=== PATIENT | female | born 1955 | race American Indian/Alaskan Native ===

== ENCOUNTER 2017-11-15 09:45 | Day surgery (SDC) | payer MEDICARE ==
[2017-11-15 10:18] VITALS: BMI 46.0
[2017-11-15] MEDS ORDERED: Bupivacaine 0.5% Inj(30mL) ONE (12:24)
[2017-11-15] MEDS ORDERED: Propofol 10 mg/ml Inj (20 ML) ONE (12:44)
[2017-11-15] MEDS ORDERED: Midazolam 2 MG/2 ML VIAL ONE (12:45)
--- NOTE | 2017-11-15 13:45 | PCM.SURG1 ---
Surgeon's Initial Post Op Note - Surgeon's Notes Surgeon: Dr. Arreola Recreation Specialist: Erin Mccoy, PGY2. Ángel Santana, OMS3 Type of Anesthesia: IV Sedation, Local Anesthesia Administered By: Dr. Corcoran Pre-Operative Diagnosis: Non-functional permacath, breast cancer Operative Findings: Intact, upright portacath in the subcutaneous tissue, fully removed in its entirety Post-Operative Diagnosis: same Operation Performed: Removal of portacath from right chest Specimen/Specimens Removed: portacath, portacath fluid culture Estimated Blood Loss: EBL {In ML}: 2 Blood Products Given: N/A Drains Used: No Drains Post-Op Condition: Good Date of Surgery/Procedure: 11/15/17 Time of Surgery/Procedure: 13:00
[2017-11-15] MEDS ORDERED: Oxycodone/Acetaminophen 5/325 mg Tab PO PRN (13:46)
[2017-11-15 13:56] VITALS: PULSE 70
[2017-11-15 14:26] VITALS: O2SAT 98
[2017-11-15 14:27] VITALS: RESP 18; TEMP 98.4
[2017-11-15 14:56] VITALS: BP 129/77
== END 2017-11-15 15:30 | disposition home or self-care (01) ==
LOC: SDS 09:45
PROVIDERS: ATTEND Surgery
DX: T85.618A Breakdown (mechanical) of other specified internal prosthetic devices, implants and grafts, initial encounter (principal); Y83.8 Other surgical procedures as the cause of abnormal reaction of the patient, or of later complication, without mention of misadventure at the time of the procedure; I10 Essential (primary) hypertension; Z85.3 Personal history of malignant neoplasm of breast
CPT/HCPCS: 36590; 87070; 87075; 88300; J0360; J0690; J2250; J2405; J2704; J3010; J7120

== ENCOUNTER 2018-05-26 09:07 | Inpatient (IN) | payer MEDICARE, OTHER ==
[2018-05-26 09:35] VITALS: BMI 45.5
--- NOTE | 2018-05-26 10:03 | ED PDOC ---
Arrival/HPI - General Chief Complaint: Shortness Of Breath Time Seen by Provider: 05/26/18 09:13 Historian: Patient - History of Present Illness Narrative History of Present Illness (Text): 05/26/18 09:58 62 year old female, whose past medical history includes hypertension, prior history of breast cancer, presents to the Emergency Department with history of shortness of breath with exertion for past several weeks. Patient reportedly had been evaluated at [facility] 2 days ago, was admitted and informed that she had "kidney problem". Patient signed out against medical advice and came to [place] as her PMD is at this facility. She denies headache or chest pain. She denies fevers or chills. She denies abdominal pain. She denies NEW leg pain or swelling. Denies recent injury. Patient reportedly had blood pressure medication changed two weeks ago. Patient also reportedly had a psychiatric medication changed several weeks ago. She denies any dark or bloody urine or stool. PMD: Dr. Flores 05/26/18 17:40 Past Medical History - Provider Review Nursing Documentation Reviewed: Yes - Infectious Disease Hx of Infectious Diseases: None - Reproductive Menopause: Yes - Cardiac Hx Hypertension: Yes - Pulmonary Hx Chronic Obstructive Pulmonary Disease (COPD): Yes - Neurological Hx Paralysis: No - Hematological/Oncological Hx Blood Transfusions: No Hx Blood Transfusion Reaction: No - Musculoskeletal/Rheumatological Hx Musculoskeletal Disorders: Yes - Genitourinary/Gynecological Hx Reproductive Disorders: No - Psychiatric Hx Bipolar Disorder: Yes Hx Depression: Yes Hx Substance Use: No - Surgical History Other/Comment: L lumpectomy last chemo 2016 - Anesthesia Hx Anesthesia Reactions: No Hx Malignant Hyperthermia: No - Suicidal Assessment Feels Threatened In Home Enviroment: No Family/Social History - Physician Review Nursing Documentation Reviewed: Yes Family/Social History: No Known Family HX Smoking Status: Never Smoked Hx Alcohol Use: No Hx Substance Use: No Hx Substance Use Treatment: No Allergies/Home Meds Allergies/Adverse Reactions: Allergies potassium Adverse Reaction (Intermediate, Verified 11/10/17 12:17) "FUNNY FEELING" Home Medications: Home Meds Medication Instructions Recorded Confirmed Febuxostat [Uloric] 80 mg PO QAM 08/19/16 05/26/18 Nebivolol [Bystolic] 10 mg PO BID 08/19/16 05/26/18 Olanzapine [Zyprexa] 20 mg PO DAILY 08/19/16 05/26/18 Clonazepam [Klonopin] 0.5 mg PO DAILY 11/10/17 05/26/18 Albuterol Sulfate [Ventolin Hfa] 2 puff NEB Q6 PRN 05/26/18 05/26/18 Benztropine [Cogentin] 1 mg PO QPM 05/26/18 05/26/18 Irbesartan [Irbesartan] 150 mg PO BID 05/26/18 05/26/18 Olanzapine [Zyprexa] 2.5 mg PO DAILY 05/26/18 05/26/18 traZODone [Desyrel] 50 mg PO DAILY 05/26/18 05/26/18 Review of Systems - Review of Systems Constitutional: Fatigue. absent: Fevers Eyes: absent: Vision Changes ENT: absent: Hearing Changes Respiratory: SOB. absent: Wheezing Cardiovascular: GUNTER, Orthopnea. absent: Chest Pain, Syncope Gastrointestinal: absent: Abdominal Pain, Diarrhea, Nausea Genitourinary Female: absent: Dysuria, Frequency, Hematuria Musculoskeletal: absent: Back Pain, Neck Pain Skin: absent: Rash Neurological: absent: Headache, Focal Weakness Endocrine: Diaphoresis. absent: Polyuria, Polydipsia Hemo/Lymphatic: absent: Easy Bleeding Psychiatric: absent: Depression Physical Exam - Physical Exam Narrative Physical Exam (Text): 05/26/18 10:04 Head: Atraumatic. Normocephalic. Eyes: PERRL. EOMI. Conjunctivae are not pale. ENT: Mucous membranes are moist and intact. Oropharynx is clear and symmetric. Neck: Supple. Full ROM. No JVD. No lymphadenopathy. Cardiovascular: Regular rate. Regular rhythm. Systolic murmur. Distal pulses intact. Pulmonary/Chest: No evidence of respiratory distress. Clear to auscultation bilaterally. No wheezing, rales or rhonchi. Abdominal: Soft and non-distended. There is no tenderness. No rebound, guarding, or rigidity. No organomegaly. Good bowel sounds. Rectal: no gross bleeding Back: No CVA tenderness. Extremities: No calf tenderness. Skin: Skin is warm and dry. No petechiae. No purpura. Neurological: Alert, awake, and oriented. Speech at baseline. No focal motor or sensory deficits. Psychiatric: Good eye contact. Normal interaction, affect, and behavior. Vital Signs Reviewed: Yes Vital Signs Temp Pulse Resp BP Pulse Ox 05/26/18 12:57 98.2 F 67 22 110/64 97 05/26/18 11:29 71 20 111/67 99 05/26/18 09:11 98.9 F 87 25 H 132/104 H 97 Temperature: Afebrile Blood Pressure: Hypertensive Pulse: Regular Respiratory Rate: Normal Appearance: Positive for: Well-Appearing, Non-Toxic, Comfortable Pain Distress: Mild Mental Status: Positive for: Alert and Oriented X 3 Medical Decision Making ED Course and Treatment: 05/26/18 10:04 Impression: 62 year old female presents complaining of dyspnea on exertion over the past 2 weeks as well diaphoresis with exertion. Patient reportedly at [facility] ER found to have a "kidney issue" Plan: -- EKG -- Labs -- Urinalysis -- Reassess and disposition Prior Visits: Notes and results from previous visits were reviewed. Progress Notes: Patient's history supplemented by family at bedside. They provide reports from [facility] and give permission to review: Reports done at [facility] 05/24/18 EXAM: Chest X-ray REPORTED BY: Dr. Ramos READ: 05/24/18 11:50PM IMPRESSION: Elevated right hemidiaphragm. Cardiomegaly and tortuous thoracic aorta clear lungs. EXAM: Renal and Bladder Ultrasound Results Date: May 25, 2018 21:02 EDT IMPRESSION: 1.No hydronephrosis. Midly echogenic renal cortical echotexture suggesting medcial renal disease. 2. Limited view of the lover demonstrate suspicion of several liver lesions, which is suspicious for neoplastic processes given provided history of breast carcinoma. If patient is able, recommend CT chest, abdomen and pelvis with intravenous contrast for metastatic workup. 3. Small amounts of perihepatic ascites and ascites within the pelvis. Exact etiology is not determined, but differential can include changes related to the lover lesions versus other systemic processes. 4. Very limited bladder evaluation due to underdistention. For optimal evaluation, bladder should be more distended. Findings were dsicussed with Dr. Toshia Powell at 11:58PM on 05/25/18 EXAM: Bilateral lower extremity Venous Doppler REPORTED BY: 05/25/18 21:19 EDT IMPRESSION: 1. No evidence of deep venous thrombosis in bilateral common femoral vein, superficial femoral vein and popliteal vein. 2. Large right popliteal cyst. Findings were discussed with Dr. Toshia Powell at 11:58 PM on 05/25/18 EXAM: NM Lung Scan Ventilation & Perfusion REPORTED BY: 05/25/18 13:56 EDT IMPRESSIONS: Low Probability of pulmonary embolism. Lab results: WBC: 05/24/18: 16.1 K/UL H 05/25/18: 18.4 K/UL H Hgb: 05/25/18: 9.6 g/dL L BUN: 05/25/18: 33.0mg/dL H Creatinine: 05/25/18: 29mL/min/1.7 05/26/18 17:48 Patient currently with no hypoxia. No chest pain. No history or signs of active bleeding currently. Patient has leukocytosis but afebrile. No cough or wheezing currently noted. She has recent Lung scan as noted above that is low probability of pulmonary embolism. Patient is anemic. Creatinine remains elevated, this reportedly is higher than baseline as per PMD. I have reviewed labs from [facility] and imaging reports from [facility] with the patient. She denies any dysuria or frequency. She is currently afebrile and cv stable. Dr. Flores informed of UA results, patient will be initiated on antibiotics as per Dr. Flores, started on Rocephin. Lab results and imaging studies reviewed with patient and family, will admit for cardiac monitoring and specialty consultations. - Lab Interpretations Lab Results: 05/26/18 10:20 05/26/18 10:20 Lab Results 05/26/18 11:42: Urine Color Yellow, Urine Appearance Clear, Urine pH 6.0, Ur Specific Ray >= 1.030, Urine Protein 30 H, Urine Glucose (UA) Negative, Urine Ketones Negative, Urine Blood Negative, Urine Nitrate Negative, Urine Bilirubin Small H, Urine Urobilinogen 1.0 H, Ur Leukocyte Esterase Negative, Urine RBC 0 - 2, Urine WBC 0 - 2, Ur Epithelial Cells 4 - 5, Urine Bacteria Mod 05/26/18 10:20: Sodium 138, Potassium 3.9, Chloride 103, Carbon Dioxide 21, Anion Gap 18, BUN 48 H, Creatinine 2.9 H, Est GFR ( Amer) 20, Est GFR ( Non-Af Amer) 16, Random Glucose 112 H, Calcium 8.5, Magnesium 2.5 H, Total Bilirubin 1.2, AST 79 H, ALT 39, Alkaline Phosphatase 272 H, Lactate Dehydrogenase 2949 H, Total Creatine Kinase 149, Troponin I < 0.01, NT-Pro-B Natriuret Pep 608 H, Total Protein 6.3, Albumin 3.3, Globulin 3.0, Albumin/ Globulin Ratio 1.1 05/26/18 10:20: PT 13.3 H, INR 1.15, APTT 27.1 05/26/18 10:20: WBC 15.2 H D, RBC 4.17, Hgb 9.8 L D, Hct 31.7 L, MCV 76.0 L D, MCH 23.5 L, MCHC 30.9 L, RDW 16.0 H, Plt Count 424, MPV 9.0, Gran % 82.2 H, Lymph % (Auto) 5.3 L, [place] % (Auto) 9.4 H, Eos % (Auto) 3.0, Baso % (Auto) 0.1, Gran # 12.53 H, Lymph # (Auto) 0.8 L, [place] # (Auto) 1.4 H, Eos # (Auto) 0.5, Baso # (Auto) 0.01 I have reviewed the lab results: Yes - RAD Interpretation Radiology Orders: 05/26/18 11:11 CHEST PORTABLE [RAD] Stat - EKG Interpretation Interpreted by ED Physician: Yes Type: 12 lead EKG - Medication Orders Current Medication Orders: Benztropine Mesylate (Cogentin) 1 mg PO QPM TAZ Clonazepam (Klonopin) 0.5 mg PO DAILY TAZ PRN Reason: Protocol Last Admin: 05/26/18 16:02 Dose: 0.5 mg Behavioural Document 05/26/18 16:02 RT (Rec: 05/26/18 16:02 RT [id number]) Maintenance Maintenance Dose Yes Nonmedicinal Nonmedicinal Interventions Therapeutic Communication Re-Assess: Reassess Psych Meds Document 05/26/18 17:02 RT (Rec: 05/26/18 17:39 RT [id number]) Reassess Psych Med Effective Dextrose/Sodium Chloride (Dextrose 5%/0.45% Ns 1000 Ml) 1,000 mls @ 75 mls/hr IV .[id number] TAZ Last Admin: 05/26/18 16:02 Dose: 75 mls/hr eMAR Start Stop Document 05/26/18 16:02 RT (Rec: 05/26/18 16:04 RT [id number]) Intravenous Solution Start Date 05/26/18 Start Time 16:02 End Date 05/26/18 Ceftriaxone Sodium (Rocephin 1 Gram Ivpb) 1 gm in 100 mls @ 100 mls/hr IVPB DAILY TAZ PRN Reason: Protocol Last Admin: 05/26/18 17:39 Dose: 100 mls/hr eMAR Start Stop Document 05/26/18 17:39 RT (Rec: 05/26/18 17:39 RT [id number]) Intravenous Solution Start Date 05/26/18 Start Time 17:39 End Date 05/26/18 End time 18:40 Total Infusion Time 61 Levalbuterol HCl (Xopenex) 1.25 mg IH TIDRESP TAZ Olanzapine (Zyprexa) 20 mg PO DAILY TAZ Olanzapine (Zyprexa) 2.5 mg PO DAILY TAZ PRN Reason: Protocol Last Admin: 05/26/18 16:02 Dose: 2.5 mg Behavioural Document 05/26/18 16:02 RT (Rec: 05/26/18 16:02 RT [id number]) Maintenance Maintenance Dose Yes Behavior Behavior for Medication: Anxiety Trazodone HCl (Desyrel) 50 mg PO DAILY [facility] Last Admin: 05/26/18 16:02 Dose: 50 mg Discontinued Medications Pneumococcal Polyvalent Vaccine (Pneumovax 23 Vaccine) 0.5 ml IM .ONCE ONE Stop: 05/26/18 14:08 - Scribe Statement The provider has reviewed the documentation as recorded by the Zachery Hurley Provider Scribe Attestation: All medical record entries made by the Zachery were at my direction and personally dictated by me. I have reviewed the chart and agree that the record accurately reflects my personal performance of the history, physical exam, medical decision making, and the department course for this patient. I have also personally directed, reviewed, and agree with the discharge instructions and disposition. Disposition/Present on Arrival - Present on Arrival Any Indicators Present on Arrival: No History of DVT/PE: No History of Uncontrolled Diabetes: No Urinary Catheter: No History of Decub. Ulcer: No History Surgical Site Infection Following: None - Disposition Have Diagnosis and Disposition been Completed?: Yes Diagnosis: Acute renal failure, Leukocytosis, Anemia, Dyspnea on exertion, Liver lesion Disposition: HOSPITALIZED Disposition Time: 11:00 Patient Plan: Admission Patient Problems: Current Active Problems Problem Status Onset Acute renal failure Acute Anemia Acute Dyspnea on exertion Acute Leukocytosis Acute Liver lesion Acute Condition: FAIR
[2018-05-26 10:34] LABS: BASO # 0.01 K/mm3 (0.0-2.0); BASO % 0.1 % (0.0-3.0); EOS # 0.5 (0.0-0.7); GRAN # 12.53 (1.4-6.5); GRAN % 82.2 % (50.0-68.0); HEMOGLOBIN 9.8 g/dL (12.0-16.0); LYMPH # 0.8 (1.2-3.4); LYMPH % 5.3 % (22.0-35.0); MEAN CORPUSCULAR HEMOGLOBIN 23.5 pg (25.0-35.0); MEAN CORPUSCULAR HGB CONC 30.9 g/dl (31.0-37.0); MONO # 1.4 (0.1-0.6); MONO % 9.4 % (1.0-6.0); RBC 4.17 10^6/uL (3.5-6.1); WHITE BLOOD COUNT 15.2 10^3/ul (4.5-11.0)
[2018-05-26 10:42] LABS: ALB/GLOB RATIO 1.1 (1.1-1.8); ALBUMIN 3.3 g/dL (3.0-4.8); ALT/SGPT 39 U/L (7-56); AST/SGOT 79 U/L (14-36); BLOOD UREA NITROGEN 48 mg/dL (7-21); CALCIUM 8.5 mg/dL (8.4-10.5); GFR NON-AFRICAN AMERICAN 16
[2018-05-26 10:45] LABS: INR 1.15; PARTIAL THROMBOPLASTIN TIME 27.1 Seconds (25.1-36.5); PROTHROMBIN TIME 13.3 SECONDS (9.4-12.5)
[2018-05-26 10:54] LABS: B-TYPE NATRIURETIC PEPTIDE 608 pg/mL (0-450); TROPONIN I < 0.01 ng/mL
[2018-05-26 11:50] LABS: URINE BILIRUBIN SMALL (NEGATIVE); URINE BLOOD NEGATIVE (NEGATIVE); URINE GLUCOSE (UA) NEGATIVE (NEGATIVE); URINE LEUKOCYTE ESTERASE NEGATIVE Leu/uL (NEGATIVE); URINE PROTEIN 30 mg/dL (<30 mg/dL)
[2018-05-26 11:51] LABS: URINE APPEARANCE CLEAR (CLEAR); URINE COLOR YELLOW (YELLOW)
[2018-05-26 11:57] LABS: URINE BACTERIA MOD (NEG); URINE RBC 0 - 2 /hpf (0-2); URINE WBC 0 - 2 /hpf (0-6)
--- NOTE | 2018-05-26 12:00 | RAD ---
Date of service: 05/26/2018 HISTORY: sob with exertion COMPARISON: 10/12/2016 FINDINGS: LUNGS: No active pulmonary disease. PLEURA: No significant pleural effusion identified, no pneumothorax apparent. CARDIOVASCULAR: Mild cardiomegaly. Elevation of the right image OSSEOUS STRUCTURES: No significant abnormalities. VISUALIZED UPPER ABDOMEN: Normal. OTHER FINDINGS: None. IMPRESSION: No active disease.
[2018-05-26] MEDS ORDERED: Pneumococcal 23-Valent Vaccine IM ONE (14:07)
[2018-05-26] MEDS ORDERED: Barium Sulfate Susp 2.1% w/v, 2.0% w/w 450 mL Bottle PO ONE (15:33)
[2018-05-26] MEDS: Dextrose 5%/0.45% NS 1,000 ML IV SCH (16:02)
[2018-05-26] MEDS: cefTRIAXone 1 gm 1 GM/100 ML BAG IVPB SCH (17:39)
--- NOTE | 2018-05-26 17:41 | CARD ---
APPROVED REPORT Date of service: 05/26/2018 EKG Measurement Heart [id number] CT 170P26 [id number] <Conclusion> Normal sinus rhythm Minimal voltage criteria for LVH, may be normal variant Possible Anterior infarct, age undetermined Abnormal ECG
[2018-05-26] MEDS: Levalbuterol 1.25 MG/3 ML Inhal Soln UD IH SCH (20:24)
--- NOTE | 2018-05-26 21:14 | HP ---
Copied To: Jessica Flores MD Attending MD: Jessica Flores MD HISTORY OF PRESENT ILLNESS: The patient is 62 years old, known to me from office practice. Recently since valsartan was recalled, she was stared on irbesartan. Patient sates since she had that she started to develop some shortness of breath with leg swelling. It has been going on for last two weeks, but it has had got worse yesterday so she went to [facility]. She was evaluated, started on IV fluid but for some reason she got upset, signed against medical advice and came to emergency room for further evaluation. Complaining of feeling weak, tired, short of breath. Denies any nausea. Does complain of loss of appetite. No cough, congestion. No diarrhea. PAST MEDICAL HISTORY: Significant for; 1. Bipolar disorder. 2. Hypertension. 3. Hyperlipidemia. 4. History of gout. 5. History of CA breast. Patient had chemotherapy and radiation for her breast cancer and she is under the care of Dr. Mariano for that. ALLERGIES: POTASSIUM. MEDICATIONS AT HOME: The patient is on trazodone 50 mg daily, Zyprexa 2.5 mg in the morning, Zyprexa 20 mg at bedtime, Bystolic 10 mg twice a day, irbesartan 150 twice a day, Uloric 80 mg daily, Klonopin 0.5 b.i.d., Cogentin 1 mg in the evening and nebulizer treatment. SOCIAL HISTORY: Denies smoking, drinking or alcohol use. REVIEW OF SYSTEMS: Complaining of generalized weakness. PHYSICAL EXAMINATION: GENERAL: She is awake, alert, oriented, communicative. VITAL SIGNS: She is afebrile, pulse 70, respiration 17, blood pressure 105/60. LUNGS: Bilateral fair airflow. No rhonchi or crackle. HEART: S1, S2 audible. ABDOMEN: Soft, nontender. No rebound. No guarding. NEUROLOGICAL: She is awake, alert, oriented, communicative. LABORATORY EXAM: WBC 16.2, hemoglobin 9.8, hematocrit 31.7, platelets 424. PT 13.3, INR 1.15. Chemistry: Sodium 138, potassium 3.9. chloride 103, CO2 of 21, BUN 48, creatinine 2.9. Blood sugar of 112. Magnesium 2.5. AST 79, alkaline phosphatase 272. LDH is 2949. BNP is 608. Urinalysis shows small bilirubin. Blood culture, urine cultures are pending. DIAGNOSTIC DATA: X-ray of chest, no active disease. ASSESSMENT: 1. Acute renal failure, her last creatinine in 12/2017 was 0.8. 2. Leukocytosis, etiology unclear yet. 3. History of cancer of breast, status post lumpectomy, chemotherapy and radiation. 4. History of gout. 5. Hypertension. 6. Exertional dyspnea. PLAN: We will restart her usual medication. Order for echocardiogram. I will also order for CT of the abdomen and pelvis. She has ultrasound done in [facility], but told she has a spot on the liver. However, her LDH seems to be high. There is suspicion of questionable metastasis in the liver. I will order for Xopenex. Nephrology consult and Cardiology consult has been requested. Jessica Flores MD
[2018-05-27] MEDS: Dextrose 5%/0.45% NS 1,000 ML IV SCH (05:25)
[2018-05-27 06:53] LABS: ALB/GLOB RATIO 1.1 (1.1-1.8); ALBUMIN 2.9 g/dL (3.0-4.8); CALCIUM 8.1 mg/dL (8.4-10.5); URIC ACID 4.3 mg/dL (2.5-6.2)
[2018-05-27 06:56] LABS: BASO # 0.01 K/mm3 (0.0-2.0); BASO % 0.1 % (0.0-3.0); EOS # 0.6 (0.0-0.7); EOS % 4.9 % (1.5-5.0); GRAN # 10.07 (1.4-6.5); GRAN % 76.5 % (50.0-68.0); LYMPH % 7.5 % (22.0-35.0); MEAN CELL VOLUME 75.3 fl (80.0-105.0); MEAN CORPUSCULAR HEMOGLOBIN 23.4 pg (25.0-35.0); MEAN PLATELET VOLUME 9.1 fl (7.0-11.0); MONO # 1.4 (0.1-0.6); RBC 3.85 10^6/uL (3.5-6.1); RED CELL DISTRIBUTION WIDTH 16.2 % (11.5-14.5); WHITE BLOOD COUNT 13.2 10^3/ul (4.5-11.0)
[2018-05-27] MEDS: Levalbuterol 1.25 MG/3 ML Inhal Soln UD IH SCH ×3 (08:42→19:35)
--- NOTE | 2018-05-27 09:12 | CP.PCM.CON ---
History of Present Illness - History of Present Illness History of Present Illness: awake, alert, mild shortness of breath, daughter at bedside Reason for consultation: cardiac evaluation of shortness of breath Brief history of present illness: A 62 year old female, morbidly obese, who came in to [facility] due to shortness of breath on exertion for the past several weeks. They went to [facility] initially but signed against medical advice.She follows up with Dr. Flores. History of hypertension, COPD, bipolar disorder, depression, hyperlipidemia, gout, left breast lumpectomy, breast cancer with chemotherapy 08/2017. Seen and examined by me and Dr. Leon Review of Systems - Review of Systems All systems: reviewed and no additional remarkable complaints except Review of Systems: from HPI Past Patient History - Infectious Disease Hx of Infectious Diseases: None - Past Social History Smoking Status: Never Smoked - CARDIAC Hx Hypertension: Yes - PULMONARY Hx Chronic Obstructive Pulmonary Disease (COPD): Yes - NEUROLOGICAL Hx Paralysis: No - HEENT Hx HEENT Problems: No - RENAL Hx Chronic Kidney Disease: Yes Other/Comment: arf abnormal labs recently [place] [facility] [place] - ENDOCRINE/METABOLIC Hx Endocrine Disorders: No - HEMATOLOGICAL/ONCOLOGICAL Hx Blood Transfusions: No Hx Blood Transfusion Reaction: No - INTEGUMENTARY Hx Dermatological Problems: Yes Other/Comment: rcw scar from pac removal 11/15/2017, left breast scar, thick hard toenails, hx r ft cellulitis - MUSCULOSKELETAL/RHEUMATOLOGICAL Hx Musculoskeletal Disorders: Yes - GASTROINTESTINAL Hx Gastrointestinal Disorders: Yes (obese) - GENITOURINARY/GYNECOLOGICAL Hx Reproductive Disorders: No - PSYCHIATRIC Hx Bipolar Disorder: Yes Hx Depression: Yes Hx Substance Use: No - SURGICAL HISTORY Other/Comment: L lumpectomy last chemo 2016 - ANESTHESIA Hx Anesthesia Reactions: No Hx Malignant Hyperthermia: No Meds Allergies/Adverse Reactions: Allergies Allergy/AdvReac Type Severity Reaction Status Date / Time potassium AdvReac Intermediate "FUNNY Verified 11/10/17 12:17 FEELING" - Medications Medications: Current Medications Benztropine Mesylate (Cogentin) 1 mg PO QPM TAZ Last Admin: 05/26/18 21:34 Dose: 1 mg Clonazepam (Klonopin) 0.5 mg PO DAILY TAZ PRN Reason: Protocol Last Admin: 05/26/18 16:02 Dose: 0.5 mg Dextrose/Sodium Chloride (Dextrose 5%/0.45% Ns 1000 Ml) 1,000 mls @ 75 mls/hr IV .[id number] [facility] Last Admin: 05/27/18 05:25 Dose: 75 mls/hr Ceftriaxone Sodium (Rocephin 1 Gram Ivpb) 1 gm in 100 mls @ 100 mls/hr IVPB DAILY TAZ PRN Reason: Protocol Last Admin: 05/26/18 17:39 Dose: 100 mls/hr Levalbuterol HCl (Xopenex) 1.25 mg IH TIDRESP [facility] Last Admin: 05/27/18 08:42 Dose: 1.25 mg Nystatin (Nystatin Oral Susp) 5 ml PO QID [facility] Olanzapine (Zyprexa) 20 mg PO DAILY [facility] Olanzapine (Zyprexa) 2.5 mg PO DAILY [facility] PRN Reason: Protocol Last Admin: 05/26/18 16:02 Dose: 2.5 mg Trazodone HCl (Desyrel) 50 mg PO DAILY [facility] Last Admin: 05/26/18 16:02 Dose: 50 mg Physical Exam - ENT Exam ENT Exam: Mucous Membranes Dry - Respiratory Exam Respiratory Exam: Accessory Muscle Use, Decreased Breath Sounds, Wheezes Additional comments: mild Expiratory wheezing - Cardiovascular Exam Cardiovascular Exam: REGULAR RHYTHM, +S1, +S2 - GI/Abdominal Exam GI & Abdominal Exam: Normal Bowel Sounds, Soft - Extremities Exam Additional comments: 2+ pedal edema - Neurological Exam Neurological exam: Alert, Oriented x3 - Psychiatric Exam Psychiatric exam: Normal Affect - Skin Skin Exam: Dry, Intact, Warm Results - Vital Signs Recent Vital Signs: Last Vital Signs Temp 99.1 F 05/27/18 06:00 Pulse 80 05/27/18 06:00 Resp 18 05/27/18 06:00 BP 108/70 05/27/18 06:00 Pulse Ox 98 05/27/18 06:00 - Labs Result Diagrams: 05/27/18 06:00 05/27/18 06:00 Labs: Laboratory Results - last 24 hr 05/27/18 05/27/18 06:00 06:00 WBC 13.2 H RBC 3.85 Hgb 9.0 L Hct 29.0 L MCV 75.3 L MCH 23.4 L MCHC 31.0 RDW 16.2 H Plt Count 400 MPV 9.1 Gran % 76.5 H Lymph % (Auto) 7.5 L [place] % (Auto) 11.0 H Eos % (Auto) 4.9 Baso % (Auto) 0.1 Gran # 10.07 H Lymph # (Auto) 1.0 L [place] # (Auto) 1.4 H Eos # (Auto) 0.6 Baso # (Auto) 0.01 Sodium 138 Potassium 3.5 L Chloride 104 Carbon Dioxide 21 Anion Gap 16 BUN 49 H Creatinine 2.3 H Est GFR ( Amer) 26 Est GFR (Non-Af Amer) 21 Random Glucose 107 Uric Acid 4.3 Calcium 8.1 L Total Bilirubin 0.6 AST 87 H ALT 28 Alkaline Phosphatase 269 H Total Protein 5.7 L Albumin 2.9 L Globulin 2.8 Albumin/Globulin Ratio 1.1 Assessment & Plan - Assessment and Plan (Free Text) Assessment: A 62 year old female, morbidly obese, who came in to [facility] due to shortness of breath on exertion for the past several weeks. They went to [facility] initially but signed against medical advice.She follows up with Dr. Flores (PMD) History of hypertension, COPD, bipolar disorder, depression, hyperlipidemia, gout, left breast lumpectomy, breast cancer with chemotherapy . She takes Valsartan but due to recall changed to Irbesartan. Daughter claimed since then she had shortness of breath and log swelling. Also daughter claimed that they have home renovations adjacent to her room wondering if that causes her shortness of breath too. Rule out congestive heart failure. Exacerbation of COPD. [place] [facility] [place]: 05/25/18- VQ Lung Scan- low probability of pulmonary embolism. 05/25/18- Venous doppler of both legs- no evidence of DVT. Large right popliteal cyst. Review of previous cardiac work up: 02/17/16- Stress Test done- Normal myocardial perfusion 11/15/17- Removal of samuel cath right chest Plan: For ECHO to evaluate LV function Mild shortness of breath Continue nebulizer treatment Will start low dose Solumedrol Heart rate and blood pressure controlled Elevated BUN/Creatinine CT of pelvis and abdomen done awaiting final report Continue IV fluids D5 1/2 NSS at 75 cc/hr for hydration Continue current medications Continue current treatment Further recommendations during hospital course Will follow up Plan and treatment discussed with Dr. Leon Thank you Dr. Flores for the opportunity of taking care of Ms. Leydi Strong - Date & Time Date: 05/27/18 Time: 06:35
--- NOTE | 2018-05-27 10:15 | CON ---
Copied To: Genaro Goldman MD Attending MD: Genaro Godlman MD DATE: 05/27/2018 The patient admitted by Dr. Flores. REFERRING MD: Jessica Flores MD. REASON FOR CONSULTATION: Evaluation of a patient unknown to me who presents with an elevated BUN and creatinine. HISTORY OF PRESENT ILLNESS: The patient is a pleasant 62-year-old black female with a long history of bipolar disorder, never on lithium; history of hypertension of years duration; hyperlipidemia; history of gout; history of left breast cancer, status post chemotherapy, radiation therapy, but no chemotherapy in the last year. History of anemia. The patient presented to [facility] not feeling well. She was noted to have a mild elevation of BUN and creatinine. According to her daughter, a renal ultrasound was done, which was unremarkable. The patient left to come to [facility]. In [facility], she was noted to have a BUN of 48 with a creatinine of 2.9. Her baseline BUN is less than 10 with a creatinine of 0.7 dating back to 11/2017 - 12/2017. The patient has had no recent new medications other than a change from generic Diovan to generic Avapro. She had been stable on angiotensin receptor blockers in the past. She does not use diuretic therapy. She has had no recent medication changes. She has had no recent dye studies. The patient had been complaining of some mild diarrhea over the last several days. She is also complaining of some mild shortness of breath. The patient presents to the hospital for evaluation of her elevated BUN and creatinine. She has no history of UTIs. No family history of kidney disease. She is also noted to be mildly anemic. Her urines were unremarkable with trace protein and otherwise normal. With IV fluid hydration, her BUN has dropped, has remained stable 48-49 and creatinine has dropped from 2.9 to 2.3. The patient had an abdominal and pelvic CT scan, results are pending at the time of this dictation. PAST MEDICAL HISTORY: Significant for bipolar disorder, on Zyprexa. The patient states she never had lithium. History of hypertension, controlled in the outpatient setting on Bystolic and valsartan, which was switched to irbesartan. Hyperlipidemia. History of gout. History of left-sided breast cancer. Last chemotherapy was 1 year ago. History of anemia. MEDICATIONS AT HOME: Include that of trazodone, Zyprexa, Bystolic, irbesartan, Uloric, Klonopin, Cogentin, and Ventolin inhaler therapy. ALLERGIES: THE PATIENT IS ALLERGIC TO POTASSIUM, MORE OF A SIDE EFFECT THAN AN ALLERGY. CURRENT MEDICATIONS IN HOSPITAL: Include that of Cogentin, trazodone, D5 half-normal saline 75 mL an hour, Klonopin, nystatin, one dose of Rocephin, Xopenex and Zyprexa. SOCIAL HISTORY: No history of cigarette smoking. No history of alcohol use. No history of substance abuse. FAMILY HISTORY: Father of occupational exposure to carcinogens and lung cancer. Mother of bleeding secondary to uterine/ovarian cancer and a history of a CVA. REVIEW OF SYSTEMS: GENERAL: The patient states that appetite has been fair. Weight has been stable. ENT: Denies any hearing or visual problems. PULMONARY: Positive for exertional dyspnea. No history of pneumonia. No history of COPD, bronchitis, asthma. CARDIAC: No history of known coronary artery disease. GI: History of mild diarrhea. No abdominal pain, no constipation. No nausea or vomiting. : No history of previous chronic kidney disease. No history of UTIs. INVESTMENT CONSULTANT: Postmenopausal. ENDOCRINE: No history of diabetes. MUSCULOSKELETAL: No complaints. NEURO: No past history of CVA, TIA, seizures or syncope. HEM/ONC: History of anemia as noted above. History of breast cancer, followed by Oncology. PSYCHIATRIC: History is positive for bipolar disorder. PHYSICAL EXAMINATION: GENERAL: The patient is currently seen with her daughter on telemetry. She appears to be in no acute distress. IV fluids are infusing. VITAL SIGNS: Blood pressure is 108/70, temperature 99.1, respiratory rate is 18. Oxygen saturation is 98%. HEENT: Exam shows her to be normocephalic, atraumatic. Conjunctiva are pale. Sclerae are nonicteric. Pupils equal, reactive to light and accommodation. Extraocular muscles are intact. Posterior pharynx is normal. NECK: Supple. No neck vein distention. No thyromegaly. No lymphadenopathy. No bruits. CHEST: Clear to auscultation and percussion with no rales, rhonchi or wheezing. Positive scar right chest wall in an area of a port removal. CARDIOVASCULAR: Shows a regular rate and rhythm with no audible murmurs, rubs or gallops noted. ABDOMEN: Soft. Obese. Bowel sounds normal. No rebound, guarding or masses. BACK: No CVAT. No spinal tenderness. EXTREMITIES: Show puffy legs, but no pitting edema. No cyanosis or clubbing. Distal lower extremity pulses are reduced at 1-2+ bilaterally. NEURO: Shows her to be alert, oriented x3 with no gross focal motor or sensory deficits noted. LABORATORY DATA AND IMAGING: Admitting abdominopelvic CT scan results are pending. Chest x-ray: No acute pulmonary disease. EKG showed normal sinus rhythm. The patient's daughter states that a renal ultrasound done in [facility] was unremarkable. Labs: CBC, white blood cell count 13.2 with a hemoglobin of 9 and a platelet count of 400,000. Coags: PT of 13.3 with a PTT of 27.1. Chemistries are normal. Potassium is slightly lower at 3.5, down from 3.9. BUN remains stable in the upper 40 range, it is currently 49. Creatinine is down from 2.9 to 2.3 with hydration. Glucose is 107. Uric acid 4.3. Calcium 8.1 with an albumin of 2.9, corrects to normal. Magnesium level was 2.5. Mild elevation of her liver enzymes noted. Urines were unremarkable. Trace protein. Otherwise negative. Microbiology: No results to comment on. ASSESSMENT: 1. Acute renal failure in a patient with no past history of chronic kidney disease. Possibilities include that of perhaps mild diarrhea. Perhaps decreased p.o. fluid hydration. The patient was also switched from one angiotensin receptor wade to another, so I am not certain that is playing a role as she never had any difficulties with generic Diovan. Judiciously, angiotensin receptor wade therapy was discontinued. Agree with IV fluid hydration. Check urine sodium, urine creatinine, urine Saran stain. Await results of her abdominal and pelvic CT scan with attention to the kidneys. Expect to see a fall in BUN and creatinine with hydration. There does not appear to be any infection at this point in time. 2. History of hypertension. Blood pressure is currently well controlled, off medication. She had been on Bystolic and irbesartan in the outpatient setting. 3. History of hyperlipidemia. The patient is on diet therapy. 4. History of gout. The patient had been on Uloric. Uric acid levels are normal. With her elevated BUN and creatinine, if the patient should continue Uloric, which should be decreased to 40 mg a day. 5. History of breast cancer. Status post chemotherapy, radiation therapy. No recent intervention. This appears to be stable. There is some question about the possibility of a defect seen in her liver. She does of note have elevated liver enzymes. We will await results of the abdominal CT scan. 6. History of anemia. Hemoglobin is down to 9. I will check iron, TIBC, ferritin, B12, folate levels. PLAN: 1. Discussed with the patient and her daughter in detail. We will continue IV fluid hydration. We will avoid angiotensin receptor wade therapy. We will await results of the imaging studies. I will obtain urine electrolytes and a urine Saran stain. The patient needs accurate I's and O's and I expect her BUN and creatinine to drift down to normal. 2. Await results of abdominopelvic CT scan with focus on the liver and on the kidney. 3. Daily labs. 4. Obtain phosphorus level p.r.n. binder therapy. 5. P.r.n. renal diet if BUN and creatinine do not improve. 6. Hold angiotensin receptor wade in light of the elevated BUN and creatinine. 7. Question duration of antibiotic therapy. There does not appear to be any active infection. 8. Close renal followup during hospitalization and continue to monitor the patient on telemetry. 9. For her bipolar disorder, the patient may continue present medication and of note, the patient is not receiving lithium. Thank you for letting me partake and share in the care of your patient. Genaro Goldman MD
--- NOTE | 2018-05-27 10:25 | CT ---
Date of service: 05/26/2018 PROCEDURE: CT Abdomen and Pelvis with contrast HISTORY: abdominal pain COMPARISON: None. TECHNIQUE: CT scan of the abdomen and pelvis was performed without administration of intravenous contrast. Oral contrast was administered. Coronal and sagittal reformatted images were obtained. Radiation dose: Total exam DLP = 1234.95 mGy-cm. This CT exam was performed using one or more of the following dose reduction techniques: Automated exposure control, adjustment of the mA and/or kV according to patient size, and/or use of iterative reconstruction technique. FINDINGS: LOWER THORAX: Multiple scattered pulmonary nodules, the largest in the right lung base measures 11 mm. LIVER: The liver is enlarged. There are multiple large masses in the right hepatic lobe difficult to characterize in the absence of intravenous contrast. GALLBLADDER AND BILE DUCTS: Contracted. PANCREAS: Normal in size. No gross lesion or ductal dilatation. SPLEEN: Normal in sinus. ADRENALS: No discrete nodule. KIDNEYS AND URETERS: Normal in size. No hydronephrosis. No solid mass. VASCULATURE: Unremarkable. No aortic aneurysm. BOWEL: The small bowel loops are normal in caliber. The colon is unremarkable. . No obstruction. No gross mural thickening. APPENDIX: Normal appendix. PERITONEUM: Small amount of free fluid in the abdomen and pelvis. No free air. LYMPH NODES: No enlarged lymph nodes. BLADDER: Partially decompressed. REPRODUCTIVE: The uterus is normal in size. BONES: No acute fracture. Advanced multilevel degenerative disc disease. OTHER FINDINGS: There is diffuse anasarca. IMPRESSION: Metastatic deposits in the liver and visualized lungs. Small abdominal and pelvic ascites. No primary is identified in the abdomen however evaluation is limited in the absence of intravenous contrast. A preliminary report was provided by [facility].
[2018-05-27] MEDS: MethylPREDNISolone 40 mg Vial IVP SCH ×2 (10:27→21:53)
[2018-05-27] MEDS: Nystatin 100,000 Units/ml Oral Susp 5 ml UD PO SCH ×4 (10:29→21:53)
[2018-05-27] MEDS: cefTRIAXone 1 gm 1 GM/100 ML BAG IVPB SCH (11:00)
--- NOTE | 2018-05-27 13:55 | CT ---
Date of service: 05/27/2018 PROCEDURE: CT Chest without contrast HISTORY: r/o mets COMPARISON: None available. TECHNIQUE: Contiguous axial images were obtained through the chest without intravenous contrast enhancement. Sagittal and coronal reconstructions were performed. Radiation dose (DLP): mGy-cm. This CT exam was performed using one or more of the following dose reduction techniques: Automated exposure control, adjustment of the mA and/or kV according to patient size, and/or use of iterative reconstruction technique. FINDINGS: LUNGS: The lungs are well inflated. There are multiple scattered noncalcified parenchymal nodules in both lungs, the largest in the right lung base measures 11 mm. MEDIASTINUM: The aorta is not dilated. The heart is normal in size. No pericardial effusion. Evaluation of mediastinal and hilar lymphadenopathy is not possible in the absence of intravenous contrast. PLEURA: Small right pleural effusion. . No pneumothorax. BONES: No fracture. No destructive lesion. OTHER FINDINGS: None. IMPRESSION: Multiple noncalcified parenchymal nodules scattered in both lungs, the largest in the right lung base measures 12 mm presumable metastatic in etiology. Small right pleural effusion. Evaluation of mediastinal and hilar lymphadenopathy is not possible in the absence of intravenous contrast.
--- NOTE | 2018-05-27 14:09 | CARD ---
APPROVED REPORT Date of service: 05/27/2018 EXAM: Two-dimensional and M-mode echocardiogram with Doppler and color Doppler. INDICATION Dyspnea 2D DIMENSIONS Left Atrium (2D)3.3 (1.6-4.0cm)IVSd1.0 (0.7-1.1cm) Aortic Root (2D)3.4 (2.0-3.7cm)LVDd4.3 (3.9-5.9cm) PWd1.1 (0.7-1.1cm)LVDs2.2 (2.5-4.0cm) FS (%) 50.2 %LVEF (%)81.8 (>50%) M-Mode DIMENSIONS Aortic Cusp Exc.2.20 (1.5-2.0cm) Mitral Valve MV E Avcqogoe97.4cm/sMV A Tfvldiyo33.8cm/sE/A ratio0.9 TDI Lateral E' Peak V13.20cm/sMedial E' Peak V6.53cm/sE/Lateral E'4.3 E/Medial E'8.8 Pulmonary Valve PV Peak Vskapswk62.7cm/sPV Peak Grad.4mmHg Tricuspid Valve TR Peak Xthckntj453xm/sRAP [id number] Peak Gr.15mmHg [id number] LEFT VENTRICLE The left ventricle is normal size. There is normal left ventricular wall thickness. The left ventricular function is normal. The left ventricular ejection fraction is within the normal range. There is normal LV segmental wall motion. Transmitral Doppler flow pattern is Grade I-abnormal relaxation pattern. No left ventricle thrombus noted on this study. There is no ventricular septal defect visualized. RIGHT VENTRICLE The right ventricle is normal size. There is normal right ventricular wall thickness. The right ventricular systolic function is normal. ATRIA The left atrium size is normal. The right atrium size is normal. AORTIC VALVE The aortic valve is normal in structure. No aortic regurgitation is present. There is no aortic valvular stenosis. MITRAL VALVE The mitral valve is normal in structure. There is no mitral valve regurgitation noted. There is no mitral valve stenosis. TRICUSPID VALVE The tricuspid valve is normal in structure. There is mild tricuspid regurgitation. PULMONIC VALVE The pulmonary valve is normal in structure. There is no pulmonic valvular regurgitation. GREAT VESSELS The aortic root is normal in size. The IVC is normal in size and collapses >50% with inspiration. PERICARDIAL EFFUSION There is no pericardial effusion. <Conclusion> The left ventricle is normal size. There is normal left ventricular wall thickness. The left ventricular function is normal. The left ventricular ejection fraction is within the normal range. There is normal LV segmental wall motion. Transmitral Doppler flow pattern is Grade I-abnormal relaxation pattern. There is mild tricuspid regurgitation.
--- NOTE | 2018-05-27 19:12 | PN ---
Copied To: Jessica Flores MD Attending MD: Jessica Flores MD DATE: 05/27/2018 SUBJECTIVE: The patient is 62 years old, seen and examined, complained of generalized weakness, mild shortness of breath, complained of right upper quadrant pain, decreased appetite. PHYSICAL EXAMINATION: VITAL SIGNS: She is afebrile, pulse 80, respiration 18, blood pressure 108/70. LUNGS: Bilateral fair airflow. No rhonchi or crackle. HEART: S1 and S2 audible. ABDOMEN: Soft, obese, nontender. No rebound. No guarding. NEUROLOGICAL: She is awake, alert, oriented, communicative. LABORATORY EXAM: WBC 13.2, hemoglobin 9, hematocrit 29, platelets 400. Chemistry: Sodium 138, potassium 3.5, chloride 104, CO2 of 21, BUN 49, creatinine 2.3, blood sugar of 107, calcium 8.1, AST 87, alkaline phosphatase is 269. Blood culture and urine cultures are negative. She had echocardiogram done that is pending. CT scan of the abdomen and pelvis shows small abdominal and pelvic ascites and metastatic deposit in the liver and the visualized lungs. ASSESSMENT: 1. Acute renal failure, etiology unclear yet. The patient's last creatinine in 12/2017 was 0.8. 2. History of cancer of breast, had finished her course of radiation and chemotherapy. 3. Exertional dyspnea, could be secondary to anemia also. 4. History of hypertension. 5. History of anxiety and bipolar disorder. PLAN: We will continue the patient on IV fluids. I will order for CT of the chest. She is on small dose of steroids. I will continue that. Continue her on nebulizer treatment. I will follow with patient in a.m. Jessica Flores MD
[2018-05-28 01:58] LABS: CREATININE,RANDOM URINE 156 mg/dL
[2018-05-28] MEDS: Dextrose 5%/0.45% NS 1,000 ML IV SCH ×2 (04:02→19:50)
[2018-05-28 06:20] LABS: HEMOGLOBIN 9.1 g/dL (12.0-16.0); MEAN CELL VOLUME 74.7 fl (80.0-105.0); MEAN CORPUSCULAR HEMOGLOBIN 23.3 pg (25.0-35.0); MEAN CORPUSCULAR HGB CONC 31.2 g/dl (31.0-37.0); MEAN PLATELET VOLUME 9.4 fl (7.0-11.0); RBC 3.91 10^6/uL (3.5-6.1); RED CELL DISTRIBUTION WIDTH 16.2 % (11.5-14.5); WHITE BLOOD COUNT 15.3 10^3/ul (4.5-11.0)
[2018-05-28 06:30] LABS: IRON 22 ug/dL (45-180)
[2018-05-28 06:40] LABS: % IRON SATURATION 9 % (20-55); TOTAL IRON BINDING CAPACITY 238 ug/dL (265-497)
[2018-05-28 06:41] LABS: ALBUMIN 2.9 g/dL (3.0-4.8); CALCIUM 8.3 mg/dL (8.4-10.5)
[2018-05-28 06:48] LABS: T4 6.7 ug/dL (5.5-11.0)
--- NOTE | 2018-05-28 07:37 | CP.PCM.PN ---
Subjective - Date & Time of Evaluation Date of Evaluation: 05/28/18 Time of Evaluation: 06:40 - Subjective Subjective: awake, alert, no distress, breathing better Reason for consultation and follow up: cardiac evaluation of shortness of breath,History of hypertension, COPD, bipolar disorder, depression, hyperlipidemia, gout, left breast lumpectomy, breast cancer with chemotherapy . Seen and examined by me and Dr. Leon Objective - Vital Signs/Intake and Output Vital Signs (last 24 hours): Temp Pulse Resp BP Pulse Ox 98 F 72 20 127/78 99 05/28/18 06:00 05/28/18 06:00 05/28/18 06:00 05/28/18 06:00 05/28/18 06:00 Intake and Output: 05/28/18 05/28/18 06:59 18:59 Intake Total 1020 Output Total 200 Balance 820 - Medications Medications: Current Medications Benztropine Mesylate (Cogentin) 1 mg PO QPM [facility] Last Admin: 05/27/18 17:31 Dose: 1 mg Clonazepam (Klonopin) 0.5 mg PO DAILY TAZ PRN Reason: Protocol Last Admin: 05/27/18 10:28 Dose: 0.5 mg Dextrose/Sodium Chloride (Dextrose 5%/0.45% Ns 1000 Ml) 1,000 mls @ 75 mls/hr IV .[id number] [facility] Last Admin: 05/28/18 04:02 Dose: 75 mls/hr Ceftriaxone Sodium (Rocephin 1 Gram Ivpb) 1 gm in 100 mls @ 100 mls/hr IVPB DAILY TAZ PRN Reason: Protocol Last Admin: 05/27/18 11:00 Dose: 100 mls/hr Levalbuterol HCl (Xopenex) 1.25 mg IH TIDRESP TAZ Last Admin: 05/27/18 19:35 Dose: 1.25 mg Methylprednisolone (Solu-Medrol) 40 mg IVP Q12 TAZ Last Admin: 05/27/18 21:53 Dose: 40 mg Nystatin (Nystatin Oral Susp) 5 ml PO QID TAZ Last Admin: 05/27/18 21:53 Dose: 5 ml Olanzapine (Zyprexa) 20 mg PO DAILY TAZ Last Admin: 05/27/18 10:28 Dose: 20 mg Olanzapine (Zyprexa) 2.5 mg PO DAILY TAZ PRN Reason: Protocol Last Admin: 05/27/18 10:28 Dose: 2.5 mg Trazodone HCl (Desyrel) 50 mg PO DAILY [facility] Last Admin: 05/27/18 10:28 Dose: 50 mg - Labs Labs: 05/28/18 05:30 05/28/18 05:30 PT 13.3 SECONDS (9.4-12.5) H 05/26/18 10:20 INR 1.15 05/26/18 10:20 APTT 27.1 Seconds (25.1-36.5) 05/26/18 10:20 - Constitutional Appears: No Acute Distress - Eye Exam Eye Exam: Normal appearance - ENT Exam ENT Exam: Mucous Membranes Moist - Respiratory Exam Respiratory Exam: Decreased Breath Sounds, NORMAL BREATHING PATTERN - Cardiovascular Exam Cardiovascular Exam: +S1, +S2 - GI/Abdominal Exam GI & Abdominal Exam: Soft, Normal Bowel Sounds - Extremities Exam Additional comments: 2+edema - Neurological Exam Neurological Exam: Alert, Awake, Oriented x3 - Psychiatric Exam Psychiatric exam: Normal Affect - Skin Skin Exam: Intact, Warm Assessment and Plan - Assessment and Plan (Free Text) Assessment: A 62 year old female, morbidly obese, who came in to [facility] due to shortness of breath on exertion for the past several weeks. They went to [facility] initially but signed against medical advice.She follows up with Dr. Flores (PMD) History of hypertension, COPD, bipolar disorder, depression, hyperlipidemia, gout, left breast lumpectomy, breast cancer with chemotherapy . She takes Valsartan but due to recall changed to Irbesartan. Daughter claimed since then she had shortness of breath and log swelling. Also daughter claimed that they have home renovations adjacent to her room wondering if that causes her shortness of breath too. Rule out congestive heart failure. Exacerbation of COPD. started on low dose solumedrol. Work up from [facility] noted: 05/25/18- VQ Lung Scan- low probability of pulmonary embolism. 05/25/18- Venous doppler of both legs- no evidence of DVT. Large right popliteal cyst.02/17/16- Stress Test done- Normal myocardial perfusion,11/15/17- Removal of samuel cath right chest Plan: ECHO done yesterday-Normal LVEF, normal valve functions,Mild TR no pericardial effusion Denies shortness of breath Continue nebulizer treatment Started low dose Solumedrol yesterday Breathing better today Heart rate and blood pressure controlled Elevated BUN/Creatinine Continue IV fluids D5 1/2 NSS at 75 cc/hr for hydration CT of pelvis and abdomen- small abdominal and pelvic ascitis, metastatic deposits in the liver and visualized lungs CT of chest done-multiple parenchymal nodules scattered in both lungs, the largest in the right lung base measures 12mm presumable metastatic in etiology Continue current medications Continue current treatment Will follow up Plan and treatment discussed with Dr. Leon
[2018-05-28] MEDS: Levalbuterol 1.25 MG/3 ML Inhal Soln UD IH SCH ×3 (07:46→19:46)
[2018-05-28] MEDS: cefTRIAXone 1 gm 1 GM/100 ML BAG IVPB SCH (09:36)
[2018-05-28] MEDS: Nystatin 100,000 Units/ml Oral Susp 5 ml UD PO SCH ×4 (09:36→21:31)
[2018-05-28] MEDS: MethylPREDNISolone 40 mg Vial IVP SCH ×2 (09:37→21:31)
[2018-05-28 12:50] LABS: FOLATE 17.6 ng/mL
--- NOTE | 2018-05-28 18:46 | PN ---
Copied To: Jessica Flores MD Attending MD: Jessica Flores MD DATE: 05/28/2018 SUBJECTIVE: The patient is 62 years old, seen and examined, still has mild shortness of breath. Complained of generalized weakness. PHYSICAL EXAMINATION: VITAL SIGNS: She is a febrile, pulse 86, respirations 19, and blood pressure 121/77. LUNGS: Bilateral fair airflow. No rhonchi or crackle. HEART: S1 and S2 audible. ABDOMEN: Soft and nontender. No rebound. No guarding. NEUROLOGICAL: She is awake, alert, oriented, and communicative. EXTREMITIES: Bilateral legs, +1 edema. LABORATORY EXAM: WBC is 15, hemoglobin 9.1, hematocrit 29.2, and platelets 378. PT 13.3, INR 1.15. Chemistry: Sodium 137, potassium 4.4, chloride 104, CO2 of 22. BUN 50, creatinine 2.1. Iron 22, TIBC 238. AST 159, alk phos is 266. Blood cultures and urine cultures are negative. DIAGNOSTIC DATA: CT scan of the chest was done that shows multiple noncalcified parenchymal nodules in both lungs, the largest in the right lung base, 12 mm, presumably metastatic in etiology, small pleural effusion. She also has probably metastatic liver nodule. PLAN: Currently, patient is on IV fluid. She is on . I will increase the dose. Continue her on steroid. I will discuss with Dr. Mariano about further plan. She might need chemotherapy and might need port placed. We will reevaluate patient in a.m. Jessica Flores MD
[2018-05-29 07:25] LABS: HEMOGLOBIN 9.9 g/dL (12.0-16.0); MEAN CELL VOLUME 74.1 fl (80.0-105.0); MEAN CORPUSCULAR HEMOGLOBIN 23.5 pg (25.0-35.0); MEAN CORPUSCULAR HGB CONC 31.7 g/dl (31.0-37.0); MEAN PLATELET VOLUME 9.2 fl (7.0-11.0); RBC 4.21 10^6/uL (3.5-6.1); RED CELL DISTRIBUTION WIDTH 16.2 % (11.5-14.5); WHITE BLOOD COUNT 18.1 10^3/ul (4.5-11.0)
[2018-05-29 07:43] LABS: ALBUMIN 3.1 g/dL (3.0-4.8); CALCIUM 8.7 mg/dL (8.4-10.5)
--- NOTE | 2018-05-29 07:49 | CP.PCM.PN ---
Subjective - Date & Time of Evaluation Date of Evaluation: 05/29/18 Time of Evaluation: 06:30 - Subjective Subjective: no distress, awake Reason for consultation and follow up: cardiac evaluation of shortness of breath,History of hypertension, COPD, bipolar disorder, depression, hyperlipidemia, gout, left breast lumpectomy, breast cancer with chemotherapy . Seen and examined by me and Dr. Mar Objective - Vital Signs/Intake and Output Vital Signs (last 24 hours): Temp Pulse Resp BP Pulse Ox 99 F 79 21 122/67 99 05/29/18 06:00 05/29/18 06:00 05/29/18 06:00 05/29/18 06:00 05/29/18 06:00 Intake and Output: 05/29/18 05/29/18 06:59 18:59 Intake Total 1220 Output Total 1400 Balance -180 - Medications Medications: Current Medications Benztropine Mesylate (Cogentin) 1 mg PO QPM [facility] Last Admin: 05/28/18 18:01 Dose: 1 mg Clonazepam (Klonopin) 0.5 mg PO BID TAZ PRN Reason: Protocol Last Admin: 05/28/18 18:01 Dose: 0.5 mg Dextrose/Sodium Chloride (Dextrose 5%/0.45% Ns 1000 Ml) 1,000 mls @ 75 mls/hr IV .[id number] TAZ Last Admin: 05/28/18 19:50 Dose: 75 mls/hr Ceftriaxone Sodium (Rocephin 1 Gram Ivpb) 1 gm in 100 mls @ 100 mls/hr IVPB DAILY TAZ PRN Reason: Protocol Last Admin: 05/28/18 09:36 Dose: 100 mls/hr Levalbuterol HCl (Xopenex) 1.25 mg IH TIDRESP [facility] Last Admin: 05/28/18 19:46 Dose: 1.25 mg Methylprednisolone (Solu-Medrol) 40 mg IVP Q12 TAZ Last Admin: 05/28/18 21:31 Dose: 40 mg Nystatin (Nystatin Oral Susp) 5 ml PO QID TAZ Last Admin: 05/28/18 21:31 Dose: 5 ml Olanzapine (Zyprexa) 20 mg PO DAILY TAZ Last Admin: 05/28/18 09:36 Dose: 20 mg Olanzapine (Zyprexa) 2.5 mg PO DAILY TAZ PRN Reason: Protocol Last Admin: 05/28/18 10:04 Dose: Not Given Trazodone HCl (Desyrel) 50 mg PO DAILY TAZ Last Admin: 05/28/18 09:36 Dose: 50 mg - Labs Labs: 05/29/18 06:30 05/29/18 06:30 PT 13.3 SECONDS (9.4-12.5) H 05/26/18 10:20 INR 1.15 05/26/18 10:20 APTT 27.1 Seconds (25.1-36.5) 05/26/18 10:20 - Constitutional Appears: No Acute Distress - Eye Exam Eye Exam: Normal appearance - ENT Exam ENT Exam: Mucous Membranes Moist - Respiratory Exam Respiratory Exam: Decreased Breath Sounds, NORMAL BREATHING PATTERN - Cardiovascular Exam Cardiovascular Exam: +S1, +S2 - GI/Abdominal Exam GI & Abdominal Exam: Soft, Normal Bowel Sounds - Extremities Exam Additional comments: 2+edema - Neurological Exam Neurological Exam: Alert, Awake, Oriented x3 - Psychiatric Exam Psychiatric exam: Normal Affect - Skin Skin Exam: Intact, Warm Assessment and Plan - Assessment and Plan (Free Text) Assessment: A 62 year old female, morbidly obese, who came in to [facility] due to shortness of breath on exertion for the past several weeks. They went to [facility] initially but signed against medical advice.She follows up with Dr. Flores (PMD) History of hypertension, COPD, bipolar disorder, depression, hyperlipidemia, gout, left breast lumpectomy, breast cancer with chemotherapy . She takes Valsartan but due to recall changed to Irbesartan. Daughter claimed since then she had shortness of breath and log swelling. Also daughter claimed that they have home renovations adjacent to her room wondering if that causes her shortness of breath too. Rule out congestive heart failure. Exacerbation of COPD.Acute renal failure, started on low dose solumedrol. ECHO done -Normal LVEF, normal valve functions,Mild TR, no pericardial effusion 05/26/18 CT of pelvis and abdomen- small abdominal and pelvic ascitis, metastatic deposits in the liver and visualized lungs 05/27/18 CT of chest done-multiple parenchymal nodules scattered in both lungs, the largest in the right lung base measures 12mm presumable metastatic in etiology Work up from [facility] noted: 05/25/18- VQ Lung Scan- low probability of pulmonary embolism. 05/25/18- Venous doppler of both legs- no evidence of DVT. Large right popliteal cyst.02/17/16- Stress Test done- Normal myocardial perfusion,11/15/17- Removal of samuel cath right chest Plan: Feels better, breathing better Heart rate and blood pressure controlled Will discontinue telemetry Continue IV fluids D5 1/2 NSS at 75 cc/hr for hydration Elevated BUN/Creatinine, Renal on consult. Continue current medications Continue current treatment Will follow up Plan and treatment discussed with Dr. Mar
[2018-05-29] MEDS: Levalbuterol 1.25 MG/3 ML Inhal Soln UD IH SCH ×2 (07:52→21:58)
[2018-05-29] MEDS: Nystatin 100,000 Units/ml Oral Susp 5 ml UD PO SCH ×4 (09:04→22:23)
[2018-05-29] MEDS: cefTRIAXone 1 gm 1 GM/100 ML BAG IVPB SCH (09:04)
[2018-05-29] MEDS: MethylPREDNISolone 40 mg Vial IVP SCH ×2 (09:05→22:23)
[2018-05-29] MEDS: Dextrose 5%/0.45% NS 1,000 ML IV SCH (10:55)
[2018-05-29] MEDS: Enoxaparin 30 mg Syringe SC SCH (12:22)
--- NOTE | 2018-05-29 13:26 | CP.PCM.CON ---
History of Present Illness - History of Present Illness History of Present Illness: Podiatry Consult Note - Dr. Gabriel 62 year old female PMHx hypertension, COPD, bipolar disorder, depression, hyperlipidemia, gout, left breast lumpectomy, breast cancer with chemotherapy seen and examined at bedside for painful elongated fungal nails and right leg pain. Family members present at bedside. Patient states right 3rd nail causes pain with ambulation and is not able to trim nails herself. Patient also complains of pain in the back of right leg which started yesterday. Per family, patient mostly bed bound. No other lower extremity complaints. Review of Systems - Review of Systems All systems: reviewed and no additional remarkable complaints except (as per HPI ) Past Patient History - Infectious Disease Hx of Infectious Diseases: None - Past Social History Smoking Status: Never Smoked - CARDIAC Hx Hypertension: Yes - PULMONARY Hx Chronic Obstructive Pulmonary Disease (COPD): Yes - NEUROLOGICAL Hx Paralysis: No - HEENT Hx HEENT Problems: No - RENAL Hx Chronic Kidney Disease: Yes Other/Comment: arf abnormal labs recently dx [facility] - ENDOCRINE/METABOLIC Hx Endocrine Disorders: No - HEMATOLOGICAL/ONCOLOGICAL Hx Blood Transfusions: No Hx Blood Transfusion Reaction: No - INTEGUMENTARY Hx Dermatological Problems: Yes Other/Comment: rcw scar from pac removal 11/15/2017, left breast scar, thick hard toenails, hx r ft cellulitis - MUSCULOSKELETAL/RHEUMATOLOGICAL Hx Musculoskeletal Disorders: Yes - GASTROINTESTINAL Hx Gastrointestinal Disorders: Yes (obese) - GENITOURINARY/GYNECOLOGICAL Hx Reproductive Disorders: No - PSYCHIATRIC Hx Bipolar Disorder: Yes Hx Depression: Yes Hx Substance Use: No - SURGICAL HISTORY Other/Comment: L lumpectomy last chemo 2016 - ANESTHESIA Hx Anesthesia Reactions: No Hx Malignant Hyperthermia: No Meds Allergies/Adverse Reactions: Allergies Allergy/AdvReac Type Severity Reaction Status Date / Time potassium AdvReac Intermediate "FUNNY Verified 11/10/17 12:17 FEELING" - Medications Medications: Current Medications Benztropine Mesylate (Cogentin) 1 mg PO QPM [facility] Last Admin: 05/28/18 18:01 Dose: 1 mg Clonazepam (Klonopin) 0.5 mg PO BID TAZ PRN Reason: Protocol Last Admin: 05/29/18 09:05 Dose: 0.5 mg Enoxaparin Sodium (Lovenox) 30 mg SC DAILY [facility] PRN Reason: Protocol Last Admin: 05/29/18 12:22 Dose: 30 mg Dextrose/Sodium Chloride (Dextrose 5%/0.45% Ns 1000 Ml) 1,000 mls @ 75 mls/hr IV .[id number] [facility] Last Admin: 05/29/18 10:55 Dose: 75 mls/hr Ceftriaxone Sodium (Rocephin 1 Gram Ivpb) 1 gm in 100 mls @ 100 mls/hr IVPB DAILY [facility] PRN Reason: Protocol Stop: 05/30/18 10:59 Last Admin: 05/29/18 09:04 Dose: 100 mls/hr Levalbuterol HCl (Xopenex) 1.25 mg IH TIDRESP [facility] Last Admin: 05/29/18 07:52 Dose: 1.25 mg Methylprednisolone (Solu-Medrol) 30 mg IVP Q12 [facility] Nystatin (Nystatin Oral Susp) 5 ml PO QID [facility] Last Admin: 05/29/18 09:04 Dose: 5 ml Olanzapine (Zyprexa) 20 mg PO DAILY [facility] Last Admin: 05/29/18 09:05 Dose: 20 mg Olanzapine (Zyprexa) 2.5 mg PO DAILY [facility] PRN Reason: Protocol Last Admin: 05/29/18 09:06 Dose: Not Given Ondansetron HCl (Zofran Inj) 4 mg IVP Q6H PRN PRN Reason: Nausea/Vomiting Last Admin: 05/29/18 12:19 Dose: 4 mg Trazodone HCl (Desyrel) 50 mg PO DAILY [facility] Last Admin: 05/29/18 09:05 Dose: 50 mg Physical Exam - Constitutional Appears: Well, Non-toxic, No Acute Distress - Extremities Exam Additional comments: VASC: DP and PT pulses weakly palpable 1/4 b/l. CFT <3 seconds to all digits b/ l. Temperature gradient warm to warm. Nonpitting edema noted to bilateral LE. NEURO: Gross sensation intact bilaterally. DERM: Nail 3 b/l thickened, elongated, dystrophic, and black in color. Nails 1,2 ,4,5 b/l elongated and normotrophic. No erythema noted to bilateral LE. No open lesions noted. ORTHO: Mild pain upon calf squeeze RLE. No pain on palpation in feet b/l. No pain on palpation to nail 3 b/l. - Neurological Exam Neurological exam: Alert, Oriented x3 - Psychiatric Exam Psychiatric exam: Normal Affect, Normal Mood Results - Vital Signs Recent Vital Signs: Last Vital Signs Temp 99 F 05/29/18 06:00 Pulse 79 05/29/18 06:00 Resp 21 05/29/18 06:00 BP 122/67 05/29/18 06:00 Pulse Ox 99 05/29/18 06:00 - Labs Result Diagrams: 05/29/18 06:30 05/29/18 06:30 Labs: Laboratory Results - last 24 hr 05/28/18 05/29/18 05/29/18 05:30 06:30 06:30 WBC 18.1 H RBC 4.21 Hgb 9.9 L Hct 31.2 L MCV 74.1 L MCH 23.5 L MCHC 31.7 RDW 16.2 H Plt Count 365 MPV 9.2 Sodium 137 Potassium 4.5 Chloride 104 Carbon Dioxide 18 L Anion Gap 19 BUN 56 H Creatinine 2.2 H Est GFR ( Amer) 27 Est GFR (Non-Af Amer) 23 Random Glucose 151 H Calcium 8.7 Ferritin 1310.0 Total Bilirubin 0.6 AST 147 H ALT 29 Alkaline Phosphatase 273 H Total Protein 6.1 Albumin 3.1 Globulin 3.0 Albumin/Globulin Ratio 1.0 L Assessment & Plan - Assessment and Plan (Free Text) Assessment: 62F with 1) onychomycosis, 2) right leg pain r/o DVT Plan: Patient seen and evaluated alongside attending, Dr. Gabriel Nails 1-5 b/l debrided in thickness and length w/o incident Discussed with son treatment options for onychomycosis - oral vs. topical antifungal medications. Family refusing antifungal treatment at this time. Bilateral venous duplex ordered r/o DVT Multipodus boots ordered - to be worn at all times in bed Podiatry will follow
[2018-05-29] MEDS ORDERED: Lidocaine PF 2% (5 ml) Inj (For Cardiac Arrhy) ONE ×2 (15:38→15:42)
[2018-05-29] MEDS ORDERED: Iodixanol 320 MG/ML 100 ML BOTTLE IV ONE (15:38)
[2018-05-29] MEDS ORDERED: Midazolam 2 MG/2 ML VIAL ONE (16:00)
--- NOTE | 2018-05-29 16:37 | PN ---
Copied To: Genaro Goldman MD Attending MD: Genaro Goldman MD DATE: 05/29/2018 SUBJECTIVE: The patient is currently seen having her toenails clipped. She appears to be mildly short of breath. She remains on IV fluid hydration. She has had a drop in her creatinine down to 2.2. Her BUN has remained elevated at 56. Of note, her abdominal and chest CT scans are positive for metastatic cancer to the lung and to the liver. The patient does have a past history of breast cancer. MEDICATIONS: List reviewed. The patient is currently on Cogentin, Desyrel, D5 half-normal saline 75 an hour which will be discontinued, Klonopin, Lovenox, nystatin, Rocephin, Solu-Medrol, Xopenex, Zofran, and Zyprexa. PHYSICAL EXAMINATION: INTAKE AND OUTPUT: Intake is 1220, output is 1400. Weight today is 259 pounds 6 ounces. VITAL SIGNS: Blood pressure is 122/67, heart rate is 79, temperature is 99, respiratory rate is 21 with an oxygen saturation of 99%. HEENT: Shows her to be normocephalic, atraumatic. Conjunctiva are pale. Sclerae are nonicteric. NECK: Supple. No neck vein distention. CHEST: Clear to auscultation and percussion. No audible rales, rhonchi, or wheezing. Right chest wall scar, an area of a previous port. CARDIOVASCULAR: Shows a regular rate and rhythm without audible murmurs, rubs, or gallops. She does have tricuspid regurgitation on echocardiogram. ABDOMEN: Obese. Soft. Bowel sounds normal. No rebound, guarding, or masses. EXTREMITIES: Show puffy legs with trace pitting edema. No cyanosis or clubbing. Distal lower extremity pulses secondary to puffy legs. LABORATORY DATA AND IMAGING: CBC today: White blood cell count 18.1, up from 15.2 and 13.2, the patient is on steroids. Hemoglobin 9.9 with a platelet count of 365,000. Chemistry showed normal electrolytes with the exception of a CO2 of 18. BUN is up from 48 to 56 on steroids. Creatinine is down from 2.9 to 2.2 with hydration. Glucose 151. Calcium 8.7. Last phosphorus 4.9 with a magnesium level of 2.5. Iron saturations are low at 9%. Mild elevation of her liver enzymes. Albumin is 3.1. Urine showed a fractional secretion of sodium of less than 1% and negative urine Saran stain. Abdominal CT scan showed normal kidneys. Positive metastatic disease to the liver. Chest CT scan showed metastatic disease to the lung. Microbiology: All cultures are negative at 3 days. Urine cultures are negative. ASSESSMENT: 1. Acute renal failure in a patient with no past history of chronic kidney disease. With mild IV fluid hydration, she has had a fall in creatinine. However, she has had a rise in BUN secondary to the initiation of steroids. She does have renal hypoperfusion as evidenced by low fractional secretion of sodium. No obstructive uropathy. No interstitial nephritis. Agree with decision to continue to hold her angiotensin-receptor wade therapy. 2. Hypertension. Blood pressure is controlled on present medication. Presently, she is receiving no blood pressure medications and systolic and diastolic readings are in the normal range. 3. History of hyperlipidemia. The patient will continue diet therapy. 4. History of gout. Uric acid levels are normal. No complaints of gout and the patient presently remains off Uloric therapy. 5. Increasing shortness of breath with metastatic disease to the lung. Echocardiogram was done which showed an ejection fraction of 82%. She has a normal left ventricular wall thickness and size and function and just [id number] tricuspid regurgitation. 6. History of breast cancer. She is status post chemotherapy and radiation therapy. CT scan of the chest and abdomen shows metastatic disease, perhaps secondary to breast cancer. Awaiting oncology evaluation. 7. History of anemia. Hemoglobin is low. Iron saturations are low at 9%. B12 level was normal. Folic acid level is normal. PLAN: 1. In light of the patient's increased shortness of breath, I will discontinue IV fluid hydration. Oral fluid intake appears to be adequate. Perhaps increasing shortness of breath is secondary to metastatic disease to the lung. The patient did have evidence for renal hypoperfusion, so I will ask her to try and maintain an adequate oral fluid intake. 2. Duration of antibiotic therapy, there does not appear to be an infection. 3. Bipolar disorder. The patient will continue receiving current medications. She is not on lithium. 4. For history of hypertension, she remains normotensive. Presently, blood pressure medications are not necessary. 5. Continue to monitor labs on a regular basis. I do not expect her BUN to fall with continued use of steroid therapy. 6. We will supplement iron with IV Venofer in light of her saturation of 9%. I will hold erythropoietin therapy in light of her stage IV malignancy. Genaro Goldman MD
[2018-05-29] MEDS ORDERED: Sodium Chloride 0.45% 1,000 ML IV SCH (16:45)
--- NOTE | 2018-05-29 17:33 | PN ---
Copied To: Jessica Flores MD Attending MD: Jessica Flores MD DATE: 05/29/2018 SUBJECTIVE: The patient is 62 years old, seen and examined, complains of shortness of breath, complains of cough. No nausea or vomiting. No diarrhea. Poor appetite. PHYSICAL EXAMINATION: VITAL SIGNS: She is afebrile, pulse 79, respirations 21, blood pressure 122/67. LUNGS: Bilateral occasional expiratory rhonchi. HEART: S1 and S2, audible. ABDOMEN: Soft, obese, nontender. No rebound. No guarding. NEUROLOGICAL: Patient is awake, alert, oriented, communicative. LABORATORY DYLAN: WBC is 18.1, hemoglobin 9.9, hematocrit 31.2, platelets 365. Chemistry: Sodium 137, potassium 4.5, chloride 104, CO2 18, BUN 56, creatinine 2.2, blood sugar 151, iron 22, AST 147, ALT is 29, alkaline phosphatase is 273. CT scan of the chest shows multiple nodule noncalcified, scattered in both lungs, largest in the right lung base, measuring 12 mm, presumably metastatic etiology and she also has liver nodule. ASSESSMENT: 1. Exertional dyspnea. 2. Probable metastatic breast cancer. 3. Hypertension. 4. Gout. 5. History of bipolar disorder. PLAN: Currently, we will continue the patient with IV antibiotic and IV fluid. We will cut down her steroid to 30 mL every 12 hours, continue nebulizer treatment. Patient has poor IV access. We will request for Port-A-Cath by Dr. Dave Pino. Discussed with the patient's son and daughter. We will continue to hydrate her. I will request for pulmonary evaluation by Dr. German. Also, get MRI of the brain. Start her on DVT prophylaxis. Encourage ambulation, out of bed to chair. Jessica Flores MD
--- NOTE | 2018-05-29 18:19 | VASCULAR ---
PROCEDURE: Ultrasound and fluoroscopic right internal jugular venous access port. CLINICAL HISTORY: Metastatic breast carcinoma.Venous port for chemotherapy. PHYSICIAN(S): Dave Pino M.D. TECHNIQUE: The relative risks and indications of the procedure were explained to the patient and consent obtained. The patient was placed supine on the arteriogram table and the right neck and chest prepped and draped in the usual sterile fashion. Conscious sedation monitoring was provided throughout the procedure by a nurse. Antibiotics were given prior to the procedure. Under direct ultrasound guidance, the right internal jugular vein was punctured with a micro-puncture set. A 0.035 angled Glidewire was advanced into the IVC. A 4 cm incision was made below the right clavicle and the pocket blunted dissected. A 8 Setswana single-lumen catheter, 20 cm long, was advanced to the SVC/RA junction. The catheter was trimmed and attached to the port. The port aspirates and injects easily. The port was placed in the pocket and closed in 2 layers. The patient tolerated the procedure well. IMPRESSION: Ultrasound and fluoroscopically placed right internal jugular venous access port.
--- NOTE | 2018-05-30 02:42 | CON ---
Copied To: Dee German MD Attending MD: Dee German MD DATE: 05/29/2018 PULMONARY CONSULT REFERRING PHYSICIAN: Jessica Flores MD REASON FOR CONSULT: Shortness of breath, lung nodule. HISTORY OF PRESENT ILLNESS: This is a 62-year-old female with chronic obstructive lung disease; hypertension; bipolar disorder; hyperlipidemia; history of gout; history of left breast lumpectomy, found to have cancer, treated with chemo last year; comes in with shortness of breath; had a CT of the chest done, which shows multiple lung nodule, also shows liver lesions. She is Dr. Mariano's patient. Family admits she had loud snoring, daytime sleepy and tired, status post right-sided [id number]-[id number] today. No hemoptysis. No hematemesis. No hematuria. No diarrhea reported. PAST MEDICAL HISTORY: Chronic lung disease, hypertension, bipolar disorder, hyperlipidemia, gout, history of breast cancer treated with chemotherapy last year. SOCIAL HISTORY: Never smoked. No history of alcohol abuse. ALLERGIES: ALLERGY TO POTASSIUM. MEDICATIONS: She is on Cogentin 1 mg; trazodone 50 mg daily; iron sucrose 200 mg Tuesday, Tuesday and Tuesday; Clonazepam 0.5 mg twice a day; Lovenox 30 mg subcu daily; Nystatin 5 mL four times a day; Rocephin 1 g IV daily; IV fluid half-normal saline 50 mL/hour. REVIEW OF SYSTEMS: No headache, no rhinitis. Gets short of breath, some cough. Admits to have loud snoring, daytime sleepy and tired. No chest pain, has some discomfort on the Port-A-Cath area. No nausea, no vomiting, no diarrhea. No leg pain or leg swelling. PHYSICAL EXAMINATION: GENERAL: No acute distress. VITAL SIGNS: Temperature is 98, heart rate is 75, respiratory rate is 18, blood pressure 112/73, pulse ox 98% on nasal cannula. HEENT: Moist mucous membrane. Crowded airway. Mallampati score is IV. NECK: Short thick neck. LUNGS: Have a scattered rhonchi, a few crackles. HEART: S1 and S2. ABDOMEN: Soft, nontender. No organomegaly. EXTREMITIES: No edema. NEUROLOGICAL: Awake and alert. Does follow simple commands. LABORATORY DATA: Shows hemoglobin 9.9, hematocrit 31.2, WBC 18,000, platelet count is 365. INR 1.15. PTT 27. Sodium 137, potassium 4.5, chloride 104, bicarbonate 18, BUN 56, creatinine 2.2, glucose 151, calcium 8.7, AST 147, ALT 29, alk phos is 273. Albumin is 3.1. TSH 0.27. Thyroxine 6.7. Microbiology: Blood culture, urine culture, throat culture are unremarkable. CAT scan of the chest shows bilateral pulmonary nodules, the largest one is at right lung base, which is 12 mm, also small right pleural effusion, cannot predict lymphadenopathy because of noncontrast study; also has a CT of the abdomen and pelvis done on 05/26/2018, which shows metastatic deposits in the liver and visualized lung segments, small abdominal and pelvic ascites. IMPRESSION AND PLAN: CT of the chest and abdomen consistent with probably metastatic disease, the patient has known breast cancer, most likely that is the primary. Other issues are hypertension, gout, bipolar disorder, chronic lung disease, may have sleep apnea syndrome, renal failure. We will add inhaled bronchodilator for pulmonary toilet. Keep head 45 degrees. We will try CPAP 7 cm, 35% oxygen while sleeping. Gastric prophylaxis, deep vein thrombosis prophylaxis. Agree with Dr. Flores to the MRI of the brain to assure there is no metastasis to the brain. I believe, we do not need biopsy, but if Oncology looking for tissue biopsy to assure the primary, liver probably is the source to get it. Thank you and we will follow with you. Dee German MD
[2018-05-30 06:46] LABS: HEMOGLOBIN 9.6 g/dL (12.0-16.0); MEAN CELL VOLUME 75.1 fl (80.0-105.0); MEAN CORPUSCULAR HGB CONC 30.6 g/dl (31.0-37.0); MEAN PLATELET VOLUME 9.1 fl (7.0-11.0); RBC 4.18 10^6/uL (3.5-6.1); RED CELL DISTRIBUTION WIDTH 16.4 % (11.5-14.5); WHITE BLOOD COUNT 20.3 10^3/ul (4.5-11.0)
[2018-05-30 06:53] LABS: ALB/GLOB RATIO 1.1 (1.1-1.8); CALCIUM 8.4 mg/dL (8.4-10.5)
--- NOTE | 2018-05-30 07:04 | CP.PCM.PN ---
Subjective - Date & Time of Evaluation Date of Evaluation: 05/30/18 Time of Evaluation: 06:30 - Subjective Subjective: no distress, awake,lying in bed Reason for consultation and follow up: cardiac evaluation of shortness of breath,History of hypertension, COPD, bipolar disorder, depression, hyperlipidemia, gout, left breast lumpectomy, breast cancer with chemotherapy . Seen and examined by me and Dr. Mar Objective - Vital Signs/Intake and Output Vital Signs (last 24 hours): Temp Pulse Resp BP Pulse Ox 98 F 75 18 112/73 98 05/29/18 18:00 05/29/18 22:15 05/29/18 18:00 05/29/18 18:00 05/29/18 18:00 - Medications Medications: Current Medications Acetaminophen (Tylenol 325mg Tab) 650 mg PO Q4 PRN PRN Reason: Pain, Mild (1-3) Arformoterol Tartrate (Brovana) 15 mcg IH [id number] [facility] Benztropine Mesylate (Cogentin) 1 mg PO QPM [facility] Last Admin: 05/29/18 18:40 Dose: Not Given Budesonide (Pulmicort Respules) 0.5 mg IH [id number] [facility] Clonazepam (Klonopin) 0.5 mg PO BID [facility] PRN Reason: Protocol Last Admin: 05/29/18 18:40 Dose: Not Given Enoxaparin Sodium (Lovenox) 30 mg SC DAILY [facility] PRN Reason: Protocol Last Admin: 05/29/18 12:22 Dose: 30 mg Ceftriaxone Sodium (Rocephin 1 Gram Ivpb) 1 gm in 100 mls @ 100 mls/hr IVPB DAILY [facility] PRN Reason: Protocol Stop: 05/30/18 10:59 Last Admin: 05/29/18 09:04 Dose: 100 mls/hr Iron Sucrose 200 mg/ Sodium (Chloride) 110 mls @ 110 mls/hr IVPB MWF [facility] Stop: 06/07/18 10:59 Last Admin: 05/29/18 18:38 Dose: 110 mls/hr Levalbuterol HCl (Xopenex) 1.25 mg IH TIDRESP [facility] Last Admin: 05/29/18 21:58 Dose: 1.25 mg Methylprednisolone (Solu-Medrol) 30 mg IVP Q12 [facility] Last Admin: 05/29/18 22:23 Dose: 30 mg Nystatin (Nystatin Oral Susp) 5 ml PO QID [facility] Last Admin: 05/29/18 22:23 Dose: 5 ml Olanzapine (Zyprexa) 20 mg PO DAILY [facility] Last Admin: 05/29/18 09:05 Dose: 20 mg Olanzapine (Zyprexa) 2.5 mg PO DAILY [facility] PRN Reason: Protocol Last Admin: 05/29/18 09:06 Dose: Not Given Ondansetron HCl (Zofran Inj) 4 mg IVP Q6H PRN PRN Reason: Nausea/Vomiting Last Admin: 05/29/18 12:19 Dose: 4 mg Trazodone HCl (Desyrel) 50 mg PO DAILY [facility] Last Admin: 05/29/18 09:05 Dose: 50 mg - Labs Labs: 05/29/18 06:30 05/30/18 06:00 PT 13.3 SECONDS (9.4-12.5) H 05/26/18 10:20 INR 1.15 05/26/18 10:20 APTT 27.1 Seconds (25.1-36.5) 05/26/18 10:20 - Constitutional Appears: No Acute Distress - Eye Exam Eye Exam: Normal appearance - ENT Exam ENT Exam: Mucous Membranes Moist - Respiratory Exam Respiratory Exam: Decreased Breath Sounds, Clear to Ausculation Bilateral, NORMAL BREATHING PATTERN - Cardiovascular Exam Cardiovascular Exam: +S1, +S2 Additional comments: right chest port dressing intact/no bleeding - GI/Abdominal Exam GI & Abdominal Exam: Soft, Normal Bowel Sounds - Extremities Exam Extremities Exam: Normal Capillary Refill Additional comments: 2+edema - Neurological Exam Neurological Exam: Alert, Awake, Oriented x3 - Psychiatric Exam Psychiatric exam: Normal Affect - Skin Skin Exam: Intact, Warm Assessment and Plan - Assessment and Plan (Free Text) Assessment: A 62 year old female, morbidly obese, who came in to [facility] ER due to shortness of breath on exertion for the past several weeks. They went to [facility] initially but signed against medical advice.She follows up with Dr. Flores (PMD) History of hypertension, COPD, bipolar disorder, depression, hyperlipidemia, gout, left breast lumpectomy, breast cancer with chemotherapy . She takes Valsartan but due to recall changed to Irbesartan. Daughter claimed since then she had shortness of breath and log swelling. Also daughter claimed that they have home renovations adjacent to her room wondering if that causes her shortness of breath too. Rule out congestive heart failure. Exacerbation of COPD.Acute renal failure, started on low dose solumedrol. ECHO done -Normal LVEF, normal valve functions,Mild TR, no pericardial effusion. 05/26/18 CT of pelvis and abdomen- small abdominal and pelvic ascitis, metastatic deposits in the liver and visualized lungs 05/27/18 CT of chest done-multiple parenchymal nodules scattered in both lungs, the largest in the right lung base measures 12mm presumable metastatic in etiology Work up from [facility] noted: 05/25/18- VQ Lung Scan- low probability of pulmonary embolism. 05/25/18- Venous doppler of both legs- no evidence of DVT. Large right popliteal cyst.02/17/16- Stress Test done- Normal myocardial perfusion,11/15/17- Removal of samuel cath right chest Plan: Post insertion of venous port on right chest for chemotherapy Site no bleeding,no hematoma No distress,feels better Cardiac status stable Heart rate and blood pressure controlled Renal on consult. Pulmonary on consult Oncology on consult US of lower extremity pending result Continue current medications Continue current treatment Will follow up Plan and treatment discussed with Dr. Mar
[2018-05-30] MEDS: Arformoterol 15 mcg/2 ml Inh Sol IH SCH ×2 (08:01→20:05)
[2018-05-30] MEDS: Levalbuterol 1.25 MG/3 ML Inhal Soln UD IH SCH ×3 (08:02→20:05)
[2018-05-30] MEDS: Budesonide 0.5 mg/2 ml Inhal Susp UD IH SCH ×2 (08:02→20:05)
--- NOTE | 2018-05-30 10:19 | MRI ---
Date of service: 05/30/2018 PROCEDURE: MRI BRAIN WITHOUT CONTRAST HISTORY: r/o metastatic disease COMPARISON: 09/28/2016 MRI TECHNIQUE: Multiplanar, multisequence MR images of the brain were obtained without intravenous contrast enhancement. FINDINGS: HEMORRHAGE: None DWI: No evidence of an acute or early subacute infarction. BRAIN PARENCHYMA: No mass effect or edema. No atrophy or chronic microvascular ischemic changes. VENTRICLES: Unremarkable. No hydrocephalus. CRANIUM: Unremarkable. ORBITS: Grossly unremarkable. PARANASAL SINUSES/MASTOIDS: Clear VASCULAR SYSTEM: Skull base flow voids intact. OTHER FINDINGS: There is a partially empty sella which is a normal variation IMPRESSION: Unremarkable non contrast enhanced MRI of the brain.
[2018-05-30] MEDS: Enoxaparin 30 mg Syringe SC SCH (11:05)
[2018-05-30] MEDS: Nystatin 100,000 Units/ml Oral Susp 5 ml UD PO SCH ×4 (11:06→21:36)
[2018-05-30] MEDS: MethylPREDNISolone 40 mg Vial IVP SCH ×2 (11:06→21:36)
[2018-05-30] MEDS: cefTRIAXone 1 gm 1 GM/100 ML BAG IVPB SCH (11:07)
--- NOTE | 2018-05-30 16:33 | PN ---
Copied To: Isaac Cross DPM Attending MD: Isaac Cross DPM DATE: 05/30/2018 SUBJECTIVE: A 62-year-old female, seen at bedside for a followup evaluation and management of bilateral lower leg pain. The patient states that the pain has subsided and went for her venous Dopplers yesterday. Results are still pending. The patient's vital signs revealed temperature of 97.7, pulse rate of 78, blood pressure of 116/73, respiratory rate of 20. Laboratory findings reveal white count of 20.3, hemoglobin of 9.6, hematocrit of 31.4, platelet count of 323. All medications are noted in the MAR. OBJECTIVE: Weakly palpable pedal pulses noted bilaterally. There is noted to be bilateral lower extremity edema, which is nonpitting. There is no pain upon palpation of the gastroc-soleus complex of either foot. There is no pain upon palpation anywhere on both of her feet. There is noted to be no open lesions. There is no increased temperature gradient to suggest lower extremity cellulitis. ASSESSMENT: A 62-year-old female with resolving right lower leg pain. Venous Doppler has been taken, but results are pending. PLAN: The patient was seen and evaluated. We are waiting venous Doppler results to rule out deep venous thrombosis. We will continue with the Multi Podus boots, which will be worn at all times while in bed to prevent heel breakdown. Isaac Cross DPM
--- NOTE | 2018-05-30 17:28 | CP.PCM.CON ---
History of Present Illness - History of Present Illness History of Present Illness: Covering Dr. Mariano 62 year old female with a history of HTN, HL, bipolar disorder, COPD, triple negative breast cancer s/p surgery, adjuvant chemotherapy/radiation 2016, admitted with shortness of breath, found to have radiographic evidence of metastatic disease. She reports to increasing dyspnea with exertion for about 3 weeks time. She has also had RUQ pain for the past 1 week. She denies loss of appetite and has not lost weight. She denies fevers and chills. Past medical history: breast cancer Past surgical history: left breast lumpectomy, portacath Family history: Mother had pancreatic cancer Social history: Denies tobacco, alcohol, and illicit drug use. Allergies: Potassium Review of systems: All remaining review of systems including HEENT, cardiovascular, respiratory, gastrointestinal, genitourinary, musculoskeletal, dermatologic, neurologic, and psychiatric are negative unless mentioned in the HPI. Past Patient History - Infectious Disease Hx of Infectious Diseases: None - Past Social History Smoking Status: Never Smoked - CARDIAC Hx Hypertension: Yes - PULMONARY Hx Chronic Obstructive Pulmonary Disease (COPD): Yes - NEUROLOGICAL Hx Paralysis: No - HEENT Hx HEENT Problems: No - RENAL Hx Chronic Kidney Disease: Yes Other/Comment: arf abnormal labs [place] [facility] [place] ENDOCRINE/METABOLIC Hx Endocrine Disorders: No - HEMATOLOGICAL/ONCOLOGICAL Hx Blood Transfusions: No Hx Blood Transfusion Reaction: No - INTEGUMENTARY Hx Dermatological Problems: Yes Other/Comment: rcw scar from pac removal 11/15/2017, left breast scar, thick hard toenails, hx r ft cellulitis - MUSCULOSKELETAL/RHEUMATOLOGICAL Hx Musculoskeletal Disorders: Yes - GASTROINTESTINAL Hx Gastrointestinal Disorders: Yes (obese) - GENITOURINARY/GYNECOLOGICAL Hx Reproductive Disorders: No - PSYCHIATRIC Hx Bipolar Disorder: Yes Hx Depression: Yes Hx Substance Use: No - SURGICAL HISTORY Other/Comment: L lumpectomy last chemo 2016 - ANESTHESIA Hx Anesthesia Reactions: No Hx Malignant Hyperthermia: No Meds Allergies/Adverse Reactions: Allergies Allergy/AdvReac Type Severity Reaction Status Date / Time potassium AdvReac Intermediate "FUNNY Verified 11/10/17 12:17 FEELING" - Medications Medications: Current Medications Acetaminophen (Tylenol 325mg Tab) 650 mg PO Q4 PRN PRN Reason: Pain, Mild (1-3) Arformoterol Tartrate (Brovana) 15 mcg IH [id number] Last Admin: 05/30/18 08:01 Dose: 15 mcg Benztropine Mesylate (Cogentin) 1 mg PO QPM [facility] Last Admin: 05/29/18 18:40 Dose: Not Given Budesonide (Pulmicort Respules) 0.5 mg IH [id number] [facility] Last Admin: 05/30/18 08:02 Dose: 0.5 mg Clonazepam (Klonopin) 0.5 mg PO BID [facility] PRN Reason: Protocol Last Admin: 05/30/18 11:05 Dose: 0.5 mg Enoxaparin Sodium (Lovenox) 30 mg SC DAILY [facility] PRN Reason: Protocol Last Admin: 05/30/18 11:05 Dose: 30 mg Iron Sucrose 200 mg/ Sodium (Chloride) 110 mls @ 110 mls/hr IVPB MWF [facility] Stop: 06/07/18 10:59 Last Admin: 05/29/18 18:38 Dose: 110 mls/hr Levalbuterol HCl (Xopenex) 1.25 mg IH TIDRESP [facility] Last Admin: 05/30/18 13:50 Dose: 1.25 mg Methylprednisolone (Solu-Medrol) 30 mg IVP Q12 [facility] Last Admin: 05/30/18 11:06 Dose: 30 mg Nystatin (Nystatin Oral Susp) 5 ml PO QID [facility] Last Admin: 05/30/18 14:53 Dose: 5 ml Olanzapine (Zyprexa) 20 mg PO DAILY [facility] Last Admin: 05/30/18 11:05 Dose: 20 mg Olanzapine (Zyprexa) 2.5 mg PO DAILY [facility] PRN Reason: Protocol Last Admin: 05/30/18 11:06 Dose: Not Given Ondansetron HCl (Zofran Inj) 4 mg IVP Q6H PRN PRN Reason: Nausea/Vomiting Last Admin: 05/29/18 12:19 Dose: 4 mg Trazodone HCl (Desyrel) 50 mg PO DAILY [facility] Last Admin: 05/30/18 11:05 Dose: 50 mg Physical Exam - Head Exam Head Exam: ATRAUMATIC - Eye Exam Eye Exam: Normal appearance - ENT Exam ENT Exam: Mucous Membranes Dry - Respiratory Exam Respiratory Exam: NORMAL BREATHING PATTERN - Cardiovascular Exam Cardiovascular Exam: +S1, +S2 - GI/Abdominal Exam GI & Abdominal Exam: Normal Bowel Sounds - Psychiatric Exam Psychiatric exam: Normal Affect, Normal Mood - Skin Skin Exam: Warm Results - Vital Signs Recent Vital Signs: Last Vital Signs Temp 97.8 F 05/30/18 16:49 Pulse 42 L 05/30/18 16:49 Resp 20 05/30/18 16:49 BP 140/55 L 05/30/18 16:49 Pulse Ox 98 05/30/18 16:49 - Labs Result Diagrams: 05/30/18 06:00 05/30/18 06:00 Labs: Laboratory Results - last 24 hr 05/30/18 05/30/18 05/30/18 06:00 06:00 06:00 WBC 20.3 H RBC 4.18 Hgb 9.6 L Hct 31.4 L MCV 75.1 L MCH 23.0 L MCHC 30.6 L RDW 16.4 H Plt Count 323 MPV 9.1 Sodium 136 Potassium 5.1 H Chloride 104 Carbon Dioxide 19 L Anion Gap 18 BUN 71 H Creatinine 2.7 H Est GFR ( Amer) 22 Est GFR (Non-Af Amer) 18 Random Glucose 117 H Calcium 8.4 Phosphorus 5.5 H Magnesium 2.6 H Total Bilirubin 0.6 AST 137 H ALT 28 Alkaline Phosphatase 275 H NT-Pro-B Natriuret Pep 565 H Total Protein 5.7 L Albumin 3.0 Globulin 2.7 Albumin/Globulin Ratio 1.1 Procalcitonin 3.31 H Assessment & Plan (1) Metastatic disease Assessment and Plan: likely recurrent and metastatic breast cancer to the lung and liver agree with percutaneous biopsy; repeat ER/NH/HER2 testing if confirmed breast cancer outpatient f/u with Dr. Mariano for treatment Status: Acute (2) Leukocytosis Assessment and Plan: on steroids reactive Status: Acute (3) Anemia Assessment and Plan: anemia of chronic disease rule out hemoglobinopathy trait Thank you for this interesting consult. Status: Acute
--- NOTE | 2018-05-30 17:37 | US ---
HISTORY: Leg pain and swelling. Evaluate for DVT PHYSICIAN(S): Dave Pino MD. TECHNIQUE: Duplex sonography and color-flow Doppler with graded compression were used to evaluate the deep venous systems of both lower extremities. FINDINGS: The visualized deep venous systems of both lower extremities are sonographically normal and compressible. Normal wave forms and augmentation are seen. There is no sonographic evidence for deep venous thrombosis in the visualized segments of both lower extremities. There is a 1.2 x 5.9 cm fluid collection a right popliteal fossa, consistent with a Sheth cyst IMPRESSION: No sonographic evidence for deep venous thrombosis in the visualized segments of both lower extremities.
--- NOTE | 2018-05-30 19:59 | PN ---
Copied To: Genaro Goldman MD Attending MD: Genaro Goldman MD DATE: 05/30/2018 SUBJECTIVE: The patient is currently seen using inhalation therapy, her breathing is perhaps slightly better. IV fluids were discontinued because of her shortness of breath. Hence her creatinine had risen from 2.2 up to 2.7, her BUN is now up to 71. The patient is once again encouraged to take an oral hydration. The patient has what appears to be metastatic cancer to the chest and to the liver. She does have a history of primary breast cancer. MEDICATIONS: Medication list reviewed. The patient is on Brovana, Cogentin, Desyrel, Venofer, Klonopin, Lovenox, nystatin, Pulmicort, Solu-Medrol, Tylenol, Xopenex, Zofran, Zyprexa. PHYSICAL EXAMINATION INTAKE/OUTPUT: Intake 1220 and output 1400. VITAL SIGNS: Blood pressure 116/73, temperature 97.7, pulse of 78 with a respiratory rate of 20. HEENT: Shows her to be normocephalic, atraumatic. Conjunctivae remain pale. Sclerae are nonicteric. NECK: Supple. No neck vein distention. CHEST: Clear to auscultation and percussion with no rales, rhonchi or wheezing. The patient has a new port in her right chest wall. CARDIOVASCULAR: Shows a regular rate and rhythm without audible murmurs, rubs or gallops. Positive history of TR on echocardiogram. ABDOMEN: Obese. Soft. Bowel sounds normal. No rebound, guarding or masses. No tenderness over her right upper quadrant. EXTREMITIES: Puffy with no pitting edema. No cyanosis or clubbing. Distal lower extremity pulses are reduced secondary to puffy legs. LABORATORY DATA AND IMAGING: CBC: White blood cell count today up to 20.3, likely steroid effect. Hemoglobin is 9.6 with a platelet count of 323,000. Chemistries show a potassium of 5.1 today. BUN is up from the low 50s up to 71. Creatinine is up from 2.1 - 2.2 range to 2.7. This is with discontinuation of IV fluid hydration. Elevation of BUN likely in part secondary to steroids. Glucose is 117, calcium 8.4, phosphorus 5.5 with a magnesium of 2.6. Iron saturations are low at 9%, hence the patient is receiving IV Venofer. Mild elevation of her liver enzymes likely secondary to probable malignancy spread to her liver. BNP 565. Albumin is 3. Procalcitonin level is elevated at 3.31. Urine fractional excretion of sodium was less than 1%. Urine Saran stain was negative. Her abdominal CT scan showed normal kidneys, positive metastatic disease to the liver and chest CT scan showed positive metastatic disease to the lung. Microbiology, all cultures are negative at four days. Urine cultures are negative. ASSESSMENT: 1. Acute renal failure in a patient with no past history of chronic kidney disease. The patient's baseline BUN back earlier this year was less than 10. Baseline creatinine earlier this year was less than 1. This is perhaps secondary to hypoperfusion. As evidenced by low fractional excretion of sodium. No evidence for obstructive uropathy, no evidence for interstitial nephritis. IV fluids were discontinued yesterday because of increasing shortness of breath. If oral intake remains suboptimal, IV fluids will need to be restarted. I will wait to see if tomorrow's BUN and creatinine are higher; if they are, the patient will need to have IV fluids cautiously restarted. Agree with decision to continue holding her angiotensin receptor wade. 2. History of hypertension. Blood pressure is controlled. The patient is currently off all blood pressure medication. 3. History of hyperlipidemia, diet controlled. 4. History of gout. Uric acid levels are normal. The patient in the past had been on Uloric therapy. 5. Increased shortness of breath, perhaps secondary to metastatic disease to the lung. The patient is receiving inhalation therapy as per Pulmonary. There is no evidence for congestive heart failure. Echocardiogram showed an ejection fraction of 82% with just trace to mild tricuspid regurgitation. 6. History of breast cancer, status post chemotherapy approximately 1 year ago. Perhaps the patient has metastatic disease secondary to breast cancer. There is some thought that the patient will likely have a tissue biopsy done perhaps a biopsy of the mass in the liver. 7. History of anemia. Hemoglobin was low, iron saturations were low, B12 and folic acid level were normal. The patient is receiving IV Venofer. I will hold any LU therapy in light of her malignancy pending advice of Hematology/Oncology. PLAN: 1. We will try to continue to hold IV fluid hydration, but if her BUN and creatinine continue to increase, no choice but to restart her back on IV fluids. 2. Agree with decision to discontinue antibiotic therapy. 3. In light of her bipolar disorder, the patient will continue present medication with Cogentin, Desyrel, Klonopin and Zyprexa. The patient is not taking lithium. 4. Continue to follow labs closely. 5. Continue IV Venofer to supplement her low iron stores. Genaro Goldman MD
[2018-05-30] MEDS ORDERED: guaiFENesin DM 200 mg-20 mg/10 ml UD PO PRN (20:18)
--- NOTE | 2018-05-30 22:17 | CON ---
Copied To: Alon Pozo MD Attending MD: Alon Pozo MD DATE: 05/30/2018 GASTROLOGY CONSULTATION REQUESTING PHYSICIAN: Jessica Flores MD REASON FOR CONSULTATION: I have been asked to see this 62-year-old female with a history of breast cancer diagnosed approximately 2 years ago status post lumpectomy followed by chemoradiation, who was admitted to the hospital with shortness of breath and leg swelling. The patient also had associated fatigue and generalized weakness. I have been asked to see this patient for elevated liver enzymes. CT scan of the chest, abdomen, and pelvis revealed multiple lesions throughout the liver suggestive of metastasis as well as multiple pulmonary nodules. She currently is comfortable. She denies any abdominal pain, nausea, vomiting. Her shortness of breath has resolved. PAST MEDICAL HISTORY: Notable for breast cancer status post chemoradiation, hypertension, bipolar disorder, hyperlipidemia, gout. PAST SURGICAL HISTORY: Notable for lumpectomy. SOCIAL HISTORY: She denies cigarette smoking or alcohol use. FAMILY HISTORY: Noncontributory. MEDICATIONS AT HOME: Include Zyprexa, trazodone, Bystolic, irbesartan, Uloric, Klonopin, Cogentin, and nebulizers. REVIEW OF SYSTEMS: A 14-point review of systems is notable for shortness of breath, leg swelling, generalized weakness, and fatigue. PHYSICAL EXAMINATION: GENERAL: Well-developed female lying in bed, in no acute distress. VITAL SIGNS: Reveal temperature of 97.7, blood pressure 116/73, heart rate . HEENT: Reveal sclerae to be white. Conjunctivae pale. NECK: Supple. CHEST: Reveals lungs to be clear. HEART: Reveals regular rate and rhythm. ABDOMEN: Obese, soft, nontender. EXTREMITIES: Show trace pedal edema. LABORATORY DATA: Reveal white blood cell count 20.3, hemoglobin 9.6. Chemistries reveal potassium 5.1, BUN 71, creatinine 2.7. AST 137, ALT 28, alkaline phosphatase of 275. IMPRESSION: A 62-year-old female admitted to the hospital with shortness of breath and generalized weakness, found to have elevated liver enzymes. CT scan of the abdomen and chest reveals lesions in the liver, highly suspicious for liver metastasis as well as multiple pulmonary nodules, again suspicious for malignancy and metastatic disease. She was diagnosed with breast cancer back in 2016. RECOMMENDATIONS: I have discussed with the patient's son and daughter, liver biopsy for diagnosis. The patient is agreeable. We will request Dr. Pino to do a liver biopsy. Aoln Pozo MD
--- NOTE | 2018-05-31 00:37 | PN ---
Copied To: Jessica Flores MD Attending MD: Jessica Flores MD DATE: 05/30/2018 SUBJECTIVE: The patient is 62 years old, seen and examined. Shortness of breath seems to be a little better, but still has generalized weakness. Complains of right upper quadrant pain. PHYSICAL EXAMINATION: VITAL SIGNS: She is afebrile, pulse 78, respirations 20, blood pressure 116/73. LUNGS: Bilateral fair airflow. No rhonchi or crackle. HEART: S1 and S2, audible. ABDOMEN: Soft, obese, nontender. No rebound. No guarding. NEUROLOGICAL: Patient is awake, alert, oriented, able to communicate. EXTREMITIES: Able to move all extremities. No leg edema. LABORATORY EXAM: WBC is 20.3, hemoglobin 9.6, hematocrit 31.4, platelets of 323. Chemistry: Sodium 136, potassium 5.1, chloride 104, CO2 of 19, BUN 71, creatinine 2.7, blood sugar of 117, phosphorus is 5.5. MRI of the brain shows partially empty sella turcica, which is a normal variant on amicable noncontrast MRI of the brain. ASSESSMENT: 1. Exertional dyspnea. 2. Worsening renal failure. 3. Cancer of breast, mets to the liver and the lung. 4. History of bipolar disorder. 5. Anxiety disorder. PLAN: Discussed with Dr. Pozo plan for liver biopsy to see if this is mets from the breast or it is a new primary. In the meantime, the patient will remain on IV steroids. She is getting iron supplementation, had Port-A-Cath placed yesterday. Awaiting the Hematology input. Her IV fluid discontinued because of questionable fluid overload. We will monitor her CBC and CMP in a.m. and discussed with the patient's family, they seem to agree with liver biopsy that will be done in the a.m. by Dr. Dave Pino and we will make further management. Jessica Flores MD
--- NOTE | 2018-05-31 03:18 | PN ---
Copied To: Dee German MD Attending MD: Dee German MD DATE: 05/30/2018 REFERRING PHYSICIAN: Jessica Flores MD SUBJECTIVE: She is lying in the bed. Head at 45 degrees. Night was unremarkable. Could not use CPAP, thinks too high pressure. Family is at bedside. No chest pain. No nausea, no vomiting, no diarrhea. No leg pain or leg swelling. OBJECTIVE: GENERAL: In no acute distress. VITAL SIGNS: Temperature is 98, heart rate is 78, respiratory rate is 20, blood pressure 116/73, pulse ox 97% on 2 L nasal cannula. HEENT: Moist mucous membrane. Crowded airway. NECK: Supple. No JVD. LUNGS: Has a fair airflow. No rhonchi. HEART: S1 and S2. ABDOMEN: Soft, nontender, no organomegaly. EXTREMITIES: No edema. NEUROLOGIC: Awake and alert, follows simple command. MEDICATIONS: She is on Brovana inhaled twice a day, Cogentin 1 mg daily, trazodone 50 mg daily, iron sucrose 200 mg on Tuesday, Tuesday, Tuesday, clonazepam 0.5 mg twice a day, Lovenox 30 mg subcutaneous daily, nystatin oral suspension 4 times daily, Pulmicort inhaled twice a day, Robitussin 10 mL every 6 hours p.r.n., Solu-Medrol 30 mg every 12 hours, Tylenol p.r.n., Xopenex inhaled every 8 hours, Zofran p.r.n., Zyprexa 2.5 mg daily and also Zyprexa 20 mg p.o. daily. LABORATORY DATA: Shows hemoglobin 9.6, hematocrit 31.4, WBC 20,000, platelet count is 323. Sodium 136, potassium 5.1, chloride 104, bicarbonate 19, BUN 71, creatinine 2.7, glucose 117, calcium is 8.4, phosphorus is 5.5, magnesium 2.6, AST 137, ALT 28, alkaline phosphatase is 275, pro-BNP is 565, albumin is 3, procalcitonin 3.31, TSH 0.27. Urinalysis shows wbc's 0-5. Microbiology, blood culture, urine culture, throat culture, there is no growth. Had MRI of the brain done, which was unremarkable non-contrast enhanced MRI of the brain. ASSESSMENT AND PLAN: Positive CT findings of the chest and abdomen consistent with metastatic disease, primary could be breast, hypertension, gout, bipolar disorder, chronic lung disease, has sleep apnea syndrome, renal failure, high procalcitonin, probably of pneumonia. I spoke to family at bedside. All their questions answered. We will add Ceftin 500 mg twice a day, decrease CPAP pressure to 5 cm. Keep head elevated at 45 degrees. Oncology followup. Gastric and deep venous thrombosis prophylaxis. Pressure ulcer precautions. Thank you and we will follow with you. Dee German MD
[2018-05-31 06:42] LABS: HEMOGLOBIN 9.4 g/dL (12.0-16.0); MEAN CELL VOLUME 74.7 fl (80.0-105.0); MEAN CORPUSCULAR HEMOGLOBIN 23.3 pg (25.0-35.0); MEAN CORPUSCULAR HGB CONC 31.2 g/dl (31.0-37.0); MEAN PLATELET VOLUME 9.3 fl (7.0-11.0); RBC 4.03 10^6/uL (3.5-6.1); RED CELL DISTRIBUTION WIDTH 16.6 % (11.5-14.5); WHITE BLOOD COUNT 19.6 10^3/ul (4.5-11.0)
[2018-05-31 06:45] LABS: ALBUMIN 2.8 g/dL (3.0-4.8); CALCIUM 8.4 mg/dL (8.4-10.5)
--- NOTE | 2018-05-31 07:02 | CP.PCM.PN ---
Subjective - Date & Time of Evaluation Date of Evaluation: 05/31/18 Time of Evaluation: 06:20 - Subjective Subjective: awake,lying in bed,no distress, daughter at bedside, shortness of breath on exertion Reason for consultation and follow up: cardiac evaluation of shortness of breath,History of hypertension, COPD, bipolar disorder, depression, hyperlipidemia, gout, left breast lumpectomy, breast cancer with chemotherapy . Seen and examined by me and Dr. Mar Objective - Vital Signs/Intake and Output Vital Signs (last 24 hours): Temp Pulse Resp BP Pulse Ox 97.8 F 42 L 20 140/55 L 98 05/30/18 16:49 05/30/18 16:49 05/30/18 16:49 05/30/18 16:49 05/30/18 16:49 Intake and Output: 05/30/18 05/31/18 18:59 06:59 Intake Total 460 Output Total 250 Balance 460 -250 - Medications Medications: Current Medications Acetaminophen (Tylenol 325mg Tab) 650 mg PO Q4 PRN PRN Reason: Pain, Mild (1-3) Arformoterol Tartrate (Brovana) 15 mcg IH [id number] [facility] Last Admin: 05/30/18 20:05 Dose: 15 mcg Benztropine Mesylate (Cogentin) 1 mg PO QPM [facility] Last Admin: 05/30/18 17:22 Dose: 1 mg Budesonide (Pulmicort Respules) 0.5 mg IH [id number] [facility] Last Admin: 05/30/18 20:05 Dose: 0.5 mg Clonazepam (Klonopin) 0.5 mg PO BID [facility] PRN Reason: Protocol Last Admin: 05/30/18 17:22 Dose: 0.5 mg Doxycycline Hyclate (Doryx) 100 mg PO Q12 [facility] PRN Reason: Protocol Last Admin: 05/30/18 21:45 Dose: 100 mg Enoxaparin Sodium (Lovenox) 30 mg SC DAILY [facility] PRN Reason: Protocol Last Admin: 05/30/18 11:05 Dose: 30 mg Guaifenesin/Dextromethorphan (Robitussin Dm) 10 ml PO Q6H PRN PRN Reason: Cough Last Admin: 05/30/18 21:35 Dose: 10 ml Iron Sucrose 200 mg/ Sodium (Chloride) 110 mls @ 110 mls/hr IVPB MWF [facility] Stop: 06/07/18 10:59 Last Admin: 05/29/18 18:38 Dose: 110 mls/hr Levalbuterol HCl (Xopenex) 1.25 mg IH TIDRESP [facility] Last Admin: 05/30/18 20:05 Dose: 1.25 mg Methylprednisolone (Solu-Medrol) 30 mg IVP Q12 [facility] Last Admin: 05/30/18 21:36 Dose: 30 mg Nystatin (Nystatin Oral Susp) 5 ml PO QID [facility] Last Admin: 05/30/18 21:36 Dose: 5 ml Olanzapine (Zyprexa) 20 mg PO DAILY [facility] Last Admin: 05/30/18 11:05 Dose: 20 mg Olanzapine (Zyprexa) 2.5 mg PO DAILY [facility] PRN Reason: Protocol Last Admin: 05/30/18 11:06 Dose: Not Given Ondansetron HCl (Zofran Inj) 4 mg IVP Q6H PRN PRN Reason: Nausea/Vomiting Last Admin: 05/29/18 12:19 Dose: 4 mg Trazodone HCl (Desyrel) 50 mg PO DAILY [facility] Last Admin: 05/30/18 11:05 Dose: 50 mg - Labs Labs: 05/30/18 06:00 05/31/18 06:00 PT 13.3 SECONDS (9.4-12.5) H 05/26/18 10:20 INR 1.15 05/26/18 10:20 APTT 27.1 Seconds (25.1-36.5) 05/26/18 10:20 - Constitutional Appears: No Acute Distress - Eye Exam Eye Exam: Normal appearance - ENT Exam ENT Exam: Mucous Membranes Moist - Respiratory Exam Respiratory Exam: Decreased Breath Sounds, NORMAL BREATHING PATTERN - Cardiovascular Exam Cardiovascular Exam: +S1, +S2 Additional comments: right chest port, dressing intact - GI/Abdominal Exam GI & Abdominal Exam: Soft, Normal Bowel Sounds - Extremities Exam Additional comments: 2+edema - Neurological Exam Neurological Exam: Alert, Awake, Oriented x3 - Psychiatric Exam Psychiatric exam: Normal Affect - Skin Skin Exam: Dry, Warm Assessment and Plan - Assessment and Plan (Free Text) Assessment: A 62 year old female, morbidly obese, who came in to [facility] due to shortness of breath on exertion for the past several weeks. They went to [facility] initially but signed against medical advice.She follows up with Dr. Flores (PMD) History of hypertension, COPD, bipolar disorder, depression, hyperlipidemia, gout, left breast lumpectomy, breast cancer with chemotherapy . She takes Valsartan but due to recall changed to Irbesartan. Daughter claimed since then she had shortness of breath and log swelling. Also daughter claimed that they have home renovations adjacent to her room wondering if that causes her shortness of breath too. Rule out congestive heart failure. Exacerbation of COPD.Acute renal failure, started on low dose solumedrol. ECHO done -Normal LVEF, normal valve functions,Mild TR, no pericardial effusion.05/26/18 CT of pelvis and abdomen- small abdominal and pelvic ascitis, metastatic deposits in the liver and visualized lungs 05/27/18 CT of chest done-multiple parenchymal nodules scattered in both lungs, the largest in the right lung base measures 12mm presumable metastatic in etiology Work up from [facility] noted: 05/25/18- VQ Lung Scan- low probability of pulmonary embolism. 05/25/18- Venous doppler of both legs- no evidence of DVT. Large right popliteal cyst.02/17/16- Stress Test done- Normal myocardial perfusion,11/15/17- Removal of samuel cath right chest Plan: Cardiac status stable Heart rate and blood pressure controlled Normal Brain MRI done yesterday to rule out metastasis Renal on consult. Pulmonary on consult Oncology on consult, work up in progress US of lower extremity negative for DVT Continue current medications Continue current treatment Discharge planning Will follow up Plan and treatment discussed with Dr. Mar
[2018-05-31] MEDS: Levalbuterol 1.25 MG/3 ML Inhal Soln UD IH SCH ×3 (07:38→19:59)
[2018-05-31] MEDS: Budesonide 0.5 mg/2 ml Inhal Susp UD IH SCH ×2 (07:38→19:59)
[2018-05-31] MEDS: Arformoterol 15 mcg/2 ml Inh Sol IH SCH ×2 (07:38→19:59)
[2018-05-31] MEDS: MethylPREDNISolone 40 mg Vial IVP SCH (10:08)
[2018-05-31] MEDS: Nystatin 100,000 Units/ml Oral Susp 5 ml UD PO SCH ×5 (10:10→21:51)
--- NOTE | 2018-05-31 12:36 | PN ---
Copied To: Alon Pozo MD Attending MD: Alon Pozo MD DATE: 05/31/2018 SUBJECTIVE: The patient is lying in bed, comfortable. She denies any abdominal pain. PHYSICAL EXAMINATION: VITAL SIGNS: Reveal temperature of 97.8, blood pressure 140/55, heart rate 42. HEENT: Reveal sclerae to be white. Conjunctivae pink. NECK: Supple. CHEST: Lungs are clear. HEART: Reveals a regular rate and rhythm. ABDOMEN: Obese, soft, nontender. EXTREMITIES: Show no edema. LABORATORY DATA: Reveal white blood cell count 19.6, hemoglobin 9.4. Chemistries reveal AST 140, ALT 29, alkaline phosphatase of 296. IMPRESSION: A 62-year-old female with known history of breast cancer with recent CT imaging showing probable liver metastasis and multiple pulmonary nodules, most likely representing lung metastasis. She also has acute kidney failure. Etiology of which is unclear. She also has a leukocytosis with negative blood cultures. Etiology of the leukocytosis is unclear. RECOMMENDATIONS: I have discussed this case with Dr. Dave Pino. He will perform a liver biopsy for evaluation of the lesion seen on CAT scan. Alon Pozo MD
[2018-05-31] MEDS ORDERED: Midazolam 2 MG/2 ML VIAL ONE (17:15)
[2018-05-31] MEDS ORDERED: Sodium Chloride 0.45% 1,000 ML IV SCH (18:30)
--- NOTE | 2018-05-31 18:33 | CT ---
PROCEDURE: CT guided liver biopsy. HISTORY: Breast carcinoma. New liver lesions. Evaluate for metastatic disease. PHYSICIAN(S): Dave Pino MD. TECHNIQUE: The relative risks and indications of the procedure were explained to the patient and her sons and consent obtained. The patient was placed supine on the CT scanner and preliminary images through the liver obtained. Conscious sedation and monitoring were provided throughout the procedure by a nurse. There is a 6 cm lesion in the periphery of right lobe. A oblique right anterior approach was selected and the area prepped and draped in the usual sterile fashion. 1% Xylocaine was used to anesthetize the skin and soft tissues. A 17-gauge guiding needle was advanced into the 6 cm right liver mass. Its position was confirmed with CT. Using coaxial technique, multiple core biopsies were obtained. The postprocedure images show no evidence of significant hemorrhage. IMPRESSION: 1. CT-guided liver biopsy as described above.
[2018-05-31] MEDS ORDERED: Midazolam 2 MG/2 ML VIAL IVP ONE (18:37)
[2018-05-31] MEDS ORDERED: Morphine 4 mg/ml ISec IVP STA (18:45)
[2018-05-31] MEDS ORDERED: Morphine 4 mg/ml ISec IV ONE (18:45)
[2018-05-31] MEDS ORDERED: Morphine 4 mg/ml ISec ONE (18:49)
--- NOTE | 2018-05-31 21:43 | CP.PCM.PN ---
Subjective - Date & Time of Evaluation Date of Evaluation: 05/31/18 Time of Evaluation: 17:20 - Subjective Subjective: s/p percutaneous liver lesion biopsy Objective - Vital Signs/Intake and Output Vital Signs (last 24 hours): Temp Pulse Resp BP Pulse Ox 98.7 F 73 15 115/68 98 05/31/18 19:15 05/31/18 19:15 05/31/18 19:15 05/31/18 19:15 05/31/18 19:15 Intake and Output: 05/31/18 06/01/18 18:59 06:59 Intake Total 100 Balance 100 - Medications Medications: Current Medications Acetaminophen (Tylenol 325mg Tab) 650 mg PO Q4 PRN PRN Reason: Pain, Mild (1-3) Arformoterol Tartrate (Brovana) 15 mcg IH [id number] [facility] Last Admin: 05/31/18 19:59 Dose: 15 mcg Benztropine Mesylate (Cogentin) 1 mg PO QPM [facility] Last Admin: 05/31/18 19:30 Dose: 1 mg Budesonide (Pulmicort Respules) 0.5 mg IH [id number] [facility] Last Admin: 05/31/18 19:59 Dose: 0.5 mg Clonazepam (Klonopin) 0.5 mg PO BID [facility] PRN Reason: Protocol Last Admin: 05/31/18 19:29 Dose: 0.5 mg Doxycycline Hyclate (Doryx) 100 mg PO Q12 [facility] PRN Reason: Protocol Last Admin: 05/31/18 10:07 Dose: 100 mg Enoxaparin Sodium (Lovenox) 30 mg SC DAILY [facility] PRN Reason: Protocol Last Admin: 05/30/18 11:05 Dose: 30 mg Guaifenesin/Dextromethorphan (Robitussin Dm) 10 ml PO Q6H PRN PRN Reason: Cough Last Admin: 05/30/18 21:35 Dose: 10 ml Iron Sucrose 200 mg/ Sodium (Chloride) 110 mls @ 110 mls/hr IVPB MWF [facility] Stop: 06/07/18 10:59 Last Admin: 05/31/18 10:09 Dose: 110 mls/hr Sodium Chloride (Sodium Chloride 0.45%) 1,000 mls @ 50 mls/hr IV .Q20H [facility] Stop: 06/01/18 04:00 Levalbuterol HCl (Xopenex) 1.25 mg IH TIDRESP [facility] Last Admin: 05/31/18 19:59 Dose: 1.25 mg Methylprednisolone (Solu-Medrol) 20 mg IVP DAILY [facility] Nystatin (Nystatin Oral Susp) 5 ml PO QID [facility] Last Admin: 05/31/18 19:30 Dose: 5 ml Olanzapine (Zyprexa) 20 mg PO DAILY [facility] Last Admin: 05/31/18 10:10 Dose: 20 mg Olanzapine (Zyprexa) 2.5 mg PO DAILY [facility] PRN Reason: Protocol Last Admin: 05/31/18 10:12 Dose: Not Given Ondansetron HCl (Zofran Inj) 4 mg IVP Q6H PRN PRN Reason: Nausea/Vomiting Last Admin: 05/29/18 12:19 Dose: 4 mg Trazodone HCl (Desyrel) 50 mg PO DAILY [facility] Last Admin: 05/31/18 10:07 Dose: 50 mg - Labs Labs: 05/31/18 06:00 05/31/18 06:00 PT 13.3 SECONDS (9.4-12.5) H 05/26/18 10:20 INR 1.15 05/26/18 10:20 APTT 27.1 Seconds (25.1-36.5) 05/26/18 10:20 - Head Exam Head Exam: ATRAUMATIC - Eye Exam Eye Exam: Normal appearance - ENT Exam ENT Exam: Mucous Membranes Dry - Respiratory Exam Respiratory Exam: NORMAL BREATHING PATTERN - Cardiovascular Exam Cardiovascular Exam: +S1, +S2 - GI/Abdominal Exam GI & Abdominal Exam: Normal Bowel Sounds Assessment and Plan (1) Metastatic disease Assessment & Plan: likely recurrent and metastatic breast cancer to the lung and liver s/p percutaneous biopsy; repeat ER/KS/HER2 testing if confirmed breast cancer outpatient f/u with Dr. Mariano for treatment Status: Acute (2) Leukocytosis Assessment & Plan: on steroids reactive Status: Acute (3) Anemia Assessment & Plan: anemia of chronic disease f/u hgb electropheresis Status: Acute
--- NOTE | 2018-05-31 21:53 | PN ---
Copied To: Loreta Giron MD Attending MD: Loreta Giron MD DATE: 05/31/2018 SUBJECTIVE: The patient is seen sitting in recliner. She is awake. She reports she is disoriented. Son is at bedside. She is awaiting a liver biopsy. She complains of pain in her right upper quadrant. PHYSICAL EXAMINATION: GENERAL: Morbidly obese elderly lady sitting in recliner. VITAL SIGNS: Blood pressure 14 0/55, heart rate 42, respiratory rate 20, temperature 97.8. HEENT: Normocephalic, atraumatic, positive pallor. NECK: Supple, no JVD. LUNGS: Bilateral equal air entry, bilateral equal expansion. CARDIAC: S1 and S2, regular rate and rhythm, no murmur, no rub. ABDOMEN: Obese, distended, soft, nontender, bowel sounds present. EXTREMITIES: A 1+ pitting edema of the lower extremities. INTAKE AND OUTPUT: 460/250. LABORATORY DATA: WBC 19.6, hemoglobin 9.4, hematocrit 30, platelets 330. Sodium 137, potassium 5, chloride 105, CO2 of 18, BUN 80, creatinine 2.6, glucose 137, calcium 8.4, phosphorus 5, magnesium 2.6. Albumin 2.8. Urine culture, no growth. Blood culture, no growth. Chest CT showing multiple noncancerous parenchymal nodules scattered in both lungs, small right pleural effusion. CT of the abdomen and pelvis: Metastatic deposits in the liver and lungs. Adrenals, no discrete nodules. Kidney is normal size. No hydronephrosis. Enlarged liver. ASSESSMENT: 1. Acute kidney injury. Creatinine was normal in November of this year. 2. History of hypertension. 3. Morbid obesity. 4. History of gout. 5. History of breast cancer, now with liver metastasis? 6. History of anemia. PLAN: 1. Push p.o. fluids. 2. Avoid nephrotoxins. 3. Follow up liver biopsy report. 4. Continue IV Venofer. 5. Check stool occults. Loreta Giron MD
--- NOTE | 2018-05-31 22:42 | PN ---
Copied To: Jessica Flores MD Attending MD: Jessica Flores MD DATE: 05/31/2018 SUBJECTIVE: The patient is a 62 years old, seen and examined, lying in bed, seems to be comfortable. Less shortness of breath. No nausea or vomiting. Eating fair. PHYSICAL EXAMINATION VITAL SIGNS: She is afebrile, pulse 80, respirations 20, blood pressure 115/82. LUNGS: Bilateral fair airflow. No rhonchi or crackle. HEART: S1, S2 audible. ABDOMEN: Soft, obese, nontender. No rebound. No guarding. NEUROLOGICAL: She is awake, alert, oriented, communicative. LABORATORY EXAM: WBC 19.6, hemoglobin 9.4, hematocrit 30, platelets 318. Chemistry: Sodium 137, potassium 4, chloride 105, CO2 of 18, BUN ____, creatinine 2.6. Blood sugar of 157. AST 140, alkaline phosphatase 296. Throat cultures are negative. ASSESSMENT: 1. History of cancer of breast with stage IV metastasis to the liver and the lungs. 2. Bipolar disorder. 3. Hypertension. 4. Hyperlipidemia. PLAN: The patient is scheduled to have liver biopsy done today. We will monitor her electrolyte in the a.m. and if she remained stable, we will make discharge plan for tomorrow and then based on biopsy report, she will be started on chemotherapy as outpatient. Jessica Flores MD
[2018-06-01 06:20] LABS: HEMOGLOBIN 9.9 g/dL (12.0-16.0); MEAN CELL VOLUME 73.6 fl (80.0-105.0); MEAN CORPUSCULAR HEMOGLOBIN 23.5 pg (25.0-35.0); MEAN CORPUSCULAR HGB CONC 31.9 g/dl (31.0-37.0); RBC 4.21 10^6/uL (3.5-6.1); RED CELL DISTRIBUTION WIDTH 16.6 % (11.5-14.5); WHITE BLOOD COUNT 23.9 10^3/ul (4.5-11.0)
[2018-06-01 06:36] LABS: ALBUMIN 2.8 g/dL (3.0-4.8); CALCIUM 8.5 mg/dL (8.4-10.5)
--- NOTE | 2018-06-01 07:00 | CP.PCM.PN ---
Subjective - Date & Time of Evaluation Date of Evaluation: 06/01/18 Time of Evaluation: 06:40 - Subjective Subjective: Awake,lying in bed,no distress, denies shortness of breath, son at bedside wanted to go home Reason for consultation and follow up: cardiac evaluation of shortness of breath,History of hypertension, COPD, bipolar disorder, depression, hyperlipidemia, gout, left breast lumpectomy, breast cancer with chemotherapy . Seen and examined by me and Dr. Mar Objective - Vital Signs/Intake and Output Vital Signs (last 24 hours): Temp Pulse Resp BP Pulse Ox 98.7 F 73 15 115/68 98 05/31/18 19:15 05/31/18 19:15 05/31/18 19:15 05/31/18 19:15 05/31/18 19:15 Intake and Output: 05/31/18 06/01/18 18:59 06:59 Intake Total 100 Balance 100 - Medications Medications: Current Medications Acetaminophen (Tylenol 325mg Tab) 650 mg PO Q4 PRN PRN Reason: Pain, Mild (1-3) Arformoterol Tartrate (Brovana) 15 mcg IH [id number] [facility] Last Admin: 05/31/18 19:59 Dose: 15 mcg Benztropine Mesylate (Cogentin) 1 mg PO QPM [facility] Last Admin: 05/31/18 19:30 Dose: 1 mg Budesonide (Pulmicort Respules) 0.5 mg IH [id number] [facility] Last Admin: 05/31/18 19:59 Dose: 0.5 mg Clonazepam (Klonopin) 0.5 mg PO BID [facility] PRN Reason: Protocol Last Admin: 05/31/18 19:29 Dose: 0.5 mg Doxycycline Hyclate (Doryx) 100 mg PO Q12 [facility] PRN Reason: Protocol Last Admin: 05/31/18 21:51 Dose: 100 mg Enoxaparin Sodium (Lovenox) 30 mg SC DAILY [facility] PRN Reason: Protocol Last Admin: 05/30/18 11:05 Dose: 30 mg Guaifenesin/Dextromethorphan (Robitussin Dm) 10 ml PO Q6H PRN PRN Reason: Cough Last Admin: 05/30/18 21:35 Dose: 10 ml Iron Sucrose 200 mg/ Sodium (Chloride) 110 mls @ 110 mls/hr IVPB F [facility] Stop: 06/07/18 10:59 Last Admin: 05/31/18 10:09 Dose: 110 mls/hr Levalbuterol HCl (Xopenex) 1.25 mg IH TIDRESP [facility] Last Admin: 05/31/18 19:59 Dose: 1.25 mg Methylprednisolone (Solu-Medrol) 20 mg IVP DAILY [facility] Nystatin (Nystatin Oral Susp) 5 ml PO QID [facility] Last Admin: 05/31/18 21:51 Dose: 5 ml Olanzapine (Zyprexa) 20 mg PO DAILY [facility] Last Admin: 05/31/18 10:10 Dose: 20 mg Olanzapine (Zyprexa) 2.5 mg PO DAILY [facility] PRN Reason: Protocol Last Admin: 05/31/18 10:12 Dose: Not Given Ondansetron HCl (Zofran Inj) 4 mg IVP Q6H PRN PRN Reason: Nausea/Vomiting Last Admin: 05/29/18 12:19 Dose: 4 mg Trazodone HCl (Desyrel) 50 mg PO DAILY [facility] Last Admin: 05/31/18 10:07 Dose: 50 mg - Labs Labs: 06/01/18 06:00 06/01/18 06:00 PT 13.3 SECONDS (9.4-12.5) H 05/26/18 10:20 INR 1.15 05/26/18 10:20 APTT 27.1 Seconds (25.1-36.5) 05/26/18 10:20 - Constitutional Appears: No Acute Distress - Eye Exam Eye Exam: Normal appearance - ENT Exam ENT Exam: Mucous Membranes Moist - Respiratory Exam Respiratory Exam: Decreased Breath Sounds, NORMAL BREATHING PATTERN - Cardiovascular Exam Cardiovascular Exam: +S1, +S2 Additional comments: right chest port - GI/Abdominal Exam GI & Abdominal Exam: Soft, Normal Bowel Sounds - Extremities Exam Additional comments: 1+edema - Neurological Exam Neurological Exam: Alert, Awake, Oriented x3 - Psychiatric Exam Psychiatric exam: Normal Affect - Skin Skin Exam: Dry, Warm Assessment and Plan - Assessment and Plan (Free Text) Assessment: A 62 year old female, morbidly obese, who came in to [facility] due to shortness of breath on exertion for the past several weeks. They went to [facility] initially but signed against medical advice.She follows up with Dr. Flores (PMD) History of hypertension, COPD, bipolar disorder, depression, hyperlipidemia, gout, left breast lumpectomy, breast cancer with chemotherapy . She takes Valsartan but due to recall changed to Irbesartan. Daughter claimed since then she had shortness of breath and log swelling. Also daughter claimed that they have home renovations adjacent to her room wondering if that causes her shortness of breath too. Rule out congestive heart failure. Exacerbation of COPD.Acute renal failure, started on low dose solumedrol. ECHO done -Normal LVEF, normal valve functions,Mild TR, no pericardial effusion.05/26/18 CT of pelvis and abdomen- small abdominal and pelvic ascitis, metastatic deposits in the liver and visualized lungs 05/27/18 CT of chest done-multiple parenchymal nodules scattered in both lungs, the largest in the right lung base measures 12mm presumable metastatic in etiology. CT of head negative for metastasis, US of lower extremities negative for DVT. CT guided Liver biopsy done yesterday. Work up from [facility] noted: 05/25/18- VQ Lung Scan- low probability of pulmonary embolism. 05/25/18- Venous doppler of both legs- no evidence of DVT. Large right popliteal cyst.02/17/16- Stress Test done- Normal myocardial perfusion,11/15/17- Removal of samuel cath right chest Plan: Post CT guided liver biopsy yesterday Denies shortness of breath, wanted to go home Cardiac status stable Heart rate and blood pressure controlled Renal on consult Pulmonary on consult Oncology on consult, work up in progress Follows up with Dr. Mariano Continue current medications Continue current treatment Discharge planning Will follow up Plan and treatment discussed with Dr. Mar
[2018-06-01] MEDS: Arformoterol 15 mcg/2 ml Inh Sol IH SCH (07:50)
[2018-06-01] MEDS: Budesonide 0.5 mg/2 ml Inhal Susp UD IH SCH (07:50)
[2018-06-01] MEDS: Levalbuterol 1.25 MG/3 ML Inhal Soln UD IH SCH ×2 (07:51→13:59)
[2018-06-01 08:18] VITALS: BP 114/67; PULSE 91; RESP 22; TEMP 98.1; O2SAT 96
--- NOTE | 2018-06-01 08:18 | PN ---
Copied To: Dee German MD Attending MD: Dee German MD DATE: 05/31/2018 PULMONARY PROGRESS NOTE REFERRING PHYSICIAN: Jessica Flores MD SUBJECTIVE: She is out of bed to commode, having bowel movement. Night was unremarkable. Did not use CPAP. No headache. No rhinitis. Cough is better, still gets short of breath especially lying down, has orthopnea. No chest pain. No nausea. No vomiting. No diarrhea. No leg pain or leg swelling. OBJECTIVE: GENERAL: In no acute distress. VITAL SIGNS: Temperature is 98, heart rate 78, respiratory rate is 20, blood pressure 116/73, pulse ox 97% on nasal cannula. HEENT: Moist mucous membrane. Crowded airway. NECK: Supple. No JVD. LUNGS: Have a few scattered rhonchi. HEART: S1 and S2. ABDOMEN: Soft, nontender, nondistended. EXTREMITIES: There is no edema. NEUROLOGICAL: Awake and alert. Follows simple command. MEDICATIONS: She is on Brovana inhaled twice a day, Cogentin 1 mg daily, trazodone 50 mg daily, doxycycline 100 mg twice a day, IV iron sucrose 200 mg Tuesday, Tuesday and Tuesday, Klonopin 0.5 mg twice a day, Lovenox 30 mg subcu daily, nystatin oral suspension q.i.d., Pulmicort inhaled twice a day, Robitussin DM 10 mL every 6 hours p.r.n., Solu-Medrol 30 mg every 12 hours, Tylenol p.r.n., Xopenex 1.25 mg three times a day, Zofran p.r.n. basis, Zyprexa 2.5 mg daily and 20 mg daily. LABORATORY DATA: Shows hemoglobin 9.4, hematocrit 30.1, WBC 19.6, platelet is 318. Sodium 137, potassium 4, chloride 105, bicarbonate 18, BUN 80, creatinine 2.6, glucose 137, calcium is 8.4, phosphorus is 5, magnesium is 2.6, AST 140, ALT 26, alkaline phosphatase is 296. Albumin is 2.8, procalcitonin 3.31. Microbiology: Blood culture, urine culture, throat culture is unremarkable. IMPRESSION AND PLAN: CAT scan finding of chest and abdomen consistent with metastatic disease, primary could be breast, has a history of breast cancer, hypertension, gout, bipolar disorder, chronic lung disease, sleep apnea syndrome, probably have a pneumonia, could be post obstructive with the lung nodules. Spoke to the patient's son at bedside. All the questions answered. We will continue antibiotics, inhaled bronchodilators. Discontinue IV Solu-Medrol, based on tapered dose of prednisone. Fall precaution. Sequential compression device to lower extremity. Thank you and we will follow with you. Dee German MD
[2018-06-01] MEDS ORDERED: Sod Polystyrene Sulf 15 gm/60 ml Susp PO ONE (08:19)
[2018-06-01] MEDS: Nystatin 100,000 Units/ml Oral Susp 5 ml UD PO SCH (09:35)
[2018-06-01] MEDS ORDERED: MethylPREDNISolone 40 mg Vial IVP SCH (10:00)
--- NOTE | 2018-06-01 10:46 | PN ---
Copied To: Alon Pozo MD Attending MD: Alon Pozo MD DATE: 06/01/2018 SUBJECTIVE: The patient is lying in bed comfortable. She underwent a CT-guided liver biopsy for tissue diagnosis of probable liver metastasis. The patient has a history of breast cancer diagnosed 2 years ago. Her breathing has improved. She does admit to some dyspnea on exertion. PHYSICAL EXAMINATION: VITAL SIGNS: Reveal temperature of 98.1, blood pressure 114/67, heart rate of 91. HEENT: Reveal sclerae to be white. Conjunctivae pink. NECK: Supple. Chest: Reveal decreased breath sounds at the bases. HEART: Exam reveals regular rate and rhythm. ABDOMEN: Obese, soft, nontender. EXTREMITIES: Show no edema. Laboratory data reveal white blood cell count 23.9, hemoglobin 9.9. Chemistries reveal BUN 87, creatinine 2.4, AST 126, ALT 30, alkaline phosphatase of 296. IMPRESSION: A 62-year-old female with history of breast cancer with probable liver and lung metastasis. She was admitted to the hospital with shortness of breath. She does have a leukocytosis which is most likely secondary to Solu-Medrol prescribed by meter record clerk, Dr. German. She had a liver biopsy yesterday. RECOMMENDATIONS: 1. Await liver biopsy results. 2. The patient is stable from a GI standpoint. She is to follow up with her pearl digger/oncologist, Dr. Mariano. Alon Pozo MD
[2018-06-01] MEDS ORDERED: Albuterol-Ipratrop 3 mg / 0.5 (3 ml) UD IH STA (11:42)
[2018-06-01] MEDS ORDERED: MethylPREDNISolone 40 mg Vial IVP ONE (11:43)
--- NOTE | 2018-06-01 22:53 | PN ---
Copied To: Dee German MD Attending MD: Dee German MD DATE: 06/01/2018 PULMONARY PROGRESS NOTE REFERRING PHYSICIAN: Jessica Flores MD SUBJECTIVE: She is out of bed to chair, son is at bedside. Night was unremarkable. Feels better. Did not use CPAP. No nausea, no vomiting, no diarrhea. Does have some leg swelling. OBJECTIVE GENERAL: In no acute distress. VITAL SIGNS: Temperature is 98, heart rate is 91, respiratory rate is 20, blood pressure 114/67, pulse ox 96% on 2 liters nasal cannula. HEENT: Moist mucous membrane. Crowded airway. NECK: Supple. No JVD. LUNGS: Have a fair airflow with rhonchi. HEART: S1 and S2. ABDOMEN: Soft, nontender. No organomegaly. EXTREMITIES: There is trace edema. NEUROLOGIC: Awake, alert, follows simple commands. MEDICATIONS: She is on Brovana inhaled twice a day, Cogentin 1 mg daily, trazodone 50 mg daily, doxycycline 100 mg twice a day, IV iron 200 mg daily, Klonopin 0.5 mg twice a day, Lovenox 30 mg daily, nystatin four times daily, Pulmicort inhaled twice a day, Robitussin 10 mL every 6 hours p.r.n., Solu-Medrol 20 mg daily, Tylenol p.r.n., Xopenex 1.25 mg every 8 hours, Zofran p.r.n. basis, Zyprexa 2.5 mg daily. LABORATORY DATA: Shows hemoglobin 9.9, hematocrit 31, WBC 23.9, platelet count is 307. Sodium 136, potassium 5.3, chloride 105, bicarbonate 21, BUN 87, creatinine 2.4, glucose is 100, calcium 8.5. AST is 126, ALT is 30, alkaline phosphatase is 296, albumin is 2.8. Microbiology: Blood culture, urine culture and throat culture is unremarkable. IMPRESSION AND PLAN: CT finding suggested of metastatic disease to lungs and liver, status post liver biopsy, report is pending, history of breast cancer, hypertension, gout, bipolar disorder, chronic lung disease, may have component of sleep apnea syndrome probably of pneumonia. Case discussed with the family. The patient is being discharged home, will be treated as outpatient with chemotherapy, completing antibiotics treatment. The patient is noncompliant with CPAP; understands risk benefit ratio. Fall precaution. Will be followed by Dr. Flores as well as Oncology Services. Dee eGrman MD
--- NOTE | 2018-06-02 05:51 | DS ---
Copied To: Jessica Flores MD Attending MD: Jessica Flores MD HISTORY OF PRESENT ILLNESS: The patient is 62-year-old, seen and examined. Sitting in chair. Anxious to go home. Has shortness of breath. Seems to be tachycardic. PHYSICAL EXAMINATION: VITAL SIGNS: She is afebrile, pulse 91, respirations 22, blood pressure 114/67. LUNGS: Bilateral fair airflow. Decreased at bases. HEART: S1 and S2 audible. ABDOMEN: Soft, obese, nontender. No rebound, no guarding. NEUROLOGIC: She is awake and alert. Able to communicate. LABORATORY EXAM: WBC is 23.9, hemoglobin 9.9, hematocrit 31, platelets 307. Chemistry: Sodium 136, potassium 5.3, chloride 104, CO2 of 21, BUN 87, creatinine 2.4, blood sugar of 100, AST 126. Alk phos is 296. ASSESSMENT: 1. Exertional dyspnea. The patient is even hypoxic to room air. 2. History of cancer of breast with metastasis to the liver and lung. The patient had biopsy done yesterday. 3. Hypertension. 4. Hyperlipidemia. 5. History of gout. 6. Bipolar disorder. PLAN: The patient is insisted to go home, although I do not think she is stable enough to go home. She is still tachycardic, she has leukocytosis. Awaiting biopsy report. I will discuss with the patient's son and the patient herself that she should stay; otherwise, she has to sign against medical advice. Jessica Flores MD
== END 2018-06-01 17:20 | disposition home or self-care (01) | DRG 181 ==
LOC: ED 09:07 → ERH 11:55 → 2RSO 13:18 → 3RSO 05-29 11:23
PROVIDERS: ADMIT Internal Medicine; ATTEND Internal Medicine
PROC: 0JH63WZ Insertion of Totally Implantable Vascular Access Device into Chest Subcutaneous Tissue and Fascia, Percutaneous Approach (ICD-10-PCS; 2018-05-29)
PROC: 5A09357 Assistance with Respiratory Ventilation, Less than 24 Consecutive Hours, Continuous Positive Airway Pressure (ICD-10-PCS; 2018-05-29)
PROC: 02HV33Z Insertion of Infusion Device into Superior Vena Cava, Percutaneous Approach (ICD-10-PCS; 2018-05-29)
PROC: 0HBRXZZ Excision of Toe Nail, External Approach (ICD-10-PCS; 2018-05-29)
PROC: 0HBRXZZ Excision of Toe Nail, External Approach (ICD-10-PCS; 2018-05-29)
PROC: 0HBRXZZ Excision of Toe Nail, External Approach (ICD-10-PCS; 2018-05-29)
PROC: 0HBRXZZ Excision of Toe Nail, External Approach (ICD-10-PCS; 2018-05-29)
PROC: 0HBRXZZ Excision of Toe Nail, External Approach (ICD-10-PCS; 2018-05-29)
PROC: 0HBRXZZ Excision of Toe Nail, External Approach (ICD-10-PCS; 2018-05-29)
PROC: 0HBRXZZ Excision of Toe Nail, External Approach (ICD-10-PCS; 2018-05-29)
PROC: 0HBRXZZ Excision of Toe Nail, External Approach (ICD-10-PCS; 2018-05-29)
PROC: 0HBRXZZ Excision of Toe Nail, External Approach (ICD-10-PCS; 2018-05-29)
PROC: 0HBRXZZ Excision of Toe Nail, External Approach (ICD-10-PCS; 2018-05-29)
PROC: 0FB13ZX Excision of Right Lobe Liver, Percutaneous Approach, Diagnostic (ICD-10-PCS; principal; 2018-05-31 16:00)
DX: C78.00 Secondary malignant neoplasm of unspecified lung (principal); N17.9 Acute kidney failure, unspecified; C78.7 Secondary malignant neoplasm of liver and intrahepatic bile duct; J44.1 Chronic obstructive pulmonary disease with (acute) exacerbation; Z68.42 Body mass index [BMI] 45.0-49.9, adult; R18.8 Other ascites; Z85.3 Personal history of malignant neoplasm of breast; F31.9 Bipolar disorder, unspecified; I10 Essential (primary) hypertension; E78.5 Hyperlipidemia, unspecified; M10.9 Gout, unspecified; R09.02 Hypoxemia; E66.01 Morbid (severe) obesity due to excess calories; F41.9 Anxiety disorder, unspecified; D63.8 Anemia in other chronic diseases classified elsewhere; D72.829 Elevated white blood cell count, unspecified; B35.1 Tinea unguium; G47.30 Sleep apnea, unspecified; M71.21 Synovial cyst of popliteal space [Baker], right knee; Z92.21 Personal history of antineoplastic chemotherapy; Z92.3 Personal history of irradiation

== ENCOUNTER 2018-06-06 14:05 | Inpatient (IN) | payer MEDICARE, OTHER ==
--- NOTE | 2018-06-06 15:41 | ED PDOC ---
Arrival/HPI <Forrest Smith - Last Filed: 06/06/18 18:14> - General Historian: Patient, Family - History of Present Illness Time/Duration: > week <Elle Emery - Last Filed: 06/07/18 01:28> - General Chief Complaint: Shortness Of Breath Time Seen by Provider: 06/06/18 14:36 - History of Present Illness Narrative History of Present Illness (Text): 06/06/18 15:33 62-year-old female with a history of metastatic breast cancer presents today with worsening fatigue and shortness of breath. Patient denies chest pain. She denies abdominal pain. No nausea or vomiting. Patient's family states that the patient has been feeling more short of breath and has been laying in bed and very fatigued for the past few days. Family states the patient was just discharged from the hospital on 06/01 after being diagnosed with acute renal failure and findings of nodules on the liver loss having a liver biopsy in the hospital on 05/31. (Elle Emery) Past Medical History - Provider Review Nursing Documentation Reviewed: Yes - Travel History Have you recently traveled outside [place] w/in the past 3 mons?: No - Infectious Disease Hx of Infectious Diseases: None - Cardiac Hx Hypertension: Yes - Pulmonary Hx Chronic Obstructive Pulmonary Disease (COPD): Yes - Neurological Hx Paralysis: No - HEENT Hx HEENT Disorder: No - Renal Hx Renal Disorder: Yes Hx Renal Failure: Yes Other/Comment: arf abnormal labs recently dx [facility] [place] - Endocrine/Metabolic Hx Endocrine Disorders: No - Hematological/Oncological Hx Blood Transfusions: No Hx Blood Transfusion Reaction: No - Integumentary Hx Dermatological Disorder: Yes Other/Comment: rcw scar from pac removal 11/15/2017, left breast scar, thick hard toenails, hx r ft cellulitis - Musculoskeletal/Rheumatological Hx Musculoskeletal Disorders: Yes - Gastrointestinal Hx Gastrointestinal Disorders: Yes (obese) - Genitourinary/Gynecological Hx Reproductive Disorders: No - Psychiatric Hx Bipolar Disorder: Yes Hx Depression: Yes Hx Substance Use: No - Surgical History Other/Comment: L lumpectomy last chemo 2016 - Anesthesia Hx Anesthesia Reactions: No Hx Malignant Hyperthermia: No - Suicidal Assessment Feels Threatened In Home Enviroment: No <Elle Emery - Last Filed: 06/07/18 01:28> Family/Social History - Physician Review Nursing Documentation Reviewed: Yes Family/Social History: Unknown Family HX Smoking Status: Never Smoked Hx Alcohol Use: No Hx Substance Use: No Hx Substance Use Treatment: No <Elle Emery - Last Filed: 06/07/18 01:28> Allergies/Home Meds <OscarForrest - Last Filed: 06/06/18 18:14> <Elle Emery - Last Filed: 06/07/18 01:28> Allergies/Adverse Reactions: Allergies potassium Adverse Reaction (Intermediate, Verified 06/06/18 14:40) "FUNNY FEELING" Home Medications: Home Meds Medication Instructions Recorded Confirmed Febuxostat [Uloric] 80 mg PO QAM 08/19/16 06/06/18 Nebivolol [Bystolic] 10 mg PO BID 08/19/16 06/06/18 Olanzapine [Zyprexa] 20 mg PO DAILY 08/19/16 06/06/18 Clonazepam [Klonopin] 0.5 mg PO DAILY 11/10/17 06/06/18 Albuterol Sulfate [Ventolin Hfa] 2 puff NEB Q6 PRN 05/26/18 06/06/18 Benztropine [Cogentin] 1 mg PO QPM 05/26/18 06/06/18 Irbesartan 150 mg PO BID 05/26/18 06/06/18 Olanzapine [Zyprexa] 2.5 mg PO DAILY 05/26/18 06/06/18 traZODone [Desyrel] 50 mg PO DAILY 05/26/18 06/06/18 Review of Systems - Review of Systems Constitutional: absent: Fatigue, Fevers Respiratory: SOB. absent: Cough Cardiovascular: absent: Chest Pain Gastrointestinal: absent: Abdominal Pain, Constipation, Diarrhea, Nausea, Vomiting Genitourinary Female: absent: Dysuria, Frequency, Hematuria, Urine Output Changes Musculoskeletal: absent: Arthralgias, Back Pain, Neck Pain Skin: absent: Rash, Pruritis Neurological: absent: Headache, Dizziness <Elle Emery - Last Filed: 06/07/18 01:28> Physical Exam Vital Signs Reviewed: Yes Temperature: Afebrile Blood Pressure: Hypotensive Pulse: Regular Respiratory Rate: Normal Appearance: Positive for: Well-Appearing, Non-Toxic, Comfortable Pain Distress: None Mental Status: Positive for: Alert and Oriented X 3 - Systems Exam Head: Present: Atraumatic Mouth: Present: Moist Mucous Membranes Neck: Present: Normal Range of Motion Respiratory/Chest: Present: Good Air Exchange, Decreased Breath Sounds, Tachypneic. No: Clear to Auscultation, Respiratory Distress, Accessory Muscle Use, Tender to Palpation Cardiovascular: Present: Regular Rate and Rhythm, Normal S1, S2. No: Murmurs Abdomen: No: Tenderness, Rebound, Guarding Upper Extremity: Present: Normal ROM Lower Extremity: Present: Normal Inspection. No: Tenderness, Deformity Skin: Present: Warm, Dry, Normal Color Psychiatric: Present: Alert <Elle Emery - Last Filed: 06/07/18 01:28> Vital Signs Temp Pulse Resp BP Pulse Ox 06/06/18 17:17 71 30 H 126/44 L 99 06/06/18 16:08 79 22 100/56 L 97 06/06/18 15:20 81 22 92/41 L 97 06/06/18 15:15 22 97 06/06/18 14:05 97.6 F 83 18 97/57 L 95 Medical Decision Making <Forrest Smith - Last Filed: 06/06/18 18:14> <Elle Emery - Last Filed: 06/07/18 01:28> ED Course and Treatment: 06/06/18 16:05 62yr old female presents with fatigue and shortness of breath worsening over the past week. pt was seen and evaluated by dr. smith. cbc; wbc; 34.3 cmp: bun; 125 cr; 3.3 K; 6.3 cxr; + right sided pleural effusion vs infiltrate. reviewed by dr. smith. lactate; 3.3 ekg; NSR at 90b/m no st elevations, qtc; 413 Code sepsis called pt given 2L Lactated ringers iv bolus ordered. fluid started at 2L as patient is severely fluid overloaded and there is great risk for decompensation with additional fluid bolus. will re-evaluate after 2L . K: 6.3; pt given D50, 10units insulin IV, pt started on Vancomycin and zosyn IV 06/06/18 16:09 consent obtained for femoral central line; signed by patient. 06/06/18 16:[address] Douglass; accepts ICU admission all results discussed with dr. hill accepts admission all aspects of this case were discussed the attending of record. impression; acute renal failure, sepsis, leukocytosis, pleural effusion admit to ICU. (Elle Emery) - Lab Interpretations Lab Results: 06/06/18 15:30 06/06/18 15:30 Lab Results 06/06/18 16:15: Urine Color Yellow, Urine Appearance Clear, Urine pH 5.5, Ur Specific [place] >= 1.030, Urine Protein Trace H, Urine Glucose (UA) Negative, Urine Ketones Negative, Urine Blood Negative, Urine Nitrate Negative, Urine Bilirubin Negative, Urine Urobilinogen 1.0 H, Ur Leukocyte Esterase Negative, Urine RBC 0 - 2, Urine WBC 1 - 3, Ur Epithelial Cells 6 - 8, Amorphous Sediment Small, Urine Bacteria Many, Fine Granular Casts 0 - 2, Coarse Granular Casts Trace H, Urine Other Uyeast 06/06/18 15:47: Blood Type O POSITIVE, Antibody Screen Negative, BBK History Checked No verified bt 06/06/18 15:38: pO2 37, VBG pH 7.37, VBG pCO2 30.0 L, VBG HCO3 17.3 L, VBG Total CO2 18.2 L, VBG O2 Sat (Calc) 71.6 H, VBG Base Excess -6.7 L, VBG Potassium 6.2 H*, Glucose 144 H, Lactate 3.3 H, FiO2 21.0, Sodium 133.0, Chloride 105.0, Venous Blood Potassium 6.2 H* 06/06/18 15:30: PT 14.2 H, INR 1.24, APTT 25.4 06/06/18 15:30: WBC 34.3 H* D, RBC 3.79, Hgb 9.0 L, Hct 28.1 L, MCV 74.1 L, MCH 23.7 L, MCHC 32.0, RDW 17.5 H, Plt Count 223, MPV 9.1, Gran % 94.0 H, Lymph % ( Auto) 4.0 L, [place] % (Auto) 2.0, Eos % (Auto) 0.3 L, Baso % (Auto) 0.1, [place] # ( Auto) 0.3, Eos # (Auto) 0.1, Baso # (Auto) 0.03, Neutrophils % (Manual) 94 H, Lymphocytes % (Manual) 4 L, Monocytes % (Manual) 2, Platelet Evaluation Normal, Polychromasia Slight, Hypochromasia 1+, Anisocytosis (manual) 1+, Microcytosis ( manual) 2+, Ovalocytes Slight 06/06/18 15:30: Sodium 136, Potassium 6.3 H*, Chloride 105, Carbon Dioxide 17 L , Anion Gap 21 H, BUN 125 H*, Creatinine 3.3 H, Est GFR ( Amer) 17, Est GFR (Non-Af Amer) 14, Random Glucose 141 H, Calcium 8.3 L, Phosphorus 6.2 H, Magnesium 3.1 H, Total Bilirubin 1.2, AST 237 H D, ALT 42, Alkaline Phosphatase 431 H D, Lactate Dehydrogenase 8315 H, Total Creatine Kinase 131, Troponin I < 0.01, NT-Pro-B Natriuret Pep 1420 H, Total Protein 5.7 L, Albumin 2.9 L, Globulin 2.8, Albumin/Globulin Ratio 1.0 L, Lipase 131 - RAD Interpretation Radiology Orders: 06/06/18 14:46 CHEST PORTABLE [RAD] Stat 06/06/18 16:07 CHEST,ABDOMEN, PELVIS W/O CONT [CT] Stat HEAD W/O CONTRAST [CT] Stat - Medication Orders Current Medication Orders: Levalbuterol HCl (Xopenex) 1.25 mg IH [id number] [facility] Last Admin: 06/07/18 01:02 Dose: 1.25 mg Discontinued Medications Dextrose (Dextrose 50% Inj) 50 ml IVP STAT STA Stop: 06/06/18 16:22 Last Admin: 06/06/18 17:24 Dose: 50 ml IVP Administration Document 06/06/18 17:24 SRE (Rec: 06/06/18 17:24 SRE [id number]) Charges for Administration # of IVP Administrations 1 Lactated Ringer's 2,000 ml/ IV (SUPPLIES) 2,000 mls @ 7,184.88 mls/hr IV ONCE ONE PRN Reason: 60 ML/KG/HR Stop: 06/06/18 15:52 Last Admin: 06/06/18 16:00 Dose: 7,184.88 mls/hr eMAR Start Stop Document 06/06/18 16:00 EQ (Rec: 06/06/18 16:58 EQ [email or web address]) Intravenous Solution Start Date 06/06/18 Start Time 16:00 Piperacillin Sod/Tazobactam Sod (Zosyn 3.375 In Ns 100ml) 100 mls @ 200 mls/hr IVPB STAT STA PRN Reason: Protocol Stop: 06/06/18 16:22 Last Admin: 06/06/18 16:00 Dose: 200 mls/hr eMAR Start Stop Document 06/06/18 16:00 SRE (Rec: 06/06/18 17:19 SRE [id number]) Intravenous Solution Start Date 06/06/18 Start Time 16:00 End Date 06/06/18 End time 17:00 Total Infusion Time 60 Vancomycin HCl 1.75 gm/ Sodium (Chloride) 500 mls @ 167 mls/hr IVPB ONCE ONE Stop: 06/06/18 18:59 Last Admin: 06/06/18 17:19 Dose: 167 mls/hr eMAR Start Stop Document 06/06/18 17:19 SRE (Rec: 06/06/18 17:20 SRE [id number]) Intravenous Solution Start Date 06/06/18 Start Time 17:15 End Date 06/06/18 End time 19:15 Total Infusion Time 120 Meropenem 500 mg/ Sodium (Chloride) 50 mls @ 100 mls/hr IVPB Q12 TAZ PRN Reason: Protocol Stop: 06/06/18 22:29 Last Admin: 06/06/18 23:40 Dose: 100 mls/hr eMAR Start Stop Document 06/06/18 23:40 JZI (Rec: 06/06/18 23:41 JZI [id number]) Intravenous Solution Start Date 06/06/18 Start Time 23:41 End Date 06/07/18 End time 00:41 Total Infusion Time 60 Sodium Bicarbonate 75 meq/ (Sodium Chloride) 1,075 mls @ 160 mls/hr IV [id number] ONE Stop: 06/07/18 00:07 Last Admin: 06/06/18 20:16 Dose: 160 mls/hr eMAR Start Stop Document 06/06/18 20:16 JZI (Rec: 06/06/18 20:17 JZI [id number]) Intravenous Solution Start Date 06/06/18 Start Time 20:16 End Date 06/07/18 End time 02:00 Total Infusion Time 344 Insulin Human Regular (Humulin R) 10 units IV STAT STA Stop: 06/06/18 16:22 Last Admin: 06/06/18 17:25 Dose: 10 units eMAR Start Stop Document 06/06/18 17:25 SRE (Rec: 06/06/18 17:25 SRE [id number]) Intravenous Solution Start Date 06/06/18 Start Time 17:25 End Date 06/06/18 End time 17:26 Total Infusion Time 1 Lidocaine HCl (Lidocaine 1% (20ml)) 20 ml IJ STAT STA Stop: 06/06/18 17:12 Last Admin: 06/06/18 17:26 Dose: 1 bottle Sodium Polystyrene Sulfonate (Kayexalate Susp) 15 gm PO STAT STA Stop: 06/06/18 16:22 Last Admin: 06/06/18 17:26 Dose: 15 gm Sodium Polystyrene Sulfonate (Kayexalate Susp) 15 gm PO ONCE ONE Stop: 06/07/18 00:58 Vancomycin HCl (Vancomycin Inj) 1,750 mg 15 mg/kg (1750 mg) IVPB STAT STA PRN Reason: Protocol Stop: 06/06/18 15:57 Procedures - Time-Out Type of Procedure: right femoral central venous access Correct Patient (with visual ID + MR# on ID Band): Yes Correct Procedure: Yes Correct Site Marked: Yes Physician Name: Dr. Smith - Central Line Central Line Lumen: triple Central Line Procedure: sterile drapes applied, sterile dressing applied ( chloehexidine skin prep scrub) Central Line Postion: femoral (R) Anesthesia: Lidocaine cc's of anesthesia: 15 Complications: none Central Line Post Position: sutured, good blood return <Forrest Smith - Last Filed: 06/06/18 18:14> Disposition/Present on Arrival <Forrest Smith - Last Filed: 06/06/18 18:14> - Present on Arrival Any Indicators Present on Arrival: No History of DVT/PE: No History of Uncontrolled Diabetes: No Urinary Catheter: No History of Decub. Ulcer: No History Surgical Site Infection Following: None - Disposition Have Diagnosis and Disposition been Completed?: Yes Disposition Time: 16:53 Patient Plan: Admission <Elle Emery - Last Filed: 06/07/18 01:28> - Disposition Diagnosis: Acute renal failure, Anemia, Leukocytosis, Sepsis, Hyperkalemia Disposition: HOSPITALIZED Patient Problems: Current Active Problems Problem Status Onset Acute renal failure Acute Anemia Acute Hyperkalemia Acute Leukocytosis Acute Sepsis Acute Condition: CRITICAL
[2018-06-06 15:44] LABS: VENOUS BLOOD GAS BASE EXCESS -6.7 mmol/L (0.0-2.0); VENOUS BLOOD GAS PO2 37 mm/Hg (30-55); VENOUS BLOOD PH 7.37 (7.32-7.43)
[2018-06-06 15:49] LABS: BASO # 0.03 K/mm3 (0.0-2.0); BASO % 0.1 % (0.0-3.0); EOS # 0.1 (0.0-0.7); EOS % 0.3 % (1.5-5.0); MEAN CELL VOLUME 74.1 fl (80.0-105.0); MEAN CORPUSCULAR HEMOGLOBIN 23.7 pg (25.0-35.0); MEAN PLATELET VOLUME 9.1 fl (7.0-11.0); MONO # 0.3 (0.1-0.6); PLATELET COUNT 223 10^3/uL (120.0-450.0); RBC 3.79 10^6/uL (3.5-6.1); RED CELL DISTRIBUTION WIDTH 17.5 % (11.5-14.5)
[2018-06-06] MEDS ORDERED: Piperacillin/Tazobact 3.375 gm 100 ML IVPB STA (15:53)
[2018-06-06] MEDS ORDERED: Vancomycin 1gm in NS 250ml 1 GM/250 ML BAG IVPB STA (15:53)
[2018-06-06 15:54] LABS: INR 1.24; PARTIAL THROMBOPLASTIN TIME 25.4 Seconds (25.1-36.5); PROTHROMBIN TIME 14.2 SECONDS (9.4-12.5)
[2018-06-06 15:55] LABS: WHITE BLOOD COUNT 34.3 10^3/ul (4.5-11.0)
[2018-06-06] MEDS ORDERED: Vancomycin 500 mg Inj IVPB STA (15:56)
[2018-06-06] MEDS ORDERED: Vancomycin 1.75 GM in Sodium Chloride 0.9% 500 ML IVPB ONE (16:00)
[2018-06-06 16:12] LABS: B-TYPE NATRIURETIC PEPTIDE 1420 pg/mL (0-450); TROPONIN I < 0.01 ng/mL
[2018-06-06 16:18] LABS: ALBUMIN 2.9 g/dL (3.0-4.8); ALT/SGPT 42 U/L (7-56); AST/SGOT 237 U/L (14-36); BLOOD UREA NITROGEN 125 mg/dL (7-21); CALCIUM 8.3 mg/dL (8.4-10.5); GFR NON-AFRICAN AMERICAN 14; LIPASE 131 U/L (23-300)
[2018-06-06] MEDS ORDERED: Dextrose 50% SYRINGE Inj (50 ml) IVP STA (16:21)
[2018-06-06] MEDS ORDERED: Sod Polystyrene Sulf 15 gm/60 ml Susp PO STA (16:21)
[2018-06-06] MEDS ORDERED: Insulin Regular 1 UNITS/0.01 ML ML IV STA (16:21)
--- NOTE | 2018-06-06 16:32 | RAD ---
Date of service: 06/06/2018 HISTORY: fatigue COMPARISON: 05/26/2018 FINDINGS: LUNGS: No active pulmonary disease. PLEURA: There is a small right effusion with fluid layering in the major fissure CARDIOVASCULAR: Mild cardiomegaly OSSEOUS STRUCTURES: No significant abnormalities. VISUALIZED UPPER ABDOMEN: Normal. OTHER FINDINGS: None. IMPRESSION: Small right effusion. Cardiomegaly
[2018-06-06 16:46] LABS: LYMPHOCYTE 4 % (22.0-35.0); NEUTROPHIL 94 % (50.0-70.0)
[2018-06-06 16:47] LABS: ANISOCYTOSIS 1+; HYPOCHROMIA 1+; MICROCYTOSIS 2+; MONOCYTE 2 % (1.0-6.0); OVALOCYTES SLIGHT; PLATELET ESTIMATE NORMAL (NORMAL); POLYCHROMASIA SLIGHT
[2018-06-06] MEDS ORDERED: Lidocaine 1% Inj (20ml) IJ STA (17:11)
[2018-06-06] MEDS ORDERED: Sodium Chloride 0.9% 1,000 ML IV SCH (17:15)
--- NOTE | 2018-06-06 17:18 | CP.PCM.CON ---
History of Present Illness - History of Present Illness History of Present Illness: MICU Consult Note HPI Patient is 62yo female with PMHx of Breast Ca (dx 2016) with mets, s/p chemo/ radiation and L lumpectomy, CKD baseline Cr ~2, Schizophrenia, presents from PMDs office for worsening fatigue and SOB. As per the daughter, who provided most of history, patient was just discharged at end of May for renal failure , and SOB, went home, and has had poor po intake, associated with weakness, fatigue, and mild SOB. Pt denies fever,c hills, cough, chest pain, LE edema, palpitations, HINOJOSA, dizziness, melena. No other constitutional symptoms. PMHx as [place] Ca, Schizophrenia, CKd Surgery Hx Lumpectomy FHx NC Allergies potassium Social Hx denies smoking, etoh, drug use Meds as per EMR Review of Systems - Review of Systems Review of Systems: as per HPI Past Patient History - Infectious Disease Hx of Infectious Diseases: None - Past Social History Smoking Status: Never Smoked - CARDIAC Hx Hypertension: Yes - PULMONARY Hx Chronic Obstructive Pulmonary Disease (COPD): Yes - NEUROLOGICAL Hx Paralysis: No - HEENT Hx HEENT Problems: No - RENAL Hx Chronic Kidney Disease: Yes Hx Renal Failure: Yes Other/Comment: arf abnormal labs recently dx [facility] [place] - ENDOCRINE/METABOLIC Hx Endocrine Disorders: No - HEMATOLOGICAL/ONCOLOGICAL Hx Blood Transfusions: No Hx Blood Transfusion Reaction: No - INTEGUMENTARY Hx Dermatological Problems: Yes Other/Comment: rcw scar from pac removal 11/15/2017, left breast scar, thick hard toenails, hx r ft cellulitis - MUSCULOSKELETAL/RHEUMATOLOGICAL Hx Musculoskeletal Disorders: Yes - GASTROINTESTINAL Hx Gastrointestinal Disorders: Yes (obese) - GENITOURINARY/GYNECOLOGICAL Hx Reproductive Disorders: No - PSYCHIATRIC Hx Bipolar Disorder: Yes Hx Depression: Yes Hx Substance Use: No - SURGICAL HISTORY Other/Comment: L lumpectomy last chemo 2016 - ANESTHESIA Hx Anesthesia Reactions: No Hx Malignant Hyperthermia: No Meds Allergies/Adverse Reactions: Allergies Allergy/AdvReac Type Severity Reaction Status Date / Time potassium AdvReac Intermediate "FUNNY Verified 06/06/18 14:40 FEELING" - Medications Medications: Current Medications Vancomycin HCl 1.75 gm/ Sodium (Chloride) 500 mls @ 167 mls/hr IVPB ONCE ONE Stop: 06/06/18 18:59 Sodium Chloride (Sodium Chloride 0.9%) 1,000 mls @ 165 mls/hr IV .Q6H4M [facility] Physical Exam - Constitutional Appears: Non-toxic, No Acute Distress, Older Than Stated Age - Head Exam Head Exam: NORMAL INSPECTION - Eye Exam Eye Exam: Normal appearance - ENT Exam ENT Exam: Mucous Membranes Dry - Neck Exam Neck exam: Positive for: Full Rom - Respiratory Exam Respiratory Exam: Clear to Auscultation Bilateral, NORMAL BREATHING PATTERN - Cardiovascular Exam Cardiovascular Exam: REGULAR RHYTHM, +S1, +S2 - GI/Abdominal Exam GI & Abdominal Exam: Normal Bowel Sounds, Soft - Extremities Exam Extremities exam: Positive for: pedal edema - Neurological Exam Neurological exam: Alert - Psychiatric Exam Psychiatric exam: Anxious - Skin Skin Exam: Normal Color, Warm Results - Vital Signs Recent Vital Signs: Last Vital Signs Temp 97.6 F 06/06/18 14:05 Pulse 79 06/06/18 16:08 Resp 22 06/06/18 16:08 BP 100/56 L 06/06/18 16:08 Pulse Ox 97 06/06/18 16:08 - Labs Result Diagrams: 06/06/18 15:30 06/06/18 15:30 Labs: Laboratory Results - last 24 hr 06/06/18 06/06/18 06/06/18 15:30 15:30 15:30 WBC 34.3 H* D RBC 3.79 Hgb 9.0 L Hct 28.1 L MCV 74.1 L MCH 23.7 L MCHC 32.0 RDW 17.5 H Plt Count 223 MPV 9.1 Gran % 94.0 H Lymph % (Auto) 4.0 L [place] % (Auto) 2.0 Eos % (Auto) 0.3 L Baso % (Auto) 0.1 [place] # (Auto) 0.3 Eos # (Auto) 0.1 Baso # (Auto) 0.03 Neutrophils % (Manual) 94 H Lymphocytes % (Manual) 4 L Monocytes % (Manual) 2 Platelet Evaluation Normal Polychromasia Slight Hypochromasia 1+ Anisocytosis (manual) 1+ Microcytosis (manual) 2+ Ovalocytes Slight PT 14.2 H INR 1.24 APTT 25.4 pO2 VBG pH VBG pCO2 VBG HCO3 VBG Total CO2 VBG O2 Sat (Calc) VBG Base Excess VBG Potassium Glucose Lactate FiO2 Sodium 136 Potassium 6.3 H* Chloride 105 Carbon Dioxide 17 L Anion Gap 21 H BUN 125 H* Creatinine 3.3 H Est GFR ( Amer) 17 Est GFR (Non-Af Amer) 14 Random Glucose 141 H Calcium 8.3 L Phosphorus 6.2 H Magnesium 3.1 H Total Bilirubin 1.2 AST 237 H D ALT 42 Alkaline Phosphatase 431 H D Lactate Dehydrogenase 8315 H Total Creatine Kinase 131 Troponin I < 0.01 NT-Pro-B Natriuret Pep 1420 H Total Protein 5.7 L Albumin 2.9 L Globulin 2.8 Albumin/Globulin Ratio 1.0 L Lipase 131 Venous Blood Potassium Blood Type Antibody Screen BBK History Checked 06/06/18 06/06/18 15:38 15:47 WBC RBC Hgb Hct MCV MCH MCHC RDW Plt Count MPV Gran % Lymph % (Auto) [place] % (Auto) Eos % (Auto) Baso % (Auto) [place] # (Auto) Eos # (Auto) Baso # (Auto) Neutrophils % (Manual) Lymphocytes % (Manual) Monocytes % (Manual) Platelet Evaluation Polychromasia Hypochromasia Anisocytosis (manual) Microcytosis (manual) Ovalocytes PT INR APTT pO2 37 VBG pH 7.37 VBG pCO2 30.0 L VBG HCO3 17.3 L VBG Total CO2 18.2 L VBG O2 Sat (Calc) 71.6 H VBG Base Excess -6.7 L VBG Potassium 6.2 H* Glucose 144 H Lactate 3.3 H FiO2 21.0 Sodium 133.0 Potassium Chloride 105.0 Carbon Dioxide Anion Gap BUN Creatinine Est GFR ( Amer) Est GFR (Non-Af Amer) Random Glucose Calcium Phosphorus Magnesium Total Bilirubin AST ALT Alkaline Phosphatase Lactate Dehydrogenase Total Creatine Kinase Troponin I NT-Pro-B Natriuret Pep Total Protein Albumin Globulin Albumin/Globulin Ratio Lipase Venous Blood Potassium 6.2 H* Blood Type O POSITIVE Antibody Screen Negative BBK History Checked No verified bt - Imaging and Cardiology Chest x-ray Status: Image reviewed by me, Report reviewed by me Assessment & Plan - Assessment and Plan (Free Text) Assessment: 62yo female presents with Acute on CKD, hyperkalemia, severe sepsis, dehydration Renal Failure Hyperkalemia Severe Sepsis Leukocytosis Dehydration Breast Ca with Mets Anemia - currently afebrile, HD stable, comfortable in NAD, on 2LNC, reports mild SOB - labs, imaging, chart, previous hospitalization reviewed, notable for hyperkalemia, worsening renal failure, leukocytosis Recommend: - supp o2 as needed, duonebs PRN - broad spectrum Abx Merrem, Vanco renally dosed - ID consult - Panculture, UCx, BCx, Procal - Hold BP meds - IVF hydration 1/2 NS with 75meq Sodium Bicarb - renal consult - Check UA, Ulytes - Renal sonogram - obtain LE duplex, r/p DVT - CT A/P without contrast - D50, Insulin, Calcium, Kayex - place Lane - place PICC line - BMP q6hr - GI ppx - DVT ppx - Admit to MICU Critical care time 35 minutes
[2018-06-06 17:29] LABS: PH,URINE 5.5 (4.7-8.0); URINE APPEARANCE CLEAR (CLEAR); URINE BILIRUBIN NEGATIVE (NEGATIVE); URINE BLOOD NEGATIVE (NEGATIVE); URINE COLOR YELLOW (YELLOW); URINE GLUCOSE (UA) NEGATIVE (NEGATIVE); URINE LEUKOCYTE ESTERASE NEGATIVE Leu/uL (NEGATIVE); URINE PROTEIN TRACE mg/dL (<30 mg/dL)
[2018-06-06 17:37] LABS: URINE BACTERIA MANY (NEG); URINE COARSE GRANULAR CAST TRACE /hpf (0-2); URINE FINE GRANULAR CAST 0 - 2 /hpf (0-2); URINE RBC 0 - 2 /hpf (0-2)
[2018-06-06 17:38] LABS: URINE AMORPHOUS SEDIMENT SMALL
[2018-06-06 18:44] LABS: VENOUS BLOOD GAS BASE EXCESS -7.4 mmol/L (0.0-2.0); VENOUS BLOOD GAS PO2 38 mm/Hg (30-55); VENOUS BLOOD PH 7.31 (7.32-7.43)
--- NOTE | 2018-06-06 19:15 | US ---
HISTORY: Leg pain and swelling. Evaluate for DVT PHYSICIAN(S): Dave Pino MD. TECHNIQUE: Duplex sonography and color-flow Doppler with graded compression were used to evaluate the deep venous systems of both lower extremities. FINDINGS: The visualized deep venous systems of both lower extremities are sonographically normal and compressible. Normal wave forms and augmentation are seen. There is no sonographic evidence for deep venous thrombosis in the visualized segments of both lower extremities. There is a large 2.1 x 7.8 cm fluid collection in the right popliteal fossa, consistent with a Sheth's cyst IMPRESSION: No sonographic evidence for deep venous thrombosis in the visualized segments of both lower extremities.
--- NOTE | 2018-06-06 21:25 | CARD ---
APPROVED REPORT Date of service: 06/06/2018 EKG Measurement Heart [id number] <Conclusion> Normal sinus rhythm Possible Anterolateral infarct, age undetermined Abnormal ECG
--- NOTE | 2018-06-06 21:52 | PCM.SEPTIC ---
Sepsis Progress Note - Reassessment Type Date of Evaluation: 06/06/18 Time of Evaluation: 21:48 Reassessment Type: Non-invasive reassessment - Non Invasive Reassessment Were the most recent vital sign reviewed: Yes Vital Sign (Latest): Temp Pulse Resp BP Pulse Ox 97.3 F L 82 42 H 95/71 L 98 06/06/18 20:56 06/06/18 21:20 06/06/18 21:20 06/06/18 21:09 06/06/18 21:20 Cardiovascular: Yes: Regular Rate, Rhythm. No: Edema, Murmur, Bradycardia, Tachycardia Respiratory: Yes: Decreased Breath Sounds, Wheezing. No: Accessory Muscle Use, Respiratory Distress Capillary Refill: Normal (Less than 2 sec) Skin: Normal Color - Invasive Reassessment (complete 2 of 4) Was a Central Venous Pressure Measurement obtained within 6 Hours after the presentation of septic shock: No Was a central venous oxygen measurement obtained within 6 hours after the presentation of septic shock: No Was a bedside cardiovascular ultrasound performed within 6 hours after the presentation of septic shock: No Was a passive leg raise performed or was a fluid challenge performed within 6 hrs of the initial fluid bolus: No Fluid Challenge performed: No
[2018-06-06] MEDS ORDERED: Meropenem 500 MG in Sodium Chloride 0.9% 50 ML IVPB SCH (22:00)
[2018-06-07 00:27] LABS: CALCIUM 7.9 mg/dL (8.4-10.5)
[2018-06-07] MEDS ORDERED: Sod Polystyrene Sulf 15 gm/60 ml Susp PO ONE ×2 (00:57→08:09)
[2018-06-07] MEDS: Levalbuterol 1.25 MG/3 ML Inhal Soln UD IH SCH ×4 (01:02→20:10)
[2018-06-07 07:06] LABS: BASO # 0.03 K/mm3 (0.0-2.0); BASO % 0.1 % (0.0-3.0); EOS # 0.2 (0.0-0.7); EOS % 0.5 % (1.5-5.0); HEMOGLOBIN 8.7 g/dL (12.0-16.0); MEAN CELL VOLUME 74.8 fl (80.0-105.0); MEAN CORPUSCULAR HEMOGLOBIN 23.1 pg (25.0-35.0); MEAN CORPUSCULAR HGB CONC 30.9 g/dl (31.0-37.0); MEAN PLATELET VOLUME 9.5 fl (7.0-11.0); MONO # 0.6 (0.1-0.6); MONO % 1.6 % (1.0-6.0); PLATELET COUNT 217 10^3/uL (120.0-450.0); RBC 3.77 10^6/uL (3.5-6.1); RED CELL DISTRIBUTION WIDTH 17.7 % (11.5-14.5)
[2018-06-07 07:11] LABS: ALBUMIN 2.8 g/dL (3.0-4.8)
[2018-06-07 07:12] LABS: INR 1.21; PARTIAL THROMBOPLASTIN TIME 23.8 Seconds (25.1-36.5)
--- NOTE | 2018-06-07 07:44 | HP ---
Copied To: Jessica Flores MD Attending MD: Jessica Flores MD HISTORY OF PRESENT ILLNESS: The patient is 62 years old black female, known to me from previous admission. The patient was recently admitted with increasing shortness of breath and acute renal failure. The patient was given IV fluids. She was found to have multiple lung nodules along with liver mets, underwent liver biopsy. The patient was still septic with white count of 26,000. She was short of breath and still with renal insufficiency. I wanted her to be in the hospital, but the patient was adamant to go home and son who was by the bedside stated that once she make up her mind, nobody can stop her, so upon the patient's request, she was discharged on 06/01. Since she went home, she has been increasingly weak, short of breath, lethargic, lying in bed, having right upper quadrant discomfort. Today, she had an appointment with Dr. Mariano, who saw the patient and she did not like the way the patient looks, she was short of breath, lethargic, so she was referred to emergency room for admission and further management. PAST MEDICAL HISTORY: She has past medical history significant for; 1. Hypertension. 2. Gout. 3. Bipolar disorder. 4. Recently diagnosed breast cancer in 2016. 5. She had lumpectomy and triple-negative breast tumors. She had chemotherapy followed by radiation. 6. She has generalized osteoarthritis. 7. Morbid obesity. ALLERGIES: SHE IS ALLERGIC TO POTASSIUM. MEDICATIONS AT HOME: She is on nebulizer treatment. She is on Cogentin 1 mg every day, Klonopin 0.5 twice a day, Uloric 80 mg daily, irbesartan 150 twice a day, Bystolic 10 mg twice a day, Zyprexa 20 mg daily and 2.5 in the morning. She was given prednisone tapering dose upon discharge last time. She is on Tylenol 50 mg daily. SOCIAL HISTORY: Denies smoking, drinking, or alcohol use. REVIEW OF SYSTEMS: Significant for generalized weakness, lethargy, shortness of breath. PHYSICAL EXAMINATION: GENERAL: The patient is sleepy, but arousable. VITAL SIGNS: She is afebrile, pulse 73, respirations 35, blood pressure 126/66, pulse ox 95%. HEENT: Symmetrical face, icteric sclerae with pale conjunctivae. LUNGS: She has shallow breathing. Clear breath sounds at the bases. HEART: S1 and S2, audible. ABDOMEN: Soft, obese, and nontender. No rebound. No guarding. NEUROLOGIC: She is sleepy, but arousable. EXTREMITIES: Bilateral legs, +1 edema. LABORATORY DATA: WBC 34.3, hemoglobin 9, hematocrit 28, and platelet of 223. PT 14.2 and INR 1.24. Chemistry; sodium 136, potassium 6.3, chloride 105, CO2 17, BUN 125, creatinine 3.3, blood sugar of 141. Calcium 8.3, magnesium 3.1. AST 237, ALT 42, alk phos 435. LDH is 8315. Urinalysis shows trace protein and granular cast. X-ray of chest shows small right effusion, cardiomegaly. EKG shows normal sinus rhythm, possible anterolateral infarct. ASSESSMENT: 1. Worsening respiratory status with history of chronic obstructive pulmonary disease and cancer of breast with metastasis to the lungs. 2. Metastatic spot in the liver. 3. Acute renal failure. 4. Sepsis with leukocytosis. 5. Hyperkalemia. 6. History of bipolar disorder. PLAN: The patient was given Kayexalate. She was given insulin. She is currently on IV fluids. She is on meropenem. She was given dose of vanco. Nebulizer treatment has been started. Cardiology consult, Dr. Mar. Pulmonary consult, Dr. German. ID consult with Dr. Humphrey. Dr. Mariano for Oncology has been consulted. Jessica Flores MD
--- NOTE | 2018-06-07 08:08 | CP.PCM.CON ---
<Tesha Dodge - Last Filed: 06/07/18 14:40> History of Present Illness - History of Present Illness History of Present Illness: Pgy3 ID Consult note for Dr. Humphrey Please note hx as per son at bedside as patient is a poor historian 62yo female PMHx HTN, COPD, bipolar disorder, depression, hyperlipidemia, CKD Stage II, gout, breast cancer (dx 2016) with mets, s/p chemo/radiation and L lumpectomy was brought in from PMD office for worsening fatigue and SOB. Of note patient was recently admitted last week for dyspnea on exertion and had a liver biopsy during hospital stay; patient had signed out AMA on 06/01 and was on Prednisone 20mg po bid [last day today 06/07]. Patient's son reports she has been complaining of weakness and has been having decreased PO intake and has not been ambulating much. He has also noticed some mild SOB and wheezing. PMHx: [place], COPD, bipolar disorder, depression, hyperlipidemia, gout, breast cancer (dx 2016) with mets, s/p chemo/radiation, CKD Stage II PSurgHx: L lumpectomy and portacath placement FamHx: Mother had pancreatic cancer SocHx: Denies tobacco, alcohol, and illicit drug use. Meds: pls see chart ALL: Potassium Review of Systems - Review of Systems Systems not reviewed;Unavailable: Other (patient poor historian) Review of Systems: as per HPI Past Patient History - Infectious Disease Hx of Infectious Diseases: None - Past Social History Smoking Status: Never Smoked - CARDIAC Hx Hypertension: Yes - PULMONARY Hx Chronic Obstructive Pulmonary Disease (COPD): Yes - NEUROLOGICAL Hx Paralysis: No - HEENT Hx HEENT Problems: No - RENAL Hx Chronic Kidney Disease: Yes Hx Renal Failure: Yes Other/Comment: arf abnormal labs recently dx [facility] [place] - ENDOCRINE/METABOLIC Hx Endocrine Disorders: No - HEMATOLOGICAL/ONCOLOGICAL Hx Blood Transfusions: No Hx Blood Transfusion Reaction: No - INTEGUMENTARY Hx Dermatological Problems: Yes Other/Comment: rcw scar from pac removal 11/15/2017, left breast scar, thick hard toenails, hx r ft cellulitis - MUSCULOSKELETAL/RHEUMATOLOGICAL Hx Musculoskeletal Disorders: Yes - GASTROINTESTINAL Hx Gastrointestinal Disorders: Yes (obese) - GENITOURINARY/GYNECOLOGICAL Hx Reproductive Disorders: No - PSYCHIATRIC Hx Bipolar Disorder: Yes Hx Depression: Yes Hx Substance Use: No - SURGICAL HISTORY Other/Comment: L lumpectomy last chemo 2016 - ANESTHESIA Hx Anesthesia Reactions: No Hx Malignant Hyperthermia: No Meds Allergies/Adverse Reactions: Allergies Allergy/AdvReac Type Severity Reaction Status Date / Time potassium AdvReac Intermediate "FUNNY Verified 06/06/18 14:40 FEELING" - Medications Medications: Current Medications Levalbuterol HCl (Xopenex) 1.25 mg IH [id number] Last Admin: 06/07/18 01:02 Dose: 1.25 mg Physical Exam - Constitutional Appears: Chronically Ill, Other (obese) - Head Exam Head Exam: ATRAUMATIC, NORMAL INSPECTION, NORMOCEPHALIC - Eye Exam Eye Exam: EOMI, Normal appearance, PERRL. absent: Conjunctival injection, Scleral icterus Pupil Exam: NORMAL ACCOMODATION - ENT Exam ENT Exam: Mucous Membranes Moist - Neck Exam Neck exam: Positive for: Full Rom - Respiratory Exam Respiratory Exam: Wheezes (scant ), NORMAL BREATHING PATTERN. absent: Rales, Rhonchi, Respiratory Distress - Cardiovascular Exam Cardiovascular Exam: REGULAR RHYTHM, +S1, +S2 - GI/Abdominal Exam GI & Abdominal Exam: Normal Bowel Sounds, Soft. absent: Tenderness - Rectal Exam Rectal Exam: Deferred - Extremities Exam Extremities exam: Positive for: pedal edema - Neurological Exam Neurological exam: Alert - Psychiatric Exam Psychiatric exam: Anxious - Skin Skin Exam: Dry, Intact Results - Vital Signs Recent Vital Signs: Last Vital Signs Temp 98.5 F 06/07/18 05:35 Pulse 84 06/07/18 05:33 Resp 31 H 06/07/18 05:33 BP 100/74 06/07/18 00:17 Pulse Ox 100 06/07/18 00:17 - Labs Result Diagrams: 06/07/18 06:40 06/07/18 06:40 Labs: Laboratory Results - last 24 hr 06/06/18 06/06/18 06/06/18 16:53 18:30 23:45 WBC RBC Hgb Hct MCV MCH MCHC RDW Plt Count MPV [place] % (Auto) Eos % (Auto) Baso % (Auto) [place] # (Auto) Eos # (Auto) Baso # (Auto) PT INR APTT pO2 38 VBG pH 7.31 L VBG pCO2 36.0 L VBG HCO3 18.1 L VBG Total CO2 19.2 L VBG O2 Sat (Calc) 68.9 H VBG Base Excess -7.4 L VBG Potassium 5.7 H Sodium 135.0 138 Chloride 107.0 106 Glucose 88 Lactate 3.7 H FiO2 21.0 Potassium 5.9 H* Carbon Dioxide 20 L Anion Gap 17 BUN 121 H* Creatinine 2.9 H Est GFR ( Amer) 20 Est GFR (Non-Af Amer) 16 Random Glucose 112 H Calcium 7.9 L Phosphorus Magnesium Total Bilirubin AST ALT Alkaline Phosphatase Total Protein Albumin Globulin Albumin/Globulin Ratio Venous Blood Potassium 5.7 H Blood Type Confirm O POSITIVE 06/07/18 06/07/18 06/07/18 06:40 06:40 06:40 WBC 35.0 H* RBC 3.77 Hgb 8.7 L Hct 28.2 L MCV 74.8 L MCH 23.1 L MCHC 30.9 L RDW 17.7 H Plt Count 217 MPV 9.5 [place] % (Auto) 1.6 Eos % (Auto) 0.5 L Baso % (Auto) 0.1 [place] # (Auto) 0.6 Eos # (Auto) 0.2 Baso # (Auto) 0.03 PT 14.0 H INR 1.21 APTT 23.8 L pO2 VBG pH VBG pCO2 VBG HCO3 VBG Total CO2 VBG O2 Sat (Calc) VBG Base Excess VBG Potassium Sodium 140 Chloride 107 Glucose Lactate FiO2 Potassium 5.3 H Carbon Dioxide 19 L Anion Gap 19 BUN 115 H Creatinine 3.4 H Est GFR ( Amer) 17 Est GFR (Non-Af Amer) 14 Random Glucose 109 Calcium 8.0 L Phosphorus 6.4 H Magnesium 3.0 H Total Bilirubin 1.6 H AST 277 H ALT 48 Alkaline Phosphatase 497 H Total Protein 5.6 L Albumin 2.8 L Globulin 2.8 Albumin/Globulin Ratio 1.0 L Venous Blood Potassium Blood Type Confirm Assessment & Plan - Assessment and Plan (Free Text) Assessment: 62yo female PMHx HTN, COPD, bipolar disorder, depression, hyperlipidemia, CKD Stage II, gout, breast cancer (dx 2016) with mets, s/p chemo/radiation and L lumpectomy was brought in from PMD office for worsening fatigue and SOB. Patient admitted to MICU for severe sepsis Plan: -sepsis likely secondary to HCAP -Cefepime 1gm daily [started 06/08] -f/u random Vancomycin level and give dose 1gm to maintain Vanc level 15-20 -UA neg nitrate, LE. many bacteria, 1-3 wbcs -f/u blood and urine cx -CT Chest/abd/pelvis: multiple pulm nodules; L axially adenopathy; mild ascites and subq edema -continue current management as per MICU team ID will continue to follow Discussed with Dr. Kam Dodge PGY3 <Iftikhar Humphrey - Last Filed: 06/07/18 16:32> Meds - Medications Medications: Current Medications Benztropine Mesylate (Cogentin) 1 mg PO QPM TAZ Clonazepam (Klonopin) 0.5 mg PO BID TAZ PRN Reason: Protocol Sodium Chloride (Sodium Chloride 0.9%) 1,000 mls @ 150 mls/hr IV .Q6H40M [facility] Last Admin: 06/07/18 10:48 Dose: 150 mls/hr Cefepime HCl (Maxipime 1gm) 1 gm in 100 mls @ 100 mls/hr IVPB DAILY TAZ PRN Reason: Protocol Levalbuterol HCl (Xopenex) 1.25 mg IH [id number] [facility] Last Admin: 06/07/18 13:52 Dose: 1.25 mg Olanzapine (Zyprexa) 20 mg PO DAILY TAZ Olanzapine (Zyprexa) 2.5 mg PO DAILY TAZ PRN Reason: Protocol Pantoprazole Sodium (Protonix Ec Tab) 40 mg PO 0600 TAZ Prednisone (Prednisone Tab) 20 mg PO DAILY [facility] Last Admin: 06/07/18 14:14 Dose: 20 mg Trazodone HCl (Desyrel) 50 mg PO HS [facility] Results - Vital Signs Recent Vital Signs: Last Vital Signs Temp 98.5 F 06/07/18 16:00 Pulse 92 H 06/07/18 14:01 Resp 32 H 06/07/18 14:01 BP 122/99 H 06/07/18 14:01 Pulse Ox 100 06/07/18 14:01 - Labs Result Diagrams: 06/07/18 06:40 06/07/18 06:40 Labs: Laboratory Results - last 24 hr 06/06/18 06/06/18 06/06/18 16:53 18:30 18:45 WBC RBC Hgb Hct MCV MCH MCHC RDW Plt Count MPV [place] % (Auto) Eos % (Auto) Baso % (Auto) [place] # (Auto) Eos # (Auto) Baso # (Auto) Neutrophils % (Manual) Band Neutrophils % Lymphocytes % (Manual) Monocytes % (Manual) Metamyelocytes % Myelocytes % PT INR APTT pO2 38 VBG pH 7.31 L VBG pCO2 36.0 L VBG HCO3 18.1 L VBG Total CO2 19.2 L VBG O2 Sat (Calc) 68.9 H VBG Base Excess -7.4 L VBG Potassium 5.7 H Sodium 135.0 Chloride 107.0 Glucose 88 Lactate 3.7 H FiO2 21.0 Potassium Carbon Dioxide Anion Gap BUN Creatinine Est GFR ( Amer) Est GFR (Non-Af Amer) Random Glucose Lactic Acid Calcium Phosphorus Magnesium Total Bilirubin AST ALT Alkaline Phosphatase Total Protein Albumin Globulin Albumin/Globulin Ratio Procalcitonin 6.36 H Venous Blood Potassium 5.7 H Random Vancomycin Blood Type Confirm O POSITIVE 06/06/18 06/07/18 06/07/18 23:45 06:40 06:40 WBC 35.0 H* RBC 3.77 Hgb 8.7 L Hct 28.2 L MCV 74.8 L MCH 23.1 L MCHC 30.9 L RDW 17.7 H Plt Count 217 MPV 9.5 [place] % (Auto) 1.6 Eos % (Auto) 0.5 L Baso % (Auto) 0.1 [place] # (Auto) 0.6 Eos # (Auto) 0.2 Baso # (Auto) 0.03 Neutrophils % (Manual) 89 H Band Neutrophils % 3 H Lymphocytes % (Manual) 4 L Monocytes % (Manual) 1 Metamyelocytes % 2 Myelocytes % 1 PT 14.0 H INR 1.21 APTT 23.8 L pO2 VBG pH VBG pCO2 VBG HCO3 VBG Total CO2 VBG O2 Sat (Calc) VBG Base Excess VBG Potassium Sodium 138 Chloride 106 Glucose Lactate FiO2 Potassium 5.9 H* Carbon Dioxide 20 L Anion Gap 17 BUN 121 H* Creatinine 2.9 H Est GFR ( Amer) 20 Est GFR (Non-Af Amer) 16 Random Glucose 112 H Lactic Acid Calcium 7.9 L Phosphorus Magnesium Total Bilirubin AST ALT Alkaline Phosphatase Total Protein Albumin Globulin Albumin/Globulin Ratio Procalcitonin Venous Blood Potassium Random Vancomycin Blood Type Confirm 06/07/18 06/07/18 06/07/18 06:40 08:20 13:15 WBC RBC Hgb Hct MCV MCH MCHC RDW Plt Count MPV [place] % (Auto) Eos % (Auto) Baso % (Auto) [place] # (Auto) Eos # (Auto) Baso # (Auto) Neutrophils % (Manual) Band Neutrophils % Lymphocytes % (Manual) Monocytes % (Manual) Metamyelocytes % Myelocytes % PT INR APTT pO2 VBG pH VBG pCO2 VBG HCO3 VBG Total CO2 VBG O2 Sat (Calc) VBG Base Excess VBG Potassium Sodium 140 Chloride 107 Glucose Lactate FiO2 Potassium 5.3 H Carbon Dioxide 19 L Anion Gap 19 BUN 115 H Creatinine 3.4 H Est GFR ( Amer) 17 Est GFR (Non-Af Amer) 14 Random Glucose 109 Lactic Acid 1.5 Calcium 8.0 L Phosphorus 6.4 H Magnesium 3.0 H Total Bilirubin 1.6 H AST 277 H ALT 48 Alkaline Phosphatase 497 H Total Protein 5.6 L Albumin 2.8 L Globulin 2.8 Albumin/Globulin Ratio 1.0 L Procalcitonin Venous Blood Potassium Random Vancomycin 19.0 L Blood Type Confirm Assessment & Plan - Assessment and Plan (Free Text) Plan: Infectious Diseases Attending Physician Addendum Patient seen and examined, discussed with medical assistant instructor. I have reviewed the pertinent clinical information for the patient, including history of present illness, medical, personal and social histories, lab results and imaging findings. I agree with the above findings, assessment and plan. In addition, we have started intermittent Vancomycin and Cefepim for this patient with probable sepsis from bilateral HCAP. Follow up blood cx, PCT. Will get Vanco random level and dose Vancomycin to target level 15-20. Will monitor clinically. Overall prognosis is poor.
[2018-06-07] MEDS ORDERED: Vancomycin 1gm in NS 250ml 1 GM/250 ML BAG IVPB STA (08:17)
--- NOTE | 2018-06-07 08:40 | PN ---
Copied To: Deion Alvarado MD Attending MD: Deion Alvarado MD DATE: 06/07/2018 SUBJECTIVE: The patient is seen and examined at bedside. She is comfortable. She talks full sentences. She is not in respiratory or otherwise distress. PHYSICAL EXAMINATION: VITAL SIGNS: Temperature 98.5, afebrile, respiratory 21, heart rate 84, blood pressure 115/72, oxygen saturation 98% on nasal cannula. ENT: Head and neck atraumatic. Neck short and obese. HEART: Regular rate and rhythm. S1 and S2 normal. ABDOMEN: Soft, nontender and nondistended. LUNGS: Clear to auscultation bilaterally. MUSCULOSKELETAL: No C/C/E. Port-A-Cath in the right chest. SKIN: Moist. PSYCH: The patient is poor communicator, but verbalizing and appears to be very comfortable. LABORATORY DATA: WBC 35, hemoglobin 8.7, platelet count 217. Sodium 140; potassium 5.3; chloride 107; carbon dioxide 19; BUN 115; creatinine 3.4, up from 2.9; AST 277; total bilirubin 1.6; ALT 48. VBG showed lactic acid level 3.7, pH 7.31. Urine is negative for leukocyte esterase and nitrites. INR 1.21. MEDICATIONS: Xopenex every 6 hours, vancomycin and Zosyn were given yesterday. Chest, abdomen and pelvic CAT scan results are pending. On preliminary view, it appears that there are bilateral consolidative changes in the lower lobes, right more than left and several b/l pulm nodules Lower extremity ultrasound did not reveal any DVT. CAT scan of the head did not reveal any acute intracranial hemorrhage. ASSESSMENT AND PLAN: This is a 62 old lady, who presented with severe sepsis with significant leukocytosis complicated by multiorgan system failure, including MARILYN and hepatopathy. Potential source includes pneumonia versus skin infection related to Port-A-Cath. Will continue with IVF resuscitation, abx, septic workup, ID consult. MAP>65, avoid hyperchloremia, nephrotoxins. Maintain euvolemia, euglycemia and 02sat>90%. As patient was on steroids at home, started recently, leukocytosis may be related to it. Also transaminitis, while may possibly be due to sepsis, however may also be due to metastatic disease to the liver, which may also explain lactic acidosis (type B). BUN is disproportionally high-- >concern for Upper GI bleed was raised (discussed and agreed upon by Dr. Giron)- ->will get GI on board and continue PPI. Addendum: discussed removal of port-a-cath with Dr. Pino and Dr. Mariano-->as port was placed merely a week ago, unlikely source of infection and will stay. Overall, she looks very comfortable with "rock stable" vital signs, which make me think that there are other then sepsis factors at play, potentially including : 1. steroids-->would explain high leukocytosis; 2. metastatic disease to the liver-->would explain transaminitis; 3. UGIB? (with some dehydration and potentially intrinsic renal problems-->s/pchemo?) to be ruled out-->would explain disproportionaly high BUN over creatinine. ccm time 40 min Deion Alvarado MD [facility]
--- NOTE | 2018-06-07 08:41 | CT ---
Date of service: 06/06/2018 PROCEDURE: CT HEAD WITHOUT CONTRAST. HISTORY: AMS COMPARISON: 05/30/2018 MRI brain TECHNIQUE: Axial computed tomography images were obtained through the head/brain without intravenous contrast. Radiation dose: Total exam DLP = 958.36 mGy-cm. This CT exam was performed using one or more of the following dose reduction techniques: Automated exposure control, adjustment of the mA and/or kV according to patient size, and/or use of iterative reconstruction technique. FINDINGS: HEMORRHAGE: No intracranial hemorrhage. BRAIN: No mass effect or edema. Minimal chronic periventricular white matter ischemic change. VENTRICLES: Unremarkable. No hydrocephalus. CALVARIUM: Unremarkable. PARANASAL SINUSES: Unremarkable as visualized. No significant inflammatory changes. MASTOID AIR CELLS: Unremarkable as visualized. No inflammatory changes. OTHER FINDINGS: None. IMPRESSION: Minimal chronic periventricular white matter ischemic change. No intracranial mass, hemorrhage or evidence of acute infarct. The preliminary findings for this examination were reported by [facility] at 8:28 p.m. on 06/06/2018. There is concurrence of this report with the preliminary findings.
[2018-06-07 09:05] VITALS: BMI 47.3
--- NOTE | 2018-06-07 10:02 | CT ---
Date of service: 06/06/2018 PROCEDURE: CT Chest, Abdomen and Pelvis without intravenous contrast HISTORY: anemia, hx of liver bx. fatigue COMPARISON: None available. TECHNIQUE: Radiation dose: Total exam DLP = 1738 mGy-cm. This CT exam was performed using one or more of the following dose reduction techniques: Automated exposure control, adjustment of the mA and/or kV according to patient size, and/or use of iterative reconstruction technique. FINDINGS: CT CHEST WITHOUT CONTRAST: LUNGS: There multiple pulmonary nodules ranging in size from 5-10 mm. These were demonstrated on recent CT. MEDIASTINUM: Unremarkable. Normal caliber aorta and pulmonary arterial trunk. Normal size heart. LYMPH NODES: Enlarged left axillary lymph nodes are seen, the largest measuring 2.5 cm in diameter. PLEURA: Small right pleural effusion BONES: Unremarkable. OTHER FINDINGS: None. CT ABDOMEN AND PELVIS: LIVER: Unremarkable. No gross lesion or ductal dilatation. GALLBLADDER AND BILE DUCTS: Unremarkable. PANCREAS: Unremarkable. No gross lesion or ductal dilatation. SPLEEN: Unremarkable. ADRENALS: Unremarkable. No mass. KIDNEYS AND URETERS: Unremarkable. No hydronephrosis. No solid mass. VASCULATURE: Unremarkable. No aortic aneurysm. BOWEL: Unremarkable. No obstruction. No gross mural thickening. APPENDIX: Normal appendix. PERITONEUM: There is a small amount of ascites. There is also subcutaneous edema. LYMPH NODES: Unremarkable. No enlarged lymph nodes. BLADDER: Unremarkable. REPRODUCTIVE: Unremarkable. BONES: No acute fracture. OTHER FINDINGS: There is a catheter in the right groin IMPRESSION: Multiple pulmonary nodules. Left axillary adenopathy. Mild ascites and subcutaneous edema
[2018-06-07] MEDS: Cefepime 1gm in NS 100ml 1 GM/100 ML BAG IVPB SCH (10:46)
[2018-06-07] MEDS: Sodium Chloride 0.9% 1,000 ML IV SCH (10:48)
[2018-06-07 11:03] LABS: BAND 3 % (0-2); LYMPHOCYTE 4 % (22.0-35.0); METAMYELOCYTE 2 %; MONOCYTE 1 % (1.0-6.0); MYELOCYTE 1 %; NEUTROPHIL 89 % (50.0-70.0)
--- NOTE | 2018-06-07 12:56 | CP.CCUPN ---
<Iris Bates - Last Filed: 06/07/18 12:19> CCU Subjective - Physician Review Events Since Last Encounter (Free Text): 06/07/18 12:19 Patient seen and examined at bedside. No acute events overnight. Patient is alert, awake, oriented x3, sleepy this AM. Had small BM overnight. Patient states that she is hungry and would like to eat. States that her sob is improved. Denies fevers, chills, nausea, vomiting, abdominal pain, cp, leg swelling. CCU Objective - Vital Signs / Intake & Output Vital Signs (Last 4 hours): Vital Signs Pulse Resp BP Pulse Ox 06/07/18 11:01 92 H 31 H 104/63 100 06/07/18 11:00 92 H 31 H 100 06/07/18 10:16 90 30 H 97/67 L 100 06/07/18 10:00 89 27 H 100 06/07/18 09:00 91 H 36 H 93/57 L 98 Intake and Output (Last 8hrs): Intake & Output 06/06/18 06/07/18 06/07/18 22:59 06:59 14:59 Intake Total 1420 Output Total 400 Balance 1020 Weight 275 lb 11.2 oz Intake: IV 1220 Right Femoral 1220 Oral 200 Output: Urine 400 2-way Urethral 400 Other: Voiding Method Indwelling Catheter # Bowel Movements 10 - Physical Exam Head: Positive for: Atraumatic Pupils: Positive for: PERRL Extroacular Muscles: Positive for: EOMI Conjunctiva: Positive for: Normal Mouth: Positive for: Moist Mucous Membranes Neck: Positive for: Normal Range of Motion Respiratory/Chest: Positive for: Good Air Exchange, Decreased Breath Sounds, Tachypneic. Negative for: Clear to Auscultation, Respiratory Distress, Accessory Muscle Use, Tender to Palpation Cardiovascular: Positive for: Regular Rate and Rhythm, Normal S1, S2. Negative for: Murmurs Abdomen: Positive for: Normal Bowel Sounds. Negative for: Tenderness, Rebound, Guarding Upper Extremity: Positive for: Normal ROM Lower Extremity: Positive for: Normal Inspection. Negative for: Tenderness, Deformity Neurological: Positive for: GCS=15, CN II-XII Intact, Speech Normal Skin: Positive for: Warm, Dry, Normal Color Psychiatric: Positive for: Alert, Oriented x 3 Other physical findings (Free Text): drowsy - Medications Active Medications: Active Medications Generic Name Dose Route Start Last Admin Trade Name Raviq PRN Reason Stop Dose Admin Cefepime HCl 1 gm in 100 mls @ 100 mls/hr 06/07/18 10:00 06/07/18 10:46 Maxipime 1gm IVPB 100 mls/hr Q12 TAZ Administration Protocol Sodium Chloride 1,000 mls @ 150 mls/hr 06/07/18 08:30 06/07/18 10:48 Sodium Chloride 0.9% IV 150 mls/hr .[id number] TAZ Administration Levalbuterol HCl 1.25 mg 06/07/18 02:00 06/07/18 08:20 Xopenex IH 1.25 mg [id number] TAZ Administration Prednisone 20 mg 06/07/18 11:15 Prednisone Tab PO DAILY TAZ - Patient Studies Lab Studies: Lab Studies 06/07/18 06/07/18 06/07/18 Range/Units 08:20 06:40 06:40 WBC (4.5-11.0) 10^3/ul RBC (3.5-6.1) 10^6/uL Hgb (12.0-16.0) g/dL Hct (36.0-48.0) % MCV (80.0-105.0) fl MCH (25.0-35.0) pg MCHC (31.0-37.0) g/dl RDW (11.5-14.5) % Plt Count (120.0-450.0) 10^3/uL MPV (7.0-11.0) fl [place] % (Auto) (1.0-6.0) % Eos % (Auto) (1.5-5.0) % Baso % (Auto) (0.0-3.0) % [place] # (Auto) (0.1-0.6) Eos # (Auto) (0.0-0.7) Baso # (Auto) (0.0-2.0) K/mm3 Neutrophils % (Manual) (50.0-70.0) % Band Neutrophils % (0-2) % Lymphocytes % (Manual) (22.0-35.0) % Monocytes % (Manual) (1.0-6.0) % Metamyelocytes % % Myelocytes % % PT 14.0 H (9.4-12.5) SECONDS INR 1.21 APTT 23.8 L (25.1-36.5) Seconds pO2 (30-55) mm/Hg VBG pH (7.32-7.43) VBG pCO2 (40-60) VBG HCO3 (21-28) mmol/l VBG Total CO2 (22-28) mmol.L VBG O2 Sat (Calc) (40-65) % VBG Base Excess (0.0-2.0) mmol/L VBG Potassium (3.6-5.2) mmol/L Sodium 140 (132-148) mmol/L Chloride 107 (98-107) mmol/L Glucose (65-105) mg/dl Lactate (0.7-2.1) mmol/L FiO2 % Potassium 5.3 H (3.6-5.0) mmol/L Carbon Dioxide 19 L (21-33) mmol/L Anion Gap 19 (10-20) BUN 115 H (7-21) mg/dL Creatinine 3.4 H (0.7-1.2) mg/dl Est GFR ( Amer) 17 Est GFR (Non-Af Amer) 14 Random Glucose 109 (70-110) mg/dL Lactic Acid 1.5 (0.7-2.1) mmol/L Calcium 8.0 L (8.4-10.5) mg/dL Phosphorus 6.4 H (2.5-4.5) mg/dL Magnesium 3.0 H (1.7-2.2) mg/dL Total Bilirubin 1.6 H (0.2-1.3) mg/dL AST 277 H (14-36) U/L ALT 48 (7-56) U/L Alkaline Phosphatase 497 H (38-126) U/L Total Protein 5.6 L (5.8-8.3) g/dL Albumin 2.8 L (3.0-4.8) g/dL Globulin 2.8 gm/dL Albumin/Globulin Ratio 1.0 L (1.1-1.8) Venous Blood Potassium (3.6-5.2) mmol/L Blood Type Confirm 06/07/18 06/06/18 06/06/18 Range/Units 06:40 23:45 18:30 WBC 35.0 H* (4.5-11.0) 10^3/ul RBC 3.77 (3.5-6.1) 10^6/uL Hgb 8.7 L (12.0-16.0) g/dL Hct 28.2 L (36.0-48.0) % MCV 74.8 L (80.0-105.0) fl MCH 23.1 L (25.0-35.0) pg MCHC 30.9 L (31.0-37.0) g/dl RDW 17.7 H (11.5-14.5) % Plt Count 217 (120.0-450.0) 10^3/uL MPV 9.5 (7.0-11.0) fl [place] % (Auto) 1.6 (1.0-6.0) % Eos % (Auto) 0.5 L (1.5-5.0) % Baso % (Auto) 0.1 (0.0-3.0) % [place] # (Auto) 0.6 (0.1-0.6) Eos # (Auto) 0.2 (0.0-0.7) Baso # (Auto) 0.03 (0.0-2.0) K/mm3 Neutrophils % (Manual) 89 H (50.0-70.0) % Band Neutrophils % 3 H (0-2) % Lymphocytes % (Manual) 4 L (22.0-35.0) % Monocytes % (Manual) 1 (1.0-6.0) % Metamyelocytes % 2 % Myelocytes % 1 % PT (9.4-12.5) SECONDS INR APTT (25.1-36.5) Seconds pO2 38 (30-55) mm/Hg VBG pH 7.31 L (7.32-7.43) VBG pCO2 36.0 L (40-60) VBG HCO3 18.1 L (21-28) mmol/l VBG Total CO2 19.2 L (22-28) mmol.L VBG O2 Sat (Calc) 68.9 H (40-65) % VBG Base Excess -7.4 L (0.0-2.0) mmol/L VBG Potassium 5.7 H (3.6-5.2) mmol/L Sodium 138 135.0 (132-148) mmol/L Chloride 106 107.0 (98-107) mmol/L Glucose 88 (65-105) mg/dl Lactate 3.7 H (0.7-2.1) mmol/L FiO2 21.0 % Potassium 5.9 H* (3.6-5.0) mmol/L Carbon Dioxide 20 L (21-33) mmol/L Anion Gap 17 (10-20) BUN 121 H* (7-21) mg/dL Creatinine 2.9 H (0.7-1.2) mg/dl Est GFR ( Amer) 20 Est GFR (Non-Af Amer) 16 Random Glucose 112 H (70-110) mg/dL Lactic Acid (0.7-2.1) mmol/L Calcium 7.9 L (8.4-10.5) mg/dL Phosphorus (2.5-4.5) mg/dL Magnesium (1.7-2.2) mg/dL Total Bilirubin (0.2-1.3) mg/dL AST (14-36) U/L ALT (7-56) U/L Alkaline Phosphatase (38-126) U/L Total Protein (5.8-8.3) g/dL Albumin (3.0-4.8) g/dL Globulin gm/dL Albumin/Globulin Ratio (1.1-1.8) Venous Blood Potassium 5.7 H (3.6-5.2) mmol/L Blood Type Confirm 06/06/18 Range/Units 16:53 WBC (4.5-11.0) 10^3/ul RBC (3.5-6.1) 10^6/uL Hgb (12.0-16.0) g/dL Hct (36.0-48.0) % MCV (80.0-105.0) fl MCH (25.0-35.0) pg MCHC (31.0-37.0) g/dl RDW (11.5-14.5) % Plt Count (120.0-450.0) 10^3/uL MPV (7.0-11.0) fl [place] % (Auto) (1.0-6.0) % Eos % (Auto) (1.5-5.0) % Baso % (Auto) (0.0-3.0) % [place] # (Auto) (0.1-0.6) Eos # (Auto) (0.0-0.7) Baso # (Auto) (0.0-2.0) K/mm3 Neutrophils % (Manual) (50.0-70.0) % Band Neutrophils % (0-2) % Lymphocytes % (Manual) (22.0-35.0) % Monocytes % (Manual) (1.0-6.0) % Metamyelocytes % % Myelocytes % % PT (9.4-12.5) SECONDS INR APTT (25.1-36.5) Seconds pO2 (30-55) mm/Hg VBG pH (7.32-7.43) VBG pCO2 (40-60) VBG HCO3 (21-28) mmol/l VBG Total CO2 (22-28) mmol.L VBG O2 Sat (Calc) (40-65) % VBG Base Excess (0.0-2.0) mmol/L VBG Potassium (3.6-5.2) mmol/L Sodium (132-148) mmol/L Chloride (98-107) mmol/L Glucose (65-105) mg/dl Lactate (0.7-2.1) mmol/L FiO2 % Potassium (3.6-5.0) mmol/L Carbon Dioxide (21-33) mmol/L Anion Gap (10-20) BUN (7-21) mg/dL Creatinine (0.7-1.2) mg/dl Est GFR ( Amer) Est GFR (Non-Af Amer) Random Glucose (70-110) mg/dL Lactic Acid (0.7-2.1) mmol/L Calcium (8.4-10.5) mg/dL Phosphorus (2.5-4.5) mg/dL Magnesium (1.7-2.2) mg/dL Total Bilirubin (0.2-1.3) mg/dL AST (14-36) U/L ALT (7-56) U/L Alkaline Phosphatase (38-126) U/L Total Protein (5.8-8.3) g/dL Albumin (3.0-4.8) g/dL Globulin gm/dL Albumin/Globulin Ratio (1.1-1.8) Venous Blood Potassium (3.6-5.2) mmol/L Blood Type Confirm O POSITIVE Laboratory Results - last 24 hr 06/06/18 06/06/18 06/06/18 16:53 18:30 23:45 WBC RBC Hgb Hct MCV MCH MCHC RDW Plt Count MPV [place] % (Auto) Eos % (Auto) Baso % (Auto) [place] # (Auto) Eos # (Auto) Baso # (Auto) Neutrophils % (Manual) Band Neutrophils % Lymphocytes % (Manual) Monocytes % (Manual) Metamyelocytes % Myelocytes % PT INR APTT pO2 38 VBG pH 7.31 L VBG pCO2 36.0 L VBG HCO3 18.1 L VBG Total CO2 19.2 L VBG O2 Sat (Calc) 68.9 H VBG Base Excess -7.4 L VBG Potassium 5.7 H Sodium 135.0 138 Chloride 107.0 106 Glucose 88 Lactate 3.7 H FiO2 21.0 Potassium 5.9 H* Carbon Dioxide 20 L Anion Gap 17 BUN 121 H* Creatinine 2.9 H Est GFR ( Amer) 20 Est GFR (Non-Af Amer) 16 Random Glucose 112 H Lactic Acid Calcium 7.9 L Phosphorus Magnesium Total Bilirubin AST ALT Alkaline Phosphatase Total Protein Albumin Globulin Albumin/Globulin Ratio Venous Blood Potassium 5.7 H Blood Type Confirm O POSITIVE 06/07/18 06/07/18 06/07/18 06:40 06:40 06:40 WBC 35.0 H* RBC 3.77 Hgb 8.7 L Hct 28.2 L MCV 74.8 L MCH 23.1 L MCHC 30.9 L RDW 17.7 H Plt Count 217 MPV 9.5 [place] % (Auto) 1.6 Eos % (Auto) 0.5 L Baso % (Auto) 0.1 [place] # (Auto) 0.6 Eos # (Auto) 0.2 Baso # (Auto) 0.03 Neutrophils % (Manual) 89 H Band Neutrophils % 3 H Lymphocytes % (Manual) 4 L Monocytes % (Manual) 1 Metamyelocytes % 2 Myelocytes % 1 PT 14.0 H INR 1.21 APTT 23.8 L pO2 VBG pH VBG pCO2 VBG HCO3 VBG Total CO2 VBG O2 Sat (Calc) VBG Base Excess VBG Potassium Sodium 140 Chloride 107 Glucose Lactate FiO2 Potassium 5.3 H Carbon Dioxide 19 L Anion Gap 19 BUN 115 H Creatinine 3.4 H Est GFR ( Amer) 17 Est GFR (Non-Af Amer) 14 Random Glucose 109 Lactic Acid Calcium 8.0 L Phosphorus 6.4 H Magnesium 3.0 H Total Bilirubin 1.6 H AST 277 H ALT 48 Alkaline Phosphatase 497 H Total Protein 5.6 L Albumin 2.8 L Globulin 2.8 Albumin/Globulin Ratio 1.0 L Venous Blood Potassium Blood Type Confirm 06/07/18 08:20 WBC RBC Hgb Hct MCV MCH MCHC RDW Plt Count MPV [place] % (Auto) Eos % (Auto) Baso % (Auto) [place] # (Auto) Eos # (Auto) Baso # (Auto) Neutrophils % (Manual) Band Neutrophils % Lymphocytes % (Manual) Monocytes % (Manual) Metamyelocytes % Myelocytes % PT INR APTT pO2 VBG pH VBG pCO2 VBG HCO3 VBG Total CO2 VBG O2 Sat (Calc) VBG Base Excess VBG Potassium Sodium Chloride Glucose Lactate FiO2 Potassium Carbon Dioxide Anion Gap BUN Creatinine Est GFR ( Amer) Est GFR (Non-Af Amer) Random Glucose Lactic Acid 1.5 Calcium Phosphorus Magnesium Total Bilirubin AST ALT Alkaline Phosphatase Total Protein Albumin Globulin Albumin/Globulin Ratio Venous Blood Potassium Blood Type Confirm Review of Systems - Review of Systems All systems: reviewed and no additional remarkable complaints except Review of Systems: as per HPI Critical Care Progress Note - Nutrition Nutrition: Nutrition Category Date Time Status Heart Healthy Diet [DIET] Diets 06/07/18 Lunch Ordered Assessment/Plan - Assessment and Plan (Free Text) Assessment: 62 year old female with PMH COPD (not on home O2), breast cancer with mets s/p chemo/radiation (08/2017) and left lumpectomy, CKD (baseline Cr 2.6), HTN, bipolar disorder, depression, HLD, gout, presents to ICU for leukocytosis, lactic acidosis, MARILYN on CKD, dehydration. Patient was on home prednisone 20 mg PO BID for past 7 days. 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 Will start PO diet today: Neuro: AAOx4. mildly drowsy. Monitor Cardio: BP in 100s/70s. HR 80s, NSR. NS @150 Echo 05/27/18 shows normal EF. normal valve function, mild TR. Hx of HTN. hold home irbesartan and bystolic in setting of low BP. Monitor Pulm: hx of COPD (not on home O2). as per son, patient uses ventolin inhaler at home. Never a smoker. Verified with [facility] pharmacy, patient was recently sent home on prednisone 20 mg PO BID (from recent [facility] admission on 06/01/18 - patient was on IV steroids in hospital). Xopenex prn, Prednisone 20 mg PO daily, will taper. On 2-3L NC, saturating well. CT chest shows moderate size right sided pleural effusion. Nodularity in both lung, indeterminate for malignancy, largest nodule is 1.3 cm (similar findings on chest CT on 05/2018). Mild diffuse subcutaneous edema in the lower abdomen and pelvis. Liver is heterogenous in appearance and appears to contain multiple mets. GI: will start heart healthy diet. Protonix. Renal: BUN/Cr 19/3.4 (baseline Cr 2.4) IVF @ 150 Replace lytes, maintain euvolemia. Monitor ID: afebrile, + leukocytosis (likely steroid induced), elevated procal 6.38 lactic acid on admission 3.3. LA 1.5 this AM. CXR shows small right sided pleural effusion. stable cardiomegaly. CT chest shows moderate size right sided pleural effusion. Nodularity in both lung, indeterminate for malignancy, largest nodule is 1.3 cm (similar findings on chest CT on 05/2018). UA neg nitrate, LE. many bacteria, 1-3 wbcs. f/u blood and urine cultures. Port-a-cath placed 05/29/[address] Pino, flushing well. On Cefepime and Vanco ID on board. Heme: Hgb 8.7, stable. plts normal. Monitor. DVT ppx: scds GI ppx: protonix Case seen and discussed with Dr Alvarado. Iris aBtes, PGY2 <Deion Alvarado - Last Filed: 06/07/18 18:17> CCU Objective - Vital Signs / Intake & Output Vital Signs (Last 4 hours): Vital Signs Temp 06/07/18 16:00 98.5 F Intake and Output (Last 8hrs): Intake & Output 06/07/18 06/07/18 06/07/18 06:59 14:59 22:59 Intake Total 1420 Output Total 400 Balance 1020 Intake: IV 1220 Right Femoral 1220 Oral 200 Output: Urine 400 2-way Urethral 400 Other: # Bowel Movements 10 - Medications Active Medications: Active Medications Generic Name Dose Route Start Last Admin Trade Name Raviq PRN Reason Stop Dose Admin Benztropine Mesylate 1 mg 06/07/18 18:00 06/07/18 18:12 Cogentin PO 1 mg QPM TAZ Administration Clonazepam 0.5 mg 06/07/18 18:00 06/07/18 17:31 Klonopin PO 0.5 mg BID TAZ Administration Protocol Sodium Chloride 1,000 mls @ 150 mls/hr 06/07/18 08:30 06/07/18 10:48 Sodium Chloride 0.9% IV 150 mls/hr .[id number] TAZ Administration Cefepime HCl 1 gm in 100 mls @ 100 mls/hr 06/08/18 10:00 Maxipime 1gm IVPB DAILY TAZ Protocol Levalbuterol HCl 1.25 mg 06/07/18 02:00 06/07/18 13:52 Xopenex IH 1.25 mg [id number] TAZ Administration Olanzapine 20 mg 06/07/18 15:30 06/07/18 16:40 Zyprexa PO 20 mg DAILY TAZ Administration Pantoprazole Sodium 40 mg 06/08/18 06:00 Protonix Ec Tab PO 0600 TAZ Prednisone 20 mg 06/07/18 11:15 06/07/18 14:14 Prednisone Tab PO 20 mg DAILY TAZ Administration Trazodone HCl 50 mg 06/07/18 22:00 Desyrel PO HS TAZ - Patient Studies Lab Studies: Lab Studies 06/07/18 06/07/18 06/07/18 Range/Units 13:15 08:20 06:40 WBC (4.5-11.0) 10^3/ul RBC (3.5-6.1) 10^6/uL Hgb (12.0-16.0) g/dL Hct (36.0-48.0) % MCV (80.0-105.0) fl MCH (25.0-35.0) pg MCHC (31.0-37.0) g/dl RDW (11.5-14.5) % Plt Count (120.0-450.0) 10^3/uL MPV (7.0-11.0) fl [place] % (Auto) (1.0-6.0) % Eos % (Auto) (1.5-5.0) % Baso % (Auto) (0.0-3.0) % [place] # (Auto) (0.1-0.6) Eos # (Auto) (0.0-0.7) Baso # (Auto) (0.0-2.0) K/mm3 Neutrophils % (Manual) (50.0-70.0) % Band Neutrophils % (0-2) % Lymphocytes % (Manual) (22.0-35.0) % Monocytes % (Manual) (1.0-6.0) % Metamyelocytes % % Myelocytes % % PT (9.4-12.5) SECONDS INR APTT (25.1-36.5) Seconds pO2 (30-55) mm/Hg VBG pH (7.32-7.43) VBG pCO2 (40-60) VBG HCO3 (21-28) mmol/l VBG Total CO2 (22-28) mmol.L VBG O2 Sat (Calc) (40-65) % VBG Base Excess (0.0-2.0) mmol/L VBG Potassium (3.6-5.2) mmol/L Sodium 140 (132-148) mmol/L Chloride 107 (98-107) mmol/L Glucose (65-105) mg/dl Lactate (0.7-2.1) mmol/L FiO2 % Potassium 5.3 H (3.6-5.0) mmol/L Carbon Dioxide 19 L (21-33) mmol/L Anion Gap 19 (10-20) BUN 115 H (7-21) mg/dL Creatinine 3.4 H (0.7-1.2) mg/dl Est GFR ( Amer) 17 Est GFR (Non-Af Amer) 14 Random Glucose 109 (70-110) mg/dL Lactic Acid 1.5 (0.7-2.1) mmol/L Calcium 8.0 L (8.4-10.5) mg/dL Phosphorus 6.4 H (2.5-4.5) mg/dL Magnesium 3.0 H (1.7-2.2) mg/dL Total Bilirubin 1.6 H (0.2-1.3) mg/dL AST 277 H (14-36) U/L ALT 48 (7-56) U/L Alkaline Phosphatase 497 H (38-126) U/L Total Protein 5.6 L (5.8-8.3) g/dL Albumin 2.8 L (3.0-4.8) g/dL Globulin 2.8 gm/dL Albumin/Globulin Ratio 1.0 L (1.1-1.8) Procalcitonin (0.19-0.49) NG/ML Venous Blood Potassium (3.6-5.2) mmol/L Random Vancomycin 19.0 L (20-40) ug/mL 06/07/18 06/07/18 06/06/18 Range/Units 06:40 06:40 23:45 WBC 35.0 H* (4.5-11.0) 10^3/ul RBC 3.77 (3.5-6.1) 10^6/uL Hgb 8.7 L (12.0-16.0) g/dL Hct 28.2 L (36.0-48.0) % MCV 74.8 L (80.0-105.0) fl MCH 23.1 L (25.0-35.0) pg MCHC 30.9 L (31.0-37.0) g/dl RDW 17.7 H (11.5-14.5) % Plt Count 217 (120.0-450.0) 10^3/uL MPV 9.5 (7.0-11.0) fl [place] % (Auto) 1.6 (1.0-6.0) % Eos % (Auto) 0.5 L (1.5-5.0) % Baso % (Auto) 0.1 (0.0-3.0) % [place] # (Auto) 0.6 (0.1-0.6) Eos # (Auto) 0.2 (0.0-0.7) Baso # (Auto) 0.03 (0.0-2.0) K/mm3 Neutrophils % (Manual) 89 H (50.0-70.0) % Band Neutrophils % 3 H (0-2) % Lymphocytes % (Manual) 4 L (22.0-35.0) % Monocytes % (Manual) 1 (1.0-6.0) % Metamyelocytes % 2 % Myelocytes % 1 % PT 14.0 H (9.4-12.5) SECONDS INR 1.21 APTT 23.8 L (25.1-36.5) Seconds pO2 (30-55) mm/Hg VBG pH (7.32-7.43) VBG pCO2 (40-60) VBG HCO3 (21-28) mmol/l VBG Total CO2 (22-28) mmol.L VBG O2 Sat (Calc) (40-65) % VBG Base Excess (0.0-2.0) mmol/L VBG Potassium (3.6-5.2) mmol/L Sodium 138 (132-148) mmol/L Chloride 106 (98-107) mmol/L Glucose (65-105) mg/dl Lactate (0.7-2.1) mmol/L FiO2 % Potassium 5.9 H* (3.6-5.0) mmol/L Carbon Dioxide 20 L (21-33) mmol/L Anion Gap 17 (10-20) BUN 121 H* (7-21) mg/dL Creatinine 2.9 H (0.7-1.2) mg/dl Est GFR ( Amer) 20 Est GFR (Non-Af Amer) 16 Random Glucose 112 H (70-110) mg/dL Lactic Acid (0.7-2.1) mmol/L Calcium 7.9 L (8.4-10.5) mg/dL Phosphorus (2.5-4.5) mg/dL Magnesium (1.7-2.2) mg/dL Total Bilirubin (0.2-1.3) mg/dL AST (14-36) U/L ALT (7-56) U/L Alkaline Phosphatase (38-126) U/L Total Protein (5.8-8.3) g/dL Albumin (3.0-4.8) g/dL Globulin gm/dL Albumin/Globulin Ratio (1.1-1.8) Procalcitonin (0.19-0.49) NG/ML Venous Blood Potassium (3.6-5.2) mmol/L Random Vancomycin (20-40) ug/mL 06/06/18 06/06/18 Range/Units 18:45 18:30 WBC (4.5-11.0) 10^3/ul RBC (3.5-6.1) 10^6/uL Hgb (12.0-16.0) g/dL Hct (36.0-48.0) % MCV (80.0-105.0) fl MCH (25.0-35.0) pg MCHC (31.0-37.0) g/dl RDW (11.5-14.5) % Plt Count (120.0-450.0) 10^3/uL MPV (7.0-11.0) fl [place] % (Auto) (1.0-6.0) % Eos % (Auto) (1.5-5.0) % Baso % (Auto) (0.0-3.0) % [place] # (Auto) (0.1-0.6) Eos # (Auto) (0.0-0.7) Baso # (Auto) (0.0-2.0) K/mm3 Neutrophils % (Manual) (50.0-70.0) % Band Neutrophils % (0-2) % Lymphocytes % (Manual) (22.0-35.0) % Monocytes % (Manual) (1.0-6.0) % Metamyelocytes % % Myelocytes % % PT (9.4-12.5) SECONDS INR APTT (25.1-36.5) Seconds pO2 38 (30-55) mm/Hg VBG pH 7.31 L (7.32-7.43) VBG pCO2 36.0 L (40-60) VBG HCO3 18.1 L (21-28) mmol/l VBG Total CO2 19.2 L (22-28) mmol.L VBG O2 Sat (Calc) 68.9 H (40-65) % VBG Base Excess -7.4 L (0.0-2.0) mmol/L VBG Potassium 5.7 H (3.6-5.2) mmol/L Sodium 135.0 (132-148) mmol/L Chloride 107.0 (98-107) mmol/L Glucose 88 (65-105) mg/dl Lactate 3.7 H (0.7-2.1) mmol/L FiO2 21.0 % Potassium (3.6-5.0) mmol/L Carbon Dioxide (21-33) mmol/L Anion Gap (10-20) BUN (7-21) mg/dL Creatinine (0.7-1.2) mg/dl Est GFR ( Amer) Est GFR (Non-Af Amer) Random Glucose (70-110) mg/dL Lactic Acid (0.7-2.1) mmol/L Calcium (8.4-10.5) mg/dL Phosphorus (2.5-4.5) mg/dL Magnesium (1.7-2.2) mg/dL Total Bilirubin (0.2-1.3) mg/dL AST (14-36) U/L ALT (7-56) U/L Alkaline Phosphatase (38-126) U/L Total Protein (5.8-8.3) g/dL Albumin (3.0-4.8) g/dL Globulin gm/dL Albumin/Globulin Ratio (1.1-1.8) Procalcitonin 6.36 H (0.19-0.49) NG/ML Venous Blood Potassium 5.7 H (3.6-5.2) mmol/L Random Vancomycin (20-40) ug/mL Laboratory Results - last 24 hr 06/06/18 06/06/18 06/06/18 18:30 18:45 23:45 WBC RBC Hgb Hct MCV MCH MCHC RDW Plt Count MPV [place] % (Auto) Eos % (Auto) Baso % (Auto) [place] # (Auto) Eos # (Auto) Baso # (Auto) Neutrophils % (Manual) Band Neutrophils % Lymphocytes % (Manual) Monocytes % (Manual) Metamyelocytes % Myelocytes % PT INR APTT pO2 38 VBG pH 7.31 L VBG pCO2 36.0 L VBG HCO3 18.1 L VBG Total CO2 19.2 L VBG O2 Sat (Calc) 68.9 H VBG Base Excess -7.4 L VBG Potassium 5.7 H Sodium 135.0 138 Chloride 107.0 106 Glucose 88 Lactate 3.7 H FiO2 21.0 Potassium 5.9 H* Carbon Dioxide 20 L Anion Gap 17 BUN 121 H* Creatinine 2.9 H Est GFR ( Amer) 20 Est GFR (Non-Af Amer) 16 Random Glucose 112 H Lactic Acid Calcium 7.9 L Phosphorus Magnesium Total Bilirubin AST ALT Alkaline Phosphatase Total Protein Albumin Globulin Albumin/Globulin Ratio Procalcitonin 6.36 H Venous Blood Potassium 5.7 H Random Vancomycin 09/05/18 09/05/18 09/05/18 06:40 06:40 06:40 WBC 35.0 H* RBC 3.77 Hgb 8.7 L Hct 28.2 L MCV 74.8 L MCH 23.1 L MCHC 30.9 L RDW 17.7 H Plt Count 217 MPV 9.5 [place] % (Auto) 1.6 Eos % (Auto) 0.5 L Baso % (Auto) 0.1 [place] # (Auto) 0.6 Eos # (Auto) 0.2 Baso # (Auto) 0.03 Neutrophils % (Manual) 89 H Band Neutrophils % 3 H Lymphocytes % (Manual) 4 L Monocytes % (Manual) 1 Metamyelocytes % 2 Myelocytes % 1 PT 14.0 H INR 1.21 APTT 23.8 L pO2 VBG pH VBG pCO2 VBG HCO3 VBG Total CO2 VBG O2 Sat (Calc) VBG Base Excess VBG Potassium Sodium 140 Chloride 107 Glucose Lactate FiO2 Potassium 5.3 H Carbon Dioxide 19 L Anion Gap 19 BUN 115 H Creatinine 3.4 H Est GFR ( Amer) 17 Est GFR (Non-Af Amer) 14 Random Glucose 109 Lactic Acid Calcium 8.0 L Phosphorus 6.4 H Magnesium 3.0 H Total Bilirubin 1.6 H AST 277 H ALT 48 Alkaline Phosphatase 497 H Total Protein 5.6 L Albumin 2.8 L Globulin 2.8 Albumin/Globulin Ratio 1.0 L Procalcitonin Venous Blood Potassium Random Vancomycin 06/07/18 06/07/18 08:20 13:15 WBC RBC Hgb Hct MCV MCH MCHC RDW Plt Count MPV [place] % (Auto) Eos % (Auto) Baso % (Auto) [place] # (Auto) Eos # (Auto) Baso # (Auto) Neutrophils % (Manual) Band Neutrophils % Lymphocytes % (Manual) Monocytes % (Manual) Metamyelocytes % Myelocytes % PT INR APTT pO2 VBG pH VBG pCO2 VBG HCO3 VBG Total CO2 VBG O2 Sat (Calc) VBG Base Excess VBG Potassium Sodium Chloride Glucose Lactate FiO2 Potassium Carbon Dioxide Anion Gap BUN Creatinine Est GFR ( Amer) Est GFR (Non-Af Amer) Random Glucose Lactic Acid 1.5 Calcium Phosphorus Magnesium Total Bilirubin AST ALT Alkaline Phosphatase Total Protein Albumin Globulin Albumin/Globulin Ratio Procalcitonin Venous Blood Potassium Random Vancomycin 19.0 L Critical Care Progress Note - Nutrition Nutrition: Nutrition Category Date Time Status Heart Healthy Diet [DIET] Diets 06/07/18 Lunch Active Attending/Attestation - Attestation I have personally seen and examined this patient.: Yes I have fully participated in the care of the patient.: Yes I have reviewed all pertinent clinical information: Yes Notes (Text): 06/07/18 18:[address] Alvarado note
[2018-06-07 18:50] LABS: ALB/GLOB RATIO 0.9 (1.1-1.8); ALBUMIN 2.7 g/dL (3.0-4.8); CALCIUM 8.2 mg/dL (8.4-10.5)
--- NOTE | 2018-06-07 21:29 | CON ---
Copied To: Dee German MD Attending MD: Dee German MD DATE: 06/07/2018 REFERRING PHYSICIAN: Jessica Flores MD. REASON FOR CONSULTATION: Metastatic disease to lung, pleural effusion, shortness of breath. HISTORY OF PRESENT ILLNESS: This is a 62-year-old female known to me from previous admission, has a history of breast cancer in the past, recently suspected metastatic disease to the lungs, liver, status post liver biopsy, also has a Port catheter placed in, brought into emergency room with shortness of breath, acute renal failure, resuscitated with fluids. She is admitted to Intensive Care Unit, seen by abrasive grader helper, Dr. Flores, also seen by Oncology. Presently lying in the bed, without oxygen. Feels okay. Has dry cough. No hemoptysis, no hematemesis, no hematuria, no diarrhea. Does have a leg swelling. PAST MEDICAL HISTORY Suspected metastatic breast cancer involving the lungs and liver, obesity, may have sleep apnea syndrome, hypertension, gout, bipolar disorder, also has a history of radiation therapy to the breast tissue. ALLERGIES: TO POTASSIUM. SOCIAL HISTORY: Deny any active smoking. FAMILY HISTORY: No significant cardiopulmonary disease reported. MEDICATIONS: She is on Cogentin 1 mg, trazodone 50 mg at bedtime, Klonopin 0.5 mg twice a day, cefepime 1 g IV daily, Zyprexa 20 mg daily, prednisone 20 mg started, Protonix 40 mg daily, IV fluid normal saline 150 mL/hour, Xopenex 1.25 mg every 6 hours, Zyprexa 2.5 mg daily. REVIEW OF SYSTEMS: Sleepy, arousable. No headache. No rhinitis. Has dry cough. No chest pain. No nausea, no abdominal pain. No dysuria. Does have leg swelling. PHYSICAL EXAMINATION: GENERAL: Lying in the bed. VITAL SIGNS: Temperature is 98, heart rate is 92, respiratory rate is 20, blood pressure 122/99, pulse ox 100% on nasal cannula. HEENT: Moist mucous membrane. Crowded airway. NECK: Short thick neck. LUNGS: Have decreased breath sounds on the right lung. HEART: S1 and S2, tachycardic. ABDOMEN: Soft, nontender, no organomegaly. EXTREMITIES: Trace edema. NEUROLOGIC: Awake, alert, follows simple commands. LABORATORY DATA: Shows hemoglobin 8.7, hematocrit 28.2, WBC 35,000, platelet is 217. INR is 1.21. PTT is 24. VBG done yesterday show pH 7.31, pCO2 of 36, O2 is 38. Sodium 140, potassium 5.3, chloride 107, bicarbonate 19, BUN 115, creatinine is 3.4, calcium 8, phosphorus 6.4, magnesium 3, total bili 1.6, AST 227, ALT 48, alk phos is 497. Albumin is 2.8, procalcitonin 6.36. Urinalysis shows many bacteria, wbc's 1 to 3, random vanco level is 19. Has a CT of the chest, abdomen and pelvis done yesterday which shows multiple pulmonary nodules, left axillary adenopathy. Mild ascites and subcutaneous emphysema, small right pleural effusion. IMPRESSION AND PLAN: Probably metastatic breast cancer to the lungs and liver, presently with acute renal failure, small pleural effusion. Procalcitonin is positive. There may be pneumonia, cannot rule out sepsis. History of hypertension, bipolar disorder, chronic lung disease. There may be a component of sleep apnea syndrome, so I agree with the present treatment. Started on broad-spectrum antibiotics covering healthcare-associated organism. Nephrology followup. May need renal ultrasound. Pulmonary point of view, she is doing okay. We will continue supplemental oxygen. Keep head at [address] her on CPAP of water 5 cm, 30% oxygen while sleeping. Follow up labs in the morning. Thank you and we will follow with you. Dee German MD
[2018-06-08] MEDS: Sodium Chloride 0.9% 1,000 ML IV SCH ×2 (00:59→09:00)
--- NOTE | 2018-06-08 01:18 | CON ---
Copied To: Loreta Giron MD Attending MD: Loreta Giron MD DATE: 06/07/2018 REASON FOR CONSULTATION: Acute kidney injury, shortness of breath, lethargy. HISTORY OF PRESENTING ILLNESS: A 62-year-old lady was recently admitted to [facility] on 05/26. During that admission, the patient was seen by us because of acute kidney injury. Prior to that, she was admitted to [facility]. But, the patient signed out AMA out of both hospitals. During her last admission, her creatinine was 2.9 at the time of admission. The patient was hydrated. Her creatinine came down to 2.4. The patient signed out AMA. During that admission, the patient also had a liver biopsy. She has a history of bipolar disorder, hypertension, hyperlipidemia, left breast cancer status post chemotherapy, radiation therapy. As per the history, the last chemotherapy was in 08/2017. The patient denied any medication changes. The patient left the hospital on 06/02. She was brought back to the emergency room yesterday. At the direction of the oncologist because the patient was found to be lethargic, the patient reportedly poor appetite and she was also thought to have some shortness of breath or difficulty breathing in the oncologist's office. In the emergency room, the patient was found to have WBC count of 34,000 with 94% polys, also she was found to have potassium of 5.9, BUN of 121 and creatinine of 2.9. She was found to have a potassium of 6.3, BUN of 125 and a creatinine of 3.3. The patient was admitted to the ICU for possible sepsis, altered mental status. She was given IV fluids. She received 2 liters of fluids overnight. She also got a total of three doses of Kayexalate. She is currently lying in bed. She is arousable. She complains of some shortness of breath. She denies any pain anywhere. She denies any chest tightness. She denies any nausea or vomiting. She has remained afebrile. Blood pressure has been stable. Although blood pressure was low at the time of presentation and it did drop to as low as 78/49 overnight. Her 24-hour urine output has been only 400 mL. This morning, her potassium is 5.3, BUN is 115 and creatinine of 3.4. PAST MEDICAL AND SURGICAL HISTORY: Morbid obesity, bipolar disorder, hypertension, hyperlipidemia, history of gout, history of left breast cancer, history of chemotherapy and radiation therapy, chronic anemia, acute kidney injury, recent liver biopsy. FAMILY HISTORY: Father of occupational exposure to carcinogens, mother of bleeding secondary to uterine/ovarian cancer. SOCIAL HISTORY: No smoking, no alcohol use, no IV drug abuse. ALLERGIES: POTASSIUM. MEDICATIONS AT HOME: Trazodone 50 daily, prednisone 20 b.i.d., Zyprexa, Bystolic 10 b.i.d., Xopenex, irbesartan 150 b.i.d., Uloric, Klonopin, Pulmicort, Cogentin. REVIEW OF SYSTEMS: Is limited because the patient is not fully able to cooperative in systems review. All documented in history of presenting illness, rest unremarkable. PHYSICAL EXAMINATION: GENERAL: Obese elderly lady lying in bed. VITAL SIGNS: Blood pressure 122/99, heart rate 92, respiratory rate 32, temperature 98.5. HEENT: Normocephalic, atraumatic, positive pallor. NECK: Supple, no JVD. LUNGS: Bilateral equal entry, bilateral equal expansion, no rales appreciated anteriorly. CARDIAC: S1 and S2, regular rate and rhythm, no murmur, no rub. ABDOMEN: Obese, distended, soft, nontender, bowel sounds present. EXTREMITIES: Trace lower extremity edema. INTAKE AND OUTPUT: 1420/400. LABORATORY DATA: WBC 35, hemoglobin 8.7, hematocrit 28, platelets 217. Sodium 140, potassium 5.3, chloride 107, CO2 19, BUN 115, creatinine 3.4, glucose 109, calcium 8, phosphorus 6.4, magnesium 3, total bili 1.7, AST 277, ALT 48. Lactic acid 1.5. Urinalysis; yellow clear, pH 5.5, specific gravity greater than 1.030, protein trace, leukocyte esterase negative, urine eosinophils negative, urine sodium less than 5. Vancomycin random level 19. CURRENT MEDICATIONS: Cogentin, Desyrel, Klonopin, cefepime 1 g every 12, prednisone 20 daily, Protonix, sodium chloride at 150, Xopenex, Zyprexa. CT of the chest, abdomen and pelvis showing multiple pulmonary nodules ranging from 5-10 mm, unremarkable kidneys with no hydronephrosis, left axillary adenopathy, mild ascites and subcutaneous edema. Lower extremity ultrasound, no evidence of DVT. ASSESSMENT: 1. Acute kidney injury superimposed on chronic kidney disease? 2. Hyperkalemia secondary to acute kidney injury. 3. Leukocytosis, ? Related to steroids. 4. Hypotension. 5. Sepsis syndrome? 6. Hyperphosphatemia. 7. Elevated liver function tests. 8. Severe anemia with low iron saturation and elevated ferritin. 9. Metastatic breast cancer with multiple pulmonary nodules, axillary lymphadenopathy, liver nodules? PLAN: 1. Etiology of acute kidney injury is unclear at this time. The patient has not received any chemotherapy since 08/2017. Her renal parameters were normal in November. Since then, we have no data. We would recommend getting outpatient data from oncologist. 2. Hyperkalemia has been treated adequately. The patient received total of 60 g of Kayexalate. Currently the potassium is 5.3. Avoid further Kayexalate use. 3. The patient has progressive and worsening anemia. Her iron saturation was only 9%. Her ferritin is elevated at 1310. This is consistent with inflammation. Recommend checking stool occults x3 to rule out GI blood loss as the cause of acute kidney injury and hyperkalemia. 4. The patient has an elevated total bilirubin and LDH, need to consider hemolysis also in the etiology of her anemia, recommend checking haptoglobin, Cara test. 5. Check urine sodium, urine creatinine and urine osmolality. During her last admission, her urine sodium was less than 5, this was supporting intravascular volume depletion, therefore we would recommend continuation of IV fluids at the present time. 6. Avoid nephrotoxins. 7. Case is discussed with family members at bedside at length, case discussed with ICU residents at bedside at length. More than 35 minutes was spent in the care of this critically ill patient. Loreta Giron MD
[2018-06-08] MEDS: Levalbuterol 1.25 MG/3 ML Inhal Soln UD IH SCH ×4 (01:56→19:59)
--- NOTE | 2018-06-08 02:39 | PN ---
DATE: 06/07/2018 SUBJECTIVE: Patient is 62 years old, seen and examined. Seems to be more awake and alert, able to communicate. Still has shortness of breath. Looks pale. PHYSICAL EXAMINATION: VITAL SIGNS: She is afebrile, pulse 87, respiration 30, blood pressure 116/81. LUNGS: Bilateral few expiratory rhonchi. HEART: S1 and S2 audible. ABDOMEN: Soft, obese, nontender. No rebound. No guarding. NEUROLOGIC: She is awake, alert, oriented, able to communicate. LABORATORY EXAM: WBC 35, hemoglobin 8.7, hematocrit 28.2, platelets of 217. PT 14, INR 1.21. Chemistry: Sodium 138, potassium 5.4, chloride 106, CO2 19, BUN 119, creatinine 3.6, blood sugar of 124. Magnesium is 2.4. ASSESSMENT: 1. Acute renal failure. 2. Metastatic breast cancer. 3. Bipolar disorder. 4. Liver metastasis. 5. Hyperkalemia. PLAN: Currently, patient is on IV fluids. She has been started on her usual psych medication including trazodone, Klonopin. She is getting prednisone 20 mg daily. She is on cefepime 1 g every 24 hours. She is on Protonix. She is on IV fluid and ID input noted and appreciated. We will continue current antibiotics. She was given a dose of vancomycin. We will follow up her electrolytes . Jessica Flores MD
--- NOTE | 2018-06-08 05:19 | CON ---
Copied To: Dee Mar MD Attending MD: Dee Mar MD DATE: 06/07/2018 SERVICE: Cardiology. REASON FOR CONSULTATION: Cardiac evaluation, rule out congestive heart failure, shortness of breath. BRIEF CLINICAL HISTORY: This is a 62-year-old female with past medical history significant for metastatic breast CA who was recently discharged day before yesterday, came in after she went home feeling very weak, lethargic and short of breath, came to the Emergency Room, found to be with worsening renal insufficiency. Cardiology consult was called to rule out CHF. The patient denies any chest pain, denies any shortness of breath, denies any palpitation, currently in ICU. Son named Micah is at the bedside. PAST HISTORY: Significant for hypertension, gout, bipolar disorder, recently diagnosed breast CA, has a lumpectomy and chemotherapy as well as radiation, morbid obesity. The patient was recently admitted with increasing shortness of breath and acute renal failure and treated with IV fluid and recently discharged home, admitted weak, lethargic. ALLERGIES: ALLERGY TO POTASSIUM. CURRENT MEDICATIONS: The patient is taking trazodone 50 mg daily, prednisone 20 mg daily, clonazepam 2.5, Bystolic 10 mg daily, Xopenex 1.25 mg daily, irbesartan 150 mg daily, Uloric 80 mg daily, Pulmicort, Cogentin, albuterol. PREVIOUS CARDIAC WORKUP: As follows: The patient had recent echocardiography done on 05/27/2018, read by Dr. Sadler and that shows normal LV size, normal LV function. Left ventricular function is within normal limit, mild tricuspid regurgitation, calculated ejection fraction 81% and RV systolic pressure 20. No mitral regurgitation noted. The patient was recently admitted to the [facility] with signed out AMA, history of bipolar disorder, history of depression, history of hyperlipidemia, history of gout, history of left breast lumpectomy and breast CA with chemotherapy since 08/2017, history of COPD. REVIEW OF SYSTEMS: As per HPI. PHYSICAL EXAMINATION: VITAL SIGNS: As follows: Height of the patient 5 feet 4 inches, weight of the patient 275 pounds, body mass index 48 kg/m2. Rest of the vitals: Temperature afebrile, heart rate 89, blood pressure 130/80. HEENT: PERRLA. Extraocular muscles intact. NECK: Supple. No carotid bruits or thyromegaly. CHEST: Clear to auscultation. HEART: S1 and S2 regular. ABDOMEN: Soft. EXTREMITIES: Clubbing and cyanosis, negative. LABORATORY DATA: Blood workup as follows: WBC 35, hemoglobin 8.7, hematocrit 28.2, platelet count 217. Chemistry showed sodium 140, potassium 5.3, chloride 107, carbon dioxide 19, anion gap of 19, BUN 115, creatinine 3.4. IMPRESSION AND PLAN: This is a 62-year-old female with past medical history significant for morbid obesity, hypertension, chronic obstructive pulmonary disease, bipolar disorder, depression, hyperlipidemia, gout, left breast lumpectomy, breast cancer with chemotherapy since 08/2017, history of chronic renal insufficiency, recently discharged, readmitted with worsening lethargy, weakness, renal insufficiency . Recently, the patient had at [facility] [place] admitted V/Q lung as a low probability for pulmonary embolism dated 05/25/2018, also venous Doppler both leg was negative; history of large right popliteal cyst, 02/15/2017; history of normal myocardial perfusion study dated 11/15/2017, admitted with worsening renal insufficiency, weakness and lethargy. Recent echo 05/27/2018 shows normal left ventricular function, ejection fraction 80%, mild tricuspid regurgitation, right ventricular systolic pressure 20. No significant mitral regurgitation, history of stress test 11/15/2017 is essentially negative, admitted with shortness of breath. The patient is clinically not in failure. All these symptoms are most likely secondary to worsening renal insufficiency. Suggest panculture because the patient has elevated WBC, broad-spectrum antibiotic. Continue hydration, cautious; monitor electrolytes closely. We will follow with you. The patient is clinically not in failure, though the patient has significantly decreased hemoglobin and hematocrit. BNP is mildly elevated at 1420 but clinically not in failure. Discussed with the patient and the patient's son, Micah in length about the patient's condition. We will follow with you. Thank you, Dr. Flores, for providing us the opportunity in taking care of the patient, Leydi Strong. Agree with current medical care of IV fluids, monitor electrolytes, and broad spectrum antibiotic. Dee Mar MD
[2018-06-08] MEDS ORDERED: Pantoprazole 40 mg EC Tab PO SCH (06:00)
[2018-06-08 06:58] LABS: BASO # 0.01 K/mm3 (0.0-2.0); EOS # 0.3 (0.0-0.7); EOS % 0.8 % (1.5-5.0); GRAN # 29.62 (1.4-6.5); HEMOGLOBIN 8.1 g/dL (12.0-16.0); LYMPH # 1.5 (1.2-3.4); LYMPH % 4.7 % (22.0-35.0); MEAN CORPUSCULAR HEMOGLOBIN 23.3 pg (25.0-35.0); MONO # 0.5 (0.1-0.6); MONO % 1.5 % (1.0-6.0); RBC 3.48 10^6/uL (3.5-6.1)
[2018-06-08 07:05] LABS: ALBUMIN 2.6 g/dL (3.0-4.8); CALCIUM 8.1 mg/dL (8.4-10.5)
[2018-06-08 07:31] LABS: WHITE BLOOD COUNT 31.9 10^3/ul (4.5-11.0)
--- NOTE | 2018-06-08 07:35 | CP.PCM.PN ---
<Tesha Dodge - Last Filed: 06/08/18 15:39> Subjective - Date & Time of Evaluation Date of Evaluation: 06/08/18 Time of Evaluation: 08:15 - Subjective Subjective: [id number] ID Progress note for Dr. Humphrey Patient seen and examined at bedside. Nursing reported no acute events overnight and patient had 1 BM with no blood/melena and improving UO of 400cc. Patient was afebrile and mentation has slightly improved. This AM son was at bedside and patient reported she felt better and her breathing had improved. She denied any pain in her chest, cough, or abdominal pain. Patient was uncooperative with full ROS. Son at bedside reported patient did not have any acute complaints. Patient encouraged to be OOB to chair. Objective - Vital Signs/Intake and Output Vital Signs (last 24 hours): Temp Pulse Resp BP Pulse Ox 98.1 F 85 25 H 93/45 L 100 06/08/18 00:00 06/08/18 06:01 06/08/18 06:01 06/08/18 06:01 06/08/18 06:01 Intake and Output: 06/08/18 06/08/18 06:59 18:59 Intake Total 2100 Output Total 400 Balance 1700 - Medications Medications: Current Medications Benztropine Mesylate (Cogentin) 1 mg PO QPM [facility] Last Admin: 06/07/18 18:12 Dose: 1 mg Clonazepam (Klonopin) 0.5 mg PO BID TAZ PRN Reason: Protocol Last Admin: 06/07/18 17:31 Dose: 0.5 mg Sodium Chloride (Sodium Chloride 0.9%) 1,000 mls @ 150 mls/hr IV .Q6H40M [facility] Last Admin: 06/08/18 00:59 Dose: 150 mls/hr Cefepime HCl (Maxipime 1gm) 1 gm in 100 mls @ 100 mls/hr IVPB DAILY TAZ PRN Reason: Protocol Levalbuterol HCl (Xopenex) 1.25 mg IH [id number] [facility] Last Admin: 06/08/18 07:14 Dose: 1.25 mg Olanzapine (Zyprexa) 20 mg PO DAILY [facility] Last Admin: 06/07/18 16:40 Dose: 20 mg Pantoprazole Sodium (Protonix Ec Tab) 40 mg PO 0600 [facility] Last Admin: 06/08/18 07:00 Dose: 40 mg Prednisone (Prednisone Tab) 20 mg PO DAILY [facility] Last Admin: 06/07/18 14:14 Dose: 20 mg Trazodone HCl (Desyrel) 50 mg PO HS [facility] Last Admin: 06/07/18 23:19 Dose: 50 mg - Labs Labs: 06/08/18 06:30 06/08/18 06:30 PT 14.0 SECONDS (9.4-12.5) H 06/07/18 06:40 INR 1.21 06/07/18 06:40 APTT 23.8 Seconds (25.1-36.5) L 06/07/18 06:40 - Constitutional Appears: Chronically Ill, Other (obese) - Head Exam Head Exam: ATRAUMATIC, NORMAL INSPECTION, NORMOCEPHALIC - Eye Exam Eye Exam: EOMI, Normal appearance, PERRL. absent: Conjunctival injection, Scleral icterus Pupil Exam: NORMAL ACCOMODATION - ENT Exam ENT Exam: Mucous Membranes Moist - Respiratory Exam Respiratory Exam: Decreased Breath Sounds, NORMAL BREATHING PATTERN. absent: Accessory Muscle Use, Respiratory Distress - Cardiovascular Exam Cardiovascular Exam: REGULAR RHYTHM, +S1, +S2 - GI/Abdominal Exam GI & Abdominal Exam: Soft. absent: Firm, Guarding, Rigid, Tenderness - Rectal Exam Rectal Exam: Deferred - Neurological Exam Neurological Exam: Alert, Awake - Psychiatric Exam Psychiatric exam: Flat Affect - Skin Skin Exam: Dry, Intact Assessment and Plan - Assessment and Plan (Free Text) Assessment: 62yo female PMHx HTN, COPD, bipolar disorder, depression, hyperlipidemia, CKD Stage II, gout, breast cancer (dx 2016) with mets, s/p chemo/radiation and L lumpectomy was brought in from PMD office for worsening fatigue and SOB. Patient admitted to MICU for severe sepsis currently transferred to med/surg Plan: -sepsis likely secondary to HCAP -clinically improving; leukocytosis likely due to home steroid use (prednisone 20mg po bid) -CXR this AM unremarkable -LE u/s negative for DVT -WBC 31.9 this AM down from 35.0 -blood cx prelim negative x 2 -urine cx final negative -Cefepime 1gm daily [started 06/08] -Patient received 1 dose Vancomycin on 06/07 -UA neg nitrate, LE. many bacteria, 1-3 wbcs -CT Chest/abd/pelvis: multiple pulm nodules; L axially adenopathy; mild ascites and subq edema -continue current management as per primary medical team Discussed with Dr. Kam Dodge PGY3 <Iftikhar Humphrey - Last Filed: 06/08/18 20:16> Objective - Vital Signs/Intake and Output Vital Signs (last 24 hours): Temp Pulse Resp BP Pulse Ox 98.4 F 84 21 91/57 L 98 06/08/18 14:00 06/08/18 14:00 06/08/18 14:00 06/08/18 14:00 06/08/18 14:00 Intake and Output: 06/08/18 06/09/18 18:59 06:59 Intake Total 1290 Output Total 480 Balance 810 - Medications Medications: Current Medications Benztropine Mesylate (Cogentin) 1 mg PO QPM [facility] Last Admin: 06/08/18 18:57 Dose: Not Given Clonazepam (Klonopin) 0.5 mg PO BID TAZ PRN Reason: Protocol Last Admin: 06/08/18 18:57 Dose: Not Given Heparin Sodium (Porcine) (Heparin) 5,000 units SC Q12 TAZ PRN Reason: Protocol Sodium Chloride (Sodium Chloride 0.9%) 1,000 mls @ 150 mls/hr IV .Q6H40M [facility] Last Admin: 06/08/18 09:00 Dose: 150 mls/hr Cefepime HCl (Maxipime 1gm) 1 gm in 100 mls @ 100 mls/hr IVPB DAILY TAZ PRN Reason: Protocol Last Admin: 06/08/18 12:03 Dose: 100 mls/hr Levalbuterol HCl (Xopenex) 1.25 mg IH [id number] [facility] Last Admin: 06/08/18 19:59 Dose: 1.25 mg Olanzapine (Zyprexa) 20 mg PO DAILY [facility] Last Admin: 06/08/18 10:12 Dose: 20 mg Pantoprazole Sodium (Protonix Ec Tab) 20 mg PO 0600 [facility] Prednisone (Prednisone Tab) 10 mg PO DAILY [facility] Tramadol/Acetaminophen (Ultracet 37.5/325 Mg) 1 tab PO Q6H PRN PRN Reason: Pain, moderate (4-7) Trazodone HCl (Desyrel) 50 mg PO HS [facility] Last Admin: 06/07/18 23:19 Dose: 50 mg - Labs Labs: 06/08/18 06:30 06/08/18 06:30 PT 14.0 SECONDS (9.4-12.5) H 06/07/18 06:40 INR 1.21 06/07/18 06:40 APTT 23.8 Seconds (25.1-36.5) L 06/07/18 06:40 Assessment and Plan - Assessment and Plan (Free Text) Plan: Infectious Diseases Attending Physician Addendum Patient seen and examined, discussed with medical record coder. I have reviewed the pertinent clinical information for the patient, including history of present illness, medical, personal and social histories, lab results and imaging findings. I agree with the above findings, assessment and plan. In addition, we will continue intermittent Vancomycin and Cefepime for this patient with probable sepsis from bilateral HCAP. Blood cx are negative x 1 day, PCT is elevated. Will Will continue to monitor clinically. Overall prognosis is poor.
[2018-06-08 07:49] LABS: CREATININE,RANDOM URINE 194 mg/dL
[2018-06-08 08:24] LABS: OSMOLALITY,URINE 415 mosm/kg (300-1000)
[2018-06-08] MEDS ORDERED: Darbepoetin Alfa 100 mcg/ml Inj SC ONE (08:40)
--- NOTE | 2018-06-08 09:09 | CP.PCM.CON ---
<KierstenmariamashanekaHugo - Last Filed: 06/08/18 11:47> History of Present Illness - History of Present Illness History of Present Illness: GI Fellow PGY4, consult note Leydi Strong is a 62F with hx of COPD, breast mets s/p chemoradiation and recent liver mass s/p biopsy, CKD, psychiatric disorder who presented with SOB. GI was consulted for abnormal BUN/Cr and possible GI bleed. Family is at bedside to help with history. Patient was recently discharged from hospital on prednisone for her breathing. Family denies any history of GI bleed. They report normal colonoscopy 1 year ago. Denies previous EGD. She does not take NSAIDs. No history of GERD. I discussed with nursing, patient had yellow BM on admission, now BM is brown. PMHx - see above. PSHx - breast lumpectomy FMHx - Denies stomach, liver, colon diseases. SocHx - Denies alcohol or smoking abuse. 12pt ROS neg except for above. Past Patient History - Infectious Disease Hx of Infectious Diseases: None - Past Social History Smoking Status: Never Smoked - CARDIAC Hx Hypertension: Yes - PULMONARY Hx Chronic Obstructive Pulmonary Disease (COPD): Yes - NEUROLOGICAL Hx Paralysis: No - HEENT Hx HEENT Problems: No - RENAL Hx Chronic Kidney Disease: Yes Hx Renal Failure: Yes Other/Comment: arf abnormal labs recently dx [facility] [place] - ENDOCRINE/METABOLIC Hx Endocrine Disorders: No - HEMATOLOGICAL/ONCOLOGICAL Hx Blood Transfusions: No Hx Blood Transfusion Reaction: No - INTEGUMENTARY Hx Dermatological Problems: Yes Other/Comment: rcw scar from pac removal 11/15/2017, left breast scar, thick hard toenails, hx r ft cellulitis - MUSCULOSKELETAL/RHEUMATOLOGICAL Hx Musculoskeletal Disorders: Yes - GASTROINTESTINAL Hx Gastrointestinal Disorders: Yes (obese) - GENITOURINARY/GYNECOLOGICAL Hx Reproductive Disorders: No - PSYCHIATRIC Hx Bipolar Disorder: Yes Hx Depression: Yes Hx Substance Use: No - SURGICAL HISTORY Other/Comment: L lumpectomy last chemo 2016 - ANESTHESIA Hx Anesthesia Reactions: No Hx Malignant Hyperthermia: No Meds Allergies/Adverse Reactions: Allergies Allergy/AdvReac Type Severity Reaction Status Date / Time potassium AdvReac Intermediate "FUNNY Verified 06/06/18 14:40 FEELING" - Medications Medications: Current Medications Benztropine Mesylate (Cogentin) 1 mg PO QPM [facility] Last Admin: 06/07/18 18:12 Dose: 1 mg Clonazepam (Klonopin) 0.5 mg PO BID [facility] PRN Reason: Protocol Last Admin: 06/07/18 17:31 Dose: 0.5 mg Sodium Chloride (Sodium Chloride 0.9%) 1,000 mls @ 150 mls/hr IV .Q6H40M [facility] Last Admin: 06/08/18 00:59 Dose: 150 mls/hr Cefepime HCl (Maxipime 1gm) 1 gm in 100 mls @ 100 mls/hr IVPB DAILY [facility] PRN Reason: Protocol Levalbuterol HCl (Xopenex) 1.25 mg IH [id number] [facility] Last Admin: 06/08/18 07:14 Dose: 1.25 mg Olanzapine (Zyprexa) 20 mg PO DAILY [facility] Last Admin: 06/07/18 16:40 Dose: 20 mg Pantoprazole Sodium (Protonix Ec Tab) 40 mg PO 0600 [facility] Last Admin: 06/08/18 07:00 Dose: 40 mg Prednisone (Prednisone Tab) 20 mg PO DAILY [facility] Last Admin: 06/07/18 14:14 Dose: 20 mg Trazodone HCl (Desyrel) 50 mg PO HS [facility] Last Admin: 06/07/18 23:19 Dose: 50 mg Physical Exam - Constitutional Appears: Well, No Acute Distress - Respiratory Exam Respiratory Exam: Prolonged Expiratory Phase, NORMAL BREATHING PATTERN - Cardiovascular Exam Cardiovascular Exam: REGULAR RHYTHM, +S1, +S2 - GI/Abdominal Exam GI & Abdominal Exam: Normal Bowel Sounds, Organomegaly, Soft. absent: Tenderness - Rectal Exam Rectal Exam: Deferred - Neurological Exam Neurological exam: Alert, CN II-XII Intact - Psychiatric Exam Psychiatric exam: Flat Affect - Skin Skin Exam: Dry, Normal Color Results - Vital Signs Recent Vital Signs: Last Vital Signs Temp 98.1 F 06/08/18 00:00 Pulse 85 06/08/18 06:01 Resp 25 H 06/08/18 06:01 BP 93/45 L 06/08/18 06:01 Pulse Ox 100 06/08/18 06:01 - Labs Result Diagrams: 06/08/18 06:30 06/08/18 06:30 Labs: Laboratory Results - last 24 hr 06/06/18 06/07/18 06/07/18 18:45 06:40 13:15 WBC RBC Hgb Hct MCV MCH MCHC RDW Plt Count MPV Gran % Lymph % (Auto) [place] % (Auto) Eos % (Auto) Baso % (Auto) Gran # Lymph # (Auto) [place] # (Auto) Eos # (Auto) Baso # (Auto) Neutrophils % (Manual) 89 H Band Neutrophils % 3 H Lymphocytes % (Manual) 4 L Monocytes % (Manual) 1 Metamyelocytes % 2 Myelocytes % 1 Sodium Potassium Chloride Carbon Dioxide Anion Gap BUN Creatinine Est GFR ( Amer) Est GFR (Non-Af Amer) Random Glucose Calcium Phosphorus Magnesium Total Bilirubin AST ALT Alkaline Phosphatase NT-Pro-B Natriuret Pep Total Protein Albumin Globulin Albumin/Globulin Ratio Triglycerides Cholesterol LDL Cholesterol Direct HDL Cholesterol Procalcitonin 6.36 H TSH 3rd Generation Urine Osmolality Ur Random Creatinine Ur Random Sodium Random Vancomycin 19.0 L DYLAN, Poly Interpret 06/07/18 06/08/18 06/08/18 18:32 06:00 06:30 WBC 31.9 H* RBC 3.48 L Hgb 8.1 L Hct 26.1 L MCV 75.0 L MCH 23.3 L MCHC 31.0 RDW 18.0 H Plt Count 188 MPV 10.0 Gran % 93.0 H Lymph % (Auto) 4.7 L [place] % (Auto) 1.5 Eos % (Auto) 0.8 L Baso % (Auto) 0.0 Gran # 29.62 H Lymph # (Auto) 1.5 [place] # (Auto) 0.5 Eos # (Auto) 0.3 Baso # (Auto) 0.01 Neutrophils % (Manual) Band Neutrophils % Lymphocytes % (Manual) Monocytes % (Manual) Metamyelocytes % Myelocytes % Sodium 138 Potassium 5.4 H Chloride 106 Carbon Dioxide 19 L Anion Gap 19 BUN 119 H Creatinine 3.6 H Est GFR ( Amer) 15 Est GFR (Non-Af Amer) 13 Random Glucose 124 H Calcium 8.2 L Phosphorus 6.4 H Magnesium 2.9 H Total Bilirubin 1.3 AST 258 H ALT 43 Alkaline Phosphatase 457 H NT-Pro-B Natriuret Pep Total Protein 5.6 L Albumin 2.7 L Globulin 2.9 Albumin/Globulin Ratio 0.9 L Triglycerides Cholesterol LDL Cholesterol Direct HDL Cholesterol Procalcitonin TSH 3rd Generation Urine Osmolality 415 Ur Random Creatinine 194 Ur Random Sodium < 5 Random Vancomycin DYLAN, Poly Interpret 06/08/18 06/08/18 06/08/18 06:30 06:30 07:45 WBC RBC Hgb Hct MCV MCH MCHC RDW Plt Count MPV Gran % Lymph % (Auto) [place] % (Auto) Eos % (Auto) Baso % (Auto) Gran # Lymph # (Auto) [place] # (Auto) Eos # (Auto) Baso # (Auto) Neutrophils % (Manual) Band Neutrophils % Lymphocytes % (Manual) Monocytes % (Manual) Metamyelocytes % Myelocytes % Sodium 138 Potassium 5.2 H Chloride 108 H Carbon Dioxide 19 L Anion Gap 17 BUN 120 H Creatinine 3.2 H Est GFR ( Amer) 18 Est GFR (Non-Af Amer) 15 Random Glucose 126 H Calcium 8.1 L Phosphorus 6.9 H Magnesium 2.9 H Total Bilirubin 1.1 AST 223 H ALT 44 Alkaline Phosphatase 423 H NT-Pro-B Natriuret Pep 1210 H Total Protein 5.4 L Albumin 2.6 L Globulin 2.8 Albumin/Globulin Ratio 1.0 L Triglycerides 295 H Cholesterol 93 L LDL Cholesterol Direct 30 HDL Cholesterol 24 L Procalcitonin TSH 3rd Generation 0.45 L Urine Osmolality Ur Random Creatinine Ur Random Sodium Random Vancomycin DYLAN, Poly Interpret Negative Assessment & Plan - Assessment and Plan (Free Text) Assessment: 62F with hx Breast Cancer and COPD recently placed on prednisone and we were consulted for elevated BUN/Cr and concern for GI bleed. #MARILYN on CKD - base line ~2.0 #COPD on prednisone #Breast cancer s/p chemoradiation #Psychiatric disorder #HTN PLAN: -No obvious GI bleed at this time. Hb slightly lower at 8.1 than previously. Elevated BUN/Cr most likely related to MARILYN and recent steroid use. -Continue to monitor for GI bleed. Hb in AM. -If Hb continues to fall without melena, must r/o other sources of bleed, i.e liver biopsy, etc. -CT a/p without contrast show enlarged liver, mild ascites. No obvious hematoma reported. -No planned endoscopic procedures at this time. -Continue PPI, half dose in setting of MARILYN and CKD -Liver biopsy pending -Continue care per ICU, nephrology, pulm. - Date & Time Date: 06/08/18 Time: 09:14 <Giovana Ham V - Last Filed: 06/09/18 23:59> Meds - Medications Medications: Current Medications Benztropine Mesylate (Cogentin) 0.5 mg PO HS [facility] Last Admin: 06/09/18 22:38 Dose: 0.5 mg Benztropine Mesylate (Cogentin) 0.5 mg PO BID [facility] Heparin Sodium (Porcine) (Heparin) 5,000 units SC Q12 [facility] PRN Reason: Protocol Last Admin: 06/09/18 22:33 Dose: 5,000 units Cefepime HCl (Maxipime 1gm) 1 gm in 100 mls @ 100 mls/hr IVPB DAILY [facility] PRN Reason: Protocol Last Admin: 06/09/18 10:14 Dose: 100 mls/hr Levalbuterol HCl (Xopenex) 1.25 mg IH [id number] [facility] Last Admin: 06/09/18 20:46 Dose: 1.25 mg Lorazepam (Ativan) 1 mg PO TID PRN; Protocol PRN Reason: anxiety/agitation Olanzapine (Zyprexa Zydis) 5 mg PO BID [facility] PRN Reason: Protocol Olanzapine (Zyprexa Zydis) 5 mg PO HS [facility] PRN Reason: Protocol Last Admin: 06/09/18 22:39 Dose: 5 mg Pantoprazole Sodium (Protonix Ec Tab) 20 mg PO 0600 [facility] Last Admin: 06/09/18 05:48 Dose: 20 mg Tramadol/Acetaminophen (Ultracet 37.5/325 Mg) 1 tab PO Q6H PRN PRN Reason: Pain, moderate (4-7) Results - Vital Signs Recent Vital Signs: Last Vital Signs Temp 99.5 F 06/09/18 18:45 Pulse 100 H 06/09/18 18:45 Resp 40 H 06/09/18 18:45 BP 110/63 06/09/18 18:45 Pulse Ox 96 06/09/18 18:43 - Labs Result Diagrams: 06/09/18 06:45 06/09/18 06:45 Labs: Laboratory Results - last 24 hr 06/09/18 06/09/18 06/09/18 06:45 06:45 06:45 WBC 31.4 H* RBC 3.47 L Hgb 7.9 L Hct 26.3 L MCV 75.8 L MCH 22.8 L MCHC 30.0 L RDW 18.0 H Plt Count 158 MPV 9.5 APTT 27.5 Sodium 141 Potassium 5.1 H Chloride 111 H Carbon Dioxide 17 L Anion Gap 18 BUN 120 H Creatinine 2.8 H Est GFR ( Amer) 21 Est GFR (Non-Af Amer) 17 Random Glucose 120 H Calcium 7.9 L Total Bilirubin 1.2 AST 221 H ALT 39 Alkaline Phosphatase 446 H Total Protein 5.1 L Albumin 2.5 L Globulin 2.6 Albumin/Globulin Ratio 1.0 L Blood Type Antibody Screen Crossmatch BBK History Checked 06/09/18 08:30 WBC RBC Hgb Hct MCV MCH MCHC RDW Plt Count MPV APTT Sodium Potassium Chloride Carbon Dioxide Anion Gap BUN Creatinine Est GFR ( Amer) Est GFR (Non-Af Amer) Random Glucose Calcium Total Bilirubin AST ALT Alkaline Phosphatase Total Protein Albumin Globulin Albumin/Globulin Ratio Blood Type O POSITIVE Antibody Screen Negative Crossmatch See Detail BBK History Checked Patient has bt Attending/Attestation - Attestation I have personally seen and examined this patient.: Yes I have fully participated in the care of the patient.: Yes I have reviewed all pertinent clinical information: Yes Notes (Text): This is an addendum to GI progress report dictated by the GI Fellow.The patient was seen and examined earlier. Medical records, lab studies, imagings were reviewed. Last 24 hours events reviewed. Agreed with the above treatment plan as outlined in GI Fellow 's notes with the addition of the following On examination abdomen soft No obvious source of GI blood loss CT done earlier was reviewed Follow-up hemoglobin hematocrit 06/09/18 23:51
--- NOTE | 2018-06-08 09:38 | RAD ---
Date of service: 06/08/2018 HISTORY: effusion COMPARISON: 06/06/2018 FINDINGS: LUNGS: There is some linear atelectasis at the right lung base. There is elevation of the right hemidiaphragm. PLEURA: No significant pleural effusion identified, no pneumothorax apparent. CARDIOVASCULAR: Mild cardiomegaly OSSEOUS STRUCTURES: No significant abnormalities. VISUALIZED UPPER ABDOMEN: Normal. OTHER FINDINGS: There is a right internal jugular Port-A-Cath that terminates in the SVC. IMPRESSION: No active disease.
[2018-06-08] MEDS: Cefepime 1gm in NS 100ml 1 GM/100 ML BAG IVPB SCH ×2 (10:14→12:03)
--- NOTE | 2018-06-08 10:56 | CP.CCUPN ---
<Mariel Cid - Last Filed: 06/08/18 11:31> CCU Subjective - Physician Review Subjective (Free Text): patient seen and examined this AM at bedside. NAEO per nursing. Patient is resting comfortably in bed. She denies headache, chest pain, SOB at rest, abdominal pain, and extremity pain. 06/08/18 10:53 CCU Objective - Vital Signs / Intake & Output Intake and Output (Last 8hrs): Intake & Output 06/07/18 06/08/18 06/08/18 22:59 06:59 14:59 Intake Total 2400 2100 Output Total 300 400 Balance 2100 1700 Weight 274 lb Intake: IV 2150 Right Femoral 2150 Oral 250 300 Other 1800 Output: Urine 300 400 2-way Urethral 300 400 Other: # Bowel Movements 3 - Physical Exam Head: Positive for: Atraumatic Pupils: Positive for: PERRL Extroacular Muscles: Positive for: EOMI Conjunctiva: Positive for: Normal Mouth: Positive for: Moist Mucous Membranes Neck: Positive for: Normal Range of Motion Respiratory/Chest: Positive for: Good Air Exchange, Decreased Breath Sounds, Tachypneic. Negative for: Clear to Auscultation, Respiratory Distress, Accessory Muscle Use, Tender to Palpation Cardiovascular: Positive for: Regular Rate and Rhythm, Normal S1, S2. Negative for: Murmurs Abdomen: Positive for: Normal Bowel Sounds. Negative for: Tenderness, Rebound, Guarding Upper Extremity: Positive for: Normal ROM Lower Extremity: Positive for: Normal Inspection. Negative for: Tenderness, Deformity Neurological: Positive for: GCS=15, CN II-XII Intact, Speech Normal Skin: Positive for: Warm, Dry, Normal Color Psychiatric: Positive for: Alert, Oriented x 3 - Medications Active Medications: Active Medications Generic Name Dose Route Start Last Admin Trade Name Freq PRN Reason Stop Dose Admin Benztropine Mesylate 1 mg 06/07/18 18:00 06/07/18 18:12 Cogentin PO 1 mg QPM TAZ Administration Clonazepam 0.5 mg 06/07/18 18:00 06/08/18 10:10 Klonopin PO 0.5 mg BID TAZ Administration Protocol Sodium Chloride 1,000 mls @ 150 mls/hr 06/07/18 08:30 06/08/18 00:59 Sodium Chloride 0.9% IV 150 mls/hr .[id number] TAZ Administration Cefepime HCl 1 gm in 100 mls @ 100 mls/hr 06/08/18 10:00 Maxipime 1gm IVPB DAILY [facility] Protocol Levalbuterol HCl 1.25 mg 06/07/18 02:00 06/08/18 07:14 Xopenex IH 1.25 mg [id number] TAZ Administration Olanzapine 20 mg 06/07/18 15:30 06/08/18 10:12 Zyprexa PO 20 mg DAILY TAZ Administration Pantoprazole Sodium 20 mg 06/08/18 09:35 Protonix Ec Tab PO 0600 TAZ Prednisone 20 mg 06/07/18 11:15 06/08/18 10:13 Prednisone Tab PO 20 mg DAILY TAZ Administration Trazodone HCl 50 mg 06/07/18 22:00 06/07/18 23:19 Desyrel PO 50 mg HS TAZ Administration - Patient Studies Lab Studies: Microbiology Studies 06/06/18 18:15 Blood Culture - Preliminary Blood NO GROWTH AFTER 24 HOURS 06/06/18 18:00 Blood Culture - Preliminary Blood NO GROWTH AFTER 24 HOURS Lab Studies 06/08/18 06/08/18 06/08/18 Range/Units 07:45 06:30 06:30 WBC (4.5-11.0) 10^3/ul RBC (3.5-6.1) 10^6/uL Hgb (12.0-16.0) g/dL Hct (36.0-48.0) % MCV (80.0-105.0) fl MCH (25.0-35.0) pg MCHC (31.0-37.0) g/dl RDW (11.5-14.5) % Plt Count (120.0-450.0) 10^3/uL MPV (7.0-11.0) fl Gran % (50.0-68.0) % Lymph % (Auto) (22.0-35.0) % Johnston % (Auto) (1.0-6.0) % Eos % (Auto) (1.5-5.0) % Baso % (Auto) (0.0-3.0) % Gran # (1.4-6.5) Lymph # (Auto) (1.2-3.4) Johnston # (Auto) (0.1-0.6) Eos # (Auto) (0.0-0.7) Baso # (Auto) (0.0-2.0) K/mm3 Neutrophils % (Manual) (50.0-70.0) % Band Neutrophils % (0-2) % Lymphocytes % (Manual) (22.0-35.0) % Monocytes % (Manual) (1.0-6.0) % Metamyelocytes % % Myelocytes % % Sodium (132-148) mmol/L Potassium (3.6-5.0) mmol/L Chloride (98-107) mmol/L Carbon Dioxide (21-33) mmol/L Anion Gap (10-20) BUN (7-21) mg/dL Creatinine (0.7-1.2) mg/dl Est GFR ( Amer) Est GFR (Non-Af Amer) Random Glucose (70-110) mg/dL Calcium (8.4-10.5) mg/dL Phosphorus (2.5-4.5) mg/dL Magnesium (1.7-2.2) mg/dL Total Bilirubin (0.2-1.3) mg/dL AST (14-36) U/L ALT (7-56) U/L Alkaline Phosphatase (38-126) U/L NT-Pro-B Natriuret Pep (0-450) pg/mL Total Protein (5.8-8.3) g/dL Albumin (3.0-4.8) g/dL Globulin gm/dL Albumin/Globulin Ratio (1.1-1.8) Triglycerides (35-160) mg/dL Cholesterol (130-200) mg/dL LDL Cholesterol Direct (0-129) mg/dL HDL Cholesterol (29-60) mg/dL Procalcitonin (0.19-0.49) NG/ML TSH 3rd Generation 0.45 L (0.46-4.68) mIU/mL Urine Osmolality (300-1000) mosm/kg Ur Random Creatinine mg/dL Ur Random Sodium meq/L Random Vancomycin 14.1 L (20-40) ug/mL DYLAN, Poly Interpret Negative (NEGATIVE) 06/08/18 06/08/18 06/08/18 Range/Units 06:30 06:30 06:00 WBC 31.9 H* (4.5-11.0) 10^3/ul RBC 3.48 L (3.5-6.1) 10^6/uL Hgb 8.1 L (12.0-16.0) g/dL Hct 26.1 L (36.0-48.0) % MCV 75.0 L (80.0-105.0) fl MCH 23.3 L (25.0-35.0) pg MCHC 31.0 (31.0-37.0) g/dl RDW 18.0 H (11.5-14.5) % Plt Count 188 (120.0-450.0) 10^3/uL MPV 10.0 (7.0-11.0) fl Gran % 93.0 H (50.0-68.0) % Lymph % (Auto) 4.7 L (22.0-35.0) % Johnston % (Auto) 1.5 (1.0-6.0) % Eos % (Auto) 0.8 L (1.5-5.0) % Baso % (Auto) 0.0 (0.0-3.0) % Gran # 29.62 H (1.4-6.5) Lymph # (Auto) 1.5 (1.2-3.4) Johnston # (Auto) 0.5 (0.1-0.6) Eos # (Auto) 0.3 (0.0-0.7) Baso # (Auto) 0.01 (0.0-2.0) K/mm3 Neutrophils % (Manual) (50.0-70.0) % Band Neutrophils % (0-2) % Lymphocytes % (Manual) (22.0-35.0) % Monocytes % (Manual) (1.0-6.0) % Metamyelocytes % % Myelocytes % % Sodium 138 (132-148) mmol/L Potassium 5.2 H (3.6-5.0) mmol/L Chloride 108 H (98-107) mmol/L Carbon Dioxide 19 L (21-33) mmol/L Anion Gap 17 (10-20) BUN 120 H (7-21) mg/dL Creatinine 3.2 H (0.7-1.2) mg/dl Est GFR ( Amer) 18 Est GFR (Non-Af Amer) 15 Random Glucose 126 H (70-110) mg/dL Calcium 8.1 L (8.4-10.5) mg/dL Phosphorus 6.9 H (2.5-4.5) mg/dL Magnesium 2.9 H (1.7-2.2) mg/dL Total Bilirubin 1.1 (0.2-1.3) mg/dL AST 223 H (14-36) U/L ALT 44 (7-56) U/L Alkaline Phosphatase 423 H (38-126) U/L NT-Pro-B Natriuret Pep 1210 H (0-450) pg/mL Total Protein 5.4 L (5.8-8.3) g/dL Albumin 2.6 L (3.0-4.8) g/dL Globulin 2.8 gm/dL Albumin/Globulin Ratio 1.0 L (1.1-1.8) Triglycerides 295 H (35-160) mg/dL Cholesterol 93 L (130-200) mg/dL LDL Cholesterol Direct 30 (0-129) mg/dL HDL Cholesterol 24 L (29-60) mg/dL Procalcitonin (0.19-0.49) NG/ML TSH 3rd Generation (0.46-4.68) mIU/mL Urine Osmolality 415 (300-1000) mosm/kg Ur Random Creatinine 194 mg/dL Ur Random Sodium < 5 meq/L Random Vancomycin (20-40) ug/mL DYLAN, Poly Interpret (NEGATIVE) 06/07/18 06/07/18 06/07/18 Range/Units 18:32 13:15 06:40 WBC (4.5-11.0) 10^3/ul RBC (3.5-6.1) 10^6/uL Hgb (12.0-16.0) g/dL Hct (36.0-48.0) % MCV (80.0-105.0) fl MCH (25.0-35.0) pg MCHC (31.0-37.0) g/dl RDW (11.5-14.5) % Plt Count (120.0-450.0) 10^3/uL MPV (7.0-11.0) fl Gran % (50.0-68.0) % Lymph % (Auto) (22.0-35.0) % Johnston % (Auto) (1.0-6.0) % Eos % (Auto) (1.5-5.0) % Baso % (Auto) (0.0-3.0) % Gran # (1.4-6.5) Lymph # (Auto) (1.2-3.4) Johnston # (Auto) (0.1-0.6) Eos # (Auto) (0.0-0.7) Baso # (Auto) (0.0-2.0) K/mm3 Neutrophils % (Manual) 89 H (50.0-70.0) % Band Neutrophils % 3 H (0-2) % Lymphocytes % (Manual) 4 L (22.0-35.0) % Monocytes % (Manual) 1 (1.0-6.0) % Metamyelocytes % 2 % Myelocytes % 1 % Sodium 138 (132-148) mmol/L Potassium 5.4 H (3.6-5.0) mmol/L Chloride 106 (98-107) mmol/L Carbon Dioxide 19 L (21-33) mmol/L Anion Gap 19 (10-20) BUN 119 H (7-21) mg/dL Creatinine 3.6 H (0.7-1.2) mg/dl Est GFR ( Amer) 15 Est GFR (Non-Af Amer) 13 Random Glucose 124 H (70-110) mg/dL Calcium 8.2 L (8.4-10.5) mg/dL Phosphorus 6.4 H (2.5-4.5) mg/dL Magnesium 2.9 H (1.7-2.2) mg/dL Total Bilirubin 1.3 (0.2-1.3) mg/dL AST 258 H (14-36) U/L ALT 43 (7-56) U/L Alkaline Phosphatase 457 H (38-126) U/L NT-Pro-B Natriuret Pep (0-450) pg/mL Total Protein 5.6 L (5.8-8.3) g/dL Albumin 2.7 L (3.0-4.8) g/dL Globulin 2.9 gm/dL Albumin/Globulin Ratio 0.9 L (1.1-1.8) Triglycerides (35-160) mg/dL Cholesterol (130-200) mg/dL LDL Cholesterol Direct (0-129) mg/dL HDL Cholesterol (29-60) mg/dL Procalcitonin (0.19-0.49) NG/ML TSH 3rd Generation (0.46-4.68) mIU/mL Urine Osmolality (300-1000) mosm/kg Ur Random Creatinine mg/dL Ur Random Sodium meq/L Random Vancomycin 19.0 L (20-40) ug/mL DYLAN, Poly Interpret (NEGATIVE) 06/06/18 Range/Units 18:45 WBC (4.5-11.0) 10^3/ul RBC (3.5-6.1) 10^6/uL Hgb (12.0-16.0) g/dL Hct (36.0-48.0) % MCV (80.0-105.0) fl MCH (25.0-35.0) pg MCHC (31.0-37.0) g/dl RDW (11.5-14.5) % Plt Count (120.0-450.0) 10^3/uL MPV (7.0-11.0) fl Gran % (50.0-68.0) % Lymph % (Auto) (22.0-35.0) % Johnston % (Auto) (1.0-6.0) % Eos % (Auto) (1.5-5.0) % Baso % (Auto) (0.0-3.0) % Gran # (1.4-6.5) Lymph # (Auto) (1.2-3.4) Johnston # (Auto) (0.1-0.6) Eos # (Auto) (0.0-0.7) Baso # (Auto) (0.0-2.0) K/mm3 Neutrophils % (Manual) (50.0-70.0) % Band Neutrophils % (0-2) % Lymphocytes % (Manual) (22.0-35.0) % Monocytes % (Manual) (1.0-6.0) % Metamyelocytes % % Myelocytes % % Sodium (132-148) mmol/L Potassium (3.6-5.0) mmol/L Chloride (98-107) mmol/L Carbon Dioxide (21-33) mmol/L Anion Gap (10-20) BUN (7-21) mg/dL Creatinine (0.7-1.2) mg/dl Est GFR ( Amer) Est GFR (Non-Af Amer) Random Glucose (70-110) mg/dL Calcium (8.4-10.5) mg/dL Phosphorus (2.5-4.5) mg/dL Magnesium (1.7-2.2) mg/dL Total Bilirubin (0.2-1.3) mg/dL AST (14-36) U/L ALT (7-56) U/L Alkaline Phosphatase (38-126) U/L NT-Pro-B Natriuret Pep (0-450) pg/mL Total Protein (5.8-8.3) g/dL Albumin (3.0-4.8) g/dL Globulin gm/dL Albumin/Globulin Ratio (1.1-1.8) Triglycerides (35-160) mg/dL Cholesterol (130-200) mg/dL LDL Cholesterol Direct (0-129) mg/dL HDL Cholesterol (29-60) mg/dL Procalcitonin 6.36 H (0.19-0.49) NG/ML TSH 3rd Generation (0.46-4.68) mIU/mL Urine Osmolality (300-1000) mosm/kg Ur Random Creatinine mg/dL Ur Random Sodium meq/L Random Vancomycin (20-40) ug/mL DYLAN, Poly Interpret (NEGATIVE) Laboratory Results - last 24 hr 06/06/18 06/07/18 06/07/18 18:45 06:40 13:15 WBC RBC Hgb Hct MCV MCH MCHC RDW Plt Count MPV Gran % Lymph % (Auto) Johnston % (Auto) Eos % (Auto) Baso % (Auto) Gran # Lymph # (Auto) Johnston # (Auto) Eos # (Auto) Baso # (Auto) Neutrophils % (Manual) 89 H Band Neutrophils % 3 H Lymphocytes % (Manual) 4 L Monocytes % (Manual) 1 Metamyelocytes % 2 Myelocytes % 1 Sodium Potassium Chloride Carbon Dioxide Anion Gap BUN Creatinine Est GFR ( Amer) Est GFR (Non-Af Amer) Random Glucose Calcium Phosphorus Magnesium Total Bilirubin AST ALT Alkaline Phosphatase NT-Pro-B Natriuret Pep Total Protein Albumin Globulin Albumin/Globulin Ratio Triglycerides Cholesterol LDL Cholesterol Direct HDL Cholesterol Procalcitonin 6.36 H TSH 3rd Generation Urine Osmolality Ur Random Creatinine Ur Random Sodium Random Vancomycin 19.0 L DYLAN, Poly Interpret 09/05/18 09/06/18 09/06/18 18:32 06:00 06:30 WBC 31.9 H* RBC 3.48 L Hgb 8.1 L Hct 26.1 L MCV 75.0 L MCH 23.3 L MCHC 31.0 RDW 18.0 H Plt Count 188 MPV 10.0 Gran % 93.0 H Lymph % (Auto) 4.7 L Johnston % (Auto) 1.5 Eos % (Auto) 0.8 L Baso % (Auto) 0.0 Gran # 29.62 H Lymph # (Auto) 1.5 Johnston # (Auto) 0.5 Eos # (Auto) 0.3 Baso # (Auto) 0.01 Neutrophils % (Manual) Band Neutrophils % Lymphocytes % (Manual) Monocytes % (Manual) Metamyelocytes % Myelocytes % Sodium 138 Potassium 5.4 H Chloride 106 Carbon Dioxide 19 L Anion Gap 19 BUN 119 H Creatinine 3.6 H Est GFR ( Amer) 15 Est GFR (Non-Af Amer) 13 Random Glucose 124 H Calcium 8.2 L Phosphorus 6.4 H Magnesium 2.9 H Total Bilirubin 1.3 AST 258 H ALT 43 Alkaline Phosphatase 457 H NT-Pro-B Natriuret Pep Total Protein 5.6 L Albumin 2.7 L Globulin 2.9 Albumin/Globulin Ratio 0.9 L Triglycerides Cholesterol LDL Cholesterol Direct HDL Cholesterol Procalcitonin TSH 3rd Generation Urine Osmolality 415 Ur Random Creatinine 194 Ur Random Sodium < 5 Random Vancomycin DYLAN, Poly Interpret 06/08/18 06/08/18 06/08/18 06:30 06:30 06:30 WBC RBC Hgb Hct MCV MCH MCHC RDW Plt Count MPV Gran % Lymph % (Auto) Johnston % (Auto) Eos % (Auto) Baso % (Auto) Gran # Lymph # (Auto) Johnston # (Auto) Eos # (Auto) Baso # (Auto) Neutrophils % (Manual) Band Neutrophils % Lymphocytes % (Manual) Monocytes % (Manual) Metamyelocytes % Myelocytes % Sodium 138 Potassium 5.2 H Chloride 108 H Carbon Dioxide 19 L Anion Gap 17 BUN 120 H Creatinine 3.2 H Est GFR ( Amer) 18 Est GFR (Non-Af Amer) 15 Random Glucose 126 H Calcium 8.1 L Phosphorus 6.9 H Magnesium 2.9 H Total Bilirubin 1.1 AST 223 H ALT 44 Alkaline Phosphatase 423 H NT-Pro-B Natriuret Pep 1210 H Total Protein 5.4 L Albumin 2.6 L Globulin 2.8 Albumin/Globulin Ratio 1.0 L Triglycerides 295 H Cholesterol 93 L LDL Cholesterol Direct 30 HDL Cholesterol 24 L Procalcitonin TSH 3rd Generation 0.45 L Urine Osmolality Ur Random Creatinine Ur Random Sodium Random Vancomycin 14.1 L DYLAN, Poly Interpret 06/08/18 07:45 WBC RBC Hgb Hct MCV MCH MCHC RDW Plt Count MPV Gran % Lymph % (Auto) Johnston % (Auto) Eos % (Auto) Baso % (Auto) Gran # Lymph # (Auto) Johnston # (Auto) Eos # (Auto) Baso # (Auto) Neutrophils % (Manual) Band Neutrophils % Lymphocytes % (Manual) Monocytes % (Manual) Metamyelocytes % Myelocytes % Sodium Potassium Chloride Carbon Dioxide Anion Gap BUN Creatinine Est GFR ( Amer) Est GFR (Non-Af Amer) Random Glucose Calcium Phosphorus Magnesium Total Bilirubin AST ALT Alkaline Phosphatase NT-Pro-B Natriuret Pep Total Protein Albumin Globulin Albumin/Globulin Ratio Triglycerides Cholesterol LDL Cholesterol Direct HDL Cholesterol Procalcitonin TSH 3rd Generation Urine Osmolality Ur Random Creatinine Ur Random Sodium Random Vancomycin DYLAN, Poly Interpret Negative Review of Systems - Review of Systems All systems: reviewed and no additional remarkable complaints except Review of Systems: as per HPI Critical Care Progress Note - Extremities/Vascular Does the Patient have a Central Venous Catheter?: No (removed today R femoral) - Prophylaxis GI Prophylaxis GI: Pepsid - Prophylaxis DVT Prophylaxis DVT: SCDs - Nutrition Nutrition: Nutrition Category Date Time Status Heart Healthy Diet [DIET] Diets 06/07/18 Lunch Active Assessment/Plan - Assessment and Plan (Free Text) Assessment: 62 year old female with PMH COPD (not on home O2), breast cancer with mets s/p chemo/radiation (08/2017) and left lumpectomy, CKD (baseline Cr 2.6), HTN, bipolar disorder, depression, HLD, gout, presents to ICU for leukocytosis, lactic acidosis, MARILYN on CKD, dehydration. Patient was on home prednisone 20 mg PO BID for past 7 days. Leukocytosis likely steroid induced, lactic acidosis likely type B1 (malignancy induced). Patient improving overall, clear for transfer out of ICU today. Plan: Neuro: AAOx4 Less drowsy, more alert Cardio: - BP in 100s/70s. HR 80s, NSR. - NS @150 - Echo 05/27/18 shows normal EF. normal valve function, mild TR. - Hx of HTN. hold home irbesartan and bystolic in setting of low BP. Monitor Pulm: hx of COPD (not on home O2). as per son, patient uses ventolin inhaler at home. Never a smoker. Verified with [facility] [place] [facility] pharmacy, patient was recently sent home on prednisone 20 mg PO BID (from recent [facility] admission on 06/01/18 - patient was on IV steroids in hospital). Xopenex prn, Prednisone 20 mg PO daily, will taper. On 2-3L NC, saturating well. CT chest shows moderate size right sided pleural effusion. Nodularity in both lung, indeterminate for malignancy, largest nodule is 1.3 cm (similar findings on chest CT on 05/2018). Mild diffuse subcutaneous edema in the lower abdomen and pelvis. Liver is heterogenous in appearance and appears to contain multiple mets. GI: - HHD - Protonix. Renal: - BUN/Cr 120/3.2 (baseline Cr 2.4) - IVF @ 150 - Replace lytes, maintain euvolemia. - Monitor ID: afebrile, + leukocytosis (likely steroid induced), elevated procal 6.38 WBC 31.9 from 35 yesterday CXR shows small right sided pleural effusion. stable cardiomegaly. CT chest shows moderate size right sided pleural effusion. Nodularity in both lung, indeterminate for malignancy, largest nodule is 1.3 cm (similar findings on chest CT on 05/2018). UA neg nitrate, LE. many bacteria, 1-3 wbcs. Blood and urine cultures negative to date Port-a-cath placed 05/29/[address] Pino, flushing well. On Cefepime and Vanco ID on board. Heme: - Hgb 8.1, platelets normal - monitor DVT ppx: scds GI ppx: protonix Case seen and discussed with Dr Evonne Cid, PGY1 - Date & Time Date: 06/08/18 <Aniket Douglass - Last Filed: 06/08/18 13:13> CCU Objective - Vital Signs / Intake & Output Vital Signs (Last 4 hours): Vital Signs Pulse Resp Pulse Ox 06/08/18 12:00 93 H 33 H 96 06/08/18 11:00 115 H 28 H 100 06/08/18 10:00 102 H 34 H 98 Intake and Output (Last 8hrs): Intake & Output 06/07/18 06/08/18 06/08/18 22:59 06:59 14:59 Intake Total 2400 2100 Output Total 300 400 Balance 2100 1700 Weight 274 lb Intake: IV 2150 Right Femoral 2150 Oral 250 300 Other 1800 Output: Urine 300 400 2-way Urethral 300 400 Other: # Bowel Movements 3 - Medications Active Medications: Active Medications Generic Name Dose Route Start Last Admin Trade Name Freq PRN Reason Stop Dose Admin Benztropine Mesylate 1 mg 06/07/18 18:00 06/07/18 18:12 Cogentin PO 1 mg QPM TAZ Administration Clonazepam 0.5 mg 06/07/18 18:00 06/08/18 10:10 Klonopin PO 0.5 mg BID TAZ Administration Protocol Sodium Chloride 1,000 mls @ 150 mls/hr 06/07/18 08:30 06/08/18 09:00 Sodium Chloride 0.9% IV 150 mls/hr .[id number] TAZ Administration Cefepime HCl 1 gm in 100 mls @ 100 mls/hr 06/08/18 10:00 06/08/18 12:03 Maxipime 1gm IVPB 100 mls/hr DAILY TAZ Administration Protocol Levalbuterol HCl 1.25 mg 06/07/18 02:00 06/08/18 07:14 Xopenex IH 1.25 mg [id number] TAZ Administration Olanzapine 20 mg 06/07/18 15:30 06/08/18 10:12 Zyprexa PO 20 mg DAILY TAZ Administration Pantoprazole Sodium 20 mg 06/08/18 09:35 Protonix Ec Tab PO 0600 TAZ Prednisone 10 mg 06/08/18 12:01 Prednisone Tab PO DAILY TAZ Tramadol/Acetaminophen 1 tab 06/08/18 12:01 Ultracet 37.5/325 Mg PO Q6H PRN Pain, moderate (4-7) Trazodone HCl 50 mg 06/07/18 22:00 06/07/18 23:19 Desyrel PO 50 mg HS TAZ Administration - Patient Studies Lab Studies: Microbiology Studies 06/06/18 18:15 Blood Culture - Preliminary Blood NO GROWTH AFTER 24 HOURS 06/06/18 18:00 Blood Culture - Preliminary Blood NO GROWTH AFTER 24 HOURS Lab Studies 06/08/18 06/08/18 06/08/18 Range/Units 07:45 06:30 06:30 WBC (4.5-11.0) 10^3/ul RBC (3.5-6.1) 10^6/uL Hgb (12.0-16.0) g/dL Hct (36.0-48.0) % MCV (80.0-105.0) fl MCH (25.0-35.0) pg MCHC (31.0-37.0) g/dl RDW (11.5-14.5) % Plt Count (120.0-450.0) 10^3/uL MPV (7.0-11.0) fl Gran % (50.0-68.0) % Lymph % (Auto) (22.0-35.0) % Johnston % (Auto) (1.0-6.0) % Eos % (Auto) (1.5-5.0) % Baso % (Auto) (0.0-3.0) % Gran # (1.4-6.5) Lymph # (Auto) (1.2-3.4) Johnston # (Auto) (0.1-0.6) Eos # (Auto) (0.0-0.7) Baso # (Auto) (0.0-2.0) K/mm3 Haptoglobin (30.0-200.0) mg/dL Sodium (132-148) mmol/L Potassium (3.6-5.0) mmol/L Chloride (98-107) mmol/L Carbon Dioxide (21-33) mmol/L Anion Gap (10-20) BUN (7-21) mg/dL Creatinine (0.7-1.2) mg/dl Est GFR ( Amer) Est GFR (Non-Af Amer) Random Glucose (70-110) mg/dL Calcium (8.4-10.5) mg/dL Phosphorus (2.5-4.5) mg/dL Magnesium (1.7-2.2) mg/dL Total Bilirubin (0.2-1.3) mg/dL AST (14-36) U/L ALT (7-56) U/L Alkaline Phosphatase (38-126) U/L NT-Pro-B Natriuret Pep (0-450) pg/mL Total Protein (5.8-8.3) g/dL Albumin (3.0-4.8) g/dL Globulin gm/dL Albumin/Globulin Ratio (1.1-1.8) Triglycerides (35-160) mg/dL Cholesterol (130-200) mg/dL LDL Cholesterol Direct (0-129) mg/dL HDL Cholesterol (29-60) mg/dL TSH 3rd Generation 0.45 L (0.46-4.68) mIU/mL Urine Osmolality (300-1000) mosm/kg Ur Random Creatinine mg/dL Ur Random Sodium meq/L Random Vancomycin 14.1 L (20-40) ug/mL DYLAN, Poly Interpret Negative (NEGATIVE) 06/08/18 06/08/18 06/08/18 Range/Units 06:30 06:30 06:00 WBC 31.9 H* (4.5-11.0) 10^3/ul RBC 3.48 L (3.5-6.1) 10^6/uL Hgb 8.1 L (12.0-16.0) g/dL Hct 26.1 L (36.0-48.0) % MCV 75.0 L (80.0-105.0) fl MCH 23.3 L (25.0-35.0) pg MCHC 31.0 (31.0-37.0) g/dl RDW 18.0 H (11.5-14.5) % Plt Count 188 (120.0-450.0) 10^3/uL MPV 10.0 (7.0-11.0) fl Gran % 93.0 H (50.0-68.0) % Lymph % (Auto) 4.7 L (22.0-35.0) % Johnston % (Auto) 1.5 (1.0-6.0) % Eos % (Auto) 0.8 L (1.5-5.0) % Baso % (Auto) 0.0 (0.0-3.0) % Gran # 29.62 H (1.4-6.5) Lymph # (Auto) 1.5 (1.2-3.4) Johnston # (Auto) 0.5 (0.1-0.6) Eos # (Auto) 0.3 (0.0-0.7) Baso # (Auto) 0.01 (0.0-2.0) K/mm3 Haptoglobin (30.0-200.0) mg/dL Sodium 138 (132-148) mmol/L Potassium 5.2 H (3.6-5.0) mmol/L Chloride 108 H (98-107) mmol/L Carbon Dioxide 19 L (21-33) mmol/L Anion Gap 17 (10-20) BUN 120 H (7-21) mg/dL Creatinine 3.2 H (0.7-1.2) mg/dl Est GFR ( Amer) 18 Est GFR (Non-Af Amer) 15 Random Glucose 126 H (70-110) mg/dL Calcium 8.1 L (8.4-10.5) mg/dL Phosphorus 6.9 H (2.5-4.5) mg/dL Magnesium 2.9 H (1.7-2.2) mg/dL Total Bilirubin 1.1 (0.2-1.3) mg/dL AST 223 H (14-36) U/L ALT 44 (7-56) U/L Alkaline Phosphatase 423 H (38-126) U/L NT-Pro-B Natriuret Pep 1210 H (0-450) pg/mL Total Protein 5.4 L (5.8-8.3) g/dL Albumin 2.6 L (3.0-4.8) g/dL Globulin 2.8 gm/dL Albumin/Globulin Ratio 1.0 L (1.1-1.8) Triglycerides 295 H (35-160) mg/dL Cholesterol 93 L (130-200) mg/dL LDL Cholesterol Direct 30 (0-129) mg/dL HDL Cholesterol 24 L (29-60) mg/dL TSH 3rd Generation (0.46-4.68) mIU/mL Urine Osmolality 415 (300-1000) mosm/kg Ur Random Creatinine 194 mg/dL Ur Random Sodium < 5 meq/L Random Vancomycin (20-40) ug/mL DYLAN, Poly Interpret (NEGATIVE) 06/07/18 06/07/18 06/07/18 Range/Units 18:32 18:32 13:15 WBC (4.5-11.0) 10^3/ul RBC (3.5-6.1) 10^6/uL Hgb (12.0-16.0) g/dL Hct (36.0-48.0) % MCV (80.0-105.0) fl MCH (25.0-35.0) pg MCHC (31.0-37.0) g/dl RDW (11.5-14.5) % Plt Count (120.0-450.0) 10^3/uL MPV (7.0-11.0) fl Gran % (50.0-68.0) % Lymph % (Auto) (22.0-35.0) % Johnston % (Auto) (1.0-6.0) % Eos % (Auto) (1.5-5.0) % Baso % (Auto) (0.0-3.0) % Gran # (1.4-6.5) Lymph # (Auto) (1.2-3.4) Johnston # (Auto) (0.1-0.6) Eos # (Auto) (0.0-0.7) Baso # (Auto) (0.0-2.0) K/mm3 Haptoglobin 457.9 H (30.0-200.0) mg/dL Sodium 138 (132-148) mmol/L Potassium 5.4 H (3.6-5.0) mmol/L Chloride 106 (98-107) mmol/L Carbon Dioxide 19 L (21-33) mmol/L Anion Gap 19 (10-20) BUN 119 H (7-21) mg/dL Creatinine 3.6 H (0.7-1.2) mg/dl Est GFR ( Amer) 15 Est GFR (Non-Af Amer) 13 Random Glucose 124 H (70-110) mg/dL Calcium 8.2 L (8.4-10.5) mg/dL Phosphorus 6.4 H (2.5-4.5) mg/dL Magnesium 2.9 H (1.7-2.2) mg/dL Total Bilirubin 1.3 (0.2-1.3) mg/dL AST 258 H (14-36) U/L ALT 43 (7-56) U/L Alkaline Phosphatase 457 H (38-126) U/L NT-Pro-B Natriuret Pep (0-450) pg/mL Total Protein 5.6 L (5.8-8.3) g/dL Albumin 2.7 L (3.0-4.8) g/dL Globulin 2.9 gm/dL Albumin/Globulin Ratio 0.9 L (1.1-1.8) Triglycerides (35-160) mg/dL Cholesterol (130-200) mg/dL LDL Cholesterol Direct (0-129) mg/dL HDL Cholesterol (29-60) mg/dL TSH 3rd Generation (0.46-4.68) mIU/mL Urine Osmolality (300-1000) mosm/kg Ur Random Creatinine mg/dL Ur Random Sodium meq/L Random Vancomycin 19.0 L (20-40) ug/mL DYLAN, Poly Interpret (NEGATIVE) Laboratory Results - last 24 hr 06/07/18 06/07/18 06/07/18 13:15 18:32 18:32 WBC RBC Hgb Hct MCV MCH MCHC RDW Plt Count MPV Gran % Lymph % (Auto) Johnston % (Auto) Eos % (Auto) Baso % (Auto) Gran # Lymph # (Auto) Johnston # (Auto) Eos # (Auto) Baso # (Auto) Haptoglobin 457.9 H Sodium 138 Potassium 5.4 H Chloride 106 Carbon Dioxide 19 L Anion Gap 19 BUN 119 H Creatinine 3.6 H Est GFR ( Amer) 15 Est GFR (Non-Af Amer) 13 Random Glucose 124 H Calcium 8.2 L Phosphorus 6.4 H Magnesium 2.9 H Total Bilirubin 1.3 AST 258 H ALT 43 Alkaline Phosphatase 457 H NT-Pro-B Natriuret Pep Total Protein 5.6 L Albumin 2.7 L Globulin 2.9 Albumin/Globulin Ratio 0.9 L Triglycerides Cholesterol LDL Cholesterol Direct HDL Cholesterol TSH 3rd Generation Urine Osmolality Ur Random Creatinine Ur Random Sodium Random Vancomycin 19.0 L DYLAN, Poly Interpret 06/08/18 06/08/18 06/08/18 06:00 06:30 06:30 WBC 31.9 H* RBC 3.48 L Hgb 8.1 L Hct 26.1 L MCV 75.0 L MCH 23.3 L MCHC 31.0 RDW 18.0 H Plt Count 188 MPV 10.0 Gran % 93.0 H Lymph % (Auto) 4.7 L Johnston % (Auto) 1.5 Eos % (Auto) 0.8 L Baso % (Auto) 0.0 Gran # 29.62 H Lymph # (Auto) 1.5 Johnston # (Auto) 0.5 Eos # (Auto) 0.3 Baso # (Auto) 0.01 Haptoglobin Sodium 138 Potassium 5.2 H Chloride 108 H Carbon Dioxide 19 L Anion Gap 17 BUN 120 H Creatinine 3.2 H Est GFR ( Amer) 18 Est GFR (Non-Af Amer) 15 Random Glucose 126 H Calcium 8.1 L Phosphorus 6.9 H Magnesium 2.9 H Total Bilirubin 1.1 AST 223 H ALT 44 Alkaline Phosphatase 423 H NT-Pro-B Natriuret Pep 1210 H Total Protein 5.4 L Albumin 2.6 L Globulin 2.8 Albumin/Globulin Ratio 1.0 L Triglycerides 295 H Cholesterol 93 L LDL Cholesterol Direct 30 HDL Cholesterol 24 L TSH 3rd Generation Urine Osmolality 415 Ur Random Creatinine 194 Ur Random Sodium < 5 Random Vancomycin DYLAN, Poly Interpret 06/08/18 06/08/18 06/08/18 06:30 06:30 07:45 WBC RBC Hgb Hct MCV MCH MCHC RDW Plt Count MPV Gran % Lymph % (Auto) Johnston % (Auto) Eos % (Auto) Baso % (Auto) Gran # Lymph # (Auto) Johnston # (Auto) Eos # (Auto) Baso # (Auto) Haptoglobin Sodium Potassium Chloride Carbon Dioxide Anion Gap BUN Creatinine Est GFR ( Amer) Est GFR (Non-Af Amer) Random Glucose Calcium Phosphorus Magnesium Total Bilirubin AST ALT Alkaline Phosphatase NT-Pro-B Natriuret Pep Total Protein Albumin Globulin Albumin/Globulin Ratio Triglycerides Cholesterol LDL Cholesterol Direct HDL Cholesterol TSH 3rd Generation 0.45 L Urine Osmolality Ur Random Creatinine Ur Random Sodium Random Vancomycin 14.1 L DYLAN, Poly Interpret Negative Critical Care Progress Note - Nutrition Nutrition: Nutrition Category Date Time Status Heart Healthy Diet [DIET] Diets 06/07/18 Lunch Active Assessment/Plan - Assessment and Plan (Free Text) Plan: Patient seen and examined on rounds, with resident, agree with note with following additions/exceptions: 62 year old female with PMH COPD, breast cancer with mets s/p chemo/radiation ( 08/2017) and left lumpectomy, CKD (baseline Cr 2.6), HTN, bipolar disorder, depression, HLD, gout, admitted to MICU for severe sepsis, MARILYN on CKD, dehydration Currently afebrile, BP stable, comfortable in NAD, AAOx3, doing well. Labs, imaging, chart reviewed. Cr improving. Severe Sepsis Dehydration Acute on CKD Leukocytosis Breast Ca with mets COPD Recommend: - supp o2 as needed, Duonebs PRN - cont with Abx as per ID - IVF hydration, decrease NS to 75cc/hr - BP control - follow up ID, renal - follow up heme onc - GI ppx - DVT ppx - transfer to telemetry
[2018-06-08] MEDS ORDERED: TraMADol/Apap 37.5/325 mg Tab PO PRN (12:01)
--- NOTE | 2018-06-08 14:07 | PN ---
DATE: 06/08/2018 REASON FOR THE CONSULTATION AND FOLLOWUP: Cardiac evaluation, rule out congestive heart failure, shortness of breath, acute kidney injury. SUBJECTIVE: The patient denies any chest pain, shortness of breath or any palpitation. Son is at the bedside. OBJECTIVE: GENERAL: Not in any apparent distress, lying flat on the bed. VITAL SIGNS: Temperature afebrile, heart rate 85, blood pressure 93/45. HEENT: PERRLA. Extraocular muscles intact. NECK: Supple. No carotid bruit. No thyromegaly. CHEST: Clear to auscultation. HEART: S1 and S2 regular. ABDOMEN: Soft. EXTREMITIES: Clubbing and cyanosis negative. LABORATORY DATA: Blood workup: WBC 31.9, hemoglobin 8.1, hematocrit 26.1, platelet count 188. Chemistry shows sodium 130, potassium 5.2, chloride 108, carbon dioxide 19, anion gap of 17, BUN 20, creatinine 3.2, TSH 0.45, BNP 1210. IMPRESSION: This is a 62-year-old female with past medical history significant for morbid obesity, hypertension, chronic obstructive pulmonary disease, bipolar disorder, depression, hyperlipidemia, gout, left breast lumpectomy, breast cancer, chemotherapy in 08/2016, history of chronic renal insufficiency, recently discharged, readmitted with worsening weakness, lethargy, worsening renal insufficiency. Recently, a V/Q scan done at [facility] last admission shows low probability. The patient to continued being hydrated for renal insufficiency. Renal function is impaired with creatinine clearance around 80 mL, stage 4-5 chronic kidney disease. CVS status is stable. Recently the patient had echo done dated 05/27/2018, read by Dr. Sadler shows normal size, left ventricular function within normal limits, mild tricuspid regurgitation. Calculated ejection fraction 81%. Right ventricular systolic pressure 20. History of metastatic breast cancer, acute renal insufficiency. RECOMMENDATIONS: Monitor electrolytes. Monitor renal function. Continue hydration. The patient is stable. Elevated BNP though, but clinically the patient is not in congestive heart failure. We will follow with you. Thank you, Dr. Flores, for providing us the opportunity in taking care of the patient, Leydi Strong. Dee Mar MD
--- NOTE | 2018-06-08 14:16 | PN ---
DATE: 06/08/2018 SUBJECTIVE: The patient is 62 years old, seen and examined, looks better than yesterday, less shortness of breath. No nausea or vomiting. Eats fair. PHYSICAL EXAMINATION VITAL SIGNS: She is afebrile, pulse 85, respiration 25, blood pressure 93/45. LUNGS: Bilateral fair airflow. She is taking shallow breath, not deep enough. We will request for incentive spirometry. ABDOMEN: Soft, obese, nontender. No rebound. No guarding. NEUROLOGIC: She is awake, alert, oriented, communicative. EXTREMITIES: Complained of right calf pain. LABORATORY DATA: WBC 31.9, hemoglobin 8.1, hematocrit 26, platelets 188. Chemistry: Sodium 138, potassium 5.2, chloride 108, CO2 of 19, BUN 120, creatinine 3.2, blood sugar of 126. Calcium 8.1, AST 223. BNP 1210. Blood cultures and urine cultures are negative. She had x-ray of chest, no active disease. She had bilateral leg Doppler done on 06/06 with no sonographic evidence of DVT. ASSESSMENT: 1. Acute renal failure. 2. Metastatic breast cancer with metastasis to the liver. 3. Bipolar disorder. 4. Hyperkalemia, improving. 5. . 6. History of gout. PLAN: Currently, the patient is on bicarbonate drip. She was given a dose of Aranesp. She is on her usual bipolar medication including Cogentin, trazodone, Klonopin. She is receiving cefepime. I will cut down her steroids since she is not actively wheezing. We will give her analgesic. We will follow up on electrolyte and CBC in a.m. Jessica Flores MD
--- NOTE | 2018-06-08 17:33 | PN ---
DATE: 06/08/2018 SUBJECTIVE: The patient is in the ICU. She is lying in bed. She does not appear to be in any kind of distress. She is arousable. She is groggy. As per the nursing staff, she ate better today. She is still receiving 150 mL/hour of IV fluids. Her 24-hour urine output has only been 450 mL. Her total intake has been 4.5 L. Her WBC count remains elevated at 32,000. Her hemoglobin is 8.1 today. It has dropped from 9 since admission. She denies any pain. She denies any chest tightness. She had a large bowel movement this morning. As per the nursing staff, it was brown and liquid. PHYSICAL EXAMINATION: GENERAL: Morbidly obese elderly lady lying in bed in the ICU. VITAL SIGNS: Blood pressure 114/55, heart rate 84, respiratory rate 28, temperature 98.4. HEENT: Normocephalic, atraumatic, positive pallor, no icterus. NECK: Supple, no JVD. LUNGS: Bilateral equal air entry, bilateral equal expansion, decreased air entry at bases, poor inspiratory effort. CARDIAC: S1 and S2, regular rate and rhythm, no murmur, no rub. ABDOMEN: Obese, distended, soft, nontender, bowel sounds present. EXTREMITIES: Trace lower extremity edema. INTAKE AND OUTPUT: 4500/700. LABORATORY DATA: WBC 31.9, hemoglobin 8, hematocrit 26, platelets 188, 93% polys. Sodium 138, potassium 5.2, chloride 108, CO2 of 19, BUN 120, creatinine 3.2, glucose 126, calcium 8.1, phosphorus 6.9, magnesium 2.9, AST 223, ALT 44, albumin 2.6, TSH 0.45. Urine sodium less than 5, urine creatinine 194, urine osmolality 415. Vancomycin trough level 14. Urine culture: No growth so far. Blood culture: No growth so far. CURRENT MEDICATIONS: Cogentin 1 mg nightly, Desyrel, Klonopin, Maxipime 1 g daily, prednisone 10 mg daily, Protonix, normal saline at 150, Ultracet, Xopenex, Zyprexa, Aranesp 100 mcg given this morning. ASSESSMENT: 1. Acute kidney injury superimposed on chronic kidney disease?, rising BUN with improved creatinine. Etiology of acute kidney injury is unclear. Prerenal azotemia? versus acute tubular necrosis secondary to blood loss? versus hepatorenal syndrome. Urine sodium of less than 5 is consistent with either prerenal azotemia or hepatorenal syndrome. 2. Hyperkalemia, secondary to acute kidney injury. Mild. No intervention needed. 3. Severe anemia, hemoglobin dropping slowly. ? secondary to IV fluids. 4. History of breast cancer with metastasis to the lungs, liver. 5. History of bipolar disorder. 6. Morbid obesity. 7. History of chronic obstructive pulmonary disease. PLAN: 1. I would discontinue IV fluids if p.o. intake is adequate. The patient has received 4 L of IV fluids in resuscitation. 2. Monitor urine output closely. 3. Consider IV albumin at 1 g/kg. 4. Follow up liver biopsy. 5. No treatment needed for mild hyperkalemia at this time. 6. Case discussed at length with son at bedside. Case discussed with the ICU nurse at bedside. More than 35 minutes spent in the care of this critically ill patient. Loreta Giron MD
[2018-06-08] MEDS ORDERED: Vancomycin 1gm in NS 250ml 1 GM/250 ML BAG IVPB ONE (20:16)
--- NOTE | 2018-06-08 22:00 | PN ---
DATE: 06/08/2018 PULMONARY PROGRESS NOTE REFERRING PHYSICIAN: Dr. Flores. SUBJECTIVE: She is lying in the bed, sleepy, arousable. Son is at bedside. Gets short of breath with minimal exertion. No chest pain. No abdominal pain. No dysuria. Does have leg swelling. OBJECTIVE: GENERAL: In no acute distress. VITAL SIGNS: Temperature is 98, heart rate is 84, respiratory rate is 20, blood pressure 91/57, pulse ox 98% on room air. HEENT: Moist mucous membranes. Crowded airway. NECK: Supple. No JVD. LUNGS: Have a few crackles and scattered rhonchi. HEART: S1 and S2. ABDOMEN: Soft, nontender. No organomegaly. EXTREMITIES: Does have trace edema. NEUROLOGICAL: Sleepy, arousable. Follows simple command. MEDICATIONS: She is on Cogentin 1 mg afternoon, trazodone 50 mg at bedtime, clonazepam 0.5 mg twice a day, cefepime 1 g IV daily, prednisone 10 mg daily, Protonix 20 mg daily, IV fluid normal saline 150 mL per hour, Ultracet 37.5/325 every 6 hours p.r.n., Xopenex inhaled every 6 hours, Zyprexa 20 mg daily. LABORATORY DATA: Shows hemoglobin 8.1, hematocrit 26.1, WBC 32,000, platelet count is 188. Sodium 138, potassium 5.2, chloride 108, bicarbonate 19, BUN 120, creatinine is 3.2, glucose 126, hemoglobin A1c 6.3, calcium 8.1, phosphorus 6.9, magnesium 2.9, AST 223, ALT 44, alk phos is 423. ProBNP 1210. Albumin 2.6. TSH is 0.45. Microbiology, blood culture, urine culture and nasal culture is unremarkable. Chest x-ray done and shows right internal jugular [id number] that terminating the SVC; otherwise, no active pulmonary disease reported. IMPRESSION AND PLAN: Probably metastatic breast cancer to the lungs and liver, admitted with acute renal failure, sepsis, small pleural effusion, may be component of pneumonia, hypertension, bipolar disorder, chronic lung disease, may be a component of sleep apnea syndrome. The patient is refusing to use CPAP. Son is at bedside. All the questions answered. Continue antibiotics as per Infectious Diseases. Continue hydrate slowly. According to son, she did not drink or eat mostly when she was at home. Careful with sedation. Pressure ulcer precaution. Gastric prophylaxis. We will start her on small dose of heparin for deep vein thrombosis prophylaxis. Follow up labs in the morning. Thank you and we will follow with you. Dee German MD
[2018-06-09] MEDS: Levalbuterol 1.25 MG/3 ML Inhal Soln UD IH SCH ×4 (01:27→20:46)
[2018-06-09] MEDS: Pantoprazole 20 mg EC Tab PO SCH (05:48)
[2018-06-09 07:21] LABS: HEMOGLOBIN 7.9 g/dL (12.0-16.0); MEAN CELL VOLUME 75.8 fl (80.0-105.0); MEAN CORPUSCULAR HEMOGLOBIN 22.8 pg (25.0-35.0); MEAN PLATELET VOLUME 9.5 fl (7.0-11.0); RBC 3.47 10^6/uL (3.5-6.1)
[2018-06-09 07:25] LABS: ALBUMIN 2.5 g/dL (3.0-4.8); CALCIUM 7.9 mg/dL (8.4-10.5)
[2018-06-09 07:30] LABS: WHITE BLOOD COUNT 31.4 10^3/ul (4.5-11.0)
--- NOTE | 2018-06-09 07:34 | CP.PCM.PN ---
Subjective - Date & Time of Evaluation Date of Evaluation: 06/09/18 Time of Evaluation: 06:10 - Subjective Subjective: Easily awaken, no distress, son at bedside Reason for consultation and follow up: Cardiac evaluation for shortness of breath, rule out congestive heart failure,acute kidney injury,history of breast cancer Seen and examined by me and Dr. Mar Objective - Vital Signs/Intake and Output Vital Signs (last 24 hours): Temp Pulse Resp BP Pulse Ox 98.4 F 84 21 91/57 L 98 06/08/18 14:00 06/09/18 02:00 06/09/18 00:00 06/08/18 14:00 06/09/18 00:00 Intake and Output: 06/09/18 06/09/18 06:59 18:59 Intake Total 180 Output Total 200 Balance -20 - Medications Medications: Current Medications Benztropine Mesylate (Cogentin) 1 mg PO QPM [facility] Last Admin: 06/08/18 18:57 Dose: Not Given Clonazepam (Klonopin) 0.5 mg PO BID TAZ PRN Reason: Protocol Last Admin: 06/08/18 18:57 Dose: Not Given Heparin Sodium (Porcine) (Heparin) 5,000 units SC Q12 TAZ PRN Reason: Protocol Last Admin: 06/08/18 21:31 Dose: 5,000 units Sodium Chloride (Sodium Chloride 0.9%) 1,000 mls @ 150 mls/hr IV .Q6H40M [facility] Last Admin: 06/08/18 09:00 Dose: 150 mls/hr Cefepime HCl (Maxipime 1gm) 1 gm in 100 mls @ 100 mls/hr IVPB DAILY [facility] PRN Reason: Protocol Last Admin: 06/08/18 12:03 Dose: 100 mls/hr Levalbuterol HCl (Xopenex) 1.25 mg IH [id number] [facility] Last Admin: 06/09/18 07:20 Dose: 1.25 mg Olanzapine (Zyprexa) 20 mg PO DAILY [facility] Last Admin: 06/08/18 10:12 Dose: 20 mg Pantoprazole Sodium (Protonix Ec Tab) 20 mg PO 0600 [facility] Last Admin: 06/09/18 05:48 Dose: 20 mg Prednisone (Prednisone Tab) 10 mg PO DAILY [facility] Tramadol/Acetaminophen (Ultracet 37.5/325 Mg) 1 tab PO Q6H PRN PRN Reason: Pain, moderate (4-7) Trazodone HCl (Desyrel) 50 mg PO HS [facility] Last Admin: 06/07/18 23:19 Dose: 50 mg - Labs Labs: 06/08/18 06:30 06/09/18 06:45 PT 14.0 SECONDS (9.4-12.5) H 06/07/18 06:40 INR 1.21 06/07/18 06:40 APTT 27.5 Seconds (25.1-36.5) 06/09/18 06:45 - Constitutional Appears: No Acute Distress - Eye Exam Eye Exam: Normal appearance - ENT Exam ENT Exam: Mucous Membranes Moist - Respiratory Exam Respiratory Exam: Decreased Breath Sounds, Clear to Ausculation Bilateral, NORMAL BREATHING PATTERN - Cardiovascular Exam Cardiovascular Exam: +S1, +S2 Additional comments: right chest port - GI/Abdominal Exam GI & Abdominal Exam: Soft, Normal Bowel Sounds - Extremities Exam Additional comments: 2+ edema - Neurological Exam Neurological Exam: Alert, Awake - Psychiatric Exam Psychiatric exam: Normal Affect - Skin Skin Exam: Warm Assessment and Plan - Assessment and Plan (Free Text) Assessment: A 62 year old female,morbidly obese who came in to the ER due to worsening shortness of breath and fatigue. She was [place]18 [place] [facility] [place] failure and nodules in the liver. She has history of left lumpectomy,breast cancer, chemotherapy 08/2016, history of hypertension,COPD, bipolar disorder,depression,hyperlipidemia, gout,renal insufficiency. Recent VQ scan at [facility] [place] negative for pulmonary embolism.CT of chest showed multiple pulmonary nodules.recent ECHO LVEF 81%, LV function normal. Plan: Transferred from ICU to Medical unit Cardiac status stable Heart rate and blood pressure controlled Low hemoglobin and hematocrit For blood transfusion as ordered by Oncology Continue current treatment Continue current medications Will follow up Plan and treatment discussed with Dr. Mar
--- NOTE | 2018-06-09 08:00 | CP.PCM.PN ---
<Tesha Dodge - Last Filed: 06/09/18 17:22> Subjective - Date & Time of Evaluation Date of Evaluation: 06/09/18 Time of Evaluation: 09:00 - Subjective Subjective: [id number] ID Progress note for Dr. Humphrey Patient seen and examined at bedside. Nursing reported no acute events overnight. Patient is ao x 3 this AM and reports feeling better. She felt more awake and reported her breathing had improved. She denied any chest pain, SOB at rest, abd pain, nausea/vomiting, bladder complaints, pain in her legs b/l. Objective - Vital Signs/Intake and Output Vital Signs (last 24 hours): Temp Pulse Resp BP Pulse Ox 98 F 94 H 20 103/53 L 95 06/09/18 06:00 06/09/18 06:00 06/09/18 06:00 06/09/18 06:00 06/09/18 06:00 Intake and Output: 06/09/18 06/09/18 06:59 18:59 Intake Total 180 Output Total 200 Balance -20 - Medications Medications: Current Medications Benztropine Mesylate (Cogentin) 1 mg PO QPM [facility] Last Admin: 06/08/18 18:57 Dose: Not Given Clonazepam (Klonopin) 0.5 mg PO BID TAZ PRN Reason: Protocol Last Admin: 06/08/18 18:57 Dose: Not Given Heparin Sodium (Porcine) (Heparin) 5,000 units SC Q12 TAZ PRN Reason: Protocol Last Admin: 06/08/18 21:31 Dose: 5,000 units Sodium Chloride (Sodium Chloride 0.9%) 1,000 mls @ 150 mls/hr IV .Q6H40M [facility] Last Admin: 06/08/18 09:00 Dose: 150 mls/hr Cefepime HCl (Maxipime 1gm) 1 gm in 100 mls @ 100 mls/hr IVPB DAILY [facility] PRN Reason: Protocol Last Admin: 06/08/18 12:03 Dose: 100 mls/hr Levalbuterol HCl (Xopenex) 1.25 mg IH [id number] [facility] Last Admin: 06/09/18 07:20 Dose: 1.25 mg Olanzapine (Zyprexa) 20 mg PO DAILY [facility] Last Admin: 06/08/18 10:12 Dose: 20 mg Pantoprazole Sodium (Protonix Ec Tab) 20 mg PO 0600 [facility] Last Admin: 06/09/18 05:48 Dose: 20 mg Prednisone (Prednisone Tab) 10 mg PO DAILY [facility] Tramadol/Acetaminophen (Ultracet 37.5/325 Mg) 1 tab PO Q6H PRN PRN Reason: Pain, moderate (4-7) Trazodone HCl (Desyrel) 50 mg PO HS [facility] Last Admin: 06/07/18 23:19 Dose: 50 mg - Labs Labs: 06/09/18 06:45 06/09/18 06:45 PT 14.0 SECONDS (9.4-12.5) H 06/07/18 06:40 INR 1.21 06/07/18 06:40 APTT 27.5 Seconds (25.1-36.5) 06/09/18 06:45 - Constitutional Appears: No Acute Distress, Chronically Ill - Head Exam Head Exam: ATRAUMATIC, NORMAL INSPECTION, NORMOCEPHALIC - Eye Exam Eye Exam: EOMI, Normal appearance. absent: Conjunctival injection - ENT Exam ENT Exam: Mucous Membranes Moist - Respiratory Exam Respiratory Exam: Decreased Breath Sounds, NORMAL BREATHING PATTERN. absent: Respiratory Distress - Cardiovascular Exam Cardiovascular Exam: +S1, +S2 - GI/Abdominal Exam GI & Abdominal Exam: Soft. absent: Tenderness - Rectal Exam Rectal Exam: Deferred - Neurological Exam Neurological Exam: Alert, Awake, Oriented x3 - Psychiatric Exam Psychiatric exam: Normal Affect, Normal Mood - Skin Skin Exam: Dry, Intact, Normal Color, Warm Assessment and Plan - Assessment and Plan (Free Text) Assessment: 62yo female PMHx HTN, COPD, bipolar disorder, depression, hyperlipidemia, CKD Stage II, gout, breast cancer (dx 2016) with mets, s/p chemo/radiation and L lumpectomy was brought in from PMD office for worsening fatigue and SOB. Patient admitted to MICU for severe sepsis currently transferred to med/surg Plan: -patient to be transfused 1U PRBC this AM -sepsis likely secondary to HCAP -clinically improving; leukocytosis likely due to home steroid use (prednisone 20mg po bid) -CXR this AM unremarkable -LE u/s negative for DVT -WBC 31.4 this AM down from 35.0 -blood cx prelim negative x 2 -urine cx final negative -Cefepime 1gm daily [started 06/08] -Patient received 1 dose Vancomycin on 06/07 -UA neg nitrate, LE. many bacteria, 1-3 wbcs -CT Chest/abd/pelvis: multiple pulm nodules; L axially adenopathy; mild ascites and subq edema -continue current management as per primary medical team Discussed with Dr. Kam Dodge PGY3 <Iftikhar Humphrey - Last Filed: 06/09/18 19:46> Objective - Vital Signs/Intake and Output Vital Signs (last 24 hours): Temp Pulse Resp BP Pulse Ox 99.5 F 100 H 40 H 110/63 96 06/09/18 18:45 06/09/18 18:45 06/09/18 18:45 06/09/18 18:45 06/09/18 18:43 Intake and Output: 06/09/18 06/10/18 18:59 06:59 Intake Total 325 Output Total 250 Balance 75 - Medications Medications: Current Medications Benztropine Mesylate (Cogentin) 0.5 mg PO HS [facility]Z Benztropine Mesylate (Cogentin) 0.5 mg PO BID TAZ Heparin Sodium (Porcine) (Heparin) 5,000 units SC Q12 TAZ PRN Reason: Protocol Last Admin: 06/09/18 10:15 Dose: 5,000 units Cefepime HCl (Maxipime 1gm) 1 gm in 100 mls @ 100 mls/hr IVPB DAILY [facility] PRN Reason: Protocol Last Admin: 06/09/18 10:14 Dose: 100 mls/hr Levalbuterol HCl (Xopenex) 1.25 mg IH [id number] [facility] Last Admin: 06/09/18 13:29 Dose: Not Given Lorazepam (Ativan) 1 mg PO TID PRN; Protocol PRN Reason: anxiety/agitation Olanzapine (Zyprexa Zydis) 5 mg PO BID TAZ PRN Reason: Protocol Olanzapine (Zyprexa Zydis) 5 mg PO HS TAZ PRN Reason: Protocol Pantoprazole Sodium (Protonix Ec Tab) 20 mg PO 0600 [facility] Last Admin: 06/09/18 05:48 Dose: 20 mg Tramadol/Acetaminophen (Ultracet 37.5/325 Mg) 1 tab PO Q6H PRN PRN Reason: Pain, moderate (4-7) - Labs Labs: 06/09/18 06:45 06/09/18 06:45 PT 14.0 SECONDS (9.4-12.5) H 06/07/18 06:40 INR 1.21 06/07/18 06:40 APTT 27.5 Seconds (25.1-36.5) 06/09/18 06:45 Assessment and Plan - Assessment and Plan (Free Text) Plan: Infectious Diseases Attending Physician Addendum Patient seen and examined, discussed with medical administrative. I have reviewed the pertinent clinical information for the patient, including history of present illness, medical, personal and social histories, lab results and imaging findings. I agree with the above findings, assessment and plan. In addition, we will continue intermittent Vancomycin and Cefepime for this patient with probable sepsis from bilateral HCAP. Blood cx are negative, PCT is elevated. Will continue to monitor clinically. Overall prognosis is poor.
--- NOTE | 2018-06-09 09:59 | PN ---
DATE: 06/09/2018 FOLLOWUP NOTE SUBJECTIVE: She is comfortable in bed, in no acute distress, drowsy, but arousable. Complaining of fluid retention. Hemoglobin declined to 7.9 g/dL today. Blood culture and urine culture are negative. Denies any pain. at bedside. REVIEW OF SYSTEMS: As per HPI. Rest of 12-point review of systems reviewed and negative. PHYSICAL EXAMINATION: GENERAL: Comfortable in bed, in no acute distress. Obese. VITAL SIGNS: Temperature 98 , heart rate is 84 per minute, blood pressure 103/53, oxygen saturation 95% on oxygen by nasal cannula. HEENT: Pallor positive. NECK: No lymphadenopathy. CHEST: Air entry present and equal bilaterally. No added sounds. CARDIOVASCULAR: S1 and S2 normal. No murmur, no gallop. ABDOMEN: Soft and nontender. No hepatosplenomegaly. EXTREMITIES: Bilateral edema. CENTRAL NERVOUS SYSTEM: Drowsy, arousable. No focal, sensory or motor deficit. SPINE: Nontender. LABORATORY DATA: White count 31.4, hemoglobin 7.9, hematocrit 26.3, platelet 158. Sodium 141, potassium 5.1, calcium 7.9. Creatinine 2.8 improved from 3.6. LFTs within normal limits. Bilirubin 1.2. AST elevated, alkaline phosphatase elevated 446. MEDICATIONS: Cefepime 1 g daily, Klonopin 0.5 mg p.o. b.i.d., heparin subcu 5000 every 12 hours, Xopenex inhalation, Protonix, prednisone 10 mg daily, IV fluid at 150 mL an hour., trazodone 50 mg p.o. at bedtime. ASSESSMENT: 1. Stage IV breast cancer, metastatic lesion in the lung and liver. 2. Acute on chronic renal insufficiency. 3. Anemia. 4. Respiratory distress. 5. Sepsis. PLAN: She is currently on IV antibiotics. Urine culture and blood culture negative. Pain controlled with current medications. Acute on chronic renal insufficiency followed by Dr. Giron. Hemoglobin declined to 7.9, two units of blood transfusion ordered today. Continue heparin prophylaxis 5000 every 12 hours for DVT. We will continue supportive care until DVT improved. We will consider chemotherapy when general condition has improved. Renal function has improved slightly, creatinine 2.8. Discussed with the son at bedside and discussed with the staff nurse. Maricruz Mariano MD [facility] # [id number]
[2018-06-09] MEDS: Cefepime 1gm in NS 100ml 1 GM/100 ML BAG IVPB SCH (10:14)
--- NOTE | 2018-06-09 12:00 | CP.PCM.PN ---
<Hugo Dia - Last Filed: 06/09/18 11:57> Subjective - Date & Time of Evaluation Date of Evaluation: 06/09/18 Time of Evaluation: 11:57 - Subjective Subjective: GI Fellow PGY4 No complaints. No BM yesterday. Denies feeling constipated. No reports of black stool per nursing staff. No acute overnight events. 5pt ROS neg except for above. Objective - Vital Signs/Intake and Output Vital Signs (last 24 hours): Temp Pulse Resp BP Pulse Ox 98 F 94 H 20 103/53 L 95 06/09/18 06:00 06/09/18 06:00 06/09/18 06:00 06/09/18 06:00 06/09/18 06:00 Intake and Output: 06/09/18 06/09/18 06:59 18:59 Intake Total 1410 Output Total 400 Balance 1010 - Medications Medications: Current Medications Benztropine Mesylate (Cogentin) 1 mg PO QPM [facility] Last Admin: 06/08/18 18:57 Dose: Not Given Clonazepam (Klonopin) 0.5 mg PO BID TAZ PRN Reason: Protocol Last Admin: 06/08/18 18:57 Dose: Not Given Heparin Sodium (Porcine) (Heparin) 5,000 units SC Q12 TAZ PRN Reason: Protocol Last Admin: 06/09/18 10:15 Dose: 5,000 units Cefepime HCl (Maxipime 1gm) 1 gm in 100 mls @ 100 mls/hr IVPB DAILY TAZ PRN Reason: Protocol Last Admin: 06/09/18 10:14 Dose: 100 mls/hr Levalbuterol HCl (Xopenex) 1.25 mg IH [id number] [facility] Last Admin: 06/09/18 07:20 Dose: 1.25 mg Olanzapine (Zyprexa) 20 mg PO DAILY [facility] Last Admin: 06/08/18 10:12 Dose: 20 mg Pantoprazole Sodium (Protonix Ec Tab) 20 mg PO 0600 [facility] Last Admin: 06/09/18 05:48 Dose: 20 mg Prednisone (Prednisone Tab) 10 mg PO DAILY [facility] Last Admin: 06/09/18 10:15 Dose: 10 mg Tramadol/Acetaminophen (Ultracet 37.5/325 Mg) 1 tab PO Q6H PRN PRN Reason: Pain, moderate (4-7) Trazodone HCl (Desyrel) 50 mg PO HS [facility] Last Admin: 06/07/18 23:19 Dose: 50 mg - Labs Labs: 06/09/18 06:45 06/09/18 06:45 PT 14.0 SECONDS (9.4-12.5) H 06/07/18 06:40 INR 1.21 06/07/18 06:40 APTT 27.5 Seconds (25.1-36.5) 06/09/18 06:45 - Constitutional Appears: Non-toxic, No Acute Distress - Head Exam Head Exam: NORMAL INSPECTION - Eye Exam Eye Exam: Normal appearance - ENT Exam ENT Exam: Mucous Membranes Moist - Respiratory Exam Respiratory Exam: Clear to Ausculation Bilateral, NORMAL BREATHING PATTERN - Cardiovascular Exam Cardiovascular Exam: REGULAR RHYTHM - GI/Abdominal Exam GI & Abdominal Exam: Soft, Normal Bowel Sounds. absent: Tenderness - Rectal Exam Rectal Exam: Deferred - Extremities Exam Extremities Exam: Full ROM - Neurological Exam Neurological Exam: Alert, Awake, Oriented x3 - Psychiatric Exam Psychiatric exam: Flat Affect - Skin Skin Exam: Dry, Normal Color Assessment and Plan - Assessment and Plan (Free Text) Assessment: 62F with hx Breast Cancer and COPD recently placed on prednisone and we were consulted for elevated BUN/Cr and concern for GI bleed. #MARILYN on CKD - base line ~2.0 #COPD on prednisone #Breast cancer s/p chemoradiation #Psychiatric disorder #HTN #Liver mass - Breast mets on Bx PLAN: -No obvious GI bleed at this time. Hb slightly lower than previously. Elevated BUN/Cr most likely related to MARILYN and recent steroid use. -Patient has several reasons for anemia, we will continue to monitor for GI bleed. -Continue to monitor for GI bleed. Hb in AM. -If Hb continues to fall without melena, must r/o other sources of bleed, i.e recent liver biopsy, hematologic/oncologic -CT a/p without contrast show enlarged liver, mild ascites. No obvious hematoma reported. -No planned endoscopic procedures at this time. -Continue PPI, half dose in setting of MARILYN and CKD -Continue care per ICU, nephrology, pulm. <Fatoumata,Kovil V - Last Filed: 06/10/18 00:02> Objective - Vital Signs/Intake and Output Vital Signs (last 24 hours): Temp Pulse Resp BP Pulse Ox 99.5 F 100 H 40 H 110/63 96 06/09/18 18:45 06/09/18 18:45 06/09/18 18:45 06/09/18 18:45 06/09/18 18:43 Intake and Output: 06/09/18 06/10/18 18:59 06:59 Intake Total 325 Output Total 250 Balance 75 - Medications Medications: Current Medications Benztropine Mesylate (Cogentin) 0.5 mg PO HS [facility] Last Admin: 06/09/18 22:38 Dose: 0.5 mg Benztropine Mesylate (Cogentin) 0.5 mg PO BID TAZ Heparin Sodium (Porcine) (Heparin) 5,000 units SC Q12 TAZ PRN Reason: Protocol Last Admin: 06/09/18 22:33 Dose: 5,000 units Cefepime HCl (Maxipime 1gm) 1 gm in 100 mls @ 100 mls/hr IVPB DAILY TAZ PRN Reason: Protocol Last Admin: 06/09/18 10:14 Dose: 100 mls/hr Levalbuterol HCl (Xopenex) 1.25 mg IH [id number] [id number] Last Admin: 06/09/18 20:46 Dose: 1.25 mg Lorazepam (Ativan) 1 mg PO TID PRN; Protocol PRN Reason: anxiety/agitation Olanzapine (Zyprexa Zydis) 5 mg PO BID TAZ PRN Reason: Protocol Olanzapine (Zyprexa Zydis) 5 mg PO HS TAZ PRN Reason: Protocol Last Admin: 06/09/18 22:39 Dose: 5 mg Pantoprazole Sodium (Protonix Ec Tab) 20 mg PO 0600 [facility] Last Admin: 06/09/18 05:48 Dose: 20 mg Tramadol/Acetaminophen (Ultracet 37.5/325 Mg) 1 tab PO Q6H PRN PRN Reason: Pain, moderate (4-7) - Labs Labs: 06/09/18 06:45 06/09/18 06:45 PT 14.0 SECONDS (9.4-12.5) H 06/07/18 06:40 INR 1.21 06/07/18 06:40 APTT 27.5 Seconds (25.1-36.5) 06/09/18 06:45 Attending/Attestation - Attestation I have personally seen and examined this patient.: Yes I have fully participated in the care of the patient.: Yes I have reviewed all pertinent clinical information, including history, physical exam and plan: Yes Notes (Text): This is an addendum to GI progress report dictated by the GI Fellow.The patient was seen and examined earlier. Medical records, lab studies, imagings were reviewed. Last 24 hours events reviewed. Agreed with the above treatment plan as outlined in GI Fellow 's notes with the addition of the following On examination patient comfortable and not in distress Follow-up hemoglobin and hematocrit No GI source of blood loss discussed with the Dr. orosco earlier today 06/10/18 00:00
--- NOTE | 2018-06-09 16:25 | PN ---
DATE: 06/09/2018 SUBJECTIVE: The patient is 62 years old, seen and examined, seems to be short of breath. Denies any nausea or vomiting. Eats fair. PHYSICAL EXAMINATION: VITAL SIGNS: She is afebrile, pulse 94, respiration 20, blood pressure 103/53. LUNGS: Bilateral fair airflow. No rhonchi or crackle. HEART: S1 and S2 audible. ABDOMEN: Soft, obese, nontender. No rebound. No guarding. NEUROLOGIC: The patient is awake, alert, oriented, able to communicate. LABORATORY DATA: WBC is 31.4, hemoglobin 7.9, hematocrit 26.3, platelets of 158. Chemistry: Sodium 141, potassium 5.1, chloride 111, CO2 of 17, BUN 120, creatinine 2.8, blood sugar of 120. Alkaline phosphatase is 446. Blood cultures and urine cultures are negative. ASSESSMENT: 1. Metastatic breast cancer. 2. Morbid obesity. 3. Abnormal liver function tests secondary to metastasis. 4. History of bipolar disorder. 5. Bilateral pulmonary nodule. 6. CT guided liver biopsy positive for metastatic breast cancer. PLAN: The patient is short of breath. We will give her a dose of Lasix. She is anemic, will be given 2 blood transfusions. We will discontinue IV fluid. Awaiting psych input. We will follow electrolyte and CBC in a.m. Discussed with her son who is by the bedside. Continue her on cefepime. The patient has persistent leukocytosis, doubt it is secondary to steroid. We will discontinue that since she is not actively wheezing. We will discuss with Dr. Mariano, probably chemotherapy once she goes through this acute event and her kidney function improves. Jessica Flores MD
--- NOTE | 2018-06-09 16:58 | PN ---
DATE: 06/09/2018 PULMONARY PROGRESS NOTE REFERRING PHYSICIAN: Jessica Flores MD. SUBJECTIVE: She is lying in the bed. Family is at bedside. Night was unremarkable. No headache. No rhinitis. Short of breath with exertion. No chest pain. Has a poor appetite. No abdominal pain. Has some leg swelling. OBJECTIVE: GENERAL: In no acute distress. VITAL SIGNS: Temperature is 98, heart rate is 102, respiratory rate is 22, blood pressure 110/60, pulse ox 93% on room air. HEENT: Moist mucous membrane. Crowded airway. NECK: Supple. No JVD. LUNGS: Have a scattered rhonchi. Decreased breath sounds on the bases. HEART: S1 and S2. ABDOMEN: Soft, nontender. No organomegaly. EXTREMITIES: Does have trace edema. NEUROLOGICAL: Awake and alert. Follows simple command. MEDICATIONS: She is on Cogentin 1 mg, heparin 5000 units subcu every 12 hours, clonazepam 0.5 mg twice a day p.r.n., cefepime 1 g IV daily, Protonix 20 mg daily, Ultracet is 37.5/325 one tab every 6 hours p.r.n., Xopenex inhaled every 6 hours, Zyprexa 20 mg daily. LABORATORY DATA: Shows hemoglobin 7.9, hematocrit 26.3, WBC is 31.4, platelet count is 158. PTT is 28. Sodium 141, potassium 5.1, chloride 111, bicarbonate 17, BUN 120, creatinine 2.8, glucose 120, calcium is 7.9, AST 221, ALT 39, alk phos is 446, albumin is 2.5, TSH 0.45. IMPRESSION AND PLAN: Probably metastatic breast cancer to the lungs and liver with small effusion, end up with acute renal failure, sepsis. There is may be component of pneumonia, hypertension, bipolar disorder, chronic lung disease, may have sleep apnea syndrome. Case discussed with family at bedside. All the questions answered. Continue bronchodilator. Keep head at 45 degrees. Sleep apnea precaution. Refusing to use continuous positive airway pressure/bilevel positive airway pressure. Antibiotics as per Infectious Diseases. Hematology/Oncology followup. Gastric prophylaxis, deep venous thrombosis prophylaxis. Avoid nephrotoxic drugs. Thank you and we will follow with you. Dee German MD [facility] # [id number]
--- NOTE | 2018-06-09 16:59 | PN ---
DATE: 06/09/2018 SUBJECTIVE: The patient is seen in [address] [place] [address]. She is lying in bed. She is awake, she is alert. As per the son who is at bedside, earlier she had some left-sided abdominal pain. Currently, she denies any pain. She appears to be breathing very rapidly and shallow breathing, but she denies any shortness of breath. PHYSICAL EXAMINATION: GENERAL: Morbidly obese elderly lady lying in bed. VITAL SIGNS: Blood pressure 110/60, heart rate 92, respiratory rate 20-24, temperature 99.2. HEENT: Normocephalic, atraumatic, positive pallor. NECK: Supple, no JVD. LUNGS: Bilateral equal air entry, bilateral equal expansion, no rales appreciated anteriorly. CARDIAC: S1 and S2, regular rate and rhythm, no murmur, no rub. ABDOMEN: Obese, distended, soft, hyperdynamic bowel sounds. EXTREMITIES: No lower extremity edema. INTAKE AND OUTPUT: 2700/880. LABORATORY DATA: WBC 31, hemoglobin 7.9, hematocrit 26, platelets 158. Sodium 141, potassium 5.1, chloride 111, CO2 of 17, BUN 120, creatinine 2.8, glucose 120, calcium 7.9. Total bili 1.2, AST 221, ALT 39, albumin 2.5. Blood cultures, no growth. Blood transfusion of 1 unit. CURRENT MEDICATIONS: Heparin, Klonopin, Maxipime 1 g daily, Protonix, Ultracet, Xopenex, Zyprexa. The patient got 1 g of vancomycin yesterday. She is receiving normal saline at 150 mL/hour. ASSESSMENT: 1. Acute kidney injury, prerenal azotemia versus hepatorenal versus gastrointestinal blood loss versus internal bleeding. 2. Hyperkalemia secondary to acute kidney injury, resolving. 3. Bipolar disorder. 4. Metastatic breast cancer with bone metastasis and lung metastasis. 5. Morbid obesity. 6. Severe anemia. 7. Leukocytosis,? sepsis versus related to steroids. PLAN: 1. Discontinue IV fluids. The patient has received more than 8 liters of fluid since admission. 2. Agree with blood transfusion. 3. Avoid nephrotoxins. 4. Follow up liver biopsy. Loreta Giron MD [facility] # [id number]
[2018-06-09] MEDS ORDERED: OLANZapine 5 mg Disintegrating Tab PO SCH (22:00)
[2018-06-10] MEDS: Levalbuterol 1.25 MG/3 ML Inhal Soln UD IH SCH ×4 (02:42→19:35)
--- NOTE | 2018-06-10 03:41 | CON ---
DATE: 06/09/2018 HISTORY OF PRESENT ILLNESS: In short, the patient is a 62-year-old female with multiple medical comorbidities including metastatic breast cancer. The patient presented to emergency room on 06/06/2018 for evaluation of fatigue and shortness of breath. The patient had history of mental illness. The patient is on psychotropic medication, that is why this keno writer/runner was involved into the patient care. The patient was seen and examined, discussed with nursing staff as well as note from the medical staff as well as Infectious Disease, chief chemist as well as GI team, renal team. Hematology/Oncology team reviewed. The patient was seen and examined. The patient had 2 of her sons next to her. Babatunde and Cristobal. The patient gave permission to speak in front of them. The patient is secretive and guarded about her previous psychiatric history, was giving yes/no answers. The patient said, "talk to my doctor, Dr. Campoverde." The patient also said she does not want to talk, but this keno writer/runner can obtain information from her psychiatrist and primary care physician, Dr. Flores. The patient also gave permission to talk to her sons. As per history, the patient was on Zyprexa 20 mg daily. As per son's report, the patient has history of schizophrenia, was doing well on Zyprexa for many years. Recently the patient started to experience shakiness over upper extremities as well as lip smacking and tremor of her jaw. Family is concerned about possible side effects from the medications. The patient is filling her medication at [facility], which was contacted. Medication list obtained. As per history, most recent medication the patient filled was benztropine 1 mg at the daytime. The patient filled that medication in 01/2018. The patient was on Klonopin 0.5 mg daily. The patient filled that medication on 05/18/2018. Prescriber is Dr. Dr. Carlitos Campoverde. The patient was on trazodone 50 mg at the nighttime. The patient filled that medication on 05/18/2018, prescriber is Dr. Campoverde, Zyprexa 20 mg daily. The patient filled that medication on 05/18/2018 by the same prescriber, Dr. Campoverde. The patient's family is not sure if patient has history of suicidal attempts or when was the most recent psychiatric admission, but as per family, the patient was not hospitalized for years. PHYSICAL EXAMINATION: VITAL SIGNS: Going back to the patient's presentation, vital signs reviewed. Temperature 99.2, pulse is 93, blood pressure 115/82, respiration 20, oxygen saturation is 97. MEDICATIONS: Reviewed. The patient is on Cogentin 1 mg at the daytime, but this keno writer/runner would discontinue that dose. We will give smaller doses, but most frequent, 0.5 mg twice a day and at the nighttime. The patient is on antibiotics. The patient is on heparin, Xopenex. Instead of Klonopin which is very long acting, this keno writer/runner will switch the patient on Ativan 1 mg 3 times a day as needed for anxiety and agitation. Considering the fact that the patient was on high dose of Zyprexa 20 mg daily once a day, this keno writer/runner would like to decrease the dose and give more frequent medication, Zyprexa Zydis 5 mg twice a day and at the nighttime, Protonix also was started by medical team. The patient is on tramadol. Labs reviewed. WBC elevated at 31.4, hemoglobin and hematocrit is 7.9 and 26.3. The patient had blood transfusion today. Chemistry also reviewed. Potassium was 5.1. ALT is elevated 221. BUN and creatinine is elevated at 120 and 2.8. TSH is low. Granulocytes level is high at 29.62. The patient was found to have metastatic cancer in liver. The patient also has bilateral pulmonary nodes as well as possible sepsis. Infectious Disease was on board. MENTAL STATUS EXAMINATION: As this keno writer/runner described, the patient is alert, guarded, intense eye contact. Speech was underproductive, yes/no answers. Thought process concrete. Thought content, the patient obviously paranoid and guarded and psychotic. The patient did not answer questions about suicidal ideation or homicidal ideation. Insight and judgment seems to be limited. Impulses are well controlled so far. IMPRESSION: As per history, schizoaffective disorder versus schizophrenia. The patient has multiple medical issues as of now, rule out mood disorder due to general medical condition, rule out adjustment disorder in regards of the medication. This keno writer/runner would like to rule out extrapyramidal symptoms, but during this keno writer/runner evaluation, the patient did not have any rigidity, but has tremor as per family. PLAN: Medications were confirmed by the patient's pharmacy. Collateral were obtained from the patient's family. The patient was seen by Dr. Campoverde, phone number is [phone]. Psychiatric team called the office, but office was closed. We will contact them again on Tuesday. We will follow up on this patient over the weekend. Should you have any questions, give me a call back. This keno writer/runner decreased the dose of Zyprexa to 5 mg three times a day, Klonopin was discontinued. Ativan was started. Trazodone does not need to be resumed as of now, Cogentin 0.5 mg three times a day to be given together with Zyprexa. Care of this patient took more than 45 minutes of this keno writer/runner's time. Thank you very much for letting me participate in care of your patient. Liseth Kohli MD
[2018-06-10] MEDS: Pantoprazole 20 mg EC Tab PO SCH (06:48)
--- NOTE | 2018-06-10 06:48 | CP.PCM.PN ---
Subjective - Date & Time of Evaluation Date of Evaluation: 06/10/18 Time of Evaluation: 06:15 - Subjective Subjective: No distress, shallow breathing,daughter at bedside Reason for consultation and follow up: Cardiac evaluation for shortness of breath, rule out congestive heart failure,acute kidney injury,history of breast cancer Seen and examined by me and Dr. Mar Objective - Vital Signs/Intake and Output Vital Signs (last 24 hours): Temp Pulse Resp BP Pulse Ox 99.5 F 100 H 40 H 110/63 96 06/09/18 18:45 06/09/18 18:45 06/09/18 18:45 06/09/18 18:45 06/09/18 18:43 Intake and Output: 06/09/18 06/10/18 18:59 06:59 Intake Total 325 Output Total 250 Balance 75 - Medications Medications: Current Medications Benztropine Mesylate (Cogentin) 0.5 mg PO HS [facility] Last Admin: 06/09/18 22:38 Dose: 0.5 mg Benztropine Mesylate (Cogentin) 0.5 mg PO BID TAZ Heparin Sodium (Porcine) (Heparin) 5,000 units SC Q12 TAZ PRN Reason: Protocol Last Admin: 06/09/18 22:33 Dose: 5,000 units Cefepime HCl (Maxipime 1gm) 1 gm in 100 mls @ 100 mls/hr IVPB DAILY TAZ PRN Reason: Protocol Last Admin: 06/09/18 10:14 Dose: 100 mls/hr Levalbuterol HCl (Xopenex) 1.25 mg IH [id number] Last Admin: 06/10/18 02:42 Dose: 1.25 mg Lorazepam (Ativan) 1 mg PO TID PRN; Protocol PRN Reason: anxiety/agitation Olanzapine (Zyprexa Zydis) 5 mg PO BID TAZ PRN Reason: Protocol Olanzapine (Zyprexa Zydis) 5 mg PO HS TAZ PRN Reason: Protocol Last Admin: 06/09/18 22:39 Dose: 5 mg Pantoprazole Sodium (Protonix Ec Tab) 20 mg PO 0600 [facility] Last Admin: 06/09/18 05:48 Dose: 20 mg Tramadol/Acetaminophen (Ultracet 37.5/325 Mg) 1 tab PO Q6H PRN PRN Reason: Pain, moderate (4-7) - Labs Labs: 06/09/18 06:45 06/09/18 06:45 PT 14.0 SECONDS (9.4-12.5) H 06/07/18 06:40 INR 1.21 06/07/18 06:40 APTT 27.5 Seconds (25.1-36.5) 06/09/18 06:45 - Constitutional Appears: No Acute Distress - ENT Exam ENT Exam: Mucous Membranes Dry - Respiratory Exam Respiratory Exam: Decreased Breath Sounds, NORMAL BREATHING PATTERN - Cardiovascular Exam Cardiovascular Exam: +S1, +S2 Additional comments: right chest port - GI/Abdominal Exam GI & Abdominal Exam: Soft, Normal Bowel Sounds - Extremities Exam Additional comments: 2+edema - Neurological Exam Neurological Exam: Alert, Awake, Oriented x3 - Psychiatric Exam Psychiatric exam: Normal Affect - Skin Skin Exam: Dry, Warm Assessment and Plan - Assessment and Plan (Free Text) Assessment: A 62 year old female,morbidly obese who came in to the ER due to worsening shortness of breath and fatigue. She was recently discharged 06/01/18 from [facility] due to acute renal failure and nodules in the liver. She has history of left lumpectomy,breast cancer, chemotherapy 08/2016, history of hypertension,COPD, bipolar disorder,depression,hyperlipidemia, gout,renal insufficiency. Recent VQ scan at [facility] negative for pulmonary embolism.CT of chest showed multiple pulmonary nodules.Recent ECHO LVEF 81%, LV function normal. Low hemoglobin, transfused 1 unit PRBC yesterday.Metastatic breast cancer to liver and lungs. Plan: Post blood transfusion of 1 unit PRBC repeat H/H-7.9/26.3 Consider transfusing 1 more unit of PRBC Tachypneic, on nasal cannula, refusing BIPAP Transferred to telemetry unit yesterday (2R) Cardiac status stable Heart rate and blood pressure controlled Continue current treatment Continue current medications Will follow up Plan and treatment discussed with Dr. Mar
[2018-06-10 08:07] LABS: HEMOGLOBIN 8.4 g/dL (12.0-16.0); MEAN CELL VOLUME 76.4 fl (80.0-105.0); MEAN CORPUSCULAR HEMOGLOBIN 23.9 pg (25.0-35.0); MEAN CORPUSCULAR HGB CONC 31.3 g/dl (31.0-37.0); MEAN PLATELET VOLUME 9.8 fl (7.0-11.0); PLATELET COUNT 153 10^3/uL (120.0-450.0); RBC 3.51 10^6/uL (3.5-6.1); RED CELL DISTRIBUTION WIDTH 18.2 % (11.5-14.5)
[2018-06-10 08:13] LABS: WHITE BLOOD COUNT 28.6 10^3/ul (4.5-11.0)
[2018-06-10 08:14] LABS: TOTAL NUMBER OF RETICS COUNTED 0 (0.5-4.0)
[2018-06-10 08:33] LABS: GRAN % 92.8 % (50.0-68.0); LYMPH % 4.3 % (22.0-35.0)
[2018-06-10 08:34] LABS: BASO # 0.01 K/mm3 (0.0-2.0); EOS # 0.4 (0.0-0.7); EOS % 1.3 % (1.5-5.0); GRAN # 26.35 (1.4-6.5); LYMPH # 1.2 (1.2-3.4); MONO # 0.5 (0.1-0.6); MONO % 1.6 % (1.0-6.0)
[2018-06-10 08:35] LABS: ANISOCYTOSIS 1+; BAND 2 % (0-2); HYPOCHROMIA 1+; LYMPHOCYTE 6 % (22.0-35.0); MONOCYTE 2 % (1.0-6.0); NEUTROPHIL 90 % (50.0-70.0); PLATELET ESTIMATE NORMAL (NORMAL)
[2018-06-10 08:36] LABS: MICROCYTOSIS 2+
[2018-06-10] MEDS: Cefepime 1gm in NS 100ml 1 GM/100 ML BAG IVPB SCH (10:00)
[2018-06-10] MEDS ORDERED: OLANZapine 5 mg Disintegrating Tab PO SCH (10:00)
[2018-06-10] MEDS: POLYETHYLENE GLYCOL 3350 17 GM/Dose PACKET PO SCH (12:55)
--- NOTE | 2018-06-10 14:15 | CP.PCM.PN ---
Subjective - Date & Time of Evaluation Date of Evaluation: 06/10/18 Time of Evaluation: 12:00 - Subjective Subjective: Patient still has some tachypnea, but no fevers, comfortable in bed, no chest pain. Objective - Vital Signs/Intake and Output Vital Signs (last 24 hours): Temp Pulse Resp BP Pulse Ox 99.1 F 89 18 111/72 98 06/10/18 04:00 06/10/18 04:00 06/10/18 04:00 06/10/18 04:00 06/10/18 04:00 - Medications Medications: Current Medications Benztropine Mesylate (Cogentin) 0.5 mg PO HS [facility] Last Admin: 06/09/18 22:38 Dose: 0.5 mg Benztropine Mesylate (Cogentin) 0.5 mg PO BID TAZ Heparin Sodium (Porcine) (Heparin) 5,000 units SC Q12 TAZ PRN Reason: Protocol Last Admin: 06/09/18 22:33 Dose: 5,000 units Cefepime HCl (Maxipime 1gm) 1 gm in 100 mls @ 100 mls/hr IVPB DAILY TAZ PRN Reason: Protocol Last Admin: 06/09/18 10:14 Dose: 100 mls/hr Levalbuterol HCl (Xopenex) 1.25 mg IH [id number] [id number] Last Admin: 06/10/18 07:17 Dose: 1.25 mg Lorazepam (Ativan) 1 mg PO TID PRN; Protocol PRN Reason: anxiety/agitation Olanzapine (Zyprexa Zydis) 5 mg PO BID TAZ PRN Reason: Protocol Olanzapine (Zyprexa Zydis) 5 mg PO HS TAZ PRN Reason: Protocol Last Admin: 06/09/18 22:39 Dose: 5 mg Pantoprazole Sodium (Protonix Ec Tab) 20 mg PO 0600 [facility] Last Admin: 06/10/18 06:48 Dose: 20 mg Tramadol/Acetaminophen (Ultracet 37.5/325 Mg) 1 tab PO Q6H PRN PRN Reason: Pain, moderate (4-7) - Labs Labs: 06/09/18 06:45 06/09/18 06:45 PT 14.0 SECONDS (9.4-12.5) H 06/07/18 06:40 INR 1.21 06/07/18 06:40 APTT 27.5 Seconds (25.1-36.5) 06/09/18 06:45 - Constitutional Appears: Chronically Ill - Head Exam Head Exam: NORMAL INSPECTION - Respiratory Exam Respiratory Exam: Decreased Breath Sounds - Cardiovascular Exam Cardiovascular Exam: +S1, +S2 - GI/Abdominal Exam GI & Abdominal Exam: Soft. absent: Tenderness Assessment and Plan - Assessment and Plan (Free Text) Plan: Assessment probable sepsis from bilateral HCAP morbid obesity with BMI 47 HTN COPD depression with bipolar disorder chronic renal failure breast cancer with metastases S/P chemotherapy and radiation therapy S/P left lumpectomy Plan Blood cx are negative - will d/c Vancomycin and continue Cefepime (day 4) to complete 4-7 days of therapy will continue to monitor clinically overall prognosis is poor
--- NOTE | 2018-06-10 17:12 | PN ---
DATE: 06/10/2018 SUBJECTIVE: The patient is 62 years old, seen and examined, lying in bed, seems to be short of breath even at rest. No fever or chills. No cough or congestion. The patient received one blood transfusion yesterday and relatively looked pale. PHYSICAL EXAMINATION VITAL SIGNS: She is afebrile, pulse 89, respirations 18, blood pressure 111/72. LUNGS: Bilateral fair airflow. No rhonchi or crackles heard. HEART: S1 and S2 audible. Tachycardic. ABDOMEN: Soft, obese, nontender. No rebound. No guarding. NEUROLOGIC: She is awake and alert, sleepy, but arousable, answered appropriately. Moves all extremities. LABORATORY DATA: WBC is 28.6, hemoglobin 8.4, hematocrit 26.8, platelets 153. Chemistry: Sodium 138, potassium 5.2, chloride 110, CO2 of 16, BUN 20, creatinine 2.6, blood sugar of 102, calcium 8, alkaline phosphatase is 446. Daughter who was by the bedside complained that she has been constipated for the last three days. ASSESSMENT: 1. Symptomatic anemia status post one blood transfusion. We will arrange for one blood transfusion today. 2. Metastatic breast cancer. Liver biopsy shows region of metastasis is from breast. 3. Leukocytosis, etiology is still unclear her blood culture and urine cultures are negative. 4. History of bipolar disorder. 5. Morbid obesity. PLAN: So, we will continue the patient on cefepime. She is on Protonix. We will give her a dose of MiraLax and she has been started on Zyprexa 5 mg twice a day and 5 mg at bedtime. The patient will receive one blood transfusion today and we will follow up on electrolytes and CBC, CMP in the a.m. Jessica Flores MD
[2018-06-10] MEDS ORDERED: Benzocaine/Menthol (Cepacol) Lozenge MT PRN (18:45)
[2018-06-11] MEDS: Levalbuterol 1.25 MG/3 ML Inhal Soln UD IH SCH ×4 (02:00→20:30)
--- NOTE | 2018-06-11 06:52 | CP.PCM.PN ---
Subjective - Date & Time of Evaluation Date of Evaluation: 06/11/18 Time of Evaluation: 06:20 - Subjective Subjective: Awake, mild shortness of breath at rest, on nasal cannula, son sleeping at bedside Reason for consultation and follow up: Cardiac evaluation for shortness of breath, rule out congestive heart failure,acute kidney injury,history of breast cancer with metastasis to liver and lungs Seen and examined by me and Dr. Mar Objective - Vital Signs/Intake and Output Vital Signs (last 24 hours): Temp Pulse Resp BP Pulse Ox 98.4 F 101 H 19 116/64 96 06/11/18 00:00 06/11/18 00:00 06/11/18 00:00 06/11/18 00:00 06/11/18 00:00 Intake and Output: 06/10/18 06/11/18 18:59 06:59 Intake Total 30 Balance 30 - Medications Medications: Current Medications Benzocaine/Menthol (Cepacol Sore Throat) 1 rosey MT Q2H PRN PRN Reason: Sore Throat Benztropine Mesylate (Cogentin) 0.5 mg PO HS [facility] Last Admin: 06/10/18 22:38 Dose: 0.5 mg Benztropine Mesylate (Cogentin) 0.5 mg PO BID [facility] Last Admin: 06/10/18 18:27 Dose: 0.5 mg Docusate Sodium (Colace) 200 mg PO DAILY [facility] Last Admin: 06/10/18 12:55 Dose: 200 mg Heparin Sodium (Porcine) (Heparin) 5,000 units SC Q12 TAZ PRN Reason: Protocol Last Admin: 06/10/18 22:38 Dose: 5,000 units Cefepime HCl (Maxipime 1gm) 1 gm in 100 mls @ 100 mls/hr IVPB DAILY [facility] PRN Reason: Protocol Last Admin: 06/10/18 10:00 Dose: 100 mls/hr Levalbuterol HCl (Xopenex) 1.25 mg IH [id number] [facility] Last Admin: 06/11/18 02:00 Dose: Not Given Lidocaine HCl (Lidocaine 2% Viscous) 15 ml PO Q3H PRN PRN Reason: Sore Throat Last Admin: 06/10/18 18:51 Dose: 15 ml Lorazepam (Ativan) 1 mg PO TID PRN; Protocol PRN Reason: anxiety/agitation Olanzapine (Zyprexa) 2.5 mg PO Q12 [facility] PRN Reason: Protocol Last Admin: 06/10/18 22:38 Dose: 2.5 mg Pantoprazole Sodium (Protonix Ec Tab) 20 mg PO 0600 [facility] Last Admin: 06/10/18 06:48 Dose: 20 mg Polyethylene Glycol (Miralax) 17 gm PO DAILY [facility] Last Admin: 06/10/18 12:55 Dose: 17 gm Tramadol/Acetaminophen (Ultracet 37.5/325 Mg) 1 tab PO Q6H PRN PRN Reason: Pain, moderate (4-7) - Labs Labs: 06/10/18 06:45 06/10/18 06:45 PT 14.0 SECONDS (9.4-12.5) H 06/07/18 06:40 INR 1.21 06/07/18 06:40 APTT 27.5 Seconds (25.1-36.5) 06/09/18 06:45 - Constitutional Appears: No Acute Distress - Eye Exam Eye Exam: Normal appearance - ENT Exam ENT Exam: Mucous Membranes Moist - Respiratory Exam Respiratory Exam: Decreased Breath Sounds, Rhonchi, NORMAL BREATHING PATTERN - Cardiovascular Exam Cardiovascular Exam: +S1, +S2 Additional comments: right chest port - GI/Abdominal Exam GI & Abdominal Exam: Soft, Normal Bowel Sounds - Extremities Exam Additional comments: 1-2+edema - Neurological Exam Neurological Exam: Alert, Awake - Psychiatric Exam Psychiatric exam: Flat Affect - Skin Skin Exam: Dry, Warm Assessment and Plan - Assessment and Plan (Free Text) Assessment: A 62 year old female,morbidly obese who came in to the ER due to worsening shortness of breath and fatigue. She was recently discharged 06/01/18 from [facility] [place] due to acute renal failure and nodules in the liver. She has history of left lumpectomy,breast cancer, chemotherapy 08/2016, history of hypertension,COPD, bipolar disorder,depression,hyperlipidemia, gout,renal insufficiency. [place] [facility] [place].CT of chest showed multiple pulmonary nodules.Metastatic breast cancer to liver and lungs. Recent ECHO LVEF 81%, LV function normal. Low hemoglobin, transfused 1 unit PRBC .Repeat H/H-7.9/ 26.3. Transfused another unit of PRBC. Plan: Post blood transfusion of another 1 unit PRBC yesterday Repeat H/H today -8.4/26.8 Shortness of breath at rest, on nasal cannula Cardiac status stable Heart rate and blood pressure controlled Pulmonary and Onclogy on consult Continue current treatment Continue current medications Will follow up Plan and treatment discussed with Dr. Mar
[2018-06-11] MEDS: Pantoprazole 20 mg EC Tab PO SCH (06:57)
[2018-06-11 08:19] LABS: BASO # 0.03 K/mm3 (0.0-2.0); BASO % 0.1 % (0.0-3.0); EOS # 0.5 (0.0-0.7); EOS % 1.5 % (1.5-5.0); GRAN # 28.89 (1.4-6.5); GRAN % 91.4 % (50.0-68.0); HEMOGLOBIN 10.7 g/dL (12.0-16.0); LYMPH # 1.7 (1.2-3.4); LYMPH % 5.4 % (22.0-35.0); MEAN CELL VOLUME 77.3 fl (80.0-105.0); MEAN CORPUSCULAR HEMOGLOBIN 24.5 pg (25.0-35.0); MEAN CORPUSCULAR HGB CONC 31.7 g/dl (31.0-37.0); MEAN PLATELET VOLUME 10.3 fl (7.0-11.0); MONO # 0.5 (0.1-0.6); MONO % 1.6 % (1.0-6.0); RBC 4.37 10^6/uL (3.5-6.1); RED CELL DISTRIBUTION WIDTH 18.5 % (11.5-14.5)
[2018-06-11 08:25] LABS: WHITE BLOOD COUNT 31.6 10^3/ul (4.5-11.0)
[2018-06-11 08:31] LABS: ALB/GLOB RATIO 0.9 (1.1-1.8); ALBUMIN 2.6 g/dL (3.0-4.8); CALCIUM 8.1 mg/dL (8.4-10.5)
[2018-06-11] MEDS: POLYETHYLENE GLYCOL 3350 17 GM/Dose PACKET PO SCH (09:10)
--- NOTE | 2018-06-11 09:50 | PN ---
DATE: 06/10/2018 FOLLOWUP NOTE SUBJECTIVE: She is comfortable in bed, in no acute distress. Denies any pain. Denies any shortness of breath. No chest pain. She received 1 unit of blood transfusion yesterday. Hemoglobin improved to 8.4 today. No bleeding from any site. Renal functions improved. REVIEW OF SYSTEMS: As per HPI. She is not able to ambulate. Not willing to sit up on the chair. No nausea. No vomiting. Appetite poor, but able to eat. Rest of 12-point review of systems reviewed negative. MEDICATIONS: Cogentin 0.5 mg p.o. at bedtime, 0.5 mg p.o. b.i.d.; cefepime every 8 hours; Colace mg daily, heparin 5000 every 12, Xopenex every 6 hours, Lidocaine viscous, Ativan 1 mg p.o. t.i.d., Zyprexa 2.5 mg p.o. every 12 hours, Protonix 20 mg daily, MiraLax. LABORATORY DATA: White count 28,000, hemoglobin 8.4, hematocrit 26.8, platelet count 53. Sodium 138, potassium 5.2, creatinine 2.6. PHYSICAL EXAMINATION: GENERAL: Comfortable in bed, in no acute distress. VITAL SIGNS: Temperature 98.4, heart rate is 100 per minute, blood pressure 116/64, respiratory rate 19 per minute, oxygen saturation 96% on nasal cannula. HEENT: Pallor positive. NECK: No lymphadenopathy. CHEST: Air entry present and equal, bilateral. No added sounds. CARDIOVASCULAR: S1, S2 normal. No murmur. No gallop. ABDOMEN: Soft, nontender. No hepatosplenomegaly. EXTREMITIES: 1+ edema. DEDICATED DRIVER: Alert and oriented x3. No focal sensorimotor deficits. SPINE: Nontender. ASSESSMENT: 1. Stage IV breast cancer, metastatic lesions in the liver and the lung. 2. Deconditioning. 3. Sepsis. 4. Acute on chronic renal insufficiency. 5. Leukocytosis, anemia. PLAN: We will give 1 unit of PRBC today for hemoglobin of 8.4. Encouraged her for bedside physical therapy, out of bed to chair. Discussed with the staff nurse. Blood culture, urine culture negative. She is currently on IV antibiotic cefepime. ID following. Continue DVT prophylaxis with heparin 5000 every 12 hours. Discussed with the daughter at bedside plan. She will need physical therapy for deconditioning. Chemo will be initiated as outpatient for triple-negative breast cancer. Discussed with Dr. Flores. Maricruz Mariano MD
--- NOTE | 2018-06-11 09:56 | PN ---
DATE: 06/11/2018 FOLLOWUP NOTE SUBJECTIVE: She is comfortable in bed, in no acute distress. Hemoglobin improved to 10.7, received 1 unit of blood transfusion yesterday. Blood culture, urine culture negative. She still has tachypnea, on oxygen by nasal cannula. She has baseline shortness of breath, even prior to stage IV disease. Renal functions improved, creatinine to 2.6 today. No chest pain. Appetite is good. REVIEW OF SYSTEMS: As per HPI. Rest of 12-point review of systems reviewed negative. PHYSICAL EXAMINATION: GENERAL: Comfortable in bed, in no acute distress. VITAL SIGNS: Temperature 98.8, heart rate 83 per minute, blood pressure 109/80, respiratory rate 18 per minute, oxygen saturation 98% on oxygen by nasal cannula. Morbidly obese. HEENT: Pallor positive. NECK: No lymphadenopathy. CHEST: Air entry present and equal, bilateral. No added sounds. CARDIOVASCULAR: S1, S2 normal. No murmur. No gallop. ABDOMEN: Soft, nontender, obese. EXTREMITIES: 1+ edema. SPINE: Nontender. CREDIT REPORTER: Alert and oriented x3. No focal sensorimotor deficits. LABORATORY DATA: Sodium 135, potassium 4.5, BUN 132, creatinine 2.6. White count 31.6, hemoglobin 10.7, hematocrit 33, platelet 140. Urine culture and blood culture negative. MEDICATIONS: Reviewed. ASSESSMENT: 1. Stage IV breast cancer, metastatic lesion in the liver and the lung. 2. Tachypnea. 3. Anemia. 4. Acute on chronic renal insufficiency. 5. Morbid obesity, deconditioning. PLAN: We will continue IV antibiotic, cefepime. White count increased to 31,000 again. No obvious source of infection. Cultures negative. No pain. Currently on Protonix. Continue that. Heparin prophylaxis for DVT. Continue bronchodilators. Discussed with the family at bedside. Encouraged physical therapy. Maricruz Mariano MD 12 noon : developed tachycardia, tachypnea, hypotension after sitting at the edge of the bed. BP dropped to 98 SBP. ICU consult requested. Dr. Brennan evaluated. She will be transferred to ICU. [facility]
--- NOTE | 2018-06-11 10:21 | CP.PCM.PN ---
Subjective - Date & Time of Evaluation Date of Evaluation: 06/11/18 Time of Evaluation: 10:00 - Subjective Subjective: Feeling a little better, no fevers, no increased cough, eating better, no nausea , no diarrhea. Objective - Vital Signs/Intake and Output Vital Signs (last 24 hours): Temp Pulse Resp BP Pulse Ox 98.5 F 107 H 104 H 113/75 98 06/10/18 13:53 06/10/18 13:53 06/10/18 13:53 06/10/18 13:53 06/10/18 04:00 Intake and Output: 06/10/18 06/10/18 06:59 18:59 Intake Total 400 0 Output Total 500 Balance -100 0 - Medications Medications: Current Medications Benztropine Mesylate (Cogentin) 0.5 mg PO HS [facility] Last Admin: 06/09/18 22:38 Dose: 0.5 mg Benztropine Mesylate (Cogentin) 0.5 mg PO BID [facility] Last Admin: 06/10/18 10:00 Dose: 0.5 mg Docusate Sodium (Colace) 200 mg PO DAILY [facility] Last Admin: 06/10/18 12:55 Dose: 200 mg Heparin Sodium (Porcine) (Heparin) 5,000 units SC Q12 TAZ PRN Reason: Protocol Last Admin: 06/10/18 10:00 Dose: 5,000 units Cefepime HCl (Maxipime 1gm) 1 gm in 100 mls @ 100 mls/hr IVPB DAILY [facility] PRN Reason: Protocol Last Admin: 06/10/18 10:00 Dose: 100 mls/hr Levalbuterol HCl (Xopenex) 1.25 mg IH [id number] [facility] Last Admin: 06/10/18 13:06 Dose: 1.25 mg Lorazepam (Ativan) 1 mg PO TID PRN; Protocol PRN Reason: anxiety/agitation Olanzapine (Zyprexa) 2.5 mg PO Q12 TAZ PRN Reason: Protocol Pantoprazole Sodium (Protonix Ec Tab) 20 mg PO 0600 [facility] Last Admin: 06/10/18 06:48 Dose: 20 mg Polyethylene Glycol (Miralax) 17 gm PO DAILY [facility] Last Admin: 06/10/18 12:55 Dose: 17 gm Tramadol/Acetaminophen (Ultracet 37.5/325 Mg) 1 tab PO Q6H PRN PRN Reason: Pain, moderate (4-7) - Labs Labs: 06/10/18 06:45 06/10/18 06:45 PT 14.0 SECONDS (9.4-12.5) H 06/07/18 06:40 INR 1.21 06/07/18 06:40 APTT 27.5 Seconds (25.1-36.5) 06/09/18 06:45 - Constitutional Appears: Chronically Ill - Head Exam Head Exam: NORMAL INSPECTION - ENT Exam ENT Exam: Mucous Membranes Moist - Respiratory Exam Respiratory Exam: Decreased Breath Sounds Additional comments: right anterior chest wall port in place - Cardiovascular Exam Cardiovascular Exam: +S1, +S2 - GI/Abdominal Exam GI & Abdominal Exam: Soft. absent: Tenderness Assessment and Plan - Assessment and Plan (Free Text) Plan: Assessment probable sepsis from bilateral HCAP, clinically improving morbid obesity with BMI 47 HTN COPD depression with bipolar disorder chronic renal failure breast cancer with metastases S/P chemotherapy and radiation therapy S/P left lumpectomy Plan Blood cx are negative - now off Vancomycin and continue Cefepime (day 5) to complete 4-7 days of therapy will continue to monitor clinically overall prognosis is poor
[2018-06-11] MEDS ORDERED: Sod Polystyrene Sulf 15 gm/60 ml Susp PO ONE (11:00)
[2018-06-11] MEDS: Cefepime 1gm in NS 100ml 1 GM/100 ML BAG IVPB SCH (13:02)
[2018-06-11 13:16] LABS: ARTERIAL BLOOD GAS HCO3 12.1 mmol/L (21-28); ARTERIAL BLOOD GAS HEMOGLOBIN 11.2 g/dL (11.7-17.4); ARTERIAL BLOOD GAS O2 CAPACITY 15.3 mL/dl (16-24); ARTERIAL BLOOD GAS O2 CONTENT 15.1 ML/dl (15-23); ARTERIAL BLOOD GAS O2 SAT 98.8 % (95-98); ARTERIAL BLOOD GAS PCO2 20 mm/Hg (35-45); ARTERIAL BLOOD GAS PH 7.39 (7.35-7.45); ARTERIAL BLOOD GAS TCO2 12.7 mmol.L (22-28)
[2018-06-11] MEDS ORDERED: Albumin Human 25% (12.5 gm/50 ml) IV ONE (15:34)
--- NOTE | 2018-06-11 16:07 | PN ---
DATE: 06/11/2018 SUBJECTIVE: Seen in the ICU. The patient is seen lying in bed. She is very tachypneic. She is awake. She is alert. She denies any nausea or vomiting. She complains of some heaviness of her breathing, but she denies any chest pain. Sons are at bedside. She appears swollen. She has lower extremity edema. She has some edema of her eyelids. PHYSICAL EXAMINATION: GENERAL: Morbidly obese elderly lady, lying in bed, in moderate respiratory distress. VITAL SIGNS: Blood pressure 92/54, heart rate 111, respiratory rate 22, temperature 97.4. HEENT: Normocephalic, atraumatic, positive pallor, no icterus. NECK: Supple, no JVD. LUNGS: Bilateral equal air entry, bilateral equal expansion anteriorly. No rales appreciated. CARDIAC: S1 and S2, regular rate and rhythm, positive murmur, no rub. ABDOMEN: Obese, distended, soft, nontender, bowel sounds present. EXTREMITIES: 2+ pitting edema of the lower extremities. INTAKE AND OUTPUT: Not charted. LABORATORY DATA: WBC 31.6, hemoglobin 10.7, hematocrit 34, platelets 140. Sodium 138, potassium 5.5, chloride 109, CO2 of 15, anion gap is 14, BUN 132, creatinine 2.6, glucose 114, calcium 8.1, total bili 2.2, AST 188, ALT 43, albumin 2.6, globulin 2.9. Blood cultures: No growth. Urine culture: No growth. CURRENT MEDICATIONS: Ativan 1 mg p.o. t.i.d. p.r.n., Cogentin 0.5 at bedtime, Cogentin 0.5 b.i.d., Colace 200, heparin 5000 subcu every 12, cefepime 1 g daily, MiraLax 17 g, Protonix 20, Xopenex, Zyprexa 2.5 every 12, Kayexalate 30 g given this morning. ASSESSMENT: 1. Acute kidney injury, hepatorenal syndrome suspect. The patient received more than 8 L of IV fluid resuscitation with no improvement. 2. Severe anemia, status post total of 2 units of blood transfusion. 3. Hyperkalemia secondary to acute kidney injury. 4. Leukocytosis with no clear etiology except for steroid use? 5. Respiratory distress, tachypnoea 6. Morbid obesity. 7. Bipolar disorder. 8. Metastatic breast cancer stage IV with bone and lung metastasis and liver metastasis. PLAN: 1. ABG now. 2. Lasix 60 mg IV push x1 dose. 3. Discussed possibility of renal replacement therapy with sons and the patient at bedside. They will decide and let me know. 4. Agree with ICU management. 5. Worsening renal function, monitor UO and daily labs 6. Con't empiric Abx, dose for cr cl <10 D/w nursing staff, d/w patient and sons at bedside. More than 35 min spent in care coordination for this critically ill patient. Loreta Giron MD MTDD
[2018-06-11] MEDS: NOREPINEPHRINE BIT/0.9 % NACL 4 MG/250 ML BAG IV PRN (16:51)
--- NOTE | 2018-06-11 18:02 | PN ---
DATE: 06/11/2018 PULMONARY MEDICAL CARE PROGRESS NOTE REFERRING PHYSICIAN: Jessica Flores MD. SUBJECTIVE: She just transferred to Intensive Care Unit because of tachypnea, on nasal cannula oxygen, oxygenating very well, but gets short of breath with minimal exertion. Family, son and daughter are at bedside. She has some tremors, questionable shiver. No nausea. No vomiting. No diarrhea, leg pain, leg swelling. Has a very poor appetite. She claims she gets short of breath. OBJECTIVE: GENERAL: [id number] distress. VITAL SIGNS: Temp is 97.4 orally, heart rate is 107, respiratory rate is 20-30, blood pressure 136/62, pulse ox 98% on 2 L nasal cannula. HEENT: Moist mucous membrane. Crowded airway. Mallampati score is 4. NECK: Supple. No JVD. LUNGS: Have a scattered rhonchi. Overall fair airflow. HEART: S1 and S2. Tachycardic. ABDOMEN: Soft, nontender, no organomegaly. EXTREMITIES: Does have some edema. NEUROLOGICAL: Awake and alert. Follows simple command. MEDICATIONS: She is on lorazepam 1 mg p.o. three times a day p.r.n., Cepacol lozenges every 2 hours p.r.n., Cogentin 0.5 mg at bedtime, also Cogentin 0.5 mg twice a day, Colace 200 mg daily, heparin 5000 units subcu every 12 hours, cefepime 1 g IV daily, lidocaine patch at affected area, also on Levophed, Protonix 20 mg daily, budesonide inhaled twice a day, Tylenol p.r.n., Ultracet 37.5/325 one tab every 6 hours p.r.n., Xopenex inhaled every 6 hours, Zyprexa 2.5 mg twice a day. LABORATORY DATA: Shows hemoglobin 10.7, hematocrit 37.8, WBC 31,000, platelet is 140. Has ABG done, which showed pH 7.39, pCO2 of 20, O2 of 87. This is on nasal cannula. Sodium 138, potassium 5.5, chloride 109, bicarbonate is 15, BUN 132, creatinine 2.6, glucose is 112, calcium is 8.1, total bili 2.2, AST 188, ALT 43, alk phos , albumin is 2.6. Microbiology: Blood culture, urine cultures have been negative. Had a chest x-ray done, official report is still pending. Chest x-ray shows pleural effusion, more like a congestion. IMPRESSION AND PLAN: Metastatic breast cancer to the lungs and liver with pleural effusion, renal failure, history of bipolar disorder, hypertension, chronic lung disease, may have sleep apnea syndrome. I had a long discussion with the patient's son and daughter at bedside. Option of aggressive care discussed including DNR and DNI. The patient also participated in discussion. Family will have a continued discussion about aggressive care for now. Continue supplemental oxygen. Case also discussed with manager construction, Dr. Long Brennan. There is also discussion about dialysis. For now, continue antibiotics. Keep head at 45 degrees. Supplemental oxygen, gastric prophylaxis, deep venous thrombosis prophylaxis. Also hypertensive and pressors are being added. Follow up ABG, chest x-ray, CBC, CMP in the morning. Overall poor prognosis. Critical care time is more than 35 minutes. Thank you and we will follow with you. Dee German MD
--- NOTE | 2018-06-11 18:10 | RAD ---
Date of service: 06/11/2018 HISTORY: sob COMPARISON: Portable chest 06/08/2018 FINDINGS: LUNGS: The other hemidiaphragm is reiterated with no definite airspace disease appreciable. PLEURA: No significant pleural effusion identified, no pneumothorax apparent. CARDIOVASCULAR: Cardiomegaly and limited pulmonary vascular congestion identified. OSSEOUS STRUCTURES: No significant abnormalities. VISUALIZED UPPER ABDOMEN: Normal. OTHER FINDINGS: None. IMPRESSION: Limited pulmonary vascular congestion. No acute infiltrate bilaterally. The liver hemidiaphragm unchanged.
--- NOTE | 2018-06-11 18:23 | CON ---
DATE: 06/11/2018 DIRECTOR OF HEALTH EDUCATION NOTE LOCATION: At [facility] ([facility]3]. HISTORY OF PRESENT ILLNESS: Ms. Leydi Strong is a patient that initially presented with shortness of breath and associated acute renal failure. The patient on the floor today was evaluated for possible readmission to the Intensive Care Unit. At that time, in evaluating the patient, she was tachypneic and noted to be hypotensive. The patient is awake and alert and family members are next to the patient. She does have some chills and basically at this time seems to be mildly febrile. The patient has no complaints of significant pain. No nauseousness or vomiting. No diarrhea. Because of the hypotension, acute renal failure and sepsis, possible septic shock with severe metabolic acidosis, the patient was transferred to the Intensive Care Unit. At this time, we are monitoring her closely. The patient does have ID as well as Pulmonary consults on board as well as Oncology. Since being transferred to the Intensive Care Unit with hydration, her BP has stabilized and O2 saturations are good on room air. PHYSICAL EXAMINATION: VITAL SIGNS: Physical exam note that her temperature is 97.4, her pulse is 107, respirations are 22 and her BP is 107/84. HEENT: The patient's head is atraumatic, normocephalic. Eyes are reactive to light. Ears, nose and throat seemed to be within normal limits. NECK: Supple. No JVD. No thyroid enlargement. No lymph nodes. HEART: Has a regular rate and rhythm. Normal S1, S2, but mildly tachycardic. LUNGS: Her lungs reveal expiratory wheezing with occasional rhonchi at the bases. ABDOMEN: Soft, but obese. Decreased bowel sounds. GENITALIA AND RECTAL: Deferred. MUSCULOSKELETAL: No joint deformities. EXTREMITIES: Reveal 3-4+ edema in the lower extremities and approximately 1-2 plus edema in the upper extremities. NEUROLOGICAL: She seemed to be grossly intact. LABORATORY DATA: As far as her laboratories are concerned, her white count is 31.6, hemoglobin is 10.7 and hematocrit is 33.8 with platelets of 140,000. The patient's arterial blood gas reveals a pH of 7.39, pCO2 of 20, pO2 of 87. This is on an FIO2 of 28%. Sodium is 138, potassium 5.5, chloride 109, CO2 of 15 with anion gap is 19, BUN is 132 and her creatinine is 2.6, glucose is 112. IMPRESSION: As far as my impression, this patient has sepsis with hypotension, possible septic shock. Note that as of now, all blood cultures are negative. The patient has acute renal failure on top of chronic renal failure. There is anemia, metabolic acidosis and anasarca with morbid obesity. She has a history of chronic obstructive pulmonary disease, hypertension and breast carcinoma with mets to the liver as well as the lung. PLAN: As far as our plan, we will transfer her to the Intensive Care Unit, monitor closely and give the patient Lasix 20 mg and watch her blood pressure closely. We will continue her Ativan as well as her Cogentin. Note that the patient does have a history of bipolar disease and we will continue the heparin subcu. She will continue with her cefepime as well as the vanco and is getting Xopenex and we will start Pulmicort. The patient is getting Protonix. We will give her Tylenol for her fever and we will monitor closely and treat aggressively along with the other consultants and the primary care doctor. Long Brennan MD
[2018-06-11] MEDS: Budesonide 0.5 mg/2 ml Inhal Susp UD IH SCH (20:29)
[2018-06-11] MEDS ORDERED: Levalbuterol 1.25 MG/3 ML Inhal Soln UD IH STA (23:28)
[2018-06-12 01:58] LABS: ARTERIAL BLOOD GAS HCO3 12.4 mmol/L (21-28); ARTERIAL BLOOD GAS O2 SAT 99.6 % (95-98); ARTERIAL BLOOD GAS PCO2 21 mm/Hg (35-45); ARTERIAL BLOOD GAS PH 7.38 (7.35-7.45)
[2018-06-12] MEDS: NOREPINEPHRINE BIT/0.9 % NACL 4 MG/250 ML BAG IV PRN ×3 (04:27→23:49)
[2018-06-12] MEDS: Levalbuterol 1.25 MG/3 ML Inhal Soln UD IH SCH ×4 (05:13→19:45)
[2018-06-12] MEDS: Pantoprazole 20 mg EC Tab PO SCH (06:00)
[2018-06-12 07:33] LABS: BASO # 0.02 K/mm3 (0.0-2.0); BASO % 0.1 % (0.0-3.0); EOS # 0.4 (0.0-0.7); EOS % 1.2 % (1.5-5.0); GRAN # 28.65 (1.4-6.5); GRAN % 90.6 % (50.0-68.0); HEMOGLOBIN 10.3 g/dL (12.0-16.0); LYMPH # 1.2 (1.2-3.4); LYMPH % 3.6 % (22.0-35.0); MEAN CELL VOLUME 77.8 fl (80.0-105.0); MEAN CORPUSCULAR HEMOGLOBIN 24.6 pg (25.0-35.0); MEAN CORPUSCULAR HGB CONC 31.6 g/dl (31.0-37.0); MEAN PLATELET VOLUME 10.4 fl (7.0-11.0); MONO # 1.4 (0.1-0.6); MONO % 4.5 % (1.0-6.0); PLATELET COUNT 141 10^3/uL (120.0-450.0); RBC 4.19 10^6/uL (3.5-6.1); RED CELL DISTRIBUTION WIDTH 19.1 % (11.5-14.5)
[2018-06-12 07:39] LABS: WHITE BLOOD COUNT 31.6 10^3/ul (4.5-11.0)
[2018-06-12 07:49] LABS: CALCIUM 8.2 mg/dL (8.4-10.5)
--- NOTE | 2018-06-12 08:04 | CP.CCUPN ---
<Mariel Cid - Last Filed: 06/12/18 12:24> CCU Subjective - Physician Review Subjective (Free Text): Patient seen and examined this AM at bedside. NAEO per nursing. Patient is tachypneic at rest on 3L NC. She denies headache, chest pain, abdominal pain, and calf/extremity pain. 06/12/18 08:00 CCU Objective - Vital Signs / Intake & Output Intake and Output (Last 8hrs): Intake & Output 06/11/18 06/12/18 06/12/18 22:59 06:59 14:59 Intake Total 160 250 Output Total 100 Balance 60 250 Intake: IV 80 250 Right Subclavian 80 Oral 80 Output: Urine 100 2-way Urethral 100 Other: # Bowel Movements 2 - Physical Exam Head: Positive for: Atraumatic Pupils: Positive for: PERRL Extroacular Muscles: Positive for: EOMI Conjunctiva: Positive for: Normal Mouth: Positive for: Moist Mucous Membranes Neck: Positive for: Normal Range of Motion Respiratory/Chest: Positive for: Good Air Exchange, Wheezes (bilateral expiratory wheeze), Tachypneic. Negative for: Clear to Auscultation, Respiratory Distress, Accessory Muscle Use, Tender to Palpation Cardiovascular: Positive for: Normal S1, S2, Tachycardic Abdomen: Positive for: Normal Bowel Sounds. Negative for: Tenderness, Rebound, Guarding Upper Extremity: Positive for: Edema, Normal ROM Lower Extremity: Positive for: Normal Inspection, Edema. Negative for: CALF TENDERNESS, Tenderness, Deformity Neurological: Positive for: GCS=15, CN II-XII Intact, Speech Normal Skin: Positive for: Warm, Dry, Normal Color Psychiatric: Positive for: Alert, Oriented x 3 - Medications Active Medications: Active Medications Generic Name Dose Route Start Last Admin Trade Name Freq PRN Reason Stop Dose Admin Acetaminophen 650 mg 06/11/18 15:34 06/12/18 02:18 Tylenol 325mg Tab PO 650 mg Q6H PRN Administration Fever >100.4 F Benzocaine/Menthol 1 rosey 06/10/18 18:45 Cepacol Sore Throat MT Q2H PRN Sore Throat Benztropine Mesylate 0.5 mg 06/09/18 22:00 06/11/18 22:09 Cogentin PO 0.5 mg HS TAZ Administration Benztropine Mesylate 0.5 mg 06/10/18 10:00 06/11/18 17:03 Cogentin PO 0.5 mg BID TAZ Administration Budesonide 0.5 mg 06/11/18 20:00 06/11/18 20:29 Pulmicort Respules IH 0.5 mg [id number] TAZ Administration Docusate Sodium 200 mg 06/10/18 12:00 06/11/18 09:11 Colace PO 200 mg DAILY TAZ Administration Heparin Sodium (Porcine) 5,000 units 06/08/18 22:00 06/11/18 22:10 Heparin SC 5,000 units Q12 TAZ Administration Protocol Cefepime HCl 1 gm in 100 mls @ 100 mls/hr 06/08/18 10:00 06/11/18 13:02 Maxipime 1gm IVPB 100 mls/hr DAILY TAZ Administration Protocol NOREPINEPHRINE BIT/0.9 % NACL 4 mg in 250 mls @ 15 mls/hr 06/11/18 16:29 07/20 04:27 Levophed 4 Mg/ 250 Ml Ns Premixed IV 4 mcg/min .[id number] PRN 15 mls/hr TITRATE PER MD ORDER Administration Protocol 4 MCG/MIN Levalbuterol HCl 1.25 mg 06/07/18 02:00 06/12/18 05:13 Xopenex IH Not Given [id number] [facility] Lidocaine HCl 15 ml 06/10/18 18:43 06/10/18 18:51 Lidocaine 2% Viscous PO 15 ml Q3H PRN Administration Sore Throat Lorazepam 1 mg 06/09/18 18:15 06/11/18 23:48 Ativan PO 1 mg TID PRN Administration anxiety/agitation Protocol Olanzapine 2.5 mg 06/10/18 22:00 06/11/18 22:09 Zyprexa PO 2.5 mg Q12 TAZ Administration Protocol Pantoprazole Sodium 20 mg 06/08/18 09:35 06/11/18 06:57 Protonix Ec Tab PO 20 mg 0600 TAZ Administration Polyethylene Glycol 17 gm 06/10/18 12:00 06/11/18 09:10 Miralax PO 17 gm DAILY TAZ Administration Tramadol/Acetaminophen 1 tab 06/08/18 12:01 Ultracet 37.5/325 Mg PO Q6H PRN Pain, moderate (4-7) - Patient Studies Lab Studies: Microbiology Studies 06/06/18 18:15 Blood Culture - Final Blood NO GROWTH AFTER 5 DAYS Gram Stain - Final TEST NOT PERFORMED 06/06/18 18:00 Blood Culture - Final Blood NO GROWTH AFTER 5 DAYS Gram Stain - Final TEST NOT PERFORMED Lab Studies 06/12/18 06/12/18 06/12/18 Range/Units 07:15 07:15 01:50 WBC 31.6 H* (4.5-11.0) 10^3/ul RBC 4.19 (3.5-6.1) 10^6/uL Hgb 10.3 L (12.0-16.0) g/dL Hct 32.6 L (36.0-48.0) % MCV 77.8 L (80.0-105.0) fl MCH 24.6 L (25.0-35.0) pg MCHC 31.6 (31.0-37.0) g/dl RDW 19.1 H (11.5-14.5) % Plt Count 141 (120.0-450.0) 10^3/uL MPV 10.4 (7.0-11.0) fl Gran % 90.6 H (50.0-68.0) % Lymph % (Auto) 3.6 L (22.0-35.0) % [place] % (Auto) 4.5 (1.0-6.0) % Eos % (Auto) 1.2 L (1.5-5.0) % Baso % (Auto) 0.1 (0.0-3.0) % Gran # 28.65 H (1.4-6.5) Lymph # (Auto) 1.2 (1.2-3.4) [place] # (Auto) 1.4 H (0.1-0.6) Eos # (Auto) 0.4 (0.0-0.7) Baso # (Auto) 0.02 (0.0-2.0) K/mm3 pCO2 21 L (35-45) mm/Hg pO2 101.0 H (80-100) mm/Hg HCO3 12.4 L (21-28) mmol/L ABG pH 7.38 (7.35-7.45) ABG Total CO2 13.0 L (22-28) mmol.L ABG O2 Saturation 99.6 H (95-98) % ABG O2 Content (15-23) ML/dl ABG Base Excess -10.5 L (-2.0-3.0) mmol/L ABG Hemoglobin (11.7-17.4) g/dL ABG Carboxyhemoglobin (0.5-1.5) % POC ABG HHb (Measured) (0-5) % ABG Methemoglobin (0.0-3.0) % ABG O2 Capacity (16-24) mL/dl ABG Potassium 4.7 (3.6-5.2) mmol/L Hgb O2 Saturation (95.0-98.0) % Glucose 142 H (65-105) mg/dl Lactate 2.6 H (0.7-2.1) mmol/L FiO2 32.0 % Sodium 138 138.0 (132-148) mmol/L Potassium 5.1 H (3.6-5.0) mmol/L Chloride 110 H 112.0 H (98-107) mmol/L Carbon Dioxide 15 L (21-33) mmol/L Anion Gap 19 (10-20) BUN (7-21) mg/dL Creatinine 3.0 H (0.7-1.2) mg/dl Est GFR ( Amer) 19 Est GFR (Non-Af Amer) 16 POC Glucose (mg/dL) (65-110) mg/dL Random Glucose 117 H (70-110) mg/dL Calcium 8.2 L (8.4-10.5) mg/dL Phosphorus 7.6 H (2.5-4.5) mg/dL Magnesium 2.9 H (1.7-2.2) mg/dL Total Bilirubin (0.2-1.3) mg/dL AST (14-36) U/L ALT (7-56) U/L Alkaline Phosphatase (38-126) U/L Total Protein (5.8-8.3) g/dL Albumin (3.0-4.8) g/dL Globulin gm/dL Albumin/Globulin Ratio (1.1-1.8) Arterial Blood Potassium 4.7 (3.6-5.2) mmol/L 06/11/18 06/11/18 06/11/18 Range/Units 14:31 13:13 10:20 WBC (4.5-11.0) 10^3/ul RBC (3.5-6.1) 10^6/uL Hgb (12.0-16.0) g/dL Hct (36.0-48.0) % MCV (80.0-105.0) fl MCH (25.0-35.0) pg MCHC (31.0-37.0) g/dl RDW (11.5-14.5) % Plt Count (120.0-450.0) 10^3/uL MPV (7.0-11.0) fl Gran % (50.0-68.0) % Lymph % (Auto) (22.0-35.0) % [place] % (Auto) (1.0-6.0) % Eos % (Auto) (1.5-5.0) % Baso % (Auto) (0.0-3.0) % Gran # (1.4-6.5) Lymph # (Auto) (1.2-3.4) [place] # (Auto) (0.1-0.6) Eos # (Auto) (0.0-0.7) Baso # (Auto) (0.0-2.0) K/mm3 pCO2 20 L (35-45) mm/Hg pO2 87.0 (80-100) mm/Hg HCO3 12.1 L (21-28) mmol/L ABG pH 7.39 (7.35-7.45) ABG Total CO2 12.7 L (22-28) mmol.L ABG O2 Saturation 98.8 H (95-98) % ABG O2 Content 15.1 (15-23) ML/dl ABG Base Excess -10.9 L (-2.0-3.0) mmol/L ABG Hemoglobin 11.2 L (11.7-17.4) g/dL ABG Carboxyhemoglobin 2.2 H (0.5-1.5) % POC ABG HHb (Measured) 1.2 (0-5) % ABG Methemoglobin 1.4 (0.0-3.0) % ABG O2 Capacity 15.3 L (16-24) mL/dl ABG Potassium (3.6-5.2) mmol/L Hgb O2 Saturation 95.3 (95.0-98.0) % Glucose (65-105) mg/dl Lactate (0.7-2.1) mmol/L FiO2 28.0 % Sodium (132-148) mmol/L Potassium 5.5 H (3.6-5.0) mmol/L Chloride (98-107) mmol/L Carbon Dioxide (21-33) mmol/L Anion Gap (10-20) BUN (7-21) mg/dL Creatinine (0.7-1.2) mg/dl Est GFR ( Amer) Est GFR (Non-Af Amer) POC Glucose (mg/dL) 112 H (65-110) mg/dL Random Glucose (70-110) mg/dL Calcium (8.4-10.5) mg/dL Phosphorus (2.5-4.5) mg/dL Magnesium (1.7-2.2) mg/dL Total Bilirubin (0.2-1.3) mg/dL AST (14-36) U/L ALT (7-56) U/L Alkaline Phosphatase (38-126) U/L Total Protein (5.8-8.3) g/dL Albumin (3.0-4.8) g/dL Globulin gm/dL Albumin/Globulin Ratio (1.1-1.8) Arterial Blood Potassium (3.6-5.2) mmol/L 06/11/18 06/11/18 Range/Units 07:50 07:50 WBC 31.6 H* (4.5-11.0) 10^3/ul RBC 4.37 (3.5-6.1) 10^6/uL Hgb 10.7 L D (12.0-16.0) g/dL Hct 33.8 L (36.0-48.0) % MCV 77.3 L (80.0-105.0) fl MCH 24.5 L (25.0-35.0) pg MCHC 31.7 (31.0-37.0) g/dl RDW 18.5 H (11.5-14.5) % Plt Count 140 (120.0-450.0) 10^3/uL MPV 10.3 (7.0-11.0) fl Gran % 91.4 H (50.0-68.0) % Lymph % (Auto) 5.4 L (22.0-35.0) % [place] % (Auto) 1.6 (1.0-6.0) % Eos % (Auto) 1.5 (1.5-5.0) % Baso % (Auto) 0.1 (0.0-3.0) % Gran # 28.89 H (1.4-6.5) Lymph # (Auto) 1.7 (1.2-3.4) [place] # (Auto) 0.5 (0.1-0.6) Eos # (Auto) 0.5 (0.0-0.7) Baso # (Auto) 0.03 (0.0-2.0) K/mm3 pCO2 (35-45) mm/Hg pO2 (80-100) mm/Hg HCO3 (21-28) mmol/L ABG pH (7.35-7.45) ABG Total CO2 (22-28) mmol.L ABG O2 Saturation (95-98) % ABG O2 Content (15-23) ML/dl ABG Base Excess (-2.0-3.0) mmol/L ABG Hemoglobin (11.7-17.4) g/dL ABG Carboxyhemoglobin (0.5-1.5) % POC ABG HHb (Measured) (0-5) % ABG Methemoglobin (0.0-3.0) % ABG O2 Capacity (16-24) mL/dl ABG Potassium (3.6-5.2) mmol/L Hgb O2 Saturation (95.0-98.0) % Glucose (65-105) mg/dl Lactate (0.7-2.1) mmol/L FiO2 % Sodium 138 (132-148) mmol/L Potassium 5.5 H (3.6-5.0) mmol/L Chloride 109 H (98-107) mmol/L Carbon Dioxide 15 L (21-33) mmol/L Anion Gap 19 (10-20) BUN 132 H* (7-21) mg/dL Creatinine 2.6 H (0.7-1.2) mg/dl Est GFR ( Amer) 22 Est GFR (Non-Af Amer) 19 POC Glucose (mg/dL) (65-110) mg/dL Random Glucose 114 H (70-110) mg/dL Calcium 8.1 L (8.4-10.5) mg/dL Phosphorus (2.5-4.5) mg/dL Magnesium (1.7-2.2) mg/dL Total Bilirubin 2.2 H (0.2-1.3) mg/dL AST 188 H (14-36) U/L ALT 43 (7-56) U/L Alkaline Phosphatase 728 H D (38-126) U/L Total Protein 5.5 L (5.8-8.3) g/dL Albumin 2.6 L (3.0-4.8) g/dL Globulin 2.9 gm/dL Albumin/Globulin Ratio 0.9 L (1.1-1.8) Arterial Blood Potassium (3.6-5.2) mmol/L Laboratory Results - last 24 hr 06/11/18 06/11/18 06/11/18 07:50 07:50 10:20 WBC 31.6 H* RBC 4.37 Hgb 10.7 L D Hct 33.8 L MCV 77.3 L MCH 24.5 L MCHC 31.7 RDW 18.5 H Plt Count 140 MPV 10.3 Gran % 91.4 H Lymph % (Auto) 5.4 L [place] % (Auto) 1.6 Eos % (Auto) 1.5 Baso % (Auto) 0.1 Gran # 28.89 H Lymph # (Auto) 1.7 [place] # (Auto) 0.5 Eos # (Auto) 0.5 Baso # (Auto) 0.03 pCO2 pO2 HCO3 ABG pH ABG Total CO2 ABG O2 Saturation ABG O2 Content ABG Base Excess ABG Hemoglobin ABG Carboxyhemoglobin POC ABG HHb (Measured) ABG Methemoglobin ABG O2 Capacity ABG Potassium Hgb O2 Saturation Glucose Lactate FiO2 Sodium 138 Potassium 5.5 H 5.5 H Chloride 109 H Carbon Dioxide 15 L Anion Gap 19 BUN 132 H* Creatinine 2.6 H Est GFR ( Amer) 22 Est GFR (Non-Af Amer) 19 POC Glucose (mg/dL) Random Glucose 114 H Calcium 8.1 L Phosphorus Magnesium Total Bilirubin 2.2 H AST 188 H ALT 43 Alkaline Phosphatase 728 H D Total Protein 5.5 L Albumin 2.6 L Globulin 2.9 Albumin/Globulin Ratio 0.9 L Arterial Blood Potassium 06/11/18 06/11/18 06/12/18 13:13 14:31 01:50 WBC RBC Hgb Hct MCV MCH MCHC RDW Plt Count MPV Gran % Lymph % (Auto) [place] % (Auto) Eos % (Auto) Baso % (Auto) Gran # Lymph # (Auto) [place] # (Auto) Eos # (Auto) Baso # (Auto) pCO2 20 L 21 L pO2 87.0 101.0 H HCO3 12.1 L 12.4 L ABG pH 7.39 7.38 ABG Total CO2 12.7 L 13.0 L ABG O2 Saturation 98.8 H 99.6 H ABG O2 Content 15.1 ABG Base Excess -10.9 L -10.5 L ABG Hemoglobin 11.2 L ABG Carboxyhemoglobin 2.2 H POC ABG HHb (Measured) 1.2 ABG Methemoglobin 1.4 ABG O2 Capacity 15.3 L ABG Potassium 4.7 Hgb O2 Saturation 95.3 Glucose 142 H Lactate 2.6 H FiO2 28.0 32.0 Sodium 138.0 Potassium Chloride 112.0 H Carbon Dioxide Anion Gap BUN Creatinine Est GFR ( Amer) Est GFR (Non-Af Amer) POC Glucose (mg/dL) 112 H Random Glucose Calcium Phosphorus Magnesium Total Bilirubin AST ALT Alkaline Phosphatase Total Protein Albumin Globulin Albumin/Globulin Ratio Arterial Blood Potassium 4.7 06/12/18 06/12/18 07:15 07:15 WBC 31.6 H* RBC 4.19 Hgb 10.3 L Hct 32.6 L MCV 77.8 L MCH 24.6 L MCHC 31.6 RDW 19.1 H Plt Count 141 MPV 10.4 Gran % 90.6 H Lymph % (Auto) 3.6 L [place] % (Auto) 4.5 Eos % (Auto) 1.2 L Baso % (Auto) 0.1 Gran # 28.65 H Lymph # (Auto) 1.2 [place] # (Auto) 1.4 H Eos # (Auto) 0.4 Baso # (Auto) 0.02 pCO2 pO2 HCO3 ABG pH ABG Total CO2 ABG O2 Saturation ABG O2 Content ABG Base Excess ABG Hemoglobin ABG Carboxyhemoglobin POC ABG HHb (Measured) ABG Methemoglobin ABG O2 Capacity ABG Potassium Hgb O2 Saturation Glucose Lactate FiO2 Sodium 138 Potassium 5.1 H Chloride 110 H Carbon Dioxide 15 L Anion Gap 19 BUN Creatinine 3.0 H Est GFR ( Amer) 19 Est GFR (Non-Af Amer) 16 POC Glucose (mg/dL) Random Glucose 117 H Calcium 8.2 L Phosphorus 7.6 H Magnesium 2.9 H Total Bilirubin AST ALT Alkaline Phosphatase Total Protein Albumin Globulin Albumin/Globulin Ratio Arterial Blood Potassium Review of Systems - Review of Systems All systems: reviewed and no additional remarkable complaints except Review of Systems: as per HPI Critical Care Progress Note - Prophylaxis GI Prophylaxis GI: PPI - Prophylaxis DVT Prophylaxis DVT: Heparin SQ, SCDs - Nutrition Nutrition: Nutrition Category Date Time Status Heart Healthy Diet [DIET] Diets 06/07/18 Lunch Active Assessment/Plan - Assessment and Plan (Free Text) Assessment: 62 year old female with PMH COPD (not on home O2), breast cancer with mets s/p chemo/radiation (08/2017) and left lumpectomy, CKD (baseline Cr 2.6), HTN, bipolar disorder, depression, HLD, gout, presents to ICU for leukocytosis, lactic acidosis, MARILYN on CKD, dehydration. Patient was on home prednisone 20 mg PO BID for past 7 days. Leukocytosis likely steroid induced, lactic acidosis likely type B1 (malignancy induced). Patient returned to ICU ocer weekend with worsening SOB and hypotension. Now requiring 4 mcg of levophed for pressure support. Family has agreed to dialysis, dialysis catheter planned with Dr. Dave Pino. Plan: Neuro: AAOx4 Less drowsy, more alert Cardio: - BP labile, intermittently hypo and hypertensive - requiring levephedrine 4mcg for BP control - Echo 05/27/18 shows normal EF. normal valve function, mild TR. - repeat ECHO and get LE duplex today with concern for PE/DVT - Hx of HTN. hold home irbesartan and bystolic in setting of low BP. - Monitor Pulm: -hx of COPD (not on home O2). as per son, patient uses ventolin inhaler at home. Never a smoker. -Verified with [facility], patient was recently sent home on prednisone 20 mg PO BID (from recent [facility] [place] on 06/01/18 - patient was on IV steroids in hospital). -Xopenex prn, Prednisone 20 mg PO daily, will taper. -On 3L NC, saturating well, wean as tolerated - CT chest 06/06 shows moderate size right sided pleural effusion. Nodularity in both lung, indeterminate for malignancy, largest nodule is 1.3 cm (similar findings on chest CT on 05/2018). Mild diffuse subcutaneous edema in the lower abdomen and pelvis. Liver is heterogenous in appearance and appears to contain multiple mets. GI: - HHD - Protonix. Renal: - BUN/Cr 137/3.0 (baseline Cr 2.4) - Replace lytes, maintain euvolemia. - plan for dialysis as soon as catheter is placed by Dr. Dave Pino - Monitor ID: afebrile, + leukocytosis (likely steroid induced) WBC 31.6 from 31.6 yesterday CXR 06/11 no pleaural effusion, stable cardiomegaly. CT chest 06/06 shows moderate size right sided pleural effusion. Nodularity in both lung, indeterminate for malignancy, largest nodule is 1.3 cm (similar findings on chest CT on 05/2018). UA neg nitrate, LE. many bacteria, 1-3 wbcs. Blood and urine cultures negative to date Port-a-cath placed 05/29/[address] Pino, flushing well. abx changed to Merrem and doxycycline per ID ID on board. Heme: - Hgb 10.3, platelets normal - repeat H&H this afternoon - continue to monitor DVT ppx: scds GI ppx: protonix Case seen and discussed with Dr. Khurram Cid, PGY1 - Date & Time Date: 06/12/18 <Tim Paulson - Last Filed: 06/12/18 15:13> CCU Objective - Vital Signs / Intake & Output Vital Signs (Last 4 hours): Vital Signs Pulse 06/12/18 11:55 115 H Intake and Output (Last 8hrs): Intake & Output 06/12/18 06/12/18 06/12/18 06:59 14:59 22:59 Intake Total 600 Output Total 200 Balance 400 Intake: IV 400 Right Subclavian 150 Oral 200 Output: Urine 200 2-way Urethral 200 Other: # Bowel Movements 2 - Medications Active Medications: Active Medications Generic Name Dose Route Start Last Admin Trade Name Freq PRN Reason Stop Dose Admin Acetaminophen 650 mg 06/11/18 15:34 06/12/18 02:18 Tylenol 325mg Tab PO 650 mg Q6H PRN Administration Fever >100.4 F Benzocaine/Menthol 1 rosey 06/10/18 18:45 Cepacol Sore Throat MT Q2H PRN Sore Throat Benztropine Mesylate 0.5 mg 06/09/18 22:00 06/11/18 22:09 Cogentin PO 0.5 mg HS TAZ Administration Benztropine Mesylate 0.5 mg 06/10/18 10:00 06/12/18 13:09 Cogentin PO Not Given BID TAZ Budesonide 0.5 mg 06/11/18 20:00 06/12/18 08:29 Pulmicort Respules IH 0.5 mg [id number] TAZ Administration Docusate Sodium 200 mg 06/10/18 12:00 06/12/18 10:15 Colace PO 200 mg DAILY TAZ Administration Heparin Sodium (Porcine) 5,000 units 06/08/18 22:00 06/12/18 10:17 Heparin SC 5,000 units Q12 TAZ Administration Protocol NOREPINEPHRINE BIT/0.9 % NACL 4 mg in 250 mls @ 15 mls/hr 06/11/18 16:29 07/20 04:27 Levophed 4 Mg/ 250 Ml Ns Premixed IV 4 mcg/min .[id number] PRN 15 mls/hr TITRATE PER MD ORDER Administration Protocol 4 MCG/MIN Meropenem 500 mg/ Sodium 50 mls @ 100 mls/hr 06/12/18 22:00 Chloride IVPB 06/17/18 22:01 Q12 TAZ Protocol Doxycycline Hyclate 100 mg/ 100 mls @ 100 mls/hr 06/12/18 22:00 Sodium Chloride IVPB Q12 TAZ Protocol Levalbuterol HCl 1.25 mg 06/07/18 02:00 06/12/18 14:19 Xopenex IH 1.25 mg [id number] TAZ Administration Lidocaine HCl 15 ml 06/10/18 18:43 06/10/18 18:51 Lidocaine 2% Viscous PO 15 ml Q3H PRN Administration Sore Throat Lorazepam 1 mg 06/09/18 18:15 06/11/18 23:48 Ativan PO 1 mg TID PRN Administration anxiety/agitation Protocol Olanzapine 2.5 mg 06/10/18 22:00 06/12/18 13:10 Zyprexa PO Not Given Q12 TAZ Protocol Pantoprazole Sodium 20 mg 06/08/18 09:35 06/12/18 06:00 Protonix Ec Tab PO 20 mg 0600 TAZ Administration Polyethylene Glycol 17 gm 06/10/18 12:00 06/12/18 10:17 Miralax PO 17 gm DAILY TAZ Administration Tramadol/Acetaminophen 1 tab 06/08/18 12:01 Ultracet 37.5/325 Mg PO Q6H PRN Pain, moderate (4-7) - Patient Studies Lab Studies: Microbiology Studies 06/06/18 18:15 Blood Culture - Final Blood NO GROWTH AFTER 5 DAYS Gram Stain - Final TEST NOT PERFORMED 06/06/18 18:00 Blood Culture - Final Blood NO GROWTH AFTER 5 DAYS Gram Stain - Final TEST NOT PERFORMED Lab Studies 06/12/18 06/12/18 06/12/18 Range/Units 13:30 13:30 09:03 WBC (4.5-11.0) 10^3/ul RBC (3.5-6.1) 10^6/uL Hgb 10.7 L (12.0-16.0) g/dL Hct 33.7 L (36.0-48.0) % MCV (80.0-105.0) fl MCH (25.0-35.0) pg MCHC (31.0-37.0) g/dl RDW (11.5-14.5) % Plt Count (120.0-450.0) 10^3/uL MPV (7.0-11.0) fl Gran % (50.0-68.0) % Lymph % (Auto) (22.0-35.0) % [place] % (Auto) (1.0-6.0) % Eos % (Auto) (1.5-5.0) % Baso % (Auto) (0.0-3.0) % Gran # (1.4-6.5) Lymph # (Auto) (1.2-3.4) [place] # (Auto) (0.1-0.6) Eos # (Auto) (0.0-0.7) Baso # (Auto) (0.0-2.0) K/mm3 Neutrophils % (Manual) (50.0-70.0) % Band Neutrophils % (0-2) % Lymphocytes % (Manual) (22.0-35.0) % Monocytes % (Manual) (1.0-6.0) % Nucleated RBC % % pCO2 (35-45) mm/Hg pO2 57 H 42 (80-100) mm/Hg HCO3 (21-28) mmol/L ABG pH (7.35-7.45) ABG Total CO2 (22-28) mmol.L ABG O2 Saturation (95-98) % ABG Base Excess (-2.0-3.0) mmol/L ABG Potassium (3.6-5.2) mmol/L VBG pH 7.31 L 7.34 (7.32-7.43) VBG pCO2 26.0 L 27.0 L (40-60) VBG HCO3 13.1 L 14.6 L (21-28) mmol/l VBG Total CO2 13.9 L 15.4 L (22-28) mmol.L VBG O2 Sat (Calc) 90.8 H 79.8 H (40-65) % VBG Base Excess -11.5 L -9.6 L (0.0-2.0) mmol/L VBG Potassium 5.1 5.1 (3.6-5.2) mmol/L Sodium 138.0 138.0 (132-148) mmol/L Chloride 109.0 H 109.0 H (98-107) mmol/L Glucose 170 H 143 H (65-105) mg/dl Lactate 3.9 H 2.7 H (0.7-2.1) mmol/L FiO2 21.0 21.0 % Potassium (3.6-5.0) mmol/L Carbon Dioxide (21-33) mmol/L Anion Gap (10-20) BUN (7-21) mg/dL Creatinine (0.7-1.2) mg/dl Est GFR ( Amer) Est GFR (Non-Af Amer) Random Glucose (70-110) mg/dL Calcium (8.4-10.5) mg/dL Phosphorus (2.5-4.5) mg/dL Magnesium (1.7-2.2) mg/dL Arterial Blood Potassium (3.6-5.2) mmol/L Venous Blood Potassium 5.1 5.1 (3.6-5.2) mmol/L 09/07/2006/12/18 06/12/18 Range/Units 07:15 07:15 01:50 WBC 31.6 H* (4.5-11.0) 10^3/ul RBC 4.19 (3.5-6.1) 10^6/uL Hgb 10.3 L (12.0-16.0) g/dL Hct 32.6 L (36.0-48.0) % MCV 77.8 L (80.0-105.0) fl MCH 24.6 L (25.0-35.0) pg MCHC 31.6 (31.0-37.0) g/dl RDW 19.1 H (11.5-14.5) % Plt Count 141 (120.0-450.0) 10^3/uL MPV 10.4 (7.0-11.0) fl Gran % 90.6 H (50.0-68.0) % Lymph % (Auto) 3.6 L (22.0-35.0) % [place] % (Auto) 4.5 (1.0-6.0) % Eos % (Auto) 1.2 L (1.5-5.0) % Baso % (Auto) 0.1 (0.0-3.0) % Gran # 28.65 H (1.4-6.5) Lymph # (Auto) 1.2 (1.2-3.4) [place] # (Auto) 1.4 H (0.1-0.6) Eos # (Auto) 0.4 (0.0-0.7) Baso # (Auto) 0.02 (0.0-2.0) K/mm3 Neutrophils % (Manual) 85 H (50.0-70.0) % Band Neutrophils % 3 H (0-2) % Lymphocytes % (Manual) 4 L (22.0-35.0) % Monocytes % (Manual) 8 H (1.0-6.0) % Nucleated RBC % 2 % pCO2 21 L (35-45) mm/Hg pO2 101.0 H (80-100) mm/Hg HCO3 12.4 L (21-28) mmol/L ABG pH 7.38 (7.35-7.45) ABG Total CO2 13.0 L (22-28) mmol.L ABG O2 Saturation 99.6 H (95-98) % ABG Base Excess -10.5 L (-2.0-3.0) mmol/L ABG Potassium 4.7 (3.6-5.2) mmol/L VBG pH (7.32-7.43) VBG pCO2 (40-60) VBG HCO3 (21-28) mmol/l VBG Total CO2 (22-28) mmol.L VBG O2 Sat (Calc) (40-65) % VBG Base Excess (0.0-2.0) mmol/L VBG Potassium (3.6-5.2) mmol/L Sodium 138 138.0 (132-148) mmol/L Chloride 110 H 112.0 H (98-107) mmol/L Glucose 142 H (65-105) mg/dl Lactate 2.6 H (0.7-2.1) mmol/L FiO2 32.0 % Potassium 5.1 H (3.6-5.0) mmol/L Carbon Dioxide 15 L (21-33) mmol/L Anion Gap 19 (10-20) BUN 137 H* (7-21) mg/dL Creatinine 3.0 H (0.7-1.2) mg/dl Est GFR ( Amer) 19 Est GFR (Non-Af Amer) 16 Random Glucose 117 H (70-110) mg/dL Calcium 8.2 L (8.4-10.5) mg/dL Phosphorus 7.6 H (2.5-4.5) mg/dL Magnesium 2.9 H (1.7-2.2) mg/dL Arterial Blood Potassium 4.7 (3.6-5.2) mmol/L Venous Blood Potassium (3.6-5.2) mmol/L Laboratory Results - last 24 hr 06/12/18 06/12/18 06/12/18 01:50 07:15 07:15 WBC 31.6 H* RBC 4.19 Hgb 10.3 L Hct 32.6 L MCV 77.8 L MCH 24.6 L MCHC 31.6 RDW 19.1 H Plt Count 141 MPV 10.4 Gran % 90.6 H Lymph % (Auto) 3.6 L [place] % (Auto) 4.5 Eos % (Auto) 1.2 L Baso % (Auto) 0.1 Gran # 28.65 H Lymph # (Auto) 1.2 [place] # (Auto) 1.4 H Eos # (Auto) 0.4 Baso # (Auto) 0.02 Neutrophils % (Manual) 85 H Band Neutrophils % 3 H Lymphocytes % (Manual) 4 L Monocytes % (Manual) 8 H Nucleated RBC % 2 pCO2 21 L pO2 101.0 H HCO3 12.4 L ABG pH 7.38 ABG Total CO2 13.0 L ABG O2 Saturation 99.6 H ABG Base Excess -10.5 L ABG Potassium 4.7 VBG pH VBG pCO2 VBG HCO3 VBG Total CO2 VBG O2 Sat (Calc) VBG Base Excess VBG Potassium Sodium 138.0 138 Chloride 112.0 H 110 H Glucose 142 H Lactate 2.6 H FiO2 32.0 Potassium 5.1 H Carbon Dioxide 15 L Anion Gap 19 BUN 137 H* Creatinine 3.0 H Est GFR ( Amer) 19 Est GFR (Non-Af Amer) 16 Random Glucose 117 H Calcium 8.2 L Phosphorus 7.6 H Magnesium 2.9 H Arterial Blood Potassium 4.7 Venous Blood Potassium 06/12/18 06/12/18 06/12/18 09:03 13:30 13:30 WBC RBC Hgb 10.7 L Hct 33.7 L MCV MCH MCHC RDW Plt Count MPV Gran % Lymph % (Auto) [place] % (Auto) Eos % (Auto) Baso % (Auto) Gran # Lymph # (Auto) [place] # (Auto) Eos # (Auto) Baso # (Auto) Neutrophils % (Manual) Band Neutrophils % Lymphocytes % (Manual) Monocytes % (Manual) Nucleated RBC % pCO2 pO2 42 57 H HCO3 ABG pH ABG Total CO2 ABG O2 Saturation ABG Base Excess ABG Potassium VBG pH 7.34 7.31 L VBG pCO2 27.0 L 26.0 L VBG HCO3 14.6 L 13.1 L VBG Total CO2 15.4 L 13.9 L VBG O2 Sat (Calc) 79.8 H 90.8 H VBG Base Excess -9.6 L -11.5 L VBG Potassium 5.1 5.1 Sodium 138.0 138.0 Chloride 109.0 H 109.0 H Glucose 143 H 170 H Lactate 2.7 H 3.9 H FiO2 21.0 21.0 Potassium Carbon Dioxide Anion Gap BUN Creatinine Est GFR ( Amer) Est GFR (Non-Af Amer) Random Glucose Calcium Phosphorus Magnesium Arterial Blood Potassium Venous Blood Potassium 5.1 5.1 Critical Care Progress Note - Nutrition Nutrition: Nutrition Category Date Time Status Heart Healthy Diet [DIET] Diets 06/07/18 Lunch Active Addendum Addendum: 06/12/18 15:12 ICU Attending Addendum: Patient seen and examined. Case reviewed on round with housestaff. Agree with resident note above with the following additions/exceptions: 62F with hx of COPD, breast cancer with mets s/p chemo/radiation (08/2017) and left lumpectomy, CKD (baseline Cr 2.6), HTN, bipolar disorder, depression admitted to the ICU for the second time this admission - this time for shock ( unclear etio). She was recently hospitalized this past May with acute on chronic renal failure, sob was tx inpatient and sent home. Did not do well at home, poor PO intake and incr SOB. Re-dmitted 06/06 directly to ICU for again sob and acute on chronic renal failure, severe sepsis. Stabilized with abx and IVF and transferrred to floors. Returns to ICU over the weekend with hypotension, elec lac, sob, leukocytosis and worsening kidney function. No signs of infection at this time however cont empiric broad abx while awaiting final cultures. Cardiogenic shock is possible given large volume load (incl'd blood) and reduced kidney function. Obstructive shock (PE?) also possible with immobility and hx of malignancy. H&H is stable now so doubt hypovolemic shock. At this point will cont levophed, check 2D Echo looking for any changes in wall motion, valves or right heart strain. Check doppler LE BL for DVT. Trend lac acid. Unclear steroid regimen. Ultimately would like to stop steroids but if she was on them for >2 weeks then would require a taper. Nephro on board, plan for HD today after catherter insertion by IR. This may increase her BP if she is volume overloaded and on the far end of the starling curve. For her COPD, cont duonebs, keep 02 sat 90-92% NO MORE IV FLUIDS for now Result of care as above Rest of care as noted above. Tim Paulson MD Primary Care Pediatrician Critical care time : 41 mins
[2018-06-12] MEDS: Budesonide 0.5 mg/2 ml Inhal Susp UD IH SCH ×2 (08:29→19:45)
--- NOTE | 2018-06-12 08:39 | CON ---
DATE: 06/10/2018 HISTORY OF PRESENT ILLNESS: Patient is a 62-year-old female with a history of schizoaffective disorder, Psychiatry has been following up on the medical floor and adjusting psychiatric medication dosing. I reviewed Dr. Kohli's consultation from 06/10/2018. I met with the patient at bedside this morning as well as spoke with the patient's daughter who was at the patient's bedside as well. The patient appears delirious as of now and to have a conversation with her as she can only provide current location after repeated questioning as well as current month. The patient appears very tired and disoriented; however, she has responses to questioning and denies any thoughts of harm herself or others. The patient does admits having hallucinations and daughter confirms this, however, she does not appear to be hallucinating at this time. Hallucination symptoms are seeing objects, this appears to be in the context of delusion as well and in the overall context of delirium. I have noted Dr. Kohli's medication adjustment yesterday and I spoke with daughter indicates the patient actually has been doing much better. There is no "shakiness" any further this morning and in later part of the day, yesterday and I did not observe the patient to have any lip or tremor of the jaw or shakiness in any of her extremities this morning at bedside. Thus far, she is tolerating her medications and has denied any side effects and the patient's daughter at bedside feels that this combination has been beneficial for her thus far. Both of them deny any further concerns and further the patient has been speaking well and doing a little bit better psychiatrically. Vital signs reviewed. Laboratory results were also reviewed. RELEVANT PSYCHIATRIC MEDICATIONS: Include Cogentin 0.5 mg t.i.d. and at bedtime, Ativan 1 mg p.o. t.i.d. p.r.n., the patient did not refuse any doses, Zyprexa Zydis 5 mg t.i.d. and at bedtime. IMPRESSION: The patient has a history of schizoaffective disorder and appears to be dealing with current delirium contributing to her confusion and psychotic at this time; however, she appears to be comfortable though mildly short of breath this morning. She is not actively hallucinating and family indicates that her possible side effects from the psychiatric medications have appeared to resolve. RECOMMENDATIONS: I will continue with current medication regimen. There is no acute indication patient's family believes that adjustments were beneficial and have improved the patient's motor symptoms, which appeared to be resolved at bedside during my visit this morning. Psychiatry will continue to follow the patient and visit with her every other day. Next followup will be on 06/12/[address] Kohli. Dean Branch MD
--- NOTE | 2018-06-12 08:42 | CON ---
DATE: 06/11/2018 HISTORY OF PRESENT ILLNESS: The patient is a 62-year-old female whom Psychiatry is following to ensure the patient is receiving ____ psychiatric management on the medical floor while she is being treated for shortness of breath in context of breast cancer with metastasis. The patient does have a history of schizoaffective disorder and hallucinations on the unit, likely with delirium, however, this appears to have improved recently. I had met with the patient at bedside yesterday . The patient at bedside this morning appears to be more alert and responsive with better focus and orientation , though it is difficult to maintain interview with her. I was told yesterday as in the middle of the day, family felt that the patient's tremors increased after the patient was given the dose of Zyprexa. I had authorized the decrease of Zyprexa to 2.5 mg every 12 hours at the time and with plan to further monitor the patient's mental status including hallucinations on the unit. Apparently, the patient has been improving in alertness and her tremors have appeared to have not recurred since the decrease of the dosage. She is not hallucinating on my interview today and delusions were not elicited, although, they have been present off and on in last couple of days. It is unclear if those have recurred in the last 24 hours. Son is at bedside and he does not indicate the presence of any hallucinations recently at this time. Presently, the patient appears depressed, however, she denies having any suicidal thoughts or wishes. She is superficially aware of her circumstances, the current month as well as location. She is able to provide this information. Again, she is not going regarding the symptoms. She appears to be fatigued at present, though not responding to internal stimuli and nursing notes indicate that there have been no incidences of agitation last night. Vital signs reviewed as well as recent labs. RELEVANT PSYCHIATRIC MEDICATIONS: Include Cogentin 0.5 mg p.o. at bedtime and 0.5 mg p.o. b.i.d., Zyprexa 2.5 mg p.o. every 12 hours. IMPRESSION: Schizoaffective disorder by history , symptoms of delirium off and on, continues to persist. Tremors have not recurred since decrease of Zyprexa yesterday. RECOMMENDATIONS: At this time, we will continue with current medications and further monitor the patient. It is difficult to determine effects of the medications in such a short interval of time and Psychiatry does not want to be every new symptom that appears. The patient's presentation must be monitored and evaluated very carefully to elucidate functioning at this time as well as tolerance to current psychiatric medications. Dean Branch MD
[2018-06-12 09:11] LABS: VENOUS BLOOD GAS BASE EXCESS -9.6 mmol/L (0.0-2.0); VENOUS BLOOD GAS PO2 42 mm/Hg (30-55); VENOUS BLOOD PH 7.34 (7.32-7.43)
[2018-06-12 10:12] LABS: BAND 3 % (0-2); LYMPHOCYTE 4 % (22.0-35.0); MONOCYTE 8 % (1.0-6.0); NEUTROPHIL 85 % (50.0-70.0); NUCLEATED RED BLOOD CELL 2 %
[2018-06-12] MEDS: Cefepime 1gm in NS 100ml 1 GM/100 ML BAG IVPB SCH (10:16)
[2018-06-12] MEDS: POLYETHYLENE GLYCOL 3350 17 GM/Dose PACKET PO SCH (10:17)
--- NOTE | 2018-06-12 12:08 | CP.PCM.PN ---
Subjective - Date & Time of Evaluation Date of Evaluation: 06/12/18 Time of Evaluation: 09:15 - Subjective Subjective: Noted events overnight, continues to have tachypnea and tachycardia and was transferred to ICU for closer observation and better fluid management. She has no fever, sleepy but easily arousable. Objective - Vital Signs/Intake and Output Vital Signs (last 24 hours): Temp Pulse Resp BP Pulse Ox 98.8 F 83 18 109/80 98 06/11/18 06:00 06/11/18 06:00 06/11/18 06:00 06/11/18 06:00 06/11/18 06:00 - Medications Medications: Current Medications Benzocaine/Menthol (Cepacol Sore Throat) 1 rosey MT Q2H PRN PRN Reason: Sore Throat Benztropine Mesylate (Cogentin) 0.5 mg PO HS [facility] Last Admin: 06/10/18 22:38 Dose: 0.5 mg Benztropine Mesylate (Cogentin) 0.5 mg PO BID [facility] Last Admin: 06/11/18 09:11 Dose: 0.5 mg Docusate Sodium (Colace) 200 mg PO DAILY [facility] Last Admin: 06/11/18 09:11 Dose: 200 mg Heparin Sodium (Porcine) (Heparin) 5,000 units SC Q12 TAZ PRN Reason: Protocol Last Admin: 06/11/18 09:10 Dose: 5,000 units Cefepime HCl (Maxipime 1gm) 1 gm in 100 mls @ 100 mls/hr IVPB DAILY TAZ PRN Reason: Protocol Last Admin: 06/10/18 10:00 Dose: 100 mls/hr Levalbuterol HCl (Xopenex) 1.25 mg IH [id number] [facility] Last Admin: 06/11/18 07:11 Dose: 1.25 mg Lidocaine HCl (Lidocaine 2% Viscous) 15 ml PO Q3H PRN PRN Reason: Sore Throat Last Admin: 06/10/18 18:51 Dose: 15 ml Lorazepam (Ativan) 1 mg PO TID PRN; Protocol PRN Reason: anxiety/agitation Olanzapine (Zyprexa) 2.5 mg PO Q12 TAZ PRN Reason: Protocol Last Admin: 06/11/18 09:11 Dose: 2.5 mg Pantoprazole Sodium (Protonix Ec Tab) 20 mg PO 0600 [facility] Last Admin: 06/11/18 06:57 Dose: 20 mg Polyethylene Glycol (Miralax) 17 gm PO DAILY TAZ Last Admin: 06/11/18 09:10 Dose: 17 gm Sodium Polystyrene Sulfonate (Kayexalate Susp) 30 gm PO ONCE ONE Stop: 06/11/18 11:01 Tramadol/Acetaminophen (Ultracet 37.5/325 Mg) 1 tab PO Q6H PRN PRN Reason: Pain, moderate (4-7) - Labs Labs: 06/11/18 07:50 06/11/18 07:50 PT 14.0 SECONDS (9.4-12.5) H 06/07/18 06:40 INR 1.21 06/07/18 06:40 APTT 27.5 Seconds (25.1-36.5) 06/09/18 06:45 - Constitutional Appears: Chronically Ill - Head Exam Head Exam: NORMAL INSPECTION - Respiratory Exam Respiratory Exam: Decreased Breath Sounds - Cardiovascular Exam Cardiovascular Exam: +S1, +S2 - GI/Abdominal Exam GI & Abdominal Exam: Soft. absent: Tenderness Assessment and Plan - Assessment and Plan (Free Text) Plan: Assessment probable sepsis from bilateral HCAP morbid obesity with BMI 47 HTN COPD depression with bipolar disorder chronic renal failure breast cancer with metastases S/P chemotherapy and radiation therapy S/P left lumpectomy Plan has had 5 days of Cefepime but patient still with tachypnea (which is multifactorial - pulmonary congestion, probable pneumonia) - will change to Merrem and Doxycycline and repeat septic work up since her WBC count has elevated further will continue to monitor clinically follow up Cardiology and Renal further recommendations overall prognosis is poor
[2018-06-12 13:41] LABS: VENOUS BLOOD GAS BASE EXCESS -11.5 mmol/L (0.0-2.0); VENOUS BLOOD GAS PO2 57 mm/Hg (30-55); VENOUS BLOOD PH 7.31 (7.32-7.43)
[2018-06-12 13:49] LABS: HEMOGLOBIN 10.7 g/dL (12.0-16.0)
[2018-06-12] MEDS ORDERED: Iodixanol 320 MG/ML 100 ML BOTTLE IV ONE (15:13)
[2018-06-12] MEDS ORDERED: Vasopressin 20 UNITS in Dextrose 5% In Water 100 ML IV SCH (17:00)
[2018-06-12 17:06] LABS: HEPATITIS B SURFACE AG Negative (NEGATIVE)
[2018-06-12 17:11] LABS: HEPATITIS B CORE AB NEGATIVE (NEGATIVE)
--- NOTE | 2018-06-12 17:21 | PN ---
DATE: 06/12/2018 SUBJECTIVE: The patient is 62 years old, seen and examined, short of breath at rest, sleepy, but arousable opens eyes on verbal command, looked pale, was given 2 blood transfusion over the weekend, got short of breath, so transferred to ICU. Family is by the bedside. PHYSICAL EXAMINATION VITAL SIGNS: She is afebrile, pulse 104, respiration 30, blood pressure 75/47. I do not know if this is accurate since the patient is morbidly obese. Her reading might not be accurate. We will discuss with the nurse. HEENT: She has symmetrical face. Pale conjunctivae. Nonicteric sclerae. LUNGS: Bilateral fair airflow. HEART: S1 and S2 audible. Tachycardic. ABDOMEN: Soft, obese, nontender. No rebound. No guarding. NEUROLOGICAL: She is sleepy, but arousable. LABORATORY EXAMINATION: WBC is 31.6, hemoglobin 10.3, hematocrit 32.6, platelets of 141. Chemistry: Sodium 138, potassium 5.1, chloride 110, CO2 of 15, BUN 137, creatinine 3, blood sugar 117. Blood cultures and urine cultures are negative. ASSESSMENT: 1. Leukocytosis, etiology unclear. She is on tapering dose of steroid, not actively wheezing, that is why steroid was tapered down. 2. Worsening renal failure. 3. Metastatic breast cancer. 4. History of bipolar disorder. 5. Hyperkalemia. PLAN: Currently, the patient is on Maxipime and vancomycin, one dose was given. Her Zyprexa has been tapered down to 2.5 twice a day. She is on nebulizer treatment. Discussed with Dr. Giron. Plan for dialysis in a.m. We will reevaluate the patient in a.m. Jessica Flores MD
--- NOTE | 2018-06-12 18:01 | PN ---
DATE: 06/12/2018 FOLLOWUP NOTE SUBJECTIVE: The patient was followed up today. Notes reviewed. The patient was transferred to ICU unit for leukocytosis as well as not able to be arousable. The patient got 2 of transfusion over the weekend and the patient got shortness of breath. Psychiatry team was involved because the patient has history of mental illness. The patient was on psychotropic medication and family expressed concerns about upper extremity shakiness. This web content writer confirmed medication with the pharmacy. Medication list was filed in the chart. Over the weekend, Dr. Branch decreased the dose of Zyprexa to 2.5 mg twice a day. Psychiatry team obtained collateral information from the patient's psychiatrist, who reported that the patient was seen by psychiatrist every 2-3 months since 12/2016. The patient initially was on Zyprexa 2.5 mg in 12/2016. Due to lack of improvement, the patient was increased to Zyprexa 20 mg daily. The patient also expressed psychotic symptoms that people are going into her bathroom and look at the TV. During the last visit with the psychiatrist, the patient did not present to be depressed or suicidal and the patient did not exhibit any upper extremity shakiness. The patient also was started on trazodone back then. This web content writer evaluated the patient in the ICU. The patient is lethargic. The patient's family is next to her. As per nursing report, the patient was not exhibiting any aggressive or agitated behavior. The patient is compliant with the medication. Has poor appetite. Vital signs reviewed. Pulse is 115, blood pressure 100/70, respirations 34 and oxygen saturation is 97. Medications reviewed. The patient is on Cogentin 0.5 mg three times a day, Pulmicort, Colace. The patient is on doxycycline, heparin, levalbuterol, lidocaine. Also, the patient is on Ativan 1 mg three times a day as needed for agitation. The patient is on meropenem. Zyprexa was decreased to 2.5 mg twice a day, but the patient's family refused to provide that medication to the patient. The patient is on Protonix, MiraLax, tramadol, vasopressin. Labs were reviewed. WBC cells were elevated at 31.6, hemoglobin and hematocrit 10.7 and 33.7. Granulocytes elevated. Chemistry reviewed. BUN 137, potassium 5.1. Serology reviewed. The patient was seen by Infectious Disease doctor, Dr. Humphrey. Notes from Dr. Branch, Dr. Mariano reviewed as well. As per Infectious Disease, most likely the patient has sepsis. MENTAL STATUS EXAMINATION: This web content writer was not able to arouse the patient. The patient is deeply sleeping and the patient's family requested not to wake the patient up. As per staff, the patient does not exhibit any aggressive or agitated behavior, but the patient has some psychomotor retardation and hypoactive delirium. IMPRESSION: As per history, the patient has most likely either schizophrenia versus schizoaffective disorder. The patient has multiple medical issues. Most recently, the patient was diagnosed with sepsis, right now she is in Intensive Care Unit. PLAN: Medications confirmed. Agree with Dr. Branch to decrease the dose of Zyprexa because the patient's dose was increased from 2.5 mg to 20 mg and it is significantly increased. We will follow up and advise accordingly on this patient. Overall prognosis is very guarded. Discussed with the family. Thank you very much for letting me participate in the care of your patient. Management of this patient took more than 45 minutes of this web content writer's time. Liseth Kohli MD
--- NOTE | 2018-06-12 19:00 | VASCULAR ---
PROCEDURE: Ultrasound and fluoroscopic tunneled left IJ dialysis catheter. CLINICAL HISTORY: ESRD PHYSICIAN(S): Dave Pino M.D. TECHNIQUE: The relative risks and indications for the procedure were explained to the patient and her son and informed written consent obtained. The patient was placed supine on the arteriography table and the left neck/chest was prepped and draped in the usual sterile fashion. 1% Xylocaine was used to anesthetize the skin and soft tissues at the puncture site. Conscious sedation and monitoring were provided throughout the procedure by a nurse. Under direct ultrasound guidance, the leftinternal jugular vein was punctured with a micropuncture set. A 0.035 Glidewire was advanced into the IVC. Sequential dilatation was performed with subsequent placement of a 35 cmCannon II catheter with its tip in the right atrium. A retrograde tunnel below the left clavicle was performed. The catheter was trimmed and the hub attached. Both ports aspirate and inject easily. The catheter was secured and a dressing applied. The patient tolerated the procedure well. IMPRESSION: 1. Ultrasound and fluoroscopically placed left IJ tunneled dialysis catheter.
--- NOTE | 2018-06-12 19:16 | CARD ---
APPROVED REPORT Date of service: 06/12/2018 EXAM: Two-dimensional and M-mode echocardiogram with Doppler and color Doppler. INDICATION FLUID OVERLOAD/PE 2D DIMENSIONS IVSd1.2 (0.7-1.1cm)LVDd3.5 (3.9-5.9cm) PWd1.3 (0.7-1.1cm)LVDs2.3 (2.5-4.0cm) FS (%) 34.0 %LVEF (%)64.0 (>50%) M-Mode DIMENSIONS Aortic Root3.10 (2.2-3.7cm)Aortic Cusp Exc.1.60 (1.5-2.0cm) Aortic Valve AoV Peak Ygrazqnk398.0cm/Irving Peak GR.7mmHg Mitral Valve E/A ratio0.0 TDI E/Lateral E'0.0E/Medial E'0.0 Tricuspid Valve TR Peak [id number]/sRAP [id number] Peak Gr.32mmHg CDMG20pbOg LEFT VENTRICLE The left ventricle is normal size. There is moderate concentric left ventricular hypertrophy. The left ventricular function is normal.RF-60-65% There is normal LV segmental wall motion. Transmitral Doppler flow pattern is Grade III-reversible restrictive diastolic dysfunction. No left ventricle thrombus noted on this study. There is no ventricular septal defect visualized. There is no left ventricular aneurysm. There is no mass noted in the left ventricle. RIGHT VENTRICLE The right ventricle is mildly dilated. There is normal right ventricular wall thickness. The right ventricular systolic function is normal. ATRIA The left atrium is mildly dilated. The right atrium size is normal. The interatrial septum is intact with no evidence for an atrial septal defect. AORTIC VALVE The aortic valve is thickened but opens well. No aortic regurgitation is present. There is no aortic valvular stenosis. There is no aortic valvular vegetation. MITRAL VALVE The mitral valve is thickened but opens well. Mitral regurgitation is trace. There is no mitral valve stenosis. There is no evidence of mitral valve prolapse. TRICUSPID VALVE The tricuspid valve leaflets are thickened , but open well. There is mild to moderate tricuspid regurgitation. There is no tricuspid valve stenosis. There is no tricuspid valve prolapse or vegetation. PULMONIC VALVE The pulmonary valve is normal in structure. There is mild pulmonic valvular regurgitation. There is no pulmonic valvular stenosis. GREAT VESSELS The aortic root is normal in size. The ascending aorta is normal in size. The pulmonary artery is normal. The IVC is normal in size and collapses >50% with inspiration. PERICARDIAL EFFUSION There is no pleural effusion. There is no pericardial effusion. <Conclusion> The left ventricle is normal size. There is moderate concentric left ventricular hypertrophy. The left ventricular function is normal.RF-60-65% No aortic regurgitation is present. Mitral regurgitation is trace. There is mild to moderate tricuspid regurgitation. There is no pericardial effusion.
--- NOTE | 2018-06-12 20:05 | PN ---
DATE: 06/12/2018 REASON FOR CONSULTATION AND FOLLOWUP: Shortness of breath, hypotension, moved to ICU. SUBJECTIVE: The patient denies any chest pain, shortness of breath, or any palpitation. OBJECTIVE: GENERAL: Not in apparent distress. VITAL SIGNS: Temperature afebrile, heart rate 117, blood pressure 165/63. HEENT: PERRLA. Extraocular muscles intact. NECK: Supple. No carotid bruits or thyromegaly. CHEST: Clear to auscultation. HEART: S1 and S2 regular. ABDOMEN: Soft. EXTREMITIES: Clubbing and cyanosis negative. LABORATORY DATA: Blood workup: WBC 31.6, hemoglobin 13.3, hematocrit 32.6, platelet count 141. Chemistry shows sodium 138, potassium 5.1, chloride 110, carbon dioxide 15, anion gap of 19, BUN 137, creatinine 3. IMPRESSION AND PLAN: A 62-year-old female with past medical history of breast cancer, initially admitted on 05/05/2018 to [facility] [place] with acute renal failure, had nodules in the liver, status post lumpectomy, left breast possibly breast cancer with metastasis, history of hypertension, chronic obstructive pulmonary disease, bipolar disorder, depression, dyslipidemia, gout, renal insufficiency. Recent V/Q was negative for pulmonary embolism. CT of the chest shows multiple pulmonary nodule, most likely metastatic from the lung cancer. Recent echo, ejection fraction 81%, normal left ventricular function, hemoglobin is low, who was in the telemetry yesterday. The patient dropped the blood pressure and moved to ICU, now currently on Levophed with worsening renal insufficiency. Post blood transfusion, hemoglobin improved to 10.7 with WBC count of 31.6. Shortness of breath, multifactorial secondary to obesity secondary to pulmonary nodule and breast cancer. The patient's renal insufficiency possibly needs dialysis. For now, continue the Levophed as tolerated. Since the blood pressure is 160, we will wean off the Levophed. Continue deep venous thrombosis prophylaxis. Consider dialysis. We will follow with you. Thank you, Dr. Flores, for providing us the opportunity in taking care of Leydi Strong. Dee Mar MD
[2018-06-12] MEDS: Meropenem 500 MG in Sodium Chloride 0.9% 50 ML IVPB SCH (22:01)
--- NOTE | 2018-06-12 22:13 | PN ---
DATE: 06/12/2018 PULMONARY CRITICAL CARE PROGRESS NOTE REFERRING PHYSICIAN: Jessica Flores MD SUBJECTIVE: She is lethargic and sleepy, just come back from dialysis catheter placement. She received Versed and fentanyl. On dialysis, blood pressure dropped and Levophed has to be increased. With the loud stimuli, able to wake her up. Son is at bedside. Nursing staff is at bedside. She is on 2 liter nasal cannula, occasionally has a cough, no sputum production. No hemoptysis. No hematemesis. No hematuria. Has anasarca. OBJECTIVE: GENERAL: Lethargic, afebrile. VITAL SIGNS: Heart rate is 110, respiratory rate is 20, blood pressure 90/60, pulse oximetry 97% on nasal cannula. HEENT: Moist mucous membrane. Crowded airway. Mallampati score is 4. NECK: Supple. No JVD. Has a left-sided dialysis catheter. LUNGS: Have a poor effort but fair airflow with few rhonchi. HEART: S1 and S2. ABDOMEN: Soft, nontender, no organomegaly. EXTREMITIES: Has edema extremities. NEUROLOGIC: Sleepy but arousable with loud stimuli. MEDICATIONS: She is on Ativan 1 mg every 8 hours p.r.n., Cepacol lozenges every 2 hours p.r.n., Cogentin 0.5 mg at bedtime and also 0.5 mg twice a day, Colace 200 mg daily, doxycycline 100 mg twice a day, heparin 5000 units subcu every 12 hours. She is on Levophed, lidocaine viscous at the affected area every 3 hours, meropenem 500 mg every 12 hours, MiraLax 17 g daily, Protonix 20 mg daily, Pulmicort inhaled twice a day, Tylenol p.r.n., Ultracet 37.5/325 one tab every 6 hours p.r.n., also vasopressin was added, Xopenex inhaled every 6 hours, Zyprexa 2.5 mg every 12 hours. LABORATORY DATA: Shows hemoglobin 10.3, hematocrit 32.6, WBC 31,000, platelet count is 141. She has ABG done, which shows pH 7.38, pCO2 of 21, O2 of 101 that was on nasal cannula. Sodium 138, potassium 5.1, chloride 110, bicarbonate 15, BUN 137, creatinine 3. Glucose 117. Calcium 8.2, phosphorous 7.6, magnesium 2.9. Microbiology: Blood culture and urine culture, there is no growth. She had echocardiogram done, report is still pending. IMPRESSION AND PLAN: Metastatic breast cancer to the lung, liver; renal failure; bipolar disorder; history of hypertension; chronic lung disease; may have sleep apnea syndrome. Spoke to nursing staff. Also spoke to dialysis nurse. Son is at the bedside. Levophed was increased for dialysis. Need to watch closely for hemodynamic and this is the first dialysis for her. If need to may place on BiPAP, 09/07 with 40% oxygen. Continue antibiotics. We will place her on hydrocortisone 100 mg three times a day. Followup lactic acid, arterial blood gas, CBC, CMP in the morning. Critical care time spent more than 35 minutes. Thank you and we will follow with you. Dee German MD
--- NOTE | 2018-06-12 22:27 | PN ---
DATE: 06/12/2018 SUBJECTIVE: The patient is seen in the ICU. She is groggy. She is just coming back from a catheter placement for dialysis. She is arousable. She appears to be in mild respiratory distress. She is starting first dialysis treatment. Her urine output has been poor. Her 24-urine output was only 300 mL. PHYSICAL EXAMINATION: GENERAL: Morbidly obese elderly lady lying in bed in the ICU, in mild respiratory distress. VITAL SIGNS: Blood pressure 100/70, heart rate 112, respiratory rate 32, and temperature 98.3, T-max was 100.5. HEENT: Normocephalic, atraumatic, positive pallor. NECK: Supple, no JVD. LUNGS: Bilateral equal air entry, bilateral equal expansion, decreased air entry at bases. CARDIAC: S1 and S2, regular rate and rhythm, no murmur, no rub. ABDOMEN: Obese, distended, soft, nontender, bowel sounds present. EXTREMITIES: 3+ pitting edema of the lower extremities. INTAKE AND OUTPUT: 715/300. LABORATORY DATA: WBC 31.6, hemoglobin 10.3, hematocrit 32.6, platelets 141. Sodium 138, potassium 5.1, chloride 110, CO2 of 15, BUN 137, creatinine 3, glucose 117, calcium 8.2, phosphorus 7.6, magnesium 2.9. Blood cultures, no growth. Urine culture, no growth. Echocardiogram showing left ventricular size is normal, moderate concentric left ventricular hypertrophy, ejection fraction 65%, mildly dilated right ventricle, mildly dilated left atrium, [id number] tricuspid regurg, no pericardial effusion. CURRENT MEDICATIONS: Ativan 1 mg t.i.d. p.r.n., Cepacol, Cogentin 0.5 at bedtime, Cogentin 0.5 b.i.d., Colace, doxycycline 100 every 12 hours, heparin 5000 subcu every 12 hours, Levophed 10 mcg per minute, meropenem 500 every 12 hours, MiraLax 17 g, Protonix, Solu-Cortef 100 every 8 hours started today, Tylenol, vasopressin, Xopenex, olanzapine, and Zyprexa. ASSESSMENT: 1. Acute kidney injury superimposed on chronic kidney disease? 2. Worsening renal function. 3. Hyperkalemia. 4. Anion gap metabolic acidosis. 5. Hyperphosphatemia. 6. Severe anemia. 7. Respiratory failure. 8. Stage IV metastatic breast cancer with lung metastasis, liver metastasis. 9. Bipolar disorder. PLAN: 1. Starting dialysis for progressive renal insufficiency, oligoanuric at this time. 2. Continue Levophed for pressor support. 3. Avoid nephrotoxins. 4. Will arrange for dialysis again tomorrow. 5. Monitor daily labs. Dialysis treatment had to be discontinued because of low blood pressure. Case discussed with ICU attending. The treatment stopped. The patient is to start vasopressin. We will attempt again tomorrow. Case discussed with dialysis staff. Case discussed with ICU staff. Case discussed with son at bedside. More than 35 minutes spent in the care of this critically ill patient. Loreta Giron MD
[2018-06-13] MEDS: Levalbuterol 1.25 MG/3 ML Inhal Soln UD IH SCH ×4 (01:00→19:40)
--- NOTE | 2018-06-13 01:26 | PN ---
DATE: 06/12/2018 SUBJECTIVE: She is in respiratory distress and drowsy. She has been hypotensive since yesterday and currently on pressor support. Dialysis was tried today, but was stopped due to hypotension. She also had insertion of A-line today. Highest temperature was 100.5. White count is elevated at 31,000. Daughter at bedside. REVIEW OF SYSTEMS: As per HPI. Rest of 12-point review of systems reviewed negative. PHYSICAL EXAMINATION: GENERAL: Drowsy, arousable, tachycardia plus heart rate is 112, tachypnea. VITAL SIGNS: Respiratory rate 32 per minute, blood pressure 122/64, on pressor support. Oxygen saturation 100% on oxygen by nasal cannula. HEENT: Pallor positive. NECK: No lymphadenopathy. CHEST: Air entry present and equal bilateral, bilateral conducted sounds present. ABDOMEN: Soft, nontender, no hepatosplenomegaly. EXTREMITIES: Bilateral edema. PIPELINE SYSTEMS OPERATOR: Drowsy, arousable. Moving all the limbs. No focal sensorimotor deficits. LABORATORY DATA: White count 31,000, hemoglobin 10.3, hematocrit 32.6, platelet count 141. Sodium 138, potassium 5.1, creatinine 3. MEDICATIONS: Reviewed. ASSESSMENT: 1. Stage IV breast cancer, metastatic lesion in the lung and the liver. 2. Septic shock, source of sepsis could not be identified. Blood culture and urine culture, negative. 3. Cardiovascular circulatory failure, on pressor support. 4. Renal failure. PLAN: Hemodialysis tried, was interrupted due to hypotension. Dr. Giron from Nephrology following. Currently on intravenous antibiotics as per ID. Heparin 5000 b.i.d. for deep vein thrombosis prophylaxis. Prognosis is poor. Daughter at bedside, discussed with the daughter. Maricruz Mariano MD
[2018-06-13] MEDS: Pantoprazole 20 mg EC Tab PO SCH (05:45)
[2018-06-13 06:30] LABS: ARTERIAL BLOOD GAS HCO3 12.4 mmol/L (21-28); ARTERIAL BLOOD GAS HEMOGLOBIN 10.4 g/dL (11.7-17.4); ARTERIAL BLOOD GAS O2 CAPACITY 14.2 mL/dl (16-24); ARTERIAL BLOOD GAS O2 CONTENT 14.1 ML/dl (15-23); ARTERIAL BLOOD GAS O2 SAT 99.1 % (95-98); ARTERIAL BLOOD GAS PCO2 21 mm/Hg (35-45); ARTERIAL BLOOD GAS PH 7.38 (7.35-7.45)
[2018-06-13 06:52] LABS: VENOUS BLOOD GAS PO2 125 mm/Hg (30-55); VENOUS BLOOD PH 7.38 (7.32-7.43)
[2018-06-13 07:12] LABS: ALB/GLOB RATIO 0.9 (1.1-1.8); ALBUMIN 2.4 g/dL (3.0-4.8); CALCIUM 7.8 mg/dL (8.4-10.5)
[2018-06-13 07:15] LABS: HEMOGLOBIN 10.2 g/dL (12.0-16.0); MEAN CORPUSCULAR HEMOGLOBIN 24.4 pg (25.0-35.0); MEAN CORPUSCULAR HGB CONC 31.3 g/dl (31.0-37.0); MEAN PLATELET VOLUME 10.7 fl (7.0-11.0); RBC 4.18 10^6/uL (3.5-6.1); RED CELL DISTRIBUTION WIDTH 19.6 % (11.5-14.5)
[2018-06-13 07:18] LABS: TROPONIN I 0.06 ng/mL
--- NOTE | 2018-06-13 07:25 | CP.CCUPN ---
<Mariel Cid - Last Filed: 06/13/18 13:46> CCU Subjective - Physician Review Subjective (Free Text): Patient seen and examined this AM at bedside.patient had temperature of 102 overnight with continued tachycardia. Patient is tachypneic at rest on 3L NC. She denies headache, chest pain, abdominal pain, and calf/extremity pain. 06/13/18 07:22 Patient required norepinephrine, vasopressin and dopamine to maintain adequate BP for dialysis this morning. dopamine was stopped after dialysis. potassium improved after dialysis but lactate remained elevated at 4.7 06/13/18 12:39 CCU Objective - Vital Signs / Intake & Output Vital Signs (Last 4 hours): Vital Signs BP 06/13/18 04:30 100/60 Intake and Output (Last 8hrs): Intake & Output 06/12/18 06/13/18 06/13/18 22:59 06:59 14:59 Intake Total 783 775 Output Total 100 200 Balance 683 575 Intake: IV 543 775 Right Subclavian 303 560 Right Wrist 0 Oral 240 Output: Urine 100 200 2-way Urethral 100 200 Stool 0 0 Emesis 0 - Physical Exam Head: Positive for: Atraumatic Pupils: Positive for: PERRL Extroacular Muscles: Positive for: EOMI Conjunctiva: Positive for: Normal Mouth: Positive for: Moist Mucous Membranes Neck: Positive for: Normal Range of Motion Respiratory/Chest: Positive for: Good Air Exchange, Wheezes (bilateral expiratory wheeze), Tachypneic. Negative for: Clear to Auscultation, Respiratory Distress, Accessory Muscle Use, Tender to Palpation Cardiovascular: Positive for: Normal S1, S2, Tachycardic Abdomen: Positive for: Normal Bowel Sounds. Negative for: Tenderness, Rebound, Guarding Upper Extremity: Positive for: Edema, Normal ROM Lower Extremity: Positive for: Normal Inspection, Edema. Negative for: CALF TENDERNESS, Tenderness, Deformity Neurological: Positive for: GCS=15, CN II-XII Intact, Speech Normal Skin: Positive for: Warm, Dry, Normal Color Psychiatric: Positive for: Lethargic - Medications Active Medications: Active Medications Generic Name Dose Route Start Last Admin Trade Name Freq PRN Reason Stop Dose Admin Acetaminophen 650 mg 06/11/18 15:34 06/12/18 02:18 Tylenol 325mg Tab PO 650 mg Q6H PRN Administration Fever >100.4 F Benzocaine/Menthol 1 rosey 06/10/18 18:45 Cepacol Sore Throat MT Q2H PRN Sore Throat Benztropine Mesylate 0.5 mg 06/09/18 22:00 06/12/18 22:02 Cogentin PO Not Given HS TAZ Benztropine Mesylate 0.5 mg 06/10/18 10:00 06/12/18 13:09 Cogentin PO Not Given BID TAZ Budesonide 0.5 mg 06/11/18 20:00 06/12/18 19:45 Pulmicort Respules IH 0.5 mg [id number] TAZ Administration Docusate Sodium 200 mg 06/10/18 12:00 06/12/18 10:15 Colace PO 200 mg DAILY TAZ Administration Heparin Sodium (Porcine) 5,000 units 06/08/18 22:00 06/12/18 22:01 Heparin SC 5,000 units Q12 TAZ Administration Protocol Hydrocortisone Sodium Succinate 100 mg 06/12/18 22:00 06/13/18 05:48 Solu-Cortef IVP 100 mg Q8 TAZ Administration NOREPINEPHRINE BIT/0.9 % NACL 4 mg in 250 mls @ 15 mls/hr 06/11/18 16:29 07/20 23:49 Levophed 4 Mg/ 250 Ml Ns Premixed IV 10 mcg/min .[id number] PRN 37.5 mls/hr TITRATE PER MD ORDER Administration Protocol 4 MCG/MIN Meropenem 500 mg/ Sodium 50 mls @ 100 mls/hr 06/12/18 22:00 06/12/18 22:01 Chloride IVPB 06/17/18 22:01 100 mls/hr Q12 TAZ Administration Protocol Doxycycline Hyclate 100 mg/ 100 mls @ 100 mls/hr 06/12/18 22:00 06/12/18 22: 01 Sodium Chloride IVPB 100 mls/hr Q12 TAZ Administration Protocol Vasopressin 20 units/ Sodium 101 mls @ 9.09 mls/hr 06/12/18 17:11 06/13/18 04 :30 Chloride IV 9.09 mls/hr .[id number] TAZ Administration Protocol 0.03 U/MIN Levalbuterol HCl 1.25 mg 06/07/18 02:00 09/11/18 01:00 Xopenex IH 1.25 mg [id number] TAZ Administration Lidocaine HCl 15 ml 06/10/18 18:43 06/10/18 18:51 Lidocaine 2% Viscous PO 15 ml Q3H PRN Administration Sore Throat Lorazepam 1 mg 06/09/18 18:15 06/11/18 23:48 Ativan PO 1 mg TID PRN Administration anxiety/agitation Protocol Olanzapine 2.5 mg 06/10/18 22:00 06/12/18 22:02 Zyprexa PO Not Given Q12 [facility] Protocol Pantoprazole Sodium 20 mg 06/08/18 09:35 06/13/18 05:45 Protonix Ec Tab PO Not Given 0600 [facility] Polyethylene Glycol 17 gm 06/10/18 12:00 06/12/18 10:17 Miralax PO 17 gm DAILY TAZ Administration Tramadol/Acetaminophen 1 tab 06/08/18 12:01 Ultracet 37.5/325 Mg PO Q6H PRN Pain, moderate (4-7) - Patient Studies Lab Studies: Lab Studies 06/13/18 06/13/18 06/13/18 Range/Units 06:27 06:26 06:25 WBC (4.5-11.0) 10^3/ul RBC (3.5-6.1) 10^6/uL Hgb (12.0-16.0) g/dL Hct (36.0-48.0) % MCV (80.0-105.0) fl MCH (25.0-35.0) pg MCHC (31.0-37.0) g/dl RDW (11.5-14.5) % Plt Count (120.0-450.0) 10^3/uL MPV (7.0-11.0) fl Gran % (50.0-68.0) % Lymph % (Auto) (22.0-35.0) % [place] % (Auto) (1.0-6.0) % Eos % (Auto) (1.5-5.0) % Baso % (Auto) (0.0-3.0) % Gran # (1.4-6.5) Lymph # (Auto) (1.2-3.4) [place] # (Auto) (0.1-0.6) Eos # (Auto) (0.0-0.7) Baso # (Auto) (0.0-2.0) K/mm3 Neutrophils % (Manual) (50.0-70.0) % Band Neutrophils % (0-2) % Lymphocytes % (Manual) (22.0-35.0) % Monocytes % (Manual) (1.0-6.0) % Nucleated RBC % % pCO2 21 L (35-45) mm/Hg pO2 98.0 (30-55) mm/Hg HCO3 12.4 L (21-28) mmol/L ABG pH 7.38 (7.35-7.45) ABG Total CO2 13.0 L (22-28) mmol.L ABG O2 Saturation 99.1 H (95-98) % ABG O2 Content 14.1 L (15-23) ML/dl ABG Base Excess -11.0 L (-2.0-3.0) mmol/L ABG Hemoglobin 10.4 L (11.7-17.4) g/dL ABG Carboxyhemoglobin 2.0 H (0.5-1.5) % POC ABG HHb (Measured) 0.9 (0-5) % ABG Methemoglobin 1.9 (0.0-3.0) % ABG O2 Capacity 14.2 L (16-24) mL/dl VBG pH (7.32-7.43) VBG pCO2 (40-60) VBG HCO3 (21-28) mmol/l VBG Total CO2 (22-28) mmol.L VBG O2 Sat (Calc) (40-65) % VBG Base Excess (0.0-2.0) mmol/L VBG Potassium (3.6-5.2) mmol/L Hgb O2 Saturation 95.3 (95.0-98.0) % Glucose (65-105) mg/dl Lactate (0.7-2.1) mmol/L FiO2 40.0 % Sodium 139 (132-148) mmol/L Potassium 5.5 H (3.6-5.0) mmol/L Chloride 110 H (98-107) mmol/L Carbon Dioxide 14 L (21-33) mmol/L Anion Gap 21 H (10-20) BUN (7-21) mg/dL Creatinine (0.7-1.2) mg/dl Est GFR ( Amer) Est GFR (Non-Af Amer) POC Glucose (mg/dL) 151 H (65-110) mg/dL Random Glucose 167 H (70-110) mg/dL Calcium 7.8 L (8.4-10.5) mg/dL Phosphorus (2.5-4.5) mg/dL Magnesium (1.7-2.2) mg/dL Total Bilirubin 2.7 H (0.2-1.3) mg/dL AST 412 H D (14-36) U/L ALT 60 H (7-56) U/L Alkaline Phosphatase 847 H (38-126) U/L Troponin I 0.06 ng/mL Total Protein 5.2 L (5.8-8.3) g/dL Albumin 2.4 L (3.0-4.8) g/dL Globulin 2.8 gm/dL Albumin/Globulin Ratio 0.9 L (1.1-1.8) Venous Blood Potassium (3.6-5.2) mmol/L Hep Bs Antigen (NEGATIVE) Hep Bs Antibody (NEGATIVE) Hep B Core IgM Ab (NEGATIVE) 06/13/18 06/12/18 06/12/18 Range/Units 06:25 20:30 20:02 WBC (4.5-11.0) 10^3/ul RBC (3.5-6.1) 10^6/uL Hgb (12.0-16.0) g/dL Hct (36.0-48.0) % MCV (80.0-105.0) fl MCH (25.0-35.0) pg MCHC (31.0-37.0) g/dl RDW (11.5-14.5) % Plt Count (120.0-450.0) 10^3/uL MPV (7.0-11.0) fl Gran % (50.0-68.0) % Lymph % (Auto) (22.0-35.0) % [place] % (Auto) (1.0-6.0) % Eos % (Auto) (1.5-5.0) % Baso % (Auto) (0.0-3.0) % Gran # (1.4-6.5) Lymph # (Auto) (1.2-3.4) [place] # (Auto) (0.1-0.6) Eos # (Auto) (0.0-0.7) Baso # (Auto) (0.0-2.0) K/mm3 Neutrophils % (Manual) (50.0-70.0) % Band Neutrophils % (0-2) % Lymphocytes % (Manual) (22.0-35.0) % Monocytes % (Manual) (1.0-6.0) % Nucleated RBC % % pCO2 (35-45) mm/Hg pO2 125 H (30-55) mm/Hg HCO3 (21-28) mmol/L ABG pH (7.35-7.45) ABG Total CO2 (22-28) mmol.L ABG O2 Saturation (95-98) % ABG O2 Content (15-23) ML/dl ABG Base Excess (-2.0-3.0) mmol/L ABG Hemoglobin (11.7-17.4) g/dL ABG Carboxyhemoglobin (0.5-1.5) % POC ABG HHb (Measured) (0-5) % ABG Methemoglobin (0.0-3.0) % ABG O2 Capacity (16-24) mL/dl VBG pH 7.38 (7.32-7.43) VBG pCO2 22.0 L (40-60) VBG HCO3 13.0 L (21-28) mmol/l VBG Total CO2 13.7 L (22-28) mmol.L VBG O2 Sat (Calc) 100.2 H (40-65) % VBG Base Excess -10.0 L (0.0-2.0) mmol/L VBG Potassium 5.6 H (3.6-5.2) mmol/L Hgb O2 Saturation (95.0-98.0) % Glucose 170 H (65-105) mg/dl Lactate 4.1 H* (0.7-2.1) mmol/L FiO2 21.0 % Sodium 137.0 (132-148) mmol/L Potassium (3.6-5.0) mmol/L Chloride 109.0 H (98-107) mmol/L Carbon Dioxide (21-33) mmol/L Anion Gap (10-20) BUN (7-21) mg/dL Creatinine (0.7-1.2) mg/dl Est GFR ( Amer) Est GFR (Non-Af Amer) POC Glucose (mg/dL) 128 H (65-110) mg/dL Random Glucose (70-110) mg/dL Calcium (8.4-10.5) mg/dL Phosphorus (2.5-4.5) mg/dL Magnesium (1.7-2.2) mg/dL Total Bilirubin (0.2-1.3) mg/dL AST (14-36) U/L ALT (7-56) U/L Alkaline Phosphatase (38-126) U/L Troponin I 0.07 D ng/mL Total Protein (5.8-8.3) g/dL Albumin (3.0-4.8) g/dL Globulin gm/dL Albumin/Globulin Ratio (1.1-1.8) Venous Blood Potassium 5.6 H (3.6-5.2) mmol/L Hep Bs Antigen (NEGATIVE) Hep Bs Antibody (NEGATIVE) Hep B Core IgM Ab (NEGATIVE) 06/12/18 06/12/18 06/12/18 Range/Units 13:30 13:30 13:30 WBC (4.5-11.0) 10^3/ul RBC (3.5-6.1) 10^6/uL Hgb 10.7 L (12.0-16.0) g/dL Hct 33.7 L (36.0-48.0) % MCV (80.0-105.0) fl MCH (25.0-35.0) pg MCHC (31.0-37.0) g/dl RDW (11.5-14.5) % Plt Count (120.0-450.0) 10^3/uL MPV (7.0-11.0) fl Gran % (50.0-68.0) % Lymph % (Auto) (22.0-35.0) % [place] % (Auto) (1.0-6.0) % Eos % (Auto) (1.5-5.0) % Baso % (Auto) (0.0-3.0) % Gran # (1.4-6.5) Lymph # (Auto) (1.2-3.4) [place] # (Auto) (0.1-0.6) Eos # (Auto) (0.0-0.7) Baso # (Auto) (0.0-2.0) K/mm3 Neutrophils % (Manual) (50.0-70.0) % Band Neutrophils % (0-2) % Lymphocytes % (Manual) (22.0-35.0) % Monocytes % (Manual) (1.0-6.0) % Nucleated RBC % % pCO2 (35-45) mm/Hg pO2 57 H (30-55) mm/Hg HCO3 (21-28) mmol/L ABG pH (7.35-7.45) ABG Total CO2 (22-28) mmol.L ABG O2 Saturation (95-98) % ABG O2 Content (15-23) ML/dl ABG Base Excess (-2.0-3.0) mmol/L ABG Hemoglobin (11.7-17.4) g/dL ABG Carboxyhemoglobin (0.5-1.5) % POC ABG HHb (Measured) (0-5) % ABG Methemoglobin (0.0-3.0) % ABG O2 Capacity (16-24) mL/dl VBG pH 7.31 L (7.32-7.43) VBG pCO2 26.0 L (40-60) VBG HCO3 13.1 L (21-28) mmol/l VBG Total CO2 13.9 L (22-28) mmol.L VBG O2 Sat (Calc) 90.8 H (40-65) % VBG Base Excess -11.5 L (0.0-2.0) mmol/L VBG Potassium 5.1 (3.6-5.2) mmol/L Hgb O2 Saturation (95.0-98.0) % Glucose 170 H (65-105) mg/dl Lactate 3.9 H (0.7-2.1) mmol/L FiO2 21.0 % Sodium 138.0 (132-148) mmol/L Potassium (3.6-5.0) mmol/L Chloride 109.0 H (98-107) mmol/L Carbon Dioxide (21-33) mmol/L Anion Gap (10-20) BUN (7-21) mg/dL Creatinine (0.7-1.2) mg/dl Est GFR ( Amer) Est GFR (Non-Af Amer) POC Glucose (mg/dL) (65-110) mg/dL Random Glucose (70-110) mg/dL Calcium (8.4-10.5) mg/dL Phosphorus (2.5-4.5) mg/dL Magnesium (1.7-2.2) mg/dL Total Bilirubin (0.2-1.3) mg/dL AST (14-36) U/L ALT (7-56) U/L Alkaline Phosphatase (38-126) U/L Troponin I ng/mL Total Protein (5.8-8.3) g/dL Albumin (3.0-4.8) g/dL Globulin gm/dL Albumin/Globulin Ratio (1.1-1.8) Venous Blood Potassium 5.1 (3.6-5.2) mmol/L Hep Bs Antigen (NEGATIVE) Hep Bs Antibody Negative (NEGATIVE) Hep B Core IgM Ab (NEGATIVE) 06/12/18 06/12/18 06/12/18 Range/Units 09:03 07:15 07:15 WBC 31.6 H* (4.5-11.0) 10^3/ul RBC 4.19 (3.5-6.1) 10^6/uL Hgb 10.3 L (12.0-16.0) g/dL Hct 32.6 L (36.0-48.0) % MCV 77.8 L (80.0-105.0) fl MCH 24.6 L (25.0-35.0) pg MCHC 31.6 (31.0-37.0) g/dl RDW 19.1 H (11.5-14.5) % Plt Count 141 (120.0-450.0) 10^3/uL MPV 10.4 (7.0-11.0) fl Gran % 90.6 H (50.0-68.0) % Lymph % (Auto) 3.6 L (22.0-35.0) % [place] % (Auto) 4.5 (1.0-6.0) % Eos % (Auto) 1.2 L (1.5-5.0) % Baso % (Auto) 0.1 (0.0-3.0) % Gran # 28.65 H (1.4-6.5) Lymph # (Auto) 1.2 (1.2-3.4) [place] # (Auto) 1.4 H (0.1-0.6) Eos # (Auto) 0.4 (0.0-0.7) Baso # (Auto) 0.02 (0.0-2.0) K/mm3 Neutrophils % (Manual) 85 H (50.0-70.0) % Band Neutrophils % 3 H (0-2) % Lymphocytes % (Manual) 4 L (22.0-35.0) % Monocytes % (Manual) 8 H (1.0-6.0) % Nucleated RBC % 2 % pCO2 (35-45) mm/Hg pO2 42 (30-55) mm/Hg HCO3 (21-28) mmol/L ABG pH (7.35-7.45) ABG Total CO2 (22-28) mmol.L ABG O2 Saturation (95-98) % ABG O2 Content (15-23) ML/dl ABG Base Excess (-2.0-3.0) mmol/L ABG Hemoglobin (11.7-17.4) g/dL ABG Carboxyhemoglobin (0.5-1.5) % POC ABG HHb (Measured) (0-5) % ABG Methemoglobin (0.0-3.0) % ABG O2 Capacity (16-24) mL/dl VBG pH 7.34 (7.32-7.43) VBG pCO2 27.0 L (40-60) VBG HCO3 14.6 L (21-28) mmol/l VBG Total CO2 15.4 L (22-28) mmol.L VBG O2 Sat (Calc) 79.8 H (40-65) % VBG Base Excess -9.6 L (0.0-2.0) mmol/L VBG Potassium 5.1 (3.6-5.2) mmol/L Hgb O2 Saturation (95.0-98.0) % Glucose 143 H (65-105) mg/dl Lactate 2.7 H (0.7-2.1) mmol/L FiO2 21.0 % Sodium 138.0 138 (132-148) mmol/L Potassium 5.1 H (3.6-5.0) mmol/L Chloride 109.0 H 110 H (98-107) mmol/L Carbon Dioxide 15 L (21-33) mmol/L Anion Gap 19 (10-20) BUN 137 H* (7-21) mg/dL Creatinine 3.0 H (0.7-1.2) mg/dl Est GFR ( Amer) 19 Est GFR (Non-Af Amer) 16 POC Glucose (mg/dL) (65-110) mg/dL Random Glucose 117 H (70-110) mg/dL Calcium 8.2 L (8.4-10.5) mg/dL Phosphorus 7.6 H (2.5-4.5) mg/dL Magnesium 2.9 H (1.7-2.2) mg/dL Total Bilirubin (0.2-1.3) mg/dL AST (14-36) U/L ALT (7-56) U/L Alkaline Phosphatase (38-126) U/L Troponin I ng/mL Total Protein (5.8-8.3) g/dL Albumin (3.0-4.8) g/dL Globulin gm/dL Albumin/Globulin Ratio (1.1-1.8) Venous Blood Potassium 5.1 (3.6-5.2) mmol/L Hep Bs Antigen (NEGATIVE) Hep Bs Antibody (NEGATIVE) Hep B Core IgM Ab (NEGATIVE) 06/12/18 Range/Units 07:00 WBC (4.5-11.0) 10^3/ul RBC (3.5-6.1) 10^6/uL Hgb (12.0-16.0) g/dL Hct (36.0-48.0) % MCV (80.0-105.0) fl MCH (25.0-35.0) pg MCHC (31.0-37.0) g/dl RDW (11.5-14.5) % Plt Count (120.0-450.0) 10^3/uL MPV (7.0-11.0) fl Gran % (50.0-68.0) % Lymph % (Auto) (22.0-35.0) % [place] % (Auto) (1.0-6.0) % Eos % (Auto) (1.5-5.0) % Baso % (Auto) (0.0-3.0) % Gran # (1.4-6.5) Lymph # (Auto) (1.2-3.4) [place] # (Auto) (0.1-0.6) Eos # (Auto) (0.0-0.7) Baso # (Auto) (0.0-2.0) K/mm3 Neutrophils % (Manual) (50.0-70.0) % Band Neutrophils % (0-2) % Lymphocytes % (Manual) (22.0-35.0) % Monocytes % (Manual) (1.0-6.0) % Nucleated RBC % % pCO2 (35-45) mm/Hg pO2 (30-55) mm/Hg HCO3 (21-28) mmol/L ABG pH (7.35-7.45) ABG Total CO2 (22-28) mmol.L ABG O2 Saturation (95-98) % ABG O2 Content (15-23) ML/dl ABG Base Excess (-2.0-3.0) mmol/L ABG Hemoglobin (11.7-17.4) g/dL ABG Carboxyhemoglobin (0.5-1.5) % POC ABG HHb (Measured) (0-5) % ABG Methemoglobin (0.0-3.0) % ABG O2 Capacity (16-24) mL/dl VBG pH (7.32-7.43) VBG pCO2 (40-60) VBG HCO3 (21-28) mmol/l VBG Total CO2 (22-28) mmol.L VBG O2 Sat (Calc) (40-65) % VBG Base Excess (0.0-2.0) mmol/L VBG Potassium (3.6-5.2) mmol/L Hgb O2 Saturation (95.0-98.0) % Glucose (65-105) mg/dl Lactate (0.7-2.1) mmol/L FiO2 % Sodium (132-148) mmol/L Potassium (3.6-5.0) mmol/L Chloride (98-107) mmol/L Carbon Dioxide (21-33) mmol/L Anion Gap (10-20) BUN (7-21) mg/dL Creatinine (0.7-1.2) mg/dl Est GFR ( Amer) Est GFR (Non-Af Amer) POC Glucose (mg/dL) (65-110) mg/dL Random Glucose (70-110) mg/dL Calcium (8.4-10.5) mg/dL Phosphorus (2.5-4.5) mg/dL Magnesium (1.7-2.2) mg/dL Total Bilirubin (0.2-1.3) mg/dL AST (14-36) U/L ALT (7-56) U/L Alkaline Phosphatase (38-126) U/L Troponin I ng/mL Total Protein (5.8-8.3) g/dL Albumin (3.0-4.8) g/dL Globulin gm/dL Albumin/Globulin Ratio (1.1-1.8) Venous Blood Potassium (3.6-5.2) mmol/L Hep Bs Antigen Negative (NEGATIVE) Hep Bs Antibody (NEGATIVE) Hep B Core IgM Ab Negative (NEGATIVE) Laboratory Results - last 24 hr 06/12/18 06/12/18 06/12/18 07:00 07:15 07:15 WBC 31.6 H* RBC 4.19 Hgb 10.3 L Hct 32.6 L MCV 77.8 L MCH 24.6 L MCHC 31.6 RDW 19.1 H Plt Count 141 MPV 10.4 Gran % 90.6 H Lymph % (Auto) 3.6 L [place] % (Auto) 4.5 Eos % (Auto) 1.2 L Baso % (Auto) 0.1 Gran # 28.65 H Lymph # (Auto) 1.2 [place] # (Auto) 1.4 H Eos # (Auto) 0.4 Baso # (Auto) 0.02 Neutrophils % (Manual) 85 H Band Neutrophils % 3 H Lymphocytes % (Manual) 4 L Monocytes % (Manual) 8 H Nucleated RBC % 2 pCO2 pO2 HCO3 ABG pH ABG Total CO2 ABG O2 Saturation ABG O2 Content ABG Base Excess ABG Hemoglobin ABG Carboxyhemoglobin POC ABG HHb (Measured) ABG Methemoglobin ABG O2 Capacity VBG pH VBG pCO2 VBG HCO3 VBG Total CO2 VBG O2 Sat (Calc) VBG Base Excess VBG Potassium Hgb O2 Saturation Glucose Lactate FiO2 Sodium 138 Potassium 5.1 H Chloride 110 H Carbon Dioxide 15 L Anion Gap 19 BUN 137 H* Creatinine 3.0 H Est GFR ( Amer) 19 Est GFR (Non-Af Amer) 16 POC Glucose (mg/dL) Random Glucose 117 H Calcium 8.2 L Phosphorus 7.6 H Magnesium 2.9 H Total Bilirubin AST ALT Alkaline Phosphatase Troponin I Total Protein Albumin Globulin Albumin/Globulin Ratio Venous Blood Potassium Hep Bs Antigen Negative Hep Bs Antibody Hep B Core IgM Ab Negative 06/12/18 06/12/18 06/12/18 09:03 13:30 13:30 WBC RBC Hgb 10.7 L Hct 33.7 L MCV MCH MCHC RDW Plt Count MPV Gran % Lymph % (Auto) [place] % (Auto) Eos % (Auto) Baso % (Auto) Gran # Lymph # (Auto) [place] # (Auto) Eos # (Auto) Baso # (Auto) Neutrophils % (Manual) Band Neutrophils % Lymphocytes % (Manual) Monocytes % (Manual) Nucleated RBC % pCO2 pO2 42 HCO3 ABG pH ABG Total CO2 ABG O2 Saturation ABG O2 Content ABG Base Excess ABG Hemoglobin ABG Carboxyhemoglobin POC ABG HHb (Measured) ABG Methemoglobin ABG O2 Capacity VBG pH 7.34 VBG pCO2 27.0 L VBG HCO3 14.6 L VBG Total CO2 15.4 L VBG O2 Sat (Calc) 79.8 H VBG Base Excess -9.6 L VBG Potassium 5.1 Hgb O2 Saturation Glucose 143 H Lactate 2.7 H FiO2 21.0 Sodium 138.0 Potassium Chloride 109.0 H Carbon Dioxide Anion Gap BUN Creatinine Est GFR ( Amer) Est GFR (Non-Af Amer) POC Glucose (mg/dL) Random Glucose Calcium Phosphorus Magnesium Total Bilirubin AST ALT Alkaline Phosphatase Troponin I Total Protein Albumin Globulin Albumin/Globulin Ratio Venous Blood Potassium 5.1 Hep Bs Antigen Hep Bs Antibody Negative Hep B Core IgM Ab 06/12/18 06/12/18 06/12/18 13:30 20:02 20:30 WBC RBC Hgb Hct MCV MCH MCHC RDW Plt Count MPV Gran % Lymph % (Auto) [place] % (Auto) Eos % (Auto) Baso % (Auto) Gran # Lymph # (Auto) [place] # (Auto) Eos # (Auto) Baso # (Auto) Neutrophils % (Manual) Band Neutrophils % Lymphocytes % (Manual) Monocytes % (Manual) Nucleated RBC % pCO2 pO2 57 H HCO3 ABG pH ABG Total CO2 ABG O2 Saturation ABG O2 Content ABG Base Excess ABG Hemoglobin ABG Carboxyhemoglobin POC ABG HHb (Measured) ABG Methemoglobin ABG O2 Capacity VBG pH 7.31 L VBG pCO2 26.0 L VBG HCO3 13.1 L VBG Total CO2 13.9 L VBG O2 Sat (Calc) 90.8 H VBG Base Excess -11.5 L VBG Potassium 5.1 Hgb O2 Saturation Glucose 170 H Lactate 3.9 H FiO2 21.0 Sodium 138.0 Potassium Chloride 109.0 H Carbon Dioxide Anion Gap BUN Creatinine Est GFR ( Amer) Est GFR (Non-Af Amer) POC Glucose (mg/dL) 128 H Random Glucose Calcium Phosphorus Magnesium Total Bilirubin AST ALT Alkaline Phosphatase Troponin I 0.07 D Total Protein Albumin Globulin Albumin/Globulin Ratio Venous Blood Potassium 5.1 Hep Bs Antigen Hep Bs Antibody Hep B Core IgM Ab 06/13/18 06/13/18 06/13/18 06:25 06:25 06:26 WBC RBC Hgb Hct MCV MCH MCHC RDW Plt Count MPV Gran % Lymph % (Auto) [place] % (Auto) Eos % (Auto) Baso % (Auto) Gran # Lymph # (Auto) [place] # (Auto) Eos # (Auto) Baso # (Auto) Neutrophils % (Manual) Band Neutrophils % Lymphocytes % (Manual) Monocytes % (Manual) Nucleated RBC % pCO2 pO2 125 H HCO3 ABG pH ABG Total CO2 ABG O2 Saturation ABG O2 Content ABG Base Excess ABG Hemoglobin ABG Carboxyhemoglobin POC ABG HHb (Measured) ABG Methemoglobin ABG O2 Capacity VBG pH 7.38 VBG pCO2 22.0 L VBG HCO3 13.0 L VBG Total CO2 13.7 L VBG O2 Sat (Calc) 100.2 H VBG Base Excess -10.0 L VBG Potassium 5.6 H Hgb O2 Saturation Glucose 170 H Lactate 4.1 H* FiO2 21.0 Sodium 137.0 139 Potassium 5.5 H Chloride 109.0 H 110 H Carbon Dioxide 14 L Anion Gap 21 H BUN Creatinine Est GFR ( Amer) Est GFR (Non-Af Amer) POC Glucose (mg/dL) 151 H Random Glucose 167 H Calcium 7.8 L Phosphorus Magnesium Total Bilirubin 2.7 H AST 412 H D ALT 60 H Alkaline Phosphatase 847 H Troponin I 0.06 Total Protein 5.2 L Albumin 2.4 L Globulin 2.8 Albumin/Globulin Ratio 0.9 L Venous Blood Potassium 5.6 H Hep Bs Antigen Hep Bs Antibody Hep B Core IgM Ab 06/13/18 06:27 WBC RBC Hgb Hct MCV MCH MCHC RDW Plt Count MPV Gran % Lymph % (Auto) [place] % (Auto) Eos % (Auto) Baso % (Auto) Gran # Lymph # (Auto) [place] # (Auto) Eos # (Auto) Baso # (Auto) Neutrophils % (Manual) Band Neutrophils % Lymphocytes % (Manual) Monocytes % (Manual) Nucleated RBC % pCO2 21 L pO2 98.0 HCO3 12.4 L ABG pH 7.38 ABG Total CO2 13.0 L ABG O2 Saturation 99.1 H ABG O2 Content 14.1 L ABG Base Excess -11.0 L ABG Hemoglobin 10.4 L ABG Carboxyhemoglobin 2.0 H POC ABG HHb (Measured) 0.9 ABG Methemoglobin 1.9 ABG O2 Capacity 14.2 L VBG pH VBG pCO2 VBG HCO3 VBG Total CO2 VBG O2 Sat (Calc) VBG Base Excess VBG Potassium Hgb O2 Saturation 95.3 Glucose Lactate FiO2 40.0 Sodium Potassium Chloride Carbon Dioxide Anion Gap BUN Creatinine Est GFR ( Amer) Est GFR (Non-Af Amer) POC Glucose (mg/dL) Random Glucose Calcium Phosphorus Magnesium Total Bilirubin AST ALT Alkaline Phosphatase Troponin I Total Protein Albumin Globulin Albumin/Globulin Ratio Venous Blood Potassium Hep Bs Antigen Hep Bs Antibody Hep B Core IgM Ab Review of Systems - Review of Systems Systems not reviewed;Unavailable: Altered Mental Status Critical Care Progress Note - Extremities/Vascular Does the Patient have a Central Venous Catheter?: Yes Insertion Site: Internal Jugular Vein Does the Patient need a Central Venous Catheter?: Yes (emergent dialysis) Does the Patient have a Lane Catheter?: Yes Does the Patient need a Lane Catheter?: Yes Catheter Insertion Criteria: Need for accurate measurement of output in critically ill patient - Prophylaxis GI Prophylaxis GI: PPI - Prophylaxis DVT Prophylaxis DVT: Heparin SQ, SCDs - Nutrition Nutrition: Nutrition Category Date Time Status Pureed [Dysphagia/Modified Consistency Diet] [DIET] Diets 06/13/18 Breakfast Ordered Assessment/Plan - Assessment and Plan (Free Text) Assessment: 62F with hx of COPD, breast cancer with mets s/p chemo/radiation (08/2017) and left lumpectomy, CKD (baseline Cr 2.6), HTN, bipolar disorder, depression admitted to the ICU for the second time this admission - this time for shock ( unclear etiology). She was recently hospitalized this past May with acute on chronic renal failure, sob was tx inpatient and sent home. Did not do well at home, poor PO intake and incr SOB. Re-dmitted 06/06 directly to ICU for again sob and acute on chronic renal failure, severe sepsis. Stabilized with abx and IVF and transferred to floors. Returns to ICU over the weekend with hypotension , elec lac, sob, leukocytosis and worsening kidney function. Overnight Tmax 103 , repeat blood and urine cultures ordered, cooling blanket placed. During dialysis requiring norepinephrine, vasopressin and dopamine to maintain 80s systolic. Dopamine no longer needed after dialysis. Continues to require Levo 25 and Vaso 0.04. Plan: General: Encourage discussion about code status considering metastatic disease and grave prognosis Neuro: drowsy, lethargic difficult to arouse, orientation not able to be assessed Cardio: - hypotensive this morning and during dialysis - requiring levephedrine 25mcg and Vasopressin 0.04 for BP control, dopamine required during dialysis - Echo 06/12/18 shows normal EF. normal valve function, mild TR. - unable to obtain LE US yesterday due to p[atient acuity, will obtain today after dialysis - Hx of HTN. hold home irbesartan and bystolic in setting of low BP. - Monitor Pulm: -hx of COPD (not on home O2). as per son, patient uses ventolin inhaler at home. Never a smoker. -Verified with [facility] [place] [facility] pharmacy, patient was recently sent home on prednisone 20 mg PO BID (from recent [facility] [place] admission on 06/01/18 - patient was on IV steroids in hospital). -Xopenex prn, Prednisone 20 mg PO daily, will taper. -On 3L NC, saturating well, wean as tolerated - CT chest 06/06 shows moderate size right sided pleural effusion. Nodularity in both lung, indeterminate for malignancy, largest nodule is 1.3 cm (similar findings on chest CT on 05/2018). Mild diffuse subcutaneous edema in the lower abdomen and pelvis. Liver is heterogenous in appearance and appears to contain multiple mets. GI: - HHD - Protonix. Renal: - BUN/Cr 127/3.2 (baseline Cr 2.4) - Replace lytes, maintain euvolemia. - recieved dialysis today, removed 0.5 L, plan for dialysis again tomorrow - Monitor ID: unable to gain proper IV access for abx administration, currently recieving pressors via portacath, Midline ordered in the setting of a portacath repeat blood and urine cx taken this AM Tmax 103, + leukocytosis (likely steroid induced/exacerbated) WBC 38.6 CXR 06/11 no pleural effusion, stable cardiomegaly. CT chest 06/06 shows moderate size right sided pleural effusion. Nodularity in both lung, indeterminate for malignancy, largest nodule is 1.3 cm (similar findings on chest CT on 05/2018). UA neg nitrate, LE. many bacteria, 1-3 wbcs. Blood and urine cultures negative to date Port-a-cath placed 05/29/[address] Pino, flushing well. abx changed to Merrem and doxycycline per ID ID on board. Heme: - Hgb 10.2, platelets normal - repeat H&H this afternoon - continue to monitor DVT ppx: scds GI ppx: protonix Case seen and discussed with Dr. Khurram Cid, PGY1 - Date & Time Date: 06/13/18 Time: 07:40 <Tim Paulson - Last Filed: 06/13/18 13:49> CCU Objective - Vital Signs / Intake & Output Vital Signs (Last 4 hours): Vital Signs Temp Pulse BP 06/13/18 12:00 99.0 F 06/13/18 10:22 106 H 82/59 L Intake and Output (Last 8hrs): Intake & Output 06/12/18 06/13/18 06/13/18 22:59 06:59 14:59 Intake Total 783 775 5 Output Total 100 200 Balance 683 575 5 Intake: IV 543 775 5 Right Subclavian 303 560 Right Wrist 0 Oral 240 Output: Urine 100 [address] 2-way Urethral 100 200 Stool 0 0 Emesis 0 - Medications Active Medications: Active Medications Generic Name Dose Route Start Last Admin Trade Name Freq PRN Reason Stop Dose Admin Albumin Human 12.5 gm 06/13/18 12:45 Albumin Human 25% (12.5 Gm/50 Ml) IV Q8H TAZ Benzocaine/Menthol 1 rosey 06/10/18 18:45 Cepacol Sore Throat MT Q2H PRN Sore Throat Benztropine Mesylate 0.5 mg 06/09/18 22:00 06/12/18 22:02 Cogentin PO Not Given HS TAZ Benztropine Mesylate 0.5 mg 06/10/18 10:00 06/13/18 11:02 Cogentin PO Not Given BID TAZ Budesonide 0.5 mg 06/11/18 20:00 06/13/18 07:39 Pulmicort Respules IH 0.5 mg [id number] TAZ Administration Docusate Sodium 200 mg 06/10/18 12:00 06/13/18 11:02 Colace PO Not Given DAILY TAZ Heparin Sodium (Porcine) 5,000 units 06/08/18 22:00 06/13/18 11:09 Heparin SC 5,000 units Q12 TAZ Administration Protocol Hydrocortisone Sodium Succinate 100 mg 06/12/18 22:00 06/13/18 05:48 Solu-Cortef IVP 100 mg Q8 TAZ Administration Meropenem 500 mg/ Sodium 50 mls @ 100 mls/hr 06/12/18 22:00 06/13/18 11:10 Chloride IVPB 06/17/18 22:01 100 mls/hr Q12 TAZ Administration Protocol Doxycycline Hyclate 100 mg/ 100 mls @ 100 mls/hr 06/12/18 22:00 06/13/18 11: 11 Sodium Chloride IVPB 100 mls/hr Q12 TAZ Administration Protocol Norepinephrine Bitartrate 8 mg 508 mls @ 15.24 mls/hr 06/13/18 08:54 / Sodium Chloride IV .Q24H PRN TITRATE PER MD ORDER Protocol 4 MCG/MIN Vasopressin 20 units/ Sodium 101 mls @ 12.12 mls/hr 06/13/18 09:42 06/13/18 09:45 Chloride IV 12.12 mls/hr .Q8H20M TAZ Administration Protocol 0.04 U/MIN Dopamine HCl/Dextrose 400 mg in 250 mls @ 25.004 mls/hr 06/13/18 09:42 11:30 Dopamine 400mg/250ml D5w IV 0 mcg/kg/min .Q10H PRN 0 mls/hr TITRATE PER MD ORDER Titration Protocol 5 MCG/KG/MIN Levalbuterol HCl 1.25 mg 06/07/18 02:00 06/13/18 13:31 Xopenex IH 1.25 mg [id number] TAZ Administration Lidocaine HCl 15 ml 06/10/18 18:43 06/10/18 18:51 Lidocaine 2% Viscous PO 15 ml Q3H PRN Administration Sore Throat Lorazepam 1 mg 06/09/18 18:15 06/11/18 23:48 Ativan PO 1 mg TID PRN Administration anxiety/agitation Protocol Pantoprazole Sodium 20 mg 06/08/18 09:35 06/13/18 05:45 Protonix Ec Tab PO Not Given 0600 TAZ Polyethylene Glycol 17 gm 06/10/18 12:00 06/13/18 11:06 Miralax PO Not Given DAILY TAZ - Patient Studies Lab Studies: Lab Studies 06/13/18 06/13/18 06/13/18 Range/Units 10:57 06:27 06:26 WBC (4.5-11.0) 10^3/ul RBC (3.5-6.1) 10^6/uL Hgb (12.0-16.0) g/dL Hct (36.0-48.0) % MCV (80.0-105.0) fl MCH (25.0-35.0) pg MCHC (31.0-37.0) g/dl RDW (11.5-14.5) % Plt Count (120.0-450.0) 10^3/uL MPV (7.0-11.0) fl pCO2 21 L (35-45) mm/Hg pO2 37 98.0 (30-55) mm/Hg HCO3 12.4 L (21-28) mmol/L ABG pH 7.38 (7.35-7.45) ABG Total CO2 13.0 L (22-28) mmol.L ABG O2 Saturation 99.1 H (95-98) % ABG O2 Content 14.1 L (15-23) ML/dl ABG Base Excess -11.0 L (-2.0-3.0) mmol/L ABG Hemoglobin 10.4 L (11.7-17.4) g/dL ABG Carboxyhemoglobin 2.0 H (0.5-1.5) % POC ABG HHb (Measured) 0.9 (0-5) % ABG Methemoglobin 1.9 (0.0-3.0) % ABG O2 Capacity 14.2 L (16-24) mL/dl VBG pH 7.34 (7.32-7.43) VBG pCO2 36.0 L (40-60) VBG HCO3 19.4 L (21-28) mmol/l VBG Total CO2 20.5 L (22-28) mmol.L VBG O2 Sat (Calc) 71.5 H (40-65) % VBG Base Excess -5.7 L (0.0-2.0) mmol/L VBG Potassium 4.3 (3.6-5.2) mmol/L Hgb O2 Saturation 95.3 (95.0-98.0) % Sodium 136.0 (132-148) mmol/L Chloride 101.0 (98-107) mmol/L Glucose 163 H (65-105) mg/dl Lactate 4.7 H* (0.7-2.1) mmol/L FiO2 21.0 40.0 % Potassium (3.6-5.0) mmol/L Carbon Dioxide (21-33) mmol/L Anion Gap (10-20) BUN (7-21) mg/dL Creatinine (0.7-1.2) mg/dl Est GFR ( Amer) Est GFR (Non-Af Amer) POC Glucose (mg/dL) 151 H (65-110) mg/dL Random Glucose (70-110) mg/dL Calcium (8.4-10.5) mg/dL Phosphorus (2.5-4.5) mg/dL Magnesium (1.7-2.2) mg/dL Total Bilirubin (0.2-1.3) mg/dL AST (14-36) U/L ALT (7-56) U/L Alkaline Phosphatase (38-126) U/L Troponin I ng/mL Total Protein (5.8-8.3) g/dL Albumin (3.0-4.8) g/dL Globulin gm/dL Albumin/Globulin Ratio (1.1-1.8) Venous Blood Potassium 4.3 (3.6-5.2) mmol/L Hep Bs Antigen (NEGATIVE) Hep Bs Antibody (NEGATIVE) Hep B Core IgM Ab (NEGATIVE) 06/13/18 06/13/18 06/13/18 Range/Units 06:25 06:25 06:25 WBC 38.6 H* D (4.5-11.0) 10^3/ul RBC 4.18 (3.5-6.1) 10^6/uL Hgb 10.2 L (12.0-16.0) g/dL Hct 32.6 L (36.0-48.0) % MCV 78.0 L (80.0-105.0) fl MCH 24.4 L (25.0-35.0) pg MCHC 31.3 (31.0-37.0) g/dl RDW 19.6 H (11.5-14.5) % Plt Count 145 (120.0-450.0) 10^3/uL MPV 10.7 (7.0-11.0) fl pCO2 (35-45) mm/Hg pO2 125 H (30-55) mm/Hg HCO3 (21-28) mmol/L ABG pH (7.35-7.45) ABG Total CO2 (22-28) mmol.L ABG O2 Saturation (95-98) % ABG O2 Content (15-23) ML/dl ABG Base Excess (-2.0-3.0) mmol/L ABG Hemoglobin (11.7-17.4) g/dL ABG Carboxyhemoglobin (0.5-1.5) % POC ABG HHb (Measured) (0-5) % ABG Methemoglobin (0.0-3.0) % ABG O2 Capacity (16-24) mL/dl VBG pH 7.38 (7.32-7.43) VBG pCO2 22.0 L (40-60) VBG HCO3 13.0 L (21-28) mmol/l VBG Total CO2 13.7 L (22-28) mmol.L VBG O2 Sat (Calc) 100.2 H (40-65) % VBG Base Excess -10.0 L (0.0-2.0) mmol/L VBG Potassium 5.6 H (3.6-5.2) mmol/L Hgb O2 Saturation (95.0-98.0) % Sodium 139 137.0 (132-148) mmol/L Chloride 110 H 109.0 H (98-107) mmol/L Glucose 170 H (65-105) mg/dl Lactate 4.1 H* (0.7-2.1) mmol/L FiO2 21.0 % Potassium 5.5 H (3.6-5.0) mmol/L Carbon Dioxide 14 L (21-33) mmol/L Anion Gap 21 H (10-20) BUN 127 H* (7-21) mg/dL Creatinine 3.2 H (0.7-1.2) mg/dl Est GFR ( Amer) 18 Est GFR (Non-Af Amer) 15 POC Glucose (mg/dL) (65-110) mg/dL Random Glucose 167 H (70-110) mg/dL Calcium 7.8 L (8.4-10.5) mg/dL Phosphorus (2.5-4.5) mg/dL Magnesium (1.7-2.2) mg/dL Total Bilirubin 2.7 H (0.2-1.3) mg/dL AST 412 H D (14-36) U/L ALT 60 H (7-56) U/L Alkaline Phosphatase 847 H (38-126) U/L Troponin I 0.06 ng/mL Total Protein 5.2 L (5.8-8.3) g/dL Albumin 2.4 L (3.0-4.8) g/dL Globulin 2.8 gm/dL Albumin/Globulin Ratio 0.9 L (1.1-1.8) Venous Blood Potassium 5.6 H (3.6-5.2) mmol/L Hep Bs Antigen (NEGATIVE) Hep Bs Antibody (NEGATIVE) Hep B Core IgM Ab (NEGATIVE) 06/13/18 06/12/18 06/12/18 Range/Units 05:00 20:30 20:02 WBC (4.5-11.0) 10^3/ul RBC (3.5-6.1) 10^6/uL Hgb (12.0-16.0) g/dL Hct (36.0-48.0) % MCV (80.0-105.0) fl MCH (25.0-35.0) pg MCHC (31.0-37.0) g/dl RDW (11.5-14.5) % Plt Count (120.0-450.0) 10^3/uL MPV (7.0-11.0) fl pCO2 (35-45) mm/Hg pO2 (30-55) mm/Hg HCO3 (21-28) mmol/L ABG pH (7.35-7.45) ABG Total CO2 (22-28) mmol.L ABG O2 Saturation (95-98) % ABG O2 Content (15-23) ML/dl ABG Base Excess (-2.0-3.0) mmol/L ABG Hemoglobin (11.7-17.4) g/dL ABG Carboxyhemoglobin (0.5-1.5) % POC ABG HHb (Measured) (0-5) % ABG Methemoglobin (0.0-3.0) % ABG O2 Capacity (16-24) mL/dl VBG pH (7.32-7.43) VBG pCO2 (40-60) VBG HCO3 (21-28) mmol/l VBG Total CO2 (22-28) mmol.L VBG O2 Sat (Calc) (40-65) % VBG Base Excess (0.0-2.0) mmol/L VBG Potassium (3.6-5.2) mmol/L Hgb O2 Saturation (95.0-98.0) % Sodium (132-148) mmol/L Chloride (98-107) mmol/L Glucose (65-105) mg/dl Lactate (0.7-2.1) mmol/L FiO2 % Potassium (3.6-5.0) mmol/L Carbon Dioxide (21-33) mmol/L Anion Gap (10-20) BUN (7-21) mg/dL Creatinine (0.7-1.2) mg/dl Est GFR ( Amer) Est GFR (Non-Af Amer) POC Glucose (mg/dL) 128 H (65-110) mg/dL Random Glucose (70-110) mg/dL Calcium (8.4-10.5) mg/dL Phosphorus 7.8 H (2.5-4.5) mg/dL Magnesium 2.8 H (1.7-2.2) mg/dL Total Bilirubin (0.2-1.3) mg/dL AST (14-36) U/L ALT (7-56) U/L Alkaline Phosphatase (38-126) U/L Troponin I 0.07 D ng/mL Total Protein (5.8-8.3) g/dL Albumin (3.0-4.8) g/dL Globulin gm/dL Albumin/Globulin Ratio (1.1-1.8) Venous Blood Potassium (3.6-5.2) mmol/L Hep Bs Antigen (NEGATIVE) Hep Bs Antibody (NEGATIVE) Hep B Core IgM Ab (NEGATIVE) 06/12/18 06/12/18 06/12/18 Range/Units 13:30 13:30 07:00 WBC (4.5-11.0) 10^3/ul RBC (3.5-6.1) 10^6/uL Hgb 10.7 L (12.0-16.0) g/dL Hct 33.7 L (36.0-48.0) % MCV (80.0-105.0) fl MCH (25.0-35.0) pg MCHC (31.0-37.0) g/dl RDW (11.5-14.5) % Plt Count (120.0-450.0) 10^3/uL MPV (7.0-11.0) fl pCO2 (35-45) mm/Hg pO2 (30-55) mm/Hg HCO3 (21-28) mmol/L ABG pH (7.35-7.45) ABG Total CO2 (22-28) mmol.L ABG O2 Saturation (95-98) % ABG O2 Content (15-23) ML/dl ABG Base Excess (-2.0-3.0) mmol/L ABG Hemoglobin (11.7-17.4) g/dL ABG Carboxyhemoglobin (0.5-1.5) % POC ABG HHb (Measured) (0-5) % ABG Methemoglobin (0.0-3.0) % ABG O2 Capacity (16-24) mL/dl VBG pH (7.32-7.43) VBG pCO2 (40-60) VBG HCO3 (21-28) mmol/l VBG Total CO2 (22-28) mmol.L VBG O2 Sat (Calc) (40-65) % VBG Base Excess (0.0-2.0) mmol/L VBG Potassium (3.6-5.2) mmol/L Hgb O2 Saturation (95.0-98.0) % Sodium (132-148) mmol/L Chloride (98-107) mmol/L Glucose (65-105) mg/dl Lactate (0.7-2.1) mmol/L FiO2 % Potassium (3.6-5.0) mmol/L Carbon Dioxide (21-33) mmol/L Anion Gap (10-20) BUN (7-21) mg/dL Creatinine (0.7-1.2) mg/dl Est GFR ( Amer) Est GFR (Non-Af Amer) POC Glucose (mg/dL) (65-110) mg/dL Random Glucose (70-110) mg/dL Calcium (8.4-10.5) mg/dL Phosphorus (2.5-4.5) mg/dL Magnesium (1.7-2.2) mg/dL Total Bilirubin (0.2-1.3) mg/dL AST (14-36) U/L ALT (7-56) U/L Alkaline Phosphatase (38-126) U/L Troponin I ng/mL Total Protein (5.8-8.3) g/dL Albumin (3.0-4.8) g/dL Globulin gm/dL Albumin/Globulin Ratio (1.1-1.8) Venous Blood Potassium (3.6-5.2) mmol/L Hep Bs Antigen Negative (NEGATIVE) Hep Bs Antibody Negative (NEGATIVE) Hep B Core IgM Ab Negative (NEGATIVE) Laboratory Results - last 24 hr 06/12/18 06/12/18 06/12/18 07:00 13:30 13:30 WBC RBC Hgb 10.7 L Hct 33.7 L MCV MCH MCHC RDW Plt Count MPV pCO2 pO2 HCO3 ABG pH ABG Total CO2 ABG O2 Saturation ABG O2 Content ABG Base Excess ABG Hemoglobin ABG Carboxyhemoglobin POC ABG HHb (Measured) ABG Methemoglobin ABG O2 Capacity VBG pH VBG pCO2 VBG HCO3 VBG Total CO2 VBG O2 Sat (Calc) VBG Base Excess VBG Potassium Hgb O2 Saturation Sodium Chloride Glucose Lactate FiO2 Potassium Carbon Dioxide Anion Gap BUN Creatinine Est GFR ( Amer) Est GFR (Non-Af Amer) POC Glucose (mg/dL) Random Glucose Calcium Phosphorus Magnesium Total Bilirubin AST ALT Alkaline Phosphatase Troponin I Total Protein Albumin Globulin Albumin/Globulin Ratio Venous Blood Potassium Hep Bs Antigen Negative Hep Bs Antibody Negative Hep B Core IgM Ab Negative 06/12/18 06/12/18 06/13/18 20:02 20:30 05:00 WBC RBC Hgb Hct MCV MCH MCHC RDW Plt Count MPV pCO2 pO2 HCO3 ABG pH ABG Total CO2 ABG O2 Saturation ABG O2 Content ABG Base Excess ABG Hemoglobin ABG Carboxyhemoglobin POC ABG HHb (Measured) ABG Methemoglobin ABG O2 Capacity VBG pH VBG pCO2 VBG HCO3 VBG Total CO2 VBG O2 Sat (Calc) VBG Base Excess VBG Potassium Hgb O2 Saturation Sodium Chloride Glucose Lactate FiO2 Potassium Carbon Dioxide Anion Gap BUN Creatinine Est GFR ( Amer) Est GFR (Non-Af Amer) POC Glucose (mg/dL) 128 H Random Glucose Calcium Phosphorus 7.8 H Magnesium 2.8 H Total Bilirubin AST ALT Alkaline Phosphatase Troponin I 0.07 D Total Protein Albumin Globulin Albumin/Globulin Ratio Venous Blood Potassium Hep Bs Antigen Hep Bs Antibody Hep B Core IgM Ab 06/13/18 06/13/18 06/13/18 06:25 06:25 06:25 WBC 38.6 H* D RBC 4.18 Hgb 10.2 L Hct 32.6 L MCV 78.0 L MCH 24.4 L MCHC 31.3 RDW 19.6 H Plt Count 145 MPV 10.7 pCO2 pO2 125 H HCO3 ABG pH ABG Total CO2 ABG O2 Saturation ABG O2 Content ABG Base Excess ABG Hemoglobin ABG Carboxyhemoglobin POC ABG HHb (Measured) ABG Methemoglobin ABG O2 Capacity VBG pH 7.38 VBG pCO2 22.0 L VBG HCO3 13.0 L VBG Total CO2 13.7 L VBG O2 Sat (Calc) 100.2 H VBG Base Excess -10.0 L VBG Potassium 5.6 H Hgb O2 Saturation Sodium 137.0 139 Chloride 109.0 H 110 H Glucose 170 H Lactate 4.1 H* FiO2 21.0 Potassium 5.5 H Carbon Dioxide 14 L Anion Gap 21 H BUN 127 H* Creatinine 3.2 H Est GFR ( Amer) 18 Est GFR (Non-Af Amer) 15 POC Glucose (mg/dL) Random Glucose 167 H Calcium 7.8 L Phosphorus Magnesium Total Bilirubin 2.7 H AST 412 H D ALT 60 H Alkaline Phosphatase 847 H Troponin I 0.06 Total Protein 5.2 L Albumin 2.4 L Globulin 2.8 Albumin/Globulin Ratio 0.9 L Venous Blood Potassium 5.6 H Hep Bs Antigen Hep Bs Antibody Hep B Core IgM Ab 06/13/18 06/13/18 06/13/18 06:26 06:27 10:57 WBC RBC Hgb Hct MCV MCH MCHC RDW Plt Count MPV pCO2 21 L pO2 98.0 37 HCO3 12.4 L ABG pH 7.38 ABG Total CO2 13.0 L ABG O2 Saturation 99.1 H ABG O2 Content 14.1 L ABG Base Excess -11.0 L ABG Hemoglobin 10.4 L ABG Carboxyhemoglobin 2.0 H POC ABG HHb (Measured) 0.9 ABG Methemoglobin 1.9 ABG O2 Capacity 14.2 L VBG pH 7.34 VBG pCO2 36.0 L VBG HCO3 19.4 L VBG Total CO2 20.5 L VBG O2 Sat (Calc) 71.5 H VBG Base Excess -5.7 L VBG Potassium 4.3 Hgb O2 Saturation 95.3 Sodium 136.0 Chloride 101.0 Glucose 163 H Lactate 4.7 H* FiO2 40.0 21.0 Potassium Carbon Dioxide Anion Gap BUN Creatinine Est GFR ( Amer) Est GFR (Non-Af Amer) POC Glucose (mg/dL) 151 H Random Glucose Calcium Phosphorus Magnesium Total Bilirubin AST ALT Alkaline Phosphatase Troponin I Total Protein Albumin Globulin Albumin/Globulin Ratio Venous Blood Potassium 4.3 Hep Bs Antigen Hep Bs Antibody Hep B Core IgM Ab Critical Care Progress Note - Nutrition Nutrition: Nutrition Category Date Time Status Pureed [Dysphagia/Modified Consistency Diet] [DIET] Diets 06/13/18 Breakfast Ordered Addendum Addendum: 06/13/18 13:49 ICU Attending Addendum: Patient seen and examined. Case reviewed on round with housestaff. Agree with resident note above with the following additions/exceptions: 62F with hx of COPD, breast cancer with mets s/p chemo/radiation (08/2017) and left lumpectomy, CKD (baseline Cr 2.6), HTN, bipolar disorder, depression admitted to the ICU for the second time this admission - this time for shock ( unclear etio). She was recently hospitalized this past May with acute on chronic renal failure, sob was tx inpatient and sent home. Did not do well at home, poor PO intake and incr SOB. Re-dmitted 06/06 directly to ICU for again sob and acute on chronic renal failure, severe sepsis. Stabilized with abx and IVF and transferrred to floors. Returns to ICU over the weekend with hypotension, elec lac, sob, leukocytosis and worsening kidney function. Shock - still unclear etiology; I suspect she may be third spacing and intravascularly deplated which is why she became hypotensive with HD. In addition, echo does not show LV dysfunction. Low suspicion for PE given no RV strain on echo. IVC collapsible further supporting intravasc depletion. No signs of infection at this time however cont empiric broad abx while awaiting final cultures. At this point will cont levophed with vaso Add phenylephrine if needed trend lac Unclear steroid regimen. Ultimately would like to stop steroids but if she was on them for >2 weeks then would require a taper. Nephro on board, plan for HD again today TNI slightly elevated - possibly from period of low BP during HD WBC 31 -> 38 unclear as to why, possibly steroid induced For her COPD, cont duonebs, keep 02 sat 90-92% Rest of care as noted above. Tim Paulson MD [employer] Get[facility] Critical care time : 4o mins
[2018-06-13] MEDS: Budesonide 0.5 mg/2 ml Inhal Susp UD IH SCH ×2 (07:39→19:40)
[2018-06-13 07:42] LABS: WHITE BLOOD COUNT 38.6 10^3/ul (4.5-11.0)
--- NOTE | 2018-06-13 08:53 | RAD ---
Date of service: 06/13/2018 HISTORY: CHF COMPARISON: 06/11/2018. FINDINGS: LUNGS: Right-sided central venous catheter terminates at the cavoatrial junction. There are persistent low lung volumes. There is interval improved aeration in the lungs. There is discoid atelectasis in the left mid lung. PLEURA: No significant pleural effusion identified, no pneumothorax apparent. CARDIOVASCULAR: The cardio mediastinal silhouette is stable with persistent mild cardio OSSEOUS STRUCTURES: No significant abnormalities. VISUALIZED UPPER ABDOMEN: Normal. OTHER FINDINGS: None. IMPRESSION: Interval improved aeration in the lungs. Low lung volumes may be related to poor inspiratory effort. No acute findings.
[2018-06-13] MEDS: Norepinephrine 8 MG in Sodium Chloride 0.9% 500 ML IV PRN (09:00)
[2018-06-13] MEDS ORDERED: DOPamine 400mg/250ml D5W 400 MG/250 ML BAG IV PRN (09:42)
[2018-06-13] MEDS ORDERED: Albumin Human 25% (12.5 gm/50 ml) IV ONE (10:44)
[2018-06-13 11:01] LABS: VENOUS BLOOD GAS BASE EXCESS -5.7 mmol/L (0.0-2.0); VENOUS BLOOD GAS PO2 37 mm/Hg (30-55); VENOUS BLOOD PH 7.34 (7.32-7.43)
[2018-06-13] MEDS: POLYETHYLENE GLYCOL 3350 17 GM/Dose PACKET PO SCH (11:06)
[2018-06-13] MEDS: Meropenem 500 MG in Sodium Chloride 0.9% 50 ML IVPB SCH ×2 (11:10→21:51)
[2018-06-13] MEDS: Albumin Human 25% (12.5 gm/50 ml) IV SCH ×2 (14:17→21:51)
--- NOTE | 2018-06-13 14:25 | PN ---
DATE: 06/13/2018 SUBJECTIVE: The patient is a 62 years old, remained in ICU, minimally responsive, short of breath, getting dialysis, got 1-1/2 hour yesterday and will be receiving 2-1/2 hours today. PHYSICAL EXAMINATION: VITAL SIGNS: She spiked fever of 102, pulse 108, respiration 28, blood pressure 94/82. LUNGS: Bilateral upper respiratory soft crackles. HEART: S1, S2 audible. Tachycardic. ABDOMEN: Soft, obese, nontender. No rebound. NEUROLOGICAL: She is minimally responsive. EXTREMITIES: Bilateral legs, no edema. LABORATORY EXAMINATION: WBC 38.6, hemoglobin 10.2, hematocrit 32.6, platelets 145. Chemistry: Sodium 139, potassium 5.5, chloride 110, CO2 of 14, BUN 127, creatinine 3.2, blood sugar 151, total bilirubin 2.7. AST 412, ALT 60, alkaline phosphatase is 847. ASSESSMENT: 1. Leukocytosis, etiology still unclear. 2. Acute renal failure, on dialysis today. 3. Hypoalbuminemia. 4. Metastatic breast cancer. 5. Lethargy and change in mental status that is multifactorial. 6. History of bipolar disorder. 7. Morbid obesity. 8. Abnormal LFTs, probably secondary to metastasis. PLAN: We will continue current management. Currently, the patient is on pressors. She is on doxycycline. She is on dopamine and Levophed. She is getting meropenem. She is on nebulizer treatment. We will give her 6 doses of albumin and then we will reevaluate and if she is holding her blood pressure, we will discontinue in a.m. Jessica Flores MD
[2018-06-13 15:26] LABS: VENOUS BLOOD GAS BASE EXCESS -9.3 mmol/L (0.0-2.0); VENOUS BLOOD GAS PO2 47 mm/Hg (30-55); VENOUS BLOOD PH 7.32 (7.32-7.43)
[2018-06-13 15:42] LABS: ALB/GLOB RATIO 0.9 (1.1-1.8); ALBUMIN 2.6 g/dL (3.0-4.8); CALCIUM 7.9 mg/dL (8.4-10.5)
--- NOTE | 2018-06-13 17:59 | PN ---
DATE: 06/13/2018 SUBJECTIVE: The patient is in bed, in no acute distress, was seen earlier in [facility], bed 2 with low-grade fevers. PHYSICAL EXAMINATION: VITAL SIGNS: Temperature of 102.2, blood pressure is 90/80, respiratory rate of 20, heart rate of 108. HEENT: Unremarkable. NECK: Supple. LUNGS: Have decreased breath sounds. HEART: Normal S1, S2. ABDOMEN: Soft, nontender. LABORATORY DATA: Reveals a white count of 38,600, hemoglobin of 10, platelets of 145. Creatinine is 3.2. LFTs are elevated. Procalcitonin is 6.36. Urinalysis is noted. Toxicology is noted. Serology is reviewed. Vanco random level of 14. Microbiology reveals the blood cultures, no growth and urine cultures, no growth. The patient is on IV doxycycline, meropenem, and intermittent vancomycin. Dr. Flores's note from today is reviewed. The patient had a CAT scan of the abdomen and pelvis and chest on 06/06/2018. The patient with multiple pulmonary nodules. ASSESSMENT AND PLAN: This is a 62-year-old female with sepsis with bilateral healthcare-associated pneumonia, morbid obesity with body mass index of 47, hypertension, chronic obstructive lung disease, breast cancer with pulmonary metastases, and leukocytosis, probably from metastatic cancer. Dr. Mariano's note is reviewed. Overall prognosis is quite poor. Dr. Mariano states that the patient has stage IV breast cancer and metastatic lesions in the lung and liver, liver metastases with tuberculosis, leukocytosis of this magnitude and most likely also responsible for the fevers, although this temperature of 102 this morning is new. We will follow closely with you. Overall prognosis is quite poor for this patient with end-stage breast cancer. Blake Dias MD
--- NOTE | 2018-06-13 18:11 | PCM.PROC ---
<Jose RobertoMariel - Last Filed: 06/13/18 18:07> Procedures Attestation:: I certify that I have explained the specified Operation(s) or Procedure(s), risks, benefits and reasonable alternatives to the Patient and/or other person responsible. The opportunity was given to ask questions and all questions answered - Central Line Placement Left Femoral Triple Lumen Catheter Aseptic technique was employed throughout the procedure: Hand Hygiene done prior to procedure, Full sterile barriers (mask, hair cover, sterile gown, sterile gloves), Full body sterile drape, Chloraprep Antiseptic: 2 minute prep for Femoral CVP Time Out Performed: Yes Pt. Placed on Pulse Ox Monitor: Yes Central Line Prep: Chlorhexidine-Alcohol Combination Local Anesthesia Used: Lidocaine 1% Amount of Anesthesia Used (mls): 10 Ultrasound Used for Placement: Yes Central Line Lumen Inserted: triple Central Line Length: 16 cm Post Procedure: Sutured in Place, Good Blood Return, All Ports Aspirated, Flushed, Capped, Sterile Dressing Applied Secured by: Suture Post procedure dressing: Gauze, Chlorhexidine disc (Biopatch) Post Procedure X-Ray: No Patient Tolerated Procedure: Well Immediate Complications: None <Tim Paulson - Last Filed: 06/14/18 09:36> Addendum Addendum: 06/13/18 19:35 ICU Attending: Agree with resident note above I was present for the entire procedure No complications. Tim Paulson MD
--- NOTE | 2018-06-13 18:31 | US ---
HISTORY: Leg pain and swelling. Evaluate for DVT PHYSICIAN(S): Dave Pino MD. TECHNIQUE: Duplex sonography and color-flow Doppler with graded compression were used to evaluate the deep venous systems of both lower extremities. The exam is extremely limited due to body habitus, edema, and portable technique the lower femoral veins and tibial veins are not adequately seen. FINDINGS: The visualized deep venous systems of both lower extremities are sonographically normal and compressible. Normal wave forms and augmentation are seen. There is no sonographic evidence for deep venous thrombosis in the visualized segments of both lower extremities. IMPRESSION: No sonographic evidence for deep venous thrombosis in the visualized segments of both lower extremities. Very limited study
[2018-06-13 18:53] LABS: URINE BILIRUBIN SMALL (NEGATIVE); URINE BLOOD LARGE (NEGATIVE); URINE GLUCOSE (UA) NEGATIVE (NEGATIVE); URINE LEUKOCYTE ESTERASE MODERATE Leu/uL (NEGATIVE); URINE PROTEIN 100 mg/dL (<30 mg/dL); URINE UROBILINOGEN 0.2 E.U./dL (<1 E.U./dL)
[2018-06-13 18:54] LABS: URINE APPEARANCE SLIGHT-CLOUDY (CLEAR); URINE COLOR DARK YELLOW (YELLOW)
[2018-06-13 19:00] LABS: URINE BACTERIA SMALL (NEG)
--- NOTE | 2018-06-13 21:07 | PN ---
DATE: 06/13/2018 SUBJECTIVE: The patient was followed up today. No changes with the patient presentation. The patient is still in CCU. The patient was not able to participate in interview. The patient just stares at this rewriter and not talking. The patient gave permission to talk to her son. As per son, the patient was not able to hold dialysis yesterday and the patient is scheduled for dialysis today. Collaterals were obtained from the nursing staff. The patient had A-line placed. There is no agitation nor aggression. No psychotic behavior. VITAL SIGNS: Reviewed. The patient had fever 102 today, pulses was 108 and 106, blood pressure is 82/59, respiration 28, oxygen saturation is 98. MEDICATIONS: Reviewed. This rewriter will hold Cogentin as well as Zyprexa only 2.5 mg daily as needed for agitation or psychotic symptoms. The patient is on multiple medications. The patient is on dopamine, Colace, Pulmicort, heparin, hydrocortisone, Xopenex, Ativan three times a day as needed, Protonix, MiraLax, vasopressin. LABORATORY DATA: Reviewed. WBC cells today 38.6, hemoglobin and hematocrit 10.2 and 32.2. Coagulation reviewed. Chemistry reviewed. Potassium is still elevated 5.1. AST and ALT are elevated. MENTAL STATUS EXAMINATION: The patient was not able to participate in interview. Just stares at this rewriter. She was not able to talk. IMPRESSION: Most likely, the patient has delirium stage. The patient also has history of mental illness, most likely schizophrenia spectrum. At present moment, the patient is not doing well, multiple medical issues. The patient is in ICU. The patient also is tachycardiac, tachypneic. The patient also has history of breast cancer, chemoradiation, has chronic renal failure and multiple multiple medical issues. Please see brass wind instruments tube bender note for more detailed information. PLAN: Continue current management as of now. Patient's medical issues are overweight of psychiatric issues. This rewriter would recommend to continue current management. Zyprexa is minimal dose daily 2.5mg PRN. When the patient will be improving from the medical standpoint, please consider to reconsult as needed. If pt has acute change in mental status please reconsult. Thank you very much for letting me participate in the care of your patient. Should you have any questions give me a call back. Liseth Kohli MD [facility] # [phone] [place]
--- NOTE | 2018-06-13 23:07 | PN ---
DATE: 06/13/2018 PULMONARY AND CRITICAL CARE PROGRESS NOTE REFERRING PHYSICIAN: Jessica Flores MD. SUBJECTIVE: Lying in the bed. Attempted dialysis today, only able to take 1/2 liter or so because of hypotension. She is on high dose of pressors. Arousable, on nasal cannula. No cough. No sputum production. No chest pain. No abdominal pain. Has a leg swelling. PHYSICAL EXAMINATION: GENERAL: Lethargic, sleepy, arousable. VITAL SIGNS: Afebrile, heart rate is 104, respiratory rate is 22, blood pressure 90/61, pulse ox 98% on nasal cannula. HEENT: Moist mucous membrane. Crowded airway. NECK: Supple. No JVD. Has a short thick neck. LUNGS: Have a poor effort, but fair airflow. HEART: S1 and S2, tachycardic. ABDOMEN: Soft, nontender, nondistended. EXTREMITIES: Have anasarca. NEUROLOGICAL: Lethargic, arousable. MEDICATIONS: She is on albumin 25% 12.5 g every 8 hours, also Ativan 1 mg three times a day p.r.n., Cepacol lozenges every 2 hours p.r.n., Colace 200 mg daily, doxycycline 100 mg twice a day, heparin 5000 units subcu every 12 hours, lidocaine viscous to affected area three times a day, meropenem 500 mg every 12 hours, MiraLax 17 g daily. She is on Levophed, also on Protonix 20 mg daily, Pulmicort inhaled twice a day, Solu-Cortef 100 mg every 8 hours, vasopressin has been added, also Xopenex inhale every 6 hours, and Zyprexa 2.5 mg daily. LABORATORY DATA: Shows hemoglobin 10.2, hematocrit 32.6, WBC 38,000, platelet is 145. Blood gases shows pH 7.38, pCO2 of 21, pO2 is 98 that is on nasal cannula. Sodium 139, potassium 5.1, chloride 105, bicarbonate 16, BUN 93, creatinine 2.8, glucose is 162, calcium 7.9. AST 660, ALT 91, alk phos is 931. Albumin is 2.6. Urinalysis shows wbc' 10-50, rbc's 2-5. Microbiology: Blood culture, urine culture, and nasal culture all unremarkable. Chest x-ray done this morning shows interval improved aeration in the lung, low-volume, poor expiratory effort, otherwise unremarkable. IMPRESSION AND PLAN: Metastatic breast cancer to the lung and liver, bipolar disorder, renal failure, anasarca, sepsis with hypotension, may have a sleep apnea syndrome, refusing to use CPAP/BiPAP. IV access being obtained by er physician. Continue antibiotics. Continue pressors. Continue Solu-Cortef, Sleep apnea precaution. Nephrology followup. Overall poor prognosis. Spoke to the patient's son, all the questions answered. Follow up ABG, chest x-ray, CBC, and CMP in the morning. Critical care time more than 35 minutes. Thank you we will follow with you Dee German MD
--- NOTE | 2018-06-13 23:57 | PN ---
DATE: 06/13/2018 SUBJECTIVE: The patient is seen in the ICU. She is lethargic, groggy, barely arousable. She is just finishing dialysis. She remains on three pressors. She is on Levophed, vasopressin, she was on dopamine while she was getting dialysis. Pressure remains low. No ultrafiltration was performed. She remains altered. Her mental status is not any better. She had a fever spike, her temperature arose to 102.2 at 08:00 a.m. today. Blood pressure is 82/59. Intake and output has been 1600/300. PHYSICAL EXAMINATION: GENERAL: Morbidly obese elderly lady lying in bed in the ICU, minimally responsive. VITAL SIGNS: Blood pressure 82/59, heart rate 106, respiratory rate 28, temperature 102.2. HEENT: Normocephalic, atraumatic, positive pallor, positive icterus. NECK: Supple, no JVD. LUNGS: Bilateral equal air entry, bilateral equal expansion, no rales appreciated anteriorly. CARDIAC: S1 and S2, regular rate and rhythm, no murmur, no rub. ABDOMEN: Obese, distended, soft, nontender, bowel sounds present. EXTREMITIES: 2+ pitting edema of the lower extremities. INTAKE AND OUTPUT: 1600/300. LABORATORY DATA: WBC 38.6, hemoglobin 10.2, hematocrit 33, platelets 145. Sodium 139, potassium 5.1, chloride 105, CO2 16, BUN 23, creatinine 2.8. Glucose 162, calcium 7.9, total bili 3.3, AST is 660, ALT is 91, albumin 2.6, corrected calcium is 8.8. Urinalysis, dark yellow, slightly cloudy, pH 5, specific gravity greater than 1.030, protein 100, ketones trace, blood large, leukocyte esterase moderate, wbc's 10-15. Hepatitis profile negative. Blood gas pH 7.38, pCO2 of 21, pO2 98. Chest x-ray showing elevated diaphragm, poor inspiratory effort. No acute findings. CURRENT MEDICATIONS: Albumin 12.5 g initiated, Ativan, Colace, dopamine given during dialysis, doxycycline 100 every 12, meropenem 500 every 12, MiraLax, Levophed 15 mcg per minute, Protonix, Pulmicort, Solu-Cortef, vasopressin 12.2 mL per hour, Xopenex, Zyprexa. ASSESSMENT AND PLAN: 1. Acute kidney injury, oligoanuric. 2. Sepsis, hypotension, leukocytosis, acute renal failure, metabolic acidosis. 3. Hyperkalemia. 4. Altered mental status. 5. Severe anemia. 6. Stage IV breast cancer with lung mets and liver mets. 7. Profound hypotension. PLAN: 1. The patient received dialysis today. No ultrafiltration was performed. The patient was hypotensive during dialysis also. 2. Panculture in light of temperature spike and rising WBC count. 3. Continue empiric antibiotics. 4. Dose all antibiotics and medications for creatinine clearance less than 10. 5. Continue ICU management. 6. The patient remains critically ill, prognosis is guarded. 7. Case discussed with ICU staff at length, case discussed with dialysis staff, case discussed with family members at bedside. Loreta Giron MD
[2018-06-14] MEDS: Levalbuterol 1.25 MG/3 ML Inhal Soln UD IH SCH ×4 (02:25→20:40)
--- NOTE | 2018-06-14 04:07 | PN ---
DATE: 06/13/2018
[2018-06-14] MEDS: Norepinephrine 8 MG in Sodium Chloride 0.9% 500 ML IV PRN ×2 (05:09→14:00)
[2018-06-14] MEDS: Pantoprazole 20 mg EC Tab PO SCH (05:09)
[2018-06-14] MEDS: Albumin Human 25% (12.5 gm/50 ml) IV SCH ×3 (05:10→21:18)
[2018-06-14 06:28] LABS: ARTERIAL BLOOD GAS HCO3 14.5 mmol/L (21-28); ARTERIAL BLOOD GAS O2 CAPACITY 13.8 mL/dl (16-24); ARTERIAL BLOOD GAS O2 CONTENT 13.7 ML/dl (15-23); ARTERIAL BLOOD GAS O2 SAT 99.5 % (95-98); ARTERIAL BLOOD GAS PCO2 25 mm/Hg (35-45); ARTERIAL BLOOD GAS PH 7.37 (7.35-7.45); ARTERIAL BLOOD GAS TCO2 15.3 mmol.L (22-28)
[2018-06-14 06:53] LABS: ALB/GLOB RATIO 1.1 (1.1-1.8); ALBUMIN 2.8 g/dL (3.0-4.8); CALCIUM 7.8 mg/dL (8.4-10.5)
[2018-06-14 07:00] LABS: HEMOGLOBIN 9.2 g/dL (12.0-16.0); MEAN CELL VOLUME 77.4 fl (80.0-105.0); MEAN CORPUSCULAR HEMOGLOBIN 24.5 pg (25.0-35.0); MEAN CORPUSCULAR HGB CONC 31.6 g/dl (31.0-37.0); PLATELET COUNT 107 10^3/uL (120.0-450.0); RBC 3.76 10^6/uL (3.5-6.1); RED CELL DISTRIBUTION WIDTH 19.7 % (11.5-14.5)
[2018-06-14 07:02] LABS: WHITE BLOOD COUNT 29.7 10^3/ul (4.5-11.0)
[2018-06-14] MEDS: Budesonide 0.5 mg/2 ml Inhal Susp UD IH SCH ×2 (07:16→20:40)
--- NOTE | 2018-06-14 10:38 | RAD ---
Date of service: 06/14/2018 HISTORY: infiltrate COMPARISON: 06/13/2018 FINDINGS: LUNGS: No active pulmonary disease. PLEURA: Elevated right hemidiaphragm. CARDIOVASCULAR: Normal. OSSEOUS STRUCTURES: No significant abnormalities. VISUALIZED UPPER ABDOMEN: Normal. OTHER FINDINGS: Left-sided dialysis catheter terminates in the right atrium. Right-sided Port-A-Cath in the SVC IMPRESSION: No active disease.
--- NOTE | 2018-06-14 11:27 | PN ---
DATE: 06/14/2018 REASON FOR THE CONSULTATION AND FOLLOWUP: Shortness of breath, hypotension, moved to ICU, awake and alert. Getting dialysis. SUBJECTIVE: The patient denies any chest pain, shortness of breath or any palpitation. OBJECTIVE: GENERAL: Not in any apparent distress, awake and alert. Getting preparation for dialysis. Son named Micah is at the bedside. VITAL SIGNS: Temperature afebrile, heart rate 86, blood pressure 116/61. HEENT: PERRLA. Extraocular muscles intact. NECK: Supple. No carotid bruit. No thyromegaly. CHEST: Clear to auscultation. HEART: S1 and S2 regular. ABDOMEN: Soft. EXTREMITIES: Clubbing and cyanosis negative. LABORATORY DATA: Blood workup as follows; WBC 9.7, hemoglobin 9.8, hematocrit 29.1, platelet count 107. Chemistry shows sodium 140, potassium 5, chloride 108, carbon dioxide 16, anion gap of 21, BUN 105, creatinine 3.2. IMPRESSION: This is a 62-year-old female with past medical history significant for breast cancer, initially admitted on 05/05/2018 to [facility] [place] failure, had a nodule in the liver, status post lumpectomy, left breast cancer with metastasis, hypertension, chronic obstructive pulmonary disease, morbid obesity, bipolar, depression, dyslipidemia, gout, history of chronic renal insufficiency. Recent V/Q scan at [facility] was negative for pulmonary embolism. CAT scan of the chest shows multiple nodule, most likely metastatic disease of the lung. The patient was on Telemetry, more short of breath. , the patient has a Shiley catheter now. The patient had yesterday dialysis and today is again second dialysis, is in the process of getting dialysis. Repeat echo done yesterday shows ejection fraction of 60-65%. No aortic regurgitation. Trace mitral regurgitation. [id number] tricuspid regurgitation. No pericardial effusion. Right ventricular systolic pressure of 42. RECOMMENDATIONS: Continue dialysis as tolerated. The patient needs aggressive dialysis. Continue DVT prophylaxis. Continue broad-spectrum antibiotic. We will follow with you. Thank you, Dr. Flores, for providing us the opportunity in taking care of the patient, Leydi Strong. Mohammad Zaid, MD [facility] # [phone]
--- NOTE | 2018-06-14 11:39 | CP.CCUPN ---
<Mariel Cid - Last Filed: 06/14/18 12:01> CCU Subjective - Physician Review Subjective (Free Text): Patient seen and examined this AM at bedside. No new events overnight per nursing. patient remains on levophedrine and vasopressin for BP support and O2NC. She is saturating well resting comfortably with no tachycardia and nor respiratory distress 06/14/18 11:37 CCU Objective - Vital Signs / Intake & Output Vital Signs (Last 4 hours): Vital Signs Pulse BP Pulse Ox 06/14/18 09:00 86 121/60 96 06/14/18 08:00 86 72/56 L 98 Intake and Output (Last 8hrs): Intake & Output 06/13/18 06/14/18 06/14/18 22:59 06:59 14:59 Intake Total 1393 1583 Output Total 60 60 Balance 1333 1523 Intake: IV 1393 1343 Dopamine 25 25 IVPB 250 250 Levophed 933 933 Right Wrist 0 Vasopressin 135 135 Oral 240 Output: Urine 60 60 2-way Urethral 60 60 Stool 0 Emesis 0 - Physical Exam Head: Positive for: Atraumatic Pupils: Positive for: PERRL Extroacular Muscles: Positive for: EOMI Conjunctiva: Positive for: Normal Mouth: Positive for: Moist Mucous Membranes Neck: Positive for: Normal Range of Motion Respiratory/Chest: Positive for: Good Air Exchange, Wheezes (bilateral expiratory wheeze), Tachypneic. Negative for: Clear to Auscultation, Respiratory Distress, Accessory Muscle Use, Tender to Palpation Cardiovascular: Positive for: Normal S1, S2 Abdomen: Positive for: Normal Bowel Sounds. Negative for: Tenderness, Rebound, Guarding Upper Extremity: Positive for: Edema, Normal ROM Lower Extremity: Positive for: Normal Inspection, Edema, Other (left femoral vein central line in place, site is clean, sterile dressing intact). Negative for: CALF TENDERNESS, Tenderness, Deformity Neurological: Positive for: GCS=15, CN II-XII Intact Skin: Positive for: Warm, Dry, Normal Color Psychiatric: Positive for: Lethargic - Medications Active Medications: Active Medications Generic Name Dose Route Start Last Admin Trade Name Freq PRN Reason Stop Dose Admin Albumin Human 12.5 gm 06/13/18 12:45 06/14/18 05:10 Albumin Human 25% (12.5 Gm/50 Ml) IV 12.5 gm Q8H TAZ Administration Benzocaine/Menthol 1 rosey 06/10/18 18:45 Cepacol Sore Throat MT Q2H PRN Sore Throat Budesonide 0.5 mg 06/11/18 20:00 06/14/18 07:16 Pulmicort Respules IH 0.5 mg [id number] TAZ Administration Docusate Sodium 200 mg 06/10/18 12:00 06/13/18 11:02 Colace PO Not Given DAILY TAZ Heparin Sodium (Porcine) 5,000 units 06/08/18 22:00 06/13/18 21:45 Heparin SC 5,000 units Q12 TAZ Administration Protocol Hydrocortisone Sodium Succinate 100 mg 06/12/18 22:00 06/14/18 05:11 Solu-Cortef IVP 100 mg Q8 TAZ Administration Meropenem 500 mg/ Sodium 50 mls @ 100 mls/hr 06/12/18 22:00 06/13/18 21:51 Chloride IVPB 06/17/18 22:01 100 mls/hr Q12 TAZ Administration Protocol Doxycycline Hyclate 100 mg/ 100 mls @ 100 mls/hr 06/12/18 22:00 06/13/18 21: 58 Sodium Chloride IVPB 100 mls/hr Q12 TAZ Administration Protocol Norepinephrine Bitartrate 8 mg 508 mls @ 15.24 mls/hr 06/13/18 08:54 05:09 / Sodium Chloride IV 15 mcg/min .Q24H PRN 57.15 mls/hr TITRATE PER MD ORDER Administration Protocol 4 MCG/MIN Vasopressin 20 units/ Sodium 101 mls @ 12.12 mls/hr 06/13/18 09:42 06/14/18 07:00 Chloride IV 12.12 mls/hr .Q8H20M TAZ Administration Protocol 0.04 U/MIN Levalbuterol HCl 1.25 mg 06/07/18 02:00 06/14/18 07:16 Xopenex IH 1.25 mg [id number] TAZ Administration Lidocaine HCl 15 ml 06/10/18 18:43 06/10/18 18:51 Lidocaine 2% Viscous PO 15 ml Q3H PRN Administration Sore Throat Lorazepam 1 mg 06/09/18 18:15 06/11/18 23:48 Ativan PO 1 mg TID PRN Administration anxiety/agitation Protocol Olanzapine 2.5 mg 06/13/18 16:39 Zyprexa PO DAILY PRN agitation/psychosis Protocol Pantoprazole Sodium 20 mg 06/08/18 09:35 06/14/18 05:09 Protonix Ec Tab PO Not Given 0600 [facility] Polyethylene Glycol 17 gm 06/10/18 12:00 06/13/18 11:06 Miralax PO Not Given DAILY TAZ - Patient Studies Lab Studies: Microbiology Studies 06/13/18 07:30 Blood Culture - Preliminary Blood-Venous NO GROWTH AFTER 24 HOURS 06/13/18 07:30 Blood Culture - Preliminary Blood-Venous NO GROWTH AFTER 24 HOURS Lab Studies 06/14/18 06/14/18 06/14/18 Range/Units 06:15 06:15 06:15 WBC 29.7 H* D (4.5-11.0) 10^3/ul RBC 3.76 (3.5-6.1) 10^6/uL Hgb 9.2 L (12.0-16.0) g/dL Hct 29.1 L (36.0-48.0) % MCV 77.4 L (80.0-105.0) fl MCH 24.5 L (25.0-35.0) pg MCHC 31.6 (31.0-37.0) g/dl RDW 19.7 H (11.5-14.5) % Plt Count 107 L (120.0-450.0) 10^3/uL pCO2 25 L (35-45) mm/Hg pO2 102.0 H (30-55) mm/Hg HCO3 14.5 L (21-28) mmol/L ABG pH 7.37 (7.35-7.45) ABG Total CO2 15.3 L (22-28) mmol.L ABG O2 Saturation 99.5 H (95-98) % ABG O2 Content 13.7 L (15-23) ML/dl ABG Base Excess -9.4 L (-2.0-3.0) mmol/L ABG Hemoglobin 10.0 L (11.7-17.4) g/dL ABG Carboxyhemoglobin 2.1 H (0.5-1.5) % POC ABG HHb (Measured) 0.5 (0-5) % ABG Methemoglobin 1.5 (0.0-3.0) % ABG O2 Capacity 13.8 L (16-24) mL/dl VBG pH (7.32-7.43) VBG pCO2 (40-60) VBG HCO3 (21-28) mmol/l VBG Total CO2 (22-28) mmol.L VBG O2 Sat (Calc) (40-65) % VBG Base Excess (0.0-2.0) mmol/L VBG Potassium (3.6-5.2) mmol/L Hgb O2 Saturation 95.9 (95.0-98.0) % Sodium 140 (132-148) mmol/L Chloride 108 H (98-107) mmol/L Glucose (65-105) mg/dl Lactate (0.7-2.1) mmol/L FiO2 32.0 % Potassium 5.0 (3.6-5.0) mmol/L Carbon Dioxide 16 L (21-33) mmol/L Anion Gap 21 H (10-20) BUN 105 H (7-21) mg/dL Creatinine 3.2 H (0.7-1.2) mg/dl Est GFR ( Amer) 18 Est GFR (Non-Af Amer) 15 Random Glucose 147 H (70-110) mg/dL Calcium 7.8 L (8.4-10.5) mg/dL Total Bilirubin 3.1 H (0.2-1.3) mg/dL AST 2038 H (14-36) U/L ALT 182 H (7-56) U/L Alkaline Phosphatase 797 H (38-126) U/L Total Protein 5.4 L (5.8-8.3) g/dL Albumin 2.8 L (3.0-4.8) g/dL Globulin 2.6 gm/dL Albumin/Globulin Ratio 1.1 (1.1-1.8) Venous Blood Potassium (3.6-5.2) mmol/L Urine Color (YELLOW) Urine Appearance (CLEAR) Urine pH (4.7-8.0) Ur Specific Cecil (1.005-1.035) Urine Protein (<30 mg/dL) mg/dL Urine Glucose (UA) (NEGATIVE) mg/dL Urine Ketones (NEGATIVE) mg/dL Urine Blood (NEGATIVE) Urine Nitrate (NEGATIVE) Urine Bilirubin (NEGATIVE) Urine Urobilinogen (<1 E.U./dL) E.U./dL Ur Leukocyte Esterase (NEGATIVE) [place]/uL Urine RBC (0-2) /hpf Urine WBC (0-6) /hpf Ur Epithelial Cells (0-5) /hpf Urine Bacteria (NEG) Urine Other 06/13/18 06/13/18 06/13/18 Range/Units 18:42 15:20 15:20 WBC (4.5-11.0) 10^3/ul RBC (3.5-6.1) 10^6/uL Hgb (12.0-16.0) g/dL Hct (36.0-48.0) % MCV (80.0-105.0) fl MCH (25.0-35.0) pg MCHC (31.0-37.0) g/dl RDW (11.5-14.5) % Plt Count (120.0-450.0) 10^3/uL pCO2 (35-45) mm/Hg pO2 47 (30-55) mm/Hg HCO3 (21-28) mmol/L ABG pH (7.35-7.45) ABG Total CO2 (22-28) mmol.L ABG O2 Saturation (95-98) % ABG O2 Content (15-23) ML/dl ABG Base Excess (-2.0-3.0) mmol/L ABG Hemoglobin (11.7-17.4) g/dL ABG Carboxyhemoglobin (0.5-1.5) % POC ABG HHb (Measured) (0-5) % ABG Methemoglobin (0.0-3.0) % ABG O2 Capacity (16-24) mL/dl VBG pH 7.32 (7.32-7.43) VBG pCO2 30.0 L (40-60) VBG HCO3 15.5 L (21-28) mmol/l VBG Total CO2 16.4 L (22-28) mmol.L VBG O2 Sat (Calc) 82.8 H (40-65) % VBG Base Excess -9.3 L (0.0-2.0) mmol/L VBG Potassium 4.9 (3.6-5.2) mmol/L Hgb O2 Saturation (95.0-98.0) % Sodium 136.0 139 (132-148) mmol/L Chloride 104.0 105 (98-107) mmol/L Glucose 174 H (65-105) mg/dl Lactate 5.2 H* (0.7-2.1) mmol/L FiO2 21.0 % Potassium 5.1 H (3.6-5.0) mmol/L Carbon Dioxide 16 L (21-33) mmol/L Anion Gap 23 H (10-20) BUN 93 H (7-21) mg/dL Creatinine 2.8 H (0.7-1.2) mg/dl Est GFR ( Amer) 21 Est GFR (Non-Af Amer) 17 Random Glucose 162 H (70-110) mg/dL Calcium 7.9 L (8.4-10.5) mg/dL Total Bilirubin 3.3 H (0.2-1.3) mg/dL AST 660 H D (14-36) U/L ALT 91 H (7-56) U/L Alkaline Phosphatase 931 H (38-126) U/L Total Protein 5.5 L (5.8-8.3) g/dL Albumin 2.6 L (3.0-4.8) g/dL Globulin 2.9 gm/dL Albumin/Globulin Ratio 0.9 L (1.1-1.8) Venous Blood Potassium 4.9 (3.6-5.2) mmol/L Urine Color Dark yellow (YELLOW) Urine Appearance Slight-cloudy (CLEAR) Urine pH 5.0 (4.7-8.0) Ur Specific Cecil >= 1.030 (1.005-1.035) Urine Protein 100 H (<30 mg/dL) mg/dL Urine Glucose (UA) Negative (NEGATIVE) mg/dL Urine Ketones Trace H (NEGATIVE) mg/dL Urine Blood Large H (NEGATIVE) Urine Nitrate Negative (NEGATIVE) Urine Bilirubin Small H (NEGATIVE) Urine Urobilinogen 0.2 (<1 E.U./dL) E.U./dL Ur Leukocyte Esterase Moderate H (NEGATIVE) [place]/uL Urine RBC 2 - 5 (0-2) /hpf Urine WBC 10 - 15 (0-6) /hpf Ur Epithelial Cells 3 - 4 (0-5) /hpf Urine Bacteria Small (NEG) Urine Other [facility] Laboratory Results - last 24 hr 06/13/18 06/13/18 06/13/18 15:20 15:20 18:42 WBC RBC Hgb Hct MCV MCH MCHC RDW Plt Count pCO2 pO2 47 HCO3 ABG pH ABG Total CO2 ABG O2 Saturation ABG O2 Content ABG Base Excess ABG Hemoglobin ABG Carboxyhemoglobin POC ABG HHb (Measured) ABG Methemoglobin ABG O2 Capacity VBG pH 7.32 VBG pCO2 30.0 L VBG HCO3 15.5 L VBG Total CO2 16.4 L VBG O2 Sat (Calc) 82.8 H VBG Base Excess -9.3 L VBG Potassium 4.9 Hgb O2 Saturation Sodium 139 136.0 Chloride 105 104.0 Glucose 174 H Lactate 5.2 H* FiO2 21.0 Potassium 5.1 H Carbon Dioxide 16 L Anion Gap 23 H BUN 93 H Creatinine 2.8 H Est GFR ( Amer) 21 Est GFR (Non-Af Amer) 17 Random Glucose 162 H Calcium 7.9 L Total Bilirubin 3.3 H AST 660 H D ALT 91 H Alkaline Phosphatase 931 H Total Protein 5.5 L Albumin 2.6 L Globulin 2.9 Albumin/Globulin Ratio 0.9 L Venous Blood Potassium 4.9 Urine Color Dark yellow Urine Appearance Slight-cloudy Urine pH 5.0 Ur Specific Cecil >= 1.030 Urine Protein 100 H Urine Glucose (UA) Negative Urine Ketones Trace H Urine Blood Large H Urine Nitrate Negative Urine Bilirubin Small H Urine Urobilinogen 0.2 Ur Leukocyte Esterase Moderate H Urine RBC 2 - 5 Urine WBC 10 - 15 Ur Epithelial Cells 3 - 4 Urine Bacteria Small Urine Other [facility]ast 06/14/18 06/14/18 06/14/18 06:15 06:15 06:15 WBC 29.7 H* D RBC 3.76 Hgb 9.2 L Hct 29.1 L MCV 77.4 L MCH 24.5 L MCHC 31.6 RDW 19.7 H Plt Count 107 L pCO2 25 L pO2 102.0 H HCO3 14.5 L ABG pH 7.37 ABG Total CO2 15.3 L ABG O2 Saturation 99.5 H ABG O2 Content 13.7 L ABG Base Excess -9.4 L ABG Hemoglobin 10.0 L ABG Carboxyhemoglobin 2.1 H POC ABG HHb (Measured) 0.5 ABG Methemoglobin 1.5 ABG O2 Capacity 13.8 L VBG pH VBG pCO2 VBG HCO3 VBG Total CO2 VBG O2 Sat (Calc) VBG Base Excess VBG Potassium Hgb O2 Saturation 95.9 Sodium 140 Chloride 108 H Glucose Lactate FiO2 32.0 Potassium 5.0 Carbon Dioxide 16 L Anion Gap 21 H BUN 105 H Creatinine 3.2 H Est GFR ( Amer) 18 Est GFR (Non-Af Amer) 15 Random Glucose 147 H Calcium 7.8 L Total Bilirubin 3.1 H AST 2038 H ALT 182 H Alkaline Phosphatase 797 H Total Protein 5.4 L Albumin 2.8 L Globulin 2.6 Albumin/Globulin Ratio 1.1 Venous Blood Potassium Urine Color Urine Appearance Urine pH Ur Specific Cecil Urine Protein Urine Glucose (UA) Urine Ketones Urine Blood Urine Nitrate Urine Bilirubin Urine Urobilinogen Ur Leukocyte Esterase Urine RBC Urine WBC Ur Epithelial Cells Urine Bacteria Urine Other Review of Systems - Review of Systems Systems not reviewed;Unavailable: Altered Mental Status Critical Care Progress Note - Extremities/Vascular Does the Patient have a Central Venous Catheter?: Yes Insertion Site: Femoral Vein Does the Patient need a Central Venous Catheter?: Yes Does the Patient have a Lane Catheter?: Yes Does the Patient need a Lane Catheter?: Yes Catheter Insertion Criteria: Need for accurate measurement of output in critically ill patient - Restraints Justification for Restraints: High risk for removing IV access - Prophylaxis GI Prophylaxis GI: PPI - Prophylaxis DVT Prophylaxis DVT: Heparin SQ, SCDs - Nutrition Nutrition: Nutrition Category Date Time Status Pureed [Dysphagia/Modified Consistency Diet] [DIET] Diets 06/13/18 Breakfast Ordered Assessment/Plan - Assessment and Plan (Free Text) Assessment: 62F with hx of COPD, breast cancer with mets s/p chemo/radiation (08/2017) and left lumpectomy, CKD (baseline Cr 2.6), HTN, bipolar disorder, depression admitted to the ICU for the second time this admission - this time for shock ( unclear etio). She was recently hospitalized this past May with acute on chronic renal failure, sob was tx inpatient and sent home. Did not do well at home, poor PO intake and incr SOB. Re-dmitted 06/06 directly to ICU for again sob and acute on chronic renal failure, severe sepsis. Stabilized with abx and IVF and transferrred to floors. Returns to ICU over this past weekend with hypotension, elec lac, sob, leukocytosis and worsening kidney function. Plan: General: Encourage discussion about code status considering metastatic disease and grave prognosis Neuro: drowsy, lethargic difficult to arouse, orientation not able to be assessed Cardio: - BP remained relatively stable this morning and during dialysis, no additional pressors required - requiring levephedrine 20mcg and Vasopressin 0.04 for BP control - Echo 06/12/18 shows normal EF. normal valve function, mild TR. - Hx of HTN. hold home irbesartan and bystolic in setting of low BP. - Monitor Pulm: -hx of COPD (not on home O2). as per son, patient uses ventolin inhaler at home. Never a smoker. - continue duonebs and maintain O2 sats >90% -Verified with [facility] pharmacy, patient was recently sent home on prednisone 20 mg PO BID (from recent [facility] admission on 06/01/18 - patient was on IV steroids in hospital). -Xopenex prn, Prednisone 20 mg PO daily, will taper. -On 3L NC, saturating well, wean as tolerated - CT chest 06/06 shows moderate size right sided pleural effusion. Nodularity in both lung, indeterminate for malignancy, largest nodule is 1.3 cm (similar findings on chest CT on 05/2018). Mild diffuse subcutaneous edema in the lower abdomen and pelvis. Liver is heterogenous in appearance and appears to contain multiple mets. -- LE US negative for DVT, no right heart strain on echo; IVC compressible supporting hypovolemic shock differential GI: - HHD - Protonix. - increasing transaminitis - Gall bladder and liver US ordered - GI consulted for further evaluation Renal: - BUN/Cr 105/3.2 (baseline Cr 2.4) - Replace lytes, maintain euvolemia. - recieved dialysis today - Monitor ID: - femoral line obtained 06/13 d/t need for appropriate IV access to run pressors and abx - afebrile,+ leukocytosis, improving - WBC 29.7 - CXR stable - CT chest 06/06 shows moderate size right sided pleural effusion. Nodularity in both lung, indeterminate for malignancy, largest nodule is 1.3 cm (similar findings on chest CT on 05/2018). - UA 06/13 difficult to assess d/t squamous cell contamination; WBC, leuk esterase and bacteria positive. - Blood and urine cultures negative to date - Port-a-cath placed 05/29/[address] Pino, flushing well. - abx: Merrem and doxycycline per ID - ID on board. Heme: - Hgb 9.2, platelets normal - continue to monitor DVT ppx: scds, Heparin GI ppx: protonix Case seen and discussed with Dr. Khurram Cid, PGY1 - Date & Time Date: 06/14/18 <Tim Paulson - Last Filed: 06/14/18 15:30> CCU Objective - Vital Signs / Intake & Output Vital Signs (Last 4 hours): Vital Signs Temp BP BP 06/14/18 15:08 109/60 06/14/18 12:37 126/70 06/14/18 11:53 98.7 F Intake and Output (Last 8hrs): Intake & Output 06/14/18 06/14/18 06/14/18 06:59 14:59 22:59 Intake Total 1583 508 318 Output Total 60 Balance 1523 508 318 Intake: IV 1343 508 318 Dopamine 25 IVPB 250 Levophed 933 Right Wrist 0 Vasopressin 135 Oral 240 Output: Urine 60 2-way Urethral 60 Stool 0 Emesis 0 - Medications Active Medications: Active Medications Generic Name Dose Route Start Last Admin Trade Name Freq PRN Reason Stop Dose Admin Albumin Human 12.5 gm 06/13/18 12:45 06/14/18 05:10 Albumin Human 25% (12.5 Gm/50 Ml) IV 12.5 gm Q8H TAZ Administration Benzocaine/Menthol 1 rosey 06/10/18 18:45 Cepacol Sore Throat MT Q2H PRN Sore Throat Budesonide 0.5 mg 06/11/18 20:00 06/14/18 07:16 Pulmicort Respules IH 0.5 mg [id number] TAZ Administration Docusate Sodium 200 mg 06/10/18 12:00 06/14/18 15:27 Colace PO Not Given DAILY TAZ Heparin Sodium (Porcine) 5,000 units 06/08/18 22:00 06/14/18 10:00 Heparin SC 5,000 units Q12 TAZ Administration Protocol Hydrocortisone Sodium Succinate 100 mg 06/12/18 22:00 06/14/18 15:13 Solu-Cortef IVP 100 mg Q8 TAZ Administration Meropenem 500 mg/ Sodium 50 mls @ 100 mls/hr 06/12/18 22:00 06/14/18 15:12 Chloride IVPB 06/17/18 22:01 100 mls/hr Q12 TAZ Administration Protocol Doxycycline Hyclate 100 mg/ 100 mls @ 100 mls/hr 06/12/18 22:00 06/14/18 15: 09 Sodium Chloride IVPB 100 mls/hr Q12 TAZ Administration Protocol Norepinephrine Bitartrate 8 mg 508 mls @ 15.24 mls/hr 06/13/18 08:54 15:00 / Sodium Chloride IV 10 mcg/min .Q24H PRN 38.1 mls/hr TITRATE PER MD ORDER Titration Protocol 4 MCG/MIN Vasopressin 20 units/ Sodium 101 mls @ 12.12 mls/hr 06/13/18 09:42 06/14/18 15:08 Chloride IV 12.12 mls/hr .Q8H20M TAZ Administration Protocol 0.04 U/MIN Levalbuterol HCl 1.25 mg 06/07/18 02:00 06/14/18 13:06 Xopenex IH 1.25 mg [id number] TAZ Administration Lidocaine HCl 15 ml 06/10/18 18:43 06/10/18 18:51 Lidocaine 2% Viscous PO 15 ml Q3H PRN Administration Sore Throat Lorazepam 1 mg 06/09/18 18:15 06/11/18 23:48 Ativan PO 1 mg TID PRN Administration anxiety/agitation Protocol Olanzapine 2.5 mg 06/13/18 16:39 Zyprexa PO DAILY PRN agitation/psychosis Protocol Pantoprazole Sodium 20 mg 06/08/18 09:35 06/14/18 05:09 Protonix Ec Tab PO Not Given 0600 TAZ Polyethylene Glycol 17 gm 06/10/18 12:00 06/14/18 15:15 Miralax PO 17 gm DAILY TAZ Administration - Patient Studies Lab Studies: Microbiology Studies 06/13/18 07:30 Blood Culture - Preliminary Blood-Venous NO GROWTH AFTER 24 HOURS 06/13/18 07:30 Blood Culture - Preliminary Blood-Venous NO GROWTH AFTER 24 HOURS Lab Studies 06/14/18 06/14/18 06/14/18 Range/Units 06:15 06:15 06:15 WBC 29.7 H* D (4.5-11.0) 10^3/ul RBC 3.76 (3.5-6.1) 10^6/uL Hgb 9.2 L (12.0-16.0) g/dL Hct 29.1 L (36.0-48.0) % MCV 77.4 L (80.0-105.0) fl MCH 24.5 L (25.0-35.0) pg MCHC 31.6 (31.0-37.0) g/dl RDW 19.7 H (11.5-14.5) % Plt Count 107 L (120.0-450.0) 10^3/uL pCO2 25 L (35-45) mm/Hg pO2 102.0 H (30-55) mm/Hg HCO3 14.5 L (21-28) mmol/L ABG pH 7.37 (7.35-7.45) ABG Total CO2 15.3 L (22-28) mmol.L ABG O2 Saturation 99.5 H (95-98) % ABG O2 Content 13.7 L (15-23) ML/dl ABG Base Excess -9.4 L (-2.0-3.0) mmol/L ABG Hemoglobin 10.0 L (11.7-17.4) g/dL ABG Carboxyhemoglobin 2.1 H (0.5-1.5) % POC ABG HHb (Measured) 0.5 (0-5) % ABG Methemoglobin 1.5 (0.0-3.0) % ABG O2 Capacity 13.8 L (16-24) mL/dl VBG pH (7.32-7.43) VBG pCO2 (40-60) VBG HCO3 (21-28) mmol/l VBG Total CO2 (22-28) mmol.L VBG O2 Sat (Calc) (40-65) % VBG Base Excess (0.0-2.0) mmol/L VBG Potassium (3.6-5.2) mmol/L Hgb O2 Saturation 95.9 (95.0-98.0) % Sodium 140 (132-148) mmol/L Chloride 108 H (98-107) mmol/L Glucose (65-105) mg/dl Lactate (0.7-2.1) mmol/L FiO2 32.0 % Potassium 5.0 (3.6-5.0) mmol/L Carbon Dioxide 16 L (21-33) mmol/L Anion Gap 21 H (10-20) BUN 105 H (7-21) mg/dL Creatinine 3.2 H (0.7-1.2) mg/dl Est GFR ( Amer) 18 Est GFR (Non-Af Amer) 15 Random Glucose 147 H (70-110) mg/dL Calcium 7.8 L (8.4-10.5) mg/dL Total Bilirubin 3.1 H (0.2-1.3) mg/dL AST 2038 H (14-36) U/L ALT 182 H (7-56) U/L Alkaline Phosphatase 797 H (38-126) U/L Total Protein 5.4 L (5.8-8.3) g/dL Albumin 2.8 L (3.0-4.8) g/dL Globulin 2.6 gm/dL Albumin/Globulin Ratio 1.1 (1.1-1.8) Venous Blood Potassium (3.6-5.2) mmol/L Urine Color (YELLOW) Urine Appearance (CLEAR) Urine pH (4.7-8.0) Ur Specific Cecil (1.005-1.035) Urine Protein (<30 mg/dL) mg/dL Urine Glucose (UA) (NEGATIVE) mg/dL Urine Ketones (NEGATIVE) mg/dL Urine Blood (NEGATIVE) Urine Nitrate (NEGATIVE) Urine Bilirubin (NEGATIVE) Urine Urobilinogen (<1 E.U./dL) E.U./dL Ur Leukocyte Esterase (NEGATIVE) [place]/uL Urine RBC (0-2) /hpf Urine WBC (0-6) /hpf Ur Epithelial Cells (0-5) /hpf Urine Bacteria (NEG) Urine Other 06/13/18 06/13/18 06/13/18 Range/Units 18:42 15:20 15:20 WBC (4.5-11.0) 10^3/ul RBC (3.5-6.1) 10^6/uL Hgb (12.0-16.0) g/dL Hct (36.0-48.0) % MCV (80.0-105.0) fl MCH (25.0-35.0) pg MCHC (31.0-37.0) g/dl RDW (11.5-14.5) % Plt Count (120.0-450.0) 10^3/uL pCO2 (35-45) mm/Hg pO2 47 (30-55) mm/Hg HCO3 (21-28) mmol/L ABG pH (7.35-7.45) ABG Total CO2 (22-28) mmol.L ABG O2 Saturation (95-98) % ABG O2 Content (15-23) ML/dl ABG Base Excess (-2.0-3.0) mmol/L ABG Hemoglobin (11.7-17.4) g/dL ABG Carboxyhemoglobin (0.5-1.5) % POC ABG HHb (Measured) (0-5) % ABG Methemoglobin (0.0-3.0) % ABG O2 Capacity (16-24) mL/dl VBG pH 7.32 (7.32-7.43) VBG pCO2 30.0 L (40-60) VBG HCO3 15.5 L (21-28) mmol/l VBG Total CO2 16.4 L (22-28) mmol.L VBG O2 Sat (Calc) 82.8 H (40-65) % VBG Base Excess -9.3 L (0.0-2.0) mmol/L VBG Potassium 4.9 (3.6-5.2) mmol/L Hgb O2 Saturation (95.0-98.0) % Sodium 136.0 139 (132-148) mmol/L Chloride 104.0 105 (98-107) mmol/L Glucose 174 H (65-105) mg/dl Lactate 5.2 H* (0.7-2.1) mmol/L FiO2 21.0 % Potassium 5.1 H (3.6-5.0) mmol/L Carbon Dioxide 16 L (21-33) mmol/L Anion Gap 23 H (10-20) BUN 93 H (7-21) mg/dL Creatinine 2.8 H (0.7-1.2) mg/dl Est GFR ( Amer) 21 Est GFR (Non-Af Amer) 17 Random Glucose 162 H (70-110) mg/dL Calcium 7.9 L (8.4-10.5) mg/dL Total Bilirubin 3.3 H (0.2-1.3) mg/dL AST 660 H D (14-36) U/L ALT 91 H (7-56) U/L Alkaline Phosphatase 931 H (38-126) U/L Total Protein 5.5 L (5.8-8.3) g/dL Albumin 2.6 L (3.0-4.8) g/dL Globulin 2.9 gm/dL Albumin/Globulin Ratio 0.9 L (1.1-1.8) Venous Blood Potassium 4.9 (3.6-5.2) mmol/L Urine Color Dark yellow (YELLOW) Urine Appearance Slight-cloudy (CLEAR) Urine pH 5.0 (4.7-8.0) Ur Specific Cecil >= 1.030 (1.005-1.035) Urine Protein 100 H (<30 mg/dL) mg/dL Urine Glucose (UA) Negative (NEGATIVE) mg/dL Urine Ketones Trace H (NEGATIVE) mg/dL Urine Blood Large H (NEGATIVE) Urine Nitrate Negative (NEGATIVE) Urine Bilirubin Small H (NEGATIVE) Urine Urobilinogen 0.2 (<1 E.U./dL) E.U./dL Ur Leukocyte Esterase Moderate H (NEGATIVE) [place]/uL Urine RBC 2 - 5 (0-2) /hpf Urine WBC 10 - 15 (0-6) /hpf Ur Epithelial Cells 3 - 4 (0-5) /hpf Urine Bacteria Small (NEG) Urine Other [facility] Laboratory Results - last 24 hr 06/13/18 06/13/18 06/13/18 15:20 15:20 18:42 WBC RBC Hgb Hct MCV MCH MCHC RDW Plt Count pCO2 pO2 47 HCO3 ABG pH ABG Total CO2 ABG O2 Saturation ABG O2 Content ABG Base Excess ABG Hemoglobin ABG Carboxyhemoglobin POC ABG HHb (Measured) ABG Methemoglobin ABG O2 Capacity VBG pH 7.32 VBG pCO2 30.0 L VBG HCO3 15.5 L VBG Total CO2 16.4 L VBG O2 Sat (Calc) 82.8 H VBG Base Excess -9.3 L VBG Potassium 4.9 Hgb O2 Saturation Sodium 139 136.0 Chloride 105 104.0 Glucose 174 H Lactate 5.2 H* FiO2 21.0 Potassium 5.1 H Carbon Dioxide 16 L Anion Gap 23 H BUN 93 H Creatinine 2.8 H Est GFR ( Amer) 21 Est GFR (Non-Af Amer) 17 Random Glucose 162 H Calcium 7.9 L Total Bilirubin 3.3 H AST 660 H D ALT 91 H Alkaline Phosphatase 931 H Total Protein 5.5 L Albumin 2.6 L Globulin 2.9 Albumin/Globulin Ratio 0.9 L Venous Blood Potassium 4.9 Urine Color Dark yellow Urine Appearance Slight-cloudy Urine pH 5.0 Ur Specific Cecil >= 1.030 Urine Protein 100 H Urine Glucose (UA) Negative Urine Ketones Trace H Urine Blood Large H Urine Nitrate Negative Urine Bilirubin Small H Urine Urobilinogen 0.2 Ur Leukocyte Esterase Moderate H Urine RBC 2 - 5 Urine WBC 10 - 15 Ur Epithelial Cells 3 - 4 Urine Bacteria Small Urine Other [facility] 06/14/18 06/14/18 06/14/18 06:15 06:15 06:15 WBC 29.7 H* D RBC 3.76 Hgb 9.2 L Hct 29.1 L MCV 77.4 L MCH 24.5 L MCHC 31.6 RDW 19.7 H Plt Count 107 L pCO2 25 L pO2 102.0 H HCO3 14.5 L ABG pH 7.37 ABG Total CO2 15.3 L ABG O2 Saturation 99.5 H ABG O2 Content 13.7 L ABG Base Excess -9.4 L ABG Hemoglobin 10.0 L ABG Carboxyhemoglobin 2.1 H POC ABG HHb (Measured) 0.5 ABG Methemoglobin 1.5 ABG O2 Capacity 13.8 L VBG pH VBG pCO2 VBG HCO3 VBG Total CO2 VBG O2 Sat (Calc) VBG Base Excess VBG Potassium Hgb O2 Saturation 95.9 Sodium 140 Chloride 108 H Glucose Lactate FiO2 32.0 Potassium 5.0 Carbon Dioxide 16 L Anion Gap 21 H BUN 105 H Creatinine 3.2 H Est GFR ( Amer) 18 Est GFR (Non-Af Amer) 15 Random Glucose 147 H Calcium 7.8 L Total Bilirubin 3.1 H AST 2038 H ALT 182 H Alkaline Phosphatase 797 H Total Protein 5.4 L Albumin 2.8 L Globulin 2.6 Albumin/Globulin Ratio 1.1 Venous Blood Potassium Urine Color Urine Appearance Urine pH Ur Specific Cecil Urine Protein Urine Glucose (UA) Urine Ketones Urine Blood Urine Nitrate Urine Bilirubin Urine Urobilinogen Ur Leukocyte Esterase Urine RBC Urine WBC Ur Epithelial Cells Urine Bacteria Urine Other Critical Care Progress Note - Nutrition Nutrition: Nutrition Category Date Time Status Pureed [Dysphagia/Modified Consistency Diet] [DIET] Diets 06/13/18 Breakfast Ordered Addendum Addendum: 06/14/18 15:29 ICU Attending Addendum: Patient seen and examined. Case reviewed on round with housestaff. Agree with resident note above with the following additions/exceptions: 62F with hx of COPD, breast cancer with mets s/p chemo/radiation (08/2017) and left lumpectomy, CKD (baseline Cr 2.6), HTN, bipolar disorder, depression admitted to the ICU for the second time this admission - this time for shock ( unclear etio). Shock improved, requiring less pressor support now. Tolerated HD today without drop in BP. still unclear etiology of shock; I suspect she may be third spacing and intravascularly deplated which is why she became hypotensive with HD. In addition, echo does not show LV dysfunction. Low suspicion for PE given no RV strain on echo. IVC collapsable further supporting intravasc depletion. No signs of infection at this time however cont empiric broad abx while awaiting final cultures. At this point will cont levophed with vaso Add phenyl ephrine if needed trend lac Taper steroids to 50 q12h For her COPD, cont duonebs, keep 02 sat 90-92% Rest of care as noted above. Tim Paulson MD Clerical Adjuster Critical care time : 31 mins
--- NOTE | 2018-06-14 15:06 | PN ---
DATE: 06/14/2018 PULMONARY PROGRESS NOTE REFERRING PHYSICIAN: Jessica Flores MD SUBJECTIVE: She is lying in the bed, awake, alert, on nasal cannula. Tachypneic when snorted. Dialysis was tried. Only able to take half liter before she became hypotensive. She is on multiple pressors. Not much cough, sputum production, but short of breath with minimal exertional. No chest pain. No abdominal pain. Has leg swelling. OBJECTIVE: VITAL SIGNS: Temp is 98; heart rate is 86; respiratory rate is 26-30; blood pressure 126/70, on pressors; pulse ox 98% on nasal cannula. HEENT: Moist mucous membrane. Crowded airway. Mallampati score is 4. NECK: Short, thick neck. LUNGS: Have a fair airflow. Decreased breath sounds on the bases. HEART: S1 and S2. ABDOMEN: Soft, nondistended. EXTREMITY: Has edema of the both lower extremities. Has a triple-lumen catheter, left groin. NEUROLOGICAL: Awake and alert. Does follow simple command. MEDICATIONS: She is getting albumin 25% 12.5 g every 8 hours, lorazepam 1 mg three times a day p.r.n., Cepacol lozenges every 2 hours p.r.n., Colace 200 mg daily, doxycycline 100 mg twice a day, also getting heparin 5000 units subcu every 12 hours, lidocaine viscous to affected area every 3 hours, meropenem 500 mg every 12 hours, MiraLax 17 g daily, she is on Levophed, Protonix 20 mg daily, Pulmicort inhaled twice a day, Solu-Cortef 100 mg every 8 hours, vasopressin 20 is being titrated, Xopenex inhaled every 6 hours, Zyprexa is 2.5 mg daily p.r.n. LABORATORY DATA: Shows hemoglobin 9.2, hematocrit 29.1, WBC 29.7, platelet is 107. Has ABG done, which showed pH 7.37, pCO2 of 25, O2 of 102 that is on nasal cannula. Sodium 140, potassium 5, chloride 108, bicarbonate 16, BUN 105, creatinine 3.2, glucose 147, calcium is 7.8, AST 238, ALT 182, alk phos is 797, albumin is 2.8. Microbiology: Blood culture, urine culture, nasal culture are unremarkable. Chest x-ray done this morning shows no active pulmonary infiltrate or effusion. Elevated right hemidiaphragm. IMPRESSION AND PLAN: Metastatic breast cancer involving the lungs and liver; renal failure, presently on dialysis; anasarca; severe hypotension requiring multiple pressors including Solu-Cortef; bipolar disorder. Case discussed with the patient's son at bedside. All the questions answered. Pulmonary point of view, she is pretty good, on nasal cannula. Keep head at 45 degrees. Suspect for a sleep apnea syndrome. Avoid sedation. Antibiotics being adjusted by Infectious Diseases. Follow up chest x-ray, ABG, CBC, CMP in the morning. Also, being followed by Nephrology and constitutional law professor. Critical care time spent more than 35 minutes. Thank you we will follow with you. Dee German MD
[2018-06-14] MEDS: Meropenem 500 MG in Sodium Chloride 0.9% 50 ML IVPB SCH ×2 (15:12→21:20)
[2018-06-14] MEDS: POLYETHYLENE GLYCOL 3350 17 GM/Dose PACKET PO SCH (15:15)
--- NOTE | 2018-06-14 15:37 | CP.PCM.PN ---
Subjective - Date & Time of Evaluation Date of Evaluation: 06/14/18 Time of Evaluation: 09:15 - Subjective Subjective: Still having shortness of breath at rest, no fevers. On dialysis currently. Objective - Vital Signs/Intake and Output Vital Signs (last 24 hours): Temp Pulse Resp BP Pulse Ox 99.0 F 91 H 28 H 124/68 98 06/13/18 12:00 06/13/18 22:00 06/13/18 08:00 06/13/18 21:58 06/13/18 08:00 - Medications Medications: Current Medications Albumin Human (Albumin Human 25% (12.5 Gm/50 Ml)) 12.5 gm IV Q8H [facility] Last Admin: 06/14/18 05:10 Dose: 12.5 gm Benzocaine/Menthol (Cepacol Sore Throat) 1 rosey MT Q2H PRN PRN Reason: Sore Throat Budesonide (Pulmicort Respules) 0.5 mg IH [id number] [facility] Last Admin: 06/13/18 19:40 Dose: 0.5 mg Docusate Sodium (Colace) 200 mg PO DAILY [facility] Last Admin: 06/13/18 11:02 Dose: Not Given Heparin Sodium (Porcine) (Heparin) 5,000 units SC Q12 TAZ PRN Reason: Protocol Last Admin: 06/13/18 21:45 Dose: 5,000 units Hydrocortisone Sodium Succinate (Solu-Cortef) 100 mg IVP Q8 [facility] Last Admin: 06/14/18 05:11 Dose: 100 mg Meropenem 500 mg/ Sodium (Chloride) 50 mls @ 100 mls/hr IVPB Q12 TAZ PRN Reason: Protocol Stop: 06/17/18 22:01 Last Admin: 06/13/18 21:51 Dose: 100 mls/hr Doxycycline Hyclate 100 mg/ (Sodium Chloride) 100 mls @ 100 mls/hr IVPB Q12 TAZ PRN Reason: Protocol Last Admin: 06/13/18 21:58 Dose: 100 mls/hr Norepinephrine Bitartrate 8 mg (/ Sodium Chloride) 508 mls @ 15.24 mls/hr IV .Q24H PRN; Protocol; 4 MCG/MIN PRN Reason: TITRATE PER MD ORDER Last Admin: 06/14/18 05:09 Dose: 15 mcg/min, 57.15 mls/hr Vasopressin 20 units/ Sodium (Chloride) 101 mls @ 12.12 mls/hr IV .Q8H20M TAZ; 0.04 U/MIN PRN Reason: Protocol Last Admin: 06/13/18 21:58 Dose: 12.12 mls/hr Dopamine HCl/Dextrose (Dopamine 400mg/250ml D5w) 400 mg in 250 mls @ 25.004 mls /hr IV .Q10H PRN; Protocol; 5 MCG/KG/MIN PRN Reason: TITRATE PER MD ORDER Last Titration: 06/13/18 11:30 Dose: 0 mcg/kg/min, 0 mls/hr Levalbuterol HCl (Xopenex) 1.25 mg IH [id number] [facility] Last Admin: 06/14/18 02:25 Dose: Not Given Lidocaine HCl (Lidocaine 2% Viscous) 15 ml PO Q3H PRN PRN Reason: Sore Throat Last Admin: 06/10/18 18:51 Dose: 15 ml Lorazepam (Ativan) 1 mg PO TID PRN; Protocol PRN Reason: anxiety/agitation Last Admin: 06/11/18 23:48 Dose: 1 mg Olanzapine (Zyprexa) 2.5 mg PO DAILY PRN; Protocol PRN Reason: agitation/psychosis Pantoprazole Sodium (Protonix Ec Tab) 20 mg PO 0600 [facility] Last Admin: 06/14/18 05:09 Dose: Not Given Polyethylene Glycol (Miralax) 17 gm PO DAILY [facility] Last Admin: 06/13/18 11:06 Dose: Not Given - Labs Labs: 06/14/18 06:15 06/14/18 06:15 PT 14.0 SECONDS (9.4-12.5) H 06/07/18 06:40 INR 1.21 06/07/18 06:40 APTT 27.5 Seconds (25.1-36.5) 06/09/18 06:45 - Constitutional Appears: Chronically Ill, Other (tachypneic) - Neck Exam Neck Exam: absent: Meningismus - Respiratory Exam Respiratory Exam: Decreased Breath Sounds Additional comments: anterior chest wall port in place - Cardiovascular Exam Cardiovascular Exam: +S1, +S2 - GI/Abdominal Exam GI & Abdominal Exam: Soft. absent: Tenderness Assessment and Plan - Assessment and Plan (Free Text) Plan: Assessment probable sepsis from bilateral HCAP morbid obesity with BMI 47 HTN COPD depression with bipolar disorder chronic renal failure breast cancer with metastases S/P chemotherapy and radiation therapy S/P left lumpectomy Plan has had 5 days of Cefepime but patient still with tachypnea (which is multifactorial - pulmonary congestion, probable pneumonia) - continue Merrem and Doxycycline day 3; repeat septic work up negative so far; patient now also on dialysis will continue to monitor clinically follow up Cardiology and Renal further recommendations overall prognosis is poor
--- NOTE | 2018-06-14 15:49 | US ---
Date of service: 06/14/2018 HISTORY: transaminitis/ elevated bilirubin COMPARISON: 03/25/2012. TECHNIQUE: Standard protocol for this study/examination. FINDINGS: LIVER: Measures 24.1 cm in length. Hepatopedal blood flow. Fatty infiltration manifest ultrasonographically as increased echogenicity of the liver parenchyma. No mass. No intrahepatic bile duct dilatation. GALLBLADDER: Acute collapsed gallbladder accentuating gallbladder wall thickness. COMMON BILE DUCT: Measures 3.3 mm. No stones. No dilatation. PANCREAS: Obscured by overlying bowel gas. Non diagnostic assessment of the pancreas. RIGHT KIDNEY: Measures 5.2 x 10.4 cm in length. Normal echogenicity. No calculus, mass, or hydronephrosis. AORTA: No aneurysmal dilatation. IVC: Unremarkable. OTHER FINDINGS: Perihepatic ascites, low volume incompletely visualized. IMPRESSION: Hepatomegaly, hepatic steatosis without focal abnormality. Low volume ascites. Limitations of the current examination: Nondiagnostic assessment of the pancreas.
[2018-06-14] MEDS: Tiotropium 18 mcg Cap For Inhalation IH SCH (16:00)
--- NOTE | 2018-06-14 21:03 | PN ---
DATE: 06/14/2018 SUBJECTIVE: Patient is 62 years old, seen and examined, seems to be doing a little better, less short of breath, getting dialysis, 700 mL fluid will be removed. PHYSICAL EXAMINATION: VITAL SIGNS: She is afebrile, pulse 86, respirations 18, blood pressure 126/70. LUNGS: Bilateral fair airflow. No rhonchi or crackle. HEART: S1 and S2 audible. ABDOMEN: Soft, obese, nontender. No rebound. No guarding. NEUROLOGICAL: Patient is awake and alert. Answers simple questions. EXTREMITIES: Bilateral leg, +[address] ASSESSMENT: 1. Metastatic breast cancer. 2. Ascites. 3. Acute renal disease, on hemodialysis. 4 Leukocytosis, etiology is still unclear. 5. History of hypertension. 6. Hypoalbuminemia. PLAN: We will continue patient on albumin for now. She is on one pressor. We will continue on doxycycline. Currently she is on Levophed. Dopamine has been stopped. She is on Solu-Cortef. Continue nebulizer treatment. We will follow up the patient. Jessica Flores MD
--- NOTE | 2018-06-15 00:55 | CP.PCM.PN ---
Subjective - Date & Time of Evaluation Date of Evaluation: 06/14/18 Time of Evaluation: 08:00 - Subjective Subjective: Breathing better. ARF on hemodialysis. WC still elevated. On IV antibiotics. On pressor support. responds to verbal commands. Objective - Vital Signs/Intake and Output Vital Signs (last 24 hours): Temp Pulse Resp BP Pulse Ox 99.7 F H 104 H 24 122/86 78 L 06/15/18 00:00 06/14/18 22:00 06/14/18 07:20 06/15/18 00:28 06/14/18 18:00 Intake and Output: 06/14/18 06/15/18 18:59 06:59 Intake Total 2031 Output Total 500 Balance 1531 - Medications Medications: Current Medications Albumin Human (Albumin Human 25% (12.5 Gm/50 Ml)) 12.5 gm IV Q8H [facility] Last Admin: 06/14/18 21:18 Dose: 12.5 gm Benzocaine/Menthol (Cepacol Sore Throat) 1 rosey MT Q2H PRN PRN Reason: Sore Throat Budesonide (Pulmicort Respules) 0.5 mg IH [id number] [facility] Last Admin: 06/14/18 20:40 Dose: 0.5 mg Docusate Sodium (Colace) 200 mg PO DAILY [facility] Last Admin: 06/14/18 15:27 Dose: Not Given Heparin Sodium (Porcine) (Heparin) 5,000 units SC Q12 TAZ PRN Reason: Protocol Last Admin: 06/14/18 21:11 Dose: 5,000 units Hydrocortisone Sodium Succinate (Solu-Cortef) 100 mg IVP Q8 [facility] Last Admin: 06/14/18 21:20 Dose: 100 mg Meropenem 500 mg/ Sodium (Chloride) 50 mls @ 100 mls/hr IVPB Q12 TAZ PRN Reason: Protocol Stop: 06/17/18 22:01 Last Admin: 06/14/18 21:20 Dose: 100 mls/hr Doxycycline Hyclate 100 mg/ (Sodium Chloride) 100 mls @ 100 mls/hr IVPB Q12 TAZ PRN Reason: Protocol Last Admin: 06/14/18 21:21 Dose: 100 mls/hr Norepinephrine Bitartrate 8 mg (/ Sodium Chloride) 508 mls @ 15.24 mls/hr IV .Q24H PRN; Protocol; 4 MCG/MIN PRN Reason: TITRATE PER MD ORDER Last Titration: 06/14/18 17:00 Dose: 5 mcg/min, 19.05 mls/hr Vasopressin 20 units/ Sodium (Chloride) 101 mls @ 12.12 mls/hr IV .Q8H20M TAZ; 0.04 U/MIN PRN Reason: Protocol Last Admin: 06/15/18 00:28 Dose: 12.12 mls/hr Levalbuterol HCl (Xopenex) 1.25 mg IH [id number] [facility] Last Admin: 06/14/18 20:40 Dose: 1.25 mg Lidocaine HCl (Lidocaine 2% Viscous) 15 ml PO Q3H PRN PRN Reason: Sore Throat Last Admin: 06/10/18 18:51 Dose: 15 ml Lorazepam (Ativan) 1 mg PO TID PRN; Protocol PRN Reason: anxiety/agitation Last Admin: 06/11/18 23:48 Dose: 1 mg Olanzapine (Zyprexa) 2.5 mg PO DAILY PRN; Protocol PRN Reason: agitation/psychosis Pantoprazole Sodium (Protonix Ec Tab) 20 mg PO 0600 [facility] Last Admin: 06/14/18 05:09 Dose: Not Given Polyethylene Glycol (Miralax) 17 gm PO DAILY [facility] Last Admin: 06/14/18 15:15 Dose: 17 gm Tiotropium [place] (Spiriva) 18 mcg IH DAILY [facility] Last Admin: 06/14/18 16:00 Dose: Not Given - Labs Labs: 06/14/18 06:15 06/14/18 06:15 PT 14.0 SECONDS (9.4-12.5) H 06/07/18 06:40 INR 1.21 06/07/18 06:40 APTT 27.5 Seconds (25.1-36.5) 06/09/18 06:45 - Constitutional Appears: Chronically Ill - Head Exam Head Exam: ATRAUMATIC, NORMAL INSPECTION, NORMOCEPHALIC - Eye Exam Eye Exam: Normal appearance - ENT Exam ENT Exam: Mucous Membranes Moist, Normal Exam - Neck Exam Neck Exam: Normal Inspection - Respiratory Exam Respiratory Exam: Accessory Muscle Use, Clear to Ausculation Bilateral - Cardiovascular Exam Cardiovascular Exam: REGULAR RHYTHM, +S1, +S2 - GI/Abdominal Exam GI & Abdominal Exam: Soft, Normal Bowel Sounds - Extremities Exam Extremities Exam: Pedal Edema - Neurological Exam Additional comments: drowsy, responds to verbal commands. - Skin Skin Exam: Pallor Assessment and Plan - Assessment and Plan (Free Text) Assessment: 1. stage IV breast cancer. mets in liver, lung. Triple negative. Had been non complaint. Refused follow up after completion of adjuvant chemotherapy in March 2017. 2. Circulatory failure: on pressor support. 3. ARF : on hemodialysis. 4. respiratory distress : breathing improved. 5. Anemia : s/p PRBC. will monitor closely. 6. leukocytosis : no source of infection can be identified. on IV antibiotics. ID following. prognosis poor. son bedside. discussed the status with him.
[2018-06-15] MEDS: Levalbuterol 1.25 MG/3 ML Inhal Soln UD IH SCH ×5 (01:33→19:54)
[2018-06-15] MEDS: Norepinephrine 8 MG in Sodium Chloride 0.9% 500 ML IV PRN (01:34)
--- NOTE | 2018-06-15 02:13 | PN ---
DATE: 06/14/2018 SUBJECTIVE: The patient is seen lying in bed in the ICU. She is awake, she is alert. She is much more responsive today. She had dialysis earlier. Once again, no ultrafiltration was possible. Blood pressure remains low. She was on vasopressin and Levophed during the dialysis. Levophed had to be maximized. She has been afebrile overnight. T-max was 101.5 at 04:00 p.m. yesterday. Temperature this morning was 98.6. Blood pressure has remained low. She has remained on pressor support throughout. PHYSICAL EXAMINATION: GENERAL: Obese elderly lady lying in bed. VITAL SIGNS: Blood pressure 82/59, heart rate 105, respiratory rate 24, temperature 98.6. HEENT: Normocephalic, atraumatic, positive pallor, positive chemo-associated tanning. NECK: Supple, no JVD. LUNGS: Bilateral equal air entry, bilateral equal expansion, no rales. CARDIAC: S1 and S2, regular rate and rhythm, no murmur, no rub. ABDOMEN: Obese, distended, soft, nontender, bowel sounds present. EXTREMITIES: A 2+ pitting edema of the lower extremities. INTAKE AND OUTPUT: 3439/120. LABORATORY DATA: WBC 29.7, hemoglobin 9, hematocrit 29, platelets 107. Sodium 140, potassium 5, chloride 108, CO2 of 16, BUN 105, creatinine 3.2, anion gap is 16, glucose 147, calcium 7.8. Total bili 3.1, AST 2038, ALT 182, albumin 2.8, corrected calcium is 8.8. Blood cultures, no growth. Urine culture, no growth. Gallbladder ultrasound: Liver is 24.1 cm, fatty infiltration seen, no intrahepatic bile duct dilatation, collapsed gallbladder, hepatomegaly, hepatic steatosis, low-volume ascites. CURRENT MEDICATIONS: Albumin 12.5 every 8 hours, Ativan, Cepacol, Colace, doxycycline 100 every 12 hours, heparin, lidocaine, meropenem 500 every 12 hours, MiraLax, Levophed at 10 mcg, Protonix, Pulmicort, Solu-Cortef, Spiriva, vasopressin 12.2 mL/hour, Xopenex, and Zyprexa. ASSESSMENT: 1. Acute kidney injury superimposed on chronic kidney disease stage 3? 2. Septic shock. 3. Shock liver. 4. Severe anemia. 5. Respiratory and metabolic acidosis. 6. Hyperkalemia. 7. Stage IV breast cancer with lung metastasis and liver metastasis. PLAN: 1. The patient was dialyzed this morning, no ultrafiltration was possible. The patient remains volume overloaded, but is profoundly hypotensive. 2. We will plan again for dialysis tomorrow. 3. Continue antibiotics as per ID recommendations, cultures have all been negative. 4. Continue pressor support. 5. Prognosis is guarded. 6. Case discussed with son at bedside at length, case discussed with dialysis staff, case discussed with ICU staff. More than 35 minutes spent in the care of this critically ill patient. Loreta Giron MD
[2018-06-15] MEDS: Albumin Human 25% (12.5 gm/50 ml) IV SCH ×3 (04:49→20:41)
[2018-06-15 06:21] LABS: ARTERIAL BLOOD GAS HCO3 17.5 mmol/L (21-28); ARTERIAL BLOOD GAS HEMOGLOBIN 9.1 g/dL (11.7-17.4); ARTERIAL BLOOD GAS O2 CAPACITY 12.5 mL/dl (16-24); ARTERIAL BLOOD GAS O2 CONTENT 12.4 ML/dl (15-23); ARTERIAL BLOOD GAS O2 SAT 99.1 % (95-98); ARTERIAL BLOOD GAS PCO2 27 mm/Hg (35-45); ARTERIAL BLOOD GAS PH 7.42 (7.35-7.45); ARTERIAL BLOOD GAS TCO2 18.3 mmol.L (22-28)
[2018-06-15] MEDS: Pantoprazole 20 mg EC Tab PO SCH (06:37)
[2018-06-15 06:57] LABS: BASO # 0.08 K/mm3 (0.0-2.0); BASO % 0.3 % (0.0-3.0); EOS # 0.1 (0.0-0.7); EOS % 0.3 % (1.5-5.0); GRAN % 80.1 % (50.0-68.0); HEMOGLOBIN 9.2 g/dL (12.0-16.0); LYMPH % 16.6 % (22.0-35.0); MEAN CELL VOLUME 77.2 fl (80.0-105.0); MEAN CORPUSCULAR HEMOGLOBIN 24.7 pg (25.0-35.0); MEAN CORPUSCULAR HGB CONC 32.1 g/dl (31.0-37.0); MONO # 0.8 (0.1-0.6); MONO % 2.7 % (1.0-6.0); PLATELET COUNT 92 10^3/uL (120.0-450.0); RBC 3.72 10^6/uL (3.5-6.1); RED CELL DISTRIBUTION WIDTH 19.9 % (11.5-14.5)
--- NOTE | 2018-06-15 07:06 | CP.CCUPN ---
<Mariel Cid - Last Filed: 06/15/18 11:27> CCU Subjective - Physician Review Subjective (Free Text): Patient seen and examined this AM at bedside. Tmax 100.8 overnight. Arterial line no longer has sufficient wave form activity and has been removed. BP Cuff giving sufficient BP monitoring at this time. patient remains on levophedrine and vasopressin for BP support and O2NC. She is saturating well resting comfortably with mild tachycardia and tachypnea 06/15/18 07:03 CCU Objective - Vital Signs / Intake & Output Vital Signs (Last 4 hours): Vital Signs Temp Pulse BP Pulse Ox 06/15/18 06:53 100.2 F H 99 H 129/66 97 06/15/18 06:29 100.4 F H 102 H 107/60 96 06/15/18 06:00 100.8 F H 103 H 96 06/15/18 05:01 100.4 F H 97 H 125/67 97 06/15/18 05:00 100.4 F H 97 H 98 06/15/18 04:54 115/70 06/15/18 04:53 100.4 F H 96 H 98 06/15/18 04:00 100.2 F H 96 H 98 Intake and Output (Last 8hrs): Intake & Output 06/14/18 06/15/18 06/15/18 22:59 06:59 14:59 Intake Total 1633 Output Total 500 Balance 1133 Weight 297 lb 3.2 oz Intake: IV 1433 Dopamine 0 IVPB 300 Left femoral 0 Levophed 500 Vasopressin 125 Oral 200 Output: Urine 0 2-way Urethral 0 Other 500 Other: Voiding Method Indwelling Catheter # Bowel Movements 0 - Physical Exam Head: Positive for: Atraumatic Pupils: Positive for: PERRL Extroacular Muscles: Positive for: EOMI Conjunctiva: Positive for: Normal Mouth: Positive for: Moist Mucous Membranes Neck: Positive for: Normal Range of Motion Respiratory/Chest: Positive for: Good Air Exchange, Wheezes (bilateral expiratory wheeze), Tachypneic. Negative for: Clear to Auscultation, Respiratory Distress, Accessory Muscle Use, Tender to Palpation Cardiovascular: Positive for: Normal S1, S2 Abdomen: Positive for: Normal Bowel Sounds. Negative for: Tenderness, Rebound, Guarding Upper Extremity: Positive for: Edema, Normal ROM, Other (right wrist arterial line in place, poor wave form) Lower Extremity: Positive for: Normal Inspection, Edema, Other (left femoral vein central line in place, site is clean, sterile dressing intact). Negative for: CALF TENDERNESS, Tenderness, Deformity Neurological: Positive for: GCS=15, CN II-XII Intact Skin: Positive for: Warm, Dry, Normal Color Psychiatric: Positive for: Lethargic - Medications Active Medications: Active Medications Generic Name Dose Route Start Last Admin Trade Name Freq PRN Reason Stop Dose Admin Albumin Human 12.5 gm 06/13/18 12:45 06/15/18 04:49 Albumin Human 25% (12.5 Gm/50 Ml) IV 12.5 gm Q8H TAZ Administration Benzocaine/Menthol 1 rosey 06/10/18 18:45 Cepacol Sore Throat MT Q2H PRN Sore Throat Budesonide 0.5 mg 06/11/18 20:00 06/14/18 20:40 Pulmicort Respules IH 0.5 mg [id number] TAZ Administration Docusate Sodium 200 mg 06/10/18 12:00 06/14/18 15:27 Colace PO Not Given DAILY TAZ Heparin Sodium (Porcine) 5,000 units 06/08/18 22:00 06/14/18 21:11 Heparin SC 5,000 units Q12 TAZ Administration Protocol Hydrocortisone Sodium Succinate 100 mg 06/12/18 22:00 06/15/18 06:37 Solu-Cortef IVP 100 mg Q8 TAZ Administration Meropenem 500 mg/ Sodium 50 mls @ 100 mls/hr 06/12/18 22:00 06/14/18 21:20 Chloride IVPB 06/17/18 22:01 100 mls/hr Q12 TAZ Administration Protocol Doxycycline Hyclate 100 mg/ 100 mls @ 100 mls/hr 06/12/18 22:00 06/14/18 21: 21 Sodium Chloride IVPB 100 mls/hr Q12 TAZ Administration Protocol Norepinephrine Bitartrate 8 mg 508 mls @ 15.24 mls/hr 06/13/18 08:54 01:34 / Sodium Chloride IV 10 mcg/min .Q24H PRN 38.1 mls/hr TITRATE PER MD ORDER Administration Protocol 4 MCG/MIN Vasopressin 20 units/ Sodium 101 mls @ 12.12 mls/hr 06/13/18 09:42 06/15/18 00:28 Chloride IV 12.12 mls/hr .Q8H20M TAZ Administration Protocol 0.04 U/MIN Levalbuterol HCl 1.25 mg 06/07/18 02:00 06/15/18 01:33 Xopenex IH Not Given [id number] TAZ Lidocaine HCl 15 ml 06/10/18 18:43 06/10/18 18:51 Lidocaine 2% Viscous PO 15 ml Q3H PRN Administration Sore Throat Lorazepam 1 mg 06/09/18 18:15 06/11/18 23:48 Ativan PO 1 mg TID PRN Administration anxiety/agitation Protocol Olanzapine 2.5 mg 06/13/18 16:39 Zyprexa PO DAILY PRN agitation/psychosis Protocol Pantoprazole Sodium 20 mg 06/08/18 09:35 06/15/18 06:37 Protonix Ec Tab PO 20 mg 0600 TAZ Administration Polyethylene Glycol 17 gm 06/10/18 12:00 06/14/18 15:15 Miralax PO 17 gm DAILY TAZ Administration Tiotropium [place] 18 mcg 06/14/18 15:45 06/14/18 16:00 Spiriva IH Not Given DAILY TAZ - Patient Studies Lab Studies: Microbiology Studies 06/13/18 07:30 Blood Culture - Preliminary Blood-Venous NO GROWTH AFTER 24 HOURS 06/13/18 07:30 Blood Culture - Preliminary Blood-Venous NO GROWTH AFTER 24 HOURS Lab Studies 06/15/18 06/14/18 06/14/18 Range/Units 06:10 16:00 06:15 pCO2 27 L 25 L (35-45) mm/Hg pO2 81.0 102.0 H (80-100) mm/Hg HCO3 17.5 L 14.5 L (21-28) mmol/L ABG pH 7.42 7.37 (7.35-7.45) ABG Total CO2 18.3 L 15.3 L (22-28) mmol.L ABG O2 Saturation 99.1 H 99.5 H (95-98) % ABG O2 Content 12.4 L 13.7 L (15-23) ML/dl ABG Base Excess -6.0 L -9.4 L (-2.0-3.0) mmol/L ABG Hemoglobin 9.1 L 10.0 L (11.7-17.4) g/dL ABG Carboxyhemoglobin 2.1 H 2.1 H (0.5-1.5) % POC ABG HHb (Measured) 0.9 0.5 (0-5) % ABG Methemoglobin 0.6 1.5 (0.0-3.0) % ABG O2 Capacity 12.5 L 13.8 L (16-24) mL/dl Hgb O2 Saturation 96.4 95.9 (95.0-98.0) % FiO2 32.0 32.0 % Ammonia 16 (9-33) umol/L Laboratory Results - last 24 hr 06/14/18 06/14/18 06/15/18 06:15 16:00 06:10 pCO2 25 L 27 L pO2 102.0 H 81.0 HCO3 14.5 L 17.5 L ABG pH 7.37 7.42 ABG Total CO2 15.3 L 18.3 L ABG O2 Saturation 99.5 H 99.1 H ABG O2 Content 13.7 L 12.4 L ABG Base Excess -9.4 L -6.0 L ABG Hemoglobin 10.0 L 9.1 L ABG Carboxyhemoglobin 2.1 H 2.1 H POC ABG HHb (Measured) 0.5 0.9 ABG Methemoglobin 1.5 0.6 ABG O2 Capacity 13.8 L 12.5 L Hgb O2 Saturation 95.9 96.4 FiO2 32.0 32.0 Ammonia 16 Review of Systems - Review of Systems Systems not reviewed;Unavailable: Uncooperative Critical Care Progress Note - Extremities/Vascular Does the Patient have a Central Venous Catheter?: Yes Insertion Site: Femoral Vein Does the Patient need a Central Venous Catheter?: Yes Does the Patient have a Lane Catheter?: Yes Does the Patient need a Lane Catheter?: Yes Catheter Insertion Criteria: Need for accurate measurement of output in critically ill patient - Restraints Justification for Restraints: High risk for removing IV access - Prophylaxis GI Prophylaxis GI: PPI - Prophylaxis DVT Prophylaxis DVT: Heparin SQ, SCDs - Nutrition Nutrition: Nutrition Category Date Time Status Pureed [Dysphagia/Modified Consistency Diet] [DIET] Diets 06/13/18 Breakfast Ordered Assessment/Plan - Assessment and Plan (Free Text) Assessment: 62F with hx of COPD, breast cancer with mets s/p chemo/radiation (08/2017) and left lumpectomy, CKD (baseline Cr 2.6), HTN, bipolar disorder, depression admitted to the ICU for the second time this admission - this time for shock ( unclear etio). She was recently hospitalized this past May with acute on chronic renal failure, sob was tx inpatient and sent home. Did not do well at home, poor PO intake and incr SOB. Re-dmitted 06/06 directly to ICU for again sob and acute on chronic renal failure, severe sepsis. Stabilized with abx and IVF and transferrred to floors. Returned to ICU over this past weekend with hypotension , elec lac, sob, leukocytosis and worsening kidney function. Slight improvement in kidney function today. improved overall BP. Plan: General: Encourage discussion about code status considering metastatic disease and grave prognosis Neuro: drowsy, lethargic, refuses to speak when awake difficult to arouse, orientation not able to be assessed Cardio: - A line removed this AM due to poor wave form, BP stable on cuff readings - requiring levephedrine 10 mcg and Vasopressin 0.03 for BP control overnight, levo to be titrated down today if possible - Echo 06/12/18 shows normal EF. normal valve function, mild TR. - Hx of HTN. hold home irbesartan and bystolic in setting of low BP. - Monitor Pulm: - tapering steroids to 50mg Q12 today -hx of COPD (not on home O2). as per son, patient uses ventolin inhaler at home. Never a smoker. - continue duonebs and maintain O2 sats >90% -Verified with [facility] [place] pharmacy, patient was recently sent home on prednisone 20 mg PO BID (from recent [facility] [place] admission on 06/01/18 - patient was on IV steroids in hospital). -Xopenex prn, Prednisone 20 mg PO daily, will taper. -On 3L NC, saturating well, wean as tolerated - CT chest 06/06 shows moderate size right sided pleural effusion. Nodularity in both lung, indeterminate for malignancy, largest nodule is 1.3 cm (similar findings on chest CT on 05/2018). Mild diffuse subcutaneous edema in the lower abdomen and pelvis. Liver is heterogenous in appearance and appears to contain multiple mets. -- LE US negative for DVT, no right heart strain on echo; IVC compressible supporting hypovolemic shock differential GI: - HHD - Protonix. - increasing transaminitis - Gall bladder and liver US; negative except for collapsed GB - GI consulted for further evaluation Renal: - BUN/Cr 81/2.9 (baseline Cr 2.4) - Replace lytes, maintain euvolemia. - recieved dialysis today - Monitor ID: - femoral line obtained 06/13 d/t need for appropriate IV access to run pressors and abx - Tmax 100.8,+ leukocytosis stable - WBC 30.3 - CXR 06/14 no acute disease - CT chest 06/06 shows moderate size right sided pleural effusion. Nodularity in both lung, indeterminate for malignancy, largest nodule is 1.3 cm (similar findings on chest CT on 05/2018). - UA 06/13 difficult to assess d/t squamous cell contamination; WBC, leuk esterase and bacteria positive. - Blood and urine cultures negative to date - Port-a-cath placed 05/29/[address] Pino, flushing well. - abx: Merrem and doxycycline per ID - ID on board. Heme/ onc: - Hgb 9.2, platelets normal - continue to monitor DVT ppx: scds, Heparin GI ppx: protonix Case seen and discussed with Dr. Evonne Cid, PGY1 - Date & Time Date: 06/15/18 <Aniket Douglass - Last Filed: 06/15/18 12:10> CCU Objective - Vital Signs / Intake & Output Vital Signs (Last 4 hours): Vital Signs Temp Pulse Resp BP Pulse Ox 06/15/18 11:00 100.9 F H 107 H 06/15/18 10:46 100.9 F H 109 H 141/50 L 06/15/18 10:31 100.8 F H 120/95 H 94 L 06/15/18 10:23 100.8 F H 127/80 96 06/15/18 10:01 100.6 F H 110 H 132/70 91 L 06/15/18 10:00 100.6 F H 109 H 93 L 06/15/18 09:46 115/84 06/15/18 09:45 100.6 F H 107 H 95 06/15/18 09:32 135/62 06/15/18 09:31 100.4 F H 108 H 94 L 09/13/18 09:24 122/74 06/15/18 09:15 122/74 06/15/18 09:14 100.2 F H 106 H 94 L 06/15/18 09:00 100.2 F H 105 H 95 06/15/18 08:47 135/100 H 06/15/18 08:46 100.2 F H 104 H 95 06/15/18 08:31 125/75 06/15/18 08:30 100.2 F H 103 H 93 L 06/15/18 08:16 100.2 F H 104 H 50 H 102/73 97 Intake and Output (Last 8hrs): Intake & Output 06/14/18 06/15/18 06/15/18 22:59 06:59 14:59 Intake Total 1633 845 325 Output Total 500 100 Balance 1133 745 325 Weight 297 lb 3.2 oz Intake: IV 1433 795 325 Dopamine 0 IVPB 300 150 Left femoral 0 Levophed 500 400 Vasopressin 125 145 venous port 100 Oral 200 50 Output: Urine 0 100 2-way Urethral 0 100 Other 500 Other: Voiding Method Indwelling Catheter Indwelling Catheter # Bowel Movements 0 1 - Medications Active Medications: Active Medications Generic Name Dose Route Start Last Admin Trade Name Freq PRN Reason Stop Dose Admin Albumin Human 12.5 gm 06/13/18 12:45 06/15/18 04:49 Albumin Human 25% (12.5 Gm/50 Ml) IV 12.5 gm Q8H TAZ Administration Benzocaine/Menthol 1 rosey 06/10/18 18:45 Cepacol Sore Throat MT Q2H PRN Sore Throat Budesonide 0.5 mg 06/11/18 20:00 06/15/18 07:45 Pulmicort Respules IH 0.5 mg [id number] TAZ Administration Docusate Sodium 200 mg 06/10/18 12:00 06/15/18 09:23 Colace PO Not Given DAILY TAZ Famotidine 20 mg 06/15/18 22:00 Pepcid PO HS TAZ Heparin Sodium (Porcine) 5,000 units 06/08/18 22:00 06/15/18 09:31 Heparin SC 5,000 units Q12 TAZ Administration Protocol Hydrocortisone Sodium Succinate 50 mg 06/15/18 10:00 06/15/18 09:31 Solu-Cortef IVP 50 mg Q12 TAZ Administration Meropenem 500 mg/ Sodium 50 mls @ 100 mls/hr 06/12/18 22:00 06/15/18 09:21 Chloride IVPB 06/17/18 22:01 100 mls/hr Q12 TAZ Administration Protocol Doxycycline Hyclate 100 mg/ 100 mls @ 100 mls/hr 06/12/18 22:00 06/15/18 09: 22 Sodium Chloride IVPB 100 mls/hr Q12 TAZ Administration Protocol Norepinephrine Bitartrate 8 mg 508 mls @ 15.24 mls/hr 06/13/18 08:54 09:45 / Sodium Chloride IV 2 mcg/min .Q24H PRN 7.62 mls/hr TITRATE PER MD ORDER Titration Protocol 4 MCG/MIN Vasopressin 20 units/ Sodium 101 mls @ 9.09 mls/hr 06/15/18 11:31 Chloride IV .Q11H7M TAZ Protocol 0.03 U/MIN Levalbuterol HCl 1.25 mg 06/07/18 02:00 06/15/18 07:45 Xopenex IH 1.25 mg [id number] TAZ Administration Lidocaine HCl 15 ml 06/10/18 18:43 06/10/18 18:51 Lidocaine 2% Viscous PO 15 ml Q3H PRN Administration Sore Throat Lorazepam 1 mg 06/09/18 18:15 06/11/18 23:48 Ativan PO 1 mg TID PRN Administration anxiety/agitation Protocol Olanzapine 2.5 mg 06/13/18 16:39 Zyprexa PO DAILY PRN agitation/psychosis Protocol Polyethylene Glycol 17 gm 06/10/18 12:00 06/15/18 09:23 Miralax PO Not Given DAILY TAZ Tiotropium [place] 18 mcg 06/14/18 15:45 06/15/18 09:32 Spiriva IH 18 mcg DAILY TAZ Administration - Patient Studies Lab Studies: Microbiology Studies 06/13/18 07:30 Blood Culture - Preliminary Blood-Venous NO GROWTH AFTER 48 HOURS 06/13/18 07:30 Blood Culture - Preliminary Blood-Venous NO GROWTH AFTER 48 HOURS Lab Studies 06/15/18 06/15/18 06/15/18 Range/Units 06:15 06:15 06:15 WBC 30.3 H* (4.5-11.0) 10^3/ul RBC 3.72 (3.5-6.1) 10^6/uL Hgb 9.2 L (12.0-16.0) g/dL Hct 28.7 L (36.0-48.0) % MCV 77.2 L (80.0-105.0) fl MCH 24.7 L (25.0-35.0) pg MCHC 32.1 (31.0-37.0) g/dl RDW 19.9 H (11.5-14.5) % Plt Count 92 L (120.0-450.0) 10^3/uL Gran % 80.1 H (50.0-68.0) % Lymph % (Auto) 16.6 L (22.0-35.0) % [place] % (Auto) 2.7 (1.0-6.0) % Eos % (Auto) 0.3 L (1.5-5.0) % Baso % (Auto) 0.3 (0.0-3.0) % Gran # 24.30 H (1.4-6.5) Lymph # (Auto) 5.0 H (1.2-3.4) [place] # (Auto) 0.8 H (0.1-0.6) Eos # (Auto) 0.1 (0.0-0.7) Baso # (Auto) 0.08 (0.0-2.0) K/mm3 Corrected WBC (Man) 26.8 H (4.5-11.0) K/mm3 Neutrophils % (Manual) 81 H (50.0-70.0) % Band Neutrophils % 3 H (0-2) % Lymphocytes % (Manual) 9 L (22.0-35.0) % Monocytes % (Manual) 7 H (1.0-6.0) % Nucleated RBC % 13 % pCO2 (35-45) mm/Hg pO2 (80-100) mm/Hg HCO3 (21-28) mmol/L ABG pH (7.35-7.45) ABG Total CO2 (22-28) mmol.L ABG O2 Saturation (95-98) % ABG O2 Content (15-23) ML/dl ABG Base Excess (-2.0-3.0) mmol/L ABG Hemoglobin (11.7-17.4) g/dL ABG Carboxyhemoglobin (0.5-1.5) % POC ABG HHb (Measured) (0-5) % ABG Methemoglobin (0.0-3.0) % ABG O2 Capacity (16-24) mL/dl Hgb O2 Saturation (95.0-98.0) % FiO2 % Sodium 139 (132-148) mmol/L Potassium 4.4 (3.6-5.0) mmol/L Chloride 105 (98-107) mmol/L Carbon Dioxide 20 L (21-33) mmol/L Anion Gap 19 (10-20) BUN 81 H (7-21) mg/dL Creatinine 2.9 H (0.7-1.2) mg/dl Est GFR ( Amer) 20 Est GFR (Non-Af Amer) 16 Random Glucose 149 H (70-110) mg/dL Calcium 8.0 L (8.4-10.5) mg/dL Phosphorus 6.9 H (2.5-4.5) mg/dL Magnesium 2.4 H (1.7-2.2) mg/dL Total Bilirubin 4.3 H (0.2-1.3) mg/dL Direct Bilirubin 3.4 H (0.0-0.4) mg/dL AST 631 H D (14-36) U/L ALT 103 H (7-56) U/L Alkaline Phosphatase 807 H (38-126) U/L Ammonia (9-33) umol/L Total Protein 5.2 L (5.8-8.3) g/dL Albumin 2.7 L (3.0-4.8) g/dL Globulin 2.5 gm/dL Albumin/Globulin Ratio 1.1 (1.1-1.8) 06/15/18 06/14/18 Range/Units 06:10 16:00 WBC (4.5-11.0) 10^3/ul RBC (3.5-6.1) 10^6/uL Hgb (12.0-16.0) g/dL Hct (36.0-48.0) % MCV (80.0-105.0) fl MCH (25.0-35.0) pg MCHC (31.0-37.0) g/dl RDW (11.5-14.5) % Plt Count (120.0-450.0) 10^3/uL Gran % (50.0-68.0) % Lymph % (Auto) (22.0-35.0) % [place] % (Auto) (1.0-6.0) % Eos % (Auto) (1.5-5.0) % Baso % (Auto) (0.0-3.0) % Gran # (1.4-6.5) Lymph # (Auto) (1.2-3.4) [place] # (Auto) (0.1-0.6) Eos # (Auto) (0.0-0.7) Baso # (Auto) (0.0-2.0) K/mm3 Corrected WBC (Man) (4.5-11.0) K/mm3 Neutrophils % (Manual) (50.0-70.0) % Band Neutrophils % (0-2) % Lymphocytes % (Manual) (22.0-35.0) % Monocytes % (Manual) (1.0-6.0) % Nucleated RBC % % pCO2 27 L (35-45) mm/Hg pO2 81.0 (80-100) mm/Hg HCO3 17.5 L (21-28) mmol/L ABG pH 7.42 (7.35-7.45) ABG Total CO2 18.3 L (22-28) mmol.L ABG O2 Saturation 99.1 H (95-98) % ABG O2 Content 12.4 L (15-23) ML/dl ABG Base Excess -6.0 L (-2.0-3.0) mmol/L ABG Hemoglobin 9.1 L (11.7-17.4) g/dL ABG Carboxyhemoglobin 2.1 H (0.5-1.5) % POC ABG HHb (Measured) 0.9 (0-5) % ABG Methemoglobin 0.6 (0.0-3.0) % ABG O2 Capacity 12.5 L (16-24) mL/dl Hgb O2 Saturation 96.4 (95.0-98.0) % FiO2 32.0 % Sodium (132-148) mmol/L Potassium (3.6-5.0) mmol/L Chloride (98-107) mmol/L Carbon Dioxide (21-33) mmol/L Anion Gap (10-20) BUN (7-21) mg/dL Creatinine (0.7-1.2) mg/dl Est GFR ( Amer) Est GFR (Non-Af Amer) Random Glucose (70-110) mg/dL Calcium (8.4-10.5) mg/dL Phosphorus (2.5-4.5) mg/dL Magnesium (1.7-2.2) mg/dL Total Bilirubin (0.2-1.3) mg/dL Direct Bilirubin (0.0-0.4) mg/dL AST (14-36) U/L ALT (7-56) U/L Alkaline Phosphatase (38-126) U/L Ammonia 16 (9-33) umol/L Total Protein (5.8-8.3) g/dL Albumin (3.0-4.8) g/dL Globulin gm/dL Albumin/Globulin Ratio (1.1-1.8) Laboratory Results - last 24 hr 06/14/18 06/15/18 06/15/18 16:00 06:10 06:15 WBC 30.3 H* RBC 3.72 Hgb 9.2 L Hct 28.7 L MCV 77.2 L MCH 24.7 L MCHC 32.1 RDW 19.9 H Plt Count 92 L Gran % 80.1 H Lymph % (Auto) 16.6 L [place] % (Auto) 2.7 Eos % (Auto) 0.3 L Baso % (Auto) 0.3 Gran # 24.30 H Lymph # (Auto) 5.0 H [place] # (Auto) 0.8 H Eos # (Auto) 0.1 Baso # (Auto) 0.08 Corrected WBC (Man) 26.8 H Neutrophils % (Manual) 81 H Band Neutrophils % 3 H Lymphocytes % (Manual) 9 L Monocytes % (Manual) 7 H Nucleated RBC % 13 pCO2 27 L pO2 81.0 HCO3 17.5 L ABG pH 7.42 ABG Total CO2 18.3 L ABG O2 Saturation 99.1 H ABG O2 Content 12.4 L ABG Base Excess -6.0 L ABG Hemoglobin 9.1 L ABG Carboxyhemoglobin 2.1 H POC ABG HHb (Measured) 0.9 ABG Methemoglobin 0.6 ABG O2 Capacity 12.5 L Hgb O2 Saturation 96.4 FiO2 32.0 Sodium Potassium Chloride Carbon Dioxide Anion Gap BUN Creatinine Est GFR ( Amer) Est GFR (Non-Af Amer) Random Glucose Calcium Phosphorus Magnesium Total Bilirubin Direct Bilirubin AST ALT Alkaline Phosphatase Ammonia 16 Total Protein Albumin Globulin Albumin/Globulin Ratio 06/15/18 06/15/18 06:15 06:15 WBC RBC Hgb Hct MCV MCH MCHC RDW Plt Count Gran % Lymph % (Auto) [place] % (Auto) Eos % (Auto) Baso % (Auto) Gran # Lymph # (Auto) [place] # (Auto) Eos # (Auto) Baso # (Auto) Corrected WBC (Man) Neutrophils % (Manual) Band Neutrophils % Lymphocytes % (Manual) Monocytes % (Manual) Nucleated RBC % pCO2 pO2 HCO3 ABG pH ABG Total CO2 ABG O2 Saturation ABG O2 Content ABG Base Excess ABG Hemoglobin ABG Carboxyhemoglobin POC ABG HHb (Measured) ABG Methemoglobin ABG O2 Capacity Hgb O2 Saturation FiO2 Sodium 139 Potassium 4.4 Chloride 105 Carbon Dioxide 20 L Anion Gap 19 BUN 81 H Creatinine 2.9 H Est GFR ( Amer) 20 Est GFR (Non-Af Amer) 16 Random Glucose 149 H Calcium 8.0 L Phosphorus 6.9 H Magnesium 2.4 H Total Bilirubin 4.3 H Direct Bilirubin 3.4 H AST 631 H D ALT 103 H Alkaline Phosphatase 807 H Ammonia Total Protein 5.2 L Albumin 2.7 L Globulin 2.5 Albumin/Globulin Ratio 1.1 Critical Care Progress Note - Nutrition Nutrition: Nutrition Category Date Time Status Pureed [Dysphagia/Modified Consistency Diet] [DIET] Diets 06/13/18 Breakfast Ordered Assessment/Plan - Assessment and Plan (Free Text) Plan: Patient seen and examined on rounds, with resident, agree with note with following additions/exceptions: 62 year old female with PMH COPD, breast cancer with mets s/p chemo/radiation ( 08/2017) and left lumpectomy, CKD (baseline Cr 2.6), HTN, bipolar disorder, depression, HLD, gout, re-admitted to MICU for shock, unclear etiology, renal failure, dehydration Currently afebrile, BP stable, comfortable in NAD, awake, follows simple commands Remains on vasopressor support, Levophed, Vasopressin. Labs, imaging, chart reviewed. On HD, renal following. Shock, rule out septic shock Renal failure, on HD Leukocytosis Breast Ca with mets COPD Recommend: - supp o2 as needed, Duonebs PRN, IS - cont with Abx as per ID, Merrem, Vanco, Doxy - Vasopressor support, Levophed, Vasopressin, Stress dose steroids, goal MAP 65 - HD as per renal - follow up ID, renal - follow up heme onc - consider palliative care consult - GI ppx - DVT ppx - Monitor in MICU Critical care time 40 minutes
[2018-06-15 07:25] LABS: WHITE BLOOD COUNT 30.3 10^3/ul (4.5-11.0)
[2018-06-15] MEDS: Budesonide 0.5 mg/2 ml Inhal Susp UD IH SCH ×3 (07:36→19:53)
[2018-06-15 08:02] LABS: ALB/GLOB RATIO 1.1 (1.1-1.8); ALBUMIN 2.7 g/dL (3.0-4.8); BILIRUBIN,DIRECT 3.4 mg/dL (0.0-0.4)
[2018-06-15] MEDS: Meropenem 500 MG in Sodium Chloride 0.9% 50 ML IVPB SCH ×2 (09:21→21:45)
[2018-06-15] MEDS: POLYETHYLENE GLYCOL 3350 17 GM/Dose PACKET PO SCH (09:23)
[2018-06-15] MEDS: Tiotropium 18 mcg Cap For Inhalation IH SCH (09:32)
[2018-06-15 10:39] LABS: BAND 3 % (0-2); CORRECTED WBC 26.8 K/mm3 (4.5-11.0); LYMPHOCYTE 9 % (22.0-35.0); MONOCYTE 7 % (1.0-6.0); NEUTROPHIL 81 % (50.0-70.0); NUCLEATED RED BLOOD CELL 13 %
--- NOTE | 2018-06-15 14:39 | PN ---
DATE: 06/15/2018 SUBJECTIVE: The patient is 62 years old. Admitted with increasing shortness of breath, history of metastatic lung cancer. Came in with acute renal failure and leukocytosis. Will get dialysis around 1 o'clock today. Seems to be short of breath. PHYSICAL EXAMINATION: VITAL SIGNS: Temperature of 100.9, pulse 107, respirations 50, blood pressure 92/60. LUNGS: Bilateral fair airflow. No rhonchi or crackle. She is tachypneic with shallow breathing. EXTREMITIES: Bilateral legs, +4 edema. NEUROLOGICAL: She is sleepy, but arousable. LABORATORY EXAM: WBC 30.3, hemoglobin 9.2, hematocrit 28.7, platelet of 92. Chemistry: Sodium 139, potassium 4.4, chloride 105, CO2 of 20, BUN 81, creatinine 2.9, blood sugar of 149, phosphorus 6.9, total bili 3.4, AST 631, ALT 103, alk phos . Blood culture, urine cultures were negative. ASSESSMENT: 1. Acute renal failure, status post dialysis that was done yesterday and today. 2. Metastatic breast cancer. 3. History of hypertension, currently running hypotensive. 4. History of bipolar disorder. 5. Leukocytosis, etiology is still unclear for leukocytosis. PLAN: Currently, the patient is on albumin. She is on small dose of vasopressor. We will get dialysis after that. She might be tapered down from her pressors. We will continue her current antibiotic. She is on IV steroid. She is on meropenem and doxycycline. Continue nebulizer treatment. We will follow up. Jessica Flores MD
--- NOTE | 2018-06-15 14:41 | PN ---
DATE: 06/15/2018 REASON FOR CONSULTATION: Followup shortness of breath, hypotension, moved to ICU, awake and alert, status post dialysis, waiting for dialysis today. Family is at the bedside. SUBJECTIVE: Patient denies any chest pain, shortness of breath, any palpitations. Family is at the bedside. OBJECTIVE: GENERAL: Not in apparent distress, still on vasopressor. VITAL SIGNS: Temperature low grade fever of 100.2, heart rate 99, blood pressure 122/74. HEENT: PERRLA. Extraocular muscles intact. NECK: Supple. No carotid bruits or thyromegaly. CHEST: Clear to auscultation. HEART: S1, S2 regular. ABDOMEN: Soft. EXTREMITIES: Clubbing and cyanosis negative. 2+ pedal edema. LABORATORY DATA: Blood workup as follows: WBC 10.3, hemoglobin 9.8, hematocrit 28.7, platelet count 92. Chemistry show sodium 139, potassium 3.4, chloride 105, carbon dioxide 20, anion gap of 19, BUN 80, creatinine 2.9, phosphorous 6.9, magnesium 2.4, total bilirubin 4.3, direct bilirubin 3.4, AST 631, ALT 103, total protein 5.2, albumin 2.7. IMPRESSION: 1. Protein-calorie malnutrition, which was present since admission. 2. Leukocytosis. 3. Acute kidney injury, chronic renal insufficiency, started on dialysis. 4. Morbid obesity. 5. Breast carcinoma with metastasis. 6. Shortness of breath, multifactorial. 7. Obesity. 8. Fluid overload. 9. Congestive heart failure. 10. Kidney injury. 11. The overall echo shows preserved left ventricular function. Most recent echocardiogram repeated the day before yesterday shows ejection fraction of 65%. No aortic regurgitation, trace mitral regurgitation, mild to moderate tricuspid regurgitation. No pericardial effusion. Right ventricular systolic pressure of 42. RECOMMENDATIONS: Continue dialysis as tolerated. Try to wean off the vasopressors as blood pressure is tolerated. Continue DVT prophylaxis. Patient is started on IV albumin. We will continue IV albumin to increase plasma osmotic pressure and increase the blood pressure, so the patient can get more fluid can be pulled from dialysis. Discussed with the family. Overall patient's condition is critical. Long-term prognosis is extremely guarded. Dee Mar MD [facility] # [id number]
--- NOTE | 2018-06-15 15:40 | PN ---
DATE: 06/15/2018 SUBJECTIVE: The patient is in bed, seen early in 129, bed 2. Continues to have fever of 100.9. PHYSICAL EXAMINATION: VITAL SIGNS: Temperature is 100.9, blood pressure is 92/60, respiratory rate of 18, heart rate of 109. HEENT: Unremarkable. NECK: Supple. LUNGS: Have decreased breath sounds. HEART: Normal S1, S2. ABDOMINAL: Soft, nontender. No organomegaly. No rebound. No guarding. No masses. LABORATORY EXAMINATION: Reveals the patient's white count is 30,000, hemoglobin of 9, platelets of 92. Coagulation is noted. Chemistries reveals a BUN of 81, creatinine of 2.9. AST and ALT is elevated. Urinalysis is noted. Vancomycin levels are noted. Microbiology reveals cultures are negative. Review of orders reveals the patient to be on doxycycline and meropenem. The nasal MRSA screen is negative. ASSESSMENT AND PLAN: A 62-year-old female with sepsis, bilateral healthcare-associated pneumonia, morbid obesity, BMI of 47, chronic obstructive lung disease, depression, chronic renal failure, breast cancer with metastases status post chemotherapy. Day #4 of meropenem and doxycycline. Still with fevers, negative cultures. The patient had a gallbladder ultrasound. Acute collapsed gallbladder. Gallbladder wall thickness. Common bile duct normal measure in size, perihepatic ascites. Chest x-ray, no active lung disease. Overall prognosis is quite poor. We will follow with you. Blake Dias MD
--- NOTE | 2018-06-16 00:22 | PN ---
DATE: 06/15/2018 PULMONARY CRITICAL CARE PROGRESS NOTE REFERRING PHYSICIAN: Dr. Flores SUBJECTIVE: She is lying in the bed, head at 45 degrees, receiving oxygen through the nasal cannula, just finished off her dialysis, was taken out about a liter of fluid which she has tolerated much better today. Blood pressure was acceptable, still on vaso and Levophed, arousable. Follows simple commands. Short of breath, minimal exertion. No chest pain. No abdominal pain. No diarrhea. Does have upper and lower extremity swelling. PHYSICAL EXAMINATION: GENERAL: No acute distress. VITAL SIGNS: Temperature is 98, heart rate 109, respiratory rate is 25, blood pressure is 120/70, pulse ox 94% on nasal cannula. HEENT: Moist mucous membranes, crowded airway. Mallampati score is 4. NECK: Short thick neck. LUNGS: Poor effort. HEART: S1 and S2. ABDOMEN: Soft and nontender, nondistended. EXTREMITIES: Does have edema of the upper and lower extremity. NEUROLOGICAL: Sleepy, arousable MEDICATIONS: She is on albumin 25% IV every 8 hours, lorazepam 1 mg IV every 8 hours p.r.n., Cepacol lozenges every 2 hours p.r.n., Colace 200 mg daily, doxycycline 100 mg twice a day, heparin 5000 units subq every 12 hours, lidocaine viscous to affected areas every 3 hours, meropenem 500 every 12 hours, MiraLax 17 g p.o. daily, Levophed is on board, Pepcid 20 mg at bedtime, Pulmicort inhaled twice a day, Solu-Cortef 40 mg twice a day, Spiriva inhaled daily, vasopressin is on board, Xopenex inhaled every 6 hours, Zyprexa 2.5 mg daily. LABORATORY DATA: Shows hemoglobin 9.2, hematocrit 28.7, WBC 30,000, platelet is 92. ABG this morning showed pH 7.42, pCO2 27, O2 81 that is on nasal cannula. Sodium 139, potassium 4.4, chloride 105, bicarbonate 20, BUN 81, creatinine 2.9, glucose 149, calcium is 8, phosphorous 6.9, magnesium 2.4, total bilirubin is 4.3, direct bilirubin is 3.4. AST 631, ALT 103, alk phos is 807, albumin is 2.7. Microbiology: Urine Lane has a yeast. IMPRESSION AND PLAN: Metastatic breast cancer involving the lungs and liver, acute renal failure presently on dialysis, anasarca, severe hypotension, requiring multiple pressors, tapped dose of Solu-Cortef, bipolar disorder and yeast in the urine. Pulmonary point of view doing okay. Continue supplement oxygen. Keep head at 45 degrees. Careful with sedation. Antibiotics as per Infectious Disease, Manager Cable followup, also getting Nephrology followup. Spoke to the patient's son at bedside. All the questions answered. She also had gallbladder ultrasound done today which shows hepatomegaly, hepatic steatosis without focal abnormality, low volume ascites, otherwise unremarkable, limited exam. We will order labs in the morning. Critical care time more than 35 minutes. Thank you and we will follow with you. Dee German MD
[2018-06-16] MEDS: Levalbuterol 1.25 MG/3 ML Inhal Soln UD IH SCH ×4 (01:16→20:07)
[2018-06-16] MEDS: Albumin Human 25% (12.5 gm/50 ml) IV SCH ×3 (05:04→20:58)
[2018-06-16] MEDS: Norepinephrine 8 MG in Sodium Chloride 0.9% 500 ML IV PRN ×2 (05:10→21:00)
[2018-06-16 06:40] LABS: HEMOGLOBIN 8.9 g/dL (12.0-16.0); MEAN CELL VOLUME 77.6 fl (80.0-105.0); MEAN CORPUSCULAR HEMOGLOBIN 24.6 pg (25.0-35.0); MEAN CORPUSCULAR HGB CONC 31.7 g/dl (31.0-37.0); PLATELET COUNT 84 10^3/uL (120.0-450.0); RBC 3.62 10^6/uL (3.5-6.1); RED CELL DISTRIBUTION WIDTH 20.1 % (11.5-14.5)
[2018-06-16 06:54] LABS: WHITE BLOOD COUNT 45.3 10^3/ul (4.5-11.0)
[2018-06-16 07:11] LABS: ALB/GLOB RATIO 1.2 (1.1-1.8); ALBUMIN 2.9 g/dL (3.0-4.8); CALCIUM 8.1 mg/dL (8.4-10.5)
[2018-06-16] MEDS: Budesonide 0.5 mg/2 ml Inhal Susp UD IH SCH ×2 (07:43→20:07)
--- NOTE | 2018-06-16 08:21 | PN ---
DATE: 06/15/2018 SUBJECTIVE: The patient is seen lying in bed. She is awake. She is alert. She appears much more icteric. She is currently receiving dialysis. She seems to be hemodynamically somewhat improved. She still remains on Levophed and vasopressin. Current blood pressure is 113/58. She is still febrile. Temperature is 100.9. Remains oliguric. Urine output has been only 100 mL overnight. PHYSICAL EXAMINATION: GENERAL: Morbidly obese elderly lady, lying in the bed in the ICU. VITAL SIGNS: Blood pressure 113/81, heart rate 100, respiratory rate 24, temperature 100.9. HEENT: Normocephalic, atraumatic, positive pallor, positive icterus. NECK: Supple, no JVD. LUNGS: Bilateral equal entry, bilateral equal expansion. No rales or rhonchi appreciated anteriorly. CARDIAC: S1, S2. Regular rate and rhythm. No murmur, no rub. ABDOMEN: Obese, distended, soft, nontender. Bowel sounds present. EXTREMITIES: 2+ pitting edema of the lower extremities. INTAKE AND OUTPUT: 2986/600. LABORATORY DATA: WBC 30, hemoglobin 9, hematocrit 28.7, platelets 92. Sodium 139, potassium 4.4, chloride 105, CO2 of 20, BUN 81, creatinine 2.9, glucose 149, calcium 8, phosphorous 6.9, magnesium 2.4. Total bili 4.3. Direct bili 3.4. AST 631, ALT 103. Urine culture showing yeast. Gallbladder ultrasound showing hepatomegaly, hepatic steatosis without focal abnormality. CURRENT MEDICATIONS: Albumin 12.5 g every 8 hours, Ativan, benzocaine, Colace, doxycycline 100 every 12 hours, meropenem 100 every 12 hours, MiraLax 17 g, Levophed 4 mcg per minute, Pepcid, Pulmicort, hydrocortisone 50 every 12 hours, Spiriva, vasopressin 9 mL/hour, Xopenex, Zyprexa. ASSESSMENT: 1. Sepsis/systemic inflammatory response syndrome/hypotension/acidosis. 2. Acute kidney injury. 3. Acute liver failure, shock liver? 4. Anemia. 5. Thrombocytopenia. 6. Stage IV breast cancer with lung metastasis and liver metastasis. PLAN: 1. Continue empiric antibiotics. 2. Start antifungals? 3. Stable dialysis today, we will remove 1 kg. 4. We will likely require dialysis again tomorrow. 5. Remains critically ill with guarded prognosis. 6. Case discussed with son at bedside at length, case discussed with ICU staff, case discussed with dialysis nurse. More than 35 minutes spent in the care of this critically ill patient. Loreta Giron MD
--- NOTE | 2018-06-16 08:25 | RAD ---
Date of service: 06/16/2018 HISTORY: effusion COMPARISON: 06/14/2018 FINDINGS: LUNGS: No active pulmonary disease. PLEURA: No significant pleural effusion identified, no pneumothorax apparent. CARDIOVASCULAR: Mild cardiomegaly. Moderate vascular congestion. Small right-sided pleural effusion OSSEOUS STRUCTURES: No significant abnormalities. VISUALIZED UPPER ABDOMEN: Normal. OTHER FINDINGS: None. IMPRESSION: Increasing vascular congestion and small right-sided effusion
--- NOTE | 2018-06-16 08:38 | CP.CCUPN ---
<Mariel Cid - Last Filed: 06/16/18 12:53> CCU Subjective - Physician Review Subjective (Free Text): Patient seen and examined this AM at bedside. Tmax 100.9 overnight. Patient remains on levophedrine and vasopressin for BP support and O2NC. She is having diffi culty saturating appropriately and has been switched to a HFNC device. 06/16/18 08:36 CCU Objective - Vital Signs / Intake & Output Vital Signs (Last 4 hours): Vital Signs Pulse 06/16/18 06:00 105 H Intake and Output (Last 8hrs): Intake & Output 06/15/18 06/16/18 06/16/18 22:59 06:59 14:59 Intake Total 636 656 Output Total 1030 15 Balance -394 641 Intake: IV 466 656 Dopamine 0 IVPB 150 150 Left femoral 0 Levophed 166 183 Vasopressin 116 109 venous port 100 Oral 120 Albumin 50 Output: Urine 30 15 2-way Urethral 30 15 Other 1000 Other: # Bowel Movements 0 - Physical Exam Head: Positive for: Atraumatic Pupils: Positive for: PERRL Extroacular Muscles: Positive for: EOMI Conjunctiva: Positive for: Normal Mouth: Positive for: Moist Mucous Membranes Neck: Positive for: Normal Range of Motion Respiratory/Chest: Positive for: Good Air Exchange, Wheezes (bilateral expiratory wheeze), Tachypneic. Negative for: Clear to Auscultation, Respiratory Distress, Accessory Muscle Use, Tender to Palpation Cardiovascular: Positive for: Normal S1, S2 Abdomen: Positive for: Normal Bowel Sounds. Negative for: Tenderness, Rebound, Guarding Upper Extremity: Positive for: Edema, Normal ROM, Other (right wrist arterial line in place, poor wave form) Lower Extremity: Positive for: Normal Inspection, Edema, Other (left femoral vein central line in place, site is clean, sterile dressing intact). Negative for: CALF TENDERNESS, Tenderness, Deformity Neurological: Positive for: GCS=15, CN II-XII Intact Skin: Positive for: Warm, Dry, Normal Color Psychiatric: Positive for: Lethargic - Medications Active Medications: Active Medications Generic Name Dose Route Start Last Admin Trade Name Freq PRN Reason Stop Dose Admin Albumin Human 12.5 gm 06/13/18 12:45 06/16/18 05:04 Albumin Human 25% (12.5 Gm/50 Ml) IV 12.5 gm Q8H TAZ Administration Benzocaine/Menthol 1 rosey 06/10/18 18:45 Cepacol Sore Throat MT Q2H PRN Sore Throat Budesonide 0.5 mg 06/11/18 20:00 06/16/18 07:43 Pulmicort Respules IH 0.5 mg [id number] TAZ Administration Docusate Sodium 200 mg 06/10/18 12:00 06/15/18 09:23 Colace PO Not Given DAILY TAZ Famotidine 20 mg 06/15/18 22:00 06/15/18 21:45 Pepcid PO 20 mg HS TAZ Administration Heparin Sodium (Porcine) 5,000 units 06/08/18 22:00 06/15/18 21:44 Heparin SC 5,000 units Q12 TAZ Administration Protocol Hydrocortisone Sodium Succinate 50 mg 06/15/18 10:00 06/15/18 21:44 Solu-Cortef IVP 50 mg Q12 TAZ Administration Meropenem 500 mg/ Sodium 50 mls @ 100 mls/hr 06/12/18 22:00 06/15/18 21:45 Chloride IVPB 06/17/18 22:01 100 mls/hr Q12 TAZ Administration Protocol Doxycycline Hyclate 100 mg/ 100 mls @ 100 mls/hr 06/12/18 22:00 06/15/18 21: 44 Sodium Chloride IVPB 100 mls/hr Q12 TAZ Administration Protocol Norepinephrine Bitartrate 8 mg 508 mls @ 15.24 mls/hr 06/13/18 08:54 05:10 / Sodium Chloride IV 4 mcg/min .Q24H PRN 15.24 mls/hr TITRATE PER MD ORDER Administration Protocol 4 MCG/MIN Vasopressin 20 units/ Sodium 101 mls @ 9.09 mls/hr 06/15/18 11:31 06/16/18 00 :30 Chloride IV 9.09 mls/hr .Q11H7M TAZ Administration Protocol 0.03 U/MIN Levalbuterol HCl 1.25 mg 06/07/18 02:00 06/16/18 07:43 Xopenex IH 1.25 mg [id number] TAZ Administration Lidocaine HCl 15 ml 06/10/18 18:43 06/10/18 18:51 Lidocaine 2% Viscous PO 15 ml Q3H PRN Administration Sore Throat Lorazepam 1 mg 06/09/18 18:15 06/11/18 23:48 Ativan PO 1 mg TID PRN Administration anxiety/agitation Protocol Olanzapine 2.5 mg 06/13/18 16:39 Zyprexa PO DAILY PRN agitation/psychosis Protocol Polyethylene Glycol 17 gm 06/10/18 12:00 06/15/18 09:23 Miralax PO Not Given DAILY TAZ Tiotropium Redbird 18 mcg 06/14/18 15:45 06/15/18 09:32 Spiriva IH 18 mcg DAILY TAZ Administration - Patient Studies Lab Studies: Microbiology Studies 06/13/18 07:30 Blood Culture - Preliminary Blood-Venous NO GROWTH AFTER 3 DAYS 06/13/18 07:30 Blood Culture - Preliminary Blood-Venous NO GROWTH AFTER 3 DAYS 06/13/18 23:16 Urine Culture - Final Urine,Lane Yeast Species Lab Studies 06/16/18 06/16/18 06/15/18 Range/Units 06:00 06:00 06:15 WBC 45.3 H* D (4.5-11.0) 10^3/ul RBC 3.62 (3.5-6.1) 10^6/uL Hgb 8.9 L (12.0-16.0) g/dL Hct 28.1 L (36.0-48.0) % MCV 77.6 L (80.0-105.0) fl MCH 24.6 L (25.0-35.0) pg MCHC 31.7 (31.0-37.0) g/dl RDW 20.1 H (11.5-14.5) % Plt Count 84 L (120.0-450.0) 10^3/uL Corrected WBC (Man) 26.8 H (4.5-11.0) K/mm3 Neutrophils % (Manual) 81 H (50.0-70.0) % Band Neutrophils % 3 H (0-2) % Lymphocytes % (Manual) 9 L (22.0-35.0) % Monocytes % (Manual) 7 H (1.0-6.0) % Nucleated RBC % 13 % Sodium 140 (132-148) mmol/L Potassium 4.3 (3.6-5.0) mmol/L Chloride 104 (98-107) mmol/L Carbon Dioxide 21 (21-33) mmol/L Anion Gap 19 (10-20) BUN 66 H (7-21) mg/dL Creatinine 2.8 H (0.7-1.2) mg/dl Est GFR ( Amer) 21 Est GFR (Non-Af Amer) 17 Random Glucose 129 H (70-110) mg/dL Calcium 8.1 L (8.4-10.5) mg/dL Total Bilirubin 5.6 H (0.2-1.3) mg/dL AST 480 H D (14-36) U/L ALT 85 H (7-56) U/L Alkaline Phosphatase 774 H (38-126) U/L Total Protein 5.3 L (5.8-8.3) g/dL Albumin 2.9 L (3.0-4.8) g/dL Globulin 2.4 gm/dL Albumin/Globulin Ratio 1.2 (1.1-1.8) Laboratory Results - last 24 hr 06/15/18 06/16/18 06/16/18 06:15 06:00 06:00 WBC 45.3 H* D RBC 3.62 Hgb 8.9 L Hct 28.1 L MCV 77.6 L MCH 24.6 L MCHC 31.7 RDW 20.1 H Plt Count 84 L Corrected WBC (Man) 26.8 H Neutrophils % (Manual) 81 H Band Neutrophils % 3 H Lymphocytes % (Manual) 9 L Monocytes % (Manual) 7 H Nucleated RBC % 13 Sodium 140 Potassium 4.3 Chloride 104 Carbon Dioxide 21 Anion Gap 19 BUN 66 H Creatinine 2.8 H Est GFR ( Amer) 21 Est GFR (Non-Af Amer) 17 Random Glucose 129 H Calcium 8.1 L Total Bilirubin 5.6 H AST 480 H D ALT 85 H Alkaline Phosphatase 774 H Total Protein 5.3 L Albumin 2.9 L Globulin 2.4 Albumin/Globulin Ratio 1.2 Review of Systems - Review of Systems Systems not reviewed;Unavailable: Altered Mental Status Critical Care Progress Note - Extremities/Vascular Does the Patient have a Central Venous Catheter?: Yes Insertion Site: Femoral Vein Does the Patient need a Central Venous Catheter?: Yes Does the Patient have a Lane Catheter?: Yes Does the Patient need a Lane Catheter?: Yes Catheter Insertion Criteria: Need for accurate measurement of output in critically ill patient - Restraints Justification for Restraints: High risk for removing IV access - Prophylaxis GI Prophylaxis GI: Pepsid - Prophylaxis DVT Prophylaxis DVT: Heparin SQ, SCDs - Nutrition Nutrition: Nutrition Category Date Time Status Pureed [Dysphagia/Modified Consistency Diet] [DIET] Diets 06/13/18 Breakfast Ordered Assessment/Plan - Assessment and Plan (Free Text) Assessment: 62F with hx of COPD, breast cancer with mets s/p chemo/radiation (08/2017) and left lumpectomy, CKD (baseline Cr 2.6), HTN, bipolar disorder, depression admitted to the ICU for the second time this admission - this time for shock ( unclear etio). She was recently hospitalized this past May with acute on chronic renal failure, sob was tx inpatient and sent home. Did not do well at home, poor PO intake and incr SOB. Re-dmitted 06/06 directly to ICU for again sob and acute on chronic renal failure, severe sepsis. Stabilized with abx and IVF and transferrred to floors. Returned to ICU over this past weekend with hypotension , elec lac, sob, leukocytosis and worsening kidney function. Slight improvement in kidney function today. improved overall BP. Plan: General: Encourage discussion about code status considering metastatic disease and grave prognosis Neuro: drowsy, lethargic, refuses to speak when awake difficult to arouse, orientation not able to be assessed Cardio: - BP very sensitive to changes in levophed dose overnight - requiring levephedrine 4 mcg and Vasopressin 0.03 for BP control overnight, levo to be titrated down today if possible - Echo 06/12/18 shows normal EF. normal valve function, mild TR. - Hx of HTN. hold home irbesartan and bystolic in setting of low BP. - Monitor Pulm: - worsening congestion on CXR likely d/t need for dialysis, will be dialyzed today - steroids to 50mg Q12 on 06/15, wean to 50mg daily today - hx of COPD (not on home O2). as per son, patient uses ventolin inhaler at home. Never a smoker. - continue duonebs and maintain O2 sats >90% -Verified with [facility] pharmacy, patient was recently sent home on prednisone 20 mg PO BID (from recent [facility] admission on 06/01/18 - patient was on IV steroids in hospital). -Xopenex prn, Prednisone 20 mg PO daily, will taper. -On 4L NC, saturating well, wean as tolerated - CT chest 06/06 shows moderate size right sided pleural effusion. Nodularity in both lung, indeterminate for malignancy, largest nodule is 1.3 cm (similar findings on chest CT on 05/2018). Mild diffuse subcutaneous edema in the lower abdomen and pelvis. Liver is heterogenous in appearance and appears to contain multiple mets. -- LE US negative for DVT, no right heart strain on echo; IVC compressible supporting hypovolemic shock differential GI: - HHD - Protonix. - improving transaminitis - Gall bladder and liver US; negative except for collapsed GB - GI consulted for further evaluation Renal: - BUN/Cr 66/2.8 (baseline Cr 2.4) - Replace lytes, maintain euvolemia. - to receive dialysis today - Monitor ID: - femoral line obtained 06/13 d/t need for appropriate IV access to run pressors and abx - Tmax 100.9,+ leukocytosis - WBC 45.3 - CXR 06/16 - CXR 06/14 no acute disease - CT chest 06/06 shows moderate size right sided pleural effusion. Nodularity in both lung, indeterminate for malignancy, largest nodule is 1.3 cm (similar findings on chest CT on 05/2018). - UA 06/13 difficult to assess d/t squamous cell contamination; WBC, leuk esterase and bacteria positive. - Urine culture growing yeast, abx per ID recommendations - Blood and urine cultures negative to date - Port-a-cath placed 05/29/[address] Pino, flushing well. - abx: Merrem and doxycycline per ID - ID on board. Heme/ onc: - Hgb 8.9, platelets normal - continue to monitor DVT ppx: scds, Heparin GI ppx: pepcid - Date & Time Date: 06/16/18 <Paulson,Bilal - Last Filed: 06/16/18 14:40> CCU Objective - Vital Signs / Intake & Output Vital Signs (Last 4 hours): Vital Signs BP 06/16/18 12:40 78/58 L Intake and Output (Last 8hrs): Intake & Output 06/15/18 06/16/18 06/16/18 22:59 06:59 14:59 Intake Total 636 656 183.68 Output Total 1030 15 Balance -394 641 183.68 Intake: IV 466 656 183.68 Dopamine 0 IVPB 150 150 Left femoral 0 Levophed 166 183 Vasopressin 116 109 venous port 100 Oral 120 Albumin 50 Output: Urine 30 15 2-way Urethral 30 15 Other 1000 Other: # Bowel Movements 0 - Medications Active Medications: Active Medications Generic Name Dose Route Start Last Admin Trade Name Freq PRN Reason Stop Dose Admin Albumin Human 12.5 gm 06/13/18 12:45 06/16/18 13:03 Albumin Human 25% (12.5 Gm/50 Ml) IV 12.5 gm Q8H TAZ Administration Benzocaine/Menthol 1 rosey 06/10/18 18:45 Cepacol Sore Throat MT Q2H PRN Sore Throat Budesonide 0.5 mg 06/11/18 20:00 06/16/18 07:43 Pulmicort Respules IH 0.5 mg [id number] TAZ Administration Docusate Sodium 200 mg 06/10/18 12:00 06/16/18 12:33 Colace PO Not Given DAILY TAZ Famotidine 20 mg 06/15/18 22:00 06/15/18 21:45 Pepcid PO 20 mg HS TAZ Administration Heparin Sodium (Porcine) 5,000 units 06/08/18 22:00 06/16/18 12:46 Heparin SC 5,000 units Q12 TAZ Administration Protocol Hydrocortisone Sodium Succinate 50 mg 06/16/18 10:00 06/16/18 12:46 Solu-Cortef IVP 50 mg DAILY TAZ Administration Meropenem 500 mg/ Sodium 50 mls @ 100 mls/hr 06/12/18 22:00 06/16/18 12:34 Chloride IVPB 06/17/18 22:01 100 mls/hr Q12 TAZ Administration Protocol Doxycycline Hyclate 100 mg/ 100 mls @ 100 mls/hr 06/12/18 22:00 06/16/18 12: 36 Sodium Chloride IVPB 100 mls/hr Q12 TAZ Administration Protocol Norepinephrine Bitartrate 8 mg 508 mls @ 15.24 mls/hr 06/13/18 08:54 13:41 / Sodium Chloride IV 12 mcg/min .Q24H PRN 45.72 mls/hr TITRATE PER MD ORDER Titration Protocol 4 MCG/MIN Vasopressin 20 units/ Sodium 101 mls @ 9.09 mls/hr 06/15/18 11:31 06/16/18 12 :40 Chloride IV 9.09 mls/hr .Q11H7M TAZ Administration Protocol 0.03 U/MIN Fentanyl Citrate 1,000 mcg in 100 mls @ 2 mls/hr 06/16/18 12:05 06/16/18 12: 25 Fentanyl Citrate/Sodium Chloride 1 Mg/100 Ml IV 20 mcg/hr .Q24H PRN 2 mls/hr TITRATE PER MD ORDER Administration Protocol 20 MCG/HR Micafungin Sodium 100 mg/ 100 mls @ 100 mls/hr 06/16/18 13:15 Sodium Chloride IV 06/23/18 13:16 DAILY TAZ Protocol Levalbuterol HCl 1.25 mg 06/07/18 02:00 06/16/18 13:14 Xopenex IH 1.25 mg [id number] TAZ Administration Lidocaine HCl 15 ml 06/10/18 18:43 06/10/18 18:51 Lidocaine 2% Viscous PO 15 ml Q3H PRN Administration Sore Throat Lorazepam 1 mg 06/09/18 18:15 06/11/18 23:48 Ativan PO 1 mg TID PRN Administration anxiety/agitation Protocol Olanzapine 2.5 mg 06/13/18 16:39 Zyprexa PO DAILY PRN agitation/psychosis Protocol Polyethylene Glycol 17 gm 06/10/18 12:00 06/16/18 12:37 Miralax PO Not Given DAILY TAZ Tiotropium Redbird 18 mcg 06/14/18 15:45 06/15/18 09:32 Spiriva IH 18 mcg DAILY TAZ Administration - Patient Studies Lab Studies: Microbiology Studies 06/13/18 07:30 Blood Culture - Preliminary Blood-Venous NO GROWTH AFTER 3 DAYS 06/13/18 07:30 Blood Culture - Preliminary Blood-Venous NO GROWTH AFTER 3 DAYS 06/13/18 23:16 Urine Culture - Final Urine,Lane Yeast Species Lab Studies 06/16/18 06/16/18 06/16/18 Range/Units 06:30 06:00 06:00 WBC 45.3 H* D (4.5-11.0) 10^3/ul RBC 3.62 (3.5-6.1) 10^6/uL Hgb 8.9 L (12.0-16.0) g/dL Hct 28.1 L (36.0-48.0) % MCV 77.6 L (80.0-105.0) fl MCH 24.6 L (25.0-35.0) pg MCHC 31.7 (31.0-37.0) g/dl RDW 20.1 H (11.5-14.5) % Plt Count 84 L (120.0-450.0) 10^3/uL Corrected WBC (Man) 30.4 H (4.5-11.0) K/mm3 Neutrophils % (Manual) 89 H (50.0-70.0) % Band Neutrophils % 2 (0-2) % Lymphocytes % (Manual) 2 L (22.0-35.0) % Atypical Lymphs % 1 H (0.0-0.0) % Monocytes % (Manual) 3 (1.0-6.0) % Eosinophils % (Manual) 2 (0.0-3.0) % Nucleated RBC % 49 % Platelet Evaluation Low (NORMAL) Hypochromasia Slight Poikilocytosis (manual Slight Anisocytosis (manual) 1+ Microcytosis (manual) 1+ Sodium 140 (132-148) mmol/L Potassium 4.3 (3.6-5.0) mmol/L Chloride 104 (98-107) mmol/L Carbon Dioxide 21 (21-33) mmol/L Anion Gap 19 (10-20) BUN 66 H (7-21) mg/dL Creatinine 2.8 H (0.7-1.2) mg/dl Est GFR ( Amer) 21 Est GFR (Non-Af Amer) 17 Random Glucose 129 H (70-110) mg/dL Calcium 8.1 L (8.4-10.5) mg/dL Total Bilirubin 5.6 H (0.2-1.3) mg/dL AST 480 H D (14-36) U/L ALT 85 H (7-56) U/L Alkaline Phosphatase 774 H (38-126) U/L Total Protein 5.3 L (5.8-8.3) g/dL Albumin 2.9 L (3.0-4.8) g/dL Globulin 2.4 gm/dL Albumin/Globulin Ratio 1.2 (1.1-1.8) Procalcitonin 41.20 H (0.19-0.49) NG/ML Laboratory Results - last 24 hr 06/16/18 06/16/18 06/16/18 06:00 06:00 06:30 WBC 45.3 H* D RBC 3.62 Hgb 8.9 L Hct 28.1 L MCV 77.6 L MCH 24.6 L MCHC 31.7 RDW 20.1 H Plt Count 84 L Corrected WBC (Man) 30.4 H Neutrophils % (Manual) 89 H Band Neutrophils % 2 Lymphocytes % (Manual) 2 L Atypical Lymphs % 1 H Monocytes % (Manual) 3 Eosinophils % (Manual) 2 Nucleated RBC % 49 Platelet Evaluation Low Hypochromasia Slight Poikilocytosis (manual Slight Anisocytosis (manual) 1+ Microcytosis (manual) 1+ Sodium 140 Potassium 4.3 Chloride 104 Carbon Dioxide 21 Anion Gap 19 BUN 66 H Creatinine 2.8 H Est GFR ( Amer) 21 Est GFR (Non-Af Amer) 17 Random Glucose 129 H Calcium 8.1 L Total Bilirubin 5.6 H AST 480 H D ALT 85 H Alkaline Phosphatase 774 H Total Protein 5.3 L Albumin 2.9 L Globulin 2.4 Albumin/Globulin Ratio 1.2 Procalcitonin 41.20 H Critical Care Progress Note - Nutrition Nutrition: Nutrition Category Date Time Status Pureed [Dysphagia/Modified Consistency Diet] [DIET] Diets 06/13/18 Breakfast Ordered Addendum Addendum: 06/16/18 14:36 ICU Attending Addendum: Patient seen and examined. Case reviewed on round with housestaff. Agree with resident note above with the following additions/exceptions: 62F with hx of COPD, breast cancer with mets s/p chemo/radiation (08/2017) and left lumpectomy, CKD (baseline Cr 2.6), HTN, bipolar disorder, depression admitted to the ICU for the second time this admission - this time for shock ( unclear etio). Shock is actually improving as she is almost off pressors however very lethargic this AM requiring 100% fio2 during HD. Her CXR shows pulm edema and I was hoping dialysis would help relieve her pulm congestion however she remained labored in breathing. Anesthesia called and intubated patient. Will f/ u ABG, unable to get prior to intubation. WBC rising, still on abx and neg cultures. Cont steroid taper HD as per renal cont duonebs poor prognosis Rest of care as noted above. Tim Paulson MD Switching Clerk Critical care time : 41 mins
[2018-06-16 09:02] LABS: ATYPICAL LYMPHOCYTE 1 % (0.0-0.0); BAND 2 % (0-2); EOSINOPHIL 2 % (0.0-3.0); LYMPHOCYTE 2 % (22.0-35.0); MONOCYTE 3 % (1.0-6.0); NEUTROPHIL 89 % (50.0-70.0)
[2018-06-16 09:03] LABS: ANISOCYTOSIS 1+; CORRECTED WBC 30.4 K/mm3 (4.5-11.0); HYPOCHROMIA SLIGHT; MICROCYTOSIS 1+; NUCLEATED RED BLOOD CELL 49 %; PLATELET ESTIMATE LOW (NORMAL); POIKILOCYTOSIS SLIGHT
[2018-06-16] MEDS ORDERED: Darbepoetin Alfa 100 mcg/ml Inj IVP ONE ×2 (10:29→18:10)
[2018-06-16] MEDS ORDERED: Etomidate 20 mg/10ml Inj IV ONE ×2 (11:43→12:47)
[2018-06-16] MEDS ORDERED: Etomidate 20 mg/10ml Inj IVP STA (11:44)
[2018-06-16] MEDS ORDERED: Rocuronium 10 mg/ml (5 ml) ONE (11:46)
--- NOTE | 2018-06-16 11:46 | PN ---
DATE: 06/16/2018 REASON FOR CONSULTATION AND FOLLOWUP: Shortness of breath, hypotension, moved to ICU,status post dialysis, low-grade fever. SUBJECTIVE: The patient denies any chest pain, but complaining of shivering. PHYSICAL EXAMINATION: GENERAL: Not in apparent distress. Family is at the bedside. VITAL SIGNS: Temperature 101.1, heart rate 105, blood pressure 110/80. HEENT: PERRLA. Extraocular muscles intact. NECK: Supple. No carotid bruits or thyromegaly. CHEST: Clear to auscultation. HEART: S1, S2 regular. ABDOMEN: Soft. EXTREMITIES: Clubbing and cyanosis negative. LABORATORY DATA: Blood workup as follows: WBC 45.3, hemoglobin 8.9, hematocrit 28.1, platelet count 84. Chemistry shows sodium 140, potassium 4.3, chloride 104, carbon dioxide 21, anion gap of 19, BUN 66, creatinine 2.8. IMPRESSION: A 62-year-old female with past medical history of breast cancer, morbid obesity, end-stage renal disease admitted with shortness of breath, acute kidney injury, protein-calorie malnutrition, leukocytosis, acute kidney injury, chronic renal insufficiency, morbid obesity, breast cancer with metastasis, shortness of breath, fluid overload, congestive heart failure. Recent echocardiogram shows preserved left ventricular function, ejection fraction 65%, no aortic regurgitation, trace mitral regurgitation, [id number] tricuspid regurgitation, no pericardial effusion, right ventricular systolic pressure of 42. RECOMMENDATIONS: Continue aggressive dialysis, broad-spectrum antibiotics and try to pull the fluid as much as possible as the blood pressure is tolerated. The patient is fluid overload. We will follow with you. Overall, the patient's condition is critical, long-term prognosis is guarded. Dee Mar MD
[2018-06-16] MEDS: Fentanyl 1000mcg/100ml NS 1,000 MCG/100 ML BAG IV PRN (12:25)
[2018-06-16] MEDS: Meropenem 500 MG in Sodium Chloride 0.9% 50 ML IVPB SCH ×2 (12:34→21:07)
[2018-06-16] MEDS: POLYETHYLENE GLYCOL 3350 17 GM/Dose PACKET PO SCH (12:37)
--- NOTE | 2018-06-16 13:13 | RAD ---
Date of service: 06/16/2018 HISTORY: ET TUBE PLACEMENT COMPARISON: No prior. FINDINGS: LUNGS: The endotracheal tube is at the level of the shonna. This does not extend into the right or left mainstem bronchus. The tube could be pulled back 2 cm for more optimal positioning. The nasogastric tube is in satisfactory position. PLEURA: No significant pleural effusion identified, no pneumothorax apparent. CARDIOVASCULAR: Normal. OSSEOUS STRUCTURES: No significant abnormalities. VISUALIZED UPPER ABDOMEN: Normal. OTHER FINDINGS: None. IMPRESSION: The endotracheal tube is at the level of the shonna. This does not extend into the right or left mainstem bronchus. The tube could be pulled back 2 cm for more optimal positioning. The nasogastric tube is in satisfactory position.
--- NOTE | 2018-06-16 13:34 | CP.PCM.PN ---
Subjective - Date & Time of Evaluation Date of Evaluation: 06/16/18 Time of Evaluation: 10:30 - Subjective Subjective: Still having tachypnea, still having fevers, feels weak, currently on dialysis. Objective - Vital Signs/Intake and Output Vital Signs (last 24 hours): Temp Pulse Resp BP Pulse Ox 100.9 F H 105 H 50 H 79/34 L 97 06/16/18 04:00 06/16/18 06:00 06/15/18 08:16 06/16/18 00:30 06/15/18 23:00 Intake and Output: 06/15/18 06/16/18 18:59 06:59 Intake Total 996 114 Output Total 1030 Balance -34 114 - Medications Medications: Current Medications Albumin Human (Albumin Human 25% (12.5 Gm/50 Ml)) 12.5 gm IV Q8H [facility] Last Admin: 06/16/18 05:04 Dose: 12.5 gm Benzocaine/Menthol (Cepacol Sore Throat) 1 rosey MT Q2H PRN PRN Reason: Sore Throat Budesonide (Pulmicort Respules) 0.5 mg IH [id number] [facility] Last Admin: 06/15/18 19:53 Dose: 0.5 mg Docusate Sodium (Colace) 200 mg PO DAILY [facility] Last Admin: 06/15/18 09:23 Dose: Not Given Famotidine (Pepcid) 20 mg PO HS [facility] Last Admin: 06/15/18 21:45 Dose: 20 mg Heparin Sodium (Porcine) (Heparin) 5,000 units SC Q12 TAZ PRN Reason: Protocol Last Admin: 06/15/18 21:44 Dose: 5,000 units Hydrocortisone Sodium Succinate (Solu-Cortef) 50 mg IVP Q12 [facility] Last Admin: 06/15/18 21:44 Dose: 50 mg Meropenem 500 mg/ Sodium (Chloride) 50 mls @ 100 mls/hr IVPB Q12 TAZ PRN Reason: Protocol Stop: 06/17/18 22:01 Last Admin: 06/15/18 21:45 Dose: 100 mls/hr Doxycycline Hyclate 100 mg/ (Sodium Chloride) 100 mls @ 100 mls/hr IVPB Q12 TAZ PRN Reason: Protocol Last Admin: 06/15/18 21:44 Dose: 100 mls/hr Norepinephrine Bitartrate 8 mg (/ Sodium Chloride) 508 mls @ 15.24 mls/hr IV .Q24H PRN; Protocol; 4 MCG/MIN PRN Reason: TITRATE PER MD ORDER Last Admin: 06/16/18 05:10 Dose: 4 mcg/min, 15.24 mls/hr Vasopressin 20 units/ Sodium (Chloride) 101 mls @ 9.09 mls/hr IV .Q11H7M TAZ; 0.03 U/MIN PRN Reason: Protocol Last Admin: 06/16/18 00:30 Dose: 9.09 mls/hr Levalbuterol HCl (Xopenex) 1.25 mg IH [id number] TAZ Last Admin: 06/16/18 01:16 Dose: 1.25 mg Lidocaine HCl (Lidocaine 2% Viscous) 15 ml PO Q3H PRN PRN Reason: Sore Throat Last Admin: 06/10/18 18:51 Dose: 15 ml Lorazepam (Ativan) 1 mg PO TID PRN; Protocol PRN Reason: anxiety/agitation Last Admin: 06/11/18 23:48 Dose: 1 mg Olanzapine (Zyprexa) 2.5 mg PO DAILY PRN; Protocol PRN Reason: agitation/psychosis Polyethylene Glycol (Miralax) 17 gm PO DAILY [facility] Last Admin: 06/15/18 09:23 Dose: Not Given Tiotropium [place] (Spiriva) 18 mcg IH DAILY [facility] Last Admin: 06/15/18 09:32 Dose: 18 mcg - Labs Labs: 06/16/18 06:00 06/15/18 06:15 PT 14.0 SECONDS (9.4-12.5) H 06/07/18 06:40 INR 1.21 06/07/18 06:40 APTT 27.5 Seconds (25.1-36.5) 06/09/18 06:45 - Constitutional Appears: Chronically Ill - Head Exam Head Exam: NORMAL INSPECTION - Respiratory Exam Respiratory Exam: Decreased Breath Sounds Additional comments: anterior chest wall port in place - Cardiovascular Exam Cardiovascular Exam: +S1, +S2 - GI/Abdominal Exam GI & Abdominal Exam: Soft. absent: Tenderness Assessment and Plan - Assessment and Plan (Free Text) Plan: Assessment probable sepsis from bilateral HCAP, R/O UTI with yeast associated with Lane catheter morbid obesity with BMI 47 HTN COPD depression with bipolar disorder chronic renal failure breast cancer with metastases S/P chemotherapy and radiation therapy S/P left lumpectomy Plan has had 5 days of Cefepime but patient still with tachypnea (which is multifactorial - pulmonary congestion, probable pneumonia) - continue Merrem and Doxycycline day 5; repeat septic work up showing yeast in the urine - asked nurse to remove Lane catheter and will start Mycamine patient now also on dialysis will continue to monitor clinically follow up Cardiology and Renal further recommendations overall prognosis is poor
[2018-06-16] MEDS: Micafungin 100 MG in Sodium Chloride 0.9% 100 ML IV SCH (14:57)
[2018-06-16] MEDS: Tiotropium 18 mcg Cap For Inhalation IH SCH (16:03)
[2018-06-16 16:42] LABS: ARTERIAL BLOOD GAS HCO3 17.5 mmol/L (21-28); ARTERIAL BLOOD GAS O2 CAPACITY 11.8 mL/dl (16-24); ARTERIAL BLOOD GAS O2 CONTENT 11.8 ML/dl (15-23); ARTERIAL BLOOD GAS O2 SAT 100.2 % (95-98); ARTERIAL BLOOD GAS PCO2 27 mm/Hg (35-45); ARTERIAL BLOOD GAS PH 7.42 (7.35-7.45); ARTERIAL BLOOD GAS TCO2 18.3 mmol.L (22-28)
--- NOTE | 2018-06-16 17:52 | PN ---
DATE: 06/16/2018 SUBJECTIVE: The patient is a 62-year-old, seen and examined. Family was at bedside. Resident note reviewed. Overnight events noted. The patient seems to be getting tired. She has shallow breathing, but tachypneic. Currently on high-flow oxygen, minimally responsive. Upon calling, she hardly opened her eyes. PHYSICAL EXAMINATION: VITAL SIGNS: She has temperature of 100.9, pulse 106, respiration 30, blood pressure 79/34. LUNGS: Bilateral poor respiratory effort. HEART: S1, S2 audible, tachycardic. ABDOMEN: Soft, obese, nontender. No rebound, no guarding. NEUROLOGIC: The patient is minimally responsive. LABORATORY DATA: WBC is 45.3, hemoglobin 8.9, hematocrit 28.1, platelets of 84. Chemistry: Sodium 140, potassium 4.3, chloride 104, CO2 21, BUN 66, creatinine 2.8, blood sugar of 129. Calcium 8.1. AST 480, ALT 85, ALP 774. X-ray chest shows increasing vascular congestion and small right pleural effusion. ASSESSMENT: 1. Respiratory failure. 2. Leukocytosis, etiology still unclear. She is only growing yeast in her urine, though her blood cultures are negative. X-ray chest negative for infiltrates. 3. Metastatic breast cancer. 4. Hypotension. 5. History of bipolar disorder. 6. Acute renal failure, on hemodialysis. PLAN: Currently, the patient is on two pressors. She is getting nebulizer treatment. She is empirically covered with broad-spectrum antibiotics. Family was at the bedside. All questions answered. Prognosis seems to be poor. They are not decided about DNR yet. Son, Benjamin, is waiting for his sister to come in and make final decision. Jessica Flores MD
--- NOTE | 2018-06-16 22:27 | PN ---
DATE: 06/16/2018 REFERRING PHYSICIAN: Dr. Flores. SUBJECTIVE: Overnight ventilated; endocrine respiratory failure requiring ventilator. Presently sedated, unresponsive. Family is at bedside. On high dose of pressors. Still having difficulty with getting the blood pressure. Normal ET tube secretion. No hemoptysis. No vomiting. No hematuria. Has anasarca. PHYSICAL EXAMINATION: GENERAL: Unresponsive, on ventilator. VITAL SIGNS: Temperature is 99, heart rate is 105, blood pressure is 90/60, pulse ox 100% on ventilator. HEENT: Moist mucous membrane. ET tube with normal secretion. Short thick neck. LUNGS: Scattered rhonchi. HEART: S1 and S2. ABDOMEN: Soft, nontender, nondistended. EXTREMITY: Has anasarca. NEUROLOGICAL: Unresponsive on ventilator. MEDICATIONS: She is on albumin 25% 12.5 g IV every 8 hours, lorazepam 1 mg three times a day p.r.n., Cepacol lozenges, also doxycycline 100 mg twice a day. She is on fentanyl, heparin 5000 units subq every 12 hours, lidocaine viscous to affected area, meropenem 500 mg every 12 hours, micafungin 100 mg daily, also getting Levophed, Pepcid 20 mg at bedtime, Pulmicort inhaled twice a day, Solu-Cortef 50 mg daily, Spiriva inhaled daily, vasopressin IV drip, Xopenex inhaled every 6 hours, Zyprexa 2.5 mg daily p.r.n. LABORATORY DATA: Shows hemoglobin 8.9, hematocrit 28.1, WBC 45,000, platelet count is 84. ABG showed pH 7.42, pCO2 is at 27, O2 is 289, this is on ventilator with 100% oxygen. Sodium 140, potassium 4.3, chloride 104, bicarbonate 21, BUN 66, creatinine 2.8, glucose 129, calcium 8.1, total bili 5.6, AST 480, ALT 85, alk phos is 774, albumin 2.9. Procalcitonin is 41. Microbiology: Urine has some yeast. Otherwise blood culture has been negative. Chest x-ray which was done after intubation shows endotracheal tubing at the level of shonna. Nasogastric tube is in satisfactory position. IMPRESSION AND PLAN: Respiratory failure, septic shock, metastatic breast cancer to the lungs and liver, renal failure, presently on dialysis, has anasarca, severe hypotension. Case discussed with the family at bedside. All their questions answered. Poor prognosis discussed with them. They expressed understanding. Also spoke to upholstery restorer, Dr. Tim Paulson, recommended to get a A-line to follow for pressors as well as new serial ABGs. May decrease FiO2 to 70% on ventilator. Continue broad spectrum antibiotics covering healthcare associated organisms including fungus. Gastric prophylaxis. Critical care time more than 35 minutes. Follow up labs in the morning. Thank you and we will follow with you. Dee German MD
[2018-06-17] MEDS: Levalbuterol 1.25 MG/3 ML Inhal Soln UD IH SCH ×4 (01:30→20:00)
[2018-06-17] MEDS: Albumin Human 25% (12.5 gm/50 ml) IV SCH ×3 (04:36→20:56)
[2018-06-17] MEDS: Fentanyl 1000mcg/100ml NS 1,000 MCG/100 ML BAG IV PRN ×2 (04:46→19:25)
[2018-06-17 05:46] LABS: ARTERIAL BLOOD GAS HCO3 21.6 mmol/L (21-28); ARTERIAL BLOOD GAS HEMOGLOBIN 7.8 g/dL (11.7-17.4); ARTERIAL BLOOD GAS O2 CAPACITY 11.1 mL/dl (16-24); ARTERIAL BLOOD GAS O2 CONTENT 11.1 ML/dl (15-23); ARTERIAL BLOOD GAS O2 SAT 100.2 % (95-98); ARTERIAL BLOOD GAS PCO2 40 mm/Hg (35-45); ARTERIAL BLOOD GAS PH 7.34 (7.35-7.45); ARTERIAL BLOOD GAS TCO2 22.8 mmol.L (22-28)
[2018-06-17 06:29] LABS: BASO # 0.19 K/mm3 (0.0-2.0); BASO % 0.4 % (0.0-3.0); MEAN CELL VOLUME 79.4 fl (80.0-105.0); MEAN CORPUSCULAR HEMOGLOBIN 24.3 pg (25.0-35.0); MEAN CORPUSCULAR HGB CONC 30.6 g/dl (31.0-37.0); PLATELET COUNT 72 10^3/uL (120.0-450.0); RBC 3.21 10^6/uL (3.5-6.1); RED CELL DISTRIBUTION WIDTH 20.5 % (11.5-14.5)
[2018-06-17 06:32] LABS: ALB/GLOB RATIO 1.2 (1.1-1.8); ALBUMIN 2.6 g/dL (3.0-4.8); CALCIUM 7.9 mg/dL (8.4-10.5)
[2018-06-17 06:35] LABS: HEMOGLOBIN 7.8 g/dL (12.0-16.0); WHITE BLOOD COUNT 46.4 10^3/ul (4.5-11.0)
[2018-06-17] MEDS: Budesonide 0.5 mg/2 ml Inhal Susp UD IH SCH ×2 (07:08→20:00)
--- NOTE | 2018-06-17 08:50 | PN ---
DATE: 06/17/2018 SUBJECTIVE: The patient is seen and examined at the bedside. She appears to be comfortable. She is on fentanyl for sedation. PHYSICAL EXAMINATION: VITAL SIGNS: She is on PRVC 400/14/5/40%. On that setting, blood pressure 111/38, oxygen saturation 98% on 40% FiO2, respiratory rate 16, end-tidal CO2 on the monitor 41, heart rate 76. Levophed 11 mcg per minute and vasopressin 0.03 units per minute. ENT: Head and neck atraumatic. LUNGS: Clear to auscultation bilaterally. HEART: Regular rate and rhythm. S1 and S2 normal. ABDOMEN: Soft, nontender and nondistended. MUSCULOSKELETAL: 2+ bilateral pedal and ankle edema. NEURO: The patient is sedated. SKIN: Moist. PSYCH: The patient is sedated. LABORATORY DATA: WBC 46.4, hemoglobin 7.8, platelet count 72. Sodium 140, potassium 3.9, chloride 103, carbon dioxide 22, BUN 69, creatinine 2.7 (the patient is on dialysis), glucose 119, phosphorus 7.4, AST 581, ALT 94, alkaline phosphatase 594, total bilirubin 6.5, procalcitonin 41.2. ABG today 7.34/40/186 (recorded as on 100% FIO2; however, unclear whether it is a mistake of recording). MEDICATIONS: Pulmicort, Colace, Pepcid, heparin, hydrocortisone 50 mg IV daily, Xopenex, Ativan p.r.n., meropenem, micafungin, norepinephrine, Zyprexa p.r.n., Spiriva, vasopressin. ASSESSMENT AND PLAN: This is a 62-year-old lady with distributive shock, most likely secondary to sepsis with multiorgan system failure including liver failure, acute kidney injury in the setting of metastatic breast cancer (mets to lungs and liver). 1. Neurologic: The patient is sedated. Once shock resolved, we will proceed with daily weaning trials and sedation vacations. 2. Pulmonary: We will continue with low tidal volume ventilation with maintaining tidal volume between 4 and 8 mL of predicted body weight and plateau pressure less than 30 cm of water. May use higher PEEP/Fi02. Head of bed elevated more than 35 degrees. Oral hygiene. We will try to avoid significantly positive fluid balance. The patient is undergoing dialysis intermittently. 3. Cardiovascular: The patient most likely has distributive shock. The patient is on norepinephrine, vasopressin and stress dose steroids. We will continue with hemodynamic support. 4. Gastrointestinal: The patient is n.p.o. for now. 5. Renal: The patient is undergoing intermittent dialysis. We will try to avoid hyperchloremia, very positive or negative fluid balance. We will try to maintain euvolemia, euglycemia. 6. Endocrine: We will maintain blood glucose within 140-180 range according to NICE-SUGAR trial. 7. Infectious disease: The patient is in distributive shock, post likely due to sepsis. Blood cultures were negative. The patient is on meropenem, micafungin and Infectious Disease Service is following the patient as well. 8. I discussed prognosis with the patient's family and all questions were answered. I will come back to see if they have additional comments as to the advanced directives for the patient in light of very poor prognosis in this patient with distributive shock with multiorgan system failure in the setting of metastatic breast cancer. We will continue with deep venous thrombosis, gastrointestinal prophylaxes. Deion Alvarado MD [facility]
--- NOTE | 2018-06-17 09:12 | PN ---
DATE: 06/17/2018 SUBJECTIVE: The patient is currently seen in CCU bed 2. She remains sedated on a ventilator. She remains on pressors. She is currently anuric. She will be scheduled for another dialysis treatment today with transfusion of 1 unit of packed red blood cells. Her family is at bedside. A lengthy discussion was had with the family about the long-term prognosis and the rationale for continuation or discontinuation of dialysis treatments. MEDICATIONS: Medication list reviewed. The patient is currently on albumin, Ativan, Colace, doxycycline, fentanyl, subcu heparin, viscous lidocaine, meropenem, micafungin, MiraLax, Levophed, Pepcid, Pulmicort, Solu-Cortef, Spiriva, vasopressin, Xopenex and Zyprexa. OBJECTIVE: INTAKE/OUTPUT: Intake is 3045, total output is 50 mL. There is no urine output. Yesterday's dialysis removed 750 mL of fluid. VITAL SIGNS: On pressors, blood pressure presently 120/39; temperature is 99.7, down from a high of 100.3. Respiratory rate is 16 with a pulse of 92. The patient remains on a ventilator, intubated and sedated. HEENT: Eyes are closed. The patient is intubated. NECK: Supple. No neck vein distention. CHEST: Decreased breath sounds at the bases. No rales or rhonchi appreciated. CARDIOVASCULAR: S1, S2 appeared to be regular. No audible murmurs, but history of tricuspid regurgitation. No S3, no S4, no rub. ABDOMEN: Soft. Obese. Minimal distention. Bowel sounds are present. No rebound or guarding. EXTREMITIES: Significant for 2+ pitting edema of her lower extremity with puffiness of her upper extremity. The patient has a triple-lumen catheter in her left groin. She has a arterial line in her right groin. She has a PermCath in her left chest wall and a port in her right chest wall. LABORATORY DATA AND IMAGING: CBC: White blood cell count today continues to rise 46.4, hemoglobin low at 7.8, platelet count is 72,000. Blood gas from the morning: PH 7.34, pO2 of 186 with a pCO2 of 40. Chemistries today showed normal electrolytes. BUN is 59 with a creatinine of 2.7. Again, the patient is being maintained on daily dialysis. Glucose is 119. Calcium is 7.9. Phosphorus is elevated at 7.4 with a magnesium of 2.2. Bilirubin 6.5. Liver enzymes are elevated. Albumin is low at 2.6. Microbiology: Only culture that is positive is yeast in her urine. All blood cultures are negative. ASSESSMENT: 1. Sepsis. So far, culture negative. Hypotension, pressor dependent. Acidosis resolved with dialysis. The patient has gone from oliguria to anuria. She has acute renal failure in the setting of multisystem organ failure. The patient as per my lengthy discussion with family will continue to be maintained on dialysis, though as explained to them, I do not see the light at the end of the tunnel here. We will dialyze the patient today and transfuse her 1 unit of packed red blood cells. 2. Acute renal failure secondary to acute tubular necrosis secondary to sustained hypotension along with multisystem organ failure. 3. Acute liver failure with perhaps shock liver secondary to hypotension. 4. History of anemia. Again, the patient will be transfused today. 5. Thrombocytopenia with elevated white blood cell count, being monitored on a daily basis. 6. Past history of hypertension. The patient is currently hypotensive, on pressor therapy. 7. Stage IV breast cancer with lung and liver metastasis. PLAN: 1. Discussion with Dr. Alvarado, her sawdust drier; discussion with the ICU nurse; discussion with family and discussion with the hemodialysis nurse. The patient will receive another dialysis treatment today. We will try and ultrafiltrate 1.5 L of fluid if blood pressure permitting. We will support her blood pressure with pressors. 2. Continuing antibiotics and antifungal agents empirically. 3. Continue pressor support for blood pressure control. 4. Discussed with family the seriousness of this situation given her multi system organ failure and to her metastatic breast cancer with lung and liver mets. For right now, the patient's family would like to continue present treatment course. I did ask them to think about our discussion to see whether or not they would like her to continue on dialysis given the very poor prognosis. 5. Greater than 35 minutes spent in the care of this critically ill patient. Genaro Goldman MD
[2018-06-17] MEDS: POLYETHYLENE GLYCOL 3350 17 GM/Dose PACKET PO SCH (09:19)
[2018-06-17] MEDS: Tiotropium 18 mcg Cap For Inhalation IH SCH (09:19)
[2018-06-17] MEDS: Norepinephrine 8 MG in Sodium Chloride 0.9% 500 ML IV PRN ×2 (10:00→23:18)
--- NOTE | 2018-06-17 10:01 | PN ---
DATE: 06/17/2018 SUBJECTIVE: The patient is in bed. Intubated on a ventilator, poor condition, was seen earlier this morning. PHYSICAL EXAMINATION: VITAL SIGNS: On exam, temperature is 99, blood pressure is 120/30, respiratory rate on the vent, heart rate of 92. HEENT: Examination of HEENT is unremarkable. NECK: Supple. LUNGS: Have decreased breath sounds. HEART: Normal S1, S2. ABDOMEN: Soft, nontender. LABORATORY DATA: Laboratory examination reveals a white count of 46,000, BUN of 59, creatinine of 2.7. Repeat blood cultures are negative. Review of orders revealed the patient to be on doxycycline, meropenem, micafungin. ASSESSMENT AND PLAN: A 62-year-old with probable sepsis with bilateral healthcare-associated pneumonia, respiratory failure, intubated on a ventilator, morbid obesity with body mass index of 47, hypertension, chronic obstructive lung disease, depression, bipolar, breast cancer with metastasis and radiation and chemotherapy, chronic renal failure. Day #6 of meropenem. She had 5 days of cefepime, now on meropenem. Day #6 of meropenem and doxycycline. Overall prognosis is quite poor for this patient. Blake Dias MD
[2018-06-17] MEDS: Micafungin 100 MG in Sodium Chloride 0.9% 100 ML IV SCH (12:20)
[2018-06-17] MEDS: Meropenem 500 MG in Sodium Chloride 0.9% 50 ML IVPB SCH ×2 (12:20→21:39)
--- NOTE | 2018-06-17 13:27 | RAD ---
Date of service: 06/17/2018 HISTORY: intubated COMPARISON: 06/16/2018 FINDINGS: LUNGS: The endotracheal tube is at the level of the shonna. Nasogastric tube in satisfactory position. PLEURA: No significant pleural effusion identified, no pneumothorax apparent. CARDIOVASCULAR: Mild vascular congestion OSSEOUS STRUCTURES: No significant abnormalities. VISUALIZED UPPER ABDOMEN: Normal. OTHER FINDINGS: None. IMPRESSION: Endotracheal tube at the level of the shonna. The tube could be pulled back 1.5 or 2 cm for more optimal positioning
--- NOTE | 2018-06-17 13:32 | PN ---
DATE: 06/17/2018 SUBJECTIVE: The patient is 62 years old, seen and examined. Yesterday's event noted. The patient was hyperventilating, ended up getting intubated. Currently, on pressors, getting hemodialysis. Responds to painful stimuli. PHYSICAL EXAMINATION: VITAL SIGNS: She has temperature of 99, pulse 74, respirations 20, on oxygen of 40% saturating 96%. HEAD AND NECK: She is intubated. LUNGS: Bilateral fair airflow. Unable to appreciate at the bases because of her body habitus. ABDOMEN: Soft, obese. Bowel sounds are positive. NEUROLOGICAL: She is sedated, minimally responsive. EXTREMITIES: Bilateral legs, +4 edema. LABORATORY EXAM: WBC is 46.4, hemoglobin 7.8, hematocrit 25.5, platelet of 72. Chemistry: Sodium 140, potassium 3.9, chloride 103, CO2 of 22, BUN 59, creatinine 2.7, blood sugar 119, magnesium 2.2, AST 581, ALT 94, alk phos is 594. ASSESSMENT: 1. Respiratory failure. 2. Renal failure, on dialysis. 3. Multifactorial hypotension. 4. End-stage renal disease, on hemodialysis. 5. Anemia, receiving one blood transfusion. 6. Leukocytosis, etiology is still unclear. 7. Metastatic breast cancer. 8. History of bipolar disorder. PLAN: The patient will receive hemodialysis, will have 1500 mL fluid removed, will receive one blood transfusion. Continue antibiotic. Analgesic as needed. She is currently on meropenem and doxycycline. She has been started on micafungin. I discussed with nursing staff, discussed with the patient's family. Prognosis seems to be poor. She is not a DNR yet. Jessica Flores MD
--- NOTE | 2018-06-17 14:09 | CP.CCUPN ---
<Iris Bates - Last Filed: 06/17/18 14:55> CCU Subjective - Physician Review Subjective (Free Text): 06/17/18 14:03 Patient seen and examined at bedside. No acute events overnight. Patient remains intubated. Opening eyes spontaneously, follows some commands. No fevers overnight. Patient remains on Levo, vasopressin and fentanyl drips. Patient receiving dialysis this morning. 12 point ROS limited as patient is intubated. CCU Objective - Vital Signs / Intake & Output Vital Signs (Last 4 hours): Vital Signs Temp BP 06/17/18 12:24 112/39 L 06/17/18 12:00 99 F Intake and Output (Last 8hrs): Intake & Output 06/16/18 06/17/18 06/17/18 22:59 06:59 14:59 Intake Total 1430.32 1431 170 Output Total 50 0 Balance 1380.32 1431 170 Intake: IV 1380.32 1331 170 Antibiotics 250 Fentanyl 220 72 Left femoral 250 Levophed 453 488 Vasopressin 108 108 Oral 0 0 Albumin 50 100 Output: Gastric Amount 50 0 Stomach 50 0 Urine 0 0 2-way Urethral 0 0 Urine, Voided 0 Stool 0 0 Emesis 0 0 Other: Voiding Method Diaper Diaper - Physical Exam Head: Positive for: Atraumatic Pupils: Positive for: PERRL Extroacular Muscles: Positive for: EOMI Conjunctiva: Positive for: Normal Mouth: Positive for: Moist Mucous Membranes Neck: Positive for: Normal Range of Motion Respiratory/Chest: Positive for: Good Air Exchange, Other (Decreased breath sounds b/l; intubated on pRVC TV 400, PEEP 5, RR 14, 40% FiO2.). Negative for: Clear to Auscultation, Respiratory Distress, Accessory Muscle Use, Wheezes, Retracting, Tender to Palpation Cardiovascular: Positive for: Normal S1, S2 Abdomen: Positive for: Normal Bowel Sounds. Negative for: Tenderness, Rebound, Guarding Upper Extremity: Positive for: Edema (nonpitting, 3+ bilaterally), Normal ROM, Other (right wrist arterial line in place, poor wave form) Lower Extremity: Positive for: Normal Inspection, Edema, Other (left femoral vein central line in place, site is clean, sterile dressing intact; right arterial line cath in place). Negative for: CALF TENDERNESS, Tenderness, Deformity Neurological: Positive for: GCS=15, CN II-XII Intact Skin: Positive for: Warm, Dry, Normal Color Psychiatric: Positive for: Other (intubated, opens eyes spontaneously) - Medications Active Medications: Active Medications Generic Name Dose Route Start Last Admin Trade Name Freq PRN Reason Stop Dose Admin Albumin Human 12.5 gm 06/13/18 12:45 06/17/18 12:25 Albumin Human 25% (12.5 Gm/50 Ml) IV 12.5 gm Q8H TAZ Administration Benzocaine/Menthol 1 rosey 06/10/18 18:45 Cepacol Sore Throat MT Q2H PRN Sore Throat Budesonide 0.5 mg 06/11/18 20:00 06/17/18 07:08 Pulmicort Respules IH 0.5 mg [id number] TAZ Administration Docusate Sodium 200 mg 06/10/18 12:00 06/17/18 09:19 Colace PO Not Given DAILY TAZ Famotidine 20 mg 06/15/18 22:00 06/16/18 21:08 Pepcid PO 20 mg HS TAZ Administration Heparin Sodium (Porcine) 5,000 units 06/08/18 22:00 06/17/18 12:19 Heparin SC 5,000 units Q12 TAZ Administration Protocol Hydrocortisone Sodium Succinate 50 mg 06/17/18 12:00 06/17/18 12:21 Solu-Cortef IVP 50 mg Q6 TAZ Administration Meropenem 500 mg/ Sodium 50 mls @ 100 mls/hr 06/12/18 22:00 06/17/18 12:20 Chloride IVPB 06/17/18 22:01 100 mls/hr Q12 TAZ Administration Protocol Doxycycline Hyclate 100 mg/ 100 mls @ 100 mls/hr 06/12/18 22:00 06/17/18 12: 22 Sodium Chloride IVPB 100 mls/hr Q12 TAZ Administration Protocol Norepinephrine Bitartrate 8 mg 508 mls @ 15.24 mls/hr 06/13/18 08:54 10:00 / Sodium Chloride IV 11 mcg/min .Q24H PRN 41.91 mls/hr TITRATE PER MD ORDER Administration Protocol 4 MCG/MIN Vasopressin 20 units/ Sodium 101 mls @ 9.09 mls/hr 06/15/18 11:31 09/15/18 12 :24 Chloride IV 9.09 mls/hr .[id number] TAZ Administration Protocol 0.03 U/MIN Fentanyl Citrate 1,000 mcg in 100 mls @ 2 mls/hr 06/16/18 12:05 06/17/18 04: 46 Fentanyl Citrate/Sodium Chloride 1 Mg/100 Ml IV 70 mcg/hr .Q24H PRN 7 mls/hr TITRATE PER MD ORDER Administration Protocol 20 MCG/HR Micafungin Sodium 100 mg/ 100 mls @ 100 mls/hr 06/16/18 13:15 06/17/18 12:20 Sodium Chloride IV 06/23/18 13:16 100 mls/hr DAILY TAZ Administration Protocol Levalbuterol HCl 1.25 mg 06/07/18 02:00 06/17/18 13:21 Xopenex IH 1.25 mg [id number] TAZ Administration Lidocaine HCl 15 ml 06/10/18 18:43 06/10/18 18:51 Lidocaine 2% Viscous PO 15 ml Q3H PRN Administration Sore Throat Lorazepam 1 mg 06/09/18 18:15 06/11/18 23:48 Ativan PO 1 mg TID PRN Administration anxiety/agitation Protocol Olanzapine 2.5 mg 06/13/18 16:39 Zyprexa PO DAILY PRN agitation/psychosis Protocol Polyethylene Glycol 17 gm 06/10/18 12:00 06/17/18 09:19 Miralax PO Not Given DAILY TAZ Tiotropium New Century 18 mcg 06/14/18 15:45 06/17/18 09:19 Spiriva IH Not Given DAILY TAZ - Patient Studies Lab Studies: Microbiology Studies 06/13/18 07:30 Blood Culture - Preliminary Blood-Venous NO GROWTH AFTER 4 DAYS 06/13/18 07:30 Blood Culture - Preliminary Blood-Venous NO GROWTH AFTER 4 DAYS 06/16/18 07:20 Blood Culture - Preliminary Blood-Venous NO GROWTH AFTER 24 HOURS 06/16/18 07:00 Blood Culture - Preliminary Blood-Venous NO GROWTH AFTER 24 HOURS Lab Studies 06/17/18 06/17/18 06/17/18 Range/Units 08:25 05:30 05:30 WBC 46.4 H* (4.5-11.0) 10^3/ul RBC 3.21 L (3.5-6.1) 10^6/uL Hgb 7.8 L (12.0-16.0) g/dL Hct 25.5 L (36.0-48.0) % MCV 79.4 L (80.0-105.0) fl MCH 24.3 L (25.0-35.0) pg MCHC 30.6 L (31.0-37.0) g/dl RDW 20.5 H (11.5-14.5) % Plt Count 72 L (120.0-450.0) 10^3/uL Baso % (Auto) 0.4 (0.0-3.0) % Baso # (Auto) 0.19 (0.0-2.0) K/mm3 pCO2 (35-45) mm/Hg pO2 (80-100) mm/Hg HCO3 (21-28) mmol/L ABG pH (7.35-7.45) ABG Total CO2 (22-28) mmol.L ABG O2 Saturation (95-98) % ABG O2 Content (15-23) ML/dl ABG Base Excess (-2.0-3.0) mmol/L ABG Hemoglobin (11.7-17.4) g/dL ABG Carboxyhemoglobin (0.5-1.5) % POC ABG HHb (Measured) (0-5) % ABG Methemoglobin (0.0-3.0) % ABG O2 Capacity (16-24) mL/dl Hgb O2 Saturation (95.0-98.0) % FiO2 % Sodium 140 (132-148) mmol/L Potassium 3.9 (3.6-5.0) mmol/L Chloride 103 (98-107) mmol/L Carbon Dioxide 22 (21-33) mmol/L Anion Gap 19 (10-20) BUN 59 H (7-21) mg/dL Creatinine 2.7 H (0.7-1.2) mg/dl Est GFR ( Amer) 22 Est GFR (Non-Af Amer) 18 Random Glucose 119 H (70-110) mg/dL Calcium 7.9 L (8.4-10.5) mg/dL Phosphorus 7.4 H (2.5-4.5) mg/dL Magnesium 2.2 (1.7-2.2) mg/dL Total Bilirubin 6.5 H (0.2-1.3) mg/dL AST 581 H D (14-36) U/L ALT 94 H (7-56) U/L Alkaline Phosphatase 594 H D (38-126) U/L Total Protein 4.9 L (5.8-8.3) g/dL Albumin 2.6 L (3.0-4.8) g/dL Globulin 2.3 gm/dL Albumin/Globulin Ratio 1.2 (1.1-1.8) Blood Type O POSITIVE Antibody Screen Negative Crossmatch See Detail BBK History Checked Patient has bt 06/17/18 06/16/18 Range/Units 05:30 16:35 WBC (4.5-11.0) 10^3/ul RBC (3.5-6.1) 10^6/uL Hgb (12.0-16.0) g/dL Hct (36.0-48.0) % MCV (80.0-105.0) fl MCH (25.0-35.0) pg MCHC (31.0-37.0) g/dl RDW (11.5-14.5) % Plt Count (120.0-450.0) 10^3/uL Baso % (Auto) (0.0-3.0) % Baso # (Auto) (0.0-2.0) K/mm3 pCO2 40 27 L (35-45) mm/Hg pO2 186.0 H 289.0 H (80-100) mm/Hg HCO3 21.6 17.5 L (21-28) mmol/L ABG pH 7.34 L 7.42 (7.35-7.45) ABG Total CO2 22.8 18.3 L (22-28) mmol.L ABG O2 Saturation 100.2 H 100.2 H (95-98) % ABG O2 Content 11.1 L 11.8 L (15-23) ML/dl ABG Base Excess -3.9 L -6.1 L (-2.0-3.0) mmol/L ABG Hemoglobin 7.8 L 8.0 L (11.7-17.4) g/dL ABG Carboxyhemoglobin 1.5 1.2 (0.5-1.5) % POC ABG HHb (Measured) -0.2 L -0.2 L (0-5) % ABG Methemoglobin 1.8 1.2 (0.0-3.0) % ABG O2 Capacity 11.1 L 11.8 L (16-24) mL/dl Hgb O2 Saturation 96.9 97.8 (95.0-98.0) % FiO2 100.0 100.0 % Sodium (132-148) mmol/L Potassium (3.6-5.0) mmol/L Chloride (98-107) mmol/L Carbon Dioxide (21-33) mmol/L Anion Gap (10-20) BUN (7-21) mg/dL Creatinine (0.7-1.2) mg/dl Est GFR ( Amer) Est GFR (Non-Af Amer) Random Glucose (70-110) mg/dL Calcium (8.4-10.5) mg/dL Phosphorus (2.5-4.5) mg/dL Magnesium (1.7-2.2) mg/dL Total Bilirubin (0.2-1.3) mg/dL AST (14-36) U/L ALT (7-56) U/L Alkaline Phosphatase (38-126) U/L Total Protein (5.8-8.3) g/dL Albumin (3.0-4.8) g/dL Globulin gm/dL Albumin/Globulin Ratio (1.1-1.8) Blood Type Antibody Screen Crossmatch BBK History Checked Laboratory Results - last 24 hr 06/16/18 06/17/18 06/17/18 16:35 05:30 05:30 WBC 46.4 H* RBC 3.21 L Hgb 7.8 L Hct 25.5 L MCV 79.4 L MCH 24.3 L MCHC 30.6 L RDW 20.5 H Plt Count 72 L Baso % (Auto) 0.4 Baso # (Auto) 0.19 pCO2 27 L 40 pO2 289.0 H 186.0 H HCO3 17.5 L 21.6 ABG pH 7.42 7.34 L ABG Total CO2 18.3 L 22.8 ABG O2 Saturation 100.2 H 100.2 H ABG O2 Content 11.8 L 11.1 L ABG Base Excess -6.1 L -3.9 L ABG Hemoglobin 8.0 L 7.8 L ABG Carboxyhemoglobin 1.2 1.5 POC ABG HHb (Measured) -0.2 L -0.2 L ABG Methemoglobin 1.2 1.8 ABG O2 Capacity 11.8 L 11.1 L Hgb O2 Saturation 97.8 96.9 FiO2 100.0 100.0 Sodium Potassium Chloride Carbon Dioxide Anion Gap BUN Creatinine Est GFR ( Amer) Est GFR (Non-Af Amer) Random Glucose Calcium Phosphorus Magnesium Total Bilirubin AST ALT Alkaline Phosphatase Total Protein Albumin Globulin Albumin/Globulin Ratio Blood Type Antibody Screen Crossmatch BBK History Checked 06/17/18 06/17/18 05:30 08:25 WBC RBC Hgb Hct MCV MCH MCHC RDW Plt Count Baso % (Auto) Baso # (Auto) pCO2 pO2 HCO3 ABG pH ABG Total CO2 ABG O2 Saturation ABG O2 Content ABG Base Excess ABG Hemoglobin ABG Carboxyhemoglobin POC ABG HHb (Measured) ABG Methemoglobin ABG O2 Capacity Hgb O2 Saturation FiO2 Sodium 140 Potassium 3.9 Chloride 103 Carbon Dioxide 22 Anion Gap 19 BUN 59 H Creatinine 2.7 H Est GFR ( Amer) 22 Est GFR (Non-Af Amer) 18 Random Glucose 119 H Calcium 7.9 L Phosphorus 7.4 H Magnesium 2.2 Total Bilirubin 6.5 H AST 581 H D ALT 94 H Alkaline Phosphatase 594 H D Total Protein 4.9 L Albumin 2.6 L Globulin 2.3 Albumin/Globulin Ratio 1.2 Blood Type O POSITIVE Antibody Screen Negative Crossmatch See Detail BBK History Checked Patient has bt Review of Systems - Review of Systems Systems not reviewed;Unavailable: Intubated Critical Care Progress Note - Nutrition Nutrition: Nutrition Category Date Time Status NPO Diet [DIET] Diets 06/16/18 Lunch Ordered Assessment/Plan - Assessment and Plan (Free Text) Assessment: 62F with hx of COPD, breast cancer with mets s/p chemo/radiation (08/2017) and left lumpectomy, CKD (baseline Cr 2.6), HTN, bipolar disorder, depression admitted to the ICU for hypovolemic vs septic shock, with MODS including MARILYN, liver failure in setting of metastatic breast cancer: Neuro: opens eyes spontaneously, follows some commands. intubated. On fentanyl drip. Cont to monitor closely. Cardio: BP 100-110s/30-40s. On Levophed 11 mcg/min, Vaso 0.03 U/min. Maintain MAP>65. Echo 06/12/18 shows normal EF. normal valve function, mild TR. normal IVC size, collapses >50% with inspiration. Hx of HTN. hold home irbesartan and bystolic in setting of low BP. Monitor Pulm: on prvc, TV 400, RR 14, PEEP 5, FiO2 40%. On stress dose steroids, bronchodilators. Continue with HOB elevation> 35 degrees, aspiration precautions. Continue with protected lung ventilation strategies with TV of 6 ml/kg of IBW, plateau pressure less than 35, head of bed elevation above 35 degrees, bronchodilators, keep oxygenation above 90%, pulm toileting On merrem and Doxy CT chest 06/06 shows moderate size right sided pleural effusion. Nodularity in both lung, indeterminate for malignancy, largest nodule is 1.3 cm (similar findings on chest CT on 05/2018). Mild diffuse subcutaneous edema in the lower abdomen and pelvis. Liver is heterogenous in appearance and appears to contain multiple mets. LE US negative for DVT, no right heart strain on echo; IVC compressible supporting hypovolemic shock differential GI: NPO (currently on Levo at 11 mcg/min). continue with pepcid. Stable transaminitis likely 2/2 mets to liver. Gall bladder and liver US; negative except for collapsed GB GI on board. Renal: BUN/Cr 59/2.7 (baseline Cr 2.4) Replace lytes, maintain euvolemia. dialysis today Monitor ID: Initial and repeat blood cultures negative. Urine culture shows yeast, discontinued kraus catheter. On merrem, doxy, Micafungin ID on board. Appreciate recs. Heme: Hgb dropped this AM 7.8 likely sepsis related. Patient pancytopenic. Sent for HIT ab. f/u results. will give 1 unit prbc during dialysis. continue to monitor DVT ppx: scds, Heparin GI ppx: pepcid Case seen and discussed with Dr Lara. <Deion Lara - Last Filed: 06/17/18 17:30> CCU Objective - Vital Signs / Intake & Output Vital Signs (Last 4 hours): Vital Signs Temp Pulse Resp BP Pulse Ox 06/17/18 17:00 109/43 L 06/17/18 16:20 20 06/17/18 16:00 100 F H 111/43 L 06/17/18 15:00 99.9 F H 86 129/62 75 L 06/17/18 14:00 99.7 F H 77 109/39 L 100 Intake and Output (Last 8hrs): Intake & Output 06/17/18 06/17/18 06/17/18 06:59 14:59 22:59 Intake Total 1431 170 Output Total 0 Balance 1431 170 Intake: IV 1331 170 Fentanyl 72 Left femoral 250 Levophed 488 Vasopressin 108 Oral 0 Albumin 100 Output: Gastric Amount 0 Stomach 0 Urine 0 2-way Urethral 0 Urine, Voided 0 Stool 0 Emesis 0 Other: Voiding Method Diaper - Medications Active Medications: Active Medications Generic Name Dose Route Start Last Admin Trade Name Freq PRN Reason Stop Dose Admin Albumin Human 12.5 gm 06/13/18 12:45 06/17/18 12:25 Albumin Human 25% (12.5 Gm/50 Ml) IV 12.5 gm Q8H TAZ Administration Benzocaine/Menthol 1 rosey 06/10/18 18:45 Cepacol Sore Throat MT Q2H PRN Sore Throat Budesonide 0.5 mg 06/11/18 20:00 06/17/18 07:08 Pulmicort Respules IH 0.5 mg [id number] TAZ Administration Docusate Sodium 200 mg 06/10/18 12:00 06/17/18 09:19 Colace PO Not Given DAILY TAZ Famotidine 20 mg 06/15/18 22:00 06/16/18 21:08 Pepcid PO 20 mg HS TAZ Administration Heparin Sodium (Porcine) 5,000 units 06/08/18 22:00 06/17/18 12:19 Heparin SC 5,000 units Q12 TAZ Administration Protocol Hydrocortisone Sodium Succinate 50 mg 06/17/18 12:00 06/17/18 12:21 Solu-Cortef IVP 50 mg Q6 TAZ Administration Meropenem 500 mg/ Sodium 50 mls @ 100 mls/hr 06/12/18 22:00 06/17/18 12:20 Chloride IVPB 06/17/18 22:01 100 mls/hr Q12 TAZ Administration Protocol Doxycycline Hyclate 100 mg/ 100 mls @ 100 mls/hr 06/12/18 22:00 06/17/18 12: 22 Sodium Chloride IVPB 100 mls/hr Q12 TAZ Administration Protocol Norepinephrine Bitartrate 8 mg 508 mls @ 15.24 mls/hr 06/13/18 08:54 10:00 / Sodium Chloride IV 11 mcg/min .Q24H PRN 41.91 mls/hr TITRATE PER MD ORDER Administration Protocol 4 MCG/MIN Vasopressin 20 units/ Sodium 101 mls @ 9.09 mls/hr 06/15/18 11:31 06/17/18 12 :24 Chloride IV 9.09 mls/hr .Q11H7M TAZ Administration Protocol 0.03 U/MIN Fentanyl Citrate 1,000 mcg in 100 mls @ 2 mls/hr 06/16/18 12:05 06/17/18 04: 46 Fentanyl Citrate/Sodium Chloride 1 Mg/100 Ml IV 70 mcg/hr .Q24H PRN 7 mls/hr TITRATE PER MD ORDER Administration Protocol 20 MCG/HR Micafungin Sodium 100 mg/ 100 mls @ 100 mls/hr 06/16/18 13:15 06/17/18 12:20 Sodium Chloride IV 06/23/18 13:16 100 mls/hr DAILY TAZ Administration Protocol Levalbuterol HCl 1.25 mg 06/07/18 02:00 06/17/18 13:21 Xopenex IH 1.25 mg [id number] TAZ Administration Lidocaine HCl 15 ml 06/10/18 18:43 06/10/18 18:51 Lidocaine 2% Viscous PO 15 ml Q3H PRN Administration Sore Throat Lorazepam 1 mg 06/09/18 18:15 06/11/18 23:48 Ativan PO 1 mg TID PRN Administration anxiety/agitation Protocol Olanzapine 2.5 mg 06/13/18 16:39 Zyprexa PO DAILY PRN agitation/psychosis Protocol Polyethylene Glycol 17 gm 06/10/18 12:00 06/17/18 09:19 Miralax PO Not Given DAILY TAZ Tiotropium New Century 18 mcg 06/14/18 15:45 06/17/18 09:19 Spiriva IH Not Given DAILY TAZ - Patient Studies Lab Studies: Microbiology Studies 06/13/18 07:30 Blood Culture - Preliminary Blood-Venous NO GROWTH AFTER 4 DAYS 06/13/18 07:30 Blood Culture - Preliminary Blood-Venous NO GROWTH AFTER 4 DAYS 06/16/18 07:20 Blood Culture - Preliminary Blood-Venous NO GROWTH AFTER 24 HOURS 06/16/18 07:00 Blood Culture - Preliminary Blood-Venous NO GROWTH AFTER 24 HOURS Lab Studies 06/17/18 06/17/18 06/17/18 Range/Units 08:25 05:30 05:30 WBC 46.4 H* (4.5-11.0) 10^3/ul RBC 3.21 L (3.5-6.1) 10^6/uL Hgb 7.8 L (12.0-16.0) g/dL Hct 25.5 L (36.0-48.0) % MCV 79.4 L (80.0-105.0) fl MCH 24.3 L (25.0-35.0) pg MCHC 30.6 L (31.0-37.0) g/dl RDW 20.5 H (11.5-14.5) % Plt Count 72 L (120.0-450.0) 10^3/uL Baso % (Auto) 0.4 (0.0-3.0) % Baso # (Auto) 0.19 (0.0-2.0) K/mm3 pCO2 (35-45) mm/Hg pO2 (80-100) mm/Hg HCO3 (21-28) mmol/L ABG pH (7.35-7.45) ABG Total CO2 (22-28) mmol.L ABG O2 Saturation (95-98) % ABG O2 Content (15-23) ML/dl ABG Base Excess (-2.0-3.0) mmol/L ABG Hemoglobin (11.7-17.4) g/dL ABG Carboxyhemoglobin (0.5-1.5) % POC ABG HHb (Measured) (0-5) % ABG Methemoglobin (0.0-3.0) % ABG O2 Capacity (16-24) mL/dl Hgb O2 Saturation (95.0-98.0) % FiO2 % Sodium 140 (132-148) mmol/L Potassium 3.9 (3.6-5.0) mmol/L Chloride 103 (98-107) mmol/L Carbon Dioxide 22 (21-33) mmol/L Anion Gap 19 (10-20) BUN 59 H (7-21) mg/dL Creatinine 2.7 H (0.7-1.2) mg/dl Est GFR ( Amer) 22 Est GFR (Non-Af Amer) 18 Random Glucose 119 H (70-110) mg/dL Calcium 7.9 L (8.4-10.5) mg/dL Phosphorus 7.4 H (2.5-4.5) mg/dL Magnesium 2.2 (1.7-2.2) mg/dL Total Bilirubin 6.5 H (0.2-1.3) mg/dL AST 581 H D (14-36) U/L ALT 94 H (7-56) U/L Alkaline Phosphatase 594 H D (38-126) U/L Total Protein 4.9 L (5.8-8.3) g/dL Albumin 2.6 L (3.0-4.8) g/dL Globulin 2.3 gm/dL Albumin/Globulin Ratio 1.2 (1.1-1.8) Blood Type O POSITIVE Antibody Screen Negative Crossmatch See Detail BBK History Checked Patient has bt 06/17/18 Range/Units 05:30 WBC (4.5-11.0) 10^3/ul RBC (3.5-6.1) 10^6/uL Hgb (12.0-16.0) g/dL Hct (36.0-48.0) % MCV (80.0-105.0) fl MCH (25.0-35.0) pg MCHC (31.0-37.0) g/dl RDW (11.5-14.5) % Plt Count (120.0-450.0) 10^3/uL Baso % (Auto) (0.0-3.0) % Baso # (Auto) (0.0-2.0) K/mm3 pCO2 40 (35-45) mm/Hg pO2 186.0 H (80-100) mm/Hg HCO3 21.6 (21-28) mmol/L ABG pH 7.34 L (7.35-7.45) ABG Total CO2 22.8 (22-28) mmol.L ABG O2 Saturation 100.2 H (95-98) % ABG O2 Content 11.1 L (15-23) ML/dl ABG Base Excess -3.9 L (-2.0-3.0) mmol/L ABG Hemoglobin 7.8 L (11.7-17.4) g/dL ABG Carboxyhemoglobin 1.5 (0.5-1.5) % POC ABG HHb (Measured) -0.2 L (0-5) % ABG Methemoglobin 1.8 (0.0-3.0) % ABG O2 Capacity 11.1 L (16-24) mL/dl Hgb O2 Saturation 96.9 (95.0-98.0) % FiO2 100.0 % Sodium (132-148) mmol/L Potassium (3.6-5.0) mmol/L Chloride (98-107) mmol/L Carbon Dioxide (21-33) mmol/L Anion Gap (10-20) BUN (7-21) mg/dL Creatinine (0.7-1.2) mg/dl Est GFR ( Amer) Est GFR (Non-Af Amer) Random Glucose (70-110) mg/dL Calcium (8.4-10.5) mg/dL Phosphorus (2.5-4.5) mg/dL Magnesium (1.7-2.2) mg/dL Total Bilirubin (0.2-1.3) mg/dL AST (14-36) U/L ALT (7-56) U/L Alkaline Phosphatase (38-126) U/L Total Protein (5.8-8.3) g/dL Albumin (3.0-4.8) g/dL Globulin gm/dL Albumin/Globulin Ratio (1.1-1.8) Blood Type Antibody Screen Crossmatch BBK History Checked Laboratory Results - last 24 hr 06/17/18 06/17/18 06/17/18 05:30 05:30 05:30 WBC 46.4 H* RBC 3.21 L Hgb 7.8 L Hct 25.5 L MCV 79.4 L MCH 24.3 L MCHC 30.6 L RDW 20.5 H Plt Count 72 L Baso % (Auto) 0.4 Baso # (Auto) 0.19 pCO2 40 pO2 186.0 H HCO3 21.6 ABG pH 7.34 L ABG Total CO2 22.8 ABG O2 Saturation 100.2 H ABG O2 Content 11.1 L ABG Base Excess -3.9 L ABG Hemoglobin 7.8 L ABG Carboxyhemoglobin 1.5 POC ABG HHb (Measured) -0.2 L ABG Methemoglobin 1.8 ABG O2 Capacity 11.1 L Hgb O2 Saturation 96.9 FiO2 100.0 Sodium 140 Potassium 3.9 Chloride 103 Carbon Dioxide 22 Anion Gap 19 BUN 59 H Creatinine 2.7 H Est GFR ( Amer) 22 Est GFR (Non-Af Amer) 18 Random Glucose 119 H Calcium 7.9 L Phosphorus 7.4 H Magnesium 2.2 Total Bilirubin 6.5 H AST 581 H D ALT 94 H Alkaline Phosphatase 594 H D Total Protein 4.9 L Albumin 2.6 L Globulin 2.3 Albumin/Globulin Ratio 1.2 Blood Type Antibody Screen Crossmatch BBK History Checked 06/17/18 08:25 WBC RBC Hgb Hct MCV MCH MCHC RDW Plt Count Baso % (Auto) Baso # (Auto) pCO2 pO2 HCO3 ABG pH ABG Total CO2 ABG O2 Saturation ABG O2 Content ABG Base Excess ABG Hemoglobin ABG Carboxyhemoglobin POC ABG HHb (Measured) ABG Methemoglobin ABG O2 Capacity Hgb O2 Saturation FiO2 Sodium Potassium Chloride Carbon Dioxide Anion Gap BUN Creatinine Est GFR ( Amer) Est GFR (Non-Af Amer) Random Glucose Calcium Phosphorus Magnesium Total Bilirubin AST ALT Alkaline Phosphatase Total Protein Albumin Globulin Albumin/Globulin Ratio Blood Type O POSITIVE Antibody Screen Negative Crossmatch See Detail BBK History Checked Patient has bt Critical Care Progress Note - Nutrition Nutrition: Nutrition Category Date Time Status NPO Diet [DIET] Diets 06/16/18 Lunch Ordered Attending/Attestation - Attestation I have personally seen and examined this patient.: Yes I have fully participated in the care of the patient.: Yes I have reviewed all pertinent clinical information: Yes Notes (Text): 06/17/18 17:[address] lara note
--- NOTE | 2018-06-18 00:47 | PN ---
DATE: 06/17/2018 PULMONARY AND CRITICAL CARE PROGRESS NOTE REFERRING PHYSICIAN: Jessica Flores MD SUBJECTIVE: She is sedated and intubated, on multiple pressors. Overnight events noted. Arterial line was placed in. Able to dialyze today with 1700 mL of fluid clearance. Oxygen requirement decreased to 40%, still requires a lot of pressors. Not much ET tube secretion. No hemoptysis or hematemesis. No hematuria. No diarrhea reported. Still has leg swelling. PHYSICAL EXAMINATION: GENERAL: Sedated, on ventilator. VITAL SIGNS: Temperature is 100, heart rate is 82, respiratory rate is 22, blood pressure is 109/43, pulse ox 100% on ventilator and 40% oxygen. HEENT: Moist mucous membranes. ET tube not much secretion. NECK: Supple, no JVD. LUNGS: Have scattered rhonchi. HEART: S1 and S2. ABDOMEN: Soft, nontender, and nondistended. EXTREMITIES: Still have edema. NEUROLOGICAL: Sedated, arousable. MEDICATIONS: She is on albumin 25% 12.5 g IV every 8 hours, lorazepam 1 mg 3 times a day p.r.n., Cepacol lozenges every 2 hours p.r.n., Colace 200 mg daily, doxycycline 100 mg twice a day, fentanyl IV drip, heparin 5000 units subcutaneously every 12 hours, lidocaine viscous to affected areas every 3 hours, meropenem 500 mg every 12 hours, micafungin is at 100 mg daily, MiraLax 17 g daily, Levophed IV drips, Pepcid 20 mg daily, Pulmicort inhaled twice a day, Solu-Cortef 50 mg every 6 hours, Spiriva inhaled daily, vasopressin as IV drip, Xopenex inhaled every 6 hours, and Zyprexa 2.5 mg daily. LABORATORY DATA: Shows hemoglobin 7.8, hematocrit 25.5, WBC 46,000, platelet is 72. ABG showed pH 7.34, pCO2 of 40, and pO2 of 186, this was on 100% oxygen on ventilator, since then supplemental oxygen is decreased to 40. Sodium 140, potassium 3.9, chloride 103, bicarbonate is 22, BUN 59, creatinine 2.7, glucose 119, calcium is 7.9, magnesium is 2.2, phosphorus 7.4. AST 581, ALT 94, alk phos is 594, albumin is 2.6, procalcitonin is 41. Repeat blood cultures, there is no growth. Urine has some yeast. Chest x-ray done this morning, shows endotracheal tube at the level of the shonna. No significant infiltrate or effusion reported. IMPRESSION AND PLAN: Multi organ failure; history of breast cancer - seems like metastasis to lungs and liver; acute renal failure, dialysis dependent; morbid obesity; history of hypertension. Tolerated dialysis well earlier today, was able to remove 1700 mL of fluid. Restarted on stress dose of Solu-Cortef. Case discussed with the patient's daughter. All the questions answered. Spoke to nursing staff. Continue antibiotics covering health-care associated organism. Continue pressors. setting. Need to watch hemoglobin closely. May need to transfuse. Critical care time is more than 35 minutes. We will order labs for the morning. Thank you and we will follow with you. Dee German MD
[2018-06-18] MEDS: Levalbuterol 1.25 MG/3 ML Inhal Soln UD IH SCH ×4 (03:04→20:03)
[2018-06-18] MEDS: Budesonide 0.5 mg/2 ml Inhal Susp UD IH SCH ×2 (07:09→20:03)
[2018-06-18 07:15] LABS: ARTERIAL BLOOD GAS HCO3 19.1 mmol/L (21-28); ARTERIAL BLOOD GAS HEMOGLOBIN 10.2 g/dL (11.7-17.4); ARTERIAL BLOOD GAS O2 CAPACITY 14.1 mL/dl (16-24); ARTERIAL BLOOD GAS O2 CONTENT 14.2 ML/dl (15-23); ARTERIAL BLOOD GAS O2 SAT 100.8 % (95-98); ARTERIAL BLOOD GAS PCO2 38 mm/Hg (35-45); ARTERIAL BLOOD GAS PH 7.31 (7.35-7.45); ARTERIAL BLOOD GAS TCO2 20.3 mmol.L (22-28)
[2018-06-18] MEDS: Albumin Human 25% (12.5 gm/50 ml) IV SCH ×3 (07:30→21:01)
[2018-06-18 07:34] LABS: BASO % 0.8 % (0.0-3.0); EOS # 0.2 (0.0-0.7); EOS % 0.4 % (1.5-5.0); GRAN # 36.25 (1.4-6.5); LYMPH # 13.4 (1.2-3.4); LYMPH % 25.9 % (22.0-35.0); MEAN CELL VOLUME 80.9 fl (80.0-105.0); MEAN CORPUSCULAR HEMOGLOBIN 24.8 pg (25.0-35.0); MEAN CORPUSCULAR HGB CONC 30.7 g/dl (31.0-37.0); MONO # 1.5 (0.1-0.6); MONO % 2.9 % (1.0-6.0); PLATELET COUNT 60 10^3/uL (120.0-450.0); RBC 4.03 10^6/uL (3.5-6.1); RED CELL DISTRIBUTION WIDTH 20.9 % (11.5-14.5)
[2018-06-18 07:45] LABS: ALB/GLOB RATIO 1.1 (1.1-1.8); ALBUMIN 2.5 g/dL (3.0-4.8); CALCIUM 8.1 mg/dL (8.4-10.5)
[2018-06-18 07:51] LABS: WHITE BLOOD COUNT 51.8 10^3/ul (4.5-11.0)
[2018-06-18] MEDS: Micafungin 100 MG in Sodium Chloride 0.9% 100 ML IV SCH (09:11)
--- NOTE | 2018-06-18 09:48 | PN ---
DATE: 06/18/2018 SUBJECTIVE: The patient is seen and examined at bedside. She appears to be comfortable. Fentanyl was stopped for daily sedation vacation. Pressure support trial initiated, 02/04, with FiO2 40%. The patient tolerates it well. Rapid shallow breathing index is 28 to 35 with tidal volume varying between 450 to 520. OBJECTIVE: VITAL SIGNS: Blood pressure 127/40 with mean arterial pressure varying between 70 and 71. The patient is on norepinephrine 6 mcg/min and vasopressin 0.03 units/min. Oxygen saturation varies between 93% and 96%. Heart rate is 80. End-tidal CO2 on the monitor 40. ENT: Head and neck atraumatic. LUNGS: Clear to auscultation bilaterally. HEART: Regular rate and rhythm. S1, S2 distant. ABDOMEN: Soft, nontender, nondistended. MUSCULOSKELETAL: 1+ bilateral pedal and ankle edema. NEUROLOGICAL: The patient was not observed moving spontaneously. SKIN: Moist. PSYCHIATRIC: The patient opens eyes on command, appears to be tracking objects with her eyes. LABORATORY DATA: WBC 51.8; hemoglobin 10, up from 7.8 (the patient received 1 unit of PRBC during dialysis with hemoglobin jumping from 7.8 to 10), platelet count 60. Sodium 140, potassium 4, chloride 104, carbon dioxide 21, BUN 53, creatinine 2.7 (the patient received session of dialysis yesterday with removal of 1.7 liters). Urine output overnight zero. Glucose 125, AST 378, ALT 79, total bilirubin 8.1 up from 6.5, alkaline phosphatase 618. ABG is 7.31/38/137 on 40% FiO2. MEDICATIONS: Albumin hyperoncotic every 8 hours, Pulmicort, Aranesp, doxycycline, Pepcid, fentanyl drip (now held), heparin 5000 subcu every 12 hours, hydrocortisone 50 mg IV every 6 hours, Xopenex every 6 hours, Ativan p.r.n., micafungin, norepinephrine, Zyprexa p.r.n., vasopressin. Chest x-ray showed low lung volume bilaterally, some vascular congestion bilaterally. ASSESSMENT: This is 62-year-old lady with distributive shock, most likely due to sepsis with likely superimposed acute worsening of liver metastatic disease in the setting of breast cancer with metastases to lungs and liver with multiorgan system failure. Neuro: The patient is undergoing daily sedation vacation.. Fentanyl is off. She opens eyes on command, easily arousable; however, is not moving her extremities spontaneously. Pulmonary: Patient is PST 5/5/40% and doing quite well. CXR a bit "wet"--> spoke with Dr. Goldman: will proceed with HD to optimize her respiratory status before extubation. Whether or not to consider extubating her depends on how she tolerates PST for next 2-3 hrs (while on HD) and whether her mental status continue to improve. If extubated, then to BPAP. I would maintain strict conservative fluid management once her norepinephrine requirement would fall to minimal level. Conservative oxygen management. We will continue with head of bed elevated more than 35 degrees. We will continue with oral hygiene. DVT and GI prophylaxes as part of VAP bundle. Cardiovascular: The patient still requires hemodynamic support with norepinephrine 6 mcg per minute and vasopressin 0.03 units per minute. The patient is on stress dose steroids. ID: The patient has severe leukocytosis which might or might not be related to her metastatic disease rather than sepsis. Sepsis as a source of leukocytosis, cannot be ruled out and likely contributing as well. I will touch base with Dr. Pino (IR) again about removing the Port-A-Cath as potential source of infection even though it was put in fairly recently and no external signs of infection present. ID Service is following her. She is on broad-spectrum antibiotics. Her procalcitonin is highly elevated; however, it may be due to ongoing oliguric MARILYN. Endocrine: We will maintain blood glucose within 140 to 180 range according to N[employer] trial. The patient is on stress dose steroids. Renal: The patient has oliguric MARILYN. She is requiring intermittent dialysis and I would intensify her dialysis to maintain negative fluid balance to optimize her respiratory status and potentially give her best chances at extubation. We will try to avoid hyperchloremia, nephrotoxic medication. Maintain euvolemia and euglycemia. Heme: The patient has anemia and thrombocytopenia, most likely relates to combination of factors including sepsis, metastatic disease. GI: The patient is n.p.o. for now. Once her shock is resolved, we will consider enteral nutrition. The patient has liver metastatic disease. She is on albumin supplementation. No signs of liver synthetic dysfunction. We will continue to be in contact with family every day in order to obtain Advance Directives from them. They are leaning toward DNR at present time and aware about poor prognosis in light of fall above; however, need a bit more time for final decision. Addendum: patient is off of NE and vaso, off of fentanyl-->becoming more anxious and agitated, will start precedex, get HD and re-assess ccm time 40 min Deion Alvarado MD MTDD
[2018-06-18] MEDS ORDERED: Dexmedetomidine 400mcg/100mL 400 MCG/100 ML BOTTLE IV PRN (10:25)
[2018-06-18 10:45] LABS: ARTERIAL BLOOD GAS HEMOGLOBIN 9.7 g/dL (11.7-17.4); ARTERIAL BLOOD GAS O2 CAPACITY 13.4 mL/dl (16-24); ARTERIAL BLOOD GAS O2 CONTENT 13.4 ML/dl (15-23); ARTERIAL BLOOD GAS O2 SAT 99.8 % (95-98); ARTERIAL BLOOD GAS PCO2 31 mm/Hg (35-45); ARTERIAL BLOOD GAS PH 7.32 (7.35-7.45)
--- NOTE | 2018-06-18 11:08 | CP.CCUPN ---
<Iris Bates - Last Filed: 06/18/18 11:54> CCU Subjective - Physician Review Subjective (Free Text): 06/18/18 10:58 Patient seen and examined at bedside. Patient more awake, opens eyes spontaneously, moving upper extremities. Patient remains intubated. Off fentanyl , weaned down on levophed this AM and vasopressin turned off, patient able to maintain MAP>65 via arterial line. No fevers overnight. Patient undergoing pressure support trial. 12 point ROS limited as patient is intubated. CCU Objective - Vital Signs / Intake & Output Vital Signs (Last 4 hours): Vital Signs Temp Resp Pulse Ox 06/18/18 08:00 100.2 F H 06/18/18 07:17 15 98 Intake and Output (Last 8hrs): Intake & Output 06/17/18 06/18/18 06/18/18 22:59 06:59 14:59 Intake Total 1592 429 505 Output Total 1700 0 Balance -108 429 505 Intake: IV 1542 429 505 Antibiotics 250 200 Fentanyl 84 28 Levophed 492 165 Vasopressin 108 36 Oral 0 Albumin 50 Output: Gastric Amount 0 Stomach 0 Urine 0 0 Urine, Voided 0 0 Stool 0 0 Other 1700 - Physical Exam Head: Positive for: Atraumatic Pupils: Positive for: PERRL Extroacular Muscles: Positive for: EOMI Conjunctiva: Positive for: Normal Mouth: Positive for: Moist Mucous Membranes Neck: Positive for: Normal Range of Motion Respiratory/Chest: Positive for: Good Air Exchange, Other (Decreased breath sounds b/l; intubated on pRVC TV 400, PEEP 5, RR 14, 40% FiO2.). Negative for: Clear to Auscultation, Respiratory Distress, Accessory Muscle Use, Wheezes, Retracting, Tender to Palpation Cardiovascular: Positive for: Normal S1, S2 Abdomen: Positive for: Normal Bowel Sounds. Negative for: Tenderness, Rebound, Guarding Upper Extremity: Positive for: Edema (nonpitting, 3+ bilaterally), Other (right wrist arterial line in place; ) Lower Extremity: Positive for: Normal Inspection, Edema, Other (left femoral vein central line in place, site is clean, sterile dressing intact; right arterial line cath in place). Negative for: CALF TENDERNESS, Tenderness, Deformity Neurological: Positive for: GCS=15, CN II-XII Intact Skin: Positive for: Warm, Dry, Normal Color Psychiatric: Positive for: Other (intubated, opens eyes spontaneously, moving upper extremities) - Medications Active Medications: Active Medications Generic Name Dose Route Start Last Admin Trade Name Freq PRN Reason Stop Dose Admin Albumin Human 12.5 gm 06/13/18 12:45 06/18/18 07:30 Albumin Human 25% (12.5 Gm/50 Ml) IV 12.5 gm Q8H TAZ Administration Benzocaine/Menthol 1 rosey 06/10/18 18:45 Cepacol Sore Throat MT Q2H PRN Sore Throat Budesonide 0.5 mg 06/11/18 20:00 06/18/18 07:09 Pulmicort Respules IH 0.5 mg [id number] TAZ Administration Docusate Sodium 200 mg 06/10/18 12:00 06/17/18 09:19 Colace PO Not Given DAILY TAZ Famotidine 20 mg 06/15/18 22:00 06/17/18 21:44 Pepcid PO 20 mg HS TAZ Administration Heparin Sodium (Porcine) 5,000 units 06/08/18 22:00 06/18/18 09:15 Heparin SC 5,000 units Q12 TAZ Administration Protocol Hydrocortisone Sodium Succinate 50 mg 06/17/18 12:00 06/18/18 07:30 Solu-Cortef IVP 50 mg Q6 TAZ Administration Doxycycline Hyclate 100 mg/ 100 mls @ 100 mls/hr 06/12/18 22:00 06/18/18 09: 13 Sodium Chloride IVPB 100 mls/hr Q12 TAZ Administration Protocol Norepinephrine Bitartrate 8 mg 508 mls @ 15.24 mls/hr 06/13/18 08:54 10:12 / Sodium Chloride IV 0 mcg/min .Q24H PRN 0 mls/hr TITRATE PER MD ORDER Titration Protocol 4 MCG/MIN Vasopressin 20 units/ Sodium 101 mls @ 9.09 mls/hr 06/15/18 11:31 06/18/18 00 :30 Chloride IV 9.09 mls/hr .[id number] TAZ Administration Protocol 0.03 U/MIN Fentanyl Citrate 1,000 mcg in 100 mls @ 2 mls/hr 06/16/18 12:05 06/18/18 08: 45 Fentanyl Citrate/Sodium Chloride 1 Mg/100 Ml IV 0 mcg/hr .Q24H PRN 0 mls/hr TITRATE PER MD ORDER Titration Protocol 20 MCG/HR Micafungin Sodium 100 mg/ 100 mls @ 100 mls/hr 06/16/18 13:15 06/18/18 09:11 Sodium Chloride IV 06/23/18 13:16 100 mls/hr DAILY TAZ Administration Protocol Dexmedetomidine HCl 400 mcg in 100 mls @ 6.74 mls/hr 06/18/18 10:25 06/18/18 10:39 Precedex 400mcg/100ml IV 0.2 mcg/kg/hr .[id number] PRN 6.74 mls/hr Agitation Administration Protocol 0.2 MCG/KG/HR Levalbuterol HCl 1.25 mg 06/07/18 02:00 06/18/18 07:09 Xopenex IH 1.25 mg [id number] TAZ Administration Lidocaine HCl 15 ml 06/10/18 18:43 06/10/18 18:51 Lidocaine 2% Viscous PO 15 ml Q3H PRN Administration Sore Throat Lorazepam 1 mg 06/09/18 18:15 06/11/18 23:48 Ativan PO 1 mg TID PRN Administration anxiety/agitation Protocol Olanzapine 2.5 mg 06/13/18 16:39 Zyprexa PO DAILY PRN agitation/psychosis Protocol Polyethylene Glycol 17 gm 06/10/18 12:00 06/17/18 09:19 Miralax PO Not Given DAILY TAZ Tiotropium [place] 18 mcg 06/14/18 15:45 06/17/18 09:19 Spiriva IH Not Given DAILY TAZ - Patient Studies Lab Studies: Microbiology Studies 06/13/18 07:30 Blood Culture - Final Blood-Venous NO GROWTH AFTER 5 DAYS Gram Stain - Final TEST NOT PERFORMED 06/13/18 07:30 Blood Culture - Final Blood-Venous NO GROWTH AFTER 5 DAYS Gram Stain - Final TEST NOT PERFORMED 06/16/18 07:20 Blood Culture - Preliminary Blood-Venous NO GROWTH AFTER 48 HOURS 06/16/18 07:00 Blood Culture - Preliminary Blood-Venous NO GROWTH AFTER 48 HOURS Lab Studies 06/18/18 06/18/18 06/18/18 Range/Units 10:30 07:00 07:00 WBC 51.8 H* (4.5-11.0) 10^3/ul RBC 4.03 (3.5-6.1) 10^6/uL Hgb 10.0 L D (12.0-16.0) g/dL Hct 32.6 L (36.0-48.0) % MCV 80.9 (80.0-105.0) fl MCH 24.8 L (25.0-35.0) pg MCHC 30.7 L (31.0-37.0) g/dl RDW 20.9 H (11.5-14.5) % Plt Count 60 L (120.0-450.0) 10^3/uL Gran % 70.0 H (50.0-68.0) % Lymph % (Auto) 25.9 (22.0-35.0) % Slope % (Auto) 2.9 (1.0-6.0) % Eos % (Auto) 0.4 L (1.5-5.0) % Baso % (Auto) 0.8 (0.0-3.0) % Gran # 36.25 H (1.4-6.5) Lymph # (Auto) 13.4 H (1.2-3.4) Slope # (Auto) 1.5 H (0.1-0.6) Eos # (Auto) 0.2 (0.0-0.7) Baso # (Auto) 0.40 (0.0-2.0) K/mm3 pCO2 31 L (35-45) mm/Hg pO2 97.0 (80-100) mm/Hg HCO3 16.0 L (21-28) mmol/L ABG pH 7.32 L (7.35-7.45) ABG Total CO2 17.0 L (22-28) mmol.L ABG O2 Saturation 99.8 H (95-98) % ABG O2 Content 13.4 L (15-23) ML/dl ABG Base Excess -9.1 L (-2.0-3.0) mmol/L ABG Hemoglobin 9.7 L (11.7-17.4) g/dL ABG Carboxyhemoglobin 1.9 H (0.5-1.5) % POC ABG HHb (Measured) 0.2 (0-5) % ABG Methemoglobin 0.9 (0.0-3.0) % ABG O2 Capacity 13.4 L (16-24) mL/dl Hgb O2 Saturation 97.0 (95.0-98.0) % FiO2 40.0 % Sodium 140 (132-148) mmol/L Potassium 4.0 (3.6-5.0) mmol/L Chloride 104 (98-107) mmol/L Carbon Dioxide 21 (21-33) mmol/L Anion Gap 19 (10-20) BUN 53 H (7-21) mg/dL Creatinine 2.7 H (0.7-1.2) mg/dl Est GFR ( Amer) 22 Est GFR (Non-Af Amer) 18 Random Glucose 125 H (70-110) mg/dL Calcium 8.1 L (8.4-10.5) mg/dL Phosphorus 6.9 H (2.5-4.5) mg/dL Magnesium 2.1 (1.7-2.2) mg/dL Total Bilirubin 8.1 H (0.2-1.3) mg/dL AST 378 H D (14-36) U/L ALT 79 H (7-56) U/L Alkaline Phosphatase 618 H (38-126) U/L Total Protein 4.8 L (5.8-8.3) g/dL Albumin 2.5 L (3.0-4.8) g/dL Globulin 2.3 gm/dL Albumin/Globulin Ratio 1.1 (1.1-1.8) Blood Type Antibody Screen Crossmatch BBK History Checked 06/18/18 06/17/18 Range/Units 06:55 08:25 WBC (4.5-11.0) 10^3/ul RBC (3.5-6.1) 10^6/uL Hgb (12.0-16.0) g/dL Hct (36.0-48.0) % MCV (80.0-105.0) fl MCH (25.0-35.0) pg MCHC (31.0-37.0) g/dl RDW (11.5-14.5) % Plt Count (120.0-450.0) 10^3/uL Gran % (50.0-68.0) % Lymph % (Auto) (22.0-35.0) % Slope % (Auto) (1.0-6.0) % Eos % (Auto) (1.5-5.0) % Baso % (Auto) (0.0-3.0) % Gran # (1.4-6.5) Lymph # (Auto) (1.2-3.4) Slope # (Auto) (0.1-0.6) Eos # (Auto) (0.0-0.7) Baso # (Auto) (0.0-2.0) K/mm3 pCO2 38 (35-45) mm/Hg pO2 137.0 H (80-100) mm/Hg HCO3 19.1 L (21-28) mmol/L ABG pH 7.31 L (7.35-7.45) ABG Total CO2 20.3 L (22-28) mmol.L ABG O2 Saturation 100.8 H (95-98) % ABG O2 Content 14.2 L (15-23) ML/dl ABG Base Excess -6.6 L (-2.0-3.0) mmol/L ABG Hemoglobin 10.2 L (11.7-17.4) g/dL ABG Carboxyhemoglobin 2.4 H (0.5-1.5) % POC ABG HHb (Measured) -0.8 L (0-5) % ABG Methemoglobin 1.3 (0.0-3.0) % ABG O2 Capacity 14.1 L (16-24) mL/dl Hgb O2 Saturation 97.1 (95.0-98.0) % FiO2 40.0 % Sodium (132-148) mmol/L Potassium (3.6-5.0) mmol/L Chloride (98-107) mmol/L Carbon Dioxide (21-33) mmol/L Anion Gap (10-20) BUN (7-21) mg/dL Creatinine (0.7-1.2) mg/dl Est GFR ( Amer) Est GFR (Non-Af Amer) Random Glucose (70-110) mg/dL Calcium (8.4-10.5) mg/dL Phosphorus (2.5-4.5) mg/dL Magnesium (1.7-2.2) mg/dL Total Bilirubin (0.2-1.3) mg/dL AST (14-36) U/L ALT (7-56) U/L Alkaline Phosphatase (38-126) U/L Total Protein (5.8-8.3) g/dL Albumin (3.0-4.8) g/dL Globulin gm/dL Albumin/Globulin Ratio (1.1-1.8) Blood Type O POSITIVE Antibody Screen Negative Crossmatch See Detail BBK History Checked Patient has bt Laboratory Results - last 24 hr 06/17/18 06/18/18 06/18/18 08:25 06:55 07:00 WBC 51.8 H* RBC 4.03 Hgb 10.0 L D Hct 32.6 L MCV 80.9 MCH 24.8 L MCHC 30.7 L RDW 20.9 H Plt Count 60 L Gran % 70.0 H Lymph % (Auto) 25.9 Slope % (Auto) 2.9 Eos % (Auto) 0.4 L Baso % (Auto) 0.8 Gran # 36.25 H Lymph # (Auto) 13.4 H Slope # (Auto) 1.5 H Eos # (Auto) 0.2 Baso # (Auto) 0.40 pCO2 38 pO2 137.0 H HCO3 19.1 L ABG pH 7.31 L ABG Total CO2 20.3 L ABG O2 Saturation 100.8 H ABG O2 Content 14.2 L ABG Base Excess -6.6 L ABG Hemoglobin 10.2 L ABG Carboxyhemoglobin 2.4 H POC ABG HHb (Measured) -0.8 L ABG Methemoglobin 1.3 ABG O2 Capacity 14.1 L Hgb O2 Saturation 97.1 FiO2 40.0 Sodium Potassium Chloride Carbon Dioxide Anion Gap BUN Creatinine Est GFR ( Amer) Est GFR (Non-Af Amer) Random Glucose Calcium Phosphorus Magnesium Total Bilirubin AST ALT Alkaline Phosphatase Total Protein Albumin Globulin Albumin/Globulin Ratio Blood Type O POSITIVE Antibody Screen Negative Crossmatch See Detail BBK History Checked Patient has bt 06/18/18 06/18/18 07:00 10:30 WBC RBC Hgb Hct MCV MCH MCHC RDW Plt Count Gran % Lymph % (Auto) Slope % (Auto) Eos % (Auto) Baso % (Auto) Gran # Lymph # (Auto) Slope # (Auto) Eos # (Auto) Baso # (Auto) pCO2 31 L pO2 97.0 HCO3 16.0 L ABG pH 7.32 L ABG Total CO2 17.0 L ABG O2 Saturation 99.8 H ABG O2 Content 13.4 L ABG Base Excess -9.1 L ABG Hemoglobin 9.7 L ABG Carboxyhemoglobin 1.9 H POC ABG HHb (Measured) 0.2 ABG Methemoglobin 0.9 ABG O2 Capacity 13.4 L Hgb O2 Saturation 97.0 FiO2 40.0 Sodium 140 Potassium 4.0 Chloride 104 Carbon Dioxide 21 Anion Gap 19 BUN 53 H Creatinine 2.7 H Est GFR ( Amer) 22 Est GFR (Non-Af Amer) 18 Random Glucose 125 H Calcium 8.1 L Phosphorus 6.9 H Magnesium 2.1 Total Bilirubin 8.1 H AST 378 H D ALT 79 H Alkaline Phosphatase 618 H Total Protein 4.8 L Albumin 2.5 L Globulin 2.3 Albumin/Globulin Ratio 1.1 Blood Type Antibody Screen Crossmatch BBK History Checked Review of Systems - Review of Systems All systems: reviewed and no additional remarkable complaints except Review of Systems: as per HPI Critical Care Progress Note - Nutrition Nutrition: Nutrition Category Date Time Status NPO Diet [DIET] Diets 06/16/18 Lunch Ordered Assessment/Plan - Assessment and Plan (Free Text) Assessment: 62F with hx of COPD, breast cancer with mets s/p chemo/radiation (08/2017) and left lumpectomy, CKD (baseline Cr 2.6), HTN, bipolar disorder, depression admitted to the ICU for hypovolemic vs septic shock, with MODS including MARILYN, liver failure in setting of metastatic breast cancer. Patient weaned off of levo and vasopressin this AM, off fentanyl, undergoing pressure support trial. Will undergo dialysis today as per renal: Neuro: opens eyes spontaneously, moving upper extremities. intubated. Off fentanyl drip. Started on precedex drip for agitation. Cont to monitor closely. Cardio: Weaned off levo and vasopressin. Maintain MAP>65. Echo 06/12/18 shows normal EF. normal valve function, mild TR. normal IVC size, collapses >50% with inspiration. Hx of HTN. hold home irbesartan and bystolic in setting of low BP. Monitor Pulm: Intubated on prvc mode, on pressure support trial currently - 5/5, 40% FiO2. On stress dose steroids, bronchodilators. Continue with HOB elevation> 35 degrees, aspiration precautions. Continue with protected lung ventilation strategies with TV of 6 ml/kg of IBW, plateau pressure less than 35, head of bed elevation above 35 degrees, bronchodilators, keep oxygenation above 90%, pulm toileting On merrem and Doxy CT chest 06/06 shows moderate size right sided pleural effusion. Nodularity in both lung, indeterminate for malignancy, largest nodule is 1.3 cm (similar findings on chest CT on 05/2018). Mild diffuse subcutaneous edema in the lower abdomen and pelvis. Liver is heterogenous in appearance and appears to contain multiple mets. LE US negative for DVT, no right heart strain on echo; IVC compressible supporting hypovolemic shock differential GI: NPO. continue with pepcid. Stable transaminitis likely 2/2 mets to liver. Gall bladder and liver US; negative except for collapsed GB GI on board. Renal: BUN/Cr 53/2.7 (baseline Cr 2.4) Replace lytes, maintain euvolemia. dialysis today, s/p 1.7L out dialysis yesterday Monitor ID: Initial and repeat blood cultures negative. Urine culture shows yeast, discontinued kraus catheter. On merrem, doxy, Micafungin ID on board. Appreciate recs. Heme: Hgb 10.0 this AM after 1 unit prbc transfusion yesterday. Plts dropping, likely sepsis vs HIT Patient pancytopenic. Sent for HIT ab. f/u results. continue to monitor DVT ppx: scds, Heparin GI ppx: pepcid Case seen and discussed with Dr Alvarado. <Deion Alvarado - Last Filed: 06/18/18 12:04> CCU Objective - Vital Signs / Intake & Output Vital Signs (Last 4 hours): Vital Signs Pulse BP Pulse Ox 06/18/18 11:00 114 H 102/48 L 06/18/18 10:00 109 H 159/57 H 72 L 06/18/18 09:00 78 124/39 L 93 L Intake and Output (Last 8hrs): Intake & Output 06/17/18 06/18/18 06/18/18 22:59 06:59 14:59 Intake Total 1592 429 515 Output Total 1700 0 Balance -108 429 515 Intake: IV 1542 429 515 Antibiotics 250 200 Fentanyl 84 28 Levophed 492 165 Vasopressin 108 36 Oral 0 Albumin 50 Output: Gastric Amount 0 Stomach 0 Urine 0 0 Urine, Voided 0 0 Stool 0 0 Other 1700 Other: Voiding Method Incontinent - Medications Active Medications: Active Medications Generic Name Dose Route Start Last Admin Trade Name Freq PRN Reason Stop Dose Admin Albumin Human 12.5 gm 06/13/18 12:45 06/18/18 07:30 Albumin Human 25% (12.5 Gm/50 Ml) IV 12.5 gm Q8H TAZ Administration Benzocaine/Menthol 1 rosey 06/10/18 18:45 Cepacol Sore Throat MT Q2H PRN Sore Throat Budesonide 0.5 mg 06/11/18 20:00 06/18/18 07:09 Pulmicort Respules IH 0.5 mg [id number] TAZ Administration Docusate Sodium 200 mg 06/10/18 12:00 06/17/18 09:19 Colace PO Not Given DAILY TAZ Famotidine 20 mg 06/15/18 22:00 06/17/18 21:44 Pepcid PO 20 mg HS TAZ Administration Heparin Sodium (Porcine) 5,000 units 06/08/18 22:00 06/18/18 09:15 Heparin SC 5,000 units Q12 TAZ Administration Protocol Hydrocortisone Sodium Succinate 50 mg 06/17/18 12:00 06/18/18 11:44 Solu-Cortef IVP 50 mg Q6 TAZ Administration Doxycycline Hyclate 100 mg/ 100 mls @ 100 mls/hr 06/12/18 22:00 06/18/18 09: 13 Sodium Chloride IVPB 100 mls/hr Q12 TAZ Administration Protocol Norepinephrine Bitartrate 8 mg 508 mls @ 15.24 mls/hr 06/13/18 08:54 10:12 / Sodium Chloride IV 0 mcg/min .Q24H PRN 0 mls/hr TITRATE PER MD ORDER Titration Protocol 4 MCG/MIN Vasopressin 20 units/ Sodium 101 mls @ 9.09 mls/hr 06/15/18 11:31 06/18/18 00 :30 Chloride IV 9.09 mls/hr .[id number] TAZ Administration Protocol 0.03 U/MIN Fentanyl Citrate 1,000 mcg in 100 mls @ 2 mls/hr 06/16/18 12:05 06/18/18 08: 45 Fentanyl Citrate/Sodium Chloride 1 Mg/100 Ml IV 0 mcg/hr .Q24H PRN 0 mls/hr TITRATE PER MD ORDER Titration Protocol 20 MCG/HR Micafungin Sodium 100 mg/ 100 mls @ 100 mls/hr 06/16/18 13:15 06/18/18 09:11 Sodium Chloride IV 06/23/18 13:16 100 mls/hr DAILY TAZ Administration Protocol Dexmedetomidine HCl 400 mcg in 100 mls @ 6.74 mls/hr 06/18/18 10:25 06/18/18 11:35 Precedex 400mcg/100ml IV 0.6 mcg/kg/hr .[id number] PRN 20.221 mls/hr Agitation Titration Protocol 0.2 MCG/KG/HR Levalbuterol HCl 1.25 mg 06/07/18 02:00 06/18/18 07:09 Xopenex IH 1.25 mg [id number] TAZ Administration Lidocaine HCl 15 ml 06/10/18 18:43 06/10/18 18:51 Lidocaine 2% Viscous PO 15 ml Q3H PRN Administration Sore Throat Lorazepam 1 mg 06/09/18 18:15 06/11/18 23:48 Ativan PO 1 mg TID PRN Administration anxiety/agitation Protocol Olanzapine 2.5 mg 06/13/18 16:39 Zyprexa PO DAILY PRN agitation/psychosis Protocol Polyethylene Glycol 17 gm 06/10/18 12:00 06/17/18 09:19 Miralax PO Not Given DAILY TAZ Tiotropium [place] 18 mcg 06/14/18 15:45 06/17/18 09:19 Spiriva IH Not Given DAILY TAZ - Patient Studies Lab Studies: Microbiology Studies 06/13/18 07:30 Blood Culture - Final Blood-Venous NO GROWTH AFTER 5 DAYS Gram Stain - Final TEST NOT PERFORMED 06/13/18 07:30 Blood Culture - Final Blood-Venous NO GROWTH AFTER 5 DAYS Gram Stain - Final TEST NOT PERFORMED 06/16/18 07:20 Blood Culture - Preliminary Blood-Venous NO GROWTH AFTER 48 HOURS 06/16/18 07:00 Blood Culture - Preliminary Blood-Venous NO GROWTH AFTER 48 HOURS Lab Studies 06/18/18 06/18/18 06/18/18 Range/Units 10:30 07:00 07:00 WBC 51.8 H* (4.5-11.0) 10^3/ul RBC 4.03 (3.5-6.1) 10^6/uL Hgb 10.0 L D (12.0-16.0) g/dL Hct 32.6 L (36.0-48.0) % MCV 80.9 (80.0-105.0) fl MCH 24.8 L (25.0-35.0) pg MCHC 30.7 L (31.0-37.0) g/dl RDW 20.9 H (11.5-14.5) % Plt Count 60 L (120.0-450.0) 10^3/uL Gran % 70.0 H (50.0-68.0) % Lymph % (Auto) 25.9 (22.0-35.0) % Slope % (Auto) 2.9 (1.0-6.0) % Eos % (Auto) 0.4 L (1.5-5.0) % Baso % (Auto) 0.8 (0.0-3.0) % Gran # 36.25 H (1.4-6.5) Lymph # (Auto) 13.4 H (1.2-3.4) Slope # (Auto) 1.5 H (0.1-0.6) Eos # (Auto) 0.2 (0.0-0.7) Baso # (Auto) 0.40 (0.0-2.0) K/mm3 pCO2 31 L (35-45) mm/Hg pO2 97.0 (80-100) mm/Hg HCO3 16.0 L (21-28) mmol/L ABG pH 7.32 L (7.35-7.45) ABG Total CO2 17.0 L (22-28) mmol.L ABG O2 Saturation 99.8 H (95-98) % ABG O2 Content 13.4 L (15-23) ML/dl ABG Base Excess -9.1 L (-2.0-3.0) mmol/L ABG Hemoglobin 9.7 L (11.7-17.4) g/dL ABG Carboxyhemoglobin 1.9 H (0.5-1.5) % POC ABG HHb (Measured) 0.2 (0-5) % ABG Methemoglobin 0.9 (0.0-3.0) % ABG O2 Capacity 13.4 L (16-24) mL/dl Hgb O2 Saturation 97.0 (95.0-98.0) % FiO2 40.0 % Sodium 140 (132-148) mmol/L Potassium 4.0 (3.6-5.0) mmol/L Chloride 104 (98-107) mmol/L Carbon Dioxide 21 (21-33) mmol/L Anion Gap 19 (10-20) BUN 53 H (7-21) mg/dL Creatinine 2.7 H (0.7-1.2) mg/dl Est GFR ( Amer) 22 Est GFR (Non-Af Amer) 18 Random Glucose 125 H (70-110) mg/dL Calcium 8.1 L (8.4-10.5) mg/dL Phosphorus 6.9 H (2.5-4.5) mg/dL Magnesium 2.1 (1.7-2.2) mg/dL Total Bilirubin 8.1 H (0.2-1.3) mg/dL AST 378 H D (14-36) U/L ALT 79 H (7-56) U/L Alkaline Phosphatase 618 H (38-126) U/L Total Protein 4.8 L (5.8-8.3) g/dL Albumin 2.5 L (3.0-4.8) g/dL Globulin 2.3 gm/dL Albumin/Globulin Ratio 1.1 (1.1-1.8) Blood Type Antibody Screen Crossmatch BBK History Checked 06/18/18 06/17/18 Range/Units 06:55 08:25 WBC (4.5-11.0) 10^3/ul RBC (3.5-6.1) 10^6/uL Hgb (12.0-16.0) g/dL Hct (36.0-48.0) % MCV (80.0-105.0) fl MCH (25.0-35.0) pg MCHC (31.0-37.0) g/dl RDW (11.5-14.5) % Plt Count (120.0-450.0) 10^3/uL Gran % (50.0-68.0) % Lymph % (Auto) (22.0-35.0) % Slope % (Auto) (1.0-6.0) % Eos % (Auto) (1.5-5.0) % Baso % (Auto) (0.0-3.0) % Gran # (1.4-6.5) Lymph # (Auto) (1.2-3.4) Slope # (Auto) (0.1-0.6) Eos # (Auto) (0.0-0.7) Baso # (Auto) (0.0-2.0) K/mm3 pCO2 38 (35-45) mm/Hg pO2 137.0 H (80-100) mm/Hg HCO3 19.1 L (21-28) mmol/L ABG pH 7.31 L (7.35-7.45) ABG Total CO2 20.3 L (22-28) mmol.L ABG O2 Saturation 100.8 H (95-98) % ABG O2 Content 14.2 L (15-23) ML/dl ABG Base Excess -6.6 L (-2.0-3.0) mmol/L ABG Hemoglobin 10.2 L (11.7-17.4) g/dL ABG Carboxyhemoglobin 2.4 H (0.5-1.5) % POC ABG HHb (Measured) -0.8 L (0-5) % ABG Methemoglobin 1.3 (0.0-3.0) % ABG O2 Capacity 14.1 L (16-24) mL/dl Hgb O2 Saturation 97.1 (95.0-98.0) % FiO2 40.0 % Sodium (132-148) mmol/L Potassium (3.6-5.0) mmol/L Chloride (98-107) mmol/L Carbon Dioxide (21-33) mmol/L Anion Gap (10-20) BUN (7-21) mg/dL Creatinine (0.7-1.2) mg/dl Est GFR ( Amer) Est GFR (Non-Af Amer) Random Glucose (70-110) mg/dL Calcium (8.4-10.5) mg/dL Phosphorus (2.5-4.5) mg/dL Magnesium (1.7-2.2) mg/dL Total Bilirubin (0.2-1.3) mg/dL AST (14-36) U/L ALT (7-56) U/L Alkaline Phosphatase (38-126) U/L Total Protein (5.8-8.3) g/dL Albumin (3.0-4.8) g/dL Globulin gm/dL Albumin/Globulin Ratio (1.1-1.8) Blood Type O POSITIVE Antibody Screen Negative Crossmatch See Detail BBK History Checked Patient has bt Laboratory Results - last 24 hr 06/17/18 06/18/18 06/18/18 08:25 06:55 07:00 WBC 51.8 H* RBC 4.03 Hgb 10.0 L D Hct 32.6 L MCV 80.9 MCH 24.8 L MCHC 30.7 L RDW 20.9 H Plt Count 60 L Gran % 70.0 H Lymph % (Auto) 25.9 Slope % (Auto) 2.9 Eos % (Auto) 0.4 L Baso % (Auto) 0.8 Gran # 36.25 H Lymph # (Auto) 13.4 H Slope # (Auto) 1.5 H Eos # (Auto) 0.2 Baso # (Auto) 0.40 pCO2 38 pO2 137.0 H HCO3 19.1 L ABG pH 7.31 L ABG Total CO2 20.3 L ABG O2 Saturation 100.8 H ABG O2 Content 14.2 L ABG Base Excess -6.6 L ABG Hemoglobin 10.2 L ABG Carboxyhemoglobin 2.4 H POC ABG HHb (Measured) -0.8 L ABG Methemoglobin 1.3 ABG O2 Capacity 14.1 L Hgb O2 Saturation 97.1 FiO2 40.0 Sodium Potassium Chloride Carbon Dioxide Anion Gap BUN Creatinine Est GFR ( Amer) Est GFR (Non-Af Amer) Random Glucose Calcium Phosphorus Magnesium Total Bilirubin AST ALT Alkaline Phosphatase Total Protein Albumin Globulin Albumin/Globulin Ratio Blood Type O POSITIVE Antibody Screen Negative Crossmatch See Detail BBK History Checked Patient has bt 06/18/18 06/18/18 07:00 10:30 WBC RBC Hgb Hct MCV MCH MCHC RDW Plt Count Gran % Lymph % (Auto) Slope % (Auto) Eos % (Auto) Baso % (Auto) Gran # Lymph # (Auto) Slope # (Auto) Eos # (Auto) Baso # (Auto) pCO2 31 L pO2 97.0 HCO3 16.0 L ABG pH 7.32 L ABG Total CO2 17.0 L ABG O2 Saturation 99.8 H ABG O2 Content 13.4 L ABG Base Excess -9.1 L ABG Hemoglobin 9.7 L ABG Carboxyhemoglobin 1.9 H POC ABG HHb (Measured) 0.2 ABG Methemoglobin 0.9 ABG O2 Capacity 13.4 L Hgb O2 Saturation 97.0 FiO2 40.0 Sodium 140 Potassium 4.0 Chloride 104 Carbon Dioxide 21 Anion Gap 19 BUN 53 H Creatinine 2.7 H Est GFR ( Amer) 22 Est GFR (Non-Af Amer) 18 Random Glucose 125 H Calcium 8.1 L Phosphorus 6.9 H Magnesium 2.1 Total Bilirubin 8.1 H AST 378 H D ALT 79 H Alkaline Phosphatase 618 H Total Protein 4.8 L Albumin 2.5 L Globulin 2.3 Albumin/Globulin Ratio 1.1 Blood Type Antibody Screen Crossmatch BBK History Checked Critical Care Progress Note - Nutrition Nutrition: Nutrition Category Date Time Status NPO Diet [DIET] Diets 06/16/18 Lunch Ordered Attending/Attestation - Attestation I have personally seen and examined this patient.: Yes I have fully participated in the care of the patient.: Yes I have reviewed all pertinent clinical information: Yes Notes (Text): 06/18/18 12:[address] Alvarado note
--- NOTE | 2018-06-18 12:14 | PN ---
DATE: 06/18/2018 SUBJECTIVE: The patient is intubated. PHYSICAL EXAMINATION: VITAL SIGNS: Temperature is 100.2, pulse of 114, blood pressure is 102/48, respirations 15. GENERAL: The patient is lying in bed, flat, comfortable. HEENT: No oral lesion. Anicteric sclerae. Moist mucosa. Positive ETT. NECK: No JVD, adenopathy, or thyromegaly. CARDIOVASCULAR: S1 and S2, regular. No murmurs, rubs, or gallops. LUNGS: Clear to auscultation bilaterally. No wheeze, rales, or rhonchi. ABDOMEN: Bowel sounds are positive, soft, nontender and nondistended. EXTREMITIES: No cyanosis, clubbing. The lower extremity, there is 1+ edema. LABORATORY DATA: White count of 51.8, hemoglobin 10. Creatinine is 2.7. ASSESSMENT: 1. Respiratory failure, on ventilator. 2. End-stage renal disease, on hemodialysis. 3. Anemia, status post transfusion. 4. Leukocytosis. 5. Metastatic breast cancer. 6. Hypotension, on pressors. 7. Morbid obesity with a body mass index of 51. PLAN: The patient is critically ill. She remains in the ICU intubated. The patient is on pressors. The patient is on micafungin. She is going to continue with heparin for DVT prophylaxis. She is on doxycycline for antibiotics. The patient is on Xopenex as needed. She is n.p.o. She is being followed by multiple consultants. Xavier Daniels MD
[2018-06-18] MEDS: Fentanyl 1000mcg/100ml NS 1,000 MCG/100 ML BAG IV PRN (12:25)
[2018-06-18] MEDS: Meropenem 500 MG in Sodium Chloride 0.9% 50 ML IVPB SCH ×2 (12:55→21:44)
--- NOTE | 2018-06-18 17:07 | PN ---
DATE: 06/18/2018 SUBJECTIVE: The patient is seen early this morning in 129, bed 6. The patient remains intubated on a ventilator and the patient's family members are asleep in the chair. She does have low-grade fevers. PHYSICAL EXAMINATION: VITAL SIGNS: Temperature is 100.3, blood pressure is 102/40, respiratory rate of , heart rate of 107. HEENT: Unremarkable. NECK: Supple. LUNGS: Have decreased breath sounds. HEART: Normal S1, S2. ABDOMEN: Soft. LABORATORY EXAMINATION: Reveals a white count of 51,000, hemoglobin of 10, platelets of 60 and BUN of 53, creatinine of 2.7. LFTs are elevated. Alk phos is elevated. Procalcitonin is 41 in the face of a creatinine of 2.8. Urinalysis is noted. Toxicology is reviewed. Serology is negative. Hepatitis profile is negative. Dr. Daniels's note is reviewed. Review of the orders reveals the patient to be on doxycycline, micafungin and meropenem. ASSESSMENT AND PLAN: A 62-year-old female with severe sepsis with bilateral healthcare-associated pneumonia, respiratory failure, intubated on a ventilator, renal failure on dialysis, morbid obesity, BMI of 47, hypertension, chronic obstructive lung disease, depression, bipolar, breast cancer with metastases and chemotherapy and radiation, chronic renal failure on day #7 of meropenem, doxycycline and micafungin. We will repeat pancultures as the patient does have a new fevers today. Chest x-ray was done and results are pending. Overall prognosis is quite poor for this patient with metastatic malignancy with multiorgan involvement. We will repeat urinalysis, urine culture, blood, urine and sputum cultures. We will follow with you. Blake Dias MD
--- NOTE | 2018-06-18 17:23 | RAD ---
Date of service: 06/18/2018 HISTORY: intubated COMPARISON: 06/17/2018 FINDINGS: LUNGS: Endotracheal tube is low in position and extends into the right mainstem bronchus. The tube should be withdrawn at least 2 cm PLEURA: No significant pleural effusion identified, no pneumothorax apparent. CARDIOVASCULAR: Mild cardiomegaly. Moderate vascular congestion OSSEOUS STRUCTURES: No significant abnormalities. VISUALIZED UPPER ABDOMEN: Normal. OTHER FINDINGS: I spoke to the patient's nurse at 5:15 p.m. 06/18/2018 IMPRESSION: Endotracheal tube is low in position and extends into the right mainstem bronchus. The tube should be withdrawn at least 2 cm
[2018-06-18] MEDS: Norepinephrine 8 MG in Sodium Chloride 0.9% 500 ML IV PRN (17:30)
--- NOTE | 2018-06-18 22:39 | PN ---
DATE: 06/18/2018 PULMONARY CRITICAL CARE PROGRESS NOTE REFERRING PHYSICIAN: Jessica Flores MD SUBJECTIVE: She is intubated, mildly sedated. Small amount of ET tube secretion. Family is at bedside. No hemoptysis. No hematemesis. No hematuria. No diarrhea reported. Still have anasarca. OBJECTIVE: GENERAL: Intubated, sedated. VITAL SIGNS: Temperature is 100.1, heart rate is 96, respiratory rate is 20, blood pressure is 105/40, pulse ox 94% on ventilator with 40% oxygen. HEENT: Moist mucous membrane. ET tube, not much secretion.' NECK: Supple. LUNGS: Has scattered rhonchi. HEART: S1, S2. ABDOMEN: Soft, nontender, no organomegaly. EXTREMITIES: Still have anasarca. NEUROLOGIC: Sedated and intubated. MEDICATIONS: She is on albumin 20% 12.5 g IV every 8 hours, lorazepam 1 mg three times a day p.r.n. Cepacol lozenges every 2 hours p.r.n., Colace 200 mg daily, doxycycline 100 mg twice a day, also on IV fentanyl, heparin 5000 units subcu every 12 hours, lidocaine viscous to affected area, meropenem 500 mg every 12 hours, micafungin is 100 mg daily, MiraLax 17 g daily, Levophed is off. Pepcid 20 mg at bedtime, Precedex is off, Pulmicort inhaled twice a day, Solu-Cortef 50 mg every 6 hours, Spiriva 1 capsule inhaled daily. Vasopressin is still on, Xopenex inhale every 6 hours, Zyprexa 2.5 mg daily p.r.n. LABORATORY DATA: Shows hemoglobin 10, hematocrit 32.6, WBC 51,000, platelet count is 60. ABG show pH 7.32, pCO2 of 31, O2 of 97, this is on ventilator with 40% oxygen. Sodium 140, potassium 4, chloride 104, bicarbonate 21, BUN 53, creatinine 2.7, glucose 125, calcium is 8.1, phosphorus 6.9, magnesium 2.1, total bili 8.1, AST 378, ALT 79, alk phos is 618. Albumin is 2.5. Microbiology, blood culture been negative. Urine culture has some yeast.. Chest x-ray done this informatics physician liaison showing endotracheal tube is low in position, but extended into the right mainstem bronchus. The tube should be withdrawn 2 cm. IMPRESSION AND PLAN: Multiorgan failure, history of breast cancer, seems like metastasis to the liver and lungs, acute renal failure, dialysis dependent and presently morbid obesity, history of hypertension. Awaiting for dialysis today. Clinically, she will improve, No more Levophed is on board. Vasopressin is still on. Spoke to family at bedside. All their questions answered. Spoke to nursing staff. Hopefully, after dialysis, we will try to work on weaning sedation. Follow up ABG, chest x-ray, CBC, CMP in the morning. Critical care time spent more than 35 minutes. Thank you and we will follow with you. Dee German MD
[2018-06-19] MEDS: Levalbuterol 1.25 MG/3 ML Inhal Soln UD IH SCH ×4 (01:55→19:43)
[2018-06-19] MEDS: Albumin Human 25% (12.5 gm/50 ml) IV SCH ×2 (04:33→12:35)
[2018-06-19 06:12] LABS: ARTERIAL BLOOD GAS HCO3 14.4 mmol/L (21-28); ARTERIAL BLOOD GAS HEMOGLOBIN 9.6 g/dL (11.7-17.4); ARTERIAL BLOOD GAS O2 CAPACITY 13.4 mL/dl (16-24); ARTERIAL BLOOD GAS O2 CONTENT 13.5 ML/dl (15-23); ARTERIAL BLOOD GAS O2 SAT 100.9 % (95-98); ARTERIAL BLOOD GAS PCO2 28 mm/Hg (35-45); ARTERIAL BLOOD GAS PH 7.32 (7.35-7.45); ARTERIAL BLOOD GAS TCO2 15.3 mmol.L (22-28)
[2018-06-19 06:59] LABS: BASO # 0.37 K/mm3 (0.0-2.0); BASO % 0.6 % (0.0-3.0); HEMOGLOBIN 9.5 g/dL (12.0-16.0); MEAN CELL VOLUME 80.6 fl (80.0-105.0); MEAN CORPUSCULAR HEMOGLOBIN 24.9 pg (25.0-35.0); MEAN CORPUSCULAR HGB CONC 30.8 g/dl (31.0-37.0); PLATELET COUNT 56 10^3/uL (120.0-450.0); RBC 3.82 10^6/uL (3.5-6.1); RED CELL DISTRIBUTION WIDTH 21.5 % (11.5-14.5)
[2018-06-19 07:02] LABS: WHITE BLOOD COUNT 57.5 10^3/ul (4.5-11.0)
[2018-06-19] MEDS: Budesonide 0.5 mg/2 ml Inhal Susp UD IH SCH ×2 (07:14→19:43)
[2018-06-19 07:35] LABS: ALB/GLOB RATIO 1.1 (1.1-1.8); ALBUMIN 2.4 g/dL (3.0-4.8); CALCIUM 8.1 mg/dL (8.4-10.5)
[2018-06-19 08:16] LABS: ANISOCYTOSIS SLIGHT; CORRECTED WBC 28.9 K/mm3 (4.5-11.0); LYMPHOCYTE 1 % (22.0-35.0); METAMYELOCYTE 3 %; MONOCYTE 2 % (1.0-6.0); MYELOCYTE 1 %; NEUTROPHIL 93 % (50.0-70.0); NUCLEATED RED BLOOD CELL 99 %; PLATELET ESTIMATE LOW (NORMAL)
--- NOTE | 2018-06-19 08:33 | CP.CCUPN ---
<Mariel Cid - Last Filed: 06/19/18 12:59> CCU Subjective - Physician Review Subjective (Free Text): Patient seen and examined this AM at bedside. T max 101 overnight despite cooling blanket. She is intubated and sedated on fentanyl; tolerating PRVC well. Levophed is still required for BP support, vasopressin no longer needed. Patient is recieving dialysis this AM. Will conduct weaning trial to pressure support after dialysis. 06/19/18 08:30 CCU Objective - Vital Signs / Intake & Output Vital Signs (Last 4 hours): Vital Signs Temp Pulse BP Pulse Ox 06/19/18 08:00 99.3 F 06/19/18 07:00 85 100 06/19/18 06:00 84 100 06/19/18 05:00 89 131/51 L 96 Intake and Output (Last 8hrs): Intake & Output 06/18/18 06/19/18 06/19/18 22:59 06:59 14:59 Intake Total 1056 821 299 Output Total 0 Balance 1056 821 299 Weight 301 lb 4.8 oz Intake: IV 1006 771 299 Antibiotics 250 150 Fentanyl 335 35 Left femoral 100 Levophed 297 387 Vasopressin 32 0 precedex 13 0 Oral 0 Albumin 50 Other 50 Output: Gastric Amount 0 Stomach 0 Stool 0 Other: # Bowel Movements 0 - Physical Exam Head: Positive for: Atraumatic, Normocephalic Pupils: Positive for: PERRL Extroacular Muscles: Positive for: EOMI Conjunctiva: Positive for: Icteric Mouth: Positive for: Moist Mucous Membranes Neck: Positive for: Normal Range of Motion Respiratory/Chest: Positive for: Good Air Exchange, Other (Decreased breath sounds b/l; intubated on pRVC TV 400, PEEP 5, RR 14, 40% FiO2.). Negative for: Clear to Auscultation, Respiratory Distress, Accessory Muscle Use, Wheezes, Retracting, Tender to Palpation Cardiovascular: Positive for: Normal S1, S2 Abdomen: Positive for: Normal Bowel Sounds. Negative for: Tenderness, Rebound, Guarding Upper Extremity: Positive for: Edema (nonpitting, 3+ bilaterally), Other Lower Extremity: Positive for: Normal Inspection, Edema, Other (left femoral vein central line in place, site is clean, sterile dressing intact; right femoral arterial line cath in place). Negative for: CALF TENDERNESS, Tenderness , Deformity Neurological: Positive for: GCS=15, CN II-XII Intact Skin: Positive for: Warm, Erythematous, Other (mild mottling to toes bilaterally , toes cool to touch, Erythematous 3cm x 5cm area right superior posterior thigh with single large bullae 1cm x 1cm, left thigh erythematous 5cm x 4 cm area with multiple small bullae, serous weeping and small 1/5 cm skin tear 2/2 burst bullae) Psychiatric: Positive for: Other (intubated, opens eyes spontaneously, moving upper extremities) - Medications Active Medications: Active Medications Generic Name Dose Route Start Last Admin Trade Name Freq PRN Reason Stop Dose Admin Albumin Human 12.5 gm 06/13/18 12:45 06/19/18 04:33 Albumin Human 25% (12.5 Gm/50 Ml) IV 12.5 gm Q8H TAZ Administration Benzocaine/Menthol 1 rosey 06/10/18 18:45 Cepacol Sore Throat MT Q2H PRN Sore Throat Budesonide 0.5 mg 06/11/18 20:00 06/19/18 07:14 Pulmicort Respules IH 0.5 mg [id number] TAZ Administration Docusate Sodium 200 mg 06/10/18 12:00 06/17/18 09:19 Colace PO Not Given DAILY TAZ Famotidine 20 mg 06/15/18 22:00 06/18/18 21:53 Pepcid PO 20 mg HS TAZ Administration Heparin Sodium (Porcine) 5,000 units 06/08/18 22:00 06/18/18 21:51 Heparin SC 5,000 units Q12 TAZ Administration Protocol Hydrocortisone Sodium Succinate 50 mg 06/17/18 12:00 06/19/18 05:47 Solu-Cortef IVP 50 mg Q6 TAZ Administration Doxycycline Hyclate 100 mg/ 100 mls @ 100 mls/hr 06/12/18 22:00 06/18/18 21: 46 Sodium Chloride IVPB 100 mls/hr Q12 TAZ Administration Protocol Norepinephrine Bitartrate 8 mg 508 mls @ 15.24 mls/hr 06/13/18 08:54 08:12 / Sodium Chloride IV 12 mcg/min .Q24H PRN 45.72 mls/hr TITRATE PER MD ORDER Titration Protocol 4 MCG/MIN Vasopressin 20 units/ Sodium 101 mls @ 9.09 mls/hr 06/15/18 11:31 06/18/18 00 :30 Chloride IV 9.09 mls/hr .[id number] TAZ Administration Protocol 0.03 U/MIN Fentanyl Citrate 1,000 mcg in 100 mls @ 2 mls/hr 06/16/18 12:05 06/18/18 23: 25 Fentanyl Citrate/Sodium Chloride 1 Mg/100 Ml IV 40 mcg/hr .Q24H PRN 4 mls/hr TITRATE PER MD ORDER Titration Protocol 20 MCG/HR Micafungin Sodium 100 mg/ 100 mls @ 100 mls/hr 06/16/18 13:15 06/18/18 09:11 Sodium Chloride IV 06/23/18 13:16 100 mls/hr DAILY TAZ Administration Protocol Dexmedetomidine HCl 400 mcg in 100 mls @ 6.74 mls/hr 06/18/18 10:25 06/18/18 12:25 Precedex 400mcg/100ml IV 0 mcg/kg/hr .[id number] PRN 0 mls/hr Agitation Titration Protocol 0.2 MCG/KG/HR Meropenem 500 mg/ Sodium 50 mls @ 100 mls/hr 06/18/18 12:31 06/18/18 21:44 Chloride IVPB 06/27/18 12:32 100 mls/hr Q12 TAZ Administration Protocol Levalbuterol HCl 1.25 mg 06/07/18 02:00 06/19/18 07:14 Xopenex IH 1.25 mg [id number] TAZ Administration Lidocaine HCl 15 ml 06/10/18 18:43 06/10/18 18:51 Lidocaine 2% Viscous PO 15 ml Q3H PRN Administration Sore Throat Lorazepam 1 mg 06/09/18 18:15 06/11/18 23:48 Ativan PO 1 mg TID PRN Administration anxiety/agitation Protocol Olanzapine 2.5 mg 06/13/18 16:39 Zyprexa PO DAILY PRN agitation/psychosis Protocol Polyethylene Glycol 17 gm 06/10/18 12:00 06/17/18 09:19 Miralax PO Not Given DAILY TAZ Tiotropium [place] 18 mcg 06/14/18 15:45 06/17/18 09:19 Spiriva IH Not Given DAILY TAZ - Patient Studies Lab Studies: Microbiology Studies 06/16/18 07:20 Blood Culture - Preliminary Blood-Venous NO GROWTH AFTER 3 DAYS 06/16/18 07:00 Blood Culture - Preliminary Blood-Venous NO GROWTH AFTER 3 DAYS 06/18/18 13:15 Gram Stain - Final Sputum Induced 06/13/18 07:30 Blood Culture - Final Blood-Venous NO GROWTH AFTER 5 DAYS Gram Stain - Final TEST NOT PERFORMED 06/13/18 07:30 Blood Culture - Final Blood-Venous NO GROWTH AFTER 5 DAYS Gram Stain - Final TEST NOT PERFORMED Lab Studies 06/19/18 06/19/18 06/19/18 Range/Units 05:56 05:00 05:00 WBC 57.5 H* (4.5-11.0) 10^3/ul RBC 3.82 (3.5-6.1) 10^6/uL Hgb 9.5 L (12.0-16.0) g/dL Hct 30.8 L (36.0-48.0) % MCV 80.6 (80.0-105.0) fl MCH 24.9 L (25.0-35.0) pg MCHC 30.8 L (31.0-37.0) g/dl RDW 21.5 H (11.5-14.5) % Plt Count 56 L (120.0-450.0) 10^3/uL Baso % (Auto) 0.6 (0.0-3.0) % Baso # (Auto) 0.37 (0.0-2.0) K/mm3 Neutrophils % (Manual) 93 H (50.0-70.0) % Lymphocytes % (Manual) 1 L (22.0-35.0) % Monocytes % (Manual) 2 (1.0-6.0) % Metamyelocytes % 3 % Myelocytes % 1 % Nucleated RBC % 99 % Platelet Evaluation Low (NORMAL) Anisocytosis (manual) Slight pCO2 28 L (35-45) mm/Hg pO2 140.0 H (80-100) mm/Hg HCO3 14.4 L (21-28) mmol/L ABG pH 7.32 L (7.35-7.45) ABG Total CO2 15.3 L (22-28) mmol.L ABG O2 Saturation 100.9 H (95-98) % ABG O2 Content 13.5 L (15-23) ML/dl ABG Base Excess -10.5 L (-2.0-3.0) mmol/L ABG Hemoglobin 9.6 L (11.7-17.4) g/dL ABG Carboxyhemoglobin 2.1 H (0.5-1.5) % POC ABG HHb (Measured) -0.9 L (0-5) % ABG Methemoglobin 1.0 (0.0-3.0) % ABG O2 Capacity 13.4 L (16-24) mL/dl Hgb O2 Saturation 97.7 (95.0-98.0) % FiO2 40.0 % Sodium 140 (132-148) mmol/L Potassium 4.3 (3.6-5.0) mmol/L Chloride 105 (98-107) mmol/L Carbon Dioxide 17 L (21-33) mmol/L Anion Gap 22 H (10-20) BUN 70 H (7-21) mg/dL Creatinine 3.3 H (0.7-1.2) mg/dl Est GFR ( Amer) 17 Est GFR (Non-Af Amer) 14 Random Glucose 117 H (70-110) mg/dL Calcium 8.1 L (8.4-10.5) mg/dL Phosphorus 7.9 H (2.5-4.5) mg/dL Magnesium 2.2 (1.7-2.2) mg/dL Total Bilirubin 8.5 H (0.2-1.3) mg/dL AST 649 H D (14-36) U/L ALT 84 H (7-56) U/L Alkaline Phosphatase 516 H (38-126) U/L Total Protein 4.5 L (5.8-8.3) g/dL Albumin 2.4 L (3.0-4.8) g/dL Globulin 2.1 gm/dL Albumin/Globulin Ratio 1.1 (1.1-1.8) 06/18/18 Range/Units 10:30 WBC (4.5-11.0) 10^3/ul RBC (3.5-6.1) 10^6/uL Hgb (12.0-16.0) g/dL Hct (36.0-48.0) % MCV (80.0-105.0) fl MCH (25.0-35.0) pg MCHC (31.0-37.0) g/dl RDW (11.5-14.5) % Plt Count (120.0-450.0) 10^3/uL Baso % (Auto) (0.0-3.0) % Baso # (Auto) (0.0-2.0) K/mm3 Neutrophils % (Manual) (50.0-70.0) % Lymphocytes % (Manual) (22.0-35.0) % Monocytes % (Manual) (1.0-6.0) % Metamyelocytes % % Myelocytes % % Nucleated RBC % % Platelet Evaluation (NORMAL) Anisocytosis (manual) pCO2 31 L (35-45) mm/Hg pO2 97.0 (80-100) mm/Hg HCO3 16.0 L (21-28) mmol/L ABG pH 7.32 L (7.35-7.45) ABG Total CO2 17.0 L (22-28) mmol.L ABG O2 Saturation 99.8 H (95-98) % ABG O2 Content 13.4 L (15-23) ML/dl ABG Base Excess -9.1 L (-2.0-3.0) mmol/L ABG Hemoglobin 9.7 L (11.7-17.4) g/dL ABG Carboxyhemoglobin 1.9 H (0.5-1.5) % POC ABG HHb (Measured) 0.2 (0-5) % ABG Methemoglobin 0.9 (0.0-3.0) % ABG O2 Capacity 13.4 L (16-24) mL/dl Hgb O2 Saturation 97.0 (95.0-98.0) % FiO2 40.0 % Sodium (132-148) mmol/L Potassium (3.6-5.0) mmol/L Chloride (98-107) mmol/L Carbon Dioxide (21-33) mmol/L Anion Gap (10-20) BUN (7-21) mg/dL Creatinine (0.7-1.2) mg/dl Est GFR ( Amer) Est GFR (Non-Af Amer) Random Glucose (70-110) mg/dL Calcium (8.4-10.5) mg/dL Phosphorus (2.5-4.5) mg/dL Magnesium (1.7-2.2) mg/dL Total Bilirubin (0.2-1.3) mg/dL AST (14-36) U/L ALT (7-56) U/L Alkaline Phosphatase (38-126) U/L Total Protein (5.8-8.3) g/dL Albumin (3.0-4.8) g/dL Globulin gm/dL Albumin/Globulin Ratio (1.1-1.8) Laboratory Results - last 24 hr 06/18/18 06/19/18 06/19/18 10:30 05:00 05:00 WBC 57.5 H* RBC 3.82 Hgb 9.5 L Hct 30.8 L MCV 80.6 MCH 24.9 L MCHC 30.8 L RDW 21.5 H Plt Count 56 L Baso % (Auto) 0.6 Baso # (Auto) 0.37 Neutrophils % (Manual) 93 H Lymphocytes % (Manual) 1 L Monocytes % (Manual) 2 Metamyelocytes % 3 Myelocytes % 1 Nucleated RBC % 99 Platelet Evaluation Low Anisocytosis (manual) Slight pCO2 31 L pO2 97.0 HCO3 16.0 L ABG pH 7.32 L ABG Total CO2 17.0 L ABG O2 Saturation 99.8 H ABG O2 Content 13.4 L ABG Base Excess -9.1 L ABG Hemoglobin 9.7 L ABG Carboxyhemoglobin 1.9 H POC ABG HHb (Measured) 0.2 ABG Methemoglobin 0.9 ABG O2 Capacity 13.4 L Hgb O2 Saturation 97.0 FiO2 40.0 Sodium 140 Potassium 4.3 Chloride 105 Carbon Dioxide 17 L Anion Gap 22 H BUN 70 H Creatinine 3.3 H Est GFR ( Amer) 17 Est GFR (Non-Af Amer) 14 Random Glucose 117 H Calcium 8.1 L Phosphorus 7.9 H Magnesium 2.2 Total Bilirubin 8.5 H AST 649 H D ALT 84 H Alkaline Phosphatase 516 H Total Protein 4.5 L Albumin 2.4 L Globulin 2.1 Albumin/Globulin Ratio 1.1 06/19/18 05:56 WBC RBC Hgb Hct MCV MCH MCHC RDW Plt Count Baso % (Auto) Baso # (Auto) Neutrophils % (Manual) Lymphocytes % (Manual) Monocytes % (Manual) Metamyelocytes % Myelocytes % Nucleated RBC % Platelet Evaluation Anisocytosis (manual) pCO2 28 L pO2 140.0 H HCO3 14.4 L ABG pH 7.32 L ABG Total CO2 15.3 L ABG O2 Saturation 100.9 H ABG O2 Content 13.5 L ABG Base Excess -10.5 L ABG Hemoglobin 9.6 L ABG Carboxyhemoglobin 2.1 H POC ABG HHb (Measured) -0.9 L ABG Methemoglobin 1.0 ABG O2 Capacity 13.4 L Hgb O2 Saturation 97.7 FiO2 40.0 Sodium Potassium Chloride Carbon Dioxide Anion Gap BUN Creatinine Est GFR ( Amer) Est GFR (Non-Af Amer) Random Glucose Calcium Phosphorus Magnesium Total Bilirubin AST ALT Alkaline Phosphatase Total Protein Albumin Globulin Albumin/Globulin Ratio Review of Systems - Review of Systems Systems not reviewed;Unavailable: Intubated Critical Care Progress Note - Ventilator Checklist Head of Bed 30 Degrees: Yes Daily Sedation Vacation: Yes Daily Assessment of Readiness to Wean: Yes Daily Spontaneous Breathing Trial: Yes PUD Prophalyxis: Yes DVT Prophylaxis: Yes Oral Care with Chlorhexidine Gluconate {CHG}: Yes - Vent Settings MODE:: PRVC TIDAL VOLUME:: 400 RESP RATE:: 14 FIO2:: 40 PEEP:: 5 - Extremities/Vascular Does the Patient have a Central Venous Catheter?: Yes Insertion Site: Femoral Vein (left) Does the Patient need a Central Venous Catheter?: Yes Does the Patient have a Kraus Catheter?: No Does the Patient need a Kraus Catheter?: No - Restraints Justification for Restraints: High risk for removing IV access - Prophylaxis GI Prophylaxis GI: Pepsid - Prophylaxis DVT Prophylaxis DVT: Heparin SQ, SCDs - Nutrition Nutrition: Nutrition Category Date Time Status NPO Diet [DIET] Diets 06/16/18 Lunch Ordered Assessment/Plan - Assessment and Plan (Free Text) Assessment: 62F with hx of COPD, breast cancer with mets s/p chemo/radiation (08/2017) and left lumpectomy, CKD (baseline Cr 2.4), HTN, bipolar disorder, depression admitted to the ICU for hypovolemic vs septic shock, with MODS including MARILYN, liver failure in setting of metastatic breast cancer. Patient changed to phenylephrine this am d/t mottling of toes during dialysis and higher levophed requirement. Dialysis completed this morning with removal of 2L. Will attempt pressure support trial again today. Changed to Argatroban in setting of HIT suspicion (hepatic dosing). Plan: Neuro: opens eyes spontaneously, moving upper extremities. intubated. On fentanyl drip. Unable to maintain BP on Precedex due to high requirement; precedes d.c Cardio: Levophendrine drip to be changed to phenyephrine drip to avoid peripheral ischemia Maintain MAP>65. Echo 06/12/18 shows normal EF. normal valve function, mild TR. normal IVC size, collapses >50% with inspiration. Hx of HTN. hold home irbesartan and bystolic in setting of low BP. Monitor Pulm: Intubated on prvc mode Vt 400, RR14 PEEP 5 Fio2 40%, will repeat pressure support trial today - ABG 7.32/CO2 28/ O2 140/ HCO3 14.4 On 50mg Q12 hydrocortisone Continue with HOB elevation> 35 degrees, aspiration precautions. Continue with protected lung ventilation strategies with TV of 6 ml/kg of IBW, plateau pressure less than 35, head of bed elevation above 35 degrees, bronchodilators, keep oxygenation above 90%, pulm toileting CXR 06/19 CT chest 06/06 shows moderate size right sided pleural effusion. Nodularity in both lung, indeterminate for malignancy, largest nodule is 1.3 cm (similar findings on chest CT on 05/2018). Mild diffuse subcutaneous edema in the lower abdomen and pelvis. Liver is heterogenous in appearance and appears to contain multiple mets. LE US negative for DVT, no right heart strain on echo; IVC compressible supporting hypovolemic shock differential GI: NPO. continue with pepcid. Transaminitis likely 2/2 mets to liver metastasis vs bone etiology vs iatrogenic (possibly 2/2 antibiotic medications) follow up direct Bili, GGT and CK Gall bladder and liver US; negative except for collapsed GB Dietitian consult for feeding recommendations GI on board. Renal: BUN/Cr 70/3.3 (baseline Cr 2.4) Replace lytes, maintain euvolemia. dialysis today, removed 2L Monitor ID: Initial and repeat blood cultures negative x6 Urine culture shows yeast, discontinued kraus catheter Erythematous 3cm x 5cm area right superior posterior thigh with single large bullae 1cm x 1cm, left thigh erythematous 5cm x 4 cm area with multiple small bullae, serous weeping and small 1/5 cm skin tear 2/2 burst bullae D/C all abx ID following Heme: Hgb 9.5 this AM after 1 unit prbc transfusion 06/17 Plts dropping, likely sepsis vs HIT Follow up Flow Cytometry Sent for HIT ab. f/u results continue to monitor DVT ppx: scds, argatroban (d/t HIT suspicion) GI ppx: pepcid - Date & Time Date: 06/19/18 <Paulson,Bilal - Last Filed: 06/19/18 17:13> CCU Objective - Vital Signs / Intake & Output Vital Signs (Last 4 hours): Vital Signs Temp Pulse BP Pulse Ox 06/19/18 17:02 100/32 L 06/19/18 17:00 80 74 L 06/19/18 16:32 102/33 L 06/19/18 16:00 99.9 F H 85 06/19/18 15:30 104/35 L 06/19/18 15:00 88 06/19/18 14:57 105/38 L 06/19/18 14:09 116/37 L 06/19/18 14:00 108 H 83 L Intake and Output (Last 8hrs): Intake & Output 06/19/18 06/19/18 06/19/18 06:59 14:59 22:59 Intake Total 821 544 219 Balance 821 544 219 Weight 301 lb 4.8 oz Intake: IV 771 544 219 Antibiotics 150 Fentanyl 35 Left femoral 100 Levophed 387 Vasopressin 0 precedex 0 Other 50 Other: # Bowel Movements 0 - Medications Active Medications: Active Medications Generic Name Dose Route Start Last Admin Trade Name Freq PRN Reason Stop Dose Admin Benzocaine/Menthol 1 rosey 06/10/18 18:45 Cepacol Sore Throat MT Q2H PRN Sore Throat Budesonide 0.5 mg 06/11/18 20:00 06/19/18 07:14 Pulmicort Respules IH 0.5 mg [id number] TAZ Administration Docusate Sodium 200 mg 06/10/18 12:00 06/17/18 09:19 Colace PO Not Given DAILY TAZ Famotidine 20 mg 06/15/18 22:00 06/18/18 21:53 Pepcid PO 20 mg HS TAZ Administration Hydrocortisone Sodium Succinate 50 mg 09/17/18 22:00 Solu-Cortef IVP Q12 TAZ Fentanyl Citrate 1,000 mcg in 100 mls @ 2 mls/hr 06/16/18 12:05 06/19/18 17: 00 Fentanyl Citrate/Sodium Chloride 1 Mg/100 Ml IV 60 mcg/hr .Q24H PRN 6 mls/hr TITRATE PER MD ORDER Titration Protocol 20 MCG/HR Phenylephrine HCl 40 mg/ 254 mls @ 38.1 mls/hr 06/19/18 11:31 06/19/18 16:39 Sodium Chloride IV 220 mcg/min .Q6H40M PRN 83.82 mls/hr TITRATE PER MD ORDER Titration Protocol 100 MCG/MIN Levalbuterol HCl 1.25 mg 06/07/18 02:00 06/19/18 13:05 Xopenex IH 1.25 mg [id number] TAZ Administration Lidocaine HCl 15 ml 06/10/18 18:43 06/10/18 18:51 Lidocaine 2% Viscous PO 15 ml Q3H PRN Administration Sore Throat Lorazepam 1 mg 06/09/18 18:15 06/11/18 23:48 Ativan PO 1 mg TID PRN Administration anxiety/agitation Protocol Olanzapine 2.5 mg 06/13/18 16:39 Zyprexa PO DAILY PRN agitation/psychosis Protocol Phytonadione 10 mg 06/19/18 15:45 06/19/18 16:21 Vitamin K Inj SC 10 mg DAILY TAZ Administration Polyethylene Glycol 17 gm 06/10/18 12:00 06/17/18 09:19 Miralax PO Not Given DAILY TAZ Tiotropium [place] 18 mcg 06/14/18 15:45 06/17/18 09:19 Spiriva IH Not Given DAILY TAZ - Patient Studies Lab Studies: Microbiology Studies 06/16/18 07:20 Blood Culture - Preliminary Blood-Venous NO GROWTH AFTER 3 DAYS 06/16/18 07:00 Blood Culture - Preliminary Blood-Venous NO GROWTH AFTER 3 DAYS 06/18/18 13:15 Gram Stain - Final Sputum Induced Lab Studies 06/19/18 06/19/18 06/19/18 Range/Units 16:30 13:00 11:50 WBC (4.5-11.0) 10^3/ul RBC (3.5-6.1) 10^6/uL Hgb (12.0-16.0) g/dL Hct (36.0-48.0) % MCV (80.0-105.0) fl MCH (25.0-35.0) pg MCHC (31.0-37.0) g/dl RDW (11.5-14.5) % Plt Count (120.0-450.0) 10^3/uL Baso % (Auto) (0.0-3.0) % Baso # (Auto) (0.0-2.0) K/mm3 Corrected WBC (Man) (4.5-11.0) K/mm3 Neutrophils % (Manual) (50.0-70.0) % Lymphocytes % (Manual) (22.0-35.0) % Monocytes % (Manual) (1.0-6.0) % Metamyelocytes % % Myelocytes % % Nucleated RBC % % Platelet Evaluation (NORMAL) Anisocytosis (manual) Retic Count 3.80 H (0.5-1.5) % PT 98.9 H (9.4-12.5) SECONDS INR 8.24 H* APTT 71.8 H (25.1-36.5) Seconds pCO2 (35-45) mm/Hg pO2 (80-100) mm/Hg HCO3 (21-28) mmol/L ABG pH (7.35-7.45) ABG Total CO2 (22-28) mmol.L ABG O2 Saturation (95-98) % ABG O2 Content (15-23) ML/dl ABG Base Excess (-2.0-3.0) mmol/L ABG Hemoglobin (11.7-17.4) g/dL ABG Carboxyhemoglobin (0.5-1.5) % POC ABG HHb (Measured) (0-5) % ABG Methemoglobin (0.0-3.0) % ABG O2 Capacity (16-24) mL/dl Hgb O2 Saturation (95.0-98.0) % FiO2 % Sodium (132-148) mmol/L Potassium (3.6-5.0) mmol/L Chloride (98-107) mmol/L Carbon Dioxide (21-33) mmol/L Anion Gap (10-20) BUN (7-21) mg/dL Creatinine (0.7-1.2) mg/dl Est GFR ( Amer) Est GFR (Non-Af Amer) Random Glucose (70-110) mg/dL Calcium (8.4-10.5) mg/dL Phosphorus (2.5-4.5) mg/dL Magnesium (1.7-2.2) mg/dL Total Bilirubin (0.2-1.3) mg/dL Direct Bilirubin 7.3 H (0.0-0.4) mg/dL GGT 1046 H (8-78) U/L AST (14-36) U/L ALT (7-56) U/L Alkaline Phosphatase (38-126) U/L Total Creatine Kinase 299 H (35-230) U/L CK-MB (CK-2) 3.5 (0.0-3.6) ng/mL CK-MB (CK-2) % Cancelled Total Protein (5.8-8.3) g/dL Albumin (3.0-4.8) g/dL Globulin gm/dL Albumin/Globulin Ratio (1.1-1.8) 06/19/18 06/19/18 06/19/18 Range/Units 05:56 05:00 05:00 WBC 57.5 H* (4.5-11.0) 10^3/ul RBC 3.82 (3.5-6.1) 10^6/uL Hgb 9.5 L (12.0-16.0) g/dL Hct 30.8 L (36.0-48.0) % MCV 80.6 (80.0-105.0) fl MCH 24.9 L (25.0-35.0) pg MCHC 30.8 L (31.0-37.0) g/dl RDW 21.5 H (11.5-14.5) % Plt Count 56 L (120.0-450.0) 10^3/uL Baso % (Auto) 0.6 (0.0-3.0) % Baso # (Auto) 0.37 (0.0-2.0) K/mm3 Corrected WBC (Man) 28.9 H (4.5-11.0) K/mm3 Neutrophils % (Manual) 93 H (50.0-70.0) % Lymphocytes % (Manual) 1 L (22.0-35.0) % Monocytes % (Manual) 2 (1.0-6.0) % Metamyelocytes % 3 % Myelocytes % 1 % Nucleated RBC % 99 % Platelet Evaluation Low (NORMAL) Anisocytosis (manual) Slight Retic Count (0.5-1.5) % PT (9.4-12.5) SECONDS INR APTT (25.1-36.5) Seconds pCO2 28 L (35-45) mm/Hg pO2 140.0 H (80-100) mm/Hg HCO3 14.4 L (21-28) mmol/L ABG pH 7.32 L (7.35-7.45) ABG Total CO2 15.3 L (22-28) mmol.L ABG O2 Saturation 100.9 H (95-98) % ABG O2 Content 13.5 L (15-23) ML/dl ABG Base Excess -10.5 L (-2.0-3.0) mmol/L ABG Hemoglobin 9.6 L (11.7-17.4) g/dL ABG Carboxyhemoglobin 2.1 H (0.5-1.5) % POC ABG HHb (Measured) -0.9 L (0-5) % ABG Methemoglobin 1.0 (0.0-3.0) % ABG O2 Capacity 13.4 L (16-24) mL/dl Hgb O2 Saturation 97.7 (95.0-98.0) % FiO2 40.0 % Sodium 140 (132-148) mmol/L Potassium 4.3 (3.6-5.0) mmol/L Chloride 105 (98-107) mmol/L Carbon Dioxide 17 L (21-33) mmol/L Anion Gap 22 H (10-20) BUN 70 H (7-21) mg/dL Creatinine 3.3 H (0.7-1.2) mg/dl Est GFR ( Amer) 17 Est GFR (Non-Af Amer) 14 Random Glucose 117 H (70-110) mg/dL Calcium 8.1 L (8.4-10.5) mg/dL Phosphorus 7.9 H (2.5-4.5) mg/dL Magnesium 2.2 (1.7-2.2) mg/dL Total Bilirubin 8.5 H (0.2-1.3) mg/dL Direct Bilirubin (0.0-0.4) mg/dL GGT (8-78) U/L AST 649 H D (14-36) U/L ALT 84 H (7-56) U/L Alkaline Phosphatase 516 H (38-126) U/L Total Creatine Kinase (35-230) U/L CK-MB (CK-2) (0.0-3.6) ng/mL CK-MB (CK-2) % Total Protein 4.5 L (5.8-8.3) g/dL Albumin 2.4 L (3.0-4.8) g/dL Globulin 2.1 gm/dL Albumin/Globulin Ratio 1.1 (1.1-1.8) Laboratory Results - last 24 hr 06/19/18 06/19/18 06/19/18 05:00 05:00 05:56 WBC 57.5 H* RBC 3.82 Hgb 9.5 L Hct 30.8 L MCV 80.6 MCH 24.9 L MCHC 30.8 L RDW 21.5 H Plt Count 56 L Baso % (Auto) 0.6 Baso # (Auto) 0.37 Corrected WBC (Man) 28.9 H Neutrophils % (Manual) 93 H Lymphocytes % (Manual) 1 L Monocytes % (Manual) 2 Metamyelocytes % 3 Myelocytes % 1 Nucleated RBC % 99 Platelet Evaluation Low Anisocytosis (manual) Slight Retic Count PT INR APTT pCO2 28 L pO2 140.0 H HCO3 14.4 L ABG pH 7.32 L ABG Total CO2 15.3 L ABG O2 Saturation 100.9 H ABG O2 Content 13.5 L ABG Base Excess -10.5 L ABG Hemoglobin 9.6 L ABG Carboxyhemoglobin 2.1 H POC ABG HHb (Measured) -0.9 L ABG Methemoglobin 1.0 ABG O2 Capacity 13.4 L Hgb O2 Saturation 97.7 FiO2 40.0 Sodium 140 Potassium 4.3 Chloride 105 Carbon Dioxide 17 L Anion Gap 22 H BUN 70 H Creatinine 3.3 H Est GFR ( Amer) 17 Est GFR (Non-Af Amer) 14 Random Glucose 117 H Calcium 8.1 L Phosphorus 7.9 H Magnesium 2.2 Total Bilirubin 8.5 H Direct Bilirubin GGT AST 649 H D ALT 84 H Alkaline Phosphatase 516 H Total Creatine Kinase CK-MB (CK-2) CK-MB (CK-2) % Total Protein 4.5 L Albumin 2.4 L Globulin 2.1 Albumin/Globulin Ratio 1.1 06/19/18 06/19/18 06/19/18 11:50 13:00 16:30 WBC RBC Hgb Hct MCV MCH MCHC RDW Plt Count Baso % (Auto) Baso # (Auto) Corrected WBC (Man) Neutrophils % (Manual) Lymphocytes % (Manual) Monocytes % (Manual) Metamyelocytes % Myelocytes % Nucleated RBC % Platelet Evaluation Anisocytosis (manual) Retic Count 3.80 H PT 98.9 H INR 8.24 H* APTT 71.8 H pCO2 pO2 HCO3 ABG pH ABG Total CO2 ABG O2 Saturation ABG O2 Content ABG Base Excess ABG Hemoglobin ABG Carboxyhemoglobin POC ABG HHb (Measured) ABG Methemoglobin ABG O2 Capacity Hgb O2 Saturation FiO2 Sodium Potassium Chloride Carbon Dioxide Anion Gap BUN Creatinine Est GFR ( Amer) Est GFR (Non-Af Amer) Random Glucose Calcium Phosphorus Magnesium Total Bilirubin Direct Bilirubin 7.3 H GGT 1046 H AST ALT Alkaline Phosphatase Total Creatine Kinase 299 H CK-MB (CK-2) 3.5 CK-MB (CK-2) % Cancelled Total Protein Albumin Globulin Albumin/Globulin Ratio Critical Care Progress Note - Nutrition Nutrition: Nutrition Category Date Time Status NPO Diet [DIET] Diets 06/16/18 Lunch Ordered Addendum Addendum: 06/19/18 17:08 ICU Attending Addendum: Patient seen and examined. Case reviewed on round with housestaff. Agree with resident note above with the following additions/exceptions: 62F with hx of COPD, breast cancer with mets s/p chemo/radiation (08/2017) and left lumpectomy, CKD (baseline Cr 2.6), HTN, bipolar disorder, depression admitted to the ICU for the second time this admission - this time for shock ( unclear etio). Shock maybe from volume overload. Required more levophed over the weekend and she did receive 1 unit PRBC HD today Manual WBC stable and neg cultures extensive prolonged abx no clear infection stop abx and observe resume is any obv signs of infection plat are dropping concern for HIT, f/u HIT ab toe necrosis may be from thrombosis or levophed, switch to phenylephrine cont fentanyl stop heparin for dvt ppx d/w Dr Mariano (HemOnc) concern for HIT and hyperthrombotic state in the setting of elevated INR advised 10 sq vit k daily x 3 days and starting argatroban f/u INR daily f/u hemolysis panel elevated bili most conjugated GGT elevated like all from liver injury taper steroids HD as per renal Rest of care as noted above. Tim Paulson MD [employer] Critical care time : 47 mins
--- NOTE | 2018-06-19 08:35 | RAD ---
Date of service: 06/18/2018 HISTORY: repositioning of ET tube COMPARISON: 06/18/2018 FINDINGS: The endotracheal tube is low in position and terminates at the shonna. The right central venous catheter terminates in the SVC. A double lumen catheter overlies the left hemithorax. The nasogastric tube terminates in the stomach. LUNGS: The lungs are clear. PLEURA: No significant pleural effusion identified, no pneumothorax apparent. CARDIOVASCULAR: Normal. OSSEOUS STRUCTURES: No significant abnormalities. VISUALIZED UPPER ABDOMEN: Normal. OTHER FINDINGS: There is chronic elevation of the right hemidiaphragm. IMPRESSION: Endotracheal tube is low in position and terminates at the shonna. No acute findings.
--- NOTE | 2018-06-19 08:41 | PN ---
DATE: 06/16/2018 SUBJECTIVE: The patient is seen lying in bed in the ICU. She was intubated earlier. The patient became increasingly uncomfortable, hypotensive, altered during the dialysis treatment. Her pressure remains low. Dialysis was terminated half an hour early. She received two and half hours of dialysis. 750 mL of fluid was removed, but the treatment was terminated early because of increasing discomfort. The patient was intubated. She remains on Levophed at 4 mcg, she is also on vasopressin. Blood pressure remains low. She had an A-line which had to be removed. Multiple family members at bedside. PHYSICAL EXAMINATION: GENERAL: Morbidly obese elderly lady, lying in bed in the ICU. She is on mechanical ventilation. VITAL SIGNS: Blood pressure 78/58, heart rate 105, respiratory rate 44, and temperature 100.9 rectally. HEENT: Normocephalic, atraumatic, positive pallor, positive icterus, some chemosis, pupils reactive to light. NECK: Supple, no JVD. LUNGS: Bilateral equal air entry, bilateral rhonchi, prolonged inspiration. CARDIAC: S1 and S2, regular rate and rhythm, no murmur, no rub. ABDOMEN: Obese, distended, soft, nontender, bowel sounds present. EXTREMITIES: 2+ pitting edema of the lower extremities. INTAKE AND OUTPUT: 1652/1045, 1 L removed on dialysis. LABORATORY DATA: WBC 45, hemoglobin 8.9, hematocrit 28, and platelets 84. Sodium 140, potassium 4.3, chloride 104, CO2 of 21. BUN 66, creatinine 2.8. Glucose 129. Calcium 8.1. Total bili 5.6, AST 480, ALT 85. Albumin 2.9. Urine culture, yeast. Blood cultures, no growth. Chest x-ray, poor film, poor inhibitory effort. CURRENT MEDICATIONS: Albumin 12.5 g IV every 8 hours, Ativan 1 mg, Cepacol, Colace, doxycycline 100 every 12 hours, fentanyl, heparin, meropenem 500 every 12 hours, micafungin 100, MiraLax, Levophed, Pepcid, Pulmicort, Solu-Cortef, Spiriva, vasopressin, Xopenex, and Zyprexa. ASSESSMENT: 1. Severe sepsis, shock, severe hypotension, fevers, leukocytosis, and multiorgan dysfunction. 2. Acute kidney injury superimposed on chronic kidney disease stage III. 3. Healthcare-associated pneumonia? 4. Fungal urinary tract infection? 5. Severe anemia. 6. Anion gap metabolic acidosis. 7. History of chronic obstructive pulmonary disease. 8. History of bipolar disorder. 9. Stage IV lung cancer with lung metastases and liver metastases. 10. Total body volume overload. PLAN: 1. The patient had dialysis early this morning. 750 mL of fluid was removed. The patient became hypotensive and increasingly agitated toward the end of dialysis. Treatment had to be discontinued early and the patient was intubated. 2. Currently, the patient is on Merrem, doxycycline, and cefepime as per ID recommendations. 3. Agree with addition of micafungin. 4. Lane catheter removed. 5. Continue pressor support. 6. Dialysis again tomorrow. 7. Remains critically ill, prognosis guarded. Case discussed with family members at bedside. Case discussed with dialysis staff. Case discussed with ICU staff. More than 35 minutes spent in the care of this critically ill patient. Loreta Giron MD
--- NOTE | 2018-06-19 09:09 | RAD ---
Date of service: 06/19/2018 HISTORY: intubated COMPARISON: 06/18/2018. FINDINGS: Endotracheal tube remains low in position and terminates at the shonna. The right MediPort terminates in the SVC. The nasogastric tube terminates in the LUNGS: There is mild haziness in the right lung. The left lung is clear. PLEURA: No significant pleural effusion identified, no pneumothorax apparent. CARDIOVASCULAR: Normal. OSSEOUS STRUCTURES: Stable. VISUALIZED UPPER ABDOMEN: Normal. OTHER FINDINGS: There is chronic elevation of the right hemidiaphragm IMPRESSION: Endotracheal tube remains low in position and terminates at the shonna. Mild haziness in the right lung may represent mild alveolar pulmonary edema.
--- NOTE | 2018-06-19 10:22 | CP.PCM.PN ---
Subjective - Date & Time of Evaluation Date of Evaluation: 06/18/18 Time of Evaluation: 09:50 - Subjective Subjective: Still having low grade fevers, on the ventilator and being dialyzed. No diarrhea. Objective - Vital Signs/Intake and Output Vital Signs (last 24 hours): Temp Pulse Resp BP Pulse Ox 100.1 F H 96 H 15 105/40 L 94 L 06/18/18 20:00 06/18/18 20:00 06/18/18 07:17 06/18/18 20:00 06/18/18 20:00 Intake and Output: 06/18/18 06/19/18 18:59 06:59 Intake Total 1618 Output Total 0 Balance 1618 - Medications Medications: Current Medications Albumin Human (Albumin Human 25% (12.5 Gm/50 Ml)) 12.5 gm IV Q8H [facility] Last Admin: 06/18/18 21:01 Dose: 12.5 gm Benzocaine/Menthol (Cepacol Sore Throat) 1 rosey MT Q2H PRN PRN Reason: Sore Throat Budesonide (Pulmicort Respules) 0.5 mg IH [id number] [facility] Last Admin: 06/18/18 20:03 Dose: 0.5 mg Docusate Sodium (Colace) 200 mg PO DAILY TAZ Last Admin: 06/17/18 09:19 Dose: Not Given Famotidine (Pepcid) 20 mg PO HS [facility] Last Admin: 06/18/18 21:53 Dose: 20 mg Heparin Sodium (Porcine) (Heparin) 5,000 units SC Q12 TAZ PRN Reason: Protocol Last Admin: 06/18/18 21:51 Dose: 5,000 units Hydrocortisone Sodium Succinate (Solu-Cortef) 50 mg IVP Q6 [facility] Last Admin: 06/18/18 17:01 Dose: 50 mg Doxycycline Hyclate 100 mg/ (Sodium Chloride) 100 mls @ 100 mls/hr IVPB Q12 TAZ PRN Reason: Protocol Last Admin: 06/18/18 21:46 Dose: 100 mls/hr Norepinephrine Bitartrate 8 mg (/ Sodium Chloride) 508 mls @ 15.24 mls/hr IV .Q24H PRN; Protocol; 4 MCG/MIN PRN Reason: TITRATE PER MD ORDER Last Admin: 06/18/18 17:30 Dose: 9 mcg/min, 34.29 mls/hr Vasopressin 20 units/ Sodium (Chloride) 101 mls @ 9.09 mls/hr IV .Q11H7M TAZ; 0.03 U/MIN PRN Reason: Protocol Last Admin: 06/18/18 00:30 Dose: 9.09 mls/hr Fentanyl Citrate (Fentanyl Citrate/Sodium Chloride 1 Mg/100 Ml) 1,000 mcg in 100 mls @ 2 mls/hr IV .Q24H PRN; Protocol; 20 MCG/HR PRN Reason: TITRATE PER MD ORDER Last Titration: 06/18/18 13:35 Dose: 30 mcg/hr, 3 mls/hr Micafungin Sodium 100 mg/ (Sodium Chloride) 100 mls @ 100 mls/hr IV DAILY TAZ PRN Reason: Protocol Stop: 06/23/18 13:16 Last Admin: 06/18/18 09:11 Dose: 100 mls/hr Dexmedetomidine HCl (Precedex 400mcg/100ml) 400 mcg in 100 mls @ 6.74 mls/hr IV .[id number] PRN; Protocol; 0.2 MCG/KG/HR PRN Reason: Agitation Last Titration: 06/18/18 12:25 Dose: 0 mcg/kg/hr, 0 mls/hr Meropenem 500 mg/ Sodium (Chloride) 50 mls @ 100 mls/hr IVPB Q12 TAZ PRN Reason: Protocol Stop: 06/27/18 12:32 Last Admin: 06/18/18 21:44 Dose: 100 mls/hr Levalbuterol HCl (Xopenex) 1.25 mg IH [id number] TAZ Last Admin: 06/18/18 20:03 Dose: 1.25 mg Lidocaine HCl (Lidocaine 2% Viscous) 15 ml PO Q3H PRN PRN Reason: Sore Throat Last Admin: 06/10/18 18:51 Dose: 15 ml Lorazepam (Ativan) 1 mg PO TID PRN; Protocol PRN Reason: anxiety/agitation Last Admin: 06/11/18 23:48 Dose: 1 mg Olanzapine (Zyprexa) 2.5 mg PO DAILY PRN; Protocol PRN Reason: agitation/psychosis Polyethylene Glycol (Miralax) 17 gm PO DAILY TAZ Last Admin: 06/17/18 09:19 Dose: Not Given Tiotropium Clover (Spiriva) 18 mcg IH DAILY TAZ Last Admin: 06/17/18 09:19 Dose: Not Given - Labs Labs: 06/18/18 07:00 06/18/18 07:00 PT 14.0 SECONDS (9.4-12.5) H 06/07/18 06:40 INR 1.21 06/07/18 06:40 APTT 27.5 Seconds (25.1-36.5) 06/09/18 06:45 - Constitutional Appears: Chronically Ill, Other (intubated) - Head Exam Head Exam: NORMAL INSPECTION - ENT Exam Additional comments: ET tube in place - Neck Exam Neck Exam: absent: Meningismus - Respiratory Exam Respiratory Exam: Decreased Breath Sounds Additional comments: dialysis catheter and port in place - Cardiovascular Exam Cardiovascular Exam: +S1, +S2 - GI/Abdominal Exam GI & Abdominal Exam: Soft. absent: Tenderness Assessment and Plan - Assessment and Plan (Free Text) Plan: Assessment leukocytosis with VDRF, acute on chronic renal failure now on dialysis, has been treated for probable sepsis from bilateral HCAP, as well as UTI with yeast associated with Lane catheter morbid obesity with BMI 47 HTN COPD depression with bipolar disorder chronic renal failure breast cancer with metastases S/P chemotherapy and radiation therapy S/P left lumpectomy Plan has had 5 days of Cefepime but patient still with tachypnea (which is multifactorial - pulmonary congestion, probable pneumonia) - currently on Merrem and Doxycycline day 8 and Mycamine for the yeast in the urine - discussed with Dr. Paulson(director of engineering) - no obvious source of infection currently (with most recent ultrasound of abdomen only showing collapsed gallbladder )and leukocytosis may be from metastatic cancer - will consider discontinuing antibiotics and will await repeat blood ordered by Dr. Disa yesterday - will continue to trend WBC count patient now also on dialysis will continue to monitor clinically follow up Cardiology and Renal further recommendations overall prognosis is poor
[2018-06-19 12:13] LABS: BILIRUBIN,DIRECT 7.3 mg/dL (0.0-0.4)
[2018-06-19] MEDS ORDERED: Argatroban 250 MG in Dextrose 5% In Water 250 ML IV SCH ×2 (12:15→18:45)
[2018-06-19] MEDS: Fentanyl 1000mcg/100ml NS 1,000 MCG/100 ML BAG IV PRN (12:36)
[2018-06-19 12:38] LABS: CK-MB 3.5 ng/mL (0.0-3.6)
--- NOTE | 2018-06-19 13:27 | PN ---
DATE: 06/20/2018 SUBJECTIVE: The patient is a 62-year-old, seen and examined, admitted in ICU, remained on the vent. Has shallow breathing. Eyes are jaundiced, minimally responsive. Has mittens on, has endotracheal tube. Still on vasopressors. Currently getting hemodialysis for three hours. PHYSICAL EXAMINATION: VITAL SIGNS: She is afebrile. Pulse 100, respirations 24, blood pressure 94/48. HEART: S1, S2 audible. LUNGS: Bilateral poor respiratory effort. ABDOMEN: Soft, nontender. No rebound, no guarding. NEUROLOGIC: She is minimally responsive. EXTREMITIES: Bilateral legs, +4 edema. LABORATORY DATA: WBC 57.5, hemoglobin 9.5, hematocrit 32.6, platelets 56. Chemistry: Sodium 140, potassium 4.3, chloride 105, CO2 22, BUN 70, creatinine 3.3, blood sugar of 117. AST 649, ALT 484, alk phos 516. ASSESSMENT AND PLAN: 1. Metastatic breast carcinoma. 2. Respiratory failure. 3. Renal failure, on dialysis. 4. Abnormal liver function test secondary to metastases in the liver. 5. Obstructive jaundice. 6. Leukocytosis probably secondary to leukemoid reaction of malignancy. PLAN: At this point, prognosis seems to be very poor. Tried to talk to the family member. They are not ready for hospice yet. We will continue dialysis. We will follow up electrolytes and CBC. Jessica Flores MD
[2018-06-19 13:37] LABS: PARTIAL THROMBOPLASTIN TIME 71.8 Seconds (25.1-36.5); PROTHROMBIN TIME 98.9 SECONDS (9.4-12.5)
[2018-06-19 13:45] LABS: INR 8.24
--- NOTE | 2018-06-19 15:10 | PN ---
DATE: 06/19/2018 REASON FOR CONSULTATION: Followup shortness of breath, hypotension, intubated, on dialysis, low grade fever. SUBJECTIVE: Patient remains intubated. Family is at bedside. PHYSICAL EXAMINATION: GENERAL: Not in apparent distress, intubated, sedated, on norepinephrine drip and getting dialysis. VITAL SIGNS: Temperature afebrile, heart rate 103, blood pressure 94/83. HEENT: PERRLA. Extraocular muscles intact. NECK: Supple. No carotid bruits or thyromegaly. CHEST: Clear to auscultation. HEART: S1, S2, regular. ABDOMEN: Soft. EXTREMITIES: Clubbing and cyanosis negative. LABORATORY DATA: Blood workup as follows: WBC 57.5, hemoglobin 9.5, hematocrit 30.8, platelet count 56. Chemistry shows sodium 140, potassium 4.3, chloride 105, carbon dioxide 17, anion gap of 22, BUN 70, creatinine 3.3. IMPRESSION: A 62-year-old female with past medical history significant for breast cancer with metastasis, hypotension, intubated, endstage renal disease on dialysis, morbid obesity, gross fluid overload. Breast cancer with metastasis to the liver and lung, multiorgan dysfunction, on vasopressin for hypotension. RECOMMENDATIONS: Continue dialysis, continue vasopressin, try to get negative fluid balance as the blood pressure is tolerated. Patient's most recent echo shows preserved LV function, ejection fraction 65%. No aortic regurgitation, trace mitral regurgitation, mild to moderate tricuspid regurgitation, RV systolic pressure 42. Overall, the patient continues to be critical. terminal clerk prognosis is extremely guarded. Continue supportive care. Continue vent management. Continue vasopressin, continue dialysis as blood pressure is tolerated. We will follow with you. Discussed with son. Thank you, Dr. Flores, for providing us the opportunity in taking of Ms. Leydi Strong. Dee Mar MD
[2018-06-19] MEDS: Phytonadione 10 mg/ml Inj (Adult) SC SCH (16:21)
[2018-06-19 17:21] LABS: ARTERIAL BLOOD GAS HEMOGLOBIN 8.3 g/dL (11.7-17.4); ARTERIAL BLOOD GAS O2 CAPACITY 11.7 mL/dl (16-24); ARTERIAL BLOOD GAS O2 CONTENT 11.7 ML/dl (15-23); ARTERIAL BLOOD GAS PCO2 13 mm/Hg (35-45); ARTERIAL BLOOD GAS PH 7.27 (7.35-7.45); ARTERIAL BLOOD GAS TCO2 6.4 mmol.L (22-28)
[2018-06-19] MEDS ORDERED: Sodium Bicarbonate (8.4%) 50 Meq Syringe IVP ONE ×5 (17:51→22:15)
[2018-06-19] MEDS: Norepinephrine 8 MG in Sodium Chloride 0.9% 500 ML IV PRN (18:24)
[2018-06-19 18:42] LABS: VENOUS BLOOD GAS BASE EXCESS -18.3 mmol/L (0.0-2.0); VENOUS BLOOD GAS PO2 89 mm/Hg (30-55)
[2018-06-19 18:59] LABS: VENOUS BLOOD PH 7.12 (7.32-7.43)
[2018-06-19] MEDS ORDERED: Dextrose 50% SYRINGE Inj (50 ml) ONE (19:05)
[2018-06-19] MEDS ORDERED: Dextrose 50% SYRINGE Inj (50 ml) IVP ONE ×4 (19:08→20:20)
[2018-06-19 19:10] LABS: CALCIUM 7.9 mg/dL (8.4-10.5)
[2018-06-19 21:56] LABS: ARTERIAL BLOOD GAS HEMOGLOBIN 7.8 g/dL (11.7-17.4); ARTERIAL BLOOD GAS O2 CONTENT 10.9 ML/dl (15-23); ARTERIAL BLOOD GAS PCO2 19 mm/Hg (35-45); ARTERIAL BLOOD GAS TCO2 6.1 mmol.L (22-28)
[2018-06-19 22:00] VITALS: RESP 20; O2SAT 90
[2018-06-19 22:06] LABS: ARTERIAL BLOOD GAS HCO3 5.5 mmol/L (21-28); ARTERIAL BLOOD GAS PH 7.07 (7.35-7.45)
[2018-06-19 22:21] LABS: CALCIUM 7.8 mg/dL (8.4-10.5)
--- NOTE | 2018-06-19 23:10 | PN ---
DATE: 06/19/2018 PULMONARY CRITICAL CARE PROGRESS NOTE REFERRING PHYSICIAN: Jessica Flores MD SUBJECTIVE: She is intubated and mildly sedated, still on high dose of pressors, status post dialysis, able to take almost 2 liter of fluid, not much ET tube secretion. No hemoptysis, no hematemesis. No hematuria, no diarrhea. Still has anasarca. PHYSICAL EXAMINATION GENERAL: Intubated and sedated. VITAL SIGNS: Temperature is 99.9, heart rate 77, respiratory rate is 30, blood pressure is 100/32, pulse ox is in this morning 97% on 40% oxygen on ventilator. HEENT: Moist mucous membrane. Short thick neck. ET tube, no secretion. LUNGS: Has scattered rhonchi. HEART: S1 and S2. ABDOMEN: Soft, nontender, nondistended. EXTREMITIES: Has anasarca. NEUROLOGIC: Intubated and sedated, arousable with loud verbal stimuli. MEDICATIONS: She is on argatroban, lorazepam 1 mg three times a day p.r.n., Cepacol lozenges every 2 hours p.r.n., Colace 200 mg daily, getting IV fentanyl, lidocaine patch on affected area, MiraLax 17 g daily, getting norepinephrine, also getting Pepcid, midodrine 5 mg three times a day, budesonide twice a day, Solu-Cortef 50 mg twice a day, Spiriva 1 capsule daily, vitamin 100 mg daily, Xopenex inhaled every 6 hours, Zyprexa 2.5 mg daily. LABORATORY DATA: Shows hemoglobin 9.5, hematocrit 30.8, WBC 58,000, platelet is 56. Reticulocyte count 3.8. INR 8.24. Fibrinogen degradation product more than 40. Blood gases this morning showed pH 7.27, PCO2 was 31, O2 was 154. Sodium of 140, potassium 4.3, chloride 105, bicarbonate is 17, BUN 70, creatinine 3.3, glucose 117, calcium is 8.1, phosphorous 7.9, magnesium 2.2, total bilirubin is 8.5. GGT is 1046. AST is 649, [place] [address]. Procalcitonin was 41. Microbiology: Sputum has yeast. Blood culture has been negative. IMPRESSION AND PLAN: Multiorgan failure, has a metastatic breast cancer, history of hypertension, bipolar disorder, depression, renal failure, liver is decompensated, hypotension requiring pressors, severe metabolic acidosis, heparin-induced thrombocytopenia suspicion, on argatroban. Spoke to the patient's son at bedside, all the questions were answered. Also spoke to nursing staff. Continue antibiotics, covering healthcare associated organism. Keep present vent setting. May need bicarbonate with fluids. Follow up CBC, CMP, , ABG and chest x-ray. Critical care time spent more than 35 minutes. Thank you and we will follow with you. Dee Geramn MD
[2018-06-19] MEDS: Dextrose 50% SYRINGE Inj (50 ml) IVP PRN (23:58)
--- NOTE | 2018-06-20 00:18 | PN ---
DATE: 06/19/2018 SUBJECTIVE: She is intubated, sedated. Currently on vasopressor and doing hemodialysis. Toes, bilateral lower extremity are bluish, purplish. Platelet count steadily declining. Today, the platelet count is 56,000. On admission, it was 223,000. REVIEW OF SYSTEMS: Could not be obtained, intubated, sedated. MEDICATIONS: Pulmicort inhalation, IV fluid, Dextrose, Pepcid 20 mg daily, fentanyl drip, hydrocortisone 50 mg every 12 hours, Xopenex every 6 hours, midodrine, Zyprexa, soda bicarb. LABORATORY DATA: White count 57,000, hemoglobin 9.5, hematocrit 30.9, platelet 56,000. Creatinine 3.1, sodium 137, potassium 5.9, lactic acid and calcium 7.8. PHYSICAL EXAMINATION: GENERAL: Intubated, sedated. VITAL SIGNS: Blood pressure 89/27, on pressors. Temperature 99.5, heart rate 88 per minute, respiratory rate 20 per minute, oxygen saturation 90% on ventilator. HEENT: Morbidly obese. CHEST: Bilateral conducted sounds present. CARDIOVASCULAR: S1, S2 normal. No murmur, no gallop. ABDOMEN: Obese. EXTREMITIES: Bilateral purplish toes. Hands in mittens. ASSESSMENT AND PLAN: 1. Stage IV breast cancer, metastatic lesion in the liver and lung. 2. Respiratory failure. 3. Acute renal failure. 4. Thrombocytopenia, likely heparin-induced thrombocytopenia. 5. Increasing leukocytosis. PLAN: Argatroban drip to be started as per protocol. Heparin to be stopped. ____ to be sent today stat. Flow cytometry to be sent stat. ____ on the peripheral blood. Leukocytosis persistent, increasing without any obvious source of infection. She grew yeast in the urine and the sputum. Dr. Dave Pino consulted for port removal. Blood cultures negative for bacteremia. Multiorgan failure. Condition remain critical. Dr. Flores spoke to the family. They are not ready for hospice care yet. We will continue supportive care. Thank you, Dr. Flores for allowing us to participate in Ms. Strong's care. Maricruz Mariano MD
[2018-06-20] MEDS: Dextrose 50% SYRINGE Inj (50 ml) IVP PRN (01:04)
--- NOTE | 2018-06-20 01:18 | PN ---
DATE: 06/19/2018 SUBJECTIVE: The patient is seen in the ICU. She is lying in bed. She is on mechanical ventilation. She is unresponsive. She had dialysis early this morning. 1.7 kg of fluid was removed. Treatment was terminated 30 minutes early because of low blood pressure. Currently, the patient is not on Levophed. Her Levophed was discontinued because of some peripheral cyanosis. She is now on phenylephrine. She remains hypotensive. She remains critically ill. Her antibiotics have been discontinued. Her WBC count remains elevated 57k today. PHYSICAL EXAMINATION: GENERAL: Obese elderly lady, lying in bed in the ICU on mechanical ventilation. Unresponsive. VITAL SIGNS: Blood pressure 105/38, heart rate 107, respiratory rate 24, temperature 100, remains on cooling blanket. HEENT: Normocephalic, atraumatic, positive pallor, positive icterus, chemosis. NECK: Supple, no JVD. LUNGS: Bilateral equal air entry, bilateral rhonchi, equal expansion anteriorly. CARDIAC: S1 and S2, regular rate and rhythm, no murmur, no rub. ABDOMEN: Obese, distended, soft, nontender, bowel sounds present. EXTREMITIES: 3+ pitting edema of the lower extremities. INTAKE AND OUTPUT: 2439/0. LABORATORY DATA: WBC 57.5, hemoglobin 9.5, hematocrit 30.8, and platelets 56. Sodium 140, potassium 4.3, chloride 105, CO2 of 17, BUN 70, creatinine 3.3, glucose 117, calcium 8.1, phosphorus 7.9, magnesium 2.2, direct bilirubin 7.3, GGT 1046. AST 649, ALT 84, LDH 12,161, albumin 2.4. Urine culture from 06/13 showed yeast. Sputum culture from 06/18 showed yeast. Status post blood transfusion 06/17. CURRENT MEDICATIONS: D10 at 20 mL per hour, fentanyl at 50 mcg per hour, Pepcid, ProAmatine 5 t.i.d., Solu-Cortef 50 every 12, vitamin K, Xopenex, Zyprexa. ASSESSMENT: 1. Oligo-anuric acute renal failure, remains dialysis dependent. 2. Systemic inflammatory response syndrome, multiorgan dysfunction, profound hypotension, leukocytosis. 3. Severe anemia. 4. Thrombocytopenia. 5. Worsening leukocytosis. 6. Stage IV breast cancer with lung metastasis, liver metastasis. 7. Liver failure. 8. Respiratory failure. PLAN: 1. Long discussion with ICU staff. Antibiotics have been discontinued because the patient has received more than two weeks of antibiotics without any improvement. 2. The patient had stable dialysis this morning, 1.7 kg of fluid was removed. 3. Remains hypotensive despite pressor support. 4. Case discussed with son at bedside, he understands that the patient is critically ill and prognosis is grimed. 5. Case discussed with dialysis staff, will likely need dialysis tomorrow. More than 35 minutes was spent in the care of this critically ill patient. Loreta Giron MD
[2018-06-20] MEDS: Pantoprazole 40mg/100mL NS 40 MG/100 ML BAG IVPB SCH ×2 (02:15→06:44)
[2018-06-20 02:40] LABS: CALCIUM 7.5 mg/dL (8.4-10.5)
[2018-06-20] MEDS: Levalbuterol 1.25 MG/3 ML Inhal Soln UD IH SCH ×3 (02:48→13:03)
[2018-06-20] MEDS ORDERED: Albuterol 0.083% Inhal Sol (2.5 mg/3 mL) UD INH STA (02:51)
[2018-06-20] MEDS ORDERED: Albuterol 0.5% Inhal Sol (2.5 mg/0.5 ml) UD IH ONE (03:00)
[2018-06-20] MEDS ORDERED: Albuterol 0.083% Inhal Sol (2.5 mg/3 mL) UD ONE (03:11)
[2018-06-20] MEDS: Fentanyl 1000mcg/100ml NS 1,000 MCG/100 ML BAG IV PRN (03:19)
[2018-06-20 06:38] LABS: ARTERIAL BLOOD GAS HEMOGLOBIN 6.4 g/dL (11.7-17.4); ARTERIAL BLOOD GAS O2 CONTENT 8.9 ML/dl (15-23); ARTERIAL BLOOD GAS O2 SAT 98.7 % (95-98); ARTERIAL BLOOD GAS PCO2 26 mm/Hg (35-45); ARTERIAL BLOOD GAS TCO2 5.6 mmol.L (22-28)
[2018-06-20 06:47] LABS: ARTERIAL BLOOD GAS PH 6.87 (7.35-7.45)
[2018-06-20 06:49] LABS: ARTERIAL BLOOD GAS HCO3 4.8 mmol/L (21-28)
[2018-06-20] MEDS ORDERED: Sodium Bicarbonate (8.4%) 50 Meq Syringe IVP ONE ×2 (07:00→07:33)
[2018-06-20 07:24] LABS: CALCIUM 7.4 mg/dL (8.4-10.5)
[2018-06-20 07:25] LABS: ALB/GLOB RATIO 0.9 (1.1-1.8); ALBUMIN 1.7 g/dL (3.0-4.8)
[2018-06-20] MEDS: Budesonide 0.5 mg/2 ml Inhal Susp UD IH SCH (07:34)
[2018-06-20 07:36] LABS: MEAN CORPUSCULAR HEMOGLOBIN 25.6 pg (25.0-35.0); MEAN CORPUSCULAR HGB CONC 28.3 g/dl (31.0-37.0); RBC 2.42 10^6/uL (3.5-6.1); RED CELL DISTRIBUTION WIDTH 23.6 % (11.5-14.5)
[2018-06-20] MEDS: Norepinephrine 8 MG in Sodium Chloride 0.9% 500 ML IV PRN ×2 (07:40)
[2018-06-20 07:41] LABS: HEMOGLOBIN 6.2 g/dL (12.0-16.0); MEAN CELL VOLUME 90.5 fl (80.0-105.0); PLATELET COUNT 24 10^3/uL (120.0-450.0); WHITE BLOOD COUNT 50.3 10^3/ul (4.5-11.0)
[2018-06-20 09:02] LABS: ANISOCYTOSIS SLIGHT; BAND 4 % (0-2); CORRECTED WBC 19.6 K/mm3 (4.5-11.0); EOSINOPHIL 1 % (0.0-3.0); LYMPHOCYTE 10 % (22.0-35.0); METAMYELOCYTE 2 %; MONOCYTE 3 % (1.0-6.0); MYELOCYTE 3 %; NEUTROPHIL 75 % (50.0-70.0); NUCLEATED RED BLOOD CELL 157 %; PLATELET ESTIMATE LOW (NORMAL); POIKILOCYTOSIS SLIGHT; PROMYELOCYTE 2 %
--- NOTE | 2018-06-20 09:37 | RAD ---
Date of service: 06/20/2018 HISTORY: intubated COMPARISON: 06/19/2018 FINDINGS: LUNGS: No active pulmonary disease. PLEURA: There is a large right pleural effusion and elevation of the right hemidiaphragm. Central lines and tubes are unchanged CARDIOVASCULAR: Normal. OSSEOUS STRUCTURES: No significant abnormalities. VISUALIZED UPPER ABDOMEN: Normal. OTHER FINDINGS: None. IMPRESSION: There is a large right pleural effusion and elevation of the right hemidiaphragm. Central lines and tubes are unchanged
--- NOTE | 2018-06-20 09:38 | CP.PCM.CON ---
History of Present Illness - History of Present Illness History of Present Illness: Palliative consult requested by Dr Angela Flores Reason: Goals of care 62 year old female with history of triple negative metastatic breast cancer who presented on 06/06/18 with shortness of breath, lethargy and weakness. She signed out AMA the previous day from [facility] who was treating her for renal insufficiency and shortness of breath. Doppler studies done at [facility] negative for DVT/ VQ low probability of PE. Work up on arrival to [facility] showed worsening renal insufficiency, anemia, and dehydration. CT of chest /ab. showed multiple pulmonary nodules, left axillary adenopathy, mild ascites and subcutaneous edema. Head CT showed chronic periventricular white matter ischemic changes no evidence of hemorrhage or infarct . Echo> moderate left ventricular hypertrophy, LV function 60-65%. EKG:NSR possible AL infarct/age undermined. The patients condition has continued to deteriorate despite aggressive medical interventions. She is seen in the ICU with sepsis,severe anemia and multi organ failure. Intubated/vasopressor/ MARILYN/anuric> HD dependent. PMHx: HTN, HLD, COPD,metastatic triple negative breast cancer s/p chemo and radiation therapy,bipolar disorder,chronic renal insufficiency, anemia gout, obesity. PSH: left breast lumpectomy, left femoral triple lumen. Social History:Never smoker, no alcohol or drug use Family History: Father > lung cancer, Mother > uterine/ovarian cancer. Advance Care Planning: The patient does not have an Advanced Directive Review of Systems: Unable to obtain, intubated/sedated Past Patient History - Infectious Disease Hx of Infectious Diseases: None - Past Social History Smoking Status: Never Smoked - CARDIAC Hx Hypertension: Yes - PULMONARY Hx Chronic Obstructive Pulmonary Disease (COPD): Yes - NEUROLOGICAL Hx Paralysis: No - HEENT Hx HEENT Problems: No - RENAL Hx Renal Failure: Yes - ENDOCRINE/METABOLIC Hx Endocrine Disorders: No - HEMATOLOGICAL/ONCOLOGICAL Hx Blood Transfusions: No Hx Blood Transfusion Reaction: No - INTEGUMENTARY Hx Dermatological Problems: Yes Other/Comment: rcw scar from pac removal 11/15/2017, left breast scar, thick hard toenails, hx r ft cellulitis - MUSCULOSKELETAL/RHEUMATOLOGICAL Hx Musculoskeletal Disorders: Yes - GASTROINTESTINAL Hx Gastrointestinal Disorders: Yes (obese) - GENITOURINARY/GYNECOLOGICAL Hx Reproductive Disorders: No - PSYCHIATRIC Hx Bipolar Disorder: Yes Hx Depression: Yes Hx Substance Use: No - SURGICAL HISTORY Other/Comment: L lumpectomy last chemo 2016 - ANESTHESIA Hx Anesthesia Reactions: No Hx Malignant Hyperthermia: No Meds Allergies/Adverse Reactions: Allergies Allergy/AdvReac Type Severity Reaction Status Date / Time potassium AdvReac Intermediate "FUNNY Verified 06/06/18 14:40 FEELING" - Medications Medications: Current Medications Budesonide (Pulmicort Respules) 0.5 mg IH [id number] [facility] Last Admin: 06/20/18 07:34 Dose: Not Given Dextrose (Dextrose 50% Inj) 50 ml IVP PRN PRN PRN Reason: Hypoglycemia Last Admin: 06/20/18 01:04 Dose: 50 ml Hydrocortisone Sodium Succinate (Solu-Cortef) 50 mg IVP Q12 [facility] Last Admin: 06/19/18 21:02 Dose: 50 mg Fentanyl Citrate (Fentanyl Citrate/Sodium Chloride 1 Mg/100 Ml) 1,000 mcg in 100 mls @ 2 mls/hr IV .Q24H PRN; Protocol; 20 MCG/HR PRN Reason: TITRATE PER MD ORDER Last Titration: 06/20/18 03:40 Dose: 0 mcg/hr, 0 mls/hr Norepinephrine Bitartrate 8 mg (/ Sodium Chloride) 508 mls @ 7.62 mls/hr IV .Q24H PRN; Protocol; 2 MCG/MIN PRN Reason: TITRATE PER MD ORDER Last Admin: 06/20/18 07:40 Dose: 16 mcg/min, 60.96 mls/hr Sodium Bicarbonate 50 meq/ (Sodium Chloride) 1,050 mls @ 100 mls/hr IV .[id number] [facility] Last Admin: 06/19/18 22:49 Dose: 100 mls/hr Pantoprazole Sodium (Protonix 40mg Ivpb) 40 mg in 100 mls @ 20 mls/hr IVPB .Q5H [facility] Last Admin: 06/20/18 06:44 Dose: 20 mls/hr Dextrose (Dextrose 10% In Water) 500 mls @ 75 mls/hr IV .[id number] [facility] Last Admin: 06/20/18 01:00 Dose: 75 mls/hr Calcium Gluconate 1,000 mg/ (Sodium Chloride) 110 mls @ 110 mls/hr IVPB ONCE ONE Stop: 06/20/18 09:59 Last Admin: 06/20/18 08:41 Dose: 110 mls/hr Levalbuterol HCl (Xopenex) 1.25 mg IH [id number] [facility] Last Admin: 06/20/18 07:34 Dose: Not Given Midodrine (Proamatine) 5 mg PO TID [facility] Last Admin: 06/19/18 20:04 Dose: 5 mg Olanzapine (Zyprexa) 2.5 mg PO DAILY PRN; Protocol PRN Reason: agitation/psychosis Phytonadione (Vitamin K Inj) 10 mg SC DAILY [facility] Last Admin: 06/19/18 16:21 Dose: 10 mg Physical Exam - Constitutional Appears: Chronically Ill - Head Exam Head Exam: NORMOCEPHALIC - Eye Exam Eye Exam: Normal appearance, PERRL - ENT Exam ENT Exam: Mucous Membranes Moist - Respiratory Exam Respiratory Exam: Decreased Breath Sounds, Rhonchi - Cardiovascular Exam Cardiovascular Exam: REGULAR RHYTHM, +S1, +S2 - GI/Abdominal Exam GI & Abdominal Exam: Hypoactive Bowel Sounds, Soft - Exam Additional comments: anuric - Extremities Exam Additional comments: pitting edema of extremities - Neurological Exam Neurological exam: Altered - Skin Skin Exam: Dry, Pallor, Warm - Additional Findings Additional findings: Palliative performance scale rating 20% Results - Vital Signs Recent Vital Signs: Last Vital Signs Temp 97.3 F L 06/20/18 06:00 Pulse 75 06/20/18 06:00 Resp 20 06/19/18 20:00 BP 119/32 L 06/20/18 04:00 Pulse Ox 90 L 06/20/18 04:00 - Labs Result Diagrams: 06/20/18 06:00 06/20/18 06:00 Labs: Laboratory Results - last 24 hr 06/17/18 06/17/18 06/19/18 08:25 16:12 11:50 WBC RBC Hgb Hct MCV MCH MCHC RDW Plt Count Corrected WBC (Man) Neutrophils % (Manual) Band Neutrophils % Lymphocytes % (Manual) Monocytes % (Manual) Eosinophils % (Manual) Metamyelocytes % Myelocytes % Promyelocytes % Nucleated RBC % Platelet Evaluation Poikilocytosis (manual Anisocytosis (manual) Retic Count Haptoglobin PT INR APTT Fibrin Degrad Products pCO2 pO2 HCO3 ABG pH ABG Total CO2 ABG O2 Saturation ABG O2 Content ABG Base Excess ABG Hemoglobin ABG Carboxyhemoglobin POC ABG HHb (Measured) ABG Methemoglobin ABG O2 Capacity VBG pH VBG pCO2 VBG HCO3 VBG Total CO2 VBG O2 Sat (Calc) VBG Base Excess VBG Potassium Hgb O2 Saturation Sodium Chloride Glucose Lactate FiO2 Potassium Carbon Dioxide Anion Gap BUN Creatinine Est GFR ( Amer) Est GFR (Non-Af Amer) POC Glucose (mg/dL) Random Glucose Calcium Phosphorus Magnesium Total Bilirubin Direct Bilirubin 7.3 H GGT 1046 H AST ALT Alkaline Phosphatase Lactate Dehydrogenase Total Creatine Kinase 299 H CK-MB (CK-2) 3.5 CK-MB (CK-2) % Cancelled Total Protein Albumin Globulin Albumin/Globulin Ratio Venous Blood Potassium Heparin-induced Plt Ab Negative Blood Type Antibody Screen Crossmatch See Detail BBK History Checked 06/19/18 06/19/18 06/19/18 13:00 16:30 16:30 WBC RBC Hgb Hct MCV MCH MCHC RDW Plt Count Corrected WBC (Man) Neutrophils % (Manual) Band Neutrophils % Lymphocytes % (Manual) Monocytes % (Manual) Eosinophils % (Manual) Metamyelocytes % Myelocytes % Promyelocytes % Nucleated RBC % Platelet Evaluation Poikilocytosis (manual Anisocytosis (manual) Retic Count 3.80 H Haptoglobin 119.2 PT 98.9 H INR 8.24 H* APTT 71.8 H Fibrin Degrad Products pCO2 pO2 HCO3 ABG pH ABG Total CO2 ABG O2 Saturation ABG O2 Content ABG Base Excess ABG Hemoglobin ABG Carboxyhemoglobin POC ABG HHb (Measured) ABG Methemoglobin ABG O2 Capacity VBG pH VBG pCO2 VBG HCO3 VBG Total CO2 VBG O2 Sat (Calc) VBG Base Excess VBG Potassium Hgb O2 Saturation Sodium Chloride Glucose Lactate FiO2 Potassium Carbon Dioxide Anion Gap BUN Creatinine Est GFR ( Amer) Est GFR (Non-Af Amer) POC Glucose (mg/dL) Random Glucose Calcium Phosphorus Magnesium Total Bilirubin Direct Bilirubin GGT AST ALT Alkaline Phosphatase Lactate Dehydrogenase Total Creatine Kinase CK-MB (CK-2) CK-MB (CK-2) % Total Protein Albumin Globulin Albumin/Globulin Ratio Venous Blood Potassium Heparin-induced Plt Ab Blood Type Antibody Screen Crossmatch BBK History Checked 06/19/18 06/19/18 06/19/18 16:30 16:30 17:18 WBC RBC Hgb Hct MCV MCH MCHC RDW Plt Count Corrected WBC (Man) Neutrophils % (Manual) Band Neutrophils % Lymphocytes % (Manual) Monocytes % (Manual) Eosinophils % (Manual) Metamyelocytes % Myelocytes % Promyelocytes % Nucleated RBC % Platelet Evaluation Poikilocytosis (manual Anisocytosis (manual) Retic Count Haptoglobin PT INR APTT Fibrin Degrad Products >40 ug/ml pCO2 13 L* pO2 154.0 H HCO3 6.0 L* ABG pH 7.27 L ABG Total CO2 6.4 L ABG O2 Saturation 100.0 H ABG O2 Content 11.7 L ABG Base Excess -18.9 L ABG Hemoglobin 8.3 L ABG Carboxyhemoglobin 1.3 POC ABG HHb (Measured) 0 ABG Methemoglobin 1.2 ABG O2 Capacity 11.7 L VBG pH VBG pCO2 VBG HCO3 VBG Total CO2 VBG O2 Sat (Calc) VBG Base Excess VBG Potassium Hgb O2 Saturation 97.4 Sodium Chloride Glucose Lactate FiO2 40.0 Potassium Carbon Dioxide Anion Gap BUN Creatinine Est GFR ( Amer) Est GFR (Non-Af Amer) POC Glucose (mg/dL) Random Glucose Calcium Phosphorus Magnesium Total Bilirubin Direct Bilirubin GGT AST ALT Alkaline Phosphatase Lactate Dehydrogenase 43808 H Total Creatine Kinase CK-MB (CK-2) CK-MB (CK-2) % Total Protein Albumin Globulin Albumin/Globulin Ratio Venous Blood Potassium Heparin-induced Plt Ab Blood Type Antibody Screen Crossmatch BBK History Checked 06/19/18 06/19/18 06/19/18 18:36 18:47 19:02 WBC RBC Hgb Hct MCV MCH MCHC RDW Plt Count Corrected WBC (Man) Neutrophils % (Manual) Band Neutrophils % Lymphocytes % (Manual) Monocytes % (Manual) Eosinophils % (Manual) Metamyelocytes % Myelocytes % Promyelocytes % Nucleated RBC % Platelet Evaluation Poikilocytosis (manual Anisocytosis (manual) Retic Count Haptoglobin PT INR APTT Fibrin Degrad Products pCO2 pO2 89 H HCO3 ABG pH ABG Total CO2 ABG O2 Saturation ABG O2 Content ABG Base Excess ABG Hemoglobin ABG Carboxyhemoglobin POC ABG HHb (Measured) ABG Methemoglobin ABG O2 Capacity VBG pH 7.12 L* VBG pCO2 30.0 L VBG HCO3 9.8 L VBG Total CO2 10.7 L VBG O2 Sat (Calc) 98.8 H VBG Base Excess -18.3 L VBG Potassium 6.1 H Hgb O2 Saturation Sodium 136.0 138 Chloride 101.0 102 Glucose 18 L* D Lactate 17.4 H* FiO2 21.0 Potassium 5.9 H* D Carbon Dioxide 11 L Anion Gap 31 H BUN 49 H Creatinine 2.9 H Est GFR ( Amer) 20 Est GFR (Non-Af Amer) 16 POC Glucose (mg/dL) < 20 L* Random Glucose 22 L* D Calcium 7.9 L Phosphorus Magnesium Total Bilirubin Direct Bilirubin GGT AST ALT Alkaline Phosphatase Lactate Dehydrogenase Total Creatine Kinase CK-MB (CK-2) CK-MB (CK-2) % Total Protein Albumin Globulin Albumin/Globulin Ratio Venous Blood Potassium 6.1 H Heparin-induced Plt Ab Blood Type Antibody Screen Crossmatch BBK History Checked 06/19/18 06/19/18 06/19/18 19:25 20:10 20:13 WBC RBC Hgb Hct MCV MCH MCHC RDW Plt Count Corrected WBC (Man) Neutrophils % (Manual) Band Neutrophils % Lymphocytes % (Manual) Monocytes % (Manual) Eosinophils % (Manual) Metamyelocytes % Myelocytes % Promyelocytes % Nucleated RBC % Platelet Evaluation Poikilocytosis (manual Anisocytosis (manual) Retic Count Haptoglobin PT INR APTT Fibrin Degrad Products pCO2 pO2 HCO3 ABG pH ABG Total CO2 ABG O2 Saturation ABG O2 Content ABG Base Excess ABG Hemoglobin ABG Carboxyhemoglobin POC ABG HHb (Measured) ABG Methemoglobin ABG O2 Capacity VBG pH VBG pCO2 VBG HCO3 VBG Total CO2 VBG O2 Sat (Calc) VBG Base Excess VBG Potassium Hgb O2 Saturation Sodium Chloride Glucose Lactate FiO2 Potassium Carbon Dioxide Anion Gap BUN Creatinine Est GFR ( Amer) Est GFR (Non-Af Amer) POC Glucose (mg/dL) 62 L 32 L* 25 L* Random Glucose Calcium Phosphorus Magnesium Total Bilirubin Direct Bilirubin GGT AST ALT Alkaline Phosphatase Lactate Dehydrogenase Total Creatine Kinase CK-MB (CK-2) CK-MB (CK-2) % Total Protein Albumin Globulin Albumin/Globulin Ratio Venous Blood Potassium Heparin-induced Plt Ab Blood Type Antibody Screen Crossmatch BBK History Checked 06/19/18 06/19/18 06/19/18 20:42 21:53 21:57 WBC RBC Hgb Hct MCV MCH MCHC RDW Plt Count Corrected WBC (Man) Neutrophils % (Manual) Band Neutrophils % Lymphocytes % (Manual) Monocytes % (Manual) Eosinophils % (Manual) Metamyelocytes % Myelocytes % Promyelocytes % Nucleated RBC % Platelet Evaluation Poikilocytosis (manual Anisocytosis (manual) Retic Count Haptoglobin PT INR APTT > 400.0 H* Fibrin Degrad Products pCO2 19 L* pO2 133.0 H HCO3 5.5 L* ABG pH 7.07 L* ABG Total CO2 6.1 L ABG O2 Saturation 99.0 H ABG O2 Content 10.9 L ABG Base Excess -22.7 L ABG Hemoglobin 7.8 L ABG Carboxyhemoglobin 0.8 POC ABG HHb (Measured) 1.0 ABG Methemoglobin 1.3 ABG O2 Capacity 11.0 L VBG pH VBG pCO2 VBG HCO3 VBG Total CO2 VBG O2 Sat (Calc) VBG Base Excess VBG Potassium Hgb O2 Saturation 96.9 Sodium Chloride Glucose Lactate FiO2 40.0 Potassium Carbon Dioxide Anion Gap BUN Creatinine Est GFR ( Amer) Est GFR (Non-Af Amer) POC Glucose (mg/dL) 111 H Random Glucose Calcium Phosphorus Magnesium Total Bilirubin Direct Bilirubin GGT AST ALT Alkaline Phosphatase Lactate Dehydrogenase Total Creatine Kinase CK-MB (CK-2) CK-MB (CK-2) % Total Protein Albumin Globulin Albumin/Globulin Ratio Venous Blood Potassium Heparin-induced Plt Ab Blood Type Antibody Screen Crossmatch BBK History Checked 06/19/18 06/19/18 06/19/18 21:57 23:00 23:57 WBC RBC Hgb Hct MCV MCH MCHC RDW Plt Count Corrected WBC (Man) Neutrophils % (Manual) Band Neutrophils % Lymphocytes % (Manual) Monocytes % (Manual) Eosinophils % (Manual) Metamyelocytes % Myelocytes % Promyelocytes % Nucleated RBC % Platelet Evaluation Poikilocytosis (manual Anisocytosis (manual) Retic Count Haptoglobin PT INR APTT Fibrin Degrad Products pCO2 pO2 HCO3 ABG pH ABG Total CO2 ABG O2 Saturation ABG O2 Content ABG Base Excess ABG Hemoglobin ABG Carboxyhemoglobin POC ABG HHb (Measured) ABG Methemoglobin ABG O2 Capacity VBG pH VBG pCO2 VBG HCO3 VBG Total CO2 VBG O2 Sat (Calc) VBG Base Excess VBG Potassium Hgb O2 Saturation Sodium 137 Chloride 102 Glucose Lactate FiO2 Potassium 5.9 H* Carbon Dioxide 7 L D Anion Gap 34 H BUN 49 H Creatinine 3.1 H Est GFR ( Amer) 18 Est GFR (Non-Af Amer) 15 POC Glucose (mg/dL) 38 L* Random Glucose 122 H Calcium 7.8 L Phosphorus 11.8 H Magnesium 2.6 H Total Bilirubin Direct Bilirubin GGT AST ALT Alkaline Phosphatase Lactate Dehydrogenase Total Creatine Kinase CK-MB (CK-2) CK-MB (CK-2) % Total Protein Albumin Globulin Albumin/Globulin Ratio Venous Blood Potassium Heparin-induced Plt Ab Blood Type Antibody Screen Crossmatch BBK History Checked 06/20/18 06/20/18 06/20/18 00:58 01:49 02:00 WBC RBC Hgb Hct MCV MCH MCHC RDW Plt Count Corrected WBC (Man) Neutrophils % (Manual) Band Neutrophils % Lymphocytes % (Manual) Monocytes % (Manual) Eosinophils % (Manual) Metamyelocytes % Myelocytes % Promyelocytes % Nucleated RBC % Platelet Evaluation Poikilocytosis (manual Anisocytosis (manual) Retic Count Haptoglobin PT INR APTT Fibrin Degrad Products pCO2 pO2 HCO3 ABG pH ABG Total CO2 ABG O2 Saturation ABG O2 Content ABG Base Excess ABG Hemoglobin ABG Carboxyhemoglobin POC ABG HHb (Measured) ABG Methemoglobin ABG O2 Capacity VBG pH VBG pCO2 VBG HCO3 VBG Total CO2 VBG O2 Sat (Calc) VBG Base Excess VBG Potassium Hgb O2 Saturation Sodium 138 Chloride 102 Glucose Lactate FiO2 Potassium 6.2 H* Carbon Dioxide 8 L Anion Gap 33 H BUN 50 H Creatinine 3.2 H Est GFR ( Amer) 18 Est GFR (Non-Af Amer) 15 POC Glucose (mg/dL) 34 L* 125 H Random Glucose 182 H Calcium 7.5 L Phosphorus Magnesium Total Bilirubin Direct Bilirubin GGT AST ALT Alkaline Phosphatase Lactate Dehydrogenase Total Creatine Kinase CK-MB (CK-2) CK-MB (CK-2) % Total Protein Albumin Globulin Albumin/Globulin Ratio Venous Blood Potassium Heparin-induced Plt Ab Blood Type Antibody Screen Crossmatch BBK History Checked 06/20/18 06/20/18 06/20/18 03:27 04:25 06:00 WBC 50.3 H* RBC 2.42 L Hgb 6.2 L* D Hct 21.9 L MCV 90.5 D MCH 25.6 MCHC 28.3 L RDW 23.6 H Plt Count 24 L* Corrected WBC (Man) 19.6 H Neutrophils % (Manual) 75 H Band Neutrophils % 4 H Lymphocytes % (Manual) 10 L Monocytes % (Manual) 3 Eosinophils % (Manual) 1 Metamyelocytes % 2 Myelocytes % 3 Promyelocytes % 2 Nucleated RBC % 157 Platelet Evaluation Low Poikilocytosis (manual Slight Anisocytosis (manual) Slight Retic Count Haptoglobin PT INR APTT Fibrin Degrad Products pCO2 pO2 HCO3 ABG pH ABG Total CO2 ABG O2 Saturation ABG O2 Content ABG Base Excess ABG Hemoglobin ABG Carboxyhemoglobin POC ABG HHb (Measured) ABG Methemoglobin ABG O2 Capacity VBG pH VBG pCO2 VBG HCO3 VBG Total CO2 VBG O2 Sat (Calc) VBG Base Excess VBG Potassium Hgb O2 Saturation Sodium Chloride Glucose Lactate FiO2 Potassium Carbon Dioxide Anion Gap BUN Creatinine Est GFR ( Amer) Est GFR (Non-Af Amer) POC Glucose (mg/dL) 82 145 H Random Glucose Calcium Phosphorus Magnesium Total Bilirubin Direct Bilirubin GGT AST ALT Alkaline Phosphatase Lactate Dehydrogenase Total Creatine Kinase CK-MB (CK-2) CK-MB (CK-2) % Total Protein Albumin Globulin Albumin/Globulin Ratio Venous Blood Potassium Heparin-induced Plt Ab Blood Type Antibody Screen Crossmatch BBK History Checked 06/20/18 06/20/18 06/20/18 06:00 06:00 06:34 WBC RBC Hgb Hct MCV MCH MCHC RDW Plt Count Corrected WBC (Man) Neutrophils % (Manual) Band Neutrophils % Lymphocytes % (Manual) Monocytes % (Manual) Eosinophils % (Manual) Metamyelocytes % Myelocytes % Promyelocytes % Nucleated RBC % Platelet Evaluation Poikilocytosis (manual Anisocytosis (manual) Retic Count Haptoglobin PT INR APTT > 400.0 H* Fibrin Degrad Products pCO2 26 L pO2 120.0 H HCO3 4.8 L* ABG pH 6.87 L* ABG Total CO2 5.6 L ABG O2 Saturation 98.7 H ABG O2 Content 8.9 L ABG Base Excess -26.3 L ABG Hemoglobin 6.4 L ABG Carboxyhemoglobin 1.0 POC ABG HHb (Measured) 1.3 ABG Methemoglobin 1.6 ABG O2 Capacity 9.0 L VBG pH VBG pCO2 VBG HCO3 VBG Total CO2 VBG O2 Sat (Calc) VBG Base Excess VBG Potassium Hgb O2 Saturation 96.2 Sodium 138 Chloride 103 Glucose Lactate FiO2 40.0 Potassium 6.6 H* Carbon Dioxide 6 L D Anion Gap 36 H BUN 48 H Creatinine 3.4 H Est GFR ( Amer) 17 Est GFR (Non-Af Amer) 14 POC Glucose (mg/dL) Random Glucose 156 H Calcium 7.4 L Phosphorus 14.4 H Magnesium 2.7 H Total Bilirubin 8.8 H Direct Bilirubin GGT AST 78617 H ALT 929 H Alkaline Phosphatase 390 H D Lactate Dehydrogenase Total Creatine Kinase CK-MB (CK-2) CK-MB (CK-2) % Total Protein 3.6 L Albumin 1.7 L Globulin 1.9 Albumin/Globulin Ratio 0.9 L Venous Blood Potassium Heparin-induced Plt Ab Blood Type Antibody Screen Crossmatch BBK History Checked 06/20/18 06/20/18 06/20/18 06:38 07:42 08:30 WBC RBC Hgb Hct MCV MCH MCHC RDW Plt Count Corrected WBC (Man) Neutrophils % (Manual) Band Neutrophils % Lymphocytes % (Manual) Monocytes % (Manual) Eosinophils % (Manual) Metamyelocytes % Myelocytes % Promyelocytes % Nucleated RBC % Platelet Evaluation Poikilocytosis (manual Anisocytosis (manual) Retic Count Haptoglobin PT INR APTT Fibrin Degrad Products pCO2 pO2 HCO3 ABG pH ABG Total CO2 ABG O2 Saturation ABG O2 Content ABG Base Excess ABG Hemoglobin ABG Carboxyhemoglobin POC ABG HHb (Measured) ABG Methemoglobin ABG O2 Capacity VBG pH VBG pCO2 VBG HCO3 VBG Total CO2 VBG O2 Sat (Calc) VBG Base Excess VBG Potassium Hgb O2 Saturation Sodium Chloride Glucose Lactate FiO2 Potassium Carbon Dioxide Anion Gap BUN Creatinine Est GFR ( Amer) Est GFR (Non-Af Amer) POC Glucose (mg/dL) 76 74 Random Glucose Calcium Phosphorus Magnesium Total Bilirubin Direct Bilirubin GGT AST ALT Alkaline Phosphatase Lactate Dehydrogenase Total Creatine Kinase CK-MB (CK-2) CK-MB (CK-2) % Total Protein Albumin Globulin Albumin/Globulin Ratio Venous Blood Potassium Heparin-induced Plt Ab Blood Type O POSITIVE Antibody Screen Negative Crossmatch See Detail BBK History Checked Patient has bt 06/20/18 08:55 WBC RBC Hgb Hct MCV MCH MCHC RDW Plt Count Corrected WBC (Man) Neutrophils % (Manual) Band Neutrophils % Lymphocytes % (Manual) Monocytes % (Manual) Eosinophils % (Manual) Metamyelocytes % Myelocytes % Promyelocytes % Nucleated RBC % Platelet Evaluation Poikilocytosis (manual Anisocytosis (manual) Retic Count Haptoglobin PT INR APTT Fibrin Degrad Products pCO2 pO2 HCO3 ABG pH ABG Total CO2 ABG O2 Saturation ABG O2 Content ABG Base Excess ABG Hemoglobin ABG Carboxyhemoglobin POC ABG HHb (Measured) ABG Methemoglobin ABG O2 Capacity VBG pH VBG pCO2 VBG HCO3 VBG Total CO2 VBG O2 Sat (Calc) VBG Base Excess VBG Potassium Hgb O2 Saturation Sodium Chloride Glucose Lactate FiO2 Potassium Carbon Dioxide Anion Gap BUN Creatinine Est GFR ( Amer) Est GFR (Non-Af Amer) POC Glucose (mg/dL) 73 Random Glucose Calcium Phosphorus Magnesium Total Bilirubin Direct Bilirubin GGT AST ALT Alkaline Phosphatase Lactate Dehydrogenase Total Creatine Kinase CK-MB (CK-2) CK-MB (CK-2) % Total Protein Albumin Globulin Albumin/Globulin Ratio Venous Blood Potassium Heparin-induced Plt Ab Blood Type Antibody Screen Crossmatch BBK History Checked Assessment & Plan - Assessment and Plan (Free Text) Assessment: 62 year old female with history of metastatic breast cancer and chronic renal insufficiency who is admitted with sepsis,severe anemia, thrombocytopenia,multi organ failure. Intubated/vasopressors/HD. Family at beside. Family decided to make patient DNR this morning prior to our meeting. Family appears to understand the severity of patients condition, son able to verbalize that she is in "organ failure and will likely not survive". I acknowledged that this was a valid point. Preliminary discussion regarding goals of care and quality of life were initiated. I offered them opportunity for withdrawal of medical interventions in favor of comfort care. Although family members stated they understood, it does not appear that all have accepted the gravity of the situation. Psychosocial support provided. Spiritual counseling declined at this time. I met with family later in the day. Family has decided upon terminal extubation and comfort care. Family understands that patient will once life support / medications and other interventions are withdrawn. Family is accepting of this and are requesting that patient be made comfortable. Terminal extubation process explained in detail. End of life counseling provided> Time spent with family in goals of care discussion, 60 minutes Plan: Goals of care and advance care planning Terminal extubation: DNR/DNI Morphine 10 mg IVP now, and 4 mg IVP as needed Ativan 2 mg IVP as needed Psychosocial support for family End of life counseling
[2018-06-20] MEDS: Phytonadione 10 mg/ml Inj (Adult) SC SCH (11:16)
[2018-06-20] MEDS ORDERED: Morphine 4 mg/ml ISec IVP PRN (11:32)
--- NOTE | 2018-06-20 11:54 | CP.CCUPN ---
<Mariel Cid - Last Filed: 06/20/18 13:32> CCU Subjective - Physician Review Subjective (Free Text): ICU progress note for Dr. Khurram Cid, PGY 1 Patient seen and examined this morning at bedside. Her mental status has deteriorated significantly over the past 24 hours. She is not arousable despite being off of the fentanyl for several hours. She continues to be hypotensive and supported on levophed @ 20mcg. Neosynephrine was not providing sufficient BP support therefore levophed was restarted and the katya discontinued. Glucose levels have been labile overnight requiring dextrose injections. Dialysis was not tolerating dialysis d/t hypotension. Argatroban was given for only one hour last night as the patient's PTT was elevated. Overnight patient had 200cc bloody output from NGT and one maroon BM. Started on PPI drip. Worsening acidosis and hypothermia. Discussed extensively with famly the patients code status and the grave nature of her illness. Family decided to make patient DNR. Palliative care was consulted. The decision was made by the family to terminally extubate and pursue comfort care measures. Comfort care measures were completed per Nakia Velasquez. 06/20/18 13:22 CCU Objective - Vital Signs / Intake & Output Vital Signs (Last 4 hours): Vital Signs Temp Pulse BP 06/20/18 11:18 91/24 L 06/20/18 10:00 96.3 F L 83 90/38 L 06/20/18 09:14 113/34 L 06/20/18 09:00 96.3 F L 69 06/20/18 08:00 96.6 F L 75 112/31 L Intake and Output (Last 8hrs): Intake & Output 06/19/18 06/20/18 06/20/18 22:59 06:59 14:59 Intake Total 1416 3141 283 Output Total 200 Balance 1416 2941 283 Weight 319 lb Intake: IV 1416 3141 283 Left femoral 999 1000 Right Subclavian 1320 Output: Gastric Amount 200 Stomach 200 Other: Voiding Method Incontinent # Bowel Movements 1 - Physical Exam Head: Positive for: Atraumatic, Normocephalic Pupils: Positive for: PERRL Conjunctiva: Positive for: Icteric Mouth: Positive for: Moist Mucous Membranes, Other (200 cc bloody output from NGT) Respiratory/Chest: Positive for: Decreased Breath Sounds, Other (Decreased breath sounds b/l; intubated on pRVC TV 400, PEEP 5, RR 14, 40% FiO2.). Negative for: Clear to Auscultation, Respiratory Distress, Accessory Muscle Use , Wheezes, Retracting, Tender to Palpation Cardiovascular: Positive for: Normal S1, S2 Abdomen: Positive for: Normal Bowel Sounds. Negative for: Tenderness, Rebound, Guarding Upper Extremity: Positive for: Edema (nonpitting, 3+ bilaterally), Other Lower Extremity: Positive for: Normal Inspection, Edema, Other (left femoral vein central line in place, site is clean, sterile dressing intact; right femoral arterial line cath in place). Negative for: CALF TENDERNESS, Tenderness , Deformity Neurological: Positive for: Other (GCS3T) Skin: Positive for: Erythematous, Pale, Other (mild mottling to toes bilaterally , toes cool to touch, Erythematous 3cm x 5cm area right superior posterior thigh with single large bullae 1cm x 1cm, left thigh erythematous 5cm x 4 cm area with multiple small bullae, serous weeping and small 1/5 cm skin tear 2/2 burst bullae, diffuse anasarca). Negative for: Warm (cool to touch, hypothermic ) Psychiatric: Positive for: Other (intubated, non arousable) - Medications Active Medications: Active Medications Generic Name Dose Route Start Last Admin Trade Name Freq PRN Reason Stop Dose Admin Sodium Bicarbonate 50 meq/ 1,050 mls @ 100 mls/hr 06/19/18 22:15 06/19/18 22: 49 Sodium Chloride IV 100 mls/hr .[id number] TAZ Administration Levalbuterol HCl 1.25 mg 06/07/18 02:00 06/20/18 07:34 Xopenex IH Not Given [id number] TAZ Morphine Sulfate 4 mg 06/20/18 11:32 Morphine IVP Q1H PRN dyspnea - Patient Studies Lab Studies: Microbiology Studies 06/16/18 07:20 Blood Culture - Preliminary Blood-Venous NO GROWTH AFTER 4 DAYS 06/16/18 07:00 Blood Culture - Preliminary Blood-Venous NO GROWTH AFTER 4 DAYS 06/18/18 13:15 Gram Stain - Final Sputum Induced Sputum Culture - Final Yeast Species Lab Studies 06/20/18 06/20/18 06/20/18 Range/Units 08:55 08:30 07:42 WBC (4.5-11.0) 10^3/ul RBC (3.5-6.1) 10^6/uL Hgb (12.0-16.0) g/dL Hct (36.0-48.0) % MCV (80.0-105.0) fl MCH (25.0-35.0) pg MCHC (31.0-37.0) g/dl RDW (11.5-14.5) % Plt Count (120.0-450.0) 10^3/uL Corrected WBC (Man) (4.5-11.0) K/mm3 Neutrophils % (Manual) (50.0-70.0) % Band Neutrophils % (0-2) % Lymphocytes % (Manual) (22.0-35.0) % Monocytes % (Manual) (1.0-6.0) % Eosinophils % (Manual) (0.0-3.0) % Metamyelocytes % % Myelocytes % % Promyelocytes % % Nucleated RBC % % Platelet Evaluation (NORMAL) Poikilocytosis (manual Anisocytosis (manual) Retic Count (0.5-1.5) % Haptoglobin (30.0-200.0) mg/dL PT (9.4-12.5) SECONDS INR APTT (25.1-36.5) Seconds Fibrin Degrad Products (< 10 ug/mL) pCO2 (35-45) mm/Hg pO2 (80-100) mm/Hg HCO3 (21-28) mmol/L ABG pH (7.35-7.45) ABG Total CO2 (22-28) mmol.L ABG O2 Saturation (95-98) % ABG O2 Content (15-23) ML/dl ABG Base Excess (-2.0-3.0) mmol/L ABG Hemoglobin (11.7-17.4) g/dL ABG Carboxyhemoglobin (0.5-1.5) % POC ABG HHb (Measured) (0-5) % ABG Methemoglobin (0.0-3.0) % ABG O2 Capacity (16-24) mL/dl VBG pH (7.32-7.43) VBG pCO2 (40-60) VBG HCO3 (21-28) mmol/l VBG Total CO2 (22-28) mmol.L VBG O2 Sat (Calc) (40-65) % VBG Base Excess (0.0-2.0) mmol/L VBG Potassium (3.6-5.2) mmol/L Hgb O2 Saturation (95.0-98.0) % Sodium (132-148) mmol/L Chloride (98-107) mmol/L Glucose (65-105) mg/dl Lactate (0.7-2.1) mmol/L FiO2 % Potassium (3.6-5.0) mmol/L Carbon Dioxide (21-33) mmol/L Anion Gap (10-20) BUN (7-21) mg/dL Creatinine (0.7-1.2) mg/dl Est GFR ( Amer) Est GFR (Non-Af Amer) POC Glucose (mg/dL) 73 74 (65-110) mg/dL Random Glucose (70-110) mg/dL Calcium (8.4-10.5) mg/dL Phosphorus (2.5-4.5) mg/dL Magnesium (1.7-2.2) mg/dL Total Bilirubin (0.2-1.3) mg/dL Direct Bilirubin (0.0-0.4) mg/dL GGT (8-78) U/L AST (14-36) U/L ALT (7-56) U/L Alkaline Phosphatase (38-126) U/L Lactate Dehydrogenase (333-699) U/L Total Creatine Kinase (35-230) U/L CK-MB (CK-2) (0.0-3.6) ng/mL CK-MB (CK-2) % Total Protein (5.8-8.3) g/dL Albumin (3.0-4.8) g/dL Globulin gm/dL Albumin/Globulin Ratio (1.1-1.8) Venous Blood Potassium (3.6-5.2) mmol/L Heparin-induced Plt Ab (Negative) Blood Type O POSITIVE Antibody Screen Negative Crossmatch See Detail BBK History Checked Patient has bt 06/20/18 06/20/18 06/20/18 Range/Units 06:38 06:34 06:00 WBC (4.5-11.0) 10^3/ul RBC (3.5-6.1) 10^6/uL Hgb (12.0-16.0) g/dL Hct (36.0-48.0) % MCV (80.0-105.0) fl MCH (25.0-35.0) pg MCHC (31.0-37.0) g/dl RDW (11.5-14.5) % Plt Count (120.0-450.0) 10^3/uL Corrected WBC (Man) (4.5-11.0) K/mm3 Neutrophils % (Manual) (50.0-70.0) % Band Neutrophils % (0-2) % Lymphocytes % (Manual) (22.0-35.0) % Monocytes % (Manual) (1.0-6.0) % Eosinophils % (Manual) (0.0-3.0) % Metamyelocytes % % Myelocytes % % Promyelocytes % % Nucleated RBC % % Platelet Evaluation (NORMAL) Poikilocytosis (manual Anisocytosis (manual) Retic Count (0.5-1.5) % Haptoglobin (30.0-200.0) mg/dL PT (9.4-12.5) SECONDS INR APTT > 400.0 H* (25.1-36.5) Seconds Fibrin Degrad Products (< 10 ug/mL) pCO2 26 L (35-45) mm/Hg pO2 120.0 H (80-100) mm/Hg HCO3 4.8 L* (21-28) mmol/L ABG pH 6.87 L* (7.35-7.45) ABG Total CO2 5.6 L (22-28) mmol.L ABG O2 Saturation 98.7 H (95-98) % ABG O2 Content 8.9 L (15-23) ML/dl ABG Base Excess -26.3 L (-2.0-3.0) mmol/L ABG Hemoglobin 6.4 L (11.7-17.4) g/dL ABG Carboxyhemoglobin 1.0 (0.5-1.5) % POC ABG HHb (Measured) 1.3 (0-5) % ABG Methemoglobin 1.6 (0.0-3.0) % ABG O2 Capacity 9.0 L (16-24) mL/dl VBG pH (7.32-7.43) VBG pCO2 (40-60) VBG HCO3 (21-28) mmol/l VBG Total CO2 (22-28) mmol.L VBG O2 Sat (Calc) (40-65) % VBG Base Excess (0.0-2.0) mmol/L VBG Potassium (3.6-5.2) mmol/L Hgb O2 Saturation 96.2 (95.0-98.0) % Sodium (132-148) mmol/L Chloride (98-107) mmol/L Glucose (65-105) mg/dl Lactate (0.7-2.1) mmol/L FiO2 40.0 % Potassium (3.6-5.0) mmol/L Carbon Dioxide (21-33) mmol/L Anion Gap (10-20) BUN (7-21) mg/dL Creatinine (0.7-1.2) mg/dl Est GFR ( Amer) Est GFR (Non-Af Amer) POC Glucose (mg/dL) 76 (65-110) mg/dL Random Glucose (70-110) mg/dL Calcium (8.4-10.5) mg/dL Phosphorus (2.5-4.5) mg/dL Magnesium (1.7-2.2) mg/dL Total Bilirubin (0.2-1.3) mg/dL Direct Bilirubin (0.0-0.4) mg/dL GGT (8-78) U/L AST (14-36) U/L ALT (7-56) U/L Alkaline Phosphatase (38-126) U/L Lactate Dehydrogenase (333-699) U/L Total Creatine Kinase (35-230) U/L CK-MB (CK-2) (0.0-3.6) ng/mL CK-MB (CK-2) % Total Protein (5.8-8.3) g/dL Albumin (3.0-4.8) g/dL Globulin gm/dL Albumin/Globulin Ratio (1.1-1.8) Venous Blood Potassium (3.6-5.2) mmol/L Heparin-induced Plt Ab (Negative) Blood Type Antibody Screen Crossmatch BBK History Checked 06/20/18 06/20/18 06/20/18 Range/Units 06:00 06:00 04:25 WBC 50.3 H* (4.5-11.0) 10^3/ul RBC 2.42 L (3.5-6.1) 10^6/uL Hgb 6.2 L* D (12.0-16.0) g/dL Hct 21.9 L (36.0-48.0) % MCV 90.5 D (80.0-105.0) fl MCH 25.6 (25.0-35.0) pg MCHC 28.3 L (31.0-37.0) g/dl RDW 23.6 H (11.5-14.5) % Plt Count 24 L* (120.0-450.0) 10^3/uL Corrected WBC (Man) 19.6 H (4.5-11.0) K/mm3 Neutrophils % (Manual) 75 H (50.0-70.0) % Band Neutrophils % 4 H (0-2) % Lymphocytes % (Manual) 10 L (22.0-35.0) % Monocytes % (Manual) 3 (1.0-6.0) % Eosinophils % (Manual) 1 (0.0-3.0) % Metamyelocytes % 2 % Myelocytes % 3 % Promyelocytes % 2 % Nucleated RBC % 157 % Platelet Evaluation Low (NORMAL) Poikilocytosis (manual Slight Anisocytosis (manual) Slight Retic Count (0.5-1.5) % Haptoglobin (30.0-200.0) mg/dL PT (9.4-12.5) SECONDS INR APTT (25.1-36.5) Seconds Fibrin Degrad Products (< 10 ug/mL) pCO2 (35-45) mm/Hg pO2 (80-100) mm/Hg HCO3 (21-28) mmol/L ABG pH (7.35-7.45) ABG Total CO2 (22-28) mmol.L ABG O2 Saturation (95-98) % ABG O2 Content (15-23) ML/dl ABG Base Excess (-2.0-3.0) mmol/L ABG Hemoglobin (11.7-17.4) g/dL ABG Carboxyhemoglobin (0.5-1.5) % POC ABG HHb (Measured) (0-5) % ABG Methemoglobin (0.0-3.0) % ABG O2 Capacity (16-24) mL/dl VBG pH (7.32-7.43) VBG pCO2 (40-60) VBG HCO3 (21-28) mmol/l VBG Total CO2 (22-28) mmol.L VBG O2 Sat (Calc) (40-65) % VBG Base Excess (0.0-2.0) mmol/L VBG Potassium (3.6-5.2) mmol/L Hgb O2 Saturation (95.0-98.0) % Sodium 138 (132-148) mmol/L Chloride 103 (98-107) mmol/L Glucose (65-105) mg/dl Lactate (0.7-2.1) mmol/L FiO2 % Potassium 6.6 H* (3.6-5.0) mmol/L Carbon Dioxide 6 L D (21-33) mmol/L Anion Gap 36 H (10-20) BUN 48 H (7-21) mg/dL Creatinine 3.4 H (0.7-1.2) mg/dl Est GFR ( Amer) 17 Est GFR (Non-Af Amer) 14 POC Glucose (mg/dL) 145 H (65-110) mg/dL Random Glucose 156 H (70-110) mg/dL Calcium 7.4 L (8.4-10.5) mg/dL Phosphorus 14.4 H (2.5-4.5) mg/dL Magnesium 2.7 H (1.7-2.2) mg/dL Total Bilirubin 8.8 H (0.2-1.3) mg/dL Direct Bilirubin (0.0-0.4) mg/dL GGT (8-78) U/L AST 40658 H (14-36) U/L ALT 929 H (7-56) U/L Alkaline Phosphatase 390 H D (38-126) U/L Lactate Dehydrogenase (333-699) U/L Total Creatine Kinase (35-230) U/L CK-MB (CK-2) (0.0-3.6) ng/mL CK-MB (CK-2) % Total Protein 3.6 L (5.8-8.3) g/dL Albumin 1.7 L (3.0-4.8) g/dL Globulin 1.9 gm/dL Albumin/Globulin Ratio 0.9 L (1.1-1.8) Venous Blood Potassium (3.6-5.2) mmol/L Heparin-induced Plt Ab (Negative) Blood Type Antibody Screen Crossmatch BBK History Checked 06/20/18 06/20/18 06/20/18 Range/Units 03:27 02:00 01:49 WBC (4.5-11.0) 10^3/ul RBC (3.5-6.1) 10^6/uL Hgb (12.0-16.0) g/dL Hct (36.0-48.0) % MCV (80.0-105.0) fl MCH (25.0-35.0) pg MCHC (31.0-37.0) g/dl RDW (11.5-14.5) % Plt Count (120.0-450.0) 10^3/uL Corrected WBC (Man) (4.5-11.0) K/mm3 Neutrophils % (Manual) (50.0-70.0) % Band Neutrophils % (0-2) % Lymphocytes % (Manual) (22.0-35.0) % Monocytes % (Manual) (1.0-6.0) % Eosinophils % (Manual) (0.0-3.0) % Metamyelocytes % % Myelocytes % % Promyelocytes % % Nucleated RBC % % Platelet Evaluation (NORMAL) Poikilocytosis (manual Anisocytosis (manual) Retic Count (0.5-1.5) % Haptoglobin (30.0-200.0) mg/dL PT (9.4-12.5) SECONDS INR APTT (25.1-36.5) Seconds Fibrin Degrad Products (< 10 ug/mL) pCO2 (35-45) mm/Hg pO2 (80-100) mm/Hg HCO3 (21-28) mmol/L ABG pH (7.35-7.45) ABG Total CO2 (22-28) mmol.L ABG O2 Saturation (95-98) % ABG O2 Content (15-23) ML/dl ABG Base Excess (-2.0-3.0) mmol/L ABG Hemoglobin (11.7-17.4) g/dL ABG Carboxyhemoglobin (0.5-1.5) % POC ABG HHb (Measured) (0-5) % ABG Methemoglobin (0.0-3.0) % ABG O2 Capacity (16-24) mL/dl VBG pH (7.32-7.43) VBG pCO2 (40-60) VBG HCO3 (21-28) mmol/l VBG Total CO2 (22-28) mmol.L VBG O2 Sat (Calc) (40-65) % VBG Base Excess (0.0-2.0) mmol/L VBG Potassium (3.6-5.2) mmol/L Hgb O2 Saturation (95.0-98.0) % Sodium 138 (132-148) mmol/L Chloride 102 (98-107) mmol/L Glucose (65-105) mg/dl Lactate (0.7-2.1) mmol/L FiO2 % Potassium 6.2 H* (3.6-5.0) mmol/L Carbon Dioxide 8 L (21-33) mmol/L Anion Gap 33 H (10-20) BUN 50 H (7-21) mg/dL Creatinine 3.2 H (0.7-1.2) mg/dl Est GFR ( Amer) 18 Est GFR (Non-Af Amer) 15 POC Glucose (mg/dL) 82 125 H (65-110) mg/dL Random Glucose 182 H (70-110) mg/dL Calcium 7.5 L (8.4-10.5) mg/dL Phosphorus (2.5-4.5) mg/dL Magnesium (1.7-2.2) mg/dL Total Bilirubin (0.2-1.3) mg/dL Direct Bilirubin (0.0-0.4) mg/dL GGT (8-78) U/L AST (14-36) U/L ALT (7-56) U/L Alkaline Phosphatase (38-126) U/L Lactate Dehydrogenase (333-699) U/L Total Creatine Kinase (35-230) U/L CK-MB (CK-2) (0.0-3.6) ng/mL CK-MB (CK-2) % Total Protein (5.8-8.3) g/dL Albumin (3.0-4.8) g/dL Globulin gm/dL Albumin/Globulin Ratio (1.1-1.8) Venous Blood Potassium (3.6-5.2) mmol/L Heparin-induced Plt Ab (Negative) Blood Type Antibody Screen Crossmatch BBK History Checked 06/20/18 06/19/18 06/19/18 Range/Units 00:58 23:57 23:00 WBC (4.5-11.0) 10^3/ul RBC (3.5-6.1) 10^6/uL Hgb (12.0-16.0) g/dL Hct (36.0-48.0) % MCV (80.0-105.0) fl MCH (25.0-35.0) pg MCHC (31.0-37.0) g/dl RDW (11.5-14.5) % Plt Count (120.0-450.0) 10^3/uL Corrected WBC (Man) (4.5-11.0) K/mm3 Neutrophils % (Manual) (50.0-70.0) % Band Neutrophils % (0-2) % Lymphocytes % (Manual) (22.0-35.0) % Monocytes % (Manual) (1.0-6.0) % Eosinophils % (Manual) (0.0-3.0) % Metamyelocytes % % Myelocytes % % Promyelocytes % % Nucleated RBC % % Platelet Evaluation (NORMAL) Poikilocytosis (manual Anisocytosis (manual) Retic Count (0.5-1.5) % Haptoglobin (30.0-200.0) mg/dL PT (9.4-12.5) SECONDS INR APTT (25.1-36.5) Seconds Fibrin Degrad Products (< 10 ug/mL) pCO2 (35-45) mm/Hg pO2 (80-100) mm/Hg HCO3 (21-28) mmol/L ABG pH (7.35-7.45) ABG Total CO2 (22-28) mmol.L ABG O2 Saturation (95-98) % ABG O2 Content (15-23) ML/dl ABG Base Excess (-2.0-3.0) mmol/L ABG Hemoglobin (11.7-17.4) g/dL ABG Carboxyhemoglobin (0.5-1.5) % POC ABG HHb (Measured) (0-5) % ABG Methemoglobin (0.0-3.0) % ABG O2 Capacity (16-24) mL/dl VBG pH (7.32-7.43) VBG pCO2 (40-60) VBG HCO3 (21-28) mmol/l VBG Total CO2 (22-28) mmol.L VBG O2 Sat (Calc) (40-65) % VBG Base Excess (0.0-2.0) mmol/L VBG Potassium (3.6-5.2) mmol/L Hgb O2 Saturation (95.0-98.0) % Sodium (132-148) mmol/L Chloride (98-107) mmol/L Glucose (65-105) mg/dl Lactate (0.7-2.1) mmol/L FiO2 % Potassium (3.6-5.0) mmol/L Carbon Dioxide (21-33) mmol/L Anion Gap (10-20) BUN (7-21) mg/dL Creatinine (0.7-1.2) mg/dl Est GFR ( Amer) Est GFR (Non-Af Amer) POC Glucose (mg/dL) 34 L* 38 L* (65-110) mg/dL Random Glucose (70-110) mg/dL Calcium (8.4-10.5) mg/dL Phosphorus 11.8 H (2.5-4.5) mg/dL Magnesium 2.6 H (1.7-2.2) mg/dL Total Bilirubin (0.2-1.3) mg/dL Direct Bilirubin (0.0-0.4) mg/dL GGT (8-78) U/L AST (14-36) U/L ALT (7-56) U/L Alkaline Phosphatase (38-126) U/L Lactate Dehydrogenase (333-699) U/L Total Creatine Kinase (35-230) U/L CK-MB (CK-2) (0.0-3.6) ng/mL CK-MB (CK-2) % Total Protein (5.8-8.3) g/dL Albumin (3.0-4.8) g/dL Globulin gm/dL Albumin/Globulin Ratio (1.1-1.8) Venous Blood Potassium (3.6-5.2) mmol/L Heparin-induced Plt Ab (Negative) Blood Type Antibody Screen Crossmatch BBK History Checked 06/19/18 06/19/18 06/19/18 Range/Units 21:57 21:57 21:53 WBC (4.5-11.0) 10^3/ul RBC (3.5-6.1) 10^6/uL Hgb (12.0-16.0) g/dL Hct (36.0-48.0) % MCV (80.0-105.0) fl MCH (25.0-35.0) pg MCHC (31.0-37.0) g/dl RDW (11.5-14.5) % Plt Count (120.0-450.0) 10^3/uL Corrected WBC (Man) (4.5-11.0) K/mm3 Neutrophils % (Manual) (50.0-70.0) % Band Neutrophils % (0-2) % Lymphocytes % (Manual) (22.0-35.0) % Monocytes % (Manual) (1.0-6.0) % Eosinophils % (Manual) (0.0-3.0) % Metamyelocytes % % Myelocytes % % Promyelocytes % % Nucleated RBC % % Platelet Evaluation (NORMAL) Poikilocytosis (manual Anisocytosis (manual) Retic Count (0.5-1.5) % Haptoglobin (30.0-200.0) mg/dL PT (9.4-12.5) SECONDS INR APTT > 400.0 H* (25.1-36.5) Seconds Fibrin Degrad Products (< 10 ug/mL) pCO2 19 L* (35-45) mm/Hg pO2 133.0 H (80-100) mm/Hg HCO3 5.5 L* (21-28) mmol/L ABG pH 7.07 L* (7.35-7.45) ABG Total CO2 6.1 L (22-28) mmol.L ABG O2 Saturation 99.0 H (95-98) % ABG O2 Content 10.9 L (15-23) ML/dl ABG Base Excess -22.7 L (-2.0-3.0) mmol/L ABG Hemoglobin 7.8 L (11.7-17.4) g/dL ABG Carboxyhemoglobin 0.8 (0.5-1.5) % POC ABG HHb (Measured) 1.0 (0-5) % ABG Methemoglobin 1.3 (0.0-3.0) % ABG O2 Capacity 11.0 L (16-24) mL/dl VBG pH (7.32-7.43) VBG pCO2 (40-60) VBG HCO3 (21-28) mmol/l VBG Total CO2 (22-28) mmol.L VBG O2 Sat (Calc) (40-65) % VBG Base Excess (0.0-2.0) mmol/L VBG Potassium (3.6-5.2) mmol/L Hgb O2 Saturation 96.9 (95.0-98.0) % Sodium 137 (132-148) mmol/L Chloride 102 (98-107) mmol/L Glucose (65-105) mg/dl Lactate (0.7-2.1) mmol/L FiO2 40.0 % Potassium 5.9 H* (3.6-5.0) mmol/L Carbon Dioxide 7 L D (21-33) mmol/L Anion Gap 34 H (10-20) BUN 49 H (7-21) mg/dL Creatinine 3.1 H (0.7-1.2) mg/dl Est GFR ( Amer) 18 Est GFR (Non-Af Amer) 15 POC Glucose (mg/dL) (65-110) mg/dL Random Glucose 122 H (70-110) mg/dL Calcium 7.8 L (8.4-10.5) mg/dL Phosphorus (2.5-4.5) mg/dL Magnesium (1.7-2.2) mg/dL Total Bilirubin (0.2-1.3) mg/dL Direct Bilirubin (0.0-0.4) mg/dL GGT (8-78) U/L AST (14-36) U/L ALT (7-56) U/L Alkaline Phosphatase (38-126) U/L Lactate Dehydrogenase (333-699) U/L Total Creatine Kinase (35-230) U/L CK-MB (CK-2) (0.0-3.6) ng/mL CK-MB (CK-2) % Total Protein (5.8-8.3) g/dL Albumin (3.0-4.8) g/dL Globulin gm/dL Albumin/Globulin Ratio (1.1-1.8) Venous Blood Potassium (3.6-5.2) mmol/L Heparin-induced Plt Ab (Negative) Blood Type Antibody Screen Crossmatch BBK History Checked 06/19/18 06/19/18 06/19/18 Range/Units 20:42 20:13 20:10 WBC (4.5-11.0) 10^3/ul RBC (3.5-6.1) 10^6/uL Hgb (12.0-16.0) g/dL Hct (36.0-48.0) % MCV (80.0-105.0) fl MCH (25.0-35.0) pg MCHC (31.0-37.0) g/dl RDW (11.5-14.5) % Plt Count (120.0-450.0) 10^3/uL Corrected WBC (Man) (4.5-11.0) K/mm3 Neutrophils % (Manual) (50.0-70.0) % Band Neutrophils % (0-2) % Lymphocytes % (Manual) (22.0-35.0) % Monocytes % (Manual) (1.0-6.0) % Eosinophils % (Manual) (0.0-3.0) % Metamyelocytes % % Myelocytes % % Promyelocytes % % Nucleated RBC % % Platelet Evaluation (NORMAL) Poikilocytosis (manual Anisocytosis (manual) Retic Count (0.5-1.5) % Haptoglobin (30.0-200.0) mg/dL PT (9.4-12.5) SECONDS INR APTT (25.1-36.5) Seconds Fibrin Degrad Products (< 10 ug/mL) pCO2 (35-45) mm/Hg pO2 (80-100) mm/Hg HCO3 (21-28) mmol/L ABG pH (7.35-7.45) ABG Total CO2 (22-28) mmol.L ABG O2 Saturation (95-98) % ABG O2 Content (15-23) ML/dl ABG Base Excess (-2.0-3.0) mmol/L ABG Hemoglobin (11.7-17.4) g/dL ABG Carboxyhemoglobin (0.5-1.5) % POC ABG HHb (Measured) (0-5) % ABG Methemoglobin (0.0-3.0) % ABG O2 Capacity (16-24) mL/dl VBG pH (7.32-7.43) VBG pCO2 (40-60) VBG HCO3 (21-28) mmol/l VBG Total CO2 (22-28) mmol.L VBG O2 Sat (Calc) (40-65) % VBG Base Excess (0.0-2.0) mmol/L VBG Potassium (3.6-5.2) mmol/L Hgb O2 Saturation (95.0-98.0) % Sodium (132-148) mmol/L Chloride (98-107) mmol/L Glucose (65-105) mg/dl Lactate (0.7-2.1) mmol/L FiO2 % Potassium (3.6-5.0) mmol/L Carbon Dioxide (21-33) mmol/L Anion Gap (10-20) BUN (7-21) mg/dL Creatinine (0.7-1.2) mg/dl Est GFR ( Amer) Est GFR (Non-Af Amer) POC Glucose (mg/dL) 111 H 25 L* 32 L* (65-110) mg/dL Random Glucose (70-110) mg/dL Calcium (8.4-10.5) mg/dL Phosphorus (2.5-4.5) mg/dL Magnesium (1.7-2.2) mg/dL Total Bilirubin (0.2-1.3) mg/dL Direct Bilirubin (0.0-0.4) mg/dL GGT (8-78) U/L AST (14-36) U/L ALT (7-56) U/L Alkaline Phosphatase (38-126) U/L Lactate Dehydrogenase (333-699) U/L Total Creatine Kinase (35-230) U/L CK-MB (CK-2) (0.0-3.6) ng/mL CK-MB (CK-2) % Total Protein (5.8-8.3) g/dL Albumin (3.0-4.8) g/dL Globulin gm/dL Albumin/Globulin Ratio (1.1-1.8) Venous Blood Potassium (3.6-5.2) mmol/L Heparin-induced Plt Ab (Negative) Blood Type Antibody Screen Crossmatch BBK History Checked 06/19/18 06/19/18 06/19/18 Range/Units 19:25 19:02 18:47 WBC (4.5-11.0) 10^3/ul RBC (3.5-6.1) 10^6/uL Hgb (12.0-16.0) g/dL Hct (36.0-48.0) % MCV (80.0-105.0) fl MCH (25.0-35.0) pg MCHC (31.0-37.0) g/dl RDW (11.5-14.5) % Plt Count (120.0-450.0) 10^3/uL Corrected WBC (Man) (4.5-11.0) K/mm3 Neutrophils % (Manual) (50.0-70.0) % Band Neutrophils % (0-2) % Lymphocytes % (Manual) (22.0-35.0) % Monocytes % (Manual) (1.0-6.0) % Eosinophils % (Manual) (0.0-3.0) % Metamyelocytes % % Myelocytes % % Promyelocytes % % Nucleated RBC % % Platelet Evaluation (NORMAL) Poikilocytosis (manual Anisocytosis (manual) Retic Count (0.5-1.5) % Haptoglobin (30.0-200.0) mg/dL PT (9.4-12.5) SECONDS INR APTT (25.1-36.5) Seconds Fibrin Degrad Products (< 10 ug/mL) pCO2 (35-45) mm/Hg pO2 (80-100) mm/Hg HCO3 (21-28) mmol/L ABG pH (7.35-7.45) ABG Total CO2 (22-28) mmol.L ABG O2 Saturation (95-98) % ABG O2 Content (15-23) ML/dl ABG Base Excess (-2.0-3.0) mmol/L ABG Hemoglobin (11.7-17.4) g/dL ABG Carboxyhemoglobin (0.5-1.5) % POC ABG HHb (Measured) (0-5) % ABG Methemoglobin (0.0-3.0) % ABG O2 Capacity (16-24) mL/dl VBG pH (7.32-7.43) VBG pCO2 (40-60) VBG HCO3 (21-28) mmol/l VBG Total CO2 (22-28) mmol.L VBG O2 Sat (Calc) (40-65) % VBG Base Excess (0.0-2.0) mmol/L VBG Potassium (3.6-5.2) mmol/L Hgb O2 Saturation (95.0-98.0) % Sodium 138 (132-148) mmol/L Chloride 102 (98-107) mmol/L Glucose (65-105) mg/dl Lactate (0.7-2.1) mmol/L FiO2 % Potassium 5.9 H* D (3.6-5.0) mmol/L Carbon Dioxide 11 L (21-33) mmol/L Anion Gap 31 H (10-20) BUN 49 H (7-21) mg/dL Creatinine 2.9 H (0.7-1.2) mg/dl Est GFR ( Amer) 20 Est GFR (Non-Af Amer) 16 POC Glucose (mg/dL) 62 L < 20 L* (65-110) mg/dL Random Glucose 22 L* D (70-110) mg/dL Calcium 7.9 L (8.4-10.5) mg/dL Phosphorus (2.5-4.5) mg/dL Magnesium (1.7-2.2) mg/dL Total Bilirubin (0.2-1.3) mg/dL Direct Bilirubin (0.0-0.4) mg/dL GGT (8-78) U/L AST (14-36) U/L ALT (7-56) U/L Alkaline Phosphatase (38-126) U/L Lactate Dehydrogenase (333-699) U/L Total Creatine Kinase (35-230) U/L CK-MB (CK-2) (0.0-3.6) ng/mL CK-MB (CK-2) % Total Protein (5.8-8.3) g/dL Albumin (3.0-4.8) g/dL Globulin gm/dL Albumin/Globulin Ratio (1.1-1.8) Venous Blood Potassium (3.6-5.2) mmol/L Heparin-induced Plt Ab (Negative) Blood Type Antibody Screen Crossmatch BBK History Checked 06/19/18 06/19/18 06/19/18 Range/Units 18:36 17:18 16:30 WBC (4.5-11.0) 10^3/ul RBC (3.5-6.1) 10^6/uL Hgb (12.0-16.0) g/dL Hct (36.0-48.0) % MCV (80.0-105.0) fl MCH (25.0-35.0) pg MCHC (31.0-37.0) g/dl RDW (11.5-14.5) % Plt Count (120.0-450.0) 10^3/uL Corrected WBC (Man) (4.5-11.0) K/mm3 Neutrophils % (Manual) (50.0-70.0) % Band Neutrophils % (0-2) % Lymphocytes % (Manual) (22.0-35.0) % Monocytes % (Manual) (1.0-6.0) % Eosinophils % (Manual) (0.0-3.0) % Metamyelocytes % % Myelocytes % % Promyelocytes % % Nucleated RBC % % Platelet Evaluation (NORMAL) Poikilocytosis (manual Anisocytosis (manual) Retic Count (0.5-1.5) % Haptoglobin (30.0-200.0) mg/dL PT (9.4-12.5) SECONDS INR APTT (25.1-36.5) Seconds Fibrin Degrad Products (< 10 ug/mL) pCO2 13 L* (35-45) mm/Hg pO2 89 H 154.0 H (80-100) mm/Hg HCO3 6.0 L* (21-28) mmol/L ABG pH 7.27 L (7.35-7.45) ABG Total CO2 6.4 L (22-28) mmol.L ABG O2 Saturation 100.0 H (95-98) % ABG O2 Content 11.7 L (15-23) ML/dl ABG Base Excess -18.9 L (-2.0-3.0) mmol/L ABG Hemoglobin 8.3 L (11.7-17.4) g/dL ABG Carboxyhemoglobin 1.3 (0.5-1.5) % POC ABG HHb (Measured) 0 (0-5) % ABG Methemoglobin 1.2 (0.0-3.0) % ABG O2 Capacity 11.7 L (16-24) mL/dl VBG pH 7.12 L* (7.32-7.43) VBG pCO2 30.0 L (40-60) VBG HCO3 9.8 L (21-28) mmol/l VBG Total CO2 10.7 L (22-28) mmol.L VBG O2 Sat (Calc) 98.8 H (40-65) % VBG Base Excess -18.3 L (0.0-2.0) mmol/L VBG Potassium 6.1 H (3.6-5.2) mmol/L Hgb O2 Saturation 97.4 (95.0-98.0) % Sodium 136.0 (132-148) mmol/L Chloride 101.0 (98-107) mmol/L Glucose 18 L* D (65-105) mg/dl Lactate 17.4 H* (0.7-2.1) mmol/L FiO2 21.0 40.0 % Potassium (3.6-5.0) mmol/L Carbon Dioxide (21-33) mmol/L Anion Gap (10-20) BUN (7-21) mg/dL Creatinine (0.7-1.2) mg/dl Est GFR ( Amer) Est GFR (Non-Af Amer) POC Glucose (mg/dL) (65-110) mg/dL Random Glucose (70-110) mg/dL Calcium (8.4-10.5) mg/dL Phosphorus (2.5-4.5) mg/dL Magnesium (1.7-2.2) mg/dL Total Bilirubin (0.2-1.3) mg/dL Direct Bilirubin (0.0-0.4) mg/dL GGT (8-78) U/L AST (14-36) U/L ALT (7-56) U/L Alkaline Phosphatase (38-126) U/L Lactate Dehydrogenase 77244 H (333-699) U/L Total Creatine Kinase (35-230) U/L CK-MB (CK-2) (0.0-3.6) ng/mL CK-MB (CK-2) % Total Protein (5.8-8.3) g/dL Albumin (3.0-4.8) g/dL Globulin gm/dL Albumin/Globulin Ratio (1.1-1.8) Venous Blood Potassium 6.1 H (3.6-5.2) mmol/L Heparin-induced Plt Ab (Negative) Blood Type Antibody Screen Crossmatch BBK History Checked 06/19/18 06/19/18 06/19/18 Range/Units 16:30 16:30 16:30 WBC (4.5-11.0) 10^3/ul RBC (3.5-6.1) 10^6/uL Hgb (12.0-16.0) g/dL Hct (36.0-48.0) % MCV (80.0-105.0) fl MCH (25.0-35.0) pg MCHC (31.0-37.0) g/dl RDW (11.5-14.5) % Plt Count (120.0-450.0) 10^3/uL Corrected WBC (Man) (4.5-11.0) K/mm3 Neutrophils % (Manual) (50.0-70.0) % Band Neutrophils % (0-2) % Lymphocytes % (Manual) (22.0-35.0) % Monocytes % (Manual) (1.0-6.0) % Eosinophils % (Manual) (0.0-3.0) % Metamyelocytes % % Myelocytes % % Promyelocytes % % Nucleated RBC % % Platelet Evaluation (NORMAL) Poikilocytosis (manual Anisocytosis (manual) Retic Count 3.80 H (0.5-1.5) % Haptoglobin 119.2 (30.0-200.0) mg/dL PT (9.4-12.5) SECONDS INR APTT (25.1-36.5) Seconds Fibrin Degrad Products >40 ug/ml (< 10 ug/mL) pCO2 (35-45) mm/Hg pO2 (80-100) mm/Hg HCO3 (21-28) mmol/L ABG pH (7.35-7.45) ABG Total CO2 (22-28) mmol.L ABG O2 Saturation (95-98) % ABG O2 Content (15-23) ML/dl ABG Base Excess (-2.0-3.0) mmol/L ABG Hemoglobin (11.7-17.4) g/dL ABG Carboxyhemoglobin (0.5-1.5) % POC ABG HHb (Measured) (0-5) % ABG Methemoglobin (0.0-3.0) % ABG O2 Capacity (16-24) mL/dl VBG pH (7.32-7.43) VBG pCO2 (40-60) VBG HCO3 (21-28) mmol/l VBG Total CO2 (22-28) mmol.L VBG O2 Sat (Calc) (40-65) % VBG Base Excess (0.0-2.0) mmol/L VBG Potassium (3.6-5.2) mmol/L Hgb O2 Saturation (95.0-98.0) % Sodium (132-148) mmol/L Chloride (98-107) mmol/L Glucose (65-105) mg/dl Lactate (0.7-2.1) mmol/L FiO2 % Potassium (3.6-5.0) mmol/L Carbon Dioxide (21-33) mmol/L Anion Gap (10-20) BUN (7-21) mg/dL Creatinine (0.7-1.2) mg/dl Est GFR ( Amer) Est GFR (Non-Af Amer) POC Glucose (mg/dL) (65-110) mg/dL Random Glucose (70-110) mg/dL Calcium (8.4-10.5) mg/dL Phosphorus (2.5-4.5) mg/dL Magnesium (1.7-2.2) mg/dL Total Bilirubin (0.2-1.3) mg/dL Direct Bilirubin (0.0-0.4) mg/dL GGT (8-78) U/L AST (14-36) U/L ALT (7-56) U/L Alkaline Phosphatase (38-126) U/L Lactate Dehydrogenase (333-699) U/L Total Creatine Kinase (35-230) U/L CK-MB (CK-2) (0.0-3.6) ng/mL CK-MB (CK-2) % Total Protein (5.8-8.3) g/dL Albumin (3.0-4.8) g/dL Globulin gm/dL Albumin/Globulin Ratio (1.1-1.8) Venous Blood Potassium (3.6-5.2) mmol/L Heparin-induced Plt Ab (Negative) Blood Type Antibody Screen Crossmatch BBK History Checked 06/19/18 06/19/18 06/17/18 Range/Units 13:00 11:50 16:12 WBC (4.5-11.0) 10^3/ul RBC (3.5-6.1) 10^6/uL Hgb (12.0-16.0) g/dL Hct (36.0-48.0) % MCV (80.0-105.0) fl MCH (25.0-35.0) pg MCHC (31.0-37.0) g/dl RDW (11.5-14.5) % Plt Count (120.0-450.0) 10^3/uL Corrected WBC (Man) (4.5-11.0) K/mm3 Neutrophils % (Manual) (50.0-70.0) % Band Neutrophils % (0-2) % Lymphocytes % (Manual) (22.0-35.0) % Monocytes % (Manual) (1.0-6.0) % Eosinophils % (Manual) (0.0-3.0) % Metamyelocytes % % Myelocytes % % Promyelocytes % % Nucleated RBC % % Platelet Evaluation (NORMAL) Poikilocytosis (manual Anisocytosis (manual) Retic Count (0.5-1.5) % Haptoglobin (30.0-200.0) mg/dL PT 98.9 H (9.4-12.5) SECONDS INR 8.24 H* APTT 71.8 H (25.1-36.5) Seconds Fibrin Degrad Products (< 10 ug/mL) pCO2 (35-45) mm/Hg pO2 (80-100) mm/Hg HCO3 (21-28) mmol/L ABG pH (7.35-7.45) ABG Total CO2 (22-28) mmol.L ABG O2 Saturation (95-98) % ABG O2 Content (15-23) ML/dl ABG Base Excess (-2.0-3.0) mmol/L ABG Hemoglobin (11.7-17.4) g/dL ABG Carboxyhemoglobin (0.5-1.5) % POC ABG HHb (Measured) (0-5) % ABG Methemoglobin (0.0-3.0) % ABG O2 Capacity (16-24) mL/dl VBG pH (7.32-7.43) VBG pCO2 (40-60) VBG HCO3 (21-28) mmol/l VBG Total CO2 (22-28) mmol.L VBG O2 Sat (Calc) (40-65) % VBG Base Excess (0.0-2.0) mmol/L VBG Potassium (3.6-5.2) mmol/L Hgb O2 Saturation (95.0-98.0) % Sodium (132-148) mmol/L Chloride (98-107) mmol/L Glucose (65-105) mg/dl Lactate (0.7-2.1) mmol/L FiO2 % Potassium (3.6-5.0) mmol/L Carbon Dioxide (21-33) mmol/L Anion Gap (10-20) BUN (7-21) mg/dL Creatinine (0.7-1.2) mg/dl Est GFR ( Amer) Est GFR (Non-Af Amer) POC Glucose (mg/dL) (65-110) mg/dL Random Glucose (70-110) mg/dL Calcium (8.4-10.5) mg/dL Phosphorus (2.5-4.5) mg/dL Magnesium (1.7-2.2) mg/dL Total Bilirubin (0.2-1.3) mg/dL Direct Bilirubin 7.3 H (0.0-0.4) mg/dL GGT 1046 H (8-78) U/L AST (14-36) U/L ALT (7-56) U/L Alkaline Phosphatase (38-126) U/L Lactate Dehydrogenase (333-699) U/L Total Creatine Kinase 299 H (35-230) U/L CK-MB (CK-2) 3.5 (0.0-3.6) ng/mL CK-MB (CK-2) % Cancelled Total Protein (5.8-8.3) g/dL Albumin (3.0-4.8) g/dL Globulin gm/dL Albumin/Globulin Ratio (1.1-1.8) Venous Blood Potassium (3.6-5.2) mmol/L Heparin-induced Plt Ab Negative (Negative) Blood Type Antibody Screen Crossmatch BBK History Checked 06/17/18 Range/Units 08:25 WBC (4.5-11.0) 10^3/ul RBC (3.5-6.1) 10^6/uL Hgb (12.0-16.0) g/dL Hct (36.0-48.0) % MCV (80.0-105.0) fl MCH (25.0-35.0) pg MCHC (31.0-37.0) g/dl RDW (11.5-14.5) % Plt Count (120.0-450.0) 10^3/uL Corrected WBC (Man) (4.5-11.0) K/mm3 Neutrophils % (Manual) (50.0-70.0) % Band Neutrophils % (0-2) % Lymphocytes % (Manual) (22.0-35.0) % Monocytes % (Manual) (1.0-6.0) % Eosinophils % (Manual) (0.0-3.0) % Metamyelocytes % % Myelocytes % % Promyelocytes % % Nucleated RBC % % Platelet Evaluation (NORMAL) Poikilocytosis (manual Anisocytosis (manual) Retic Count (0.5-1.5) % Haptoglobin (30.0-200.0) mg/dL PT (9.4-12.5) SECONDS INR APTT (25.1-36.5) Seconds Fibrin Degrad Products (< 10 ug/mL) pCO2 (35-45) mm/Hg pO2 (80-100) mm/Hg HCO3 (21-28) mmol/L ABG pH (7.35-7.45) ABG Total CO2 (22-28) mmol.L ABG O2 Saturation (95-98) % ABG O2 Content (15-23) ML/dl ABG Base Excess (-2.0-3.0) mmol/L ABG Hemoglobin (11.7-17.4) g/dL ABG Carboxyhemoglobin (0.5-1.5) % POC ABG HHb (Measured) (0-5) % ABG Methemoglobin (0.0-3.0) % ABG O2 Capacity (16-24) mL/dl VBG pH (7.32-7.43) VBG pCO2 (40-60) VBG HCO3 (21-28) mmol/l VBG Total CO2 (22-28) mmol.L VBG O2 Sat (Calc) (40-65) % VBG Base Excess (0.0-2.0) mmol/L VBG Potassium (3.6-5.2) mmol/L Hgb O2 Saturation (95.0-98.0) % Sodium (132-148) mmol/L Chloride (98-107) mmol/L Glucose (65-105) mg/dl Lactate (0.7-2.1) mmol/L FiO2 % Potassium (3.6-5.0) mmol/L Carbon Dioxide (21-33) mmol/L Anion Gap (10-20) BUN (7-21) mg/dL Creatinine (0.7-1.2) mg/dl Est GFR ( Amer) Est GFR (Non-Af Amer) POC Glucose (mg/dL) (65-110) mg/dL Random Glucose (70-110) mg/dL Calcium (8.4-10.5) mg/dL Phosphorus (2.5-4.5) mg/dL Magnesium (1.7-2.2) mg/dL Total Bilirubin (0.2-1.3) mg/dL Direct Bilirubin (0.0-0.4) mg/dL GGT (8-78) U/L AST (14-36) U/L ALT (7-56) U/L Alkaline Phosphatase (38-126) U/L Lactate Dehydrogenase (333-699) U/L Total Creatine Kinase (35-230) U/L CK-MB (CK-2) (0.0-3.6) ng/mL CK-MB (CK-2) % Total Protein (5.8-8.3) g/dL Albumin (3.0-4.8) g/dL Globulin gm/dL Albumin/Globulin Ratio (1.1-1.8) Venous Blood Potassium (3.6-5.2) mmol/L Heparin-induced Plt Ab (Negative) Blood Type Antibody Screen Crossmatch See Detail BBK History Checked Laboratory Results - last 24 hr 06/17/18 06/17/18 06/19/18 08:25 16:12 11:50 WBC RBC Hgb Hct MCV MCH MCHC RDW Plt Count Corrected WBC (Man) Neutrophils % (Manual) Band Neutrophils % Lymphocytes % (Manual) Monocytes % (Manual) Eosinophils % (Manual) Metamyelocytes % Myelocytes % Promyelocytes % Nucleated RBC % Platelet Evaluation Poikilocytosis (manual Anisocytosis (manual) Retic Count Haptoglobin PT INR APTT Fibrin Degrad Products pCO2 pO2 HCO3 ABG pH ABG Total CO2 ABG O2 Saturation ABG O2 Content ABG Base Excess ABG Hemoglobin ABG Carboxyhemoglobin POC ABG HHb (Measured) ABG Methemoglobin ABG O2 Capacity VBG pH VBG pCO2 VBG HCO3 VBG Total CO2 VBG O2 Sat (Calc) VBG Base Excess VBG Potassium Hgb O2 Saturation Sodium Chloride Glucose Lactate FiO2 Potassium Carbon Dioxide Anion Gap BUN Creatinine Est GFR ( Amer) Est GFR (Non-Af Amer) POC Glucose (mg/dL) Random Glucose Calcium Phosphorus Magnesium Total Bilirubin Direct Bilirubin 7.3 H GGT 1046 H AST ALT Alkaline Phosphatase Lactate Dehydrogenase Total Creatine Kinase 299 H CK-MB (CK-2) 3.5 CK-MB (CK-2) % Cancelled Total Protein Albumin Globulin Albumin/Globulin Ratio Venous Blood Potassium Heparin-induced Plt Ab Negative Blood Type Antibody Screen Crossmatch See Detail BBK History Checked 06/19/18 06/19/18 06/19/18 13:00 16:30 16:30 WBC RBC Hgb Hct MCV MCH MCHC RDW Plt Count Corrected WBC (Man) Neutrophils % (Manual) Band Neutrophils % Lymphocytes % (Manual) Monocytes % (Manual) Eosinophils % (Manual) Metamyelocytes % Myelocytes % Promyelocytes % Nucleated RBC % Platelet Evaluation Poikilocytosis (manual Anisocytosis (manual) Retic Count 3.80 H Haptoglobin 119.2 PT 98.9 H INR 8.24 H* APTT 71.8 H Fibrin Degrad Products pCO2 pO2 HCO3 ABG pH ABG Total CO2 ABG O2 Saturation ABG O2 Content ABG Base Excess ABG Hemoglobin ABG Carboxyhemoglobin POC ABG HHb (Measured) ABG Methemoglobin ABG O2 Capacity VBG pH VBG pCO2 VBG HCO3 VBG Total CO2 VBG O2 Sat (Calc) VBG Base Excess VBG Potassium Hgb O2 Saturation Sodium Chloride Glucose Lactate FiO2 Potassium Carbon Dioxide Anion Gap BUN Creatinine Est GFR ( Amer) Est GFR (Non-Af Amer) POC Glucose (mg/dL) Random Glucose Calcium Phosphorus Magnesium Total Bilirubin Direct Bilirubin GGT AST ALT Alkaline Phosphatase Lactate Dehydrogenase Total Creatine Kinase CK-MB (CK-2) CK-MB (CK-2) % Total Protein Albumin Globulin Albumin/Globulin Ratio Venous Blood Potassium Heparin-induced Plt Ab Blood Type Antibody Screen Crossmatch BBK History Checked 06/19/18 06/19/18 06/19/18 16:30 16:30 17:18 WBC RBC Hgb Hct MCV MCH MCHC RDW Plt Count Corrected WBC (Man) Neutrophils % (Manual) Band Neutrophils % Lymphocytes % (Manual) Monocytes % (Manual) Eosinophils % (Manual) Metamyelocytes % Myelocytes % Promyelocytes % Nucleated RBC % Platelet Evaluation Poikilocytosis (manual Anisocytosis (manual) Retic Count Haptoglobin PT INR APTT Fibrin Degrad Products >40 ug/ml pCO2 13 L* pO2 154.0 H HCO3 6.0 L* ABG pH 7.27 L ABG Total CO2 6.4 L ABG O2 Saturation 100.0 H ABG O2 Content 11.7 L ABG Base Excess -18.9 L ABG Hemoglobin 8.3 L ABG Carboxyhemoglobin 1.3 POC ABG HHb (Measured) 0 ABG Methemoglobin 1.2 ABG O2 Capacity 11.7 L VBG pH VBG pCO2 VBG HCO3 VBG Total CO2 VBG O2 Sat (Calc) VBG Base Excess VBG Potassium Hgb O2 Saturation 97.4 Sodium Chloride Glucose Lactate FiO2 40.0 Potassium Carbon Dioxide Anion Gap BUN Creatinine Est GFR ( Amer) Est GFR (Non-Af Amer) POC Glucose (mg/dL) Random Glucose Calcium Phosphorus Magnesium Total Bilirubin Direct Bilirubin GGT AST ALT Alkaline Phosphatase Lactate Dehydrogenase 25164 H Total Creatine Kinase CK-MB (CK-2) CK-MB (CK-2) % Total Protein Albumin Globulin Albumin/Globulin Ratio Venous Blood Potassium Heparin-induced Plt Ab Blood Type Antibody Screen Crossmatch BBK History Checked 06/19/18 06/19/18 06/19/18 18:36 18:47 19:02 WBC RBC Hgb Hct MCV MCH MCHC RDW Plt Count Corrected WBC (Man) Neutrophils % (Manual) Band Neutrophils % Lymphocytes % (Manual) Monocytes % (Manual) Eosinophils % (Manual) Metamyelocytes % Myelocytes % Promyelocytes % Nucleated RBC % Platelet Evaluation Poikilocytosis (manual Anisocytosis (manual) Retic Count Haptoglobin PT INR APTT Fibrin Degrad Products pCO2 pO2 89 H HCO3 ABG pH ABG Total CO2 ABG O2 Saturation ABG O2 Content ABG Base Excess ABG Hemoglobin ABG Carboxyhemoglobin POC ABG HHb (Measured) ABG Methemoglobin ABG O2 Capacity VBG pH 7.12 L* VBG pCO2 30.0 L VBG HCO3 9.8 L VBG Total CO2 10.7 L VBG O2 Sat (Calc) 98.8 H VBG Base Excess -18.3 L VBG Potassium 6.1 H Hgb O2 Saturation Sodium 136.0 138 Chloride 101.0 102 Glucose 18 L* D Lactate 17.4 H* FiO2 21.0 Potassium 5.9 H* D Carbon Dioxide 11 L Anion Gap 31 H BUN 49 H Creatinine 2.9 H Est GFR ( Amer) 20 Est GFR (Non-Af Amer) 16 POC Glucose (mg/dL) < 20 L* Random Glucose 22 L* D Calcium 7.9 L Phosphorus Magnesium Total Bilirubin Direct Bilirubin GGT AST ALT Alkaline Phosphatase Lactate Dehydrogenase Total Creatine Kinase CK-MB (CK-2) CK-MB (CK-2) % Total Protein Albumin Globulin Albumin/Globulin Ratio Venous Blood Potassium 6.1 H Heparin-induced Plt Ab Blood Type Antibody Screen Crossmatch BBK History Checked 06/19/18 06/19/18 06/19/18 19:25 20:10 20:13 WBC RBC Hgb Hct MCV MCH MCHC RDW Plt Count Corrected WBC (Man) Neutrophils % (Manual) Band Neutrophils % Lymphocytes % (Manual) Monocytes % (Manual) Eosinophils % (Manual) Metamyelocytes % Myelocytes % Promyelocytes % Nucleated RBC % Platelet Evaluation Poikilocytosis (manual Anisocytosis (manual) Retic Count Haptoglobin PT INR APTT Fibrin Degrad Products pCO2 pO2 HCO3 ABG pH ABG Total CO2 ABG O2 Saturation ABG O2 Content ABG Base Excess ABG Hemoglobin ABG Carboxyhemoglobin POC ABG HHb (Measured) ABG Methemoglobin ABG O2 Capacity VBG pH VBG pCO2 VBG HCO3 VBG Total CO2 VBG O2 Sat (Calc) VBG Base Excess VBG Potassium Hgb O2 Saturation Sodium Chloride Glucose Lactate FiO2 Potassium Carbon Dioxide Anion Gap BUN Creatinine Est GFR ( Amer) Est GFR (Non-Af Amer) POC Glucose (mg/dL) 62 L 32 L* 25 L* Random Glucose Calcium Phosphorus Magnesium Total Bilirubin Direct Bilirubin GGT AST ALT Alkaline Phosphatase Lactate Dehydrogenase Total Creatine Kinase CK-MB (CK-2) CK-MB (CK-2) % Total Protein Albumin Globulin Albumin/Globulin Ratio Venous Blood Potassium Heparin-induced Plt Ab Blood Type Antibody Screen Crossmatch BBK History Checked 06/19/18 06/19/18 06/19/18 20:42 21:53 21:57 WBC RBC Hgb Hct MCV MCH MCHC RDW Plt Count Corrected WBC (Man) Neutrophils % (Manual) Band Neutrophils % Lymphocytes % (Manual) Monocytes % (Manual) Eosinophils % (Manual) Metamyelocytes % Myelocytes % Promyelocytes % Nucleated RBC % Platelet Evaluation Poikilocytosis (manual Anisocytosis (manual) Retic Count Haptoglobin PT INR APTT > 400.0 H* Fibrin Degrad Products pCO2 19 L* pO2 133.0 H HCO3 5.5 L* ABG pH 7.07 L* ABG Total CO2 6.1 L ABG O2 Saturation 99.0 H ABG O2 Content 10.9 L ABG Base Excess -22.7 L ABG Hemoglobin 7.8 L ABG Carboxyhemoglobin 0.8 POC ABG HHb (Measured) 1.0 ABG Methemoglobin 1.3 ABG O2 Capacity 11.0 L VBG pH VBG pCO2 VBG HCO3 VBG Total CO2 VBG O2 Sat (Calc) VBG Base Excess VBG Potassium Hgb O2 Saturation 96.9 Sodium Chloride Glucose Lactate FiO2 40.0 Potassium Carbon Dioxide Anion Gap BUN Creatinine Est GFR ( Amer) Est GFR (Non-Af Amer) POC Glucose (mg/dL) 111 H Random Glucose Calcium Phosphorus Magnesium Total Bilirubin Direct Bilirubin GGT AST ALT Alkaline Phosphatase Lactate Dehydrogenase Total Creatine Kinase CK-MB (CK-2) CK-MB (CK-2) % Total Protein Albumin Globulin Albumin/Globulin Ratio Venous Blood Potassium Heparin-induced Plt Ab Blood Type Antibody Screen Crossmatch BBK History Checked 06/19/18 06/19/18 06/19/18 21:57 23:00 23:57 WBC RBC Hgb Hct MCV MCH MCHC RDW Plt Count Corrected WBC (Man) Neutrophils % (Manual) Band Neutrophils % Lymphocytes % (Manual) Monocytes % (Manual) Eosinophils % (Manual) Metamyelocytes % Myelocytes % Promyelocytes % Nucleated RBC % Platelet Evaluation Poikilocytosis (manual Anisocytosis (manual) Retic Count Haptoglobin PT INR APTT Fibrin Degrad Products pCO2 pO2 HCO3 ABG pH ABG Total CO2 ABG O2 Saturation ABG O2 Content ABG Base Excess ABG Hemoglobin ABG Carboxyhemoglobin POC ABG HHb (Measured) ABG Methemoglobin ABG O2 Capacity VBG pH VBG pCO2 VBG HCO3 VBG Total CO2 VBG O2 Sat (Calc) VBG Base Excess VBG Potassium Hgb O2 Saturation Sodium 137 Chloride 102 Glucose Lactate FiO2 Potassium 5.9 H* Carbon Dioxide 7 L D Anion Gap 34 H BUN 49 H Creatinine 3.1 H Est GFR ( Amer) 18 Est GFR (Non-Af Amer) 15 POC Glucose (mg/dL) 38 L* Random Glucose 122 H Calcium 7.8 L Phosphorus 11.8 H Magnesium 2.6 H Total Bilirubin Direct Bilirubin GGT AST ALT Alkaline Phosphatase Lactate Dehydrogenase Total Creatine Kinase CK-MB (CK-2) CK-MB (CK-2) % Total Protein Albumin Globulin Albumin/Globulin Ratio Venous Blood Potassium Heparin-induced Plt Ab Blood Type Antibody Screen Crossmatch BBK History Checked 06/20/18 06/20/18 06/20/18 00:58 01:49 02:00 WBC RBC Hgb Hct MCV MCH MCHC RDW Plt Count Corrected WBC (Man) Neutrophils % (Manual) Band Neutrophils % Lymphocytes % (Manual) Monocytes % (Manual) Eosinophils % (Manual) Metamyelocytes % Myelocytes % Promyelocytes % Nucleated RBC % Platelet Evaluation Poikilocytosis (manual Anisocytosis (manual) Retic Count Haptoglobin PT INR APTT Fibrin Degrad Products pCO2 pO2 HCO3 ABG pH ABG Total CO2 ABG O2 Saturation ABG O2 Content ABG Base Excess ABG Hemoglobin ABG Carboxyhemoglobin POC ABG HHb (Measured) ABG Methemoglobin ABG O2 Capacity VBG pH VBG pCO2 VBG HCO3 VBG Total CO2 VBG O2 Sat (Calc) VBG Base Excess VBG Potassium Hgb O2 Saturation Sodium 138 Chloride 102 Glucose Lactate FiO2 Potassium 6.2 H* Carbon Dioxide 8 L Anion Gap 33 H BUN 50 H Creatinine 3.2 H Est GFR ( Amer) 18 Est GFR (Non-Af Amer) 15 POC Glucose (mg/dL) 34 L* 125 H Random Glucose 182 H Calcium 7.5 L Phosphorus Magnesium Total Bilirubin Direct Bilirubin GGT AST ALT Alkaline Phosphatase Lactate Dehydrogenase Total Creatine Kinase CK-MB (CK-2) CK-MB (CK-2) % Total Protein Albumin Globulin Albumin/Globulin Ratio Venous Blood Potassium Heparin-induced Plt Ab Blood Type Antibody Screen Crossmatch BBK History Checked 06/20/18 06/20/18 06/20/18 03:27 04:25 06:00 WBC 50.3 H* RBC 2.42 L Hgb 6.2 L* D Hct 21.9 L MCV 90.5 D MCH 25.6 MCHC 28.3 L RDW 23.6 H Plt Count 24 L* Corrected WBC (Man) 19.6 H Neutrophils % (Manual) 75 H Band Neutrophils % 4 H Lymphocytes % (Manual) 10 L Monocytes % (Manual) 3 Eosinophils % (Manual) 1 Metamyelocytes % 2 Myelocytes % 3 Promyelocytes % 2 Nucleated RBC % 157 Platelet Evaluation Low Poikilocytosis (manual Slight Anisocytosis (manual) Slight Retic Count Haptoglobin PT INR APTT Fibrin Degrad Products pCO2 pO2 HCO3 ABG pH ABG Total CO2 ABG O2 Saturation ABG O2 Content ABG Base Excess ABG Hemoglobin ABG Carboxyhemoglobin POC ABG HHb (Measured) ABG Methemoglobin ABG O2 Capacity VBG pH VBG pCO2 VBG HCO3 VBG Total CO2 VBG O2 Sat (Calc) VBG Base Excess VBG Potassium Hgb O2 Saturation Sodium Chloride Glucose Lactate FiO2 Potassium Carbon Dioxide Anion Gap BUN Creatinine Est GFR ( Amer) Est GFR (Non-Af Amer) POC Glucose (mg/dL) 82 145 H Random Glucose Calcium Phosphorus Magnesium Total Bilirubin Direct Bilirubin GGT AST ALT Alkaline Phosphatase Lactate Dehydrogenase Total Creatine Kinase CK-MB (CK-2) CK-MB (CK-2) % Total Protein Albumin Globulin Albumin/Globulin Ratio Venous Blood Potassium Heparin-induced Plt Ab Blood Type Antibody Screen Crossmatch BBK History Checked 06/20/18 06/20/18 06/20/18 06:00 06:00 06:34 WBC RBC Hgb Hct MCV MCH MCHC RDW Plt Count Corrected WBC (Man) Neutrophils % (Manual) Band Neutrophils % Lymphocytes % (Manual) Monocytes % (Manual) Eosinophils % (Manual) Metamyelocytes % Myelocytes % Promyelocytes % Nucleated RBC % Platelet Evaluation Poikilocytosis (manual Anisocytosis (manual) Retic Count Haptoglobin PT INR APTT > 400.0 H* Fibrin Degrad Products pCO2 26 L pO2 120.0 H HCO3 4.8 L* ABG pH 6.87 L* ABG Total CO2 5.6 L ABG O2 Saturation 98.7 H ABG O2 Content 8.9 L ABG Base Excess -26.3 L ABG Hemoglobin 6.4 L ABG Carboxyhemoglobin 1.0 POC ABG HHb (Measured) 1.3 ABG Methemoglobin 1.6 ABG O2 Capacity 9.0 L VBG pH VBG pCO2 VBG HCO3 VBG Total CO2 VBG O2 Sat (Calc) VBG Base Excess VBG Potassium Hgb O2 Saturation 96.2 Sodium 138 Chloride 103 Glucose Lactate FiO2 40.0 Potassium 6.6 H* Carbon Dioxide 6 L D Anion Gap 36 H BUN 48 H Creatinine 3.4 H Est GFR ( Amer) 17 Est GFR (Non-Af Amer) 14 POC Glucose (mg/dL) Random Glucose 156 H Calcium 7.4 L Phosphorus 14.4 H Magnesium 2.7 H Total Bilirubin 8.8 H Direct [place] 57802 H ALT 929 H Alkaline Phosphatase 390 H D Lactate Dehydrogenase Total Creatine Kinase CK-MB (CK-2) CK-MB (CK-2) % Total Protein 3.6 L Albumin 1.7 L Globulin 1.9 Albumin/Globulin Ratio 0.9 L Venous Blood Potassium Heparin-induced Plt Ab Blood Type Antibody Screen Crossmatch BBK History Checked 06/20/18 06/20/18 06/20/18 06:38 07:42 08:30 WBC RBC Hgb Hct MCV MCH MCHC RDW Plt Count Corrected WBC (Man) Neutrophils % (Manual) Band Neutrophils % Lymphocytes % (Manual) Monocytes % (Manual) Eosinophils % (Manual) Metamyelocytes % Myelocytes % Promyelocytes % Nucleated RBC % Platelet Evaluation Poikilocytosis (manual Anisocytosis (manual) Retic Count Haptoglobin PT INR APTT Fibrin Degrad Products pCO2 pO2 HCO3 ABG pH ABG Total CO2 ABG O2 Saturation ABG O2 Content ABG Base Excess ABG Hemoglobin ABG Carboxyhemoglobin POC ABG HHb (Measured) ABG Methemoglobin ABG O2 Capacity VBG pH VBG pCO2 VBG HCO3 VBG Total CO2 VBG O2 Sat (Calc) VBG Base Excess VBG Potassium Hgb O2 Saturation Sodium Chloride Glucose Lactate FiO2 Potassium Carbon Dioxide Anion Gap BUN Creatinine Est GFR ( Amer) Est GFR (Non-Af Amer) POC Glucose (mg/dL) 76 74 Random Glucose Calcium Phosphorus Magnesium Total Bilirubin Direct Bilirubin GGT AST ALT Alkaline Phosphatase Lactate Dehydrogenase Total Creatine Kinase CK-MB (CK-2) CK-MB (CK-2) % Total Protein Albumin Globulin Albumin/Globulin Ratio Venous Blood Potassium Heparin-induced Plt Ab Blood Type O POSITIVE Antibody Screen Negative Crossmatch See Detail BBK History Checked Patient has bt 06/20/18 08:55 WBC RBC Hgb Hct MCV MCH MCHC RDW Plt Count Corrected WBC (Man) Neutrophils % (Manual) Band Neutrophils % Lymphocytes % (Manual) Monocytes % (Manual) Eosinophils % (Manual) Metamyelocytes % Myelocytes % Promyelocytes % Nucleated RBC % Platelet Evaluation Poikilocytosis (manual Anisocytosis (manual) Retic Count Haptoglobin PT INR APTT Fibrin Degrad Products pCO2 pO2 HCO3 ABG pH ABG Total CO2 ABG O2 Saturation ABG O2 Content ABG Base Excess ABG Hemoglobin ABG Carboxyhemoglobin POC ABG HHb (Measured) ABG Methemoglobin ABG O2 Capacity VBG pH VBG pCO2 VBG HCO3 VBG Total CO2 VBG O2 Sat (Calc) VBG Base Excess VBG Potassium Hgb O2 Saturation Sodium Chloride Glucose Lactate FiO2 Potassium Carbon Dioxide Anion Gap BUN Creatinine Est GFR ( Amer) Est GFR (Non-Af Amer) POC Glucose (mg/dL) 73 Random Glucose Calcium Phosphorus Magnesium Total Bilirubin Direct Bilirubin GGT AST ALT Alkaline Phosphatase Lactate Dehydrogenase Total Creatine Kinase CK-MB (CK-2) CK-MB (CK-2) % Total Protein Albumin Globulin Albumin/Globulin Ratio Venous Blood Potassium Heparin-induced Plt Ab Blood Type Antibody Screen Crossmatch BBK History Checked EKG/Cardiology Studies: Cardiology / EKG Studies 06/20/18 02:53 ELECTROCARDIOGRAM Stat Comment: Reason For Exam: hyperkalemia 06/20/18 07:02 EKG [ELECTROCARDIOGRAM] Stat Comment: Reason For Exam: elevated K 06/20/18 07:39 EKG [ELECTROCARDIOGRAM] Stat Comment: Reason For Exam: K 6.6 Fingerstick Blood Sugar Results: 73 Review of Systems - Review of Systems Systems not reviewed;Unavailable: Intubated Critical Care Progress Note - Ventilator Checklist Head of Bed 30 Degrees: Yes Daily Sedation Vacation: Yes Daily Assessment of Readiness to Wean: Yes Daily Spontaneous Breathing Trial: Yes PUD Prophalyxis: Yes DVT Prophylaxis: Yes Oral Care with Chlorhexidine Gluconate {CHG}: Yes - Vent Settings MODE:: PRVC TIDAL VOLUME:: 400 RESP RATE:: 14 FIO2:: 40 PEEP:: 5 - Extremities/Vascular Does the Patient have a Central Venous Catheter?: Yes Insertion Site: Femoral Vein Does the Patient need a Central Venous Catheter?: Yes Does the Patient have a Kraus Catheter?: No - Restraints Justification for Restraints: High risk for removing IV access - Prophylaxis GI Prophylaxis GI: PPI - Prophylaxis DVT Prophylaxis DVT: SCDs - Nutrition Nutrition: Nutrition Category Date Time Status NPO Diet [DIET] Diets 06/16/18 Lunch Ordered Assessment/Plan - Assessment and Plan (Free Text) Assessment: 62F with hx of COPD, breast cancer with mets s/p chemo/radiation (08/2017) and left lumpectomy, CKD (baseline Cr 2.4), HTN, bipolar disorder, depression admitted to the ICU for hypovolemic vs septic shock, with MODS including MARILYN, liver failure in setting of metastatic breast cancer. Patient changed to phenylephrine this am d/t mottling of toes during dialysis and higher levophed requirement. patient was changed back to levophed d/t inadequate BP support of Phenyephrine. Changed to Argatroban in setting of HIT suspicion (hepatic dosing) ; argatroban discontinued after elevated PTT recieved. Patient was not arousable this am despite fentanyl vacation. hgb 6.2 PLT 24, family declined blood products. Blood Glucose control poor overnight with episodes of hypoglycemia treated with dextrose. Transaminitis worsening [place] AST of >71750. Palliative care was consulted and the family decided to continue with terminal extubation and comfort care measures. Plan: General: Due to deteriorating status family has decided on terminal extubation and comfort care measures. Nakia Velasquez has been consulted, has met with family and is following Neuro: patient is not arousable this am despite being fentanyl for several hours, GCS3 Cardio: Phenylephrine drip stopped and returned to levophed d/t inability to maintain BP Maintain MAP>65. Echo 06/12/18 shows normal EF. normal valve function, mild TR. normal IVC size, collapses >50% with inspiration. Hx of HTN. hold home irbesartan and bystolic in setting of low BP. Monitor Pulm: Intubated on prvc mode Vt 400, RR14 PEEP 5 Fio2 40% - ABG 6.87/CO2 26/ O2 120/ HCO3 4.8 On 50mg Q12 hydrocortisone Continue with HOB elevation> 35 degrees, aspiration precautions. Continue with protected lung ventilation strategies with TV of 6 ml/kg of IBW, plateau pressure less than 35, head of bed elevation above 35 degrees, bronchodilators, keep oxygenation above 90%, pulm toileting CXR 06/19 CT chest 06/06 shows moderate size right sided pleural effusion. Nodularity in both lung, indeterminate for malignancy, largest nodule is 1.3 cm (similar findings on chest CT on 05/2018). Mild diffuse subcutaneous edema in the lower abdomen and pelvis. Liver is heterogenous in appearance and appears to contain multiple mets. LE US negative for DVT, no right heart strain on echo; IVC compressible supporting hypovolemic shock differential GI: NPO; placed on Protonix drip d/t OG tube bloody output 200 cc Transaminitis likely 2/2 mets to liver metastasis vs bone etiology vs iatrogenic (possibly 2/2 antibiotic medications) Direct bili GGT elevated indicating liver etiology Transaminitis worsening Gall bladder and liver US; negative except for collapsed GB Dietitian consult for feeding recommendations GI on board. Renal: BUN/Cr 48/3.4 (baseline Cr 2.4) Replace lytes, maintain euvolemia. unable to complete dialysis today d/t hypotension Monitor ID: Initial and repeat blood cultures negative x6 Urine culture shows yeast, discontinued kraus catheter Erythematous 3cm x 5cm area right superior posterior thigh with single large bullae 1cm x 1cm, left thigh erythematous 5cm x 4 cm area with multiple small bullae, serous weeping and small 1/5 cm skin tear 2/2 burst bullae no longer on abx ID following Heme: Hgb 6.2, family declined blood transfusion Plt 24, HIT ab negative, family declined platelet transfusion Follow up Flow Cytometry continue to monitor DVT ppx: scds, argatroban (d/t HIT suspicion) GI ppx: pepcid - Date & Time Date: 06/20/18 Time: 07:30 <Tim Paulson - Last Filed: 06/20/18 14:33> CCU Objective - Vital Signs / Intake & Output Vital Signs (Last 4 hours): Vital Signs Temp Pulse BP 06/20/18 12:17 0/0 L 09/18/18 12:00 96.1 F L 09/18/18 11:18 91/24 L 06/20/18 11:00 96.3 F L 58 L 98/29 L Intake and Output (Last 8hrs): Intake & Output 06/19/18 06/20/18 06/20/18 22:59 06:59 14:59 Intake Total 1416 3141 283 Output Total 200 Balance 1416 2941 283 Weight 319 lb Intake: IV 1416 3141 283 Left femoral 999 1000 Right Subclavian 1320 Output: Gastric Amount 200 Stomach 200 Other: Voiding Method Incontinent # Bowel Movements 1 - Medications Active Medications: Active Medications Generic Name Dose Route Start Last Admin Trade Name Freq PRN Reason Stop Dose Admin Sodium Bicarbonate 50 meq/ 1,050 mls @ 100 mls/hr 06/19/18 22:15 06/19/18 22: 49 Sodium Chloride IV 100 mls/hr .[id number] Administration Levalbuterol HCl 1.25 mg 06/07/18 02:00 06/20/18 13:03 Xopenex IH Not Given [id number] Morphine Sulfate 4 mg 06/20/18 11:32 Morphine IVP Q1H PRN dyspnea - Patient Studies Lab Studies: Microbiology Studies 06/16/18 07:20 Blood Culture - Preliminary Blood-Venous NO GROWTH AFTER 4 DAYS 06/16/18 07:00 Blood Culture - Preliminary Blood-Venous NO GROWTH AFTER 4 DAYS 06/18/18 13:15 Gram Stain - Final Sputum Induced Sputum Culture - Final Yeast Species Lab Studies 06/20/18 06/20/18 06/20/18 Range/Units 08:55 08:30 07:42 WBC (4.5-11.0) 10^3/ul RBC (3.5-6.1) 10^6/uL Hgb (12.0-16.0) g/dL Hct (36.0-48.0) % MCV (80.0-105.0) fl MCH (25.0-35.0) pg MCHC (31.0-37.0) g/dl RDW (11.5-14.5) % Plt Count (120.0-450.0) 10^3/uL Corrected WBC (Man) (4.5-11.0) K/mm3 Neutrophils % (Manual) (50.0-70.0) % Band Neutrophils % (0-2) % Lymphocytes % (Manual) (22.0-35.0) % Monocytes % (Manual) (1.0-6.0) % Eosinophils % (Manual) (0.0-3.0) % Metamyelocytes % % Myelocytes % % Promyelocytes % % Nucleated RBC % % Platelet Evaluation (NORMAL) Poikilocytosis (manual Anisocytosis (manual) Retic Count (0.5-1.5) % Haptoglobin (30.0-200.0) mg/dL APTT (25.1-36.5) Seconds Fibrin Degrad Products (< 10 ug/mL) pCO2 (35-45) mm/Hg pO2 (80-100) mm/Hg HCO3 (21-28) mmol/L ABG pH (7.35-7.45) ABG Total CO2 (22-28) mmol.L ABG O2 Saturation (95-98) % ABG O2 Content (15-23) ML/dl ABG Base Excess (-2.0-3.0) mmol/L ABG Hemoglobin (11.7-17.4) g/dL ABG Carboxyhemoglobin (0.5-1.5) % POC ABG HHb (Measured) (0-5) % ABG Methemoglobin (0.0-3.0) % ABG O2 Capacity (16-24) mL/dl VBG pH (7.32-7.43) VBG pCO2 (40-60) VBG HCO3 (21-28) mmol/l VBG Total CO2 (22-28) mmol.L VBG O2 Sat (Calc) (40-65) % VBG Base Excess (0.0-2.0) mmol/L VBG Potassium (3.6-5.2) mmol/L Hgb O2 Saturation (95.0-98.0) % Sodium (132-148) mmol/L Chloride (98-107) mmol/L Glucose (65-105) mg/dl Lactate (0.7-2.1) mmol/L FiO2 % Potassium (3.6-5.0) mmol/L Carbon Dioxide (21-33) mmol/L Anion Gap (10-20) BUN (7-21) mg/dL Creatinine (0.7-1.2) mg/dl Est GFR ( Amer) Est GFR (Non-Af Amer) POC Glucose (mg/dL) 73 74 (65-110) mg/dL Random Glucose (70-110) mg/dL Calcium (8.4-10.5) mg/dL Phosphorus (2.5-4.5) mg/dL Magnesium (1.7-2.2) mg/dL Total Bilirubin (0.2-1.3) mg/dL AST (14-36) U/L ALT (7-56) U/L Alkaline Phosphatase (38-126) U/L Lactate Dehydrogenase (333-699) U/L Total Protein (5.8-8.3) g/dL Albumin (3.0-4.8) g/dL Globulin gm/dL Albumin/Globulin Ratio (1.1-1.8) Venous Blood Potassium (3.6-5.2) mmol/L Heparin-induced Plt Ab (Negative) Blood Type O POSITIVE Antibody Screen Negative Crossmatch See Detail BBK History Checked Patient has bt 06/20/18 06/20/18 06/20/18 Range/Units 06:38 06:34 06:00 WBC (4.5-11.0) 10^3/ul RBC (3.5-6.1) 10^6/uL Hgb (12.0-16.0) g/dL Hct (36.0-48.0) % MCV (80.0-105.0) fl MCH (25.0-35.0) pg MCHC (31.0-37.0) g/dl RDW (11.5-14.5) % Plt Count (120.0-450.0) 10^3/uL Corrected WBC (Man) (4.5-11.0) K/mm3 Neutrophils % (Manual) (50.0-70.0) % Band Neutrophils % (0-2) % Lymphocytes % (Manual) (22.0-35.0) % Monocytes % (Manual) (1.0-6.0) % Eosinophils % (Manual) (0.0-3.0) % Metamyelocytes % % Myelocytes % % Promyelocytes % % Nucleated RBC % % Platelet Evaluation (NORMAL) Poikilocytosis (manual Anisocytosis (manual) Retic Count (0.5-1.5) % Haptoglobin (30.0-200.0) mg/dL APTT > 400.0 H* (25.1-36.5) Seconds Fibrin Degrad Products (< 10 ug/mL) pCO2 26 L (35-45) mm/Hg pO2 120.0 H (80-100) mm/Hg HCO3 4.8 L* (21-28) mmol/L ABG pH 6.87 L* (7.35-7.45) ABG Total CO2 5.6 L (22-28) mmol.L ABG O2 Saturation 98.7 H (95-98) % ABG O2 Content 8.9 L (15-23) ML/dl ABG Base Excess -26.3 L (-2.0-3.0) mmol/L ABG Hemoglobin 6.4 L (11.7-17.4) g/dL ABG Carboxyhemoglobin 1.0 (0.5-1.5) % POC ABG HHb (Measured) 1.3 (0-5) % ABG Methemoglobin 1.6 (0.0-3.0) % ABG O2 Capacity 9.0 L (16-24) mL/dl VBG pH (7.32-7.43) VBG pCO2 (40-60) VBG HCO3 (21-28) mmol/l VBG Total CO2 (22-28) mmol.L VBG O2 Sat (Calc) (40-65) % VBG Base Excess (0.0-2.0) mmol/L VBG Potassium (3.6-5.2) mmol/L Hgb O2 Saturation 96.2 (95.0-98.0) % Sodium (132-148) mmol/L Chloride (98-107) mmol/L Glucose (65-105) mg/dl Lactate (0.7-2.1) mmol/L FiO2 40.0 % Potassium (3.6-5.0) mmol/L Carbon Dioxide (21-33) mmol/L Anion Gap (10-20) BUN (7-21) mg/dL Creatinine (0.7-1.2) mg/dl Est GFR ( Amer) Est GFR (Non-Af Amer) POC Glucose (mg/dL) 76 (65-110) mg/dL Random Glucose (70-110) mg/dL Calcium (8.4-10.5) mg/dL Phosphorus (2.5-4.5) mg/dL Magnesium (1.7-2.2) mg/dL Total Bilirubin (0.2-1.3) mg/dL AST (14-36) U/L ALT (7-56) U/L Alkaline Phosphatase (38-126) U/L Lactate Dehydrogenase (333-699) U/L Total Protein (5.8-8.3) g/dL Albumin (3.0-4.8) g/dL Globulin gm/dL Albumin/Globulin Ratio (1.1-1.8) Venous Blood Potassium (3.6-5.2) mmol/L Heparin-induced Plt Ab (Negative) Blood Type Antibody Screen Crossmatch BBK History Checked 06/20/18 06/20/18 06/20/18 Range/Units 06:00 06:00 04:25 WBC 50.3 H* (4.5-11.0) 10^3/ul RBC 2.42 L (3.5-6.1) 10^6/uL Hgb 6.2 L* D (12.0-16.0) g/dL Hct 21.9 L (36.0-48.0) % MCV 90.5 D (80.0-105.0) fl MCH 25.6 (25.0-35.0) pg MCHC 28.3 L (31.0-37.0) g/dl RDW 23.6 H (11.5-14.5) % Plt Count 24 L* (120.0-450.0) 10^3/uL Corrected WBC (Man) 19.6 H (4.5-11.0) K/mm3 Neutrophils % (Manual) 75 H (50.0-70.0) % Band Neutrophils % 4 H (0-2) % Lymphocytes % (Manual) 10 L (22.0-35.0) % Monocytes % (Manual) 3 (1.0-6.0) % Eosinophils % (Manual) 1 (0.0-3.0) % Metamyelocytes % 2 % Myelocytes % 3 % Promyelocytes % 2 % Nucleated RBC % 157 % Platelet Evaluation Low (NORMAL) Poikilocytosis (manual Slight Anisocytosis (manual) Slight Retic Count (0.5-1.5) % Haptoglobin (30.0-200.0) mg/dL APTT (25.1-36.5) Seconds Fibrin Degrad Products (< 10 ug/mL) pCO2 (35-45) mm/Hg pO2 (80-100) mm/Hg HCO3 (21-28) mmol/L ABG pH (7.35-7.45) ABG Total CO2 (22-28) mmol.L ABG O2 Saturation (95-98) % ABG O2 Content (15-23) ML/dl ABG Base Excess (-2.0-3.0) mmol/L ABG Hemoglobin (11.7-17.4) g/dL ABG Carboxyhemoglobin (0.5-1.5) % POC ABG HHb (Measured) (0-5) % ABG Methemoglobin (0.0-3.0) % ABG O2 Capacity (16-24) mL/dl VBG pH (7.32-7.43) VBG pCO2 (40-60) VBG HCO3 (21-28) mmol/l VBG Total CO2 (22-28) mmol.L VBG O2 Sat (Calc) (40-65) % VBG Base Excess (0.0-2.0) mmol/L VBG Potassium (3.6-5.2) mmol/L Hgb O2 Saturation (95.0-98.0) % Sodium 138 (132-148) mmol/L Chloride 103 (98-107) mmol/L Glucose (65-105) mg/dl Lactate (0.7-2.1) mmol/L FiO2 % Potassium 6.6 H* (3.6-5.0) mmol/L Carbon Dioxide 6 L D (21-33) mmol/L Anion Gap 36 H (10-20) BUN 48 H (7-21) mg/dL Creatinine 3.4 H (0.7-1.2) mg/dl Est GFR ( Amer) 17 Est GFR (Non-Af Amer) 14 POC Glucose (mg/dL) 145 H (65-110) mg/dL Random Glucose 156 H (70-110) mg/dL Calcium 7.4 L (8.4-10.5) mg/dL Phosphorus 14.4 H (2.5-4.5) mg/dL Magnesium 2.7 H (1.7-2.2) mg/dL Total Bilirubin 8.8 H (0.2-1.3) mg/dL AST 29872 H (14-36) U/L ALT 929 H (7-56) U/L Alkaline Phosphatase 390 H D (38-126) U/L Lactate Dehydrogenase (333-699) U/L Total Protein 3.6 L (5.8-8.3) g/dL Albumin 1.7 L (3.0-4.8) g/dL Globulin 1.9 gm/dL Albumin/Globulin Ratio 0.9 L (1.1-1.8) Venous Blood Potassium (3.6-5.2) mmol/L Heparin-induced Plt Ab (Negative) Blood Type Antibody Screen Crossmatch BBK History Checked 06/20/18 06/20/18 06/20/18 Range/Units 03:27 02:00 01:49 WBC (4.5-11.0) 10^3/ul RBC (3.5-6.1) 10^6/uL Hgb (12.0-16.0) g/dL Hct (36.0-48.0) % MCV (80.0-105.0) fl MCH (25.0-35.0) pg MCHC (31.0-37.0) g/dl RDW (11.5-14.5) % Plt Count (120.0-450.0) 10^3/uL Corrected WBC (Man) (4.5-11.0) K/mm3 Neutrophils % (Manual) (50.0-70.0) % Band Neutrophils % (0-2) % Lymphocytes % (Manual) (22.0-35.0) % Monocytes % (Manual) (1.0-6.0) % Eosinophils % (Manual) (0.0-3.0) % Metamyelocytes % % Myelocytes % % Promyelocytes % % Nucleated RBC % % Platelet Evaluation (NORMAL) Poikilocytosis (manual Anisocytosis (manual) Retic Count (0.5-1.5) % Haptoglobin (30.0-200.0) mg/dL APTT (25.1-36.5) Seconds Fibrin Degrad Products (< 10 ug/mL) pCO2 (35-45) mm/Hg pO2 (80-100) mm/Hg HCO3 (21-28) mmol/L ABG pH (7.35-7.45) ABG Total CO2 (22-28) mmol.L ABG O2 Saturation (95-98) % ABG O2 Content (15-23) ML/dl ABG Base Excess (-2.0-3.0) mmol/L ABG Hemoglobin (11.7-17.4) g/dL ABG Carboxyhemoglobin (0.5-1.5) % POC ABG HHb (Measured) (0-5) % ABG Methemoglobin (0.0-3.0) % ABG O2 Capacity (16-24) mL/dl VBG pH (7.32-7.43) VBG pCO2 (40-60) VBG HCO3 (21-28) mmol/l VBG Total CO2 (22-28) mmol.L VBG O2 Sat (Calc) (40-65) % VBG Base Excess (0.0-2.0) mmol/L VBG Potassium (3.6-5.2) mmol/L Hgb O2 Saturation (95.0-98.0) % Sodium 138 (132-148) mmol/L Chloride 102 (98-107) mmol/L Glucose (65-105) mg/dl Lactate (0.7-2.1) mmol/L FiO2 % Potassium 6.2 H* (3.6-5.0) mmol/L Carbon Dioxide 8 L (21-33) mmol/L Anion Gap 33 H (10-20) BUN 50 H (7-21) mg/dL Creatinine 3.2 H (0.7-1.2) mg/dl Est GFR ( Amer) 18 Est GFR (Non-Af Amer) 15 POC Glucose (mg/dL) 82 125 H (65-110) mg/dL Random Glucose 182 H (70-110) mg/dL Calcium 7.5 L (8.4-10.5) mg/dL Phosphorus (2.5-4.5) mg/dL Magnesium (1.7-2.2) mg/dL Total Bilirubin (0.2-1.3) mg/dL AST (14-36) U/L ALT (7-56) U/L Alkaline Phosphatase (38-126) U/L Lactate Dehydrogenase (333-699) U/L Total Protein (5.8-8.3) g/dL Albumin (3.0-4.8) g/dL Globulin gm/dL Albumin/Globulin Ratio (1.1-1.8) Venous Blood Potassium (3.6-5.2) mmol/L Heparin-induced Plt Ab (Negative) Blood Type Antibody Screen Crossmatch BBK History Checked 06/20/18 06/19/18 06/19/18 Range/Units 00:58 23:57 23:00 WBC (4.5-11.0) 10^3/ul RBC (3.5-6.1) 10^6/uL Hgb (12.0-16.0) g/dL Hct (36.0-48.0) % MCV (80.0-105.0) fl MCH (25.0-35.0) pg MCHC (31.0-37.0) g/dl RDW (11.5-14.5) % Plt Count (120.0-450.0) 10^3/uL Corrected WBC (Man) (4.5-11.0) K/mm3 Neutrophils % (Manual) (50.0-70.0) % Band Neutrophils % (0-2) % Lymphocytes % (Manual) (22.0-35.0) % Monocytes % (Manual) (1.0-6.0) % Eosinophils % (Manual) (0.0-3.0) % Metamyelocytes % % Myelocytes % % Promyelocytes % % Nucleated RBC % % Platelet Evaluation (NORMAL) Poikilocytosis (manual Anisocytosis (manual) Retic Count (0.5-1.5) % Haptoglobin (30.0-200.0) mg/dL APTT (25.1-36.5) Seconds Fibrin Degrad Products (< 10 ug/mL) pCO2 (35-45) mm/Hg pO2 (80-100) mm/Hg HCO3 (21-28) mmol/L ABG pH (7.35-7.45) ABG Total CO2 (22-28) mmol.L ABG O2 Saturation (95-98) % ABG O2 Content (15-23) ML/dl ABG Base Excess (-2.0-3.0) mmol/L ABG Hemoglobin (11.7-17.4) g/dL ABG Carboxyhemoglobin (0.5-1.5) % POC ABG HHb (Measured) (0-5) % ABG Methemoglobin (0.0-3.0) % ABG O2 Capacity (16-24) mL/dl VBG pH (7.32-7.43) VBG pCO2 (40-60) VBG HCO3 (21-28) mmol/l VBG Total CO2 (22-28) mmol.L VBG O2 Sat (Calc) (40-65) % VBG Base Excess (0.0-2.0) mmol/L VBG Potassium (3.6-5.2) mmol/L Hgb O2 Saturation (95.0-98.0) % Sodium (132-148) mmol/L Chloride (98-107) mmol/L Glucose (65-105) mg/dl Lactate (0.7-2.1) mmol/L FiO2 % Potassium (3.6-5.0) mmol/L Carbon Dioxide (21-33) mmol/L Anion Gap (10-20) BUN (7-21) mg/dL Creatinine (0.7-1.2) mg/dl Est GFR ( Amer) Est GFR (Non-Af Amer) POC Glucose (mg/dL) 34 L* 38 L* (65-110) mg/dL Random Glucose (70-110) mg/dL Calcium (8.4-10.5) mg/dL Phosphorus 11.8 H (2.5-4.5) mg/dL Magnesium 2.6 H (1.7-2.2) mg/dL Total Bilirubin (0.2-1.3) mg/dL AST (14-36) U/L ALT (7-56) U/L Alkaline Phosphatase (38-126) U/L Lactate Dehydrogenase (333-699) U/L Total Protein (5.8-8.3) g/dL Albumin (3.0-4.8) g/dL Globulin gm/dL Albumin/Globulin Ratio (1.1-1.8) Venous Blood Potassium (3.6-5.2) mmol/L Heparin-induced Plt Ab (Negative) Blood Type Antibody Screen Crossmatch BBK History Checked 06/19/18 06/19/18 06/19/18 Range/Units 21:57 21:57 21:53 WBC (4.5-11.0) 10^3/ul RBC (3.5-6.1) 10^6/uL Hgb (12.0-16.0) g/dL Hct (36.0-48.0) % MCV (80.0-105.0) fl MCH (25.0-35.0) pg MCHC (31.0-37.0) g/dl RDW (11.5-14.5) % Plt Count (120.0-450.0) 10^3/uL Corrected WBC (Man) (4.5-11.0) K/mm3 Neutrophils % (Manual) (50.0-70.0) % Band Neutrophils % (0-2) % Lymphocytes % (Manual) (22.0-35.0) % Monocytes % (Manual) (1.0-6.0) % Eosinophils % (Manual) (0.0-3.0) % Metamyelocytes % % Myelocytes % % Promyelocytes % % Nucleated RBC % % Platelet Evaluation (NORMAL) Poikilocytosis (manual Anisocytosis (manual) Retic Count (0.5-1.5) % Haptoglobin (30.0-200.0) mg/dL APTT > 400.0 H* (25.1-36.5) Seconds Fibrin Degrad Products (< 10 ug/mL) pCO2 19 L* (35-45) mm/Hg pO2 133.0 H (80-100) mm/Hg HCO3 5.5 L* (21-28) mmol/L ABG pH 7.07 L* (7.35-7.45) ABG Total CO2 6.1 L (22-28) mmol.L ABG O2 Saturation 99.0 H (95-98) % ABG O2 Content 10.9 L (15-23) ML/dl ABG Base Excess -22.7 L (-2.0-3.0) mmol/L ABG Hemoglobin 7.8 L (11.7-17.4) g/dL ABG Carboxyhemoglobin 0.8 (0.5-1.5) % POC ABG HHb (Measured) 1.0 (0-5) % ABG Methemoglobin 1.3 (0.0-3.0) % ABG O2 Capacity 11.0 L (16-24) mL/dl VBG pH (7.32-7.43) VBG pCO2 (40-60) VBG HCO3 (21-28) mmol/l VBG Total CO2 (22-28) mmol.L VBG O2 Sat (Calc) (40-65) % VBG Base Excess (0.0-2.0) mmol/L VBG Potassium (3.6-5.2) mmol/L Hgb O2 Saturation 96.9 (95.0-98.0) % Sodium 137 (132-148) mmol/L Chloride 102 (98-107) mmol/L Glucose (65-105) mg/dl Lactate (0.7-2.1) mmol/L FiO2 40.0 % Potassium 5.9 H* (3.6-5.0) mmol/L Carbon Dioxide 7 L D (21-33) mmol/L Anion Gap 34 H (10-20) BUN 49 H (7-21) mg/dL Creatinine 3.1 H (0.7-1.2) mg/dl Est GFR ( Amer) 18 Est GFR (Non-Af Amer) 15 POC Glucose (mg/dL) (65-110) mg/dL Random Glucose 122 H (70-110) mg/dL Calcium 7.8 L (8.4-10.5) mg/dL Phosphorus (2.5-4.5) mg/dL Magnesium (1.7-2.2) mg/dL Total Bilirubin (0.2-1.3) mg/dL AST (14-36) U/L ALT (7-56) U/L Alkaline Phosphatase (38-126) U/L Lactate Dehydrogenase (333-699) U/L Total Protein (5.8-8.3) g/dL Albumin (3.0-4.8) g/dL Globulin gm/dL Albumin/Globulin Ratio (1.1-1.8) Venous Blood Potassium (3.6-5.2) mmol/L Heparin-induced Plt Ab (Negative) Blood Type Antibody Screen Crossmatch BBK History Checked 06/19/18 06/19/18 06/19/18 Range/Units 20:42 20:13 20:10 WBC (4.5-11.0) 10^3/ul RBC (3.5-6.1) 10^6/uL Hgb (12.0-16.0) g/dL Hct (36.0-48.0) % MCV (80.0-105.0) fl MCH (25.0-35.0) pg MCHC (31.0-37.0) g/dl RDW (11.5-14.5) % Plt Count (120.0-450.0) 10^3/uL Corrected WBC (Man) (4.5-11.0) K/mm3 Neutrophils % (Manual) (50.0-70.0) % Band Neutrophils % (0-2) % Lymphocytes % (Manual) (22.0-35.0) % Monocytes % (Manual) (1.0-6.0) % Eosinophils % (Manual) (0.0-3.0) % Metamyelocytes % % Myelocytes % % Promyelocytes % % Nucleated RBC % % Platelet Evaluation (NORMAL) Poikilocytosis (manual Anisocytosis (manual) Retic Count (0.5-1.5) % Haptoglobin (30.0-200.0) mg/dL APTT (25.1-36.5) Seconds Fibrin Degrad Products (< 10 ug/mL) pCO2 (35-45) mm/Hg pO2 (80-100) mm/Hg HCO3 (21-28) mmol/L ABG pH (7.35-7.45) ABG Total CO2 (22-28) mmol.L ABG O2 Saturation (95-98) % ABG O2 Content (15-23) ML/dl ABG Base Excess (-2.0-3.0) mmol/L ABG Hemoglobin (11.7-17.4) g/dL ABG Carboxyhemoglobin (0.5-1.5) % POC ABG HHb (Measured) (0-5) % ABG Methemoglobin (0.0-3.0) % ABG O2 Capacity (16-24) mL/dl VBG pH (7.32-7.43) VBG pCO2 (40-60) VBG HCO3 (21-28) mmol/l VBG Total CO2 (22-28) mmol.L VBG O2 Sat (Calc) (40-65) % VBG Base Excess (0.0-2.0) mmol/L VBG Potassium (3.6-5.2) mmol/L Hgb O2 Saturation (95.0-98.0) % Sodium (132-148) mmol/L Chloride (98-107) mmol/L Glucose (65-105) mg/dl Lactate (0.7-2.1) mmol/L FiO2 % Potassium (3.6-5.0) mmol/L Carbon Dioxide (21-33) mmol/L Anion Gap (10-20) BUN (7-21) mg/dL Creatinine (0.7-1.2) mg/dl Est GFR ( Amer) Est GFR (Non-Af Amer) POC Glucose (mg/dL) 111 H 25 L* 32 L* (65-110) mg/dL Random Glucose (70-110) mg/dL Calcium (8.4-10.5) mg/dL Phosphorus (2.5-4.5) mg/dL Magnesium (1.7-2.2) mg/dL Total Bilirubin (0.2-1.3) mg/dL AST (14-36) U/L ALT (7-56) U/L Alkaline Phosphatase (38-126) U/L Lactate Dehydrogenase (333-699) U/L Total Protein (5.8-8.3) g/dL Albumin (3.0-4.8) g/dL Globulin gm/dL Albumin/Globulin Ratio (1.1-1.8) Venous Blood Potassium (3.6-5.2) mmol/L Heparin-induced Plt Ab (Negative) Blood Type Antibody Screen Crossmatch BBK History Checked 06/19/18 06/19/18 06/19/18 Range/Units 19:25 19:02 18:47 WBC (4.5-11.0) 10^3/ul RBC (3.5-6.1) 10^6/uL Hgb (12.0-16.0) g/dL Hct (36.0-48.0) % MCV (80.0-105.0) fl MCH (25.0-35.0) pg MCHC (31.0-37.0) g/dl RDW (11.5-14.5) % Plt Count (120.0-450.0) 10^3/uL Corrected WBC (Man) (4.5-11.0) K/mm3 Neutrophils % (Manual) (50.0-70.0) % Band Neutrophils % (0-2) % Lymphocytes % (Manual) (22.0-35.0) % Monocytes % (Manual) (1.0-6.0) % Eosinophils % (Manual) (0.0-3.0) % Metamyelocytes % % Myelocytes % % Promyelocytes % % Nucleated RBC % % Platelet Evaluation (NORMAL) Poikilocytosis (manual Anisocytosis (manual) Retic Count (0.5-1.5) % Haptoglobin (30.0-200.0) mg/dL APTT (25.1-36.5) Seconds Fibrin Degrad Products (< 10 ug/mL) pCO2 (35-45) mm/Hg pO2 (80-100) mm/Hg HCO3 (21-28) mmol/L ABG pH (7.35-7.45) ABG Total CO2 (22-28) mmol.L ABG O2 Saturation (95-98) % ABG O2 Content (15-23) ML/dl ABG Base Excess (-2.0-3.0) mmol/L ABG Hemoglobin (11.7-17.4) g/dL ABG Carboxyhemoglobin (0.5-1.5) % POC ABG HHb (Measured) (0-5) % ABG Methemoglobin (0.0-3.0) % ABG O2 Capacity (16-24) mL/dl VBG pH (7.32-7.43) VBG pCO2 (40-60) VBG HCO3 (21-28) mmol/l VBG Total CO2 (22-28) mmol.L VBG O2 Sat (Calc) (40-65) % VBG Base Excess (0.0-2.0) mmol/L VBG Potassium (3.6-5.2) mmol/L Hgb O2 Saturation (95.0-98.0) % Sodium 138 (132-148) mmol/L Chloride 102 (98-107) mmol/L Glucose (65-105) mg/dl Lactate (0.7-2.1) mmol/L FiO2 % Potassium 5.9 H* D (3.6-5.0) mmol/L Carbon Dioxide 11 L (21-33) mmol/L Anion Gap 31 H (10-20) BUN 49 H (7-21) mg/dL Creatinine 2.9 H (0.7-1.2) mg/dl Est GFR ( Amer) 20 Est GFR (Non-Af Amer) 16 POC Glucose (mg/dL) 62 L < 20 L* (65-110) mg/dL Random Glucose 22 L* D (70-110) mg/dL Calcium 7.9 L (8.4-10.5) mg/dL Phosphorus (2.5-4.5) mg/dL Magnesium (1.7-2.2) mg/dL Total Bilirubin (0.2-1.3) mg/dL AST (14-36) U/L ALT (7-56) U/L Alkaline Phosphatase (38-126) U/L Lactate Dehydrogenase (333-699) U/L Total Protein (5.8-8.3) g/dL Albumin (3.0-4.8) g/dL Globulin gm/dL Albumin/Globulin Ratio (1.1-1.8) Venous Blood Potassium (3.6-5.2) mmol/L Heparin-induced Plt Ab (Negative) Blood Type Antibody Screen Crossmatch BBK History Checked 06/19/18 06/19/18 06/19/18 Range/Units 18:36 17:18 16:30 WBC (4.5-11.0) 10^3/ul RBC (3.5-6.1) 10^6/uL Hgb (12.0-16.0) g/dL Hct (36.0-48.0) % MCV (80.0-105.0) fl MCH (25.0-35.0) pg MCHC (31.0-37.0) g/dl RDW (11.5-14.5) % Plt Count (120.0-450.0) 10^3/uL Corrected WBC (Man) (4.5-11.0) K/mm3 Neutrophils % (Manual) (50.0-70.0) % Band Neutrophils % (0-2) % Lymphocytes % (Manual) (22.0-35.0) % Monocytes % (Manual) (1.0-6.0) % Eosinophils % (Manual) (0.0-3.0) % Metamyelocytes % % Myelocytes % % Promyelocytes % % Nucleated RBC % % Platelet Evaluation (NORMAL) Poikilocytosis (manual Anisocytosis (manual) Retic Count (0.5-1.5) % Haptoglobin (30.0-200.0) mg/dL APTT (25.1-36.5) Seconds Fibrin Degrad Products (< 10 ug/mL) pCO2 13 L* (35-45) mm/Hg pO2 89 H 154.0 H (80-100) mm/Hg HCO3 6.0 L* (21-28) mmol/L ABG pH 7.27 L (7.35-7.45) ABG Total CO2 6.4 L (22-28) mmol.L ABG O2 Saturation 100.0 H (95-98) % ABG O2 Content 11.7 L (15-23) ML/dl ABG Base Excess -18.9 L (-2.0-3.0) mmol/L ABG Hemoglobin 8.3 L (11.7-17.4) g/dL ABG Carboxyhemoglobin 1.3 (0.5-1.5) % POC ABG HHb (Measured) 0 (0-5) % ABG Methemoglobin 1.2 (0.0-3.0) % ABG O2 Capacity 11.7 L (16-24) mL/dl VBG pH 7.12 L* (7.32-7.43) VBG pCO2 30.0 L (40-60) VBG HCO3 9.8 L (21-28) mmol/l VBG Total CO2 10.7 L (22-28) mmol.L VBG O2 Sat (Calc) 98.8 H (40-65) % VBG Base Excess -18.3 L (0.0-2.0) mmol/L VBG Potassium 6.1 H (3.6-5.2) mmol/L Hgb O2 Saturation 97.4 (95.0-98.0) % Sodium 136.0 (132-148) mmol/L Chloride 101.0 (98-107) mmol/L Glucose 18 L* D (65-105) mg/dl Lactate 17.4 H* (0.7-2.1) mmol/L FiO2 21.0 40.0 % Potassium (3.6-5.0) mmol/L Carbon Dioxide (21-33) mmol/L Anion Gap (10-20) BUN (7-21) mg/dL Creatinine (0.7-1.2) mg/dl Est GFR ( Amer) Est GFR (Non-Af Amer) POC Glucose (mg/dL) (65-110) mg/dL Random Glucose (70-110) mg/dL Calcium (8.4-10.5) mg/dL Phosphorus (2.5-4.5) mg/dL Magnesium (1.7-2.2) mg/dL Total Bilirubin (0.2-1.3) mg/dL AST (14-36) U/L ALT (7-56) U/L Alkaline Phosphatase (38-126) U/L Lactate Dehydrogenase [id number] H (333-699) U/L Total Protein (5.8-8.3) g/dL Albumin (3.0-4.8) g/dL Globulin gm/dL Albumin/Globulin Ratio (1.1-1.8) Venous Blood Potassium 6.1 H (3.6-5.2) mmol/L Heparin-induced Plt Ab (Negative) Blood Type Antibody Screen Crossmatch BBK History Checked 06/19/18 06/19/18 06/19/18 Range/Units 16:30 16:30 16:30 WBC (4.5-11.0) 10^3/ul RBC (3.5-6.1) 10^6/uL Hgb (12.0-16.0) g/dL Hct (36.0-48.0) % MCV (80.0-105.0) fl MCH (25.0-35.0) pg MCHC (31.0-37.0) g/dl RDW (11.5-14.5) % Plt Count (120.0-450.0) 10^3/uL Corrected WBC (Man) (4.5-11.0) K/mm3 Neutrophils % (Manual) (50.0-70.0) % Band Neutrophils % (0-2) % Lymphocytes % (Manual) (22.0-35.0) % Monocytes % (Manual) (1.0-6.0) % Eosinophils % (Manual) (0.0-3.0) % Metamyelocytes % % Myelocytes % % Promyelocytes % % Nucleated RBC % % Platelet Evaluation (NORMAL) Poikilocytosis (manual Anisocytosis (manual) Retic Count 3.80 H (0.5-1.5) % Haptoglobin 119.2 (30.0-200.0) mg/dL APTT (25.1-36.5) Seconds Fibrin Degrad Products >40 ug/ml (< 10 ug/mL) pCO2 (35-45) mm/Hg pO2 (80-100) mm/Hg HCO3 (21-28) mmol/L ABG pH (7.35-7.45) ABG Total CO2 (22-28) mmol.L ABG O2 Saturation (95-98) % ABG O2 Content (15-23) ML/dl ABG Base Excess (-2.0-3.0) mmol/L ABG Hemoglobin (11.7-17.4) g/dL ABG Carboxyhemoglobin (0.5-1.5) % POC ABG HHb (Measured) (0-5) % ABG Methemoglobin (0.0-3.0) % ABG O2 Capacity (16-24) mL/dl VBG pH (7.32-7.43) VBG pCO2 (40-60) VBG HCO3 (21-28) mmol/l VBG Total CO2 (22-28) mmol.L VBG O2 Sat (Calc) (40-65) % VBG Base Excess (0.0-2.0) mmol/L VBG Potassium (3.6-5.2) mmol/L Hgb O2 Saturation (95.0-98.0) % Sodium (132-148) mmol/L Chloride (98-107) mmol/L Glucose (65-105) mg/dl Lactate (0.7-2.1) mmol/L FiO2 % Potassium (3.6-5.0) mmol/L Carbon Dioxide (21-33) mmol/L Anion Gap (10-20) BUN (7-21) mg/dL Creatinine (0.7-1.2) mg/dl Est GFR ( Amer) Est GFR (Non-Af Amer) POC Glucose (mg/dL) (65-110) mg/dL Random Glucose (70-110) mg/dL Calcium (8.4-10.5) mg/dL Phosphorus (2.5-4.5) mg/dL Magnesium (1.7-2.2) mg/dL Total Bilirubin (0.2-1.3) mg/dL AST (14-36) U/L ALT (7-56) U/L Alkaline Phosphatase (38-126) U/L Lactate Dehydrogenase (333-699) U/L Total Protein (5.8-8.3) g/dL Albumin (3.0-4.8) g/dL Globulin gm/dL Albumin/Globulin Ratio (1.1-1.8) Venous Blood Potassium (3.6-5.2) mmol/L Heparin-induced Plt Ab (Negative) Blood Type Antibody Screen Crossmatch BBK History Checked 06/17/18 06/17/18 Range/Units 16:12 08:25 WBC (4.5-11.0) 10^3/ul RBC (3.5-6.1) 10^6/uL Hgb (12.0-16.0) g/dL Hct (36.0-48.0) % MCV (80.0-105.0) fl MCH (25.0-35.0) pg MCHC (31.0-37.0) g/dl RDW (11.5-14.5) % Plt Count (120.0-450.0) 10^3/uL Corrected WBC (Man) (4.5-11.0) K/mm3 Neutrophils % (Manual) (50.0-70.0) % Band Neutrophils % (0-2) % Lymphocytes % (Manual) (22.0-35.0) % Monocytes % (Manual) (1.0-6.0) % Eosinophils % (Manual) (0.0-3.0) % Metamyelocytes % % Myelocytes % % Promyelocytes % % Nucleated RBC % % Platelet Evaluation (NORMAL) Poikilocytosis (manual Anisocytosis (manual) Retic Count (0.5-1.5) % Haptoglobin (30.0-200.0) mg/dL APTT (25.1-36.5) Seconds Fibrin Degrad Products (< 10 ug/mL) pCO2 (35-45) mm/Hg pO2 (80-100) mm/Hg HCO3 (21-28) mmol/L ABG pH (7.35-7.45) ABG Total CO2 (22-28) mmol.L ABG O2 Saturation (95-98) % ABG O2 Content (15-23) ML/dl ABG Base Excess (-2.0-3.0) mmol/L ABG Hemoglobin (11.7-17.4) g/dL ABG Carboxyhemoglobin (0.5-1.5) % POC ABG HHb (Measured) (0-5) % ABG Methemoglobin (0.0-3.0) % ABG O2 Capacity (16-24) mL/dl VBG pH (7.32-7.43) VBG pCO2 (40-60) VBG HCO3 (21-28) mmol/l VBG Total CO2 (22-28) mmol.L VBG O2 Sat (Calc) (40-65) % VBG Base Excess (0.0-2.0) mmol/L VBG Potassium (3.6-5.2) mmol/L Hgb O2 Saturation (95.0-98.0) % Sodium (132-148) mmol/L Chloride (98-107) mmol/L Glucose (65-105) mg/dl Lactate (0.7-2.1) mmol/L FiO2 % Potassium (3.6-5.0) mmol/L Carbon Dioxide (21-33) mmol/L Anion Gap (10-20) BUN (7-21) mg/dL Creatinine (0.7-1.2) mg/dl Est GFR ( Amer) Est GFR (Non-Af Amer) POC Glucose (mg/dL) (65-110) mg/dL Random Glucose (70-110) mg/dL Calcium (8.4-10.5) mg/dL Phosphorus (2.5-4.5) mg/dL Magnesium (1.7-2.2) mg/dL Total Bilirubin (0.2-1.3) mg/dL AST (14-36) U/L ALT (7-56) U/L Alkaline Phosphatase (38-126) U/L Lactate Dehydrogenase (333-699) U/L Total Protein (5.8-8.3) g/dL Albumin (3.0-4.8) g/dL Globulin gm/dL Albumin/Globulin Ratio (1.1-1.8) Venous Blood Potassium (3.6-5.2) mmol/L Heparin-induced Plt Ab Negative (Negative) Blood Type Antibody Screen Crossmatch See Detail BBK History Checked Laboratory Results - last 24 hr 06/17/18 06/17/18 06/19/18 08:25 16:12 16:30 WBC RBC Hgb Hct MCV MCH MCHC RDW Plt Count Corrected WBC (Man) Neutrophils % (Manual) Band Neutrophils % Lymphocytes % (Manual) Monocytes % (Manual) Eosinophils % (Manual) Metamyelocytes % Myelocytes % Promyelocytes % Nucleated RBC % Platelet Evaluation Poikilocytosis (manual Anisocytosis (manual) Retic Count Haptoglobin 119.2 APTT Fibrin Degrad Products pCO2 pO2 HCO3 ABG pH ABG Total CO2 ABG O2 Saturation ABG O2 Content ABG Base Excess ABG Hemoglobin ABG Carboxyhemoglobin POC ABG HHb (Measured) ABG Methemoglobin ABG O2 Capacity VBG pH VBG pCO2 VBG HCO3 VBG Total CO2 VBG O2 Sat (Calc) VBG Base Excess VBG Potassium Hgb O2 Saturation Sodium Chloride Glucose Lactate FiO2 Potassium Carbon Dioxide Anion Gap BUN Creatinine Est GFR ( Amer) Est GFR (Non-Af Amer) POC Glucose (mg/dL) Random Glucose Calcium Phosphorus Magnesium Total Bilirubin AST ALT Alkaline Phosphatase Lactate Dehydrogenase Total Protein Albumin Globulin Albumin/Globulin Ratio Venous Blood Potassium Heparin-induced Plt Ab Negative Blood Type Antibody Screen Crossmatch See Detail BBK History Checked 06/19/18 06/19/18 06/19/18 16:30 16:30 16:30 WBC RBC Hgb Hct MCV MCH MCHC RDW Plt Count Corrected WBC (Man) Neutrophils % (Manual) Band Neutrophils % Lymphocytes % (Manual) Monocytes % (Manual) Eosinophils % (Manual) Metamyelocytes % Myelocytes % Promyelocytes % Nucleated RBC % Platelet Evaluation Poikilocytosis (manual Anisocytosis (manual) Retic Count 3.80 H Haptoglobin APTT Fibrin Degrad Products >40 ug/ml pCO2 pO2 HCO3 ABG pH ABG Total CO2 ABG O2 Saturation ABG O2 Content ABG Base Excess ABG Hemoglobin ABG Carboxyhemoglobin POC ABG HHb (Measured) ABG Methemoglobin ABG O2 Capacity VBG pH VBG pCO2 VBG HCO3 VBG Total CO2 VBG O2 Sat (Calc) VBG Base Excess VBG Potassium Hgb O2 Saturation Sodium Chloride Glucose Lactate FiO2 Potassium Carbon Dioxide Anion Gap BUN Creatinine Est GFR ( Amer) Est GFR (Non-Af Amer) POC Glucose (mg/dL) Random Glucose Calcium Phosphorus Magnesium Total Bilirubin AST ALT Alkaline Phosphatase Lactate Dehydrogenase 77868 H Total Protein Albumin Globulin Albumin/Globulin Ratio Venous Blood Potassium Heparin-induced Plt Ab Blood Type Antibody Screen Crossmatch BBK History Checked 06/19/1818 18 17:18 18:36 18:47 WBC RBC Hgb Hct MCV MCH MCHC RDW Plt Count Corrected WBC (Man) Neutrophils % (Manual) Band Neutrophils % Lymphocytes % (Manual) Monocytes % (Manual) Eosinophils % (Manual) Metamyelocytes % Myelocytes % Promyelocytes % Nucleated RBC % Platelet Evaluation Poikilocytosis (manual Anisocytosis (manual) Retic Count Haptoglobin APTT Fibrin Degrad Products pCO2 13 L* pO2 154.0 H 89 H HCO3 6.0 L* ABG pH 7.27 L ABG Total CO2 6.4 L ABG O2 Saturation 100.0 H ABG O2 Content 11.7 L ABG Base Excess -18.9 L ABG Hemoglobin 8.3 L ABG Carboxyhemoglobin 1.3 POC ABG HHb (Measured) 0 ABG Methemoglobin 1.2 ABG O2 Capacity 11.7 L VBG pH 7.12 L* VBG pCO2 30.0 L VBG HCO3 9.8 L VBG Total CO2 10.7 L VBG O2 Sat (Calc) 98.8 H VBG Base Excess -18.3 L VBG Potassium 6.1 H Hgb O2 Saturation 97.4 Sodium 136.0 138 Chloride 101.0 102 Glucose 18 L* D Lactate 17.4 H* FiO2 40.0 21.0 Potassium 5.9 H* D Carbon Dioxide 11 L Anion Gap 31 H BUN 49 H Creatinine 2.9 H Est GFR ( Amer) 20 Est GFR (Non-Af Amer) 16 POC Glucose (mg/dL) Random Glucose 22 L* D Calcium 7.9 L Phosphorus Magnesium Total Bilirubin AST ALT Alkaline Phosphatase Lactate Dehydrogenase Total Protein Albumin Globulin Albumin/Globulin Ratio Venous Blood Potassium 6.1 H Heparin-induced Plt Ab Blood Type Antibody Screen Crossmatch BBK History Checked 06/19/1818 06/19/18 19:02 19:25 20:10 WBC RBC Hgb Hct MCV MCH MCHC RDW Plt Count Corrected WBC (Man) Neutrophils % (Manual) Band Neutrophils % Lymphocytes % (Manual) Monocytes % (Manual) Eosinophils % (Manual) Metamyelocytes % Myelocytes % Promyelocytes % Nucleated RBC % Platelet Evaluation Poikilocytosis (manual Anisocytosis (manual) Retic Count Haptoglobin APTT Fibrin Degrad Products pCO2 pO2 HCO3 ABG pH ABG Total CO2 ABG O2 Saturation ABG O2 Content ABG Base Excess ABG Hemoglobin ABG Carboxyhemoglobin POC ABG HHb (Measured) ABG Methemoglobin ABG O2 Capacity VBG pH VBG pCO2 VBG HCO3 VBG Total CO2 VBG O2 Sat (Calc) VBG Base Excess VBG Potassium Hgb O2 Saturation Sodium Chloride Glucose Lactate FiO2 Potassium Carbon Dioxide Anion Gap BUN Creatinine Est GFR ( Amer) Est GFR (Non-Af Amer) POC Glucose (mg/dL) < 20 L* 62 L 32 L* Random Glucose Calcium Phosphorus Magnesium Total Bilirubin AST ALT Alkaline Phosphatase Lactate Dehydrogenase Total Protein Albumin Globulin Albumin/Globulin Ratio Venous Blood Potassium Heparin-induced Plt Ab Blood Type Antibody Screen Crossmatch BBK History Checked 06/19/18 06/19/18 06/19/18 20:13 20:42 21:53 WBC RBC Hgb Hct MCV MCH MCHC RDW Plt Count Corrected WBC (Man) Neutrophils % (Manual) Band Neutrophils % Lymphocytes % (Manual) Monocytes % (Manual) Eosinophils % (Manual) Metamyelocytes % Myelocytes % Promyelocytes % Nucleated RBC % Platelet Evaluation Poikilocytosis (manual Anisocytosis (manual) Retic Count Haptoglobin APTT Fibrin Degrad Products pCO2 19 L* pO2 133.0 H HCO3 5.5 L* ABG pH 7.07 L* ABG Total CO2 6.1 L ABG O2 Saturation 99.0 H ABG O2 Content 10.9 L ABG Base Excess -22.7 L ABG Hemoglobin 7.8 L ABG Carboxyhemoglobin 0.8 POC ABG HHb (Measured) 1.0 ABG Methemoglobin 1.3 ABG O2 Capacity 11.0 L VBG pH VBG pCO2 VBG HCO3 VBG Total CO2 VBG O2 Sat (Calc) VBG Base Excess VBG Potassium Hgb O2 Saturation 96.9 Sodium Chloride Glucose Lactate FiO2 40.0 Potassium Carbon Dioxide Anion Gap BUN Creatinine Est GFR ( Amer) Est GFR (Non-Af Amer) POC Glucose (mg/dL) 25 L* 111 H Random Glucose Calcium Phosphorus Magnesium Total Bilirubin AST ALT Alkaline Phosphatase Lactate Dehydrogenase Total Protein Albumin Globulin Albumin/Globulin Ratio Venous Blood Potassium Heparin-induced Plt Ab Blood Type Antibody Screen Crossmatch BBK History Checked 06/19/18 06/19/18 06/19/18 21:57 21:57 23:00 WBC RBC Hgb Hct MCV MCH MCHC RDW Plt Count Corrected WBC (Man) Neutrophils % (Manual) Band Neutrophils % Lymphocytes % (Manual) Monocytes % (Manual) Eosinophils % (Manual) Metamyelocytes % Myelocytes % Promyelocytes % Nucleated RBC % Platelet Evaluation Poikilocytosis (manual Anisocytosis (manual) Retic Count Haptoglobin APTT > 400.0 H* Fibrin Degrad Products pCO2 pO2 HCO3 ABG pH ABG Total CO2 ABG O2 Saturation ABG O2 Content ABG Base Excess ABG Hemoglobin ABG Carboxyhemoglobin POC ABG HHb (Measured) ABG Methemoglobin ABG O2 Capacity VBG pH VBG pCO2 VBG HCO3 VBG Total CO2 VBG O2 Sat (Calc) VBG Base Excess VBG Potassium Hgb O2 Saturation Sodium 137 Chloride 102 Glucose Lactate FiO2 Potassium 5.9 H* Carbon Dioxide 7 L D Anion Gap 34 H BUN 49 H Creatinine 3.1 H Est GFR ( Amer) 18 Est GFR (Non-Af Amer) 15 POC Glucose (mg/dL) Random Glucose 122 H Calcium 7.8 L Phosphorus 11.8 H Magnesium 2.6 H Total Bilirubin AST ALT Alkaline Phosphatase Lactate Dehydrogenase Total Protein Albumin Globulin Albumin/Globulin Ratio Venous Blood Potassium Heparin-induced Plt Ab Blood Type Antibody Screen Crossmatch BBK History Checked 06/19/18 06/20/18 06/20/18 23:57 00:58 01:49 WBC RBC Hgb Hct MCV MCH MCHC RDW Plt Count Corrected WBC (Man) Neutrophils % (Manual) Band Neutrophils % Lymphocytes % (Manual) Monocytes % (Manual) Eosinophils % (Manual) Metamyelocytes % Myelocytes % Promyelocytes % Nucleated RBC % Platelet Evaluation Poikilocytosis (manual Anisocytosis (manual) Retic Count Haptoglobin APTT Fibrin Degrad Products pCO2 pO2 HCO3 ABG pH ABG Total CO2 ABG O2 Saturation ABG O2 Content ABG Base Excess ABG Hemoglobin ABG Carboxyhemoglobin POC ABG HHb (Measured) ABG Methemoglobin ABG O2 Capacity VBG pH VBG pCO2 VBG HCO3 VBG Total CO2 VBG O2 Sat (Calc) VBG Base Excess VBG Potassium Hgb O2 Saturation Sodium Chloride Glucose Lactate FiO2 Potassium Carbon Dioxide Anion Gap BUN Creatinine Est GFR ( Amer) Est GFR (Non-Af Amer) POC Glucose (mg/dL) 38 L* 34 L* 125 H Random Glucose Calcium Phosphorus Magnesium Total Bilirubin AST ALT Alkaline Phosphatase Lactate Dehydrogenase Total Protein Albumin Globulin Albumin/Globulin Ratio Venous Blood Potassium Heparin-induced Plt Ab Blood Type Antibody Screen Crossmatch BBK History Checked 06/20/18 06/20/18 06/20/18 02:00 03:27 04:25 WBC RBC Hgb Hct MCV MCH MCHC RDW Plt Count Corrected WBC (Man) Neutrophils % (Manual) Band Neutrophils % Lymphocytes % (Manual) Monocytes % (Manual) Eosinophils % (Manual) Metamyelocytes % Myelocytes % Promyelocytes % Nucleated RBC % Platelet Evaluation Poikilocytosis (manual Anisocytosis (manual) Retic Count Haptoglobin APTT Fibrin Degrad Products pCO2 pO2 HCO3 ABG pH ABG Total CO2 ABG O2 Saturation ABG O2 Content ABG Base Excess ABG Hemoglobin ABG Carboxyhemoglobin POC ABG HHb (Measured) ABG Methemoglobin ABG O2 Capacity VBG pH VBG pCO2 VBG HCO3 VBG Total CO2 VBG O2 Sat (Calc) VBG Base Excess VBG Potassium Hgb O2 Saturation Sodium 138 Chloride 102 Glucose Lactate FiO2 Potassium 6.2 H* Carbon Dioxide 8 L Anion Gap 33 H BUN 50 H Creatinine 3.2 H Est GFR ( Amer) 18 Est GFR (Non-Af Amer) 15 POC Glucose (mg/dL) 82 145 H Random Glucose 182 H Calcium 7.5 L Phosphorus Magnesium Total Bilirubin AST ALT Alkaline Phosphatase Lactate Dehydrogenase Total Protein Albumin Globulin Albumin/Globulin Ratio Venous Blood Potassium Heparin-induced Plt Ab Blood Type Antibody Screen Crossmatch BBK History Checked 06/20/18 06/20/18 06/20/18 06:00 06:00 06:00 WBC 50.3 H* RBC 2.42 L Hgb 6.2 L* D Hct 21.9 L MCV 90.5 D MCH 25.6 MCHC 28.3 L RDW 23.6 H Plt Count 24 L* Corrected WBC (Man) 19.6 H Neutrophils % (Manual) 75 H Band Neutrophils % 4 H Lymphocytes % (Manual) 10 L Monocytes % (Manual) 3 Eosinophils % (Manual) 1 Metamyelocytes % 2 Myelocytes % 3 Promyelocytes % 2 Nucleated RBC % 157 Platelet Evaluation Low Poikilocytosis (manual Slight Anisocytosis (manual) Slight Retic Count Haptoglobin APTT > 400.0 H* Fibrin Degrad Products pCO2 pO2 HCO3 ABG pH ABG Total CO2 ABG O2 Saturation ABG O2 Content ABG Base Excess ABG Hemoglobin ABG Carboxyhemoglobin POC ABG HHb (Measured) ABG Methemoglobin ABG O2 Capacity VBG pH VBG pCO2 VBG HCO3 VBG Total CO2 VBG O2 Sat (Calc) VBG Base Excess VBG Potassium Hgb O2 Saturation Sodium 138 Chloride 103 Glucose Lactate FiO2 Potassium 6.6 H* Carbon Dioxide 6 L D Anion Gap 36 H BUN 48 H Creatinine 3.4 H Est GFR ( Amer) 17 Est GFR (Non-Af Amer) 14 POC Glucose (mg/dL) Random Glucose 156 H Calcium 7.4 L Phosphorus 14.4 H Magnesium 2.7 H Total Bilirubin 8.8 H AST 65660 H ALT 929 H Alkaline Phosphatase 390 H D Lactate Dehydrogenase Total Protein 3.6 L Albumin 1.7 L Globulin 1.9 Albumin/Globulin Ratio 0.9 L Venous Blood Potassium Heparin-induced Plt Ab Blood Type Antibody Screen Crossmatch BBK History Checked 06/20/18 06/20/18 06/20/18 06:34 06:38 07:42 WBC RBC Hgb Hct MCV MCH MCHC RDW Plt Count Corrected WBC (Man) Neutrophils % (Manual) Band Neutrophils % Lymphocytes % (Manual) Monocytes % (Manual) Eosinophils % (Manual) Metamyelocytes % Myelocytes % Promyelocytes % Nucleated RBC % Platelet Evaluation Poikilocytosis (manual Anisocytosis (manual) Retic Count Haptoglobin APTT Fibrin Degrad Products pCO2 26 L pO2 120.0 H HCO3 4.8 L* ABG pH 6.87 L* ABG Total CO2 5.6 L ABG O2 Saturation 98.7 H ABG O2 Content 8.9 L ABG Base Excess -26.3 L ABG Hemoglobin 6.4 L ABG Carboxyhemoglobin 1.0 POC ABG HHb (Measured) 1.3 ABG Methemoglobin 1.6 ABG O2 Capacity 9.0 L VBG pH VBG pCO2 VBG HCO3 VBG Total CO2 VBG O2 Sat (Calc) VBG Base Excess VBG Potassium Hgb O2 Saturation 96.2 Sodium Chloride Glucose Lactate FiO2 40.0 Potassium Carbon Dioxide Anion Gap BUN Creatinine Est GFR ( Amer) Est GFR (Non-Af Amer) POC Glucose (mg/dL) 76 74 Random Glucose Calcium Phosphorus Magnesium Total Bilirubin AST ALT Alkaline Phosphatase Lactate Dehydrogenase Total Protein Albumin Globulin Albumin/Globulin Ratio Venous Blood Potassium Heparin-induced Plt Ab Blood Type Antibody Screen Crossmatch BBK History Checked 06/20/18 06/20/18 08:30 08:55 WBC RBC Hgb Hct MCV MCH MCHC RDW Plt Count Corrected WBC (Man) Neutrophils % (Manual) Band Neutrophils % Lymphocytes % (Manual) Monocytes % (Manual) Eosinophils % (Manual) Metamyelocytes % Myelocytes % Promyelocytes % Nucleated RBC % Platelet Evaluation Poikilocytosis (manual Anisocytosis (manual) Retic Count Haptoglobin APTT Fibrin Degrad Products pCO2 pO2 HCO3 ABG pH ABG Total CO2 ABG O2 Saturation ABG O2 Content ABG Base Excess ABG Hemoglobin ABG Carboxyhemoglobin POC ABG HHb (Measured) ABG Methemoglobin ABG O2 Capacity VBG pH VBG pCO2 VBG HCO3 VBG Total CO2 VBG O2 Sat (Calc) VBG Base Excess VBG Potassium Hgb O2 Saturation Sodium Chloride Glucose Lactate FiO2 Potassium Carbon Dioxide Anion Gap BUN Creatinine Est GFR ( Amer) Est GFR (Non-Af Amer) POC Glucose (mg/dL) 73 Random Glucose Calcium Phosphorus Magnesium Total Bilirubin AST ALT Alkaline Phosphatase Lactate Dehydrogenase Total Protein Albumin Globulin Albumin/Globulin Ratio Venous Blood Potassium Heparin-induced Plt Ab Blood Type O POSITIVE Antibody Screen Negative Crossmatch See Detail BBK History Checked Patient has bt EKG/Cardiology Studies: Cardiology / EKG Studies 06/20/18 02:53 ELECTROCARDIOGRAM Stat Comment: Reason For Exam: hyperkalemia Critical Care Progress Note - Nutrition Nutrition: Nutrition Category Date Time Status NPO Diet [DIET] Diets 06/16/18 Lunch Ordered Addendum Addendum: 06/20/18 14:28 ICU Attending Addendum: Patient seen and examined. Case reviewed on round with housestaff. Agree with resident note above with the following additions/exceptions: Yesterday evening patient was doing worse. Becoming more acidemic and worsening multi organ failure including shock liver, thrombocytopenia and likely DIC type reaction. I frankly told Leydi's son and daughter that she was dying. We cont to support her throughout the night and this morning, family declared the would not want us to do CPR on her which i feel is reasonable given it would be a futile effort. Pal care on board, after further discussion with family, agreed making her comfortable would be consistent with her wishes. Extubated to comfort. All interventions stopped other than comfort measures. Tim Paulson MD Payroll Human Resources Assistant
[2018-06-20 12:17] VITALS: PULSE 58; TEMP 96.1
[2018-06-20 12:18] VITALS: BP 0/0
--- NOTE | 2018-06-20 13:33 | PN ---
DATE: 06/20/2018 REASON FOR CONSULTATION AND FOLLOWUP: Shortness of breath, hypotension, intubated, on dialysis, low-grade fever. Dialysis started for 15 minutes, but the patient dropped the blood pressure, could not be continued. Family made the DNR. SUBJECTIVE: The patient remains on the vent on Levophed drip. PHYSICAL EXAMINATION: VITAL SIGNS: Temperature of 98, heart rate 75, blood pressure 110/80. HEENT: PERRLA. Extraocular muscles intact. NECK: Supple. No carotid bruits or thyromegaly. CHEST: Clear to auscultation. HEART: S1 and S2 regular. ABDOMEN: Soft. EXTREMITIES: Clubbing and cyanosis, negative. LABORATORY DATA: Blood workup as follows: WBC 50.3, hemoglobin 6.2, hematocrit 21.9, platelet count 24. Chemistry shows sodium 138, potassium 6.6, chloride 103, carbon dioxide 6, anion gap of 36, BUN 48, creatinine 3.4. AST 20,592, ALT 929. IMPRESSION: A 62-year-old female with a past medical history significant for breast cancer with metastasis; intubated; hypotension; sepsis, possible septic shock; end-stage renal disease on dialysis, could not tolerate dialysis because of hypotension; morbid obesity; gross fluid overload; multiorgan dysfunction. RECOMMENDATION: Continue supportive care. Overall, the patient's condition is critical. Prognosis is guarded. Family made the DNR. Dee Mar MD
--- NOTE | 2018-06-20 13:39 | CP.PCM.PRO ---
<Mariel Cid - Last Filed: 06/20/18 14:23> Pronouncement of Note - Clinical Findings Physical Exam: No Response Verbal/Painful Stimuli, Absent Peripheral Pulses{ Carotid & Femoral}, Absent Heart & Breath Sounds, No Pupillary Light Reflex, No Corneal Reflex, Pupils Fixed & Dilated, Absence of Vital Signs - Pronouncement Time Time of Pronouncement of : 12:01 - Notifications Pronouncement Notifications: Family Notified, Atending Notified Behavior Analyst Notified: No - Autopsy Autopsy Requested: No - [place] [id number] <Tim Paulson - Last Filed: 06/20/18 14:37> Addendum Addendum: 06/20/18 14:34 ICU Attending Addendum: Called to see patient for unresponsiveness with housestaff. On exam the patient did not respond to verbal or physical stimuli. Absent heart and breath sounds Absent peripheral pulses. Pupils are fixed and dilated. Patient pronounced at 1201pm. Dr. Suggs service paged to notify. Next of kin/family at bedside. Tim Paulson MD 06/20/18 14:37
--- NOTE | 2018-06-20 13:51 | CARD ---
APPROVED REPORT Date of service: 06/20/2018 EKG Measurement Heart [id number] <Conclusion> Normal sinus rhythm Low voltage QRS Cannot rule out Anterior infarct, age undetermined Abnormal ECG
--- NOTE | 2018-06-20 18:47 | PN ---
DATE: 06/20/2018 SUBJECTIVE: Patient is seen earlier this morning in 129, bed 2. Remain on vent, doing poorly. Continues to deteriorate. PHYSICAL EXAMINATION: VITAL SIGNS: Temperature is 96, blood pressure is 90/20, heart rate of 50, respiratory rate on a vent. HEENT: Unremarkable. NECK: Supple. LUNGS: Decreased breath sounds. HEART: Normal S1 and S2. ABDOMEN: Soft. LABORATORY EXAMINATION: Reviewed and white count of 50,000, hemoglobin of 6. Chemistries are noted. ASSESSMENT AND PLAN: A 62-year-old female seen earlier this morning in the intensive care unit, doing quite poorly, intubated on the ventilator with respiratory failure, severe sepsis, renal failure, hemodialysis, [id number] renal failure, respiratory failure, intubated on the ventilator with bilateral healthcare-associated pneumonia, urinary tract infection, hypertension, depression, breast cancer with metastasis status post chemotherapy and radiation. Overall prognosis is quire poor. Blake Dias MD
--- NOTE | 2018-06-21 08:13 | PN ---
HISTORY OF PRESENT ILLNESS: The patient is 62 years old, seen and examined, lying in bed, deeply jaundiced, minimally responsive, still on vent. Family made her DNR. They will ask for terminal extubation later on today. I spoke to the patient's daughter, Emani who is by the bedside. PHYSICAL EXAMINATION: GENERAL: She is unresponsive, on vent. VITAL SIGNS: Temperature 96.1, pulse 58, respirations 20, and blood pressure 91/24. LUNGS: Bilateral poor respiratory effort. HEART: S1, S2 audible. ABDOMEN: Obese. NEUROLOGICAL: She is unresponsive. She has nasogastric tube. She has an A-line also. LABORATORY DATA: Today's labs: WBC is 15.3, hemoglobin 6.2, hematocrit 21.9, and platelets 24. Chemistry: Sodium 138, potassium is 6.6, chloride 103, CO2 of 6. BUN 48, creatinine 3.4. Blood sugar of 156. Calcium 7.4, phosphorus 14. Total bili 8.8, her AST is 20,592, ALT 929, alk phos is 390. Albumin is 1.7. ASSESSMENT: 1. Metastatic breast cancer. 2. Liver failure. 3. Renal failure. 4. Leukocytosis with anemia and thrombocytopenia. 5. Respiratory failure. PLAN: So at this point, the patient is gravely ill, very poor prognosis, family made her DNR, and will be terminally extubated later on today. Jessica Flores MD
[2018-06-21 23:59] LABS: BCR-ABL SOURCE NOT GIVEN; P190 BCR-ABL1 NOT DETECTED; P210 BCR-ABL1 NOT DETECTED
== END 2018-06-20 12:01 | DRG 871 ==
LOC: ED 14:05 → ERH 16:38 → CCU 19:58 → 5RNO 06-08 14:14 → 2RNO 06-09 16:08 → CCU 06-11 14:27
PROVIDERS: ADMIT Internal Medicine; ATTEND Internal Medicine
PROC: 30233N1 Transfusion of Nonautologous Red Blood Cells into Peripheral Vein, Percutaneous Approach (ICD-10-PCS; 2018-06-09)
PROC: 5A1935Z Respiratory Ventilation, Less than 24 Consecutive Hours (ICD-10-PCS; 2018-06-10)
PROC: 0BH17EZ Insertion of Endotracheal Airway into Trachea, Via Natural or Artificial Opening (ICD-10-PCS; 2018-06-10)
PROC: 02H633Z Insertion of Infusion Device into Right Atrium, Percutaneous Approach (ICD-10-PCS; 2018-06-12)
PROC: B544ZZA Ultrasonography of Left Jugular Veins, Guidance (ICD-10-PCS; 2018-06-12)
PROC: 3E033XZ Introduction of Vasopressor into Peripheral Vein, Percutaneous Approach (ICD-10-PCS; 2018-06-12)
PROC: 5A1D70Z Performance of Urinary Filtration, Intermittent, Less than 6 Hours Per Day (ICD-10-PCS; 2018-06-12)
PROC: 06HN33Z Insertion of Infusion Device into Left Femoral Vein, Percutaneous Approach (ICD-10-PCS; 2018-06-13)
PROC: B54CZZA Ultrasonography of Left Lower Extremity Veins, Guidance (ICD-10-PCS; 2018-06-13)
PROC: 5A1D70Z Performance of Urinary Filtration, Intermittent, Less than 6 Hours Per Day (ICD-10-PCS; 2018-06-13)
PROC: 5A1D70Z Performance of Urinary Filtration, Intermittent, Less than 6 Hours Per Day (ICD-10-PCS; 2018-06-14)
PROC: 5A1D70Z Performance of Urinary Filtration, Intermittent, Less than 6 Hours Per Day (ICD-10-PCS; 2018-06-15)
PROC: 5A1945Z Respiratory Ventilation, 24-96 Consecutive Hours (ICD-10-PCS; principal; 2018-06-16)
PROC: 0BH17EZ Insertion of Endotracheal Airway into Trachea, Via Natural or Artificial Opening (ICD-10-PCS; 2018-06-16)
PROC: 5A1D70Z Performance of Urinary Filtration, Intermittent, Less than 6 Hours Per Day (ICD-10-PCS; 2018-06-16)
PROC: 5A1D70Z Performance of Urinary Filtration, Intermittent, Less than 6 Hours Per Day (ICD-10-PCS; 2018-06-17)
PROC: 5A1D70Z Performance of Urinary Filtration, Intermittent, Less than 6 Hours Per Day (ICD-10-PCS; 2018-06-19)
DX: A41.9 Sepsis, unspecified organism (principal); J18.9 Pneumonia, unspecified organism; R65.21 Severe sepsis with septic shock; D65 Disseminated intravascular coagulation [defibrination syndrome]; K72.00 Acute and subacute hepatic failure without coma; J96.90 Respiratory failure, unspecified, unspecified whether with hypoxia or hypercapnia; N17.0 Acute kidney failure with tubular necrosis; N18.6 End stage renal disease; C78.7 Secondary malignant neoplasm of liver and intrahepatic bile duct; C78.00 Secondary malignant neoplasm of unspecified lung; C79.51 Secondary malignant neoplasm of bone; J44.0 Chronic obstructive pulmonary disease with (acute) lower respiratory infection; E46 Unspecified protein-calorie malnutrition; I13.2 Hypertensive heart and chronic kidney disease with heart failure and with stage 5 chronic kidney disease, or end stage renal disease; B37.49 Other urogenital candidiasis; D61.818 Other pancytopenia; E87.4 Mixed disorder of acid-base balance; Z68.42 Body mass index [BMI] 45.0-49.9, adult; I50.9 Heart failure, unspecified; E86.0 Dehydration; D50.9 Iron deficiency anemia, unspecified; F31.9 Bipolar disorder, unspecified; E83.39 Other disorders of phosphorus metabolism; E88.09 Other disorders of plasma-protein metabolism, not elsewhere classified; M15.9 Polyosteoarthritis, unspecified; E87.5 Hyperkalemia; F25.9 Schizoaffective disorder, unspecified; E66.01 Morbid (severe) obesity due to excess calories; M10.9 Gout, unspecified; Y95 Nosocomial condition; G47.30 Sleep apnea, unspecified; I95.3 Hypotension of hemodialysis; E78.5 Hyperlipidemia, unspecified; I08.1 Rheumatic disorders of both mitral and tricuspid valves; Z66 Do not resuscitate; Z85.3 Personal history of malignant neoplasm of breast; Z99.2 Dependence on renal dialysis; Z79.899 Other long term (current) drug therapy; Z92.21 Personal history of antineoplastic chemotherapy; Z17.1 Estrogen receptor negative status [ER-]; Z92.3 Personal history of irradiation